=== PATIENT | female | born 1940 | race Caucasian/White ===

== ENCOUNTER 2017-06-10 10:30 | Outpatient (RCR) | payer MEDICARE, OTHER, SELFPAY ==
--- NOTE | 2017-05-18 13:54 | HP.PTEVAL_ITS ---
Patient's Visit Information EVENS ORDOÑEZ is a 76 year old F referred to Physical Therapy by Elijah PATTEN with a diagnosis of BILATERAL ROTATOR CUFF SYNDROME. Date of Evaluation: 05/18/17 Physical Therapist: Chay Mccauley PT, - Visit Plan Frequency: 2x /Week Duration: 4 Weeks Plan: POSTURAL EX'S,SHOULDER STRENGTHENING,MODALITIES - Subjective Subjective: Patient 76 y/o female presents to physical therapy with bilateral shoulder RTC syndrome. Patient has had shoulder pain for 2 months.Located UT - shoulder with dull ache ocassionally sharp. Symptoms worse with sitting plying cards, lifting OH. Patient has some difficulty sleeping. Denies parathesia/ tingling. Pain affects ADL'S and housework cleaning. SOCIAL: . VOCATION: RETIRED - Pain Bilateral Shoulder Pain Intensity (Out of 10): 3 Pain Intensity Range: 10 - Objective POSTURE: mild head foward. PALPTION: UT /levator. NEUR0: denies parathesia/ tingling ,reflexes C-5-6-7. CERVICAL ROM: flexion min loss,lateral flexion/ rotation mod loss, mod for extension. AROM: shoulder flexion /abduction 160 , ER 90 ,IR 80 degrees. MMT: RTC 4/5 ,except infraspinatous/supraspinatous on left slight pain,deltoid 4-/5 - Special Tests C/S Radiculapathy - Left Upper limb tension test: Negative C/S Radiculapathy - Right Upper limb tension test: Negative C/S Radiculapathy - Left Spurlings: Negative C/S Radiculapathy - Right Spurlings: Negative C/S Radiculapathy - Left Cervical distraction: Negative C/S Radiculapathy - Right Cervical distraction: Negative Vertebral Artery Test: Negative R Shoulder Lift Off Test - Subscapular Tear: Negative R Shoulder Drop Sign - IS Test: Negative R Shoulder Empty Can - SS: Negative R Shoulder Belly Press - SupScap: Negative R Shoulder Neer - Impingement: Negative R Shoulder Miller Armand - Impingement: Negative L Shoulder Supine Impingement Test - RC Tear: Negative L Shoulder Lift Off Test - Subscapular Tear: Negative L Shoulder Drop Sign - IS Test: Negative L Shoulder Empty Can - SS: Negative L Shoulder Neer - Impingement: Negative L Shoulder Miller Armand - Impingement: Negative - Goals Goal 1:: Independa nt with HEP Goal Time Frame: 2-4 Weeks Goal 2:: Independant with posture for ADL'S Goal Time Frame: 2-4 Weeks Goal 3:: Decrease shoulder pain by 50% or greater to improve function with ADL' S Goal Time Frame: 2-4 Weeks Goal 4:: Patient be able to perform ADL'S and house work tasks witgh min , limitations Goal Time Frame: 2-4 Weeks Goal 5:: Patient to increase strength good to impove function. Goal Time Frame: 2-4 Weeks - Rehabilitation Potential Physical Therapy Diagnosis: This patient appears to hane pain bilateral UT - shoulder from postural deficits and weakness. thus benifit from skilled PT Rehabilitation Potential: Good - Anticipated Interventions Patient/Client Instruction: Educate patient on: Condition, Plan of Care For the Purpose of:: To decrease pain, To increase ROM, To improve muscle performance and motor function, To improve ability to perform ADL's, To increase tolerance to activity/condition/position, To improve ability of physical actions for home/community/work/leisure, To improve health of tissue, To decrease soft tissue restriction, To increase flexibility/ROM, To improve ability to perform tasks related to life management Therapeutic Exercise to Include: Strength training, Postural training, Flexibilty training, Active ROM For the Purpose of:: To decrease pain, To increase ROM, To improve muscle performance and motor function, To improve ability to perform ADL's, To increase tolerance to activity/condition/position, To improve performance and independence with ADL's, To improve health of tissue, To decrease soft tissue restriction, To increase flexibility/ROM, To improve ability to perform tasks related to life management TENS: Yes IF ES: Yes Cryotherapy (ice pack, ice massage): Yes Thermo therapy (hot pack): Yes Ultrasound (thermal/non thermal): Yes For the Purpose of:: To decrease pain, To increase ROM, To improve nutrient delivery to tissue, To increase oxygenation perfusion, To improve health of tissue, To decrease soft tissue restriction, To increase flexibility/ROM Thank you for the opportunity to evaluate your patient. For Medicare and Medicare HMO plans, please review the plan of care and approve it. It will need to be FAXED BACK to us at [phone] for Medicare purposes. Please let me know if there are questions or concerns regarding this plan of care. Physician Signature: Date:
--- NOTE | 2017-09-28 16:02 | HP.PTDCSUM_ITS ---
HP - PT D/C Summary It has been my pleasure to treat EVENS Adler MCMORROW under orders from Elijah Adam , for the diagnosis of BILATERAL ROTATOR CUFF SYNDROME for a total of 6 visit(s) . Discharge Date: 06/10/17 Please see the following information for a summary of their discharge status. - Subjective Subjective: Patient symptoms about same. But pain is intermittant. in right shoulder describes as a ache. No pain right now - Pain Bilateral Shoulder Pain Intensity (Out of 10): 0 - Objective Objective/Function: POSTURE: mild foward head. PALPATION: tender UT. AROM: shoulder flexion /abd 155 degrees ,ER 90 ,80 degrees. MMT: RTC 4/5 ,deltoid 4-/ 5. CERVICAL ROM: flexion min loss,rotation/lateral flexion mod loss ext mod loss. + response with cervical traction less pain in shoulder - Goals Goal 1:: Independa nt with HEP Goal Progress: Goal Met Goal 2:: Independant with posture for ADL'S Goal Progress: Progressing Goal 3:: Decrease shoulder pain by 50% or greater to improve function with ADL' S Goal Progress: Progressing Goal 4:: Patient be able to perform ADL'S and house work tasks witgh min , limitations Goal Progress: Progressing Goal 5:: Patient to increase strength good to impove function. Goal Progress: Progressing - Plan Plan: RTD ,possibel cervical involvemnt vs RTC. Pain not reproduced with RTC MMT or motion. playing cards sitting reproduces ache - D/C Information Discharge Comments: RTD FOR FURTHER DIAGNOSTICS If there are questions or concerns regarding this patient's physical therapy, please feel free to call me at [phone]. Thank you for the referral of this patient. Sincerely, Chay Mccauley, PT,
== END 2017-06-10 19:00 | disposition home or self-care (01) ==
LOC: PT 10:30
PROVIDERS: Family Provider Family Medicine; PCP Family Medicine; Visit Provider Family Medicine
DX: M75.102 Unspecified rotator cuff tear or rupture of left shoulder, not specified as traumatic (principal); M75.101 Unspecified rotator cuff tear or rupture of right shoulder, not specified as traumatic
CPT/HCPCS: 97014; 97035; 97110; 97140; 97162; 97530; G0283; G8979; G8982

== ENCOUNTER → 2018-10-12 06:25 | Outpatient (CLI) | payer MEDICARE, OTHER, SELFPAY ==
[2018-02-08 15:35] VITALS: BMI 21.0
[2018-08-09 08:43] VITALS: BMI 20.7
--- NOTE | 2018-10-12 09:10 | STRESSREP_ITS ---
Stress Test Report Date: Procedure: Pharmacologic stress nuclear imaging study Indications: Chest pain; CAD; PCI Consent: Per the patient Procedure: The patient underwent pharmacologic (Regadenoson) evaluation with a peak heart rate of 87 beats per minute (60 %predicted maximal heart rate) and a peak blood pressure of 162/84 mmHg. The baseline ECG demonstrated sinus bradycardia; nonspecific T wave abnormality. The peak pharmacologic ECG demonstrated no obvious ECG changes. There were no cardiac dysrhythmias pretest, during pharmacologic infusion, or recovery. There was no complaint of chest discomfort during pharmacologic infusion or recovery. The examination was discontinued secondary to completion of protocol. Impression: 1. Pharmacologic (Regadenoson) evaluation 2. Peak pharmacologic ECG with no obvious ECG changes. 3. There were no cardiac dysrhythmias pretest, during pharmacologic infusion, or recovery. 4. Nuclear images pending Myocardial perfusion imaging study: Technique: The patient was injected with 11.1 millicuries of technetium 99m Cardiolite and subsequently rest SPECT Cardiolite nuclear imaging was obtained in the horizontal long, vertical long, and short axis views. The patient underwent pharmacologic (Regadenoson) evaluation with a peak heart rate of 87 beats per minute (60 % percent predicted maximal heart rate) and a peak blood pressure of 162/84 mmHg. The patient was injected with 33.3 millicuries of technetium 99m Cardiolite and subsequently stress SPECT Cardiolite nuclear imaging was obtained in the horizontal long, vertical long, and short axis views. A gated Cardiolite study at peak stress was obtained. Interpretation: Rest and stress SPECT Cardiolite nuclear imaging status post realignment, normalization, and attenuation correction demonstrate at rest relative uniform tracer uptake. Status post stress there is notation of a small area of diminished tracer uptake in the mid anterior segments. There is end systolic thickening and brightening. The gated Cardiolite study demonstrates myocardial thickening and inward wall motion. The reported LVEF is 79 %. Impression: 1. Rest and stress SPECT cardio light nuclear imaging demonstrate myocardial perfusion changes compatible with an area of stress-induced myocardial ischemia in the mid anterior segments, however, an element of shifting soft tissue/artifact cannot necessarily be excluded.. 2. The gated Cardiolite study reports an LVEF of 79 %. This note was generated with [employer] software. It may contain incorrect words, spelling, and punctuation that were not noted in checking the note before signing.
== END ==
PROVIDERS: Family Provider Family Medicine; PCP Family Medicine; Referring Provider Internal Medicine Cardiovascular Disease; Visit Provider Internal Medicine Cardiovascular Disease
DX: I25.10 Atherosclerotic heart disease of native coronary artery without angina pectoris (principal); I25.5 Ischemic cardiomyopathy; R07.9 Chest pain, unspecified; Z95.5 Presence of coronary angioplasty implant and graft
CPT/HCPCS: 78452; 93017; A9500; A4216; J2785

== ENCOUNTER 2018-10-25 06:43 | Day surgery (SDC) | payer MEDICARE, OTHER, SELFPAY ==
[2018-08-09 08:43] VITALS: BMI 20.7
--- NOTE | 2018-10-19 03:28 | HP_ITS ---
HPI HPI History of Present Illness Surgical H&P: Yes Details: EVENS ORDOÑEZ, is a 77 F who presents to the office today for a cardiovascular follow-up. She has a history of coronary artery disease with stenting to her LAD and RCA in 2013. 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 She has complained of chest tightness concerning for angina pectoris. She has noted this occurs more so in the evening hours. She has denied orthopnea or PND or peripheral pitting edema. There has been no near syncope or syncope. She is undergone previous noninvasive studies including a recent pharmacologic stress nuclear imaging study. The results are as noted below. She presents back today in preparation for upcoming diagnostic cardiac catheterization. The procedure and risks have been discussed with her. She has been agreeable to this approach. Intake Vital Signs 10/19/18 Height 5 ft 3 in 10/19/18 Weight: 116 lb 10/19/18 Body Mass Index (BMI) 20.5 10/19/18 Blood Pressure 142/60 H 10/19/18 Blood Pressure Location Lt brachial 10/19/18 Blood Pressure Position Sitting 10/19/18 Respiratory Rate 16 10/19/18 Pulse Rate 60 10/19/18 Pulse Source Auscultation 10/19/18 Body Mass Index (BMI) 20.7 Intake Visit Reasons: Update [employer] Required: No Accompanied by: Self Allergies morphine Adverse Reaction (Severe, Verified 10/19/18 14:43) Junctional rhythm lisinopril Adverse Reaction (Intermediate, Verified 10/19/18 14:43) Cough Medications Levothyroxine [Synthroid] 75 mcg PO DAILY 09/23/13 [History Confirmed 10/19/18] Aspirin [Aspirin, Baby] 81 mg PO DAILY@0800 03/16/15 [History Confirmed 10/19/18] Nitroglycerin (INPATIENT USE) [Nitrostat] 0.4 mg SUBLINGUAL Q5M PRN 03/16/15 [History Confirmed 10/19/18] lorazepam 2 mg tablet 1 mg PO QHS tab 02/08/18 [History Confirmed 10/19/18] omeprazole 20 mg capsule,delayed release 40 mg PO DAILY cap 02/08/18 [History Confirmed 10/19/18] losartan 50 mg tablet 50 mg PO BID #180 tab 05/31/18 [Rx Confirmed 10/19/18] amlodipine 5 mg tablet 5 mg PO DAILY #90 tab 07/10/18 [Rx Confirmed 10/19/18] pravastatin 80 mg tablet 80 mg PO QHS #90 tab 07/10/18 [Rx Confirmed 10/19/18] metoprolol tartrate 25 mg tablet 25 mg PO BID #180 tab 07/31/18 [Rx Confirmed 10/19/18] clopidogrel 75 mg tablet 75 mg PO DAILY #30 tab 10/19/18 [Rx Confirmed 10/19/18] PFS Medical History Abnormal stress test (Acute) Pure hypercholesterolemia (Chronic) Essential hypertension (Chronic) Atherosclerotic heart disease of [place] coronary artery without angina pectoris (Chronic) History of coronary artery stent placement (Chronic ~09/25/13) Old myocardial infarction (Chronic) meterman use of drug (Chronic) Ischemic cardiomyopathy (Chronic) Abnormal ECG (Chronic) Abnormal serum enzyme level (Chronic) Angina pectoris (Chronic) Chest pain (Chronic) Hypothyroidism (Chronic) NSTEMI (non-ST elevation myocardial infarction) (Chronic) Surgical History Presence of coronary angioplasty implant and graft (Chronic ~09/25/13) Family History Mother Breast cancer Myocardial infarction CAD (coronary artery disease) Diabetes Father Myocardial infarction CAD (coronary artery disease) Brother Myocardial infarction Diabetes CAD (coronary artery disease) Sister Breast cancer Hypertension Social History (Updated 10/19/18 @ 15:28 by Arnaud Mata MD) Smoking Status: Never smoker alcohol intake: never substance use type: does not use caffeine: No what type of physical activity do you participate in: walking frequency: 3-4 times per week duration: 45-60 minutes/day seatbelt use: always do you feel safe at home: Yes ROS Const Const: Negative for fatigue, weakness, frequent falls, excessive sweating, weight gain or weight loss Eyes Eyes: Negative for transient loss of vision, blurry vision or change in vision ENT ENT: Negative for dizziness or balance problems Cardio Chest Pain: Yes Character: tightness Onset: with meals (after) Location: other (across the chest) Duration: minutes Relieving: rest, other (rolaids) Palpitations: No Edema: None Muscle aches with walking: None Resp Respiratory: Negative for SOB with activity or SOB at rest GI GI: Negative vomiting or vomiting blood/hematemesis : Negative for hematuria Musc Musc: Negative for muscle aches/ myalgia, muscle weakness, joint pain or balance problems Skin Skin: Negative non-healing lesions or rash Neuro Neuro: Negative for dizziness, lightheadedness, orthostatic symptoms, frequent falls, weakness or blurry vision Jovani Hematologic/Lymphatic: Negative for easy bleeding Endo Endo: Negative for fatigue or excessive sweating Psych Psych: Negative for anxiety or depression Allergy Allergy/Immunology: Negative for hives, Negative for rash Cardiology Exam Const Appearance: cooperative, healthy appearing, comfortable, no acute distress, well developed and well groomed Nutritional Appearance: thin Orientation: alert, awake and oriented x3 Head Head: normal to inspection, normocephalic and atraumatic Ears: hearing grossly normal bilaterally Nose: external nose normal Face and Sinus: face symmetric Mouth: moist mucous membranes Teeth and gingiva: fair dentition Eyes Eyelids: eyelids normal Conjunctivae: conjunctivae normal Pupils: PERRL EOM: EOM intact bilaterally Neck Neck: normal visual inspection, full ROM and no JVD Carotids: normal carotid upstroke; negative bruit Neck Mass: Negative Neck mass Chest Chest inspection: normal inspection of the chest, symmetric chest movement and normal respiratory effort Auscultation: Bilateral: Clear to Auscultation Cardio Palpation: normal PMI Rate: regular rate Rhythm: regular rhythm Heart sounds: S1 normal and S2 normal; negative rub, gallop or murmur Murmur: Grade 2/6, soft, mid systolic, LLSB, LVOT and sternal notch GI GI: normal to inspection, soft and bowel sounds present; negative tender Neuro General: alert, awake, oriented x3 and moves all extremities Skin Skin: no rashes or lesions noted Extremities Pulses: Normal: Right Posterior Tibial Pulse, Left Posterior Tibial Pulse, Right Radial Pulse, Left Radial Pulse Lower Extremity Edema: None: Bilateral Psych Psychological: normal affect Assessment & Plan 1. Angina pectoris I20.9 Plan She does have symptoms concerning for angina pectoris. She is continuing medical management. She is going to proceed with further evaluation with diagnostic cardiac catheterization. Orders Orders: Left Heart Cath/COR/LV Percut Today Echo Complete Today 2. CAD (coronary artery disease), [place] coronary artery I25.10 Plan She does have a history of CAD. She is undergone medical therapy. She has had PCI in the past. Based upon her ongoing symptoms concerning for angina pectoris and her recent noninvasive studies she will have further evaluation with diagnostic cardiac catheterization. Orders Orders: Left Heart Cath/COR/LV Percut Today Echo Complete Today 3. H/O heart artery stent Z95.5 PTCA/POLA from the mid to distal RCA and from the prox to mid RCA 09/25/13; Plan She has a history of PCI. This includes PCI to the LAD and the RCA systems. Her stress images suggest concerns in the LAD distribution. She will continue evaluation care as noted above. Orders Orders: Left Heart Cath/COR/LV Percut Today Echo Complete Today 4. Cardiomyopathy, ischemic I25.5 Plan She will have a follow-up echocardiogram to reassess her left ventricular wall motion and overall systolic function. Orders Orders: Left Heart Cath/COR/LV Percut Today Echo Complete Today 5. Aortic valve disorder I35.9 Plan She does have a cardiac murmur. This may be related to aortic sclerosis. She will be reassessed with an echo cardia graphic study to compare to her study from 2015. Orders Orders: Left Heart Cath/COR/LV Percut Today Echo Complete Today 6. Pure hypercholesterolemia E78.00 Plan She will continue risk factor evaluation and care. Orders Orders: Left Heart Cath/COR/LV Percut Today Echo Complete Today 7. Essential hypertension I10 Orders Orders: Left Heart Cath/COR/LV Percut Today Echo Complete Today 8. Abnormal stress test R94.39 Plan Again she is undergone evaluation with an exercise tolerance test. The results are as noted above. She will proceed with further evaluation with diagnostic cardiac catheterization. Orders Orders: Left Heart Cath/COR/LV Percut Today Echo Complete Today Plan Detail Other Medications New: clopidogrel 75 mg PO DAILY 30 tabs 3RF Additional Comments She will continue with future outpatient cardiovascular follow-up. Thank you for allowing me to participate in the care of your patient. Please don't hesitate to call if any issues arise. This note was generated using a voice recognition system and there may be incorrect words, spelling or punctuation that were not noted when reviewing the office note prior to saving. Follow Up 03/12/19 (PFM) Coding Level of Care Code Off vis,est,level 5 Diagnoses Angina pectoris I20.9 CAD (coronary artery disease), [place] coronary artery I25.10 ??[place] vs. transplanted heart: [place] heart H/O heart artery stent Z95.5 Cardiomyopathy, ischemic I25.5 Aortic valve disorder I35.9 Pure hypercholesterolemia E78.00 Essential hypertension I10 Abnormal stress test R94.39 Coding Level of Care Code Off vis,est,level 5 Diagnoses Angina pectoris I20.9 CAD (coronary artery disease), [place] coronary artery I25.10 ??[place] vs. transplanted heart: [place] heart H/O heart artery stent Z95.5 Cardiomyopathy, ischemic I25.5 Aortic valve disorder I35.9 Pure hypercholesterolemia E78.00 Essential hypertension I10 Abnormal stress test R94.39 Supplemental Info Supplemental Information Transthoracic echocardiogram: Interpretation Summary Limited views were obtained. Mild segmental systolic dysfunction (see wall motion). The estimated ejection fraction is 50 %. The left atrium is mildly enlarged. Mild focal aortic valve thickening. Mild focal aortic valve calcification. Stress Test Report Date: ?? Procedure: Pharmacologic stress nuclear imaging study Indications: Chest pain; CAD; PCI Consent: Per the patient Procedure: The patient underwent pharmacologic (Regadenoson) evaluation with a peak heart rate of 87 beats per minute (60 %predicted maximal heart rate) and a peak blood pressure of 162/84 mmHg. The baseline ECG demonstrated sinus bradycardia; nonspecific T wave abnormality. The peak pharmacologic ECG demonstrated no obvious ECG changes. There were no cardiac dysrhythmias pretest, during pharmacologic infusion, or recovery. There was no complaint of chest discomfort during pharmacologic infusion or recovery. The examination was discontinued secondary to completion of protocol. Impression: 1. Pharmacologic (Regadenoson) evaluation 2. Peak pharmacologic ECG with no obvious ECG changes. 3. There were no cardiac dysrhythmias pretest, during pharmacologic infusion, or recovery. 4. Nuclear images pending Myocardial perfusion imaging study: Technique: The patient was injected with 11.1 millicuries of technetium 99m Cardiolite and subsequently rest SPECT Cardiolite nuclear imaging was obtained in the horizontal long, vertical long, and short axis views. The patient underwent pharmacologic (Regadenoson) evaluation with a peak heart rate of 87 beats per minute (60 % percent predicted maximal heart rate) and a peak blood pressure of 162/84 mmHg. The patient was injected with 33.3 millicuries of technetium 99m Cardiolite and subsequently stress SPECT Cardiolite nuclear imaging was obtained in the horizontal long, vertical long, and short axis views. A gated Cardiolite study at peak stress was obtained. Interpretation: Rest and stress SPECT Cardiolite nuclear imaging status post realignment, normalization, and attenuation correction demonstrate at rest relative uniform tracer uptake. Status post stress there is notation of a small area of diminished tracer uptake in the mid anterior segments. There is end systolic thickening and brightening. The gated Cardiolite study demonstrates myocardial thickening and inward wall motion. The reported LVEF is 79 %. Impression: 1. Rest and stress SPECT cardio light nuclear imaging demonstrate myocardial perfusion changes compatible with an area of stress-induced myocardial ischemia in the mid anterior segments, however, an element of shifting soft tissue/artifact cannot necessarily be excluded.. 2. The gated Cardiolite study reports an LVEF of 79 %. Labs LDL Cholesterol 59 mg/dL (0-130) 06/12/15 HDL Cholesterol 56 mg/dL (40-) 06/12/15 Triglycerides 128 mg/dL (-199) 06/12/15 VLDL Cholesterol 26 mg/dL (5-40) 06/12/15 Diagnostics Electrocardiogram 05/13/16 Echocardiogram 03/20/14 Stress Test Nuclear Medicine 08/22/14 Stress Test 10/12/18 Chest X-Ray 05/13/16 10/19/18 [id number] <Electronically signed by Arnaud gonsalez MD> Date _ Arnaud Mata MD I have re-examined the patient. There are no clinical changes since date of exam.
[2018-10-19 14:43] VITALS: BMI 20.5
--- NOTE | 2018-10-19 15:35 | RAD_ITS ---
STUDY: X-RAY CHEST REASON FOR EXAM: Female, 77 years old. Abnormal stress test, chest tightness, pending heart catheterization future. TECHNIQUE: PA and lateral chest COMPARISON: 05/13/2016 FINDINGS: Stable chronic calcified granuloma of the left lung apex. Pulmonary hyperlucency and hyperinflation with hemidiaphragm flattening consistent with COPD/emphysema. Normal cardiomediastinal silhouette, dylan and pleural margins. No acute osseous or upper abdominal process. 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 Electronically Signed: Darwin Mercado MD at 16:10 EDT Tel , Service support ,
[2018-10-19 17:06] LABS: Hematocrit 44.4 % (37-47); Hemoglobin 14.2 g/dL (12.0-15.0); Mean Corpuscular Hgb 29.7 pg (27.0-32.0); Mean Corpuscular Volume 92.9 fL (81-99); Platelet Count 299 K/mm3 (150-450); RBC Distribution Width CV 12.4 % (11.6-14.6); RBC Distribution Width SD 42.5 fl (35.1-43.9); Red Blood Count 4.78 M/mm3 (4.2-5.4)
[2018-10-19 17:16] LABS: Prothrombin Time (Protime)PT. 12.9 SECONDS (11.7-14.9)
[2018-10-19 17:17] LABS: Partial Thromboplast Time 36.4 Seconds (24.1-36.2)
[2018-10-19 18:07] LABS: Anion Gap 10 (5-15); BUN 13 mg/dL (7-18); Calcium,Total 8.9 mg/dL (8.5-10.1); Chloride 106 mmol/L (98-107); Creatinine, Serum 0.81 mg/dL (0.55-1.02); EST Glomerular Filtration Rate 73 mL/min (>60); Est Glom Filt Rate - Afr Amer 88 mL/min (>60); Glucose 73 mg/dL (74-106); Sodium Level 142 mmol/L (136-145)
--- NOTE | 2018-10-25 19:15 | CL.D_ITS ---
Patient Name: EVENS ORDOÑEZ Study Date: 10/25/2018 Performing: Arnaud Mata MD Ht: 63 inches 160 cm : 1940 Wt: 115.1 lbs 52.16 kg Age: 77 Gender: female BSA: 1.53 PROCEDURE(S) PERFORMED [id number]/LV CLINICAL PROFILE AND INDICATIONS Indications: Worsening Angina Heart Failure: None Stress/Imaging Date: 10/12/18Stress Test with SPECT MPI: Positive Angina Classification Anginal Classification w/in 2 Weeks: CCS III CAD Presentations: Stable angina. CONCLUSIONS Normal Left Ventricular End Diastolic Pressure Normal LV size, wall motion,and systolic function LVEF: by LV gram 55 % [place] Multivessel CAD RECOMMENDATIONS Risk factor modification Medical therapy DESCRIPTION OF PROCEDURE The patient arrived to the procedure lab. The risks and benefits of the procedure as well as a full d escription of our services here and current unavailability of surgical backup were fully explained to the patient and/or their significant other prior to the catheterization. The Timeout was completed, verifying the correct patient and procedure. The patient's procedural site was prepped and draped in the usual fashion. Local anesthetic was given subcutaneously to right groin region with Lidocaine 2%. Using a modified Seldinger technique, arterial access was obtained via the right femoral artery, a 4 Fr sheath was inserted Left Coronary Artery selective angiography was performed in multiple views us ing a 4 Fr. JL5 catheter. Right Coronary Artery selective angiography was then performed in multiple views using a 4 Fr. 3DRC catheter. Left Ventriculography was performed in JORDAN projection using a 4 Fr . Pigtail catheter. LV to AO pullback pressures were then recorded. Left Coronary Artery selective angiography was performed in multiple views using a 4 Fr. JL5 catheter.The arterial sheath was pulled and manual compression applied until hemostasis is achieved. CORONARY ANGIOGRAPHY DOMINANCE: Right Dominant LEFT HEART ASSESSMENT Left Ventricular Ejection Fraction: by LV Gram 55 % Normal LV wall motion Normal Left Ventricular End Diastolic Pressure LVEDP: 8 mmHg LEFT MAIN: Absent: Separate ostia to the LAD and LCX LEFT ANTERIOR DESCENDING ARTERY: PROX LAD: Previously placed stent is patent MID LAD: small caliber vessel: 85 % Stenosis with no significant change s/p IC NTG 200 mcg CIRCUMFLEX ARTERY: small caliber vessel: diffuse 95 % Stenosis RIGHT CORONARY ARTERY: PROX RCA: Previously placed stent is patent MID RCA: Previously placed stent is patent DISTAL RCA: Mild luminal irregularities VALVE FINDINGS: Normal Aortic Valve function Normal Mitral Valve function AORTIC ROOT: Angiographically normal COMPLICATIONS No Complications PROCEDURE MEDICATIONS Versed 1 mg IV Oxygen: 2 L/min via nasal cannula Nitro 200 mcg IC 10/25/2018 08:39:24 SUMMARY OF HEMODYNAMIC DATA Time AIR REST ECG 07:02:47 AO 146/68 (97) SA 08:14:10 ECG 08:21:14 LV 169/12, 29 08:22:21 LV 156/10, 27 08:22:27 LV 166/7, 27 08:23:10 LV 175/5, 8 08:23:15 LV 181/11, 30 08:24:10 LV 162/14, 25 08:24:16 LVp 186/39, 70 08:24:23 AOp 187/92 (134) 08:24:28 ECG 08:25:39 Signed By Arnaud Mata MD On 10/25/2018 19:15:22 Arnaud Mata MD
== END 2018-10-25 13:10 | disposition home or self-care (01) ==
LOC: CLSP 06:44
PROVIDERS: Family Provider Family Medicine; PCP Family Medicine; Referring Provider Internal Medicine Cardiovascular Disease; Visit Provider Internal Medicine Cardiovascular Disease
DX: I25.110 Atherosclerotic heart disease of native coronary artery with unstable angina pectoris (principal); R07.9 Chest pain, unspecified; E78.00 Pure hypercholesterolemia, unspecified; I10 Essential (primary) hypertension; I35.9 Nonrheumatic aortic valve disorder, unspecified; I25.5 Ischemic cardiomyopathy; E03.9 Hypothyroidism, unspecified; R01.1 Cardiac murmur, unspecified; I25.2 Old myocardial infarction; Z79.82 Long term (current) use of aspirin; Z95.5 Presence of coronary angioplasty implant and graft; R94.39 Abnormal result of other cardiovascular function study; Z82.49 Family history of ischemic heart disease and other diseases of the circulatory system
CPT/HCPCS: 36415; 71046; 80048; 85027; 85610; 85730; 93458; 99152; 99153; J7040; Q9967; C1769; C1887; C1894

== ENCOUNTER → 2018-11-16 10:54 | Outpatient (CLI) | payer MEDICARE, OTHER, SELFPAY ==
[2018-10-19 14:43] VITALS: BMI 20.5
--- NOTE | 2018-11-16 10:55 | ECHOD_ITS ---
Reason For Study: MURMUR Procedure This was a 2D Doppler, Color Flow transthoracic echocardiogram. The exam was of adequate technical quality. Exam performed in department. Left Ventricle Normal LV size. Left ventricular systolic function is normal. The estimated ejection fraction is 55 %. No evidence for diastolic dysfunction. No regional wall motion abnormalities noted. Right Ventricle Normal RV size. Normal systolic function. Atria The left atrium is mildly enlarged. Normal right atrium. No doppler evidence for ASD. Mitral Valve There is no mitral annular calcification. Normal mitral valve. Mild-Moderate (1-2+) mitral valve insufficiency. Tricuspid Valve Normal tricuspid valve. Mild tricuspid valve insufficiency. Right ventricular systolic pressure estimated to be 29 mmHg. Aortic Valve Trisinus/trileaflet aortic valve. Mild focal aortic valve thickening. Pulmonic Valve The pulmonic valve is not well visualized. Trivial pulmonic valve insufficiency. Great Vessels Normal sized aortic root. Pericardium/Pleural No pericardial effusion. MMode/2D Measurements & Calculations LVIDd: 4.7 cm IVSd: 0.96 cm Ao root diam: 3.0 cm LVIDs: 3.0 cm LVPWd: 0.89 cm RVDd: 3.2 cm FS: 35.7 % LAV(MOD-bp): 44.8 ml LA A4 area: 15.3 cm2 LA dimension(2D): 3.5 cm LAV(MOD-bp) Indexed: 29.4 ml/m2 LAV(MOD-sp2): 56.3 ml LAV(MOD-sp4): 35.1 ml RA A4 area: 14.3 cm2 Time Measurements MV dec time: 0.22 sec Doppler Measurements & Calculations MV E max gage: 62.7 cm/sec Lat Peak E' Gage: 7.7 cm/sec Med Peak E' Gage: 4.7 cm/sec MV A max gage: 79.3 cm/sec E/E' lat: 8.2 E/E' med: 13.3 MV E/A: 0.79 Ao V2 max: 163.3 cm/sec AI max gage: 474.1 cm/sec LV V1 max: 93.0 cm/sec Ao max P.7 mmHg AI max P.9 mmHg LV V1 max P.5 mmHg AI dec slope: 214.4 cm/sec2 AI P1/2t: 647.5 msec PA V2 max: 74.0 cm/sec PI end-d gage: 103.2 cm/sec TR max gage: 256.0 cm/sec TR max P.2 mmHg Interpretation Summary Left ventricular systolic function is normal. The estimated ejection fraction is 55 %. The left atrium is mildly enlarged. Mild-Moderate (1-2+) mitral valve insufficiency. Mild tricuspid valve insufficiency. Mild focal aortic valve thickening. Trivial pulmonic valve insufficiency. Right ventricular systolic pressure estimated to be 29 mmHg. No evidence for diastolic dysfunction. Ordering Physician: Arnaud Mata Referring Physician: JORDYN PINEDA Performed By: Riri Chris, BRETT, RVT
== END ==
PROVIDERS: Family Provider Family Medicine; PCP Family Medicine; Referring Provider Internal Medicine Cardiovascular Disease; Visit Provider Internal Medicine Cardiovascular Disease
DX: I25.119 Atherosclerotic heart disease of native coronary artery with unspecified angina pectoris (principal); I10 Essential (primary) hypertension; I25.5 Ischemic cardiomyopathy; I35.9 Nonrheumatic aortic valve disorder, unspecified; Z95.5 Presence of coronary angioplasty implant and graft; R94.39 Abnormal result of other cardiovascular function study; E78.00 Pure hypercholesterolemia, unspecified
CPT/HCPCS: 93306

== ENCOUNTER 2019-04-04 13:30 | Outpatient (RCR) | payer MEDICARE, OTHER, SELFPAY ==
[2019-02-28 13:02] VITALS: BMI 21.8
--- NOTE | 2019-03-28 13:50 | HP.PTEVAL ---
Patient's Visit Information EVENS ORDOÑEZ is a 78 year old F referred to Physical Therapy by Ulices Wahl DO with a diagnosis of Bilateral Shoulder Pain. Date of Evaluation: 03/28/19 Physical Therapist: Rocio Rain DPT - Visit Plan Frequency: 2x /Week Duration: 4 Weeks Plan: Focus on scap s/s and postural strengthening - Subjective Findings: Patient reports that both of her shoulders are giving out- saw Dr. 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 Its better but they both still bother her. Right hand dominate. Pain is located in the shoulder blade- No radiating pain. Describes the pain as dull and achy. 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 No KATZ, blurred vision or dizziness. Worst: 4/10 Agg: playing cards - reaching out to pull in cards. Eases: wears a brace when she plays cards, aspercream, heat. Best: 0/10. Sleep: if she plays cards late they ache before bed but don't wake her up- side sleeper. Plays cards- 5x a week. PMHx/Meds: see list. - Objective Posture: FH, RS- can correct but does not maintain. Gait: no deviation noted- good arm swing and trunk rotation. Observation: winging of the tip of the scapula. Palpatoin: not tender. ROM: WFL in all planes of the cervical spine, shoulder, elbow and wrist/hand. Strength: Scap: poor, Shoulder: 4/5 throughout bilaterally Elbow: 4/5, Wrist: 4+/5 Pathologist Assistant: equal. Special Test: impingment: negative, Empty Can: negative - Goals Goal 1:: Patient will be I with HEP and progression Goal Time Frame: 4-6 Weeks Goal 2:: Patient will maintain proper posture t/o tx session to demo increased scap s/s Goal Time Frame: 4-6 Weeks Goal 3:: Patient will report no pain with cards for 1 week Goal Time Frame: 4-6 Weeks - Rehabilitation Potential Physical Therapy Diagnosis: Patient presents with hypomobility- she has decreased ROM, strength and muscular endurance leading to poor posture and increased pain with ADl's. Rehabilitation Potential: Good - Anticipated Interventions Patient/Client Instruction: Educate patient on: Benefits of Fitness Program Therapeutic Exercise to Include: Strength training, Endurance training, Body mechanics, Postural training, Neuromotor development, Passive ROM, Active ROM, Dynamic Lumbar Stabilization, Scapular Strength/Stabilization For the Purpose of:: To improve muscle performance and motor function Thank you for the opportunity to evaluate your patient. For Medicare and Medicare HMO plans, please review the plan of care and approve it. It will need to be FAXED BACK to us at [phone] for Medicare purposes. For Medicare only, by signing this I certify the plan of care. Please let me know if there are questions or concerns regarding this plan of care. Physician Signature: Date:
--- NOTE | 2019-07-03 11:19 | HP.PT.NRP ---
EVENS ORDOÑEZ was seen in my office for initial evaluation on 03/28/19. The following Plan of Care was established for this patient: Initial Frequency: 2x /Week Initial Duration: 4 Weeks Patient/Client Instruction: Educate patient on: Benefits of Fitness Program Therapeutic Exercise to Include: Strength training, Endurance training, Body mechanics, Postural training, Neuromotor development, Passive ROM, Active ROM, Dynamic Lumbar Stabilization, Scapular Strength/Stabilization For the Purpose of:: To improve muscle performance and motor function This patient was last seen in our office . Pertinent comments regarding their Physical therapy will appear below: Patient has not attended physical therapy in over 8 weeks- appropriate for d/c and return to MD as appropriate. At this point I will be discontinuing this patient from physical therapy. I would be happy to see this patient again in the future if found appropriate by the physician. Thank you! ARTURO NormanT
== END 2019-04-04 19:00 | disposition home or self-care (01) ==
LOC: PT 13:30
PROVIDERS: PCP Family Medicine; Visit Provider Orthopaedic Surgery
DX: M19.011 Primary osteoarthritis, right shoulder (principal)
CPT/HCPCS: 97110; 97161

== ENCOUNTER → 2019-09-14 10:53 | Outpatient (CLI) | payer MEDICARE, OTHER, SELFPAY ==
[2019-09-12 14:38] VITALS: BMI 21.5
== END ==
PROVIDERS: PCP Family Medicine; Referring Provider Internal Medicine Cardiovascular Disease; Visit Provider Internal Medicine Cardiovascular Disease
DX: R00.2 Palpitations (principal); I25.119 Atherosclerotic heart disease of native coronary artery with unspecified angina pectoris; I34.9 Nonrheumatic mitral valve disorder, unspecified; I25.5 Ischemic cardiomyopathy; I10 Essential (primary) hypertension; E78.00 Pure hypercholesterolemia, unspecified; Z95.5 Presence of coronary angioplasty implant and graft
CPT/HCPCS: 93225; 93226

== ENCOUNTER → 2019-10-02 | Outpatient (CLI) | payer MEDICARE, OTHER, SELFPAY ==
[2019-09-12 14:38] VITALS: BMI 21.5
== END | disposition home or self-care (01) ==
LOC: LABSPEC 16:24
PROVIDERS: PCP Family Medicine; Referring Provider Urology; Visit Provider Urology
DX: R82.998 Other abnormal findings in urine (principal)
CPT/HCPCS: 87086

== ENCOUNTER 2019-10-05 12:14 | Emergency (ER) | payer MEDICARE, OTHER, SELFPAY ==
[2019-09-12 14:38] VITALS: BMI 21.5
[2019-10-05 12:15] VITALS: BP 138/88; PULSE 117; RESP 20; TEMP 36.8; O2SAT 97; BMI 20.8
--- NOTE | 2019-10-05 12:37 | ED.VIS.GEN ---
History of Present Illness Chief Complaint: Complaint Informant: Patient Narrative: Patient states for several weeks she has had pelvic pressure. She states that it feels like it is right at the vaginal introitus. She saw urology and was told that she did not have a prolapsed bladder. She got put on antibiotics but the culture came back negative. Frequency or dysuria. She feels like she empties the bladder appropriately. She used a mirror today and felt that she could see something prolapsing out of her vagina so she came to emergency. She has not seen a leather piece inspector for years. Past Medical History - Allergies and Home Meds Allergies/Adverse Reactions: Allergies morphine Adverse Reaction (Severe, Verified 10/05/19 12:38) Junctional rhythm lisinopril Adverse Reaction (Intermediate, Verified 10/05/19 12:38) Cough Primary Care Physician: Carmen Prather DO [STAFF PHYSICIAN] - As soon as possible Surgical History: noncontributory Smoking Status: Never smoker - Family History Maternal Family History: Family History (Last Reviewed 02/28/19 @ 13:06 by Ligia Campbell) Mother Breast cancer Myocardial infarction CAD (coronary artery disease) Diabetes Father Myocardial infarction CAD (coronary artery disease) Brother Myocardial infarction Diabetes CAD (coronary artery disease) Sister Breast cancer Hypertension Family History: Reports: No pertinent history Paternal Family History: Family History (Last Reviewed 02/28/19 @ 13:06 by Ligia Campbell) Mother Breast cancer Myocardial infarction CAD (coronary artery disease) Diabetes Father Myocardial infarction CAD (coronary artery disease) Brother Myocardial infarction Diabetes CAD (coronary artery disease) Sister Breast cancer Hypertension Family History: Reports: No pertinent history Review of Systems General: Denies: Chills, Fever, Sweats Eyes: Denies: Visual changes - bilaterally, Diplopia ENT: Denies: Rhinorrhea, Sore throat Cardiovascular: Denies: Chest pain, Palpitations Respiratory: Denies: Dyspnea, Cough, Dyspnea on exertion Gastrointestinal: Denies: Abdominal pain, Nausea, Vomiting, Diarrhea, Melena, Hematochezia Genitourinary: Reports: - - Pelvic pressure. Denies: Dysuria, Hematuria, Frequency Musculoskeletal: Denies: Back pain, Extremity Pain Skin: Denies: Rash, Wounds Neurological: Denies: Headache, Weakness, Numbness Physical Exam Vital Signs/Narrative: Vital Signs Temp Pulse Resp BP Pulse Ox 10/05/19 12:15 98.2 F 117 H 20 H 138/88 H 97 Inital Vital Signs reviewed: Yes General: Well nourished, Well developed, No Acute Distress Head: Normocephalic, Atraumatic Eyes: Perrl, EOMI ENT: Moist mucous membranes, No rhinorrhea Neck: Supple, Nontender Cardiovascular: Regular rate, Regular rhythm, No murmurs Respiratory: No distress, CTA bilaterally, Chest nontender Abdomen: Soft, Nontender, Nondistended, Normal bowel sounds : - - External genitalia appear normal. There appears to be some anterior vaginal wall weakness but I do not feel the bladder behind it. I do not see a uterine prolapse. There is no rectal pain. Back: Nontender, Normal Inspection Extremities: Nontender, No edema Skin: Normal color, No rash Neurological: Alert, Oriented x3, Cranial nerves II-XII grossly intact, Normal Strength, Normal Sensation Psychological: Normal affect, Normal Mood Diagnostic/Tx/Re-eval - Medical Decision Making Patient does not wish to have a urine specimen analyzed today. States she needs to get to her dentist appointment. Patient will be advised to follow-up either with urology or with gynecology. Advised her it is not a typical diagnosis in the emergency room to find bladder prolapse and I would leave that diagnosis to the experts in that field. Do not see evidence of acute emergency and think this is reasonable to follow-up. ED Disposition - Plan for ED Patient: Disposition: Home or Assisted Living Diagnosis: Pelvic pressure in female Instructions: ED Pelvic Pain [facility] Referrals: Carmen Prather DO [STAFF PHYSICIAN] - As soon as possible
--- NOTE | 2019-10-05 13:14 | ED.RN ---
PT DECLINES TO HAVE URINE SENT FOR A SAMPLE, STATES SHE NEEDS TO LEAVE FOR A DENTIST APPT.
== END 2019-10-05 13:15 | disposition home or self-care (01) ==
LOC: ED 12:49
PROVIDERS: Emergency Provider Emergency Medicine; PCP Family Medicine
DX: R10.2 Pelvic and perineal pain (principal); Z79.82 Long term (current) use of aspirin
CPT/HCPCS: 99282

== ENCOUNTER 2020-06-21 12:31 | Emergency (ER) | payer MEDICARE, OTHER, SELFPAY ==
[2020-04-29 13:38] VITALS: BMI 21.2
[2020-06-21 12:32] VITALS: BP 177/76; PULSE 52; RESP 16; TEMP 36.4; O2SAT 98; BMI 21.2
--- NOTE | 2020-06-21 12:57 | EX.ED.DYSGE1 ---
HPI History of Present Illness Chief Complaint: Anxiety Informant: patient Onset/Context/Timing Onset: Month(s) (worse today) Context: Gradual Onset Timing: Continuous Quality: nervous Location: all over Current Severity: Severe Maximum Severity: Severe Worsened by: nothing in particular Relieved by: nothing; hasn't tried any specific treatments today Associated Symptoms Associated Symptoms: denies physical sx Narrative Narrative: Patient states she has a history of anxiety, she was on lorazepam nightly to help her sleep along with helping this, her doctor wanted to get her off of it so she tapered off it about 5 weeks ago, which is the last time she took it. Several weeks ago she was started on buspirone which she has been taking. She states she learned that her doctor is retiring and she will need to find a new doctor, which is making her anxiety worse. Today she has been feeling more anxious still, she went out and ran some errands, and when she came back she was feeling worse to the point of possibly having a nervous breakdown so she came to the ER to see if there was some medication that could help her today. She denies any lightheadedness, palpitations, shortness of breath, GI symptoms, or any other systemic physical symptoms. She denies any suicidal ideation or thoughts. [facility] Medical History (Updated 06/21/20 @ 14:[address] Ervin Gallegos MD) Abnormal ECG Abnormal serum enzyme level Abnormal stress test Angina pectoris Atherosclerotic heart disease of [place] coronary artery without angina pectoris Bladder prolapse Chest pain Essential hypertension History of coronary artery stent placement (~09/25/13) Hypothyroidism Ischemic cardiomyopathy senior care use of drug Nonrheumatic mitral valve disorder NSTEMI (non-ST elevation myocardial infarction) Old myocardial infarction Pure hypercholesterolemia Home Medications aspirin 81 mg PO DAILY@0800 03/16/15 [History Last Taken 10/25/18] pravastatin 80 mg tablet 80 mg PO QHS #90 tab 07/20/19 [Rx Last Taken Unknown] nitroglycerin 0.4 mg sublingual tablet 0.4 mg SUBLINGUAL Q5M PRN #90 tab 09/12/19 [Rx Last Taken Unknown] omeprazole 20 mg capsule,delayed release 20 mg PO BID cap 09/12/19 [History Last Taken Unknown] levothyroxine 75 mcg tablet 75 mcg PO .COMPLEX 03/31/20 [History Last Taken Unknown] diltiazem HCl 120 mg capsule,extended release 24 hr 120 mg PO DAILY #30 cap 04/22/20 [Rx Last Taken Unknown] metoprolol tartrate 50 mg tablet 50 mg PO BID #270 tab 04/22/20 [Rx Last Taken Unknown] isosorbide mononitrate 30 mg tablet,extended release 24 hr 30 mg PO BID #180 tab 04/29/20 [Rx Last Taken Unknown] buspirone [BuSpar] 10 mg PO TID 06/21/20 [History Last Taken Unknown] hydroxyzine pamoate [Vistaril] 50 mg PO Q6H PRN #20 cap 06/21/20 [Rx Last Taken Unknown] Allergy/AdvReac Type Severity Reaction Status Date / Time morphine AdvReac Severe Junctional Verified 06/21/20 12:31 rhythm lisinopril AdvReac Intermediate Cough Verified 06/21/20 12:31 Family History Mother Breast cancer Myocardial infarction CAD (coronary artery disease) Diabetes Father Myocardial infarction CAD (coronary artery disease) Brother Myocardial infarction Diabetes CAD (coronary artery disease) Sister Breast cancer Hypertension Surgical History Presence of coronary angioplasty implant and graft (~09/25/13) Social History (Updated 05/01/20 @ 10:44 by Ligia GILES, PA) Smoking Status: Never smoker alcohol intake: never substance use type: does not use caffeine: No what type of physical activity do you participate in: walking frequency: 3-4 times per week duration: 45-60 minutes/day seatbelt use: always do you feel safe at home: Yes ROS ROS ED Constitutional Constitutional ED: Denies chills or fever(s) Eyes Eyes: Denies change in vision or diplopia ENT ENT ED: Denies rhinorrhea or sore throat Cardiovascular Cardiovascular: Denies chest pain or palpitations Respiratory/Chest Respiratory/Chest: Denies cough or dyspnea Gastrointestinal Gastrointestinal: Denies abdominal pain, diarrhea, nausea or vomiting Genitourinary Genitourinary ED: Denies dysuria or hematuria Musculoskeletal Musculoskeletal: Denies back pain or neck pain Integumentary Denies abscess or rash Neurologic Neurologic: Denies headache(s), paresthesias or weakness Psychiatric Psychiatric: Denies suicidal thoughts EXAM Physical Exam Const Vital Signs: 06/21/20 12:32 Temperature 97.6 F L Temperature Source Temporal Pulse Rate 52 L Respiratory Rate 16 Blood Pressure 177/76 H Blood Pressure Mean 109 Pulse Ox 98 Oxygen Delivery Method Room Air Positive well nourished and well developed General Appearance ED: well developed and NAD HEENT Reports moist mucous membranes normocephalic and atraumatic Eyes PERRL and EOMs intact bilaterally Neck full ROM and supple Resp normal respiratory effort and clear to auscultation bilaterally Cardio regular rate, regular rhythm and no murmurs GI non-tender and non-distended Auscultation: normoactive bowel sounds Palpation: soft Back/Spine no CVA tenderness General Back: other FROM Extremity normal to inspection General Extremety ED: Negative for edema, pulses abnormal or tenderness General Extremity: Negative for edema or pulses abnormal Neuro oriented x3, CN's II-XII intact bilaterally and no sensory deficits noted Sensorium / Orientation: awake and alert Motor Exam: strength 5/5 throughout Psych mental status grossly normal, denies hallucinations, denies homicidal ideation and denies suicidal ideation Attitude: No agitated Mood & Affect: anxious; Negative for tearful Skin no rashes or lesions noted and no wounds MDM MDM MDM Narrative Medical decision making narrative: Patient was given Vistaril 50 mg, she felt much better with observation. She is asking for prescription to use some as needed at home, which I think is fine. She was advised to continue taking her buspirone, as this may not have fully started working yet in order to prevent her from having anxiety problems. Follow-up advised, she is comfortable with that plan. Discharge Plan Triage Chief Complaint: Anxiety ED Provider: Ervin Gallegos Dx/Rx/DC Orders Clinical Impression: Anxiety Instructions: ED Anxiety Reaction Prescriptions: New hydroxyzine pamoate [Vistaril] 50 mg capsule 50 mg PO Q6H PRN (Reason: anxiety) Qty: 20 RF: 0 No Action nitroglycerin 0.4 mg tablet, sublingual 0.4 mg SUBLINGUAL Q5M PRN (Reason: Chest Pain) Qty: 90 RF: 6 isosorbide mononitrate 30 mg tablet extended release 24 hr 30 mg PO BID Qty: 180 RF: 3 omeprazole 20 mg capsule,delayed release(DR/EC) 20 mg PO BID RF: 0 aspirin 81 MG tablet,chewable 81 mg PO DAILY@0800 RF: 0 buspirone [BuSpar] 10 mg Tablet 10 mg PO TID RF: 0 pravastatin 80 mg tablet 80 mg PO QHS Qty: 90 RF: 3 levothyroxine 75 mcg tablet 75 mcg PO .COMPLEX RF: 0 metoprolol tartrate 50 mg tablet 50 mg PO BID Qty: 270 RF: 4 diltiazem HCl 120 mg capsule,extended release 24hr 120 mg PO DAILY Qty: 30 RF: 6 Primary Care Provider: Phuong Chilel Referrals: Puhong Chilel MD [Primary Care Provider] - As Needed Disposition Disposition: Home, self care
[2020-06-21] MEDS: hydrOXYzine PAM 25 MG Capsule 50 MG PO (13:39)
[2020-06-21 15:01] VITALS: BP 163/66; PULSE 52; RESP 16
== END 2020-06-21 15:10 | disposition home or self-care (01) ==
PROVIDERS: Emergency Provider Emergency Medicine; PCP Internal Medicine
DX: F41.9 Anxiety disorder, unspecified (principal); I25.10 Atherosclerotic heart disease of native coronary artery without angina pectoris; I10 Essential (primary) hypertension; I34.8 Other nonrheumatic mitral valve disorders; I25.5 Ischemic cardiomyopathy; I25.2 Old myocardial infarction; E03.9 Hypothyroidism, unspecified; E78.00 Pure hypercholesterolemia, unspecified; Z95.5 Presence of coronary angioplasty implant and graft; Z79.82 Long term (current) use of aspirin; Z79.899 Other long term (current) drug therapy
CPT/HCPCS: 99283

== ENCOUNTER 2020-06-21 16:29 | Inpatient (IN) | payer MEDICARE, OTHER, SELFPAY ==
[2020-06-21] VITALS (7 sets, daily range): BP systolic 141–152; BP diastolic 51–94; PULSE 50–62; RESP 16–18; TEMP 35.8–36.3; O2SAT 98–99; BMI 21.2; BMI 20.3; BMI 20.8
--- NOTE | 2020-06-21 18:06 | EKG12_ITS ---
Test Reason : SOB Blood Pressure : / mmHG Vent. Rate : 057 BPM Atrial Rate : 057 BPM P-R Int : 132 ms QRS Dur : 088 ms QT Int : 458 ms P-R-T Axes : 042 -54 072 degrees QTc Int : 445 ms Sinus bradycardia Left anterior fascicular block ST & T wave abnormality, consider lateral ischemia Abnormal ECG Confirmed by FREDY OWENS, JULITA ([id number]), digital editor DAVID SMITH ([id number]) on 06/24/2020 11:13:33 AM Referred By: Juan Cisneros Confirmed By:JULITA DANIEL MD
[2020-06-21 18:19] LABS: Mucous, Urine 0 SEEN /hpf (<or=2+)
[2020-06-21 18:24] LABS: Color, Urine Yellow (Yellow); Glucose, Dipstick Normal (Normal); Ketone-Dipstick 5 mg/dl (Negative); Leukocyte Esterase-Dipstick 500 /ul (Negative); Nitrite-Dipstick Negative (Negative); Occult Blood-Urine 50 /ul (Negative); Protein-Dipstick Negative (Negative); Urine Bilirubin Dipstick Negative (Negative); Urine Clarity Sl. Cloudy (Clear); Urine Urobilinogen Normal (Normal)
[2020-06-21] MEDS: Haloperidol Lactate 5 MG/ML Vial 2 MG IM (18:27)
[2020-06-21 18:30] LABS: Squamous Epithelial Cells - UA 5-10 SEEN /hpf (5-10); White Blood Cells 25-50 SEEN /hpf (0-5)
[2020-06-21 18:31] LABS: Bacteria RARE /hpf (None Seen); Red Blood Cells-Urine 0-5 SEEN /hpf (0-5); Yeast-Urine RARE /hpf (None Seen)
--- NOTE | 2020-06-21 18:31 | EDS_ITS ---
HPI History of Present Illness Chief Complaint: General Illness Informant: patient Narrative Narrative: 79-year-old female states that she is here for anxiety and sweats. She was seen here earlier today for the same was given Vistaril and felt better and went home her symptoms returned. She tells me that 3 to 4 weeks ago she was transitioned from lorazepam to buspirone. She states that she did taper as she had some withdrawal symptoms. She has not had any lorazepam for several weeks. She states that yesterday she had increasing anxiety but not to the point that it was today. She denies any other symptoms other than a feeling of anxiety sweating and feeling chilled. She states that since arriving in the emergency department she is feeling better. Patient states that she is currently being treated with UTI with Levaquin. She states she has been drinking a lot of fluids. [facility] Medical History (Updated 06/21/20 @ 19:[address] 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 Nonrheumatic mitral valve disorder NSTEMI (non-ST elevation myocardial infarction) Old myocardial infarction Pure hypercholesterolemia Home Medications aspirin 81 mg PO DAILY@0800 03/16/15 [History Last Taken 10/25/18] pravastatin 80 mg tablet 80 mg PO QHS #90 tab 07/20/19 [Rx Last Taken Unknown] nitroglycerin 0.4 mg sublingual tablet 0.4 mg SUBLINGUAL Q5M PRN #90 tab 09/12/19 [Rx Last Taken Unknown] omeprazole 20 mg capsule,delayed release 20 mg PO BID cap 09/12/19 [History Last Taken Unknown] levothyroxine 75 mcg tablet 75 mcg PO .COMPLEX 03/31/20 [History Last Taken Unknown] diltiazem HCl 120 mg capsule,extended release 24 hr 120 mg PO DAILY #30 cap 04/22/20 [Rx Last Taken Unknown] metoprolol tartrate 50 mg tablet 50 mg PO BID #270 tab 04/22/20 [Rx Last Taken Unknown] isosorbide mononitrate 30 mg tablet,extended release 24 hr 30 mg PO BID #180 tab 03/09/21 [Rx Last Taken Unknown] buspirone [BuSpar] 10 mg PO TID 06/21/20 [History Last Taken Unknown] hydroxyzine pamoate [Vistaril] 50 mg PO Q6H PRN #20 cap 06/21/20 [Rx Last Taken Unknown] Allergy/AdvReac Type Severity Reaction Status Date / Time morphine AdvReac Severe Junctional Verified 06/21/20 12:31 rhythm lisinopril AdvReac Intermediate Cough Verified 06/21/20 12:31 Family History Mother Breast cancer Myocardial infarction CAD (coronary artery disease) Diabetes Father Myocardial infarction CAD (coronary artery disease) Brother Myocardial infarction Diabetes CAD (coronary artery disease) Sister Breast cancer Hypertension Surgical History Presence of coronary angioplasty implant and graft (~09/25/13) Social History Smoking Status: Never smoker alcohol intake: never substance use type: does not use caffeine: No what type of physical activity do you participate in: walking frequency: 3-4 times per week duration: 45-60 minutes/day seatbelt use: always do you feel safe at home: Yes ROS ROS ED Constitutional Constitutional ED: Reports chills and sweats; Denies fever(s) or weight loss Eyes Eyes: Denies change in vision or diplopia ENT ENT ED: Denies ear pain, rhinorrhea or sore throat Cardiovascular Cardiovascular: Denies chest pain, orthopnea, palpitations or racing heartbeat Respiratory/Chest Respiratory/Chest: Denies cough, dyspnea or orthopnea Gastrointestinal Gastrointestinal: Denies abdominal pain, diarrhea, nausea or vomiting Genitourinary Genitourinary ED: Denies dysuria, hematuria or urinary frequency Musculoskeletal Musculoskeletal: Denies arthralgias or myalgias Integumentary Denies abscess or rash Neurologic Neurologic: Denies headache(s) or weakness Psychiatric Psychiatric: Reports anxiety; Denies depression, suicidal ideation or suicidal thoughts Endocrine Endocrinology: Denies polydipsia, polyphagia or polyuria Allergic/Immunologic Allergic/Immunologic ED: Denies mouth swelling, tongue swelling or urticaria EXAM Physical Exam Const Vital Signs: 06/21/20 16:30 06/21/20 18:20 06/21/20 19:18 Temperature 96.4 F L Temperature Source Oral Pulse Rate 50 L 62 Respiratory Rate 16 18 Respiratory Effort Normal Respiratory Pattern Normal Blood Pressure 152/94 H 141/67 H Blood Pressure Mean 113 91 Pulse Ox 98 99 Oxygen Delivery Method Room Air Positive well nourished and well developed General Appearance ED: well developed HEENT Reports normocephalic, head/scalp atraumatic and moist mucous membranes Eyes PERRL and EOMs intact bilaterally Neck no lymphadenopathy, supple and no JVD Resp normal respiratory effort and clear to auscultation bilaterally Cardio regular rate, regular rhythm and no murmurs GI normal to inspection, nondistended, normoactive bowel sounds and non-tender Palpation: soft Back/Spine no CVA tenderness and normal ROM Extremity normal to inspection General Extremety ED: Negative for edema General Extremity: Negative for edema Neuro oriented x3 and CN's II-XII intact bilaterally Sensorium / Orientation: alert Motor Exam: strength 5/5 throughout Psych mental status grossly normal Mood & Affect: anxious; Negative for depressed or tearful Skin no rashes or lesions noted and no wounds MDM MDM MDM Narrative Medical decision making narrative: Patient has a leukocytosis of 12.6. Sodium is at 118 with a chloride of 84. Glucose 107. Urinalysis shows 25-50 white cells rare bacteria negative nitrates positive leukocyte esterase. Patient received some IV fluids. Plan is admission and water restriction. Lab Data Labs: Laboratory Results - last 24 hr 06/21/20 06/21/20 06/21/20 18:15 18:25 18:25 WBC 12.6 H RBC 4.60 Hgb 13.9 Hct 40.3 MCV 87.6 MCH 30.2 MCHC 34.5 RDW Std Deviation 39.4 RDW Coeff of [place] 12.3 Plt Count 295 MPV 8.8 Immature Gran % (Auto) 0.400 Neut % (Auto) 77.8 H Lymph % (Auto) 10.5 L [place] % (Auto) 10.5 H Eos % (Auto) 0.6 Baso % (Auto) 0.2 Absolute Neuts (auto) 9.8 H Absolute Lymphs (auto) 1.33 Nucleated RBC % 0 Sodium 118 L* Potassium 3.8 Chloride 84 L Carbon Dioxide 22.0 Anion Gap 12 BUN 13 Creatinine 0.91 Estim Creat Clear Calc 41.28 Est GFR (MDRD) Af Amer 77 Est GFR (MDRD) Non-Af 63 BUN/Creatinine Ratio 14.3 Glucose 107 H Calcium 8.5 Total Bilirubin 1.10 H AST 17 ALT 18 Alkaline Phosphatase 96 Troponin I < 0.015 Total Protein 7.2 Albumin 3.3 Globulin 3.9 Albumin/Globulin Ratio 0.8 L Urine Color Yellow Urine Clarity Sl. Cloudy Urine pH 7.0 Ur Specific [place] 1.010 Urine Protein Negative Urine Glucose (UA) Normal Urine Ketones 5 H Urine Occult Blood 50 H Urine Nitrite Negative Urine Bilirubin Negative Urine Urobilinogen Normal Ur Leukocyte Esterase 500 H Urine RBC 0-5 SEEN Urine WBC 25-50 SEEN Ur Squamous Epith Cells 5-10 SEEN Urine Bacteria RARE Urine Mucus 0 SEEN Urine Yeast RARE Radiography Diagnostic Testing: Radiology Impression Chest X-Ray 06/21/20 18:47 IMPRESSION: No acute or focal disease. Severe emphysema. Electronically Signed: Ronel Tapia MD at 19:36 EDT Tel , Service support , EKG Initial EKG: Attestation: I personally reviewed and interpreted this EKG as follows: Comments: EKG demonstrates a sinus bradycardia at a rate of 57. No ectopy noted. Discharge Plan Triage Chief Complaint: General Illness ED Provider: Eliel Goetz Dx/Rx/DC Orders Clinical Impression: Acute hyponatremia, Anxiety Prescriptions: No Action nitroglycerin 0.4 mg tablet, sublingual 0.4 mg SUBLINGUAL Q5M PRN (Reason: Chest Pain) Qty: 90 RF: 6 isosorbide mononitrate 30 mg tablet extended release 24 hr 30 mg PO BID Qty: 180 RF: 3 omeprazole 20 mg capsule,delayed release(DR/EC) 20 mg PO BID RF: 0 aspirin 81 MG tablet,chewable 81 mg PO DAILY@0800 RF: 0 buspirone [BuSpar] 10 mg Tablet 10 mg PO TID RF: 0 hydroxyzine pamoate [Vistaril] 50 mg capsule 50 mg PO Q6H PRN (Reason: anxiety) Qty: 20 RF: 0 pravastatin 80 mg tablet 80 mg PO QHS Qty: 90 RF: 3 levothyroxine 75 mcg tablet 75 mcg PO .COMPLEX RF: 0 metoprolol tartrate 50 mg tablet 50 mg PO BID Qty: 270 RF: 4 diltiazem HCl 120 mg capsule,extended release 24hr 120 mg PO DAILY Qty: 30 RF: 6 Primary Care Provider: Phuong Chilel Referrals: Phuong Chilel MD [Primary Care Provider] - Disposition Disposition: Acute Care Hospital [facility]
[2020-06-21 18:35] LABS: Absolute Lymphocyte Count 1.33 X10^3/uL (0.83-4.51); Absolute Neutrophil Count 9.8 X10^3/uL (2.0-7.7); Basophil# 0.02 X10^3/uL; Basophil% 0.2 % (0-1); Eosinophil# 0.07 X10^3/uL; Eosinophils% 0.6 % (0-5); Hematocrit 40.3 % (37-47); Hemoglobin 13.9 g/dL (12.0-15.0); Lymphocyte # 1.33 X10^3/ul (0.83-4.51); Lymphocyte % 10.5 % (19-41); Mean Corp Hgb Conc 34.5 g/dL (32-36); Mean Corpuscular Hgb 30.2 pg (27.0-32.0); Mean Corpuscular Volume 87.6 fL (81-99); Mean Platelet Vol. 8.8 fl (6.2-12.0); Monocyte# 1.33 X10^3/uL; Monocyte% 10.5 % (0-10); NRBC Flagged by Analyzer 0 % (0-5); Neutrophil # 9.84 X10^3/uL (2.7-7.7); Neutrophil % 77.8 % (47-70); Platelet Count 295 K/mm3 (150-450); RBC Distribution Width CV 12.3 % (11.6-14.6); RBC Distribution Width SD 39.4 fl (35.1-43.9); White Blood Count 12.6 K/mm3 (4.4-11.0)
--- NOTE | 2020-06-21 18:47 | RAD_ITS ---
STUDY: X-RAY CHEST REASON FOR EXAM: Female, 79 years old. dyspnea TECHNIQUE: Frontal portable view of the chest COMPARISON: 19 October 2018 FINDINGS: There is a benign calcified granuloma in the left apex. The lungs are clear and severely hyper expanded. There is no demonstrated pleural abnormality. Normal size heart. Normal mediastinum and dylan. Normal visualized pulmonary arteries. Normal visualized aortic arch and descending thoracic aorta. Normal visualized thoracic spine. Normal visualized ribs, clavicles, and shoulders. There is no demonstrated abnormality of the visualized soft tissue structures of the upper abdomen. Appearance is similar to prior. RAD/Chest 1 View (Portable) IMPRESSION: No acute or focal disease. Severe emphysema. Electronically Signed: Ronel Tapia MD at 19:36 EDT Tel , Service support ,
[2020-06-21 19:05] LABS: ALB/GLOB Ratio 0.8 RATIO (0.9-2.4); AST(SGOT) 17 U/L (15-37); Alanine Aminotransfer ALT/SGPT 18 U/L (13-56); Albumin, Serum 3.3 g/dL (3.2-5.0); Alkaline Phosphatase 96 U/L (45-117); Anion Gap 12 (5-15); BUN 13 mg/dL (7-18); BUN/Creat Ratio 14.3 RATIO (10-20); Calcium,Total 8.5 mg/dL (8.5-10.1); Chloride 84 mmol/L (98-107); Creatinine, Serum 0.91 mg/dL (0.55-1.02); EST Glomerular Filtration Rate 63 mL/min (>60); Est Glom Filt Rate - Afr Amer 77 mL/min (>60); Estimated Creatinine Clearance 41.28 ml/min; Globulin 3.9 g/dL (2.2-4.2); Glucose 107 mg/dL (74-106); Potassium 3.8 mmol/L (3.5-5.1); Protein, Total 7.2 g/dL (6.4-8.2); Sodium Level 118 mmol/L (136-145)
[2020-06-21] MEDS: 0.9% Normal Saline 1,000 ML 1000 ML IV (20:06)
--- NOTE | 2020-06-21 20:23 | PCM.HP.STD ---
HPI - General General Date of Admission: 06/21/20 Chief Complaint: anxiety HPI Narrative EVENS ORDOÑEZ, is a 79 F with a significant history of hypertension; CAD status post stents who presented to emergency department with anxiety that started on the day before presentation. This is patient's second visit to the emergency department for the same thing. On his first visit she was given Vistaril. She calmed down and she was sent home. However her anxiety returned. Associated with her symptoms is a cold sweats and polyuria. She is being treated for UTI. She reported because of the treatment for UTI she has been drinking so much fluids. At the emergency department patient was found to have severely low sodium level and abnormal urinalysis. Of note patient was recently tapered from lorazepam to buspirone. Reportedly she had some withdrawal with the lorazepam. 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 Nonrheumatic mitral valve disorder NSTEMI (non-ST elevation myocardial infarction) Old myocardial infarction Pure hypercholesterolemia Home Medications aspirin 81 mg PO DAILY@0800 03/16/15 [History Last Taken 06/21/20] pravastatin 80 mg tablet 80 mg PO QHS #90 tab 07/20/19 [Rx Last Taken 06/20/20] nitroglycerin 0.4 mg sublingual tablet 0.4 mg SUBLINGUAL Q5M PRN #90 tab 09/12/19 [Rx Last Taken Unknown] omeprazole 20 mg capsule,delayed release 20 mg PO BID cap 09/12/19 [History Last Taken 06/21/20] levothyroxine 75 mcg tablet 75 mcg PO .COMPLEX 03/31/20 [History Last Taken 06/21/20] diltiazem HCl 120 mg capsule,extended release 24 hr 120 mg PO DAILY #30 cap 04/22/20 [Rx Last Taken 06/21/20] metoprolol tartrate 50 mg tablet 50 mg PO BID #270 tab 04/22/20 [Rx Last Taken 06/21/20] isosorbide mononitrate 30 mg tablet,extended release 24 hr 30 mg PO BID #180 tab 04/29/20 [Rx Last Taken 06/21/20] buspirone [BuSpar] 10 mg PO TID 06/21/20 [History Last Taken 06/21/20] hydroxyzine pamoate [Vistaril] 50 mg PO Q6H PRN #20 cap 06/21/20 [Rx Last Taken Unknown] Allergy/AdvReac Type Severity Reaction Status Date / Time morphine AdvReac Severe Junctional Verified 06/21/20 12:31 rhythm lisinopril AdvReac Intermediate Cough Verified 06/21/20 12:31 Family History Mother Breast cancer Myocardial infarction CAD (coronary artery disease) Diabetes Father Myocardial infarction CAD (coronary artery disease) Brother Myocardial infarction Diabetes CAD (coronary artery disease) Sister Breast cancer Hypertension Surgical History Presence of coronary angioplasty implant and graft (~09/25/13) Social History Smoking Status: Never smoker alcohol intake: never substance use type: does not use caffeine: No what type of physical activity do you participate in: walking frequency: 3-4 times per week duration: 45-60 minutes/day seatbelt use: always do you feel safe at home: Yes ROS Review of Systems ROS Unobtainable: Denies due to encephalopathy or due to endotracheal tube Constitutional Constitutional: Denies anorexia or change in weight Eyes Eyes: Denies blurry vision or change in eye color ENT HEENT: Denies abnormal hearing or dysphagia Cardiovascular Cardiovascular: Denies chest pain, claudication or dyspnea on exertion Respiratory/Chest Respiratory/Chest: Denies cough, dyspnea or excessive phlegm production Gastrointestinal Gastrointestinal: Denies abdominal pain, coffee ground emesis or constipation Musculoskeletal Musculoskeletal: Denies arthralgias or back pain Neurologic Neurologic: Denies abnormal gait or abnormal speech Psychiatric Psychiatric: Reports anxiety Vital Signs Vital Signs Vital Signs: 06/21/20 16:30 06/21/20 18:20 06/21/20 19:18 Temperature 96.4 F L Temperature Source Oral Pulse Rate 50 L 62 Respiratory Rate 16 18 Respiratory Effort Normal Respiratory Pattern Normal Blood Pressure 152/94 H 141/67 H Blood Pressure Mean 113 91 Pulse Ox 98 99 Oxygen Delivery Method Room Air Physical Exam Const alert and oriented x3 HEENT normocephalic and head/scalp atraumatic Eyes PERRL and EOMs intact bilaterally Neck no lymphadenopathy and supple Resp normal respiratory effort and no retractions Cardio regular rate, regular rhythm, S1 normal heart sound and S2 normal heart sound GI normal to inspection, nondistended, normoactive bowel sounds Extremity normal to inspection Skin no rashes or lesions noted and no wounds Neuro CN's II-XII intact bilaterally Psych Mood & Affect: anxious Lab / Micro Data Result Diagrams: 06/21/20 18:25 06/21/20 18:25 Labs: Laboratory Results - last 24 hr 06/21/20 06/21/20 06/21/20 18:15 18:25 18:25 WBC 12.6 H RBC 4.60 Hgb 13.9 Hct 40.3 MCV 87.6 MCH 30.2 MCHC 34.5 RDW Std Deviation 39.4 RDW Coeff of [place] 12.3 Plt Count 295 MPV 8.8 Immature Gran % (Auto) 0.400 Neut % (Auto) 77.8 H Lymph % (Auto) 10.5 L [place] % (Auto) 10.5 H Eos % (Auto) 0.6 Baso % (Auto) 0.2 Absolute Neuts (auto) 9.8 H Absolute Lymphs (auto) 1.33 Nucleated RBC % 0 Sodium 118 L* Potassium 3.8 Chloride 84 L Carbon Dioxide 22.0 Anion Gap 12 BUN 13 Creatinine 0.91 Estim Creat Clear Calc 41.28 Est GFR (MDRD) Af Amer 77 Est GFR (MDRD) Non-Af 63 BUN/Creatinine Ratio 14.3 Glucose 107 H Calcium 8.5 Total Bilirubin 1.10 H AST 17 ALT 18 Alkaline Phosphatase 96 Troponin I < 0.015 Total Protein 7.2 Albumin 3.3 Globulin 3.9 Albumin/Globulin Ratio 0.8 L Urine Color Yellow Urine Clarity Sl. Cloudy Urine pH 7.0 Ur Specific [place] 1.010 Urine Protein Negative Urine Glucose (UA) Normal Urine Ketones 5 H Urine Occult Blood 50 H Urine Nitrite Negative Urine Bilirubin Negative Urine Urobilinogen Normal Ur Leukocyte Esterase 500 H Urine RBC 0-5 SEEN Urine WBC 25-50 SEEN Ur Squamous Epith Cells 5-10 SEEN Urine Bacteria RARE Urine Mucus 0 SEEN Urine Yeast RARE Radiology Impression Chest X-Ray 06/21/20 18:47 IMPRESSION: No acute or focal disease. Severe emphysema. Electronically Signed: Ronel Tapia MD at 19:36 EDT Tel , Service support , Assessment & Plan Assessment/Plan (1) Acute hyponatremia: Status: Acute Code(s): E87.1 - Hypo-osmolality and hyponatremia Plan: Review of medical department labs showed a sodium level of 118 with a chloride of 84. Normal saline started at emergency department. Normal saline 75 mL/h ordered in patient. Sodium level every 4 hours ordered. Check TSH and cortisol level. Check serum urine osmolarity. Check urine sodium. (2) Anxiety: Status: Acute Code(s): F41.9 - Anxiety disorder, unspecified Plan: Received Ativan at emergency department Vistaril continued Buspirone continued (3) Cystitis: Status: Acute Code(s): N30.90 - Cystitis, unspecified without hematuria Plan: Levaquin p.o. continued (4) Essential hypertension: Status: Chronic Code(s): I10 - Essential (primary) hypertension Plan: Blood pressure is stable. Cardizem; isosorbide; metoprolol continued. Trend blood pressures and adjust blood pressure medications as necessary. (5) History of coronary artery stent placement: Status: Chronic Code(s): Z95.5 - Presence of coronary angioplasty implant and graft Plan: Stable. ASA, Imdur and pravastatin continued. Visit Charges Inpatient E&M: 79103 Init Hosp L3
[2020-06-21 20:54] LABS: Urine Sodium 39 mmol/L (Not Establ.)
[2020-06-21] MEDS: busPIRone 5 MG Tablet 10 MG PO (21:31)
[2020-06-21] MEDS: Isosorbide Mononitrate 30 MG Tablet PO (21:31)
[2020-06-21] MEDS: 0.9% Normal Saline 1,000 ML 75 ML IV (21:33)
[2020-06-21] MEDS: Pravastatin 80 MG Tablet PO (21:33)
[2020-06-21 21:41] LABS: Osmolality, Urine 162 mOsm/KG
[2020-06-21 21:42] LABS: Osmolality, Serum 263 mOsm/KG (280-301)
[2020-06-21] MEDS: MELATONIN 3 MG TABLET PO (21:45)
[2020-06-21] MEDS: DiphenhydrAMINE 25 MG Capsule PO (22:42)
[2020-06-22] VITALS (7 sets, daily range): BP systolic 106–156; BP diastolic 38–56; PULSE 49–60; RESP 12–18; TEMP 36.4–36.6; O2SAT 93–99
[2020-06-22 02:44] LABS: Sodium Level 129 mmol/L (136-145)
[2020-06-22 06:16] LABS: Absolute Lymphocyte Count 1.26 X10^3/uL (0.83-4.51); Absolute Neutrophil Count 5.1 X10^3/uL (2.0-7.7); Basophil# 0.01 X10^3/uL; Basophil% 0.1 % (0-1); Eosinophil# 0.08 X10^3/uL; Lymphocyte # 1.26 X10^3/ul (0.83-4.51); Lymphocyte % 16.4 % (19-41); Mean Corp Hgb Conc 34.3 g/dL (32-36); Mean Corpuscular Hgb 30.2 pg (27.0-32.0); Mean Corpuscular Volume 87.9 fL (81-99); Monocyte# 1.26 X10^3/uL; Monocyte% 16.4 % (0-10); NRBC Flagged by Analyzer 0 % (0-5); Neutrophil # 5.05 X10^3/uL (2.7-7.7); Neutrophil % 65.7 % (47-70); Platelet Count 251 K/mm3 (150-450); RBC Distribution Width CV 12.6 % (11.6-14.6); RBC Distribution Width SD 40.4 fl (35.1-43.9); Red Blood Count 3.98 M/mm3 (4.2-5.4); White Blood Count 7.7 K/mm3 (4.4-11.0)
[2020-06-22] MEDS: busPIRone 5 MG Tablet 10 MG PO ×2 (06:32→14:15)
[2020-06-22 07:29] LABS: Anion Gap 8 (5-15); BUN 10 mg/dL (7-18); BUN/Creat Ratio 14.5 RATIO (10-20); Calcium,Total 8.1 mg/dL (8.5-10.1); Chloride 103 mmol/L (98-107); Creatinine, Serum 0.69 mg/dL (0.55-1.02); EST Glomerular Filtration Rate 87 mL/min (>60); Est Glom Filt Rate - Afr Amer 105 mL/min (>60); Estimated Creatinine Clearance 37.74 ml/min; Glucose 94 mg/dL (74-106); Potassium 3.8 mmol/L (3.5-5.1); Sodium Level 132 mmol/L (136-145)
[2020-06-22] MEDS: Aspirin 81 MG TAB.CHEW PO (08:37)
[2020-06-22 09:11] LABS: Free T3 1.1 pg/mL (2.18-3.98)
[2020-06-22] MEDS: Enoxaparin 40 MG/0.4 ML Syringe SC (10:22)
[2020-06-22] MEDS: Pantoprazole Sodium 20 MG Tablet PO (10:22)
[2020-06-22] MEDS: Isosorbide Mononitrate 30 MG Tablet PO (10:23)
[2020-06-22 10:39] LABS: Sodium Level 132 mmol/L (136-145)
[2020-06-22] MEDS: 0.9% Saline Lock 10 ML Syringe IV (14:24)
--- NOTE | 2020-06-22 14:39 | DCINST_ITS ---
Discharge Instructions Outpatient Procedure Reason For Visit: HYPONATREMIA Diet Discharge Diet: No restrictions Activity Discharge Activity: Return to Normal Activity Follow Up Care Please Follow Up With: Primary care provider When: Within the next two weeks. Test Results: Test results from this visit will be discussed in further detail a t your follow-up appointment, if applicable. Discharge Plan Admission Admit Date/Time: 06/21/20 20:22 Primary Reason for Your Visit: Anxiety and hyponatremia Attending Provider: Omkar Ocampo Primary Care Provider: Phuong Chilel Instructions Patient Instructions: ED Hyponatremia Discharge Orders/Prescriptions Prescriptions: Continued nitroglycerin 0.4 mg tablet, sublingual 0.4 mg SUBLINGUAL Q5M PRN (Reason: Chest Pain) Qty: 90 RF: 6 isosorbide mononitrate 30 mg tablet extended release 24 hr 30 mg PO BID Qty: 180 RF: 3 omeprazole 20 mg capsule,delayed release(DR/EC) 20 mg PO BID RF: 0 aspirin 81 MG tablet,chewable 81 mg PO DAILY@0800 RF: 0 buspirone 10 mg Tablet 10 mg PO TID RF: 0 hydroxyzine pamoate [Vistaril] 50 mg capsule 50 mg PO Q6H PRN (Reason: anxiety) Qty: 20 RF: 0 pravastatin 80 mg tablet 80 mg PO QHS Qty: 90 RF: 3 levothyroxine 75 mcg tablet 75 mcg PO .COMPLEX RF: 0 metoprolol tartrate 50 mg tablet 50 mg PO BID Qty: 270 RF: 4 diltiazem HCl 120 mg capsule,extended release 24hr 120 mg PO DAILY Qty: 30 RF: 6 Referrals: Phuong Chilel MD [Primary Care Provider] - Disposition Patient Disposition: Home, self care
--- NOTE | 2020-06-22 14:45 | PCM.DC.SUM ---
Documented by User: Von GILES 06/22/20 15:20 Providers Date of Admission: 06/21/20 Primary Care Physician: Dr. Phuong Chilel MD Reason For Visit: HYPONATREMIA Diagnosis Discharge Diagnosis (1) Acute hyponatremia: Status: Acute Code(s): E87.1 - Hypo-osmolality and hyponatremia (2) Anxiety: Status: Inactive Code(s): F41.9 - Anxiety disorder, unspecified (3) Cystitis: Status: Acute Code(s): N30.90 - Cystitis, unspecified without hematuria (4) Essential hypertension: Status: Chronic Code(s): I10 - Essential (primary) hypertension (5) History of coronary artery stent placement: Status: Chronic Code(s): Z95.5 - Presence of coronary angioplasty implant and graft Medications at Discharge Home Medications aspirin 81 mg PO DAILY@0800 03/16/15 pravastatin 80 mg tablet 80 mg PO QHS #90 tab 07/20/19 nitroglycerin 0.4 mg sublingual tablet 0.4 mg SUBLINGUAL Q5M PRN #90 tab 09/12/19 omeprazole 20 mg capsule,delayed release 20 mg PO BID cap 09/12/19 levothyroxine 75 mcg tablet 75 mcg PO .COMPLEX 03/31/20 diltiazem HCl 120 mg capsule,extended release 24 hr 120 mg PO DAILY #30 cap 04/22/20 metoprolol tartrate 50 mg tablet 50 mg PO BID #270 tab 04/22/20 isosorbide mononitrate 30 mg tablet,extended release 24 hr 30 mg PO BID #180 tab 04/29/20 buspirone 10 mg PO TID 06/21/20 hydroxyzine pamoate [Vistaril] 50 mg PO Q6H PRN #20 cap 06/21/20 Hospital Course Summary of Care Provided Minutes Spent on Discharge: 35 Hospital Course: Patient is a 79-year-old female who was admitted to the hospital on 06/21/2020 for hyponatremia, anxiety and possible UTI. Patient reports increased anxiety lately as her PCP has switched her from lorazepam to BuSpar. Patient reports some difficulty with this transition, but has been stable throughout admission. Sodium on admission was 118, subsequent BMPs have revealed the sodium to be closer to 132. Believe the sodium level at admission was falsely decreased, and that more recent readings are more accurate. Serum osmolality and TSH are within normal limits. Cortisol level still pending. 1) Hyponatremia Sodium levels throughout admission as above. TSH, T T3/T4 and serum osmolality within normal limits. Cortisol level still pending. Plan; discharge, follow-up with primary care provider within the next 2 weeks. 2) Anxiety Patient reports recently switching from lorazepam to BuSpar for her anxiety management, and having some difficulty with the switch. BuSpar continued throughout admission and patient anxiety levels have remained stable. Plan; follow-up with your primary care provider within the next 2 weeks. 3) Possible UTI CBC unremarkable. UA on admission unremarkable. Vital signs stable throughout admission, patient is afebrile. Denies dysuria or hematuria. Plan; follow-up with your primary care provider within the next 2 weeks. Patient seen by Von Vargas PA-C, under the supervision of Dr. Ocampo. Physical Exam Narrative Patient is a 79-year-old female comfortably resting in bed, alert and orient x3. Patient reports feeling better from admission and no longer feels anxious. Denies chest pain, shortness of breath, palpitations, fever, chills, N/V/D. Const alert, oriented x3 and no apparent distress HEENT normocephalic, head/scalp atraumatic and hearing grossly normal bilaterally Eyes EOMs intact bilaterally Neck no lymphadenopathy, supple and no JVD Resp normal respiratory effort and clear to auscultation bilaterally Cardio regular rate, regular rhythm, no murmurs and no rub GI normal to inspection, nondistended, normoactive bowel sounds, soft to palpation and non-tender Extremity normal to inspection Skin no rashes or lesions noted and no wounds Neuro CN's II-XII intact bilaterally Psych affect normal ABG / Lab / Microbiology Data Result Diagrams: 06/22/20 05:28 06/22/20 10:13 Laboratory: Laboratory Results - last 24 hr 06/21/20 06/21/20 06/21/20 18:15 18:25 18:25 WBC 12.6 H RBC 4.60 Hgb 13.9 Hct 40.3 MCV 87.6 MCH 30.2 MCHC 34.5 RDW Std Deviation 39.4 RDW Coeff of [place] 12.3 Plt Count 295 MPV 8.8 Immature Gran % (Auto) 0.400 Neut % (Auto) 77.8 H Lymph % (Auto) 10.5 L Yell % (Auto) 10.5 H Eos % (Auto) 0.6 Baso % (Auto) 0.2 Absolute Neuts (auto) 9.8 H Absolute Lymphs (auto) 1.33 Nucleated RBC % 0 Sodium 118 L* Potassium 3.8 Chloride 84 L Carbon Dioxide 22.0 Anion Gap 12 BUN 13 Creatinine 0.91 Estim Creat Clear Calc 41.28 Est GFR (MDRD) Af Amer 77 Est GFR (MDRD) Non-Af 63 BUN/Creatinine Ratio 14.3 Glucose 107 H Serum Osmolality Calcium 8.5 Total Bilirubin 1.10 H AST 17 ALT 18 Alkaline Phosphatase 96 Troponin I < 0.015 Total Protein 7.2 Albumin 3.3 Globulin 3.9 Albumin/Globulin Ratio 0.8 L TSH Free T4 Free T3 pg/dL Urine Color Yellow Urine Clarity Sl. Cloudy Urine pH 7.0 Ur Specific [place] 1.010 Urine Protein Negative Urine Glucose (UA) Normal Urine Ketones 5 H Urine Occult Blood 50 H Urine Nitrite Negative Urine Bilirubin Negative Urine Urobilinogen Normal Ur Leukocyte Esterase 500 H Urine RBC 0-5 SEEN Urine WBC 25-50 SEEN Ur Squamous Epith Cells 5-10 SEEN Urine Bacteria RARE Urine Mucus 0 SEEN Urine Yeast RARE Urine Osmolality Ur Random Sodium 06/21/20 06/21/20 06/22/20 20:30 21:12 01:50 WBC RBC Hgb Hct MCV MCH MCHC RDW Std Deviation RDW Coeff of [place] Plt Count MPV Immature Gran % (Auto) Neut % (Auto) Lymph % (Auto) Yell % (Auto) Eos % (Auto) Baso % (Auto) Absolute Neuts (auto) Absolute Lymphs (auto) Nucleated RBC % Sodium 129 L Potassium Chloride Carbon Dioxide Anion Gap BUN Creatinine Estim Creat Clear Calc Est GFR (MDRD) Af Amer Est GFR (MDRD) Non-Af BUN/Creatinine Ratio Glucose Serum Osmolality 263 L Calcium Total Bilirubin AST ALT Alkaline Phosphatase Troponin I Total Protein Albumin Globulin Albumin/Globulin Ratio TSH Free T4 Free T3 pg/dL Urine Color Urine Clarity Urine pH Ur Specific [place] Urine Protein Urine Glucose (UA) Urine Ketones Urine Occult Blood Urine Nitrite Urine Bilirubin Urine Urobilinogen Ur Leukocyte Esterase Urine RBC Urine WBC Ur Squamous Epith Cells Urine Bacteria Urine Mucus Urine Yeast Urine Osmolality 162 Ur Random Sodium 39 06/22/20 06/22/20 06/22/20 05:28 05:28 05:28 WBC 7.7 RBC 3.98 L Hgb 12.0 Hct 35.0 L MCV 87.9 MCH 30.2 MCHC 34.3 RDW Std Deviation 40.4 RDW Coeff of [place] 12.6 Plt Count 251 MPV 9.0 Immature Gran % (Auto) 0.400 Neut % (Auto) 65.7 Lymph % (Auto) 16.4 L Yell % (Auto) 16.4 H Eos % (Auto) 1.0 Baso % (Auto) 0.1 Absolute Neuts (auto) 5.1 Absolute Lymphs (auto) 1.26 Nucleated RBC % 0 Sodium 132 L Cancelled Potassium 3.8 Chloride 103 Carbon Dioxide 21.0 Anion Gap 8 BUN 10 Creatinine 0.69 Estim Creat Clear Calc 37.74 Est GFR (MDRD) Af Amer 105 Est GFR (MDRD) Non-Af 87 BUN/Creatinine Ratio 14.5 Glucose 94 Serum Osmolality Calcium 8.1 L Total Bilirubin AST ALT Alkaline Phosphatase Troponin I Total Protein Albumin Globulin Albumin/Globulin Ratio TSH 8.00 H Free T4 Free T3 pg/dL Urine Color Urine Clarity Urine pH Ur Specific [place] Urine Protein Urine Glucose (UA) Urine Ketones Urine Occult Blood Urine Nitrite Urine Bilirubin Urine Urobilinogen Ur Leukocyte Esterase Urine RBC Urine WBC Ur Squamous Epith Cells Urine Bacteria Urine Mucus Urine Yeast Urine Osmolality Ur Random Sodium 06/22/20 06/22/20 05:28 10:13 WBC RBC Hgb Hct MCV MCH MCHC RDW Std Deviation RDW Coeff of [place] Plt Count MPV Immature Gran % (Auto) Neut % (Auto) Lymph % (Auto) Yell % (Auto) Eos % (Auto) Baso % (Auto) Absolute Neuts (auto) Absolute Lymphs (auto) Nucleated RBC % Sodium 132 L Potassium Chloride Carbon Dioxide Anion Gap BUN Creatinine Estim Creat Clear Calc Est GFR (MDRD) Af Amer Est GFR (MDRD) Non-Af BUN/Creatinine Ratio Glucose Serum Osmolality Calcium Total Bilirubin AST ALT Alkaline Phosphatase Troponin I Total Protein Albumin Globulin Albumin/Globulin Ratio TSH Free T4 1.30 Free T3 pg/dL 1.1 L Urine Color Urine Clarity Urine pH Ur Specific [place] Urine Protein Urine Glucose (UA) Urine Ketones Urine Occult Blood Urine Nitrite Urine Bilirubin Urine Urobilinogen Ur Leukocyte Esterase Urine RBC Urine WBC Ur Squamous Epith Cells Urine Bacteria Urine Mucus Urine Yeast Urine Osmolality Ur Random Sodium Radiography Diagnostic Testing: Radiology Impression Chest X-Ray 06/21/20 18:47 IMPRESSION: No acute or focal disease. Severe emphysema. Electronically Signed: Ronel Tapia MD at 19:36 EDT Tel , Service support , D/C Instructions Discharge Diet: No restrictions Discharge Activity: Return to Normal Activity Please Follow Up With: Primary care provider When: Within the next two weeks. Meaningful Use Info Meaningful Use Diagnoses (Choose all that apply): None applicable Discharge Plan Admission Admit Date/Time: 06/21/20 20:22 Primary Reason for Your Visit: Anxiety and hyponatremia Attending Provider: Omkar Ocampo Primary Care Provider: Phuong Chilel Instructions Patient Instructions: ED Hyponatremia Discharge Orders/Prescriptions Prescriptions: Continued nitroglycerin 0.4 mg tablet, sublingual 0.4 mg SUBLINGUAL Q5M PRN (Reason: Chest Pain) Qty: 90 RF: 6 isosorbide mononitrate 30 mg tablet extended release 24 hr 30 mg PO BID Qty: 180 RF: 3 omeprazole 20 mg capsule,delayed release(DR/EC) 20 mg PO BID RF: 0 aspirin 81 MG tablet,chewable 81 mg PO DAILY@0800 RF: 0 buspirone 10 mg Tablet 10 mg PO TID RF: 0 hydroxyzine pamoate [Vistaril] 50 mg capsule 50 mg PO Q6H PRN (Reason: anxiety) Qty: 20 RF: 0 pravastatin 80 mg tablet 80 mg PO QHS Qty: 90 RF: 3 levothyroxine 75 mcg tablet 75 mcg PO .COMPLEX RF: 0 metoprolol tartrate 50 mg tablet 50 mg PO BID Qty: 270 RF: 4 diltiazem HCl 120 mg capsule,extended release 24hr 120 mg PO DAILY Qty: 30 RF: 6 Referrals: Phuong Chilel MD [Primary Care Provider] - Disposition Patient Disposition: Home, self care Documented by User: Dr. Omkar Ocampo DO 06/22/20 15:34 Providers Date of Admission: 06/21/20 Reason For Visit: HYPONATREMIA Medications at Discharge Home Medications aspirin 81 mg PO DAILY@0800 03/16/15 pravastatin 80 mg tablet 80 mg PO QHS #90 tab 07/20/19 nitroglycerin 0.4 mg sublingual tablet 0.4 mg SUBLINGUAL Q5M PRN #90 tab 09/12/19 omeprazole 20 mg capsule,delayed release 20 mg PO BID cap 09/12/19 levothyroxine 75 mcg tablet 75 mcg PO .COMPLEX 03/31/20 diltiazem HCl 120 mg capsule,extended release 24 hr 120 mg PO DAILY #30 cap 04/22/20 metoprolol tartrate 50 mg tablet 50 mg PO BID #270 tab 04/22/20 isosorbide mononitrate 30 mg tablet,extended release 24 hr 30 mg PO BID #180 tab 04/29/20 buspirone 10 mg PO TID 06/21/20 hydroxyzine pamoate [Vistaril] 50 mg PO Q6H PRN #20 cap 06/21/20 Hospital Course Summary of Care Provided Hospital Course: Patient seen and examined independently. Data reviewed. I agree with the above note by the physician assistant food service manager. This is a 79-year-old female presents for possible anxiety. Patient had been recently changed over from lorazepam over to BuSpar. Patient taking 10 mg BuSpar 3 times daily just feels that she is not have her resolution of her anxiety. Patient had been on alprazolam 0.5 mg nightly for years and has stopped taking it for 3 weeks ago. She is concerned about withdrawal. I told her that her withdrawal symptoms would likely been in the for several days afterwards but not 3 weeks out. So do not feel that she is going through withdrawal. Patient was admitted because her sodium was 118. Patient did endorse that she was drinking a lot of fluid per subsequent sodiums were 129 132. Patient certainly did and does have hyponatremia but I am suspecting initial sodium was artificially low because it did go up considerably with little effort. Patient was on normal saline but I would not expect her sodium to go up that quickly just with normal saline. This was not hypertonic saline. So, as I stated before, I feel that the initial sodium was not accurate. Patient did have an elevated TSH however the patient's T4 was normal and patient would not need any further modification of her levothyroxine. Patient did have a cortisol level that was checked for the hyponatremia that is still pending at the time of this dictation. There is concern patient had UTI but the urinalysis did show 500 leuk esterase, however only 25-50 white blood cells and rare bacteria. I feel the patient has urinary tract infection but patient factors to follow-up with her primary care doctor she does develop symptoms consistent with UTI. Patient be discharged in stable condition. Physical Exam Const alert Eyes PERRL Resp normal respiratory effort and clear to auscultation bilaterally Cardio regular rate, regular rhythm, S1 normal heart sound and S2 normal heart sound GI normal to inspection, nondistended, normoactive bowel sounds, non-tender and non-distended ABG / Lab / Microbiology Data Result Diagrams: 06/22/20 05:28 06/22/20 10:13 Discharge Plan Admission Admit Date/Time: 06/21/20 20:22 Primary Reason for Your Visit: Anxiety and hyponatremia Attending Provider: Omkar Ocampo Primary Care Provider: Phuong Chilel Instructions Patient Instructions: ED Hyponatremia Discharge Orders/Prescriptions Prescriptions: Continued nitroglycerin 0.4 mg tablet, sublingual 0.4 mg SUBLINGUAL Q5M PRN (Reason: Chest Pain) Qty: 90 RF: 6 isosorbide mononitrate 30 mg tablet extended release 24 hr 30 mg PO BID Qty: 180 RF: 3 omeprazole 20 mg capsule,delayed release(DR/EC) 20 mg PO BID RF: 0 aspirin 81 MG tablet,chewable 81 mg PO DAILY@0800 RF: 0 buspirone 10 mg Tablet 10 mg PO TID RF: 0 hydroxyzine pamoate [Vistaril] 50 mg capsule 50 mg PO Q6H PRN (Reason: anxiety) Qty: 20 RF: 0 pravastatin 80 mg tablet 80 mg PO QHS Qty: 90 RF: 3 levothyroxine 75 mcg tablet 75 mcg PO .COMPLEX RF: 0 metoprolol tartrate 50 mg tablet 50 mg PO BID Qty: 270 RF: 4 diltiazem HCl 120 mg capsule,extended release 24hr 120 mg PO DAILY Qty: 30 RF: 6 Referrals: Phuong Chilel MD [Primary Care Provider] - Disposition Patient Disposition: Home, self care Visit Charges OBSV E&M: 10529 Observation care discharge
--- NOTE | 2020-06-23 14:40 | CASEMGMT ---
MORA PRADHAN Discharge Follow Up Phone Call: TRIPP: Maureen Strata: 3 Call Date: 06/23/20 Discharge Date: 06/22/20 Time of Call:[id number] Duration: 3 min Admitting Dx: hyponatremia MORA PRADHAN completed follow up phone call after recent hospitalization. Pt states she feels tired today. She states she recently took her vistaril. She did not have any difficulty filling the rx. She has made a video appt with for Tuesday. She denies any questions or concerns regarding her medications or dc instructions.
== END 2020-06-22 16:30 | disposition home or self-care (01) | DRG 641 ==
LOC: ED 19:57 → PCU 06-22 01:25
PROVIDERS: Admitting Provider Hospitalist; Emergency Provider Emergency Medicine; PCP Internal Medicine; Referring Provider Hospitalist
DX: E87.1 Hypo-osmolality and hyponatremia (principal); F41.9 Anxiety disorder, unspecified; N30.90 Cystitis, unspecified without hematuria; I10 Essential (primary) hypertension; I25.10 Atherosclerotic heart disease of native coronary artery without angina pectoris; I34.8 Other nonrheumatic mitral valve disorders; I25.5 Ischemic cardiomyopathy; I25.2 Old myocardial infarction; E03.9 Hypothyroidism, unspecified; E78.00 Pure hypercholesterolemia, unspecified; Z95.5 Presence of coronary angioplasty implant and graft; Z79.82 Long term (current) use of aspirin; Z79.890 Hormone replacement therapy; Z79.899 Other long term (current) drug therapy
CPT/HCPCS: 36415; 71045; 80048; 80053; 81001; 82533; 83930; 83935; 84295; 84300; 84439; 84443; 84481; 84484; 85025; 93005; 99283; 99284; J7030; A4216

== ENCOUNTER 2020-08-19 12:30 | Outpatient (RCR) | payer MEDICARE, OTHER, SELFPAY ==
[2020-04-29 13:38] VITALS: BMI 21.2
[2020-07-25 11:24] VITALS: BMI 20.9
--- NOTE | 2020-08-19 15:03 | HP.PTEVAL ---
Patient's Visit Information EVENS ORDOÑEZ is a 79 year old F referred to Physical Therapy by Dr. Ulices Wahl DO with a diagnosis of R shoulder OA, impingement. Date of Evaluation: 08/13/20 Physical Therapist: Burt Mixon DPT - Visit Plan Frequency: 2-3x /Week Duration: 4-6 Weeks Plan: *f/u with new HEP postural corrections as it relates to good gait mechanics (especially abdominal bracing without breath holding). *Add AROM tasks in 4 ft to work on progressing ROM. - Subjective Pt. is here today for her initial evaluation with diagnosis of R shoulder impingement and R shoulder OA. She saw her physician who reported she has OA in both of her shoulders and is having impingement there as well. She reports having pain that started ~4 months ago, really started after getting out and playing cards at [employer] after COVID restrictions were reduced. Increased pain: playing cards, reaching, lifting, and sleeping. Decreases pain: advil (a little bit of relief). She has not tried any exercises at this point in time. Pt. is hopeful to reduce her symptoms in order to get back to playing cards with minimal issues. She has been wearing a shoulder brace on the R side when playing cards which has been helpful. - Pain R shoulder Pain Intensity (Out of 10): 0 Pain Intensity Range: 0, 5 L shoulder Pain Intensity (Out of 10): 0 Pain Intensity Range: 0, 3 - Objective POSTURE: Pt. has slight fwrd shoulders, slight fwrd head posture. Pt. is able to correct without issues. PALPATTION: Pt. has increased tenderness at R scpaulea, R UT, R medial trap, no pain at sub acromial space. NEURO: Pt. has has normal sensation in BUEs, patient has normal DTR of biceps and triceps. ROM: AROM: L shoulder- flexion 155deg, abd 160deg, functional ER C4, functional IR L3. R shoulder- flexion 150deg, abd 150deg, functional ER C4, functional IR L4. Pt. had mild increase in symptoms with active R shoulder abd and flexion at end ranges. PROM: R shoulder- 165deg increase NW, abd 165deg increase NW, ER at 90deg. MMT; Pt. has 4/5 strength generally throughout R shoulder, 4+/5 throuhgout L shoulder. - Special Tests R Shoulder Drop Sign - IS Test: Negative R Shoulder Empty Can - SS: Negative R Shoulder Belly Press - SupScap: Negative R Shoulder Neer - Impingement: Positive R Shoulder [place] - Impingement: Positive L Shoulder Drop Sign - IS Test: Negative L Shoulder Empty Can - SS: Negative L Shoulder Belly Press - SupScap: Negative L Shoulder Neer - Impingement: Positive L Shoulder [place] - Impingement: Positive - Goals Goal 1:: LTG: Pt. to be I with HEP for B UE strengthening. Goal Time Frame: 4-6 Weeks Goal 2:: STG: pt. to get back to playing cards at [facility] without issues. Goal Time Frame: 2-4 Weeks Goal 3:: LTG: pt. to have increased BLE strength to at least 4+/5 strength throughout. Goal Time Frame: 4-6 Weeks Goal 4:: LTG: pt. to have increased AROM of R shoulder to at least 160deg of flexion, 160deg of abd, functional ER to C5 and functional IR to L3 without increase in symptoms. Goal Time Frame: 4-6 Weeks Goal 5:: STG: pt. to sleep throughout the night without increase in symptoms allowing for increased quality of life. Goal Time Frame: 2-4 Weeks Goal 6:: LTG: Pt. to complete all household work without issues or increase in symptoms;. Goal Time Frame: 4-6 Weeks - Rehabilitation Potential Physical Therapy Diagnosis: Pt. has signs and symptoms consistent with R shoulder OA and impingement. Pt. has marked hypomobility and weakness of BUEs. Pt. is having trouble with extending her arms, especially noted with playing cards. I would like her to work on strengthening her UEs in aquatic setting. Pt. consents. I did talk to her about impingement syndrome and possible RTC pathology. Pt. reports understanding. Rehabilitation Potential: Good - Anticipated Interventions Patient/Client Instruction: Educate patient on: Condition, Plan of Care, Risk Factors, Benefits of Fitness Program For the Purpose of:: To improve decision making, To facilitate caregiver knowledge, To improve self management, To prevent re-injury, To improve ability to perform tasks related to life management Therapeutic Exercise to Include: Strength training, Power training, Body mechanics, Postural training, In an aquatic setting, Passive ROM, Active ROM, Scapular Strength/Stabilization For the Purpose of:: To decrease pain, To increase ROM, To improve nutrient delivery to tissue, To increase oxygenation perfusion, To improve muscle performance and motor function, To improve ability to perform ADL's, To increase tolerance to activity/condition/position, To improve health of tissue, To decrease soft tissue restriction, To increase flexibility/ROM Thank you for the opportunity to evaluate your patient. For Medicare and Medicare HMO plans, please review the plan of care and approve it. It will need to be FAXED BACK to us at [phone] for Medicare purposes. For Medicare only, by signing this I certify the plan of care. Please let me know if there are questions or concerns regarding this plan of care. Physician Signature: Date:
== END 2020-08-19 19:00 | disposition home or self-care (01) ==
LOC: PT 12:30
PROVIDERS: PCP Internal Medicine; Referring Provider Orthopaedic Surgery; Visit Provider Orthopaedic Surgery
DX: M19.011 Primary osteoarthritis, right shoulder (principal); M75.41 Impingement syndrome of right shoulder
CPT/HCPCS: 97113; 97161

== ENCOUNTER 2021-07-02 13:04 | Emergency (ER) | payer MEDICARE, OTHER, SELFPAY ==
[2021-07-02] VITALS (8 sets, daily range): BP systolic 134–170; BP diastolic 56–79; PULSE 64–117; RESP 17–27; TEMP 37.1; O2SAT 91–98; BMI 22.2
--- NOTE | 2021-07-02 13:24 | EKG12_ITS ---
Test Reason : CHEST TIGHTNESS Blood Pressure : / mmHG Vent. Rate : 111 BPM Atrial Rate : 111 BPM P-R Int : 146 ms QRS Dur : 086 ms QT Int : 346 ms P-R-T Axes : 000 -71 083 degrees QTc Int : 470 ms Sinus tachycardia Left axis deviation Septal infarct , age undetermined ST & T wave abnormality, consider anterolateral ischemia Abnormal ECG Confirmed by FREDY OWENS, JULITA ([id number]), fan mail editor DAVID SMITH ([id number]) on 07/06/2021 1:25:13 PM Referred By: MATT Confirmed By:JULITA DANIEL MD
--- NOTE | 2021-07-02 13:25 | ED.VIS.DYS ---
HPI History of Present Illness Chief Complaint: Cough Narrative Narrative: Patient with past medical history of coronary artery disease with stents presents with shortness of breath and cough that she has had for the last 2 days. She states she feels short of breath with dyspnea on exertion and chest congestion. She has an occasional cough with green-colored phlegm production. She denies any fevers or chills. No swelling of her legs. No other symptoms. She was in the grocery store walking today when she felt more short of breath. She has had her COVID immunizations with 1 booster. [facility] Medical History Abnormal ECG Abnormal serum enzyme level Abnormal stress test Angina pectoris Atherosclerotic heart disease of [place] coronary artery without angina pectoris Bladder prolapse Chest pain Essential hypertension History of coronary artery stent placement (~09/25/13) Hypothyroidism Ischemic cardiomyopathy residential use of drug Nonrheumatic mitral valve disorder NSTEMI (non-ST elevation myocardial infarction) Old myocardial infarction Pure hypercholesterolemia Tachycardia Home Medications aspirin 81 mg PO DAILY@0800 03/16/15 [History Last Taken 06/21/20] omeprazole 20 mg capsule,delayed release 20 mg PO BID cap 09/12/19 [History Last Taken 06/21/20] isosorbide mononitrate 30 mg tablet,extended release 24 hr 30 mg PO DAILY #180 tab 07/25/20 [Rx Last Taken Unknown] pravastatin 80 mg tablet 80 mg PO QHS #90 tab 07/25/20 [Rx Last Taken Unknown] diltiazem HCl 120 mg capsule,extended release 24 hr 120 mg PO BID #180 cap 08/01/20 [Rx Last Taken Unknown] losartan 50 mg tablet 50 mg PO BID #180 tab 09/08/20 [Rx Last Taken Unknown] Handicap placard #1 ea 11/19/20 [Rx Last Taken Unknown] hydroxyzine pamoate 50 mg capsule 25 mg PO Q6H PRN cap 11/19/20 [History Last Taken Unknown] buspirone 15 mg tablet 15 mg PO DAILY tab 05/06/21 [History Last Taken Unknown] levothyroxine 75 mcg tablet 75 mcg PO DAILY tab 05/06/21 [History Last Taken Unknown] nitroglycerin 0.4 mg sublingual tablet 0.4 mg SUBLINGUAL Q5M PRN #25 tab 05/06/21 [Rx Last Taken Unknown] sertraline 50 mg tablet 50 mg PO DAILY 05/06/21 [History Last Taken Unknown] metoprolol tartrate 50 mg tablet 50 mg PO BID #180 tab 05/22/21 [Rx Last Taken Unknown] albuterol sulfate [Ventolin HFA] 1 - 2 puff INHALATION Q4H PRN PRN #1 ea 07/02/21 [Rx Last Taken Unknown] Allergy/AdvReac Type Severity Reaction Status Date / Time morphine AdvReac Severe Junctional Verified 07/02/21 13:05 rhythm lisinopril AdvReac Intermediate Cough Verified 07/02/21 13:05 Family History Mother Breast cancer Myocardial infarction CAD (coronary artery disease) Diabetes Father Myocardial infarction CAD (coronary artery disease) Brother Myocardial infarction Diabetes CAD (coronary artery disease) Sister Breast cancer Hypertension Surgical History Presence of coronary angioplasty implant and graft (~09/25/13) Social History Smoking Status: Never smoker alcohol intake: never substance use type: does not use caffeine: No what type of physical activity do you participate in: walking frequency: 3-4 times per week duration: 45-60 minutes/day seatbelt use: always do you feel safe at home: Yes ROS ROS ED ROS Narrative Constitutional: No fever, no chills. HEENT: No sore throat. No neck pain. No loss of vision. Nasal congestion with intermittent rhinorrhea. Cardiovascular: No chest pain. No palpitations. No pedal edema. Respiratory: Positive occasionally productive cough, positive shortness of breath with dyspnea on exertion. Abdominal: No abdominal pain. No nausea. No vomiting. Genitourinary: No dysuria. No hematuria. Musculoskeletal: No myalgias. No arthralgias. Neurologic: No headaches. No dizziness. No lightheadedness. Skin: No rash. No change in color. Psychiatric: No depression. No anxiety. EXAM Physical Exam Narrative Exam Narrative: Afebrile. Vital signs noted. HEENT: Normocephalic. Atraumatic. PERRL, EOMI. Neck soft and supple. No point tenderness or step off. Chin. Cardiovascular: Positive tachycardia. No murmurs, rubs, or gallops appreciated. Respiratory: Mild tachypnea. Diminished breath sounds bilateral bases with occasional expiratory wheeze. Speaking in full sentences. Gastrointestinal: Abdomen soft, nontender, with normoactive bowel sounds. No rebound or guarding. Neurological: Awake. Alert. Nonfocal, nonlateralizing. Skin: No rash. Normal color. No pallor. Musculoskeletal: No pedal edema. Full range of motion extremities. Const Vital Signs: 07/02/21 13:06 07/02/21 13:16 07/02/21 13:19 Temperature 98.8 F Temperature Source Temporal Pulse Rate 117 H 108 H Respiratory Rate 17 17 Respiratory Effort Short of Breath Respiratory Depth Normal Respiratory Pattern Tachypnea Blood Pressure 170/79 H 159/75 H Blood Pressure Mean 109 103 Pulse Ox 91 91 Oxygen Delivery Method Room Air Room Air Room Air 07/02/21 13:41 07/02/21 13:56 07/02/21 14:47 Temperature Temperature Source Pulse Rate 101 H 64 Respiratory Rate 17 27 H Respiratory Effort Respiratory Depth Respiratory Pattern Normal Blood Pressure 134/56 H Blood Pressure Mean 82 Pulse Ox 92 96 Oxygen Delivery Method Room Air Room Air 07/02/21 15:17 Temperature Temperature Source Pulse Rate Respiratory Rate Respiratory Effort Respiratory Depth Respiratory Pattern Blood Pressure Blood Pressure Mean Pulse Ox 98 Oxygen Delivery Method Room Air MDM MDM MDM Narrative Medical decision making narrative: Comprehensive work-up was pursued. Pulse ox is 91% on room air. Her EKG demonstrates sinus tachycardia 111 bpm without ectopy or acute ST changes. No STEMI. After DuoNeb aerosolized treatment, pulse ox is 95 to 96% on room air. CBC shows normal white count of 10.4 with hemoglobin normal at 14.0, hematocrit 43.4. Platelet count normal at 306. Electrolyte panel is grossly unremarkable except for creatinine of 1.07. Lactic acid is normal at 1.8. LFTs are normal. High-sensitivity troponin negative at 6. Her BNP is only slightly elevated at 167. Chest x-ray in 1 view interpreted by myself shows no acute process, no pneumonia. Radiology confirms this. They note lung scarring. Her respiratory swabs for COVID and influenza are negative. She will be ambulated in the emergency department. Per RN, she has acrylic nails so her nail turkmen cannot be removed and that the 91% on room air may have been a false reading. She ambulated and her pulse oxygenation was 96 to 98% on room air. I do not feel antibiotics are indicated currently. She will be given a prescription for an albuterol inhaler and will take [id number] cold medications as needed. She will follow-up with her primary care physician. Return instructions to the emergency department were reviewed. Disposition is discharged home in stable condition. Lab Data Attestation: I reviewed the patient's lab results. Labs: Laboratory Results - last 24 hr 07/02/21 07/02/21 07/02/21 13:40 13:40 13:40 WBC 10.4 RBC 4.82 Hgb 14.0 Hct 43.4 MCV 90.0 MCH 29.0 MCHC 32.3 RDW Std Deviation 44.1 H RDW Coeff of [place] 13.5 Plt Count 306 MPV 9.2 Immature Gran % (Auto) 0.200 Neut % (Auto) 70.7 H Lymph % (Auto) 12.5 L [place] % (Auto) 12.5 H Eos % (Auto) 3.6 Baso % (Auto) 0.5 Absolute Neuts (auto) 7.3 Absolute Lymphs (auto) 1.29 Nucleated RBC % 0 Sodium 138 Potassium 3.8 Chloride 105 Carbon Dioxide 27.0 Anion Gap 6 BUN 17 Creatinine 1.07 H Estim Creat Clear Calc 33.17 Est GFR (MDRD) Af Amer 63 Est GFR (MDRD) Non-Af 52 L BUN/Creatinine Ratio 15.9 Glucose 128 H Lactic Acid 1.8 Calcium 9.0 Total Bilirubin 0.30 AST 16 ALT 15 Alkaline Phosphatase 106 Troponin I High Sens 6 B-Natriuretic Peptide Total Protein 8.0 Albumin 3.7 Globulin 4.3 H Albumin/Globulin Ratio 0.9 07/02/21 13:40 WBC RBC Hgb Hct MCV MCH MCHC RDW Std Deviation RDW Coeff of [place] Plt Count MPV Immature Gran % (Auto) Neut % (Auto) Lymph % (Auto) [place] % (Auto) Eos % (Auto) Baso % (Auto) Absolute Neuts (auto) Absolute Lymphs (auto) Nucleated RBC % Sodium Potassium Chloride Carbon Dioxide Anion Gap BUN Creatinine Estim Creat Clear Calc Est GFR (MDRD) Af Amer Est GFR (MDRD) Non-Af BUN/Creatinine Ratio Glucose Lactic Acid Calcium Total Bilirubin AST ALT Alkaline Phosphatase Troponin I High Sens B-Natriuretic Peptide 167.5 H Total Protein Albumin Globulin Albumin/Globulin Ratio Radiography Diagnostic Testing: Clinical Impression(s) from Imaging Studies Chest X-Ray 07/02/21 13:54 IMPRESSION: Hyperinflation. Stable mild linear scarring at the lung bases. Electronically Signed: Mele Houston MD at 14:14 EDT , Discharge Plan Triage Chief Complaint: Cough ED Provider: Silvestre Han Dx/Rx/DC Orders Clinical Impression: URI (upper respiratory infection), Bronchitis, Dyspnea on exertion Instructions: ED Bronchitis, No Antibiotic (Adult), ED Dyspnea, ED URI, Viral W/ Wheezing (Adult) Prescriptions: New albuterol sulfate [Ventolin HFA] 90 mcg/actuation HFA aerosol inhaler 1 - 2 puff inhalation Q4H PRN PRN (Reason: Wheezing) Qty: 1 RF: 0 No Action pravastatin 80 mg tablet 80 mg PO QHS Qty: 90 RF: 3 isosorbide mononitrate 30 mg tablet extended release 24 hr 30 mg PO DAILY Qty: 180 RF: 3 buspirone 15 mg tablet 15 mg PO DAILY RF: 0 hydroxyzine pamoate [Vistaril] 50 mg capsule 25 mg PO Q6H PRN (Reason: anxiety) RF: 0 sertraline 50 mg tablet 50 mg PO DAILY RF: 0 nitroglycerin 0.4 mg tablet, sublingual 0.4 mg SUBLINGUAL Q5M PRN (Reason: Chest Pain) Qty: 25 RF: 1 omeprazole 20 mg capsule,delayed release(DR/EC) 20 mg PO BID RF: 0 aspirin 81 MG tablet,chewable 81 mg PO DAILY@0800 RF: 0 diltiazem HCl 120 mg capsule,extended release 24hr 120 mg PO BID Qty: 180 RF: 3 losartan 50 mg tablet 50 mg PO BID Qty: 180 RF: 3 (DME) Handicap placard See Rx Instructions .Route .MEDSUPPLY Qty: 1 RF: 0 levothyroxine 75 mcg tablet 75 mcg PO DAILY RF: 0 metoprolol tartrate 50 mg tablet 50 mg PO BID Qty: 180 RF: 3 Primary Care Provider: Kenji Osei Referrals: Kenji Osei MD [Primary Care Provider] - 5-7 Days Disposition Disposition: Home, Self Care
[2021-07-02] MEDS: Ipratropium/Albuterol Sulfate 3 ML AMPUL.NEB INHALATION (13:43)
[2021-07-02 13:50] LABS: Absolute Lymphocyte Count 1.29 X10^3/uL (0.83-4.51); Absolute Neutrophil Count 7.3 X10^3/uL (2.0-7.7); Basophil# 0.05 X10^3/uL; Basophil% 0.5 % (0-1); Eosinophil# 0.37 X10^3/uL; Eosinophils% 3.6 % (0-5); Hematocrit 43.4 % (37-47); Lymphocyte # 1.29 X10^3/ul (0.83-4.51); Lymphocyte % 12.5 % (19-41); Mean Corp Hgb Conc 32.3 g/dL (32-36); Mean Platelet Vol. 9.2 fl (6.2-12.0); Monocyte# 1.29 X10^3/uL; Monocyte% 12.5 % (0-10); NRBC Flagged by Analyzer 0 % (0-5); Neutrophil # 7.33 X10^3/uL (2.7-7.7); Neutrophil % 70.7 % (47-70); Platelet Count 306 K/mm3 (150-450); RBC Distribution Width CV 13.5 % (11.6-14.6); RBC Distribution Width SD 44.1 fl (35.1-43.9); Red Blood Count 4.82 M/mm3 (4.2-5.4); White Blood Count 10.4 K/mm3 (4.4-11.0)
--- NOTE | 2021-07-02 13:54 | RAD_ITS ---
STUDY: X-RAY CHEST REASON FOR EXAM: Female, 80 years old. Shortness of Breath TECHNIQUE: Single AP portable view of the chest. COMPARISON: Comparison is made with prior study dated 06/21/2020. FINDINGS: EKG electrodes are seen. Hyperinflation. Stable mild scarring at the lung bases. Stable calcified granuloma in the left lung apex with calcification in the pleural region of both upper lobes. There is no demonstrated pleural abnormality. Normal size heart. Normal mediastinum and dylan. Normal visualized pulmonary arteries. Normal visualized aortic arch and descending thoracic aorta. There are diffuse degenerative changes of the visualized thoracic spine. Normal visualized ribs, clavicles, and shoulders. There is no demonstrated abnormality of the visualized soft tissue structures of the upper abdomen. RAD/Chest 1 View (Portable) IMPRESSION: Hyperinflation. Stable mild linear scarring at the lung bases. Electronically Signed: Mele Houston MD at 14:14 EDT ,
[2021-07-02 14:11] LABS: BNP,B-Type NATRIURETIC PEPTIDE 167.5 pg/mL (0-100)
[2021-07-02 14:12] LABS: ALB/GLOB Ratio 0.9 RATIO (0.9-2.4); AST(SGOT) 16 U/L (15-37); Alanine Aminotransfer ALT/SGPT 15 U/L (13-56); Albumin, Serum 3.7 g/dL (3.2-5.0); Alkaline Phosphatase 106 U/L (45-117); Anion Gap 6 (5-15); BUN 17 mg/dL (7-18); BUN/Creat Ratio 15.9 RATIO (10-20); Chloride 105 mmol/L (98-107); Creatinine, Serum 1.07 mg/dL (0.55-1.02); EST Glomerular Filtration Rate 52 mL/min (>60); Est Glom Filt Rate - Afr Amer 63 mL/min (>60); Estimated Creatinine Clearance 33.17 ml/min; Globulin 4.3 g/dL (2.2-4.2); Glucose 128 mg/dL (74-106); Potassium 3.8 mmol/L (3.5-5.1); Sodium Level 138 mmol/L (136-145); Troponin-I HS 6 pg/mL (3.0-54.0)
[2021-07-02 14:17] LABS: Lactic Acid 1.8 mmol/L (0.4-1.9)
== END 2021-07-02 15:35 | disposition home or self-care (01) ==
PROVIDERS: Emergency Provider Emergency Medicine; PCP Internal Medicine; Visit Provider Emergency Medicine
DX: J06.9 Acute upper respiratory infection, unspecified (principal); J40 Bronchitis, not specified as acute or chronic; I25.10 Atherosclerotic heart disease of native coronary artery without angina pectoris; I10 Essential (primary) hypertension; Z95.1 Presence of aortocoronary bypass graft; E03.9 Hypothyroidism, unspecified; I25.2 Old myocardial infarction; E78.00 Pure hypercholesterolemia, unspecified; I25.5 Ischemic cardiomyopathy; N81.10 Cystocele, unspecified; Z79.82 Long term (current) use of aspirin; Z79.899 Other long term (current) drug therapy; R06.09 Other forms of dyspnea
CPT/HCPCS: 71045; 80053; 83605; 83880; 84484; 85025; 87428; 93005; 94640; 99284; A4216

== ENCOUNTER → 2021-08-03 | Outpatient (CLI) | payer MEDICARE, OTHER, SELFPAY | END | disposition home or self-care (01) | LOC: PSN 12:01 | PROVIDERS: PCP Internal Medicine; Referring Provider Physician Assistant Medical; Visit Provider Physician Assistant Medical | DX: I49.8 Other specified cardiac arrhythmias (principal); R00.0 Tachycardia, unspecified | CPT/HCPCS: 93225; 93226 ==

== ENCOUNTER → 2021-09-07 | Outpatient (CLI) | payer MEDICARE, OTHER, SELFPAY | END | disposition home or self-care (01) | LOC: PSN 11:54 | PROVIDERS: PCP Internal Medicine; Referring Provider Physician Assistant Medical; Visit Provider Physician Assistant Medical | DX: I49.8 Other specified cardiac arrhythmias (principal) | CPT/HCPCS: 93225; 93226 ==

== ENCOUNTER → 2021-10-15 | Outpatient (CLI) | payer MEDICARE, OTHER, SELFPAY | END | disposition home or self-care (01) | LOC: LABSPEC 16:27 | PROVIDERS: PCP Internal Medicine; Referring Provider Urology; Visit Provider Urology | DX: R35.0 Frequency of micturition (principal) | CPT/HCPCS: 87086; 87088 ==

== ENCOUNTER → 2021-11-27 | Outpatient (CLI) | payer MEDICARE, OTHER, SELFPAY ==
--- NOTE | 2021-11-27 13:49 | ECHOD_ITS ---
Reason For Study: MV Disorder Procedure This was a 2D Doppler, Color Flow transthoracic echocardiogram. The exam was of adequate technical quality. Exam performed in department. Left Ventricle Normal LV size. Mild global left ventricular systolic dysfunction. The estimated ejection fraction is 45 %. Stage 1 diastolic dysfunction. Right Ventricle Normal RV size. Normal systolic function. Atria The left atrium is mildly enlarged. No doppler evidence for ASD. Mitral Valve There is no mitral annular calcification. Normal mitral valve. Moderately severe (3+) eccentric mitral valve insufficiency. Tricuspid Valve Normal tricuspid valve. Mild tricuspid valve insufficiency. Right ventricular systolic pressure estimated to be 28 mmHg. Aortic Valve Trisinus/trileaflet aortic valve. Mild focal aortic valve thickening. Mild focal aortic valve calcification. Mild (1+) aortic valve insufficiency. Pulmonic Valve The pulmonic valve is not well visualized. Trivial pulmonic valve insufficiency. Great Vessels Normal sized aortic root. Pericardium/Pleural No pericardial effusion. MMode/2D Measurements & Calculations LVIDd: 4.9 cm IVSd: 0.99 cm Ao root diam: 3.1 cm LVIDs: 3.9 cm LVPWd: 1.1 cm LA dimension: 3.8 cm RVDd: 2.4 cm FS: 19.7 % LAV(MOD-bp): 62.6 ml LVAd ap4: 30.7 cm2 SV(MOD-sp4): 45.5 ml LAV(MOD-bp) Indexed: 40.7 ml/m2 LVLd ap4: 7.6 cm LAV(MOD-sp2): 50.4 ml EDV(MOD-sp4): 101.8 ml LAV(MOD-sp4): 63.6 ml EDV(sp4-el): 105.6 ml LVAs ap4: 21.3 cm2 LVLs ap4: 6.5 cm ESV(MOD-sp4): 56.3 ml ESV(sp4-el): 59.2 ml EF(MOD-sp4): 44.7 % EF(sp4-el): 43.9 % SV(sp4-el): 46.3 ml LA A4 area: 22.4 cm2 RA A4 area: 13.8 cm2 Time Measurements MV dec time: 0.14 sec Doppler Measurements & Calculations MV E max gage: 107.3 cm/sec Lat Peak E' Gage: 10.2 cm/sec Med Peak E' Gage: 10.5 cm/sec MV A max gage: 33.5 cm/sec E/E' lat: 10.6 E/E' med: 10.2 MV E/A: 3.2 MV V2 max: 126.3 cm/sec MV P1/2t max gage: 126.3 cm/sec Ao V2 max: 130.7 cm/sec MV max P.4 mmHg MV P1/2t: 53.2 msec Ao max P.8 mmHg MV V2 mean: 52.9 cm/sec MV mean P.6 mmHg MV dec slope: 694.9 cm/sec2 MV V2 VTI: 29.4 cm MVA(P1/2t): 4.1 cm2 AI max gage: 444.6 cm/sec LV V1 max: 68.4 cm/sec PA V2 max: 56.5 cm/sec AI max P.1 mmHg LV V1 max P.9 mmHg PA V2 mean: 39.4 cm/sec AI dec slope: 407.4 cm/sec2 AI P1/2t: 319.7 msec TR max gage: 255.4 cm/sec TR max P.3 mmHg ECHO/Echo Complete Interpretation Summary Mild global left ventricular systolic dysfunction. The estimated ejection fraction is 45 %. The left atrium is mildly enlarged. Moderately severe (3+) eccentric mitral valve insufficiency. Mild tricuspid valve insufficiency. Mild focal aortic valve thickening. Mild focal aortic valve calcification. Mild (1+) aortic valve insufficiency. Trivial pulmonic valve insufficiency. Right ventricular systolic pressure estimated to be 28 mmHg. Stage 1 diastolic dysfunction. Ordering Physician: Shobha Mcmahon Referring Physician: Kenji Osei M.D. Performed By: Ren Gasca RCS
== END | disposition home or self-care (01) ==
LOC: CVS 13:46
PROVIDERS: PCP Internal Medicine; Referring Provider Nurse Practitioner Gerontology; Visit Provider Nurse Practitioner Gerontology
DX: I34.9 Nonrheumatic mitral valve disorder, unspecified (principal); Z79.899 Other long term (current) drug therapy
CPT/HCPCS: 93306

== ENCOUNTER 2022-02-09 10:17 | Emergency (ER) | payer MEDICARE, OTHER, SELFPAY ==
[2022-02-09] VITALS (8 sets, daily range): BP systolic 139–197; BP diastolic 65–76; PULSE 57–66; RESP 16–20; TEMP 36.3–37.2; O2SAT 93–98; BMI 19.8
--- NOTE | 2022-02-09 10:41 | RAD_ITS ---
STUDY: X-RAY CHEST REASON FOR EXAM: Female, 81 years old. Sob TECHNIQUE: Single AP portable view of the chest. COMPARISON: Comparison is made with prior study 07/02/2021. FINDINGS: EKG electrodes are seen. Small left pleural effusion with bibasilar atelectasis is worse at the left lung base. There is blunting of the right costophrenic angle. Hyperinflation. Normal size heart. Normal mediastinum and dylan. Normal visualized pulmonary arteries. There is atherosclerotic calcification of the aortic arch with tortuosity. Normal visualized thoracic spine. Normal visualized ribs, clavicles, and shoulders. There is no demonstrated abnormality of the visualized soft tissue structures of the upper abdomen. RAD/Chest 1 View (Portable) IMPRESSION: Small left pleural effusion with bibasilar atelectasis and/or infiltrates worse at the left lung base. Electronically Signed: Mele Houston MD at 11:35 EST ,
--- NOTE | 2022-02-09 10:44 | EKG12_ITS ---
Test Reason : CP Blood Pressure : / mmHG Vent. Rate : 065 BPM Atrial Rate : 065 BPM P-R Int : 144 ms QRS Dur : 092 ms QT Int : 456 ms P-R-T Axes : 093 -68 126 degrees QTc Int : 474 ms Sinus rhythm with occasional Premature ventricular complexes Pulmonary disease pattern Left anterior fascicular block Nonspecific ST and T wave abnormality Abnormal ECG Confirmed by BRITTANY OWENS, AYANNA ([id number]), news video editor DAVID SMITH ([id number]) on 02/10/2022 11:09:49 AM Referred By: PEG Confirmed By:AYANNA SOTO MD
[2022-02-09] MEDS: Ipratropium/Albuterol Sulfate 3 ML AMPUL.NEB INHALATION ×2 (10:50→12:53)
[2022-02-09 11:08] LABS: Absolute Lymphocyte Count 1.84 X10^3/uL (0.83-4.51); Basophil# 0.11 X10^3/uL; Basophil% 1.2 % (0-1); Eosinophil# 0.46 X10^3/uL; Eosinophils% 5.2 % (0-5); Hematocrit 42.1 % (37-47); Hemoglobin 13.6 g/dL (12.0-15.0); Lymphocyte # 1.84 X10^3/ul (0.83-4.51); Lymphocyte % 20.8 % (19-41); Mean Corp Hgb Conc 32.3 g/dL (32-36); Mean Corpuscular Hgb 29.6 pg (27.0-32.0); Mean Corpuscular Volume 91.7 fL (81-99); Mean Platelet Vol. 10.4 fl (6.2-12.0); Monocyte# 1.39 X10^3/uL; Monocyte% 15.7 % (0-10); NRBC Flagged by Analyzer 0 % (0-5); Neutrophil # 5.02 X10^3/uL (2.7-7.7); Neutrophil % 56.8 % (47-70); Platelet Count 260 K/mm3 (150-450); RBC Distribution Width CV 13.3 % (11.6-14.6); RBC Distribution Width SD 44.6 fl (35.1-43.9); Red Blood Count 4.59 M/mm3 (4.2-5.4); White Blood Count 8.9 K/mm3 (4.4-11.0)
[2022-02-09 11:15] LABS: AST(SGOT) 64 U/L (15-37); Alanine Aminotransfer ALT/SGPT 50 U/L (13-56); Albumin, Serum 3.7 g/dL (3.2-5.0); Alkaline Phosphatase 93 U/L (45-117); Anion Gap 7 (5-15); BUN 21 mg/dL (7-18); BUN/Creat Ratio 17.6 RATIO (10-20); Calcium,Total 8.4 mg/dL (8.5-10.1); Chloride 105 mmol/L (98-107); Creatinine, Serum 1.19 mg/dL (0.55-1.02); EST Glomerular Filtration Rate 46 mL/min (>60); Est Glom Filt Rate - Afr Amer 56 mL/min (>60); Globulin 3.6 g/dL (2.2-4.2); Glucose 165 mg/dL (74-106); Potassium 3.4 mmol/L (3.5-5.1); Protein, Total 7.3 g/dL (6.4-8.2); Sodium Level 138 mmol/L (136-145)
[2022-02-09 11:26] LABS: BNP,B-Type NATRIURETIC PEPTIDE 2689.6 pg/mL (0-100)
--- NOTE | 2022-02-09 11:49 | EDS_ITS ---
HPI History of Present Illness Chief Complaint: Chest Pain Narrative Narrative: Patient presents with dyspnea for the past 2 to 3 days. She does have some upper respiratory symptoms, however she does feel that she is congested from her heart this is in her own words. No fevers or chills no cough other than the scant nonproductive cough occasionally. No back pain or tearing sensation, no pleuritic component. No lower extremity edema, no calf pain. 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 Nonrheumatic mitral valve disorder NSTEMI (non-ST elevation myocardial infarction) Old myocardial infarction Pure hypercholesterolemia Tachycardia Home Medications omeprazole 20 mg capsule,delayed release 20 mg PO BID GERD 09/12/19 [History Last Taken 02/09/22] Handicap placard #1 ea 11/19/20 [Rx Last Taken Unknown] levothyroxine 75 mcg tablet 75 mcg PO DAILY thyroid 05/06/21 [History Last Taken 02/09/22] nitroglycerin 0.4 mg sublingual tablet 0.4 mg sublingual Q5M PRN Chest Pain #25 tabs 05/06/21 [Rx Last Taken 3 Days Ago ~02/06/22] sertraline 50 mg tablet 50 mg PO DAILY ANXIETY 05/06/21 [History Last Taken 02/08/22] apixaban 5 mg tablet (Eliquis) 5 mg PO BID BLOOD THINNER 02/09/22 [History Last Taken 02/08/22] aspirin 81 mg tablet,delayed release 81 mg PO DAILY HEART 02/09/22 [History Last Taken 02/08/22] doxycycline monohydrate 100 mg capsule 100 mg PO BID #14 caps 02/09/22 [Rx Last Taken Unknown] furosemide 20 mg tablet (Lasix) 20 mg PO DAILY #20 tabs 02/09/22 [Rx Last Taken Unknown] hydroxyzine HCl 50 mg tablet 50 mg PO QHS PRN Sleep 02/09/22 [History Last Taken 02/08/22] isosorbide mononitrate 120 mg tablet,extended release 24 hr 120 mg PO DAILY HEART 02/09/22 [History Last Taken 02/08/22] losartan 50 mg tablet 50 mg PO BID BP 02/09/22 [History Last Taken 02/08/22] melatonin 10 mg tablet 20 mg PO QHS SLEEP 02/09/22 [History Last Taken 02/08/22] metoprolol tartrate 50 mg tablet 50 mg PO BID HEART 02/09/22 [History Last Taken 02/08/22] pravastatin 80 mg tablet 80 mg PO QHS CHOLESTEROL 02/09/22 [History Last Taken 02/08/22] prednisone 20 mg tablet 40 mg PO DAILY #10 tabs 02/09/22 [Rx Last Taken Unknown] Allergy/AdvReac Type Severity Reaction Status Date / Time morphine AdvReac Severe Junctional Verified 02/09/22 10:23 rhythm lisinopril AdvReac Intermediate Cough Verified 02/09/22 10:23 Family History Mother Breast cancer Myocardial infarction CAD (coronary artery disease) Diabetes Father Myocardial infarction CAD (coronary artery disease) Brother Myocardial infarction Diabetes CAD (coronary artery disease) Sister Breast cancer Hypertension Surgical History Presence of coronary angioplasty implant and graft (~09/25/13) Social History Smoking Status: Never smoker alcohol intake: never substance use type: does not use caffeine: No what type of physical activity do you participate in: walking frequency: 3-4 times per week duration: 45-60 minutes/day seatbelt use: always do you feel safe at home: Yes ROS ROS ED ROS Narrative Past medical history: Reviewed, it is extensive and includes a history of atrial flutter, atrial fibrillation, mitral valve insufficiency, hypertension, CAD, CHF last the EF was 45% Medications: Reviewed Social history: Noncontributory Review of systems: All systems negative except as indicated General: No fever Eyes: No visual changes ENT: Upper airway congestion as in HPI Neck: No neck pain Cardiovascular: No chest pain Respiratory: Dyspnea as in HPI Gastrointestinal: No abdominal pain, nausea vomiting or diarrhea Genitourinary: No dysuria Musculoskeletal: Denies myalgias no difficulty with ambulation Skin: No rash Neurological: No memory loss, confusion or any focal weakness Psych: No recent behavioral changes Hematologic: No easy bleeding or easy bruising EXAM Physical Exam Narrative Exam Narrative: Physical exam General: Well nourished, Well developed, No Acute Distress Head: Normocephalic, Atraumatic Eyes: Conjunctiva not pale ENT: Moist mucous membranes. Some upper airway congestion Neck: Supple, Nontender, No lymphadenopathy Cardiovascular: Regular rate, Regular rhythm Respiratory: Bilateral end expiratory wheezing but she is speaking in full sentences. Abdomen: Soft, Nontender, Nondistended Back: Nontender, Normal Inspection. Negative for: CVA tenderness Extremities: Nontender, no significant lower extremity edema Skin: Normal color, No rash Neurological: Alert, Normal Strength, Normal Sensation Psychological: Normal affect Const Vital Signs: 02/09/22 10:19 02/09/22 10:25 02/09/22 10:55 Temperature 99 F Temperature Source Temporal Pulse Rate 66 57 L Respiratory Rate 20 H 16 Respiratory Effort Blood Pressure 197/76 H Blood Pressure Mean 116 Pulse Ox 94 95 Oxygen Delivery Method Room Air Room Air 02/09/22 10:55 02/09/22 10:55 02/09/22 11:17 Temperature 97.8 F Temperature Source Temporal Pulse Rate 57 L Respiratory Rate 16 16 Respiratory Effort Normal Blood Pressure 139/68 H Blood Pressure Mean 91 Pulse Ox 95 95 93 Oxygen Delivery Method Room Air Room Air Room Air 02/09/22 12:00 02/09/22 12:54 02/09/22 12:54 Temperature 97.4 F L Temperature Source Temporal Pulse Rate 61 64 Respiratory Rate 18 20 H Respiratory Effort Blood Pressure 148/65 H Blood Pressure Mean 92 Pulse Ox 97 94 Oxygen Delivery Method Room Air Room Air 02/09/22 13:00 Temperature 97.6 F L Temperature Source Temporal Pulse Rate 60 Respiratory Rate 16 Respiratory Effort Blood Pressure 145/69 H Blood Pressure Mean 94 Pulse Ox 98 Oxygen Delivery Method Room Air MDM MDM Lab Data Labs: Laboratory Results - last 24 hr 02/09/22 02/09/22 02/09/22 10:50 10:50 10:50 WBC 8.9 RBC 4.59 Hgb 13.6 Hct 42.1 MCV 91.7 MCH 29.6 MCHC 32.3 RDW Std Deviation 44.6 H RDW Coeff of [place] 13.3 Plt Count 260 MPV 10.4 Immature Gran % (Auto) 0.300 Neut % (Auto) 56.8 Lymph % (Auto) 20.8 [place] % (Auto) 15.7 H Eos % (Auto) 5.2 H Baso % (Auto) 1.2 H Absolute Neuts (auto) 5.0 Absolute Lymphs (auto) 1.84 Nucleated RBC % 0 Sodium 138 Potassium 3.4 L Chloride 105 Carbon Dioxide 26.0 Anion Gap 7 BUN 21 H Creatinine 1.19 H Estim Creat Clear Calc 33.60 Est GFR (MDRD) Af Amer 56 L Est GFR (MDRD) Non-Af 46 L BUN/Creatinine Ratio 17.6 Glucose 165 H Calcium 8.4 L Total Bilirubin 0.50 AST 64 H ALT 50 Alkaline Phosphatase 93 B-Natriuretic Peptide 2689.6 H Total Protein 7.3 Albumin 3.7 Globulin 3.6 Albumin/Globulin Ratio 1.0 Radiography Diagnostic Testing: Clinical Impression(s) from Imaging Studies Chest X-Ray 02/09/22 10:41 IMPRESSION: Small left pleural effusion with bibasilar atelectasis and/or infiltrates worse at the left lung base. Electronically Signed: Mele Houston MD at 11:35 EST , X-ray read by me and radiologist shows left effusion. Patient did improve with nebulizer, she has elevated natruretic peptide which may be chronic but there is an effusion. She also has signs and symptoms of an upper respiratory infection even though COVID and influenza are negative she may have other respiratory viruses. At this time she appears well, she is not desaturating I believe she can be discharged with symptomatic treatment as well as some Lasix. I did page cardiology, they have not called back yet. I talked to the hospital initially but they do not believe the patient needs admission criteria. Discharge Plan Triage Chief Complaint: Chest Pain ED Provider: Arnaud Campbell Dx/Rx/DC Orders Clinical Impression: Wheezing, Acute upper respiratory infection, CHF (congestive heart failure) Instructions: ED Bronchitis with Wheezing (Adult), Heart Failure Prescriptions: New prednisone 20 mg tablet 40 mg PO DAILY Qty: 10 0RF doxycycline monohydrate 100 mg capsule 100 mg PO BID Qty: 14 0RF furosemide [Lasix] 20 mg tablet 20 mg PO DAILY Qty: 20 0RF No Action sertraline 50 mg tablet 50 mg PO DAILY nitroglycerin 0.4 mg tablet, sublingual 0.4 mg SUBLINGUAL Q5M PRN (Reason: Chest Pain) Qty: 25 1RF omeprazole 20 mg capsule,delayed release(DR/EC) 20 mg PO BID Label Comments: STOMACH MEDICINE, ACID REFLUX hydroxyzine HCl 50 mg tablet 50 mg PO QHS PRN (Reason: Sleep) Label Comments: TAKE 1 TABLET BY MOUTH AT BEDTIME NEEDED FOR ANXIETY/INSOMNIA aspirin 81 mg Tablet,Delayed Release (Dr/Ec) 81 mg PO DAILY melatonin 10 mg Tablet 20 mg PO QHS losartan 50 mg tablet 50 mg PO BID isosorbide mononitrate 120 mg tablet extended release 24 hr 120 mg PO DAILY pravastatin 80 mg tablet 80 mg PO QHS metoprolol tartrate 50 mg tablet 50 mg PO BID Eliquis 5 mg tablet 5 mg PO BID (DME) Handicap placard See Rx Instructions .Route .MEDSUPPLY Qty: 1 0RF Rx Instructions: Lifetime levothyroxine 75 mcg tablet 75 mcg PO DAILY Primary Care Provider: Kenji Osei Referrals: Kenji Osei MD [Primary Care Provider] - 3-5 Days Disposition Disposition: Home, Self Care
--- NOTE | 2022-02-09 11:55 | NURSING ---
DR SOCO DURHAM
[2022-02-09] MEDS: Furosemide 40 MG/4 ML Vial IV (12:08)
[2022-02-09] MEDS: Albuterol Sulfate 8 gm Inhaler (60 puffs) 2 PUFF INHALATION (13:46)
== END 2022-02-09 13:48 | disposition home or self-care (01) ==
PROVIDERS: Emergency Provider Emergency Medicine; PCP Internal Medicine; Visit Provider Emergency Medicine
DX: R06.2 Wheezing (principal); I11.0 Hypertensive heart disease with heart failure; I50.9 Heart failure, unspecified; J06.9 Acute upper respiratory infection, unspecified; E78.00 Pure hypercholesterolemia, unspecified; I25.10 Atherosclerotic heart disease of native coronary artery without angina pectoris; I25.5 Ischemic cardiomyopathy; E03.9 Hypothyroidism, unspecified; Z95.5 Presence of coronary angioplasty implant and graft; Z79.82 Long term (current) use of aspirin; Z79.01 Long term (current) use of anticoagulants; Z79.899 Other long term (current) drug therapy
CPT/HCPCS: 71045; 80053; 83880; 85025; 87428; 93005; 94640; 96374; 99251; 99252; 99283; A4216; G0463; J1940

== ENCOUNTER 2022-02-12 07:36 | Emergency (ER) | payer MEDICARE, OTHER, SELFPAY ==
[2022-02-12 07:37] VITALS: BP 185/74; PULSE 62; RESP 17; TEMP 36.1; O2SAT 93; BMI 21.8
[2022-02-12 07:39] VITALS: BP 185/74; PULSE 62; RESP 17; TEMP 36.1; O2SAT 93
[2022-02-12 07:46] VITALS: O2SAT 94
--- NOTE | 2022-02-12 07:49 | EDS_ITS ---
HPI History of Present Illness Chief Complaint: Shortness of Breath Informant: patient and family Onset/Context/Timing Onset: Days (Several days) Context: sudden Timing: Continuous and Waxes and wanes Quality: Positive for Dyspnea on exertion and Wheezing; Negative for Orthopnea or PND Current Severity: Mild Maximum Severity: Moderate Worsened by: Exertion and Coughing; Not Worsened By Lying flat Relieved by: Nothing Associated Symptoms cough, rhinorrhea, sore throat and yellow sputum; Negative for post nasal drip, ear pain, fever, subjective, chills, sweats, clear sputum or white sputum Chest Pain: Positive for Intermittent and Tightness (With coughing) Narrative PE Risk Factors: Negative for Cancer, OCP + Smoking + > 35, Prior DVT or PE, Recent immobilization, Recent surgery or Recent travel Prior similar symptoms: Yes Recent Illness/Hospitalization: Yes (Patient was seen on February 09, 2022) [facility] Medical History Abnormal ECG Abnormal serum enzyme level Abnormal stress test Angina pectoris Atherosclerotic heart disease of [place] coronary artery without angina pectoris Bladder prolapse Chest pain Essential hypertension History of coronary artery stent placement (~09/25/13) Hypothyroidism Ischemic cardiomyopathy 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 use of drug Nonrheumatic mitral valve disorder NSTEMI (non-ST elevation myocardial infarction) Old myocardial infarction Pure hypercholesterolemia Tachycardia Home Medications omeprazole 20 mg capsule,delayed release 20 mg PO BID GERD 09/12/19 [History Last Taken 02/09/22] Handicap placard #1 ea 11/19/20 [Rx Last Taken Unknown] levothyroxine 75 mcg tablet 75 mcg PO DAILY thyroid 05/06/21 [History Last Taken 02/09/22] nitroglycerin 0.4 mg sublingual tablet 0.4 mg sublingual Q5M PRN Chest Pain #25 tabs 05/06/21 [Rx Last Taken 3 Days Ago ~02/06/22] sertraline 50 mg tablet 50 mg PO DAILY ANXIETY 05/06/21 [History Last Taken 02/08/22] apixaban 5 mg tablet (Eliquis) 5 mg PO BID BLOOD THINNER 02/09/22 [History Last Taken 02/08/22] aspirin 81 mg tablet,delayed release 81 mg PO DAILY HEART 02/09/22 [History Last Taken 02/08/22] doxycycline monohydrate 100 mg capsule 100 mg PO BID #14 caps 02/09/22 [Rx Last Taken Unknown] hydroxyzine HCl 50 mg tablet 50 mg PO QHS PRN Sleep 02/09/22 [History Last Taken 02/08/22] isosorbide mononitrate 120 mg tablet,extended release 24 hr 120 mg PO DAILY HEART 02/09/22 [History Last Taken 02/08/22] losartan 50 mg tablet 50 mg PO BID BP 02/09/22 [History Last Taken 02/08/22] melatonin 10 mg tablet 20 mg PO QHS SLEEP 02/09/22 [History Last Taken 02/08/22] metoprolol tartrate 50 mg tablet 50 mg PO BID HEART 02/09/22 [History Last Taken 02/08/22] pravastatin 80 mg tablet 80 mg PO QHS CHOLESTEROL 02/09/22 [History Last Taken 02/08/22] prednisone 20 mg tablet 40 mg PO DAILY #10 tabs 02/09/22 [Rx Last Taken Unknown] furosemide 40 mg tablet 40 mg PO .COMPLEX #135 tabs 02/11/22 [Rx Last Taken Unknown] Allergy/AdvReac Type Severity Reaction Status Date / Time morphine AdvReac Severe Junctional Verified 02/12/22 07:36 rhythm lisinopril AdvReac Intermediate Cough Verified 02/12/22 07:36 Family History Mother Breast cancer Myocardial infarction CAD (coronary artery disease) Diabetes Father Myocardial infarction CAD (coronary artery disease) Brother Myocardial infarction Diabetes CAD (coronary artery disease) Sister Breast cancer Hypertension Surgical History Presence of coronary angioplasty implant and graft (~09/25/13) Social History (Updated 02/12/22 @ 07:[address] Kevin Sanchez MD) household members: none Smoking Status: Never smoker alcohol intake: never substance use type: does not use caffeine: No what type of physical activity do you participate in: walking frequency: 3-4 times per week duration: 45-60 minutes/day seatbelt use: always do you feel safe at home: Yes ROS ROS ED Constitutional Constitutional ED: Denies chills, fever(s), sweats or weight loss Eyes Eyes: Denies blurry vision, change in vision or diplopia ENT ENT ED: Reports rhinorrhea and sore throat; Denies ear pain Cardiovascular Cardiovascular: Reports chest pain; Denies orthopnea, palpitations, paroxysmal nocturnal dyspnea or racing heartbeat Respiratory/Chest Respiratory/Chest: Reports cough, dyspnea, dyspnea on exertion and sputum; Denies orthopnea or paroxysmal nocturnal dyspnea Gastrointestinal Gastrointestinal: Reports diarrhea and other Details: Patient states the diarrhea has resolved. ; Denies abdominal pain, melena, nausea or vomiting Genitourinary Genitourinary ED: Denies dysuria, hematuria or urinary frequency Musculoskeletal Musculoskeletal: Denies arthralgias, back pain or myalgias Neurologic Neurologic: Denies headache(s) or paresthesias Hematologic/Lymphatic Hematologic/Lymphatic: Denies easy bleeding or easy bruising EXAM Physical Exam Const Vital Signs: 02/12/22 07:37 02/12/22 07:39 02/12/22 07:46 Temperature 96.9 F L 96.9 F L Temperature Source Temporal Temporal Pulse Rate 62 62 Respiratory Rate 17 17 Respiratory Effort Short of Breath Labored Respiratory Depth Normal Respiratory Pattern Normal Blood Pressure 185/74 H 185/74 H Blood Pressure Mean 111 111 Pulse Ox 93 93 Oxygen Delivery Method Room Air Room Air Room Air 02/12/22 08:19 Temperature Temperature Source Pulse Rate Respiratory Rate 20 H Respiratory Effort Respiratory Depth Respiratory Pattern Normal Blood Pressure Blood Pressure Mean Pulse Ox Oxygen Delivery Method Positive well nourished and well developed Constitutional Narrative: Patient does have intermittent cough. She does appear pale. General Appearance ED: well developed and NAD; Negative for pallor HEENT Reports moist mucous membranes HEENT Narrative: Head is normocephalic. Nares patent. Uvula midline. No deviation tongue with protrusion. atraumatic Eyes PERRL and EOMs intact bilaterally General Eye ED: Negative for pale conjunctiva or scleral icterus Neck no lymphadenopathy, supple, no meningeal signs and no JVD Resp normal respiratory effort and No clear to auscultation bilaterally Auscultation: rales left base and wheezes expiratory wheezes ([place] throughout) Cardio regular rate, regular rhythm, S1 normal heart sound and S2 normal heart sound Cardio Narrative: Patient has a systolic murmur grade 1-2. GI non-tender, non-distended and no masses GI Narrative: There is no palpable pulsatile mass. There is no hepatosplenomegaly. Auscultation: hypoactive bowel sounds Palpation: soft Back/Spine no CVA tenderness Extremity normal to inspection General Extremety ED: Negative for edema or tenderness General Extremity: Negative for edema Neuro oriented x3, CN's II-XII intact bilaterally and no sensory deficits noted [place] Coma Scale: document GCS findings Spontaneous Obeys Commands Oriented 15 Sensorium / Orientation: alert Psych mental status grossly normal Skin no wounds and skin turgor normal General Skin Exam: Negative for jaundice or pallor MDM MDM MDM Narrative Medical decision making narrative: Records from prior visit were reviewed. Impression at that time was upper respiratory infection. Patient states when she contacted her on awake counselor he increased her Lasix. Patient does not have objective findings for heart failure or symptoms. In light of her having a productive cough of colored sputum with expiratory wheezing suspect this is a pulmonary process and not cardiac. Of note the BNP was elevated prior visit. Plan is to obtain a chest x-ray to rule in or out pneumonia and to determine if patient pleural effusion is worse or there is evidence of heart failure. EKG to rule out cardiac ischemia. CBC to assess white count and rule out anemia since she appears pale as cause of her dyspnea. CBC was obtained to assess renal function especially since the furosemide was increased. Albuterol was ordered. Will reassess after treatment. Patient was reassessed at 0835. There is slight wheezing with forced expiration on the right. Patient is presently on prednisone. She believes she was prescribed an antibiotic. Review of records from February 09 indicates she was prescribed antibiotic. She states she was given inhaler. She was instructed to administer 2 puffs every 2-4 hours while awake for the next 2 to 3 days. The hypokalemia in all likelihood is due to the increased furosemide she was prescribed by her on awake counselor. Lab Data Attestation: I reviewed the patient's lab results. Lab results narrative: CBC, H&H and differential unremarkable. Basic metabolic panel reveals mild renal insufficiency and a potassium of 2.9. Estimated GFR is 46. Patient had mild renal insufficiency recently. Labs: Laboratory Results - last 24 hr 02/12/22 02/12/22 07:58 07:58 WBC 10.4 RBC 4.50 Hgb 13.2 Hct 39.7 MCV 88.2 MCH 29.3 MCHC 33.2 RDW Std Deviation 42.7 RDW Coeff of [place] 13.2 Plt Count 286 MPV 9.7 Immature Gran % (Auto) 0.400 Neut % (Auto) 64.4 Lymph % (Auto) 19.0 [place] % (Auto) 14.3 H Eos % (Auto) 1.4 Baso % (Auto) 0.5 Absolute Neuts (auto) 6.7 Absolute Lymphs (auto) 1.98 Nucleated RBC % 0 Sodium 137 Potassium 2.9 L Chloride 101 Carbon Dioxide 28.0 Anion Gap 8 BUN 19 H Creatinine 1.19 H Estim Creat Clear Calc 30.67 Est GFR (MDRD) Af Amer 56 L Est GFR (MDRD) Non-Af 46 L BUN/Creatinine Ratio 16.0 Glucose 105 Calcium 8.4 L Radiography Chest X-Ray - ED: 2 View (Was independently interpreted by me at 0833. There appears to be a new infiltrate right lower lobe compared to prior. There is evidence of hyperaeration. Cardiac silhouette and size are unremarkable. Perihilar regions unremarkable. Osseous structures are unremarkable.) and Read by ED Physician EKG Initial EKG: Attestation: I personally reviewed and interpreted this EKG as follows: Interpretation: Sinus Bradycardia (When comparing to prior there appears to be P waves before the QRS complex and the NE interval is 144 ms. QRS durations 104 ms. QT duration is 502 ms. [place] is to the left. There is evidence of LVH with ST-T wave changes. Also is evidence of left anterior fascicular block.) Discharge Plan Triage Chief Complaint: Shortness of Breath ED Provider: Kevin Sanchez Dx/Rx/DC Orders Clinical Impression: Community acquired pneumonia of right lower lobe of lung, Essential hypertension, Acute bronchospasm, Acute hypokalemia, Renal insufficiency, Anticoagulant long-term use Instructions: ED Hypokalemia, ED Pneumonia (Adult) Prescriptions: No Action sertraline 50 mg tablet 50 mg PO DAILY nitroglycerin 0.4 mg tablet, sublingual 0.4 mg SUBLINGUAL Q5M PRN (Reason: Chest Pain) Qty: 25 1RF omeprazole 20 mg capsule,delayed release(DR/EC) 20 mg PO BID Label Comments: STOMACH MEDICINE, ACID REFLUX hydroxyzine HCl 50 mg tablet 50 mg PO QHS PRN (Reason: Sleep) Label Comments: TAKE 1 TABLET BY MOUTH AT BEDTIME NEEDED FOR ANXIETY/INSOMNIA aspirin 81 mg Tablet,Delayed Release (Dr/Ec) 81 mg PO DAILY melatonin 10 mg Tablet 20 mg PO QHS losartan 50 mg tablet 50 mg PO BID isosorbide mononitrate 120 mg tablet extended release 24 hr 120 mg PO DAILY pravastatin 80 mg tablet 80 mg PO QHS metoprolol tartrate 50 mg tablet 50 mg PO BID Eliquis 5 mg tablet 5 mg PO BID prednisone 20 mg tablet 40 mg PO DAILY Qty: 10 0RF doxycycline monohydrate 100 mg capsule 100 mg PO BID Qty: 14 0RF (DME) Handicap placard See Rx Instructions .Route .MEDSUPPLY Qty: 1 0RF Rx Instructions: Lifetime levothyroxine 75 mcg tablet 75 mcg PO DAILY furosemide 40 mg tablet 40 mg PO .COMPLEX Qty: 135 3RF Rx Instructions: 40 mg orally twice a day, 4 to 6 hours apart X 4 days, then take once a day. May need to increase dose PRN for CHF. Primary Care Provider: Kenji Osei Referrals: Kenji Osei MD [Primary Care Provider] - Activity Restrictions/Additional Instructions: 1. Take doxycycline until gone 2. Take prednisone until gone 3. 2 puffs of inhaler every 2-4 hours while awake for the next 2 to 3 days and every 4-6 hours as needed for shortness of breath or wheezing Disposition Disposition: Home, Self Care
--- NOTE | 2022-02-12 08:03 | EKG12_ITS ---
Test Reason : SOB Blood Pressure : / mmHG Vent. Rate : 056 BPM Atrial Rate : 000 BPM P-R Int : 000 ms QRS Dur : 098 ms QT Int : 498 ms P-R-T Axes : 000 -50 171 degrees QTc Int : 480 ms Poor data quality, interpretation may be adversely affected Junctional rhythm Left axis deviation Left ventricular hypertrophy with repolarization abnormality ( R in aVL , Sokolow-Elizabeth , [place] prod uct ) Abnormal ECG Confirmed by FREDY OWENS, JULITA ([id number]), online editor DAVID SMITH ([id number]) on 02/18/2022 8:25:52 AM Referred By: VERONICA Confirmed By:JULITA DANIEL MD
[2022-02-12 08:12] LABS: Absolute Lymphocyte Count 1.98 X10^3/uL (0.83-4.51); Absolute Neutrophil Count 6.7 X10^3/uL (2.0-7.7); Basophil# 0.05 X10^3/uL; Basophil% 0.5 % (0-1); Eosinophil# 0.15 X10^3/uL; Eosinophils% 1.4 % (0-5); Hematocrit 39.7 % (37-47); Hemoglobin 13.2 g/dL (12.0-15.0); Lymphocyte # 1.98 X10^3/ul (0.83-4.51); Mean Corp Hgb Conc 33.2 g/dL (32-36); Mean Corpuscular Hgb 29.3 pg (27.0-32.0); Mean Corpuscular Volume 88.2 fL (81-99); Mean Platelet Vol. 9.7 fl (6.2-12.0); Monocyte# 1.49 X10^3/uL; Monocyte% 14.3 % (0-10); NRBC Flagged by Analyzer 0 % (0-5); Neutrophil # 6.69 X10^3/uL (2.7-7.7); Neutrophil % 64.4 % (47-70); Platelet Count 286 K/mm3 (150-450); RBC Distribution Width CV 13.2 % (11.6-14.6); RBC Distribution Width SD 42.7 fl (35.1-43.9); White Blood Count 10.4 K/mm3 (4.4-11.0)
[2022-02-12] MEDS: Albuterol 2.5 MG/3 ML VIAL.NEB. INHALATION ×3 (08:18→08:52)
[2022-02-12 08:19] VITALS: RESP 20
[2022-02-12 08:20] LABS: Anion Gap 8 (5-15); BUN 19 mg/dL (7-18); Calcium,Total 8.4 mg/dL (8.5-10.1); Chloride 101 mmol/L (98-107); Creatinine, Serum 1.19 mg/dL (0.55-1.02); EST Glomerular Filtration Rate 46 mL/min (>60); Est Glom Filt Rate - Afr Amer 56 mL/min (>60); Estimated Creatinine Clearance 30.67 ml/min; Glucose 105 mg/dL (74-106); Potassium 2.9 mmol/L (3.5-5.1); Sodium Level 137 mmol/L (136-145)
--- NOTE | 2022-02-12 08:20 | RAD_ITS ---
STUDY: X-RAY CHEST REASON FOR EXAM: Female, 81 years old. Cough, [place], bilateral expiratory wheezing and rale TECHNIQUE: PA and lateral views of the chest. COMPARISON: Comparison is made with prior study dated 02/09/2022. FINDINGS: EKG electrodes are seen. Increased markings at the right lung base with blunting of the right costophrenic angle. This is suggestive of bibasilar atelectasis and/or infiltrate. Since prior study, there has been improved aeration of the left lung base. There is no demonstrated pleural abnormality. There is mild cardiac enlargement. Normal mediastinum and ydlan. Normal visualized pulmonary arteries. There is atherosclerotic calcification of the aortic arch with tortuosity. There are diffuse degenerative changes of the visualized thoracic spine. Normal visualized ribs, clavicles, and shoulders. There is no demonstrated abnormality of the visualized soft tissue structures of the upper abdomen. RAD/Chest PA and Lateral IMPRESSION: Right basilar atelectasis and/or infiltrate with blunting of the right costophrenic angle. Improved aeration of the left lung base. Electronically Signed: Mele Houston MD at 8:37 EST ,
[2022-02-12 08:48] VITALS: BP 137/52; PULSE 54; RESP 14; O2SAT 96
== END 2022-02-12 08:53 | disposition home or self-care (01) ==
PROVIDERS: Emergency Provider Emergency Medicine; PCP Internal Medicine; Visit Provider Emergency Medicine
DX: J18.9 Pneumonia, unspecified organism (principal); J98.01 Acute bronchospasm; I25.10 Atherosclerotic heart disease of native coronary artery without angina pectoris; E78.00 Pure hypercholesterolemia, unspecified; N28.9 Disorder of kidney and ureter, unspecified; E87.6 Hypokalemia; I10 Essential (primary) hypertension; I25.2 Old myocardial infarction; E03.9 Hypothyroidism, unspecified; Z95.5 Presence of coronary angioplasty implant and graft; Z79.01 Long term (current) use of anticoagulants; Z79.82 Long term (current) use of aspirin; Z79.899 Other long term (current) drug therapy
CPT/HCPCS: 31720; 71046; 80048; 85025; 93005; 94640; 99251; 99252; 99284; A4216; G0463

== ENCOUNTER → 2022-02-18 | Outpatient (CLI) | payer MEDICARE, OTHER, SELFPAY ==
[2022-02-18 11:07] LABS: Anion Gap 4 (5-15); BUN 19 mg/dL (7-18); BUN/Creat Ratio 17.8 RATIO (10-20); Calcium,Total 8.5 mg/dL (8.5-10.1); Chloride 98 mmol/L (98-107); Creatinine, Serum 1.07 mg/dL (0.55-1.02); EST Glomerular Filtration Rate 52 mL/min (>60); Est Glom Filt Rate - Afr Amer 63 mL/min (>60); Glucose 93 mg/dL (74-106); Potassium 3.4 mmol/L (3.5-5.1); Sodium Level 137 mmol/L (136-145)
== END | disposition home or self-care (01) ==
LOC: LAB 10:08
PROVIDERS: PCP Internal Medicine; Visit Provider Nurse Practitioner Gerontology
DX: I50.9 Heart failure, unspecified (principal); E87.1 Hypo-osmolality and hyponatremia
CPT/HCPCS: 36415; 80048

== ENCOUNTER → 2022-02-23 | Outpatient (CLI) | payer MEDICARE, OTHER, SELFPAY ==
--- NOTE | 2022-02-23 11:04 | ECHOD_ITS ---
Reason For Study: MVR Procedure This was a 2D Doppler, Color Flow transthoracic echocardiogram. Exam performed in department. Left Ventricle Normal LV size. Moderately severe global left ventricular systolic dysfunction. The estimated ejection fraction is 30 %. Stage 1 diastolic dysfunction. Anterio-Basal: Hypokinetic. Lateral-Basal: Hypokinetic. Posterior-Basal: Hypokinetic. Infero-Basal: Severely Hypokinetic. Basal inferoseptal: Hypokinetic. Basal anteroseptal: Hypokinetic. Mid-Anterior : Hypokinetic. Mid-Lateral : Hypokinetic. Mid-Posterior: Hypokinetic. Mid-Inferior: Severely Hypokinetic. Mid-inferoseptal : Hypokinetic. Mid- anteroseptal : Hypokinetic. Anterior [place] : Hypokinetic. Inferior [place] : Severely Hypokinetic. Lateral [place] : Hypokinetic. Septal [place] : Hypokinetic. Right Ventricle Normal RV size. Normal systolic function. Atria Normal left atrium. Normal right atrium. No doppler evidence for ASD. Mitral Valve There is no mitral annular calcification. Normal mitral valve. Moderate (2+) eccentric mitral valve insufficiency. Tricuspid Valve Normal tricuspid valve. Trivial tricuspid valve insufficiency. Right ventricular systolic pressure estimated to be 22 mmHg. Aortic Valve Trisinus/trileaflet aortic valve. Mild focal aortic valve thickening. Mild focal aortic valve calcification. Pulmonic Valve The pulmonic valve is not well visualized. Great Vessels Normal sized aortic root. Pericardium/Pleural Trivial pericardial effusion. There are no echocardiographic indications of cardiac tamponade. MMode/2D Measurements & Calculations LVIDd: 4.6 cm IVSd: 1.4 cm Ao root diam: 3.0 cm LVIDs: 4.0 cm LVPWd: 1.2 cm RVDd: 2.6 cm FS: 12.6 % LAV(MOD-sp4): 35.0 ml LVAd ap4: 21.2 cm2 SV(MOD-sp4): 15.0 ml LVLd ap4: 6.5 cm EDV(MOD-sp4): 57.0 ml EDV(sp4-el): 58.4 ml LVAs ap4: 17.9 cm2 LVLs ap4: 6.3 cm ESV(MOD-sp4): 42.0 ml ESV(sp4-el): 43.6 ml EF(MOD-sp4): 26.3 % EF(sp4-el): 25.4 % SV(sp4-el): 14.8 ml LA A4 area: 15.5 cm2 LA dimension(2D): 3.7 cm RA A4 area: 9.7 cm2 Doppler Measurements & Calculations MV E max gage: 84.5 cm/sec Lat Peak E' Gage: 8.4 cm/sec Med Peak E' Gage: 6.2 cm/sec E/E' lat: 10.1 E/E' med: 13.7 MV V2 max: 99.9 cm/sec Ao V2 max: 154.9 cm/sec LV V1 max: 75.1 cm/sec MV max P.1 mmHg Ao max P.6 mmHg LV V1 max P.3 mmHg MV V2 mean: 57.3 cm/sec Ao V2 mean: 105.2 cm/sec LV V1 mean P.3 mmHg MV mean P.7 mmHg Ao mean P.2 mmHg LV V1 mean: 53.0 cm/sec MV V2 VTI: 15.5 cm Ao V2 VTI: 21.5 cm LV V1 VTI: 10.7 cm AV (velocity ratio): 0.50 MR max gage: 546.3 cm/sec PA V2 max: 68.7 cm/sec TR max gage: 217.7 cm/sec MR max P.4 mmHg PA V2 mean: 52.8 cm/sec TR max P.0 mmHg ECHO/Echo Complete Interpretation Summary Moderately severe global left ventricular systolic dysfunction. The estimated ejection fraction is 30 %. Moderate (2+) eccentric mitral valve insufficiency. Trivial tricuspid valve insufficiency. Mild focal aortic valve thickening. Mild focal aortic valve calcification. Trivial pericardial effusion. There are no echocardiographic indications of cardiac tamponade. Right ventricular systolic pressure estimated to be 22 mmHg. Stage 1 diastolic dysfunction. Ordering Physician: Shobha Mcmahon Referring Physician: Kenji Osei M.D. Performed By: Grace Parikh RCS
== END | disposition home or self-care (01) ==
LOC: CVS 11:03
PROVIDERS: PCP Internal Medicine; Visit Provider Nurse Practitioner Gerontology
DX: I34.0 Nonrheumatic mitral (valve) insufficiency (principal); I25.5 Ischemic cardiomyopathy
CPT/HCPCS: 93306

== ENCOUNTER → 2022-04-12 | Outpatient (CLI) | payer MEDICARE, OTHER, SELFPAY ==
[2022-04-12 16:49] LABS: Absolute Lymphocyte Count 1.68 X10^3/uL (0.83-4.51); Absolute Neutrophil Count 5.7 X10^3/uL (2.0-7.7); Basophil# 0.07 X10^3/uL; Basophil% 0.8 % (0-1); Eosinophil# 0.22 X10^3/uL; Eosinophils% 2.4 % (0-5); Hematocrit 39.1 % (37-47); Hemoglobin 12.1 g/dL (12.0-15.0); Lymphocyte # 1.68 X10^3/ul (0.83-4.51); Lymphocyte % 18.4 % (19-41); Mean Corp Hgb Conc 30.9 g/dL (32-36); Mean Corpuscular Hgb 28.7 pg (27.0-32.0); Mean Corpuscular Volume 92.9 fL (81-99); Mean Platelet Vol. 10.4 fl (6.2-12.0); Monocyte# 1.48 X10^3/uL; Monocyte% 16.2 % (0-10); NRBC Flagged by Analyzer 0 % (0-5); Neutrophil # 5.65 X10^3/uL (2.7-7.7); Neutrophil % 61.9 % (47-70); Platelet Count 288 K/mm3 (150-450); RBC Distribution Width CV 15.4 % (11.6-14.6); Red Blood Count 4.21 M/mm3 (4.2-5.4); White Blood Count 9.1 K/mm3 (4.4-11.0)
== END | disposition home or self-care (01) ==
LOC: LAB 16:17
PROVIDERS: PCP Internal Medicine; Referring Provider Nurse Practitioner Gerontology; Visit Provider Nurse Practitioner Gerontology
DX: I25.5 Ischemic cardiomyopathy (principal)
CPT/HCPCS: 36415; 85025

== ENCOUNTER 2022-04-20 05:38 | Inpatient (IN) | payer MEDICARE, OTHER, SELFPAY ==
[2022-04-20] VITALS (27 sets, daily range): BP systolic 132–185; BP diastolic 64–115; PULSE 57–130; RESP 14–23; TEMP 36.2–36.6; O2SAT 92–99; BMI 21.3; BMI 21.4
--- NOTE | 2022-04-20 05:48 | EKG12_ITS ---
Test Reason : CARDIOVERSION/ADENOSINE Blood Pressure : / mmHG Vent. Rate : 095 BPM Atrial Rate : 095 BPM P-R Int : 166 ms QRS Dur : 084 ms QT Int : 394 ms P-R-T Axes : 000 -66 222 degrees QTc Int : 495 ms Sinus rhythm with marked sinus arrhythmia with occasional and consecutive Premature ventricular compl exes with conversion to an SVT with consideration to an atrial tachcardia or atrial flutter with 2:1 AV conduction Left axis deviation Minimal voltage criteria for LVH, may be normal variant ( Pollo product ) Septal infarct , age undetermined Marked ST abnormality, possible inferior subendocardial injury Abnormal ECG Confirmed by FREDY OWENS, JULITA ([id number]), sound editor DAVID SMITH ([id number]) on 04/22/2022 9:42:41 AM Referred By: Confirmed By:JULITA DANIEL MD
--- NOTE | 2022-04-20 05:48 | RAD_ITS ---
INDICATION: chest pain EXAMINATION/TECHNIQUE: X-RAY - XR Chest 1 View COMPARISON: None. FINDINGS: LINES/DEVICES: None. LUNGS: Subsegmental atelectases in the lung bases. MEDIASTINUM AND CARDIOVASCULAR STRUCTURES: Cardiac silhouette not enlarged. Central airways and mediastinal contour are unremarkable. BONES AND SOFT TISSUES: Unremarkable. RAD/Chest 1 View (Portable) IMPRESSION: No radiographic evidence of acute cardiopulmonary disease. Electronically Signed: Jak Medeiros MD at 6:19 EST ,
--- NOTE | 2022-04-20 05:54 | EDS_ITS ---
HPI History of Present Illness Chief Complaint: Chest Pain Informant: patient Narrative Narrative: Patient presents with chest tightness. She does state that she has been getting episodes of this recently but she cannot tell me exactly when or how frequently they are occurring. She states she will get some days where she has them more. This episode started about 430. She states it really did not wake her up. She was kind of awake because she was nervous about getting a heart cath today. But she feels tightness across the anterior chest. It does not radiate to any 1 specific area. It does not go to the back shoulders neck or abdomen. She states she might be just a little bit short of breath but not much. She has not had nausea vomiting diaphoresis or lightheadedness. Although her heart rate is fast she does not feel this. It sounds like there have been changes to meds recently including diltiazem and metoprolol. It sounds like metoprolol may have been stopped due to bradycardia just recently. She has also been on Eliquis. She did not know why but I think it is due to an intermittent episode of atrial fibrillation or flutter. She stopped this 4 days ago because of the heart cath. She has never had a DVT or PE. She is not having pleuritic pain or hemoptysis. Heart disease. She has had an echo in February that showed some wall motion abnormalities. This and her recent episodes of pain has prompted them to schedule heart cath for today. She had stents 5 or 8 years ago but she is not exactly sure when. No pacer or bypass surgery. I also looked up and reviewed outpatient records from 04/12/[address] Mata. 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 Non-rheumatic mitral regurgitation Nonrheumatic mitral valve disorder NSTEMI (non-ST elevation myocardial infarction) Old myocardial infarction Pure hypercholesterolemia Tachycardia Home Medications Handicap placard #1 ea 11/19/20 [Rx Last Taken Unknown] levothyroxine 75 mcg tablet 75 mcg PO DAILY thyroid 05/06/21 [History Last Taken 02/09/22] sertraline 50 mg tablet 50 mg PO DAILY ANXIETY 05/06/21 [History Last Taken 02/08/22] apixaban 5 mg tablet (Eliquis) 5 mg PO BID BLOOD THINNER 02/09/22 [History Last Taken 02/08/22] aspirin 81 mg tablet,delayed release 81 mg PO DAILY HEART 02/09/22 [History Last Taken 04/20/22 0430] hydroxyzine HCl 50 mg tablet 50 mg PO QHS PRN Sleep 02/09/22 [History Last Taken 02/08/22] isosorbide mononitrate 120 mg tablet,extended release 24 hr 120 mg PO DAILY HEART 02/09/22 [History Last Taken 02/08/22] losartan 50 mg tablet 50 mg PO BID BP 02/09/22 [History Last Taken 02/08/22] melatonin 10 mg tablet 20 mg PO QHS SLEEP 02/09/22 [History Last Taken 02/08/22] pravastatin 80 mg tablet 80 mg PO QHS CHOLESTEROL 02/09/22 [History Last Taken 02/08/22] nitroglycerin 0.4 mg sublingual tablet 0.4 mg sublingual Q5M PRN Chest Pain #25 tabs 02/25/22 [Rx Last Taken 04/20/22 04:30] furosemide 40 mg tablet 40 mg PO DAILY #135 tabs 02/26/22 [Rx Last Taken 04/20/22 04:30] omeprazole 20 mg capsule,delayed release 40 mg PO DAILY GERD 03/12/22 [History Last Taken 04/20/22 04:30 40] potassium chloride 20 mEq tablet,extended release 20 meq PO DAILY #90 tabs 03/19/22 [Rx Last Taken 04/20/22 04:30 20] carvedilol 12.5 mg tablet 6.25 mg PO BID 04/20/22 [History Last Taken 04/20/22 6.25] Allergy/AdvReac Type Severity Reaction Status Date / Time morphine AdvReac Severe Junctional Verified 04/12/22 15:37 rhythm lisinopril AdvReac Intermediate Cough Verified 04/12/22 15:37 Family History Mother Breast cancer Myocardial infarction CAD (coronary artery disease) Diabetes Father Myocardial infarction CAD (coronary artery disease) Brother Myocardial infarction Diabetes CAD (coronary artery disease) Sister Breast cancer Hypertension Surgical History Presence of coronary angioplasty implant and graft (~09/25/13) Social History household members: none Smoking Status: Never smoker alcohol intake: never substance use type: does not use caffeine: No what type of physical activity do you participate in: walking frequency: 3-4 times per week duration: 45-60 minutes/day seatbelt use: always do you feel safe at home: Yes ROS ROS ED Constitutional Constitutional ED: Denies sweats Eyes Eyes: Denies change in vision ENT ENT ED: Denies sore throat Cardiovascular Cardiovascular: Reports as per HPI Respiratory/Chest Respiratory/Chest: Denies cough or sputum Gastrointestinal Gastrointestinal: Denies abdominal pain, nausea or vomiting Musculoskeletal Musculoskeletal: Denies back pain or neck pain Integumentary Denies Abrasions or rash Neurologic Neurologic: Denies headache(s), paresthesias or weakness Endocrine Endocrinology: Denies polydipsia or polyuria Hematologic/Lymphatic Hematologic/Lymphatic: Reports easy bleeding, easy bruising and other Details: Patient is usually on aspirin and Eliquis but stopped Eliquis 4 days ago planned because of her heart catheterization today. Allergic/Immunologic Allergic/Immunologic ED: Denies urticaria EXAM Physical Exam Narrative Exam Narrative: Patient is awake and alert. She is sitting comfortably in bed. She is not diaphoretic. She carries on normal conversation. HEENT shows moist mucous membranes. Eyes show no pallor. Neck shows no JVD. Lungs are clear bilaterally. No pain with a deep breath. Saturations are normal at 99% on room air. Heart is regular but tachycardic at about 130. It really does not vary up or down below this. I am not seeing ventricular ectopy. I am suspicious she may have atrial flutter in the background with 2-1 block. Abdomen is soft and nontender shows no CVA or suprapubic tenderness. Extremities show no edema. She has excellent pulses in all 4 extremities. No swelling or tenderness. Neurologically she is awake alert and appropriate. Skin does not show any notable pallor. There is no diaphoresis. Const Vital Signs: 04/20/22 05:39 04/20/22 05:48 04/20/22 06:23 Temperature 97.1 F L Temperature Source Temporal Pulse Rate 130 H 116 H Respiratory Rate 19 H 19 H Blood Pressure 185/115 H 176/104 H Blood Pressure Mean 138 128 Pulse Ox 99 95 94 Oxygen Delivery Method Room Air Room Air Room Air 04/20/22 06:33 04/20/22 07:22 04/20/22 07:27 Temperature Temperature Source Pulse Rate 116 H 117 H 115 H Respiratory Rate 19 H Blood Pressure 172/101 H 168/104 H 162/99 H Blood Pressure Mean 124 Pulse Ox 95 Oxygen Delivery Method Room Air 04/20/22 07:31 04/20/22 07:37 04/20/22 07:39 Temperature Temperature Source Pulse Rate 116 H 58 L 116 H Respiratory Rate 15 Blood Pressure 146/97 H Blood Pressure Mean 113 Pulse Ox 92 Oxygen Delivery Method Room Air 04/20/22 07:44 04/20/22 07:45 04/20/22 07:47 Temperature Temperature Source Pulse Rate 58 L 117 H 57 L Respiratory Rate Blood Pressure Blood Pressure Mean Pulse Ox Oxygen Delivery Method 04/20/22 07:48 Temperature Temperature Source Pulse Rate Respiratory Rate Blood Pressure 146/97 H Blood Pressure Mean 113 Pulse Ox Oxygen Delivery Method MDM MDM MDM Narrative Medical decision making narrative: 06: 30 I went and rechecked the patient. She is still having some tightness. It is a little bit better. She had taken nitroglycerin at home without any significant benefit. However, her heart rate is down from 130s to about 115 now. At this point I do not want to give both a beta-shruti and nitroglycerin at the same time as I may cause problems with her blood pressure. Since she is still tachycardic I think it is important to get her heart rate down as she may be having rate dependent ischemia. We will give another dose of metoprolol as it did give some benefit. 0705 Patient's recheck. Her heart rate really has not changed with the second dose of metoprolol and a third is now ordered. She is hanging about 114 or 115 rate. She looks like she feels a little better. She states she still has tightness though. She states it is better than when she came in though. It is improving. Patient had originally stated that the nitroglycerin seemed fresh when she took it. But she is now stating that she really does not recall it tingling or causing a headache at all. She is not sure how old it was. So this now leads me to believe that her nitroglycerin was not, in fact, fresh. I will try some nitroglycerin to see if this will help her. I also talked with Dr. Mata who is very familiar with this patient. He agreed with trying to slow her rate down and then try nitroglycerin to control her pain. He recommended admission and they will go ahead with heart catheterization this morning. I will make a call to hospitalist. Patient CBC was overall normal. Electrolytes look good. Troponin was negative at this time. However, with her history, high heart rate, and symptoms I am suspicious her troponin will likely increase. I discussed case with hospitalist who came down to see the patient. The patient got nitro here and her pain was gone. But her heart rate was still up at about 115. Hospitalist discussed the case again with cardiology. It was decided to give her adenosine. I went in the room to do this. As soon as I walked in the room her heart rate went down to about 58 and was sinus. I then left. She then went back to a rate of 117 that was regular. We then ended up giving a dose of 6 mg of adenosine that transiently brought her down to sinus again but the for less than a minute. We then gave her 12 mg of adenosine and she is stayed in sinus now. They plan to start amiodarone. Patient will be admitted. Due to multiple visits with the patient, multiple medications, chemical cardioversion, discussing with consultants, critical care time of 48 minutes. Lab Data Attestation: I reviewed the patient's lab results. Labs: Laboratory Results - last 24 hr 04/20/22 04/20/22 05:55 05:55 WBC 8.2 RBC 4.80 Hgb 13.6 Hct 43.4 MCV 90.4 MCH 28.3 MCHC 31.3 L RDW Std Deviation 50.9 H RDW Coeff of [place] 15.2 H Plt Count 360 MPV 10.1 Immature Gran % (Auto) 0.200 Neut % (Auto) 59.5 Lymph % (Auto) 20.0 Cavalier % (Auto) 12.1 H Eos % (Auto) 7.1 H Baso % (Auto) 1.1 H Absolute Neuts (auto) 4.9 Absolute Lymphs (auto) 1.64 Nucleated RBC % 0 Sodium 139 Potassium 3.8 Chloride 105 Carbon Dioxide 25.0 Anion Gap 9 BUN 23 H Creatinine 1.02 Estim Creat Clear Calc 35.78 Est GFR (MDRD) Af Amer 67 Est GFR (MDRD) Non-Af 55 L BUN/Creatinine Ratio 22.5 H Glucose 118 H Calcium 9.3 Magnesium 2.5 Troponin I High Sens 24 TSH 42.00 H Radiography Diagnostic Testing: Clinical Impression(s) from Imaging Studies Chest X-Ray 04/20/22 05:48 IMPRESSION: No radiographic evidence of acute cardiopulmonary disease. Electronically Signed: Jak Medeiros MD at 6:19 EST , EKG Initial EKG: Comments: My independent interpretation of an EKG done for chest tightness shows a regular rhythm with tachycardic rate at 129. Although the computer reading picks up the P wave I am not seeing a definitive consistent P wave. There is no ventricular ectopy. There is some lateral ST depression in V4 V5 and V6. Minimal in V3. Trace elevation in aVR. This is similar to 11/17/[address]. This is different than a more recent EKG where she was more bradycardic. QRS duration is normal. QTc is long at 503 ms. Critical Care Time Critical Care Time: Yes Critical care time (excluding procedures): 30-74 minutes, Discussing w/Patient &/or Family/Dental Internship, Discussing w/Consultants, Arranging Admission or Transfer, Performing Direct Patient Care at Bedside and - (48 minutes. See MDM) Discharge Plan Dx/Rx/DC Orders Clinical Impression: Angina pectoris, Tachycardia Disposition Disposition: [facility] ([facility] Care [facility]
[2022-04-20] MEDS: Metoprolol Tartrate 5 MG/5 ML Vial IV ×3 (06:03→07:22)
[2022-04-20] MEDS: Aspirin 81 MG TAB.CHEW 324 MG PO (06:04)
[2022-04-20 06:06] LABS: Absolute Lymphocyte Count 1.64 X10^3/uL (0.83-4.51); Absolute Neutrophil Count 4.9 X10^3/uL (2.0-7.7); Basophil# 0.09 X10^3/uL; Basophil% 1.1 % (0-1); Eosinophil# 0.58 X10^3/uL; Eosinophils% 7.1 % (0-5); Hematocrit 43.4 % (37-47); Hemoglobin 13.6 g/dL (12.0-15.0); Lymphocyte # 1.64 X10^3/ul (0.83-4.51); Mean Corp Hgb Conc 31.3 g/dL (32-36); Mean Corpuscular Hgb 28.3 pg (27.0-32.0); Mean Corpuscular Volume 90.4 fL (81-99); Mean Platelet Vol. 10.1 fl (6.2-12.0); Monocyte# 0.99 X10^3/uL; Monocyte% 12.1 % (0-10); NRBC Flagged by Analyzer 0 % (0-5); Neutrophil # 4.88 X10^3/uL (2.7-7.7); Neutrophil % 59.5 % (47-70); Platelet Count 360 K/mm3 (150-450); RBC Distribution Width CV 15.2 % (11.6-14.6); RBC Distribution Width SD 50.9 fl (35.1-43.9); White Blood Count 8.2 K/mm3 (4.4-11.0)
[2022-04-20 06:39] LABS: Anion Gap 9 (5-15); BUN 23 mg/dL (7-18); BUN/Creat Ratio 22.5 RATIO (10-20); Calcium,Total 9.3 mg/dL (8.5-10.1); Chloride 105 mmol/L (98-107); Creatinine, Serum 1.02 mg/dL (0.55-1.02); EST Glomerular Filtration Rate 55 mL/min (>60); Est Glom Filt Rate - Afr Amer 67 mL/min (>60); Estimated Creatinine Clearance 35.78 ml/min; Glucose 118 mg/dL (74-106); Magnesium 2.5 mg/dL (1.6-2.6); Potassium 3.8 mmol/L (3.5-5.1); Sodium Level 139 mmol/L (136-145); Troponin-I HS (w/2H Reflex) 24 pg/mL (3.0-54.0)
[2022-04-20] MEDS: Nitroglycerin SL (ED/IMG/CATH) 0.4 MG TABLET SL ×2 (07:22→07:27)
--- NOTE | 2022-04-20 07:35 | EKG12_ITS ---
Test Reason : CP Blood Pressure : / mmHG Vent. Rate : 129 BPM Atrial Rate : 129 BPM P-R Int : 158 ms QRS Dur : 088 ms QT Int : 344 ms P-R-T Axes : 000 -72 153 degrees QTc Int : 503 ms Supraventricular tachycardia : Consider atrial tachycardia vs atrial flutter with 2:1 AV conduction Left anterior fascicular block Marked ST abnormality, possible inferolateral subendocardial injury Abnormal ECG Confirmed by FREDY OWENS, JULITA ([id number]), editorial intern DAVID SMITH ([id number]) on 04/22/2022 9:43:41 AM Referred By: PL Confirmed By:JULITA DANIEL MD
--- NOTE | 2022-04-20 07:40 | EKG12_ITS ---
Test Reason : CARDIOVERSION/ADENOSINE Blood Pressure : / mmHG Vent. Rate : 067 BPM Atrial Rate : 067 BPM P-R Int : 162 ms QRS Dur : 088 ms QT Int : 424 ms P-R-T Axes : 013 -65 080 degrees QTc Int : 448 ms Normal sinus rhythm Possible Left atrial enlargement Left anterior fascicular block Confirmed by BRITTANY OWENS, AYANNA ([id number]), photo editor DAVID SMITH ([id number]) on 04/21/2022 1:31:46 PM Referred By: Confirmed By:AYANNA SOTO MD
[2022-04-20] MEDS: Adenosine 6 MG/2 ML Syringe IV (07:44)
[2022-04-20] MEDS: Adenosine 6 MG/2 ML Syringe 12 MG IV (07:46)
[2022-04-20 08:04] LABS: Reflex Troponin-HS? (from REC) Y
--- NOTE | 2022-04-20 08:20 | HP.PCM.HOS_ITS ---
HPI - General General Date of Admission: 04/20/22 Date of Service: 04/20/22 Chief Complaint: Chest pain HPI Narrative EVENS MESSERORRZANA, is a 81 F who presents to the emergency room at [facility] with complaints of chest pain which she describes as pressure-like in nature across her chest. She was scheduled for a cardiac cath eterization today at 9 AM due to an abnormal echocardiogram that been done as an outpatient, she is a patient of Dr. Mata's chronically. Patient was up at 430 this morning when the pain began, she rated at an 8 out of 10, she was seen in the emergency room and evaluated, she was noted to be in a tachycardia-it was unclear whether this was atrial flutter or sinus tach, the rate was regular at approximately 1 20-1 30. EKG showed no distinct flutter waves, there was ST-T wave changes in the lateral anterior wall leads however she had similar changes on previous EKGs Patient was given IV metoprolol in attempt to control her heart rate, a total of 15 mg IV was given with minimal effect on the heart rate, is in contact with Dr. Mata by phone and administered 6 mg of adenosine and then 12 mg of adenosine, at this point the patient's rate changed to a sinus rhythm at approximately 70-80. Patient's chest pain disappeared. Patient's labs done in the emergency room showed a normal CBC, patient's chemistry profile was remarkable for BUN of 23, patient's TSH was high at 42, troponin was unremarkable. Patient's chest x-ray showed no active infiltrates, patient's blood pressure initially was high but dropped to 146/97 at the time of this dictation. Patient was on room air with a pulse ox of 92. Patient was started on an amiodarone bolus with a drip continuing at 1mg/min per request of cardiology. Patient will be admitted for unstable angina and undergo heart catheterization this morning. Patient's daughter was in the room during the time of my examinations this morning, patient's care was discussed with her also. [facility] Medical History Abnormal ECG Abnormal serum enzyme level Abnormal stress test Angina pectoris Atherosclerotic heart disease of [place] coronary artery without angina pectoris Bladder prolapse Chest pain Essential hypertension History of coronary artery stent placement (~09/25/13) Hypothyroidism Ischemic cardiomyopathy senior living use of drug Non-rheumatic mitral regurgitation Nonrheumatic mitral valve disorder NSTEMI (non-ST elevation myocardial infarction) Old myocardial infarction Pure hypercholesterolemia Tachycardia Home Medications Handwilda cruz #1 ea 11/19/20 [Rx Last Taken Unknown] levothyroxine 75 mcg tablet 75 mcg PO DAILY thyroid 05/06/21 [History Last Taken 02/09/22] sertraline 50 mg tablet 50 mg PO DAILY ANXIETY 05/06/21 [History Last Taken 02/08/22] apixaban 5 mg tablet (Eliquis) 5 mg PO BID BLOOD THINNER 02/09/22 [History Last Taken 02/08/22] aspirin 81 mg tablet,delayed release 81 mg PO DAILY HEART 02/09/22 [History Last Taken 04/20/22 0430] hydroxyzine HCl 50 mg tablet 50 mg PO QHS PRN Sleep 02/09/22 [History Last Taken 02/08/22] isosorbide mononitrate 120 mg tablet,extended release 24 hr 120 mg PO DAILY HEART 02/09/22 [History Last Taken 02/08/22] losartan 50 mg tablet 50 mg PO BID BP 02/09/22 [History Last Taken 02/08/22] melatonin 10 mg tablet 20 mg PO QHS SLEEP 02/09/22 [History Last Taken 02/08/22] pravastatin 80 mg tablet 80 mg PO QHS CHOLESTEROL 02/09/22 [History Last Taken 02/08/22] nitroglycerin 0.4 mg sublingual tablet 0.4 mg sublingual Q5M PRN Chest Pain #25 tabs 02/25/22 [Rx Last Taken 04/20/22 04:30] furosemide 40 mg tablet 40 mg PO DAILY #135 tabs 02/26/22 [Rx Last Taken 04/20/22 04:30] omeprazole 20 mg capsule,delayed release 40 mg PO DAILY GERD 03/12/22 [History Last Taken 04/20/22 04:30 40] potassium chloride 20 mEq tablet,extended release 20 meq PO DAILY #90 tabs 03/19/22 [Rx Last Taken 04/20/22 04:30 20] carvedilol 12.5 mg tablet 6.25 mg PO BID 04/20/22 [History Last Taken 04/20/22 6.25] Allergy/AdvReac Type Severity Reaction Status Date / Time morphine AdvReac Severe Junctional Verified 04/12/22 15:37 rhythm lisinopril AdvReac Intermediate Cough Verified 04/12/22 15:37 Family History Mother Breast cancer Myocardial infarction CAD (coronary artery disease) Diabetes Father Myocardial infarction CAD (coronary artery disease) Brother Myocardial infarction Diabetes CAD (coronary artery disease) Sister Breast cancer Hypertension Surgical History Presence of coronary angioplasty implant and graft (~09/25/13) Social History household members: none Smoking Status: Never smoker alcohol intake: never substance use type: does not use caffeine: No what type of physical activity do you participate in: walking frequency: 3-4 times per week duration: 45-60 minutes/day seatbelt use: always do you feel safe at home: Yes ROS Constitutional Constitutional: Denies anorexia, change in weight, chills, fatigue, fever(s), night sweats or weakness Eyes Eyes: Denies blurry vision, change in vision, discharge from eye(s) or eye pain Cardiovascular Cardiovascular: Reports chest pain; Denies claudication, edema, lightheadedness or palpitations Respiratory/Chest Respiratory/Chest: Denies cough, excessive phlegm production, hemoptysis, productive cough, shortness of breath at rest or shortness of breath with exerti on Gastrointestinal Gastrointestinal: Denies abdominal pain, constipation, diarrhea, hematemesis, hematochezia, melena, nausea or vomiting Genitourinary Genitourinary: Denies dysuria, hematuria, urinary frequency, urinary hesitancy, urinary incontinence or urinary urgency Musculoskeletal Musculoskeletal: Denies back pain, joint pain, joint stiffness, joint swelling, myalgias or neck pain Neurologic Neurologic: Denies abnormal gait, abnormal speech, confusion, disequilibrium, dizziness, focal weakness, headache(s), loss of vision, numbness, other visual disturbances, paresthesias, syncope or tingling Psychiatric Psychiatric: Denies anxiety, cognitive impairment, depression, irritability, mood swings or suicidal ideation Endocrine Endocrinology: Denies change in body appearance, cold intolerance, excessive sweating, heat intolerance, polydipsia or polyuria Hematologic/Lymphatic Hematologic/Lymphatic: Denies none, anemia, easy bleeding, easy bruising or lymphadenopathy Allergic/Immunologic Allergic/Immunologic: Denies rhinitis, urticaria, eczemia or asthma Vital Signs Vital Signs Vital Signs: 04/20/22 05:39 04/20/22 05:48 04/20/22 06:23 Temperature 97.1 F L Temperature Source Temporal Pulse Rate 130 H 116 H Respiratory Rate 19 H 19 H Blood Pressure 185/115 H 176/104 H Blood Pressure Mean 138 128 Pulse Ox 99 95 94 Oxygen Delivery Method Room Air Room Air Room Air 04/20/22 06:33 04/20/22 07:22 04/20/22 07:27 Temperature Temperature Source Pulse Rate 116 H 117 H 115 H Respiratory Rate 19 H Blood Pressure 172/101 H 168/104 H 162/99 H Blood Pressure Mean 124 Pulse Ox 95 Oxygen Delivery Method Room Air 04/20/22 07:31 04/20/22 07:37 04/20/22 07:39 Temperature Temperature Source Pulse Rate 116 H 58 L 116 H Respiratory Rate 15 Blood Pressure 146/97 H Blood Pressure Mean 113 Pulse Ox 92 Oxygen Delivery Method Room Air 04/20/22 07:44 04/20/22 07:45 04/20/22 07:47 Temperature Temperature Source Pulse Rate 58 L 117 H 57 L Respiratory Rate Blood Pressure Blood Pressure Mean Pulse Ox Oxygen Delivery Method 04/20/22 07:48 Temperature Temperature Source Pulse Rate Respiratory Rate Blood Pressure 146/97 H Blood Pressure Mean 113 Pulse Ox Oxygen Delivery Method Weight Weight: 54.6 kg Body Mass Index (BMI) 21.3 Physical Exam Const alert, oriented x3, no apparent distress and healthy appearing Constitutional Narrative: Patient appears younger than her stated age General Appearance: cooperative, well kempt and well developed Orientation / Consciousness: awake, oriented to person, oriented to place and oriented to time HEENT normocephalic, head/scalp atraumatic, hearing grossly normal bilaterally and moist oral mucous membranes Eyes PERRL, EOMs intact bilaterally and conjunctivae normal Neck supple, no JVD, thyroid normal and no carotid bruits General: trachea midline Resp normal respiratory effort, no retractions, no use of accessory muscles and clear to auscultation bilaterally Auscultation: Negative for rales, rhonchi or wheezes Cardio regular rate, regular rhythm, S1 normal heart sound, S2 normal heart sound, no murmurs, no rub and no gallops Cardio Narrative: Patient was initially tachycardic at 120 during my examination but after medication administration, converted to sinus rhythm at 70-80 GI normal to inspection, nondistended, normoactive bowel sounds, soft to palpation, non-tender and non-distended Extremity no clubbing, cyanosis or edema Skin no rashes or lesions noted General Skin Exam: no breakdown Neuro oriented x3, CN's II-XII intact bilaterally, no focal motor deficits and no sensory deficits noted Sensorium / Orientation: awake and alert Speech: speech normal Psych affect normal Results Lab / Micro Data Result Diagrams: 04/20/22 05:55 04/20/22 05:55 Labs: Laboratory Results - last 24 hr 04/20/22 05:55: WBC 8.2, RBC 4.80, Hgb 13.6, Hct 43.4, MCV 90.4, MCH 28.3, MCHC 31.3 L, RDW Std Deviation 50.9 H, RDW Coeff of [place] 15.2 H, Plt Count 360, MPV 10.1, Immature Gran % (Auto) 0.200, Neut % (Auto) 59.5, Lymph % (Auto) 20.0, [place] % (Auto) 12.1 H, Eos % (Auto) 7.1 H, Baso % (Auto) 1.1 H, Absolute Neuts (auto) 4.9, Absolute Lymphs (auto) 1.64, Nucleated RBC % 0 04/20/22 05:55: Sodium 139, Potassium 3.8, Chloride 105, Carbon Dioxide 25.0, Anion Gap 9, BUN 23 H, Creatinine 1.02, Estim Creat Clear Calc 35.78, Est GFR (MDRD) Af Amer 67, Est GFR (MDRD) Non-Af 55 L, BUN/Creatinine Ratio 22.5 H, Glucose 118 H, Calcium 9.3, Magnesium 2.5, Troponin I High Sens 24, TSH 42.00 H Radiology Impression Chest X-Ray 04/20/22 05:48 IMPRESSION: No radiographic evidence of acute cardiopulmonary disease. Electronically Signed: Jak Medeiros MD at 6:19 EST Reading Location ID and State: [facility] / [place] Tel , Service support , Assessment & Plan Assessment/Plan (1) Tachycardia: PLAN: Plan 1. Unstable angina-patient will be admitted to PCU, cardiac enzymes will be cycled, patient will undergo a cardiac catheterization today. At the present time, patient has no complaints of any chest pain #2 tachycardia-etiology unclear, possibly atrial flutter, this has converted to normal sinus with administration of adenosine and metoprolol in the emergency room. Patient had been taken off her Cardizem due to bradycardia-this was noted on a cardiology office visit dated 11/16/2021 #3 cardiomyopathy, felt to be ischemic in nature-patient's echocardiogram on 02/23/2022 showed an EF of 30%, there is moderate mitral valve insufficiency. Again patient will undergo cardiac catheterization to rule out occlusive coronary disease #4 coronary artery disease by history-again patient will undergo cardiac catheterization today, her home medications will be adjusted as needed by cardiology #5 hyperlipidemia-patient will remain on her home medication #6 elevated TSH-patient will need a T3 and T4 drawn, it appears that she is currently taking Synthroid 75 mcg daily. #7 paroxysmal atrial flutter-patient is on rate control medications at home, this may need to be readjusted in the hospital #8 hypercoagulable state secondary to #7-patient was on Eliquis up to a few days ago-she stopped this medication due to her upcoming cardiac catheterization today. This most likely will have to be restarted after the cardiac catheterization. Patient appears medically stable at this time, total clinical time spent by myself addressing the patient's medical issues, reviewing all the data, and collaborating with patient's care team: 75-minutes Charges/Coding Visit Charges Inpatient E&M: 86122 Init Hosp L3
--- NOTE | 2022-04-20 08:24 | CON.PCM.CA_ITS ---
Assessment & Plan Assessment/Plan (1) SVT (supraventricular tachycardia): PLAN: The patient has been found to have evidence of an underlying supraventricular tachycardia. The etiology was unclear as to whether or not this was related to the patient's history of an underlying atrial flutter. However, the patient was treated with IV adenosine and had subsequent abrupt termination to an underlying sinus rhythm/sinus bradycardia. Thus, this appears compatible with an underlying reentry mechanism tachycardia such as an underlying AVNRT. At the present time the patient's cardiac rate and rhythm will be monitored. She will continue medical therapy as deemed appropriate with rate control therapy. It may be reasonable to consider at this time, during her evaluation and care, and attempted antiarrhythmic therapy. In her case based upon concerns of underlying CAD status and left ventricular status, etc., it may be reasonable to consider IV amiodarone. She will need her cardiac rate and rhythm monitored for any progressive bradycardia dysrhythmias. The patient may need subsequent evaluation by electrophysiology for conside ration for an EPS/RFA. Also depending upon the patient's rates and rhythms if she is demonstrating evidence of an underlying sick sinus syndrome with bradycardia/tachycardia then she may need to eventually medical management and permanent pacemaker support. (2) Angina pectoris: PLAN: The patient describes symptoms compatible with angina pectoris. Is unclear if this is related to her underlying CAD process is a primary etiology versus being secondary to an underlying atrial dysrhythmia/SVT. At the moment her high-sensitivity troponin I levels negative. Her ECG does demonstrate ST and T wave changes as noted above. She will continue to be monitored. She will proceed with evaluation with diagnostic cardiac catheterization to reassess her coronary anatomy and whether or not she needs any additional revascularization therapy. (3) CAD (coronary artery disease): PLAN: The patient's CAD history was reviewed. She is undergone extensive evaluation in the past locally and at a tertiary care center. This is included noninvasive and invasive studies including PCI procedures. At the moment based upon her symptoms and her other objective findings she will continue medical management and undergo further evaluation with diagnostic cardiac catheterization. With respect to her medications it would be reasonable to continue her aspirin 81 mg p.o. daily, her isosorbide mononitrate at 120 mg p.o. daily, her beta- blockers with respect to her carvedilol with dose adjusted based upon her cardiac rate and rhythm, as well as her other agents such as her losartan 50 mg p.o. twice daily and her pravastatin at 80 mg p.o. nightly. She does have nitroglycerin sublingual as needed. (4) History of coronary artery stent placement: PLAN: The patient's most recent PCI history was reviewed. Based upon her last cardiac catheterization she continued medical management. This will be reassessed with her upcoming cardiac catheterization. (5) Ischemic cardiomyopathy: PLAN: The patient does have a history of underlying ischemic mediated cardiomyopathy with varying LV systolic function/LVEF values. She does not appear to have symptoms at the moment of acute CHF/pulmonary edema. She will continue medical management as noted above. She will continue her diagnostic evaluation with her cardiac catheterization. (6) Non-rheumatic mitral regurgitation: PLAN: The patient has a history of mitral valve disorder/mitral valve regurgitation. Her most recent transthoracic echocardiogram was noted demonstrating moderate MR. At the moment she will continue to be followed as noted above. (7) Paroxysmal atrial flutter: PLAN: The patient has a history of paroxysmal atrial flutter for which she has been treated medically with rate control and anticoagulant therapy with apixaban at 5 mg p.o. twice daily. At the moment she will continue medical management with adjustment of her rate control therapy and her anticoagulant therapy in and around the time of her ongoing inpatient diagnostic evaluation and care. (8) Pure hypercholesterolemia: PLAN: The patient should continue medical management with her pravastatin 80 mg p.o. nightly. (9) Essential hypertension: PLAN: The patient's blood pressure was elevated upon arrival in the [facility] emergency department. It does appear to be improving. She will continue medical therapy as noted with adjustment of her antihypertensive regimen as needed. Addt'l Comments The patient's case was discussed and reviewed with the patient, her family members present, Dr. Yadav of the [facility] emergency department staff, and Dr. Lanier of the [facility] hospital staff. Comment: Time spent the patient's evaluation, examination, review of medical records, review of cardiac rhythm strips/ECGs, review of chest x-ray, discussion with family, discussion with the hospital staff, and documentation, etc.: 60 minutes. HPI Consult Data Date of Consult: 04/20/22 HPI Narrative Reason for Consultation: Atrial Dysrhythmia; Chest Pain HPI Narrative: EVENS MCMORROW, is a 81 white female who presents [facility] emergency department evaluation for concerns of an underlying atrial dysrhythmia, chest pain, superimposed upon history of CAD, PCI, ischemic mediated cardiomyopathy, mitral valve disorder/regurgitation, hyperlipidemia, and hypertension previously scheduled for an outpatient diagnostic cardiac catheterization this day based upon concerns of shortness of breath/dyspnea on exertion and an abnormal transthoracic echocardiogram. The patient has undergone extensive noninvasive and invasive cardiovascular evaluation in the past. Her studies are noted below and they have been reviewed with her. Based upon concerns of shortness of breath/dyspnea she underwent a transthoracic echocardiogram. The results are noted below. There were concerns of progre ssion of underlying koi vessel CAD. Thus a diagnostic cardiac catheterization was recommended. The patient states she awoke this morning in preparation for her diagnostic cardiac catheterization. She noted she felt a chest tightness across her precordium. She did not sense an acute change in her respiratory status. She did not sense any obvious palpitations or rapid heart rate. There was no loss of consciousness. She took nitroglycerin sublingual x2 at home. She states she did develop a headache and felt slightly nauseated but had no significant change in her chest discomfort. Thus she elected to present to the [facility] emergency department for further evaluation. In the emergency department she was noted to be tachycardic and hypertensive. She had what appeared to be a narrow complex tachycardia with a ventricular rate of approximately 130 bpm. The underlying etiology was uncertain. She had a negative high-sensitivity troponin I level. Her ECG demonstrated what appeared to be an underlying SVT with left axis deviation with a septal UT pattern of in determinate age cannot be excluded and ST and T wave changes potentially compatible with myocardial ischemia in the anterolateral distribution. She was treated by Dr. Yadav of the [facility] emergency department staff with IV metoprolol 5 mg x 3. She apparently had transient slowing of her rate. She was subsequently noted to have an abrupt termination of her underlying SVT to return to sinus rhythm. However she then returned to her SVT. She was then evaluated by the [facility] emergency department staff and the [facility] hospital staff. She was treated with IV adenosine. She was given IV adenosine 6 mg x 1 with return to sinus rhythm which then return to her underlying narrow complex tachycardia. She was then given adenosine 12 mg IV x1 and had subsequent abrupt termination of her underlying SVT pattern into an underlying sinus rhythm. As her rhythm converted her blood pressure improved and her symptoms improved. At the present time she states she is resting comfortably. She describes no ongoing chest discomfort. Again she has no acute respiratory issues. She is not complaining of nausea. There is been no emesis. There has been no sensation of palpitation or rapid heart rate. She denies any near-syncope or syncope. She did have a follow-up ECG. She was noted to be in sinus rhythm with left axis deviation with possible left atrial enlargement and voltage criteria for being considered for LVH with a septal UT of indeterminate age cannot be excluded and ST and T wave changes in the anterolateral distribution potentially compatible with myocardial ischemia. Her chest x-ray was reviewed. It appeared to demonstrate a portable chest x-ray with the appearance of no acute cardiopulmonary disease pattern. The radiology report is pending at this time. [facility] Medical History Abnormal ECG Abnormal serum enzyme level Abnormal stress test Angina pectoris Atherosclerotic heart disease of koi coronary artery without angina pectoris Bladder prolapse Chest pain Essential hypertension History of coronary artery stent placement (~09/25/13) Hypothyroidism Ischemic cardiomyopathy [employer] use of drug Non-rheumatic mitral regurgitation Nonrheumatic mitral valve disorder NSTEMI (non-ST elevation myocardial infarction) Old myocardial infarction Pure hypercholesterolemia Tachycardia Home Medications Handicap anthony #1 ea 11/19/20 [Rx Last Taken Unknown] levothyroxine 75 mcg tablet 75 mcg PO DAILY thyroid 05/06/21 [History Last Taken 02/09/22] sertraline 50 mg tablet 50 mg PO DAILY ANXIETY 05/06/21 [History Last Taken 02/08/22] apixaban 5 mg tablet (Eliquis) 5 mg PO BID BLOOD THINNER 02/09/22 [History Last Taken 02/08/22] aspirin 81 mg tablet,delayed release 81 mg PO DAILY HEART 02/09/22 [History Last Taken 04/20/22 0430] hydroxyzine HCl 50 mg tablet 50 mg PO QHS PRN Sleep 02/09/22 [History Last Taken 02/08/22] isosorbide mononitrate 120 mg tablet,extended release 24 hr 120 mg PO DAILY HEART 02/09/22 [History Last Taken 02/08/22] losartan 50 mg tablet 50 mg PO BID BP 02/09/22 [History Last Taken 02/08/22] melatonin 10 mg tablet 20 mg PO QHS SLEEP 02/09/22 [History Last Taken 02/08/22] pravastatin 80 mg tablet 80 mg PO QHS CHOLESTEROL 02/09/22 [History Last Taken 02/08/22] nitroglycerin 0.4 mg sublingual tablet 0.4 mg sublingual Q5M PRN Chest Pain #25 tabs 02/25/22 [Rx Last Taken 04/20/22 04:30] furosemide 40 mg tablet 40 mg PO DAILY #135 tabs 02/26/22 [Rx Last Taken 04/20/22 04:30] omeprazole 20 mg capsule,delayed release 40 mg PO DAILY GERD 03/12/22 [History Last Taken 04/20/22 04:30 40] potassium chloride 20 mEq tablet,extended release 20 meq PO DAILY #90 tabs 03/19/22 [Rx Last Taken 04/20/22 04:30 20] carvedilol 12.5 mg tablet 6.25 mg PO BID 04/20/22 [History Last Taken 04/20/22 6.25] Allergy/AdvReac Type Severity Reaction Status Date / Time morphine AdvReac Severe Junctional Verified 04/12/22 15:37 rhythm lisinopril AdvReac Intermediate Cough Verified 04/12/22 15:37 Family History Mother Breast cancer Myocardial infarction CAD (coronary artery disease) Diabetes Father Myocardial infarction CAD (coronary artery disease) Brother Myocardial infarction Diabetes CAD (coronary artery disease) Sister Breast cancer Hypertension Surgical History Presence of coronary angioplasty implant and graft (~09/25/13) Social History household members: none Smoking Status: Never smoker alcohol intake: never substance use type: does not use caffeine: No what type of physical activity do you participate in: walking frequency: 3-4 times per week duration: 45-60 minutes/day seatbelt use: always do you feel safe at home: Yes ROS Constitutional Constitutional: Reports as per HPI Eyes Eyes: Reports as per HPI ENT HEENT: Reports as per HPI Cardiovascular Cardiovascular: Reports chest pain at rest Respiratory/Chest Respiratory/Chest: Reports as per HPI Gastrointestinal Gastrointestinal: Reports as per HPI Genitourinary Genitourinary: Reports as per HPI Musculoskeletal Musculoskeletal: Reports as per HPI Integumentary Integumentary: Reports as per HPI Neurologic Neurologic: Reports as per HPI Psychiatric Psychiatric: Reports as per HPI Physical Exam Const alert, oriented x3 and no apparent distress Orientation / Consciousness: awake HEENT normocephalic, head/scalp atraumatic and hearing grossly normal bilaterally Eyes PERRL, EOMs intact bilaterally, conjunctivae normal and no scleral icterus Neck full ROM, supple and no JVD Carotids: normal carotid upstroke Chest inspection of chest normal Resp normal respiratory effort and clear to auscultation bilaterally Cardio regular rhythm, S1 normal heart sound and S2 normal heart sound Rate: bradycardia GI normal to inspection, nondistended, normoactive bowel sounds Extremity no pedal edema Skin Skin Narrative: Ecchymoses: Inferior to the right orbit General Skin Exam: ecchymosis Psych mental status grossly normal Risk Stratification Risk Stratification Applicable: Yes Age >/= 65: Yes >/= 3 CAD Risk Factors (HTN, HLD, DM, family hx of CAD, or current smoker): Yes Aspirin Use in the Past 7 Days: Yes Severe Angina (>/= episodes in 24 hours): Yes EKG ST Changes >/= 0.5mm: Yes Positive Cardiac Marker: No LIZA Risk Stratification Score: 5 LIZA % Risk: 25% Risk Procedure Criteria Type of Procedure Procedure Type: Elective Elective Risks - COVID COVID Risk Discussion: The surgeon/proceduralist and patient have discussed in detail the risk of exposure to and/or potential harm posed by the COVID-19 virus with having a surgery/procedure at this time versus the risk of delaying the surgery/procedu re. It is not possible to know either the risk of delaying the surgery or procedure or chance of getting an infection with perfect accuracy, but a joint decision was made between the patient and the surgeon/proceduralist to proceed at this time with the scheduled surgery/procedure as indicated on the consent form. Objective Data Vital Signs: Vital Signs Temp Pulse Resp BP Pulse Ox O2 Del Method 97.1 F L 57 L 15 146/97 H 92 Room Air 04/20/22 05:39 04/20/22 07:47 04/20/22 07:31 04/20/22 07:48 04/20/22 07:31 04/20/22 07:31 Oxygen Delivery Method Room Air Weight: 120 lb 5.958 oz Body Mass Index (BMI) 21.3 Lab / Micro Data Result Diagrams: 04/20/22 05:55 04/20/22 05:55 Labs: Laboratory Results - last 24 hr 04/20/22 05:55: WBC 8.2, RBC 4.80, Hgb 13.6, Hct 43.4, MCV 90.4, MCH 28.3, MCHC 31.3 L, RDW Std Deviation 50.9 H, RDW Coeff of Polo 15.2 H, Plt Count 360, MPV 10.1, Immature Gran % (Auto) 0.200, Neut % (Auto) 59.5, Lymph % (Auto) 20.0, Walsh % (Auto) 12.1 H, Eos % (Auto) 7.1 H, Baso % (Auto) 1.1 H, Absolute Neuts (auto) 4.9, Absolute Lymphs (auto) 1.64, Nucleated RBC % 0 04/20/22 05:55: Sodium 139, Potassium 3.8, Chloride 105, Carbon Dioxide 25.0, Anion Gap 9, BUN 23 H, Creatinine 1.02, Estim Creat Clear Calc 35.78, Est GFR (MDRD) Af Amer 67, Est GFR (MDRD) Non-Af 55 L, BUN/Creatinine Ratio 22.5 H, Glucose 118 H, Calcium 9.3, Magnesium 2.5, Troponin I High Sens 24, TSH 42.00 H Cardiology Labs/Tests 04/20/22 05:55: WBC 8.2, RBC 4.80, Hgb 13.6, Hct 43.4, MCV 90.4, MCH 28.3, MCHC 31.3 L, Plt Count 360, MPV 10.1, Immature Gran % (Auto) 0.200, Neut % (Auto) 59.5, Lymph % (Auto) 20.0, Walsh % (Auto) 12.1 H, Eos % (Auto) 7.1 H, Baso % (Auto) 1.1 H, Absolute Neuts (auto) 4.9, Nucleated RBC % 0 04/20/22 05:55: Sodium 139, Potassium 3.8, Chloride 105, Carbon Dioxide 25.0, Anion Gap 9, BUN 23 H, Creatinine 1.02, Est GFR (MDRD) Af Amer 67, Est GFR (MDRD) Non-Af 55 L, BUN/Creatinine Ratio 22.5 H, Glucose 118 H, Calcium 9.3, M agnesium 2.5 Rhythm: Sinus rhythm/sinus bradycardia; PVCs EKG: As noted above Holter monitor: 09-07-2021 Sinus rhythm, sinus bradycardia, sinus tachycardia, paroxysmal atrial flutter Average heart rate 110 bpm-sinus tachycardia 5 PACs 6 PVCs No wide-complex runs Transthoracic echocardiogram: 03/10/14 Interpretation Summary Limited views were obtained. Mild segmental systolic dysfunction (see wall motion). The estimated ejection fraction is 50 %. The left atrium is mildly enlarged. Mild focal aortic valve thickening. Mild focal aortic valve calcification. Echocardiogram: 11/16/2018 Interpretation Summary Left ventricular systolic function is normal. The estimated ejection fraction is 55 %. The left atrium is mildly enlarged. Mild-Moderate (1-2+) mitral valve insufficiency. Mild tricuspid valve insufficiency. Mild focal aortic valve thickening. Trivial pulmonic valve insufficiency. Right ventricular systolic pressure estimated to be 29 mmHg. No evidence for diastolic dysfunction. Echocardiogram 02/23/2022: Interpretation Summary Moderately severe global left ventricular systolic dysfunction. The estimated ejection fraction is 30 %. Moderate (2+) eccentric mitral valve insufficiency. Trivial tricuspid valve insufficiency. Mild focal aortic valve thickening. Mild focal aortic valve calcification. Trivial pericardial effusion. There are no echocardiographic indications of cardiac tamponade. Right ventricular systolic pressure estimated to be 22 mmHg. Stage 1 diastolic dysfunction. Stress Test Report Date: ? Procedure: Pharmacologic stress nuclear imaging study Indications: Chest pain; CAD; PCI Consent: Per the patient Procedure: The patient underwent pharmacologic (Regadenoson) evaluation with a peak heart rate of 87 beats per minute (60 %predicted maximal heart rate) and a peak blood pressure of 162/84 mmHg. The baseline ECG demonstrated sinus bradycardia; nonspecific T wave abnormality.? The peak pharmacologic ECG demonstrated no obvious ECG changes. There were no cardiac dysrhythmias pretest, during pharmacologic infusion, or recovery. There was no complaint of chest discomfort during pharmacologic infusion or recovery. The examination was discontinued secondary to completion of protocol. Impression: 1.? Pharmacologic (Regadenoson) evaluation 2.? Peak pharmacologic ECG with no obvious ECG changes. 3.? There were no cardiac dysrhythmias pretest, during pharmacologic infusion, or recovery. 4.? Nuclear images pending Myocardial perfusion imaging study: Technique: The patient was injected with 11.1 millicuries of technetium 99m Cardiolite and subsequently rest SPECT Cardiolite nuclear imaging was obtained in the horizontal long, vertical long, and short axis views. The patient underwent pharmacologic (Regadenoson) evaluation with a peak heart rate of 87 beats per minute (60 % percent predicted maximal heart rate) and a peak blood pressure of 162/84 mmHg. The patient was injected with 33.3 millicuries of technetium 99m Cardiolite and subsequently stress SPECT Cardiolite nuclear imaging was obtained in the horizontal long, vertical long, and short axis views.? A gated Cardiolite study at peak stress was obtained. Interpretation: Rest and stress SPECT Cardiolite nuclear imaging status post realignment, normalization, and attenuation correction demonstrate at rest relative uniform tracer uptake.? Status post stress there is notation of a small area of diminished tracer uptake in the mid anterior segments.? There is end systolic thickening and brightening.? The gated Cardiolite study demonstrates myocardial thickening and inward wall motion.? The reported LVEF is 79 %. Impression: 1.? Rest and stress SPECT cardio light nuclear imaging demonstrate myocardial perfusion changes compatible with an area of stress-induced myocardial ischemia in the mid anterior segments, however, an element of shifting soft tissue/artifact cannot necessarily be excluded.. 2.? The gated Cardiolite study reports an LVEF of 79 %. Cardiac catheterization: 10/25/2018 CORONARY ANGIOGRAPHY DOMINANCE:? Right Dominant LEFT HEART ASSESSMENT Left Ventricular Ejection Fraction: by LV Gram 55 % Normal LV wall motion Normal Left Ventricular End Diastolic Pressure LVEDP: 8 mmHg LEFT MAIN: Absent: Separate ostia to the LAD and LCX LEFT ANTERIOR DESCENDING ARTERY: PROX LAD: Previously placed stent is patent MID LAD: small caliber vessel: 85 % Stenosis with no significant change s/p IC NTG 200 mcg CIRCUMFLEX ARTERY: small caliber vessel: diffuse 95 % Stenosis RIGHT CORONARY ARTERY: PROX RCA: Previously placed stent is patent MID RCA: Previously placed stent is patent DISTAL RCA: Mild luminal irregularities VALVE FINDINGS: Normal Aortic Valve function Normal Mitral Valve function AORTIC ROOT: Angiographically normal PCI: 09-25-2013: [facility] Proximal to mid [id number] stent: Resolute: 3.0 x 38 mm L1 stent (mid to distal) and 3.5 x 22 mm L1 stent (proximal to mid) Left ventricle: LVEF 40 to 45% Moderate to severe hypokinesis of the anterior wall of the left ventricle Left main coronary artery-patent LAD: Patent pre-existing stent in the proximal to midportion LCX: Proximal: Occluded-chronic total occlusion RCA: Proximal to mid diffuse 90% stenosis Radiography Diagnostic Testing: Radiology Impression Chest X-Ray 04/20/22 05:48 IMPRESSION: No radiographic evidence of acute cardiopulmonary disease. Electronically Signed: Jak Medeiros MD at 6:19 EST ,
[2022-04-20] MEDS: Amiodarone 360 MG in Dextrose 5% Viaflo Bag 192.8 ML 33.3 MG CONT INF (08:50)
[2022-04-20 09:32] LABS: Troponin-I HS 3069 pg/mL (3.0-54.0)
--- NOTE | 2022-04-20 12:45 | EKG12_ITS ---
Test Reason : Blood Pressure : / mmHG Vent. Rate : 104 BPM Atrial Rate : 104 BPM P-R Int : 222 ms QRS Dur : 090 ms QT Int : 348 ms P-R-T Axes : 000 -73 094 degrees QTc Int : 457 ms Sinus tachycardia with 1st degree A-V block Left axis deviation Possible Pulmonary disease pattern RSR' or QR pattern in V1 suggests right ventricular conduction delay Septal infarct , age undetermined T wave abnormality, consider lateral ischemia Abnormal ECG Confirmed by FREDY OWENS, JULITA ([id number]), staff editor DAVID SMITH ([id number]) on 04/22/2022 9:50:13 AM Referred By: Confirmed By:JULITA DANIEL MD
--- NOTE | 2022-04-20 13:28 | CL.D_ITS ---
Patient Name: EVENS ORDOÑEZ Study Date: 04/20/2022 Performing: Arnaud Mata MD Ht: 63 inches 160.02 cm : 1940 Wt: 128.99 lbs 58.51 kg Age: 81 Gender: female BSA: 1.6 PROCEDURE(S) PERFORMED [id number]-([id number])[facility] CLINICAL PROFILE AND INDICATIONS Indications: Worsening Angina, ACS <= 24 hrs, Suspected CAD, Cardiomyopathy, Cardiac Arrythmia Heart Failure: None Stress/Imaging Stress/Image Study Performed: No Angina Classification Anginal Classification w/in 2 Weeks: CCS IV CAD Presentations: Unstable angina. Non-STEMI. CONCLUSIONS Elevated Left Ventricular End Diastolic Pressure [place] Multivessel CAD RECOMMENDATIONS Risk factor modification Medical therapy Case discussed / reviewed with Dr. Pittman of Interventional Cardiology. The recommendation is for transfer to a tertiary care center for consider for a high risk PCI to the LAD system. DESCRIPTION OF PROCEDURE The patient arrived to the procedure lab. The risks and benefits of the procedure as well as a full description of our services here and current unavailability of surgical backup were fully explained to the patient and/or their significant other prior to the catheterization. The Timeout was completed, verifying the correct patient and procedure. The patient's procedural site was prepped and draped in the usual fashion. Local anesthetic was given subcutaneously to right groin region with Lidocaine 2%. Using a modified Seldinger technique, arterial access was obtained via the right femoral artery, a 4Fr sheath was inserted Left Coronary Artery selective angiography was performed in multiple views using a 4 Fr. JL5 catheter. Right Coronary Artery selective angiography was then performed in multiple views using a 4 Fr. 3DRC catheter. LV to AO pullback pressures were then recorded.The arterial sheath was pulled and manual compression applied until hemostasis is achieved. CORONARY ANGIOGRAPHY DOMINANCE: Right Dominant LEFT HEART ASSESSMENT Left Ventricular Ejection Fraction: Not assessed Elevated Left Ventricular End Diastolic Pressure LVEDP: 28 mmHg LEFT MAIN: absent: separate ostia to the LAD and LCX system LEFT ANTERIOR DESCENDING ARTERY: PROX LAD: Previously placed stent is patent MID LAD: Previously placed stent is patent, Mild luminal irregularities, discrete: 95 % Stenosis DIAGONAL 1: Proximal - small caliber vessel: 50 % Stenosis DIAGONAL 2: Proximal - Mild luminal irregularities CIRCUMFLEX ARTERY: small caliber vessel PROX CIRC: 90 MID CIRC: subtotally occluded OM 1: Proximal - small caliber vessel: patent OM 2: Proximal - small caliber vessel: patent RIGHT CORONARY ARTERY: PROX RCA: Previously placed stent is patent MID RCA: Previously placed stent is patent DISTAL RCA: 25 % Stenosis COMPLICATIONS No Complications PROCEDURE MEDICATIONS Versed 1 mg IV Oxygen: 2 L/min via nasal cannula SUMMARY OF HEMODYNAMIC DATA Time AIR REST ECG 10:48:37 AO 148/78 (107) SA 11:09:20 LV 171/10, 28 11:18:58 LV 172/10, 28 11:19:04 LVp 174/11, 26 11:19:10 AOp 173/85 (122) 11:19:15 AO 188/87 (126) 11:25:31 Signed By Arnaud Mata MD On 04/20/2022 13:27:36 Arnaud Mata MD
[2022-04-20] MEDS: 0.9% Normal Saline 1,000 ML 75 ML IV (14:34)
[2022-04-20] MEDS: Heparin Injection (Vial) 5,000 UNIT/ML VIAL 5000 UNIT SC (14:39)
--- NOTE | 2022-04-20 14:46 | ECHOL_ITS ---
Reason For Study: S/P CO Procedure This was a limited 2D transthoracic echocardiogram. Limited views were obtained. Exam performed in department. Left Ventricle Normal LV size. Mild concentric left ventricular hypertrophy. Severe global left ventricular systolic dysfunction. The estimated ejection fraction is 25 %. The global longitudinal strain = -7% (abnormal). Unable to assess diastolic dysfunction. Right Ventricle Normal RV size. Normal systolic function. Atria Normal left atrium. Normal right atrium. Mitral Valve There is no mitral annular calcification. Normal mitral valve. Tricuspid Valve Normal tricuspid valve. Aortic Valve Trisinus/trileaflet aortic valve. Mild focal aortic valve calcification. Pulmonic Valve The pulmonic valve is not well visualized. Pericardium/Pleural Trivial pericardial effusion. There are no echocardiographic indications of cardiac tamponade. MMode/2D Measurements & Calculations LVIDd: 4.8 cm IVSd: 1.3 cm LAV(MOD-sp4): 45.5 ml LVIDs: 3.9 cm LVPWd: 1.3 cm FS: 17.9 % LVAd ap4: 30.2 cm2 LVAd ap2: 29.8 cm2 SV(MOD-sp4): 30.3 ml LVLd ap4: 7.6 cm LVLd ap2: 7.5 cm EDV(MOD-sp4): 104.5 ml EDV(MOD-sp2): 102.6 ml EDV(sp4-el): 102.8 ml EDV(sp2-el): 101.3 ml LVAs ap4: 25.0 cm2 LVAs ap2: 25.2 cm2 LVLs ap4: 6.9 cm LVLs ap2: 7.1 cm ESV(MOD-sp4): 74.2 ml ESV(MOD-sp2): 76.1 ml ESV(sp4-el): 76.4 ml ESV(sp2-el): 76.6 ml EF(MOD-sp4): 29.0 % EF(MOD-sp2): 25.9 % EF(sp4-el): 25.6 % SV(MOD-sp2): 26.6 ml SV(sp4-el): 26.3 ml LA A4 area: 17.4 cm2 RA A4 area: 12.8 cm2 ECHO/Echo, Limited Study Interpretation Summary Limited views were obtained. Severe global left ventricular systolic dysfunction. The estimated ejection fraction is 25 %. Mild concentric left ventricular hypertrophy. The global longitudinal strain = -7% (abnormal). Mild focal aortic valve calcification. Trivial pericardial effusion. There are no echocardiographic indications of cardiac tamponade. Unable to assess diastolic dysfunction. Ordering Physician: Miguel Angel Lanier Referring Physician: Kenji Osei M.D. Performed By: Grace Parikh RCS
[2022-04-20] MEDS: Amiodarone 360 MG in Dextrose 5% Viaflo Bag 192.8 ML 16.7 MG CONT INF (15:13)
[2022-04-20] MEDS: Carvedilol 6.25 MG Tablet PO (16:22)
[2022-04-20] MEDS: Digoxin 250 MCG/ML Ampul 500 MCG IV (16:22)
--- NOTE | 2022-04-20 19:03 | PCM.DC.SUM ---
Providers Date of Admission: 04/20/22 Date of Discharge: 04/20/22 Primary Care Physician: Dr. Kenji Osei MD Consultations 04/20/22 13:10 Consult: Cardiology Routine Consulting Provider: Arnaud Mata Reason for Consult: unstable angina EMERGENT Consult: No MD Notified: Yes Date Notified: 04/20/22 Time Notified: 08:17 Method of Notification: Verbal Method of Consult:: In-Person Reason For Visit: UNSTABLE ANGINA,CARDIAC ARRYTHMIAS Diagnosis Discharge Diagnosis (1) SVT (supraventricular tachycardia): Status: Acute Code(s): I47.1 - Supraventricular tachycardia (2) Angina pectoris: Status: Chronic Code(s): I20.9 - Angina pectoris, unspecified (3) CAD (coronary artery disease): Status: Acute Code(s): I25.10 - Atherosclerotic heart disease of [place] coronary artery without angina pectoris (4) History of coronary artery stent placement: Status: Chronic Code(s): Z95.5 - Presence of coronary angioplasty implant and graft (5) Ischemic cardiomyopathy: Status: Chronic Code(s): I25.5 - Ischemic cardiomyopathy (6) Non-rheumatic mitral regurgitation: Status: Acute Code(s): I34.0 - Nonrheumatic mitral (valve) insufficiency (7) Paroxysmal atrial flutter: Status: Acute Code(s): I48.92 - Unspecified atrial flutter (8) Pure hypercholesterolemia: Status: Chronic Code(s): E78.00 - Pure hypercholesterolemia, unspecified (9) Essential hypertension: Status: Chronic Code(s): I10 - Essential (primary) hypertension (10) Tachycardia: Status: Acute Code(s): R00.0 - Tachycardia, unspecified Plan 1. [id number]-pgyiahb will be admitted to PCU, cardiac enzymes will be cycled, patient will undergo a cardiac catheterization today. At the present time, patient has no complaints of any chest pain #2 tachycardia-etiology unclear, possibly atrial flutter, this has converted to normal sinus with administration of adenosine and metoprolol in the emergency room. Patient had been taken off her Cardizem due to bradycardia-this was noted on a cardiology office visit dated 11/16/2021 #3 cardiomyopathy, felt to be ischemic in nature-patient's echocardiogram on 02/23/2022 showed an EF of 30%, there is moderate mitral valve insufficiency. Again patient will undergo cardiac catheterization to rule out occlusive coronary disease #4 coronary artery disease by history-again patient will undergo cardiac catheterization today, her home medications will be adjusted as needed by cardiology #5 hyperlipidemia-patient will remain on her home medication #6 elevated TSH-patient will need a T3 and T4 drawn, it appears that she is currently taking Synthroid 75 mcg daily. #7 paroxysmal atrial flutter-patient is on rate control medications at home, this may need to be readjusted in the hospital #8 hypercoagulable state secondary to #7-patient was on Eliquis up to a few days ago-she stopped this medication due to her upcoming cardiac catheterization today. This most likely will have to be restarted after the cardiac catheterization. Patient appears medically stable at this time, total clinical time spent by myself addressing the patient's medical issues, reviewing all the data, and collaborating with patient's care team: 75-minutes Medications at Discharge Home Medications Handicap anthony #1 ea 11/19/20 levothyroxine 75 mcg tablet 75 mcg PO DAILY thyroid 05/06/21 sertraline 50 mg tablet 50 mg PO DAILY ANXIETY 05/06/21 aspirin 81 mg tablet,delayed release 81 mg PO DAILY HEART 02/09/22 hydroxyzine HCl 50 mg tablet 50 mg PO QHS PRN Sleep 02/09/22 isosorbide mononitrate 120 mg tablet,extended release 24 hr 120 mg PO DAILY HEART 02/09/22 losartan 50 mg tablet 50 mg PO BID BP 02/09/22 nitroglycerin 0.4 mg sublingual tablet 0.4 mg sublingual Q5M PRN Chest Pain #25 tabs 02/25/22 furosemide 40 mg tablet 40 mg PO DAILY #135 tabs 02/26/22 amiodarone 400 mg tablet 400 mg PO DAILY 04/26/22 apixaban 2.5 mg tablet (Eliquis) 2.5 mg PO BID 04/26/22 atorvastatin 40 mg tablet 40 mg PO QHS 04/26/22 carvedilol 12.5 mg tablet 12.5 mg PO BID 04/26/22 dapagliflozin 10 mg tablet (Farxiga) 10 mg PO DAILY 04/26/22 estradiol 0.01% (0.1 mg/gram) vaginal cream (Estrace) 1 g vaginal 2XW 04/26/22 melatonin 10 mg tablet 10 mg PO QHS SLEEP 04/26/22 neomycin-polymyxin B-dexameth eye drops,suspension 1 drp ophthalmic (eye) TID 04/26/22 omeprazole 20 mg capsule,delayed release 20 mg PO DAILY GERD 04/26/22 spironolactone 25 mg tablet 12.5 mg PO DAILY 04/26/22 Hospital Course Operations None Procedures 2-D Echocardiogram and Cardiac catheterization Summary of Care Provided Minutes Spent on Discharge: 31 Hospital Course: This 81-year-old white female was seen in the emergency room at [facility] with complaints of pressure-like chest pain across her chest, she had been scheduled for a cardiac catheterization that day due to an abnormal echocardiogram which had been done as an outpatient, on evaluation in the ER, patient was noted to have a tachycardia, IV metoprolol was given by the emergency room physician in an attempt to control the tachycardia, this did not lower the heart rate significantly and adenosine was given with some lowering of the patient's heart rate. Patient's chest pain disappeared after the heart rate lowered, troponin was unremarkable, chest x-ray showed no active infiltrate, patient was started on an amiodarone bolus and drip at the request of cardiology, she was taken to the cardiac [facility] and underwent a cardiac catheterization which showed occlusive coronary disease in the LAD, the diameter of the LAD however was small and interventional cardiology did not feel comfortable with the patient undergoing stent placement here and requested the patient be transferred to tertiary facility. [facility] was contacted and agreed to take the patient, patient was admitted to PCU for short period of time and several hours later was transferred to [facility] stable condition. On 04/20/2022, patient was seen and examined: On examination she appeared in good health and spirits, she does not appear to be in any distress. Vital signs as documented. Skin warm and dry and without overt rashes. Neck without JVD, thyroid appears normal, trachea is midline, neck is supple. Lungs clear, normal air movement was noted. Heart exam notable for regular rhythm, normal sounds and absence of murmurs, rubs or gallops. Abdomen unremarkable and without evidence of organomegaly, masses, or abdominal aortic enlargement, bowel sounds are present in all 4 quadrants, no abdominal tenderness was noted. Extremities nonedematous, no cyanosis was noted, no clubbing was noted. Neuro: Cranial nerves II through XII are grossly intact, no focal motor deficits were noted, sensation to light touch and pinprick is intact, motor exam 5/5 throughout. Psych: Patient is alert and oriented x3, she does not appear anxious or depressed, she does not appear agitated. Patient was transferred in stable condition on 04/20/2022 Weight / BMI Weight Weight: 54.885 kg Body Mass Index (BMI) 21.4 ABG / Lab / Microbiology Data Result Diagrams: 04/20/22 05:55 04/20/22 05:55 Laboratory: Laboratory Results - last 24 hr 04/20/22 05:55: WBC 8.2, RBC 4.80, Hgb 13.6, Hct 43.4, MCV 90.4, MCH 28.3, MCHC 31.3 L, RDW Std Deviation 50.9 H, RDW Coeff of [place] 15.2 H, Plt Count 360, MPV 10.1, Immature Gran % (Auto) 0.200, Neut % (Auto) 59.5, Lymph % (Auto) 20.0, [place] % (Auto) 12.1 H, Eos % (Auto) 7.1 H, Baso % (Auto) 1.1 H, Absolute Neuts (auto) 4.9, Absolute Lymphs (auto) 1.64, Nucleated RBC % 0 04/20/22 05:55: Sodium 139, Potassium 3.8, Chloride 105, Carbon Dioxide 25.0, Anion Gap 9, BUN 23 H, Creatinine 1.02, Estim Creat Clear Calc 35.78, Est GFR (MDRD) Af Amer 67, Est GFR (MDRD) Non-Af 55 L, BUN/Creatinine Ratio 22.5 H, Glucose 118 H, Calcium 9.3, Magnesium 2.5, Troponin I High Sens 24, TSH 42.00 H 04/20/22 08:21: Troponin I High Sens 3069 H* Radiography Diagnostic Testing: Radiology Impression Chest X-Ray 04/20/22 05:48 IMPRESSION: No radiographic evidence of acute cardiopulmonary disease. Electronically Signed: Jak Medeiros MD at 6:19 EST , Meaningful Use Info Meaningful Use Diagnoses (Choose all that apply): AMI AMI/Post PCI/Angioplasty Aspirin given w/in 24hrs of arrival?: Yes ASA at discharge?: Yes Antiplatelet Therapy at Discharge:: Yes Statins at discharge?: Yes Alexx/ARB at discharge?: Yes Beta Siva at discharge?: Yes Done w/ Acute [place] measure.: Yes Documented LVEF (%): 25 Discharge Plan Admission Admit Date/Time: 04/20/22 08:07 Attending Provider: Miguel Angel Lanier Primary Care Provider: Kenji Osei Consulting Providers: Arnaud Mata Discharge Orders/Prescriptions Prescriptions: No Action sertraline 50 mg tablet 50 mg PO DAILY amiodarone 400 mg tablet 400 mg PO DAILY atorvastatin 40 mg tablet 40 mg PO QHS Farxiga 10 mg tablet 10 mg PO DAILY spironolactone 25 mg tablet 12.5 mg PO DAILY Eliquis 2.5 mg tablet 2.5 mg PO BID neomycin-polymyxin B-dexameth Drops,Suspension 1 drp ophthalmic (eye) TID estradiol [Estrace] 0.01 % (0.1 mg/gram) cream 1 g vaginal 2XW omeprazole 20 mg capsule,delayed release(DR/EC) 20 mg PO DAILY Label Comments: STOMACH MEDICINE, ACID REFLUX hydroxyzine HCl 50 mg tablet 50 mg PO QHS PRN (Reason: Sleep) Label Comments: TAKE 1 TABLET BY MOUTH AT BEDTIME NEEDED FOR ANXIETY/INSOMNIA aspirin 81 mg Tablet,Delayed Release (Dr/Ec) 81 mg PO DAILY losartan 50 mg tablet 50 mg PO BID isosorbide mononitrate 120 mg tablet extended release 24 hr 120 mg PO DAILY melatonin 10 mg tablet 10 mg PO QHS carvedilol 12.5 mg tablet 12.5 mg PO BID Rx Instructions: must administer with a meal/food (DME) Handicap placard See Rx Instructions .Route .MEDSUPPLY Qty: 1 0RF Rx Instructions: Lifetime levothyroxine 75 mcg tablet 75 mcg PO DAILY nitroglycerin 0.4 mg tablet, sublingual 0.4 mg SUBLINGUAL Q5M PRN (Reason: Chest Pain) Qty: 25 1RF furosemide 40 mg tablet 40 mg PO DAILY Qty: 135 3RF Referrals / Follow Up: Kenji Osei MD [Primary Care Provider] - Disposition Disposition (needs filled in before D/C Order can be placed): Acute Care Hospital Charges/Coding Visit Charges Inpatient E&M: 99071 Disch Hosp >30min
--- NOTE | 2022-04-20 21:17 | NURSING ---
Report called to Trixie at [facility]. Report also given to [facility].
== END 2022-04-20 21:22 | disposition short-term general hospital (02) | DRG 281 ==
LOC: ED 07:13 → PCU 12:35
PROVIDERS: Admitting Provider Internal Medicine; Emergency Provider Emergency Medicine; PCP Internal Medicine; Visit Provider Internal Medicine
DX: I21.4 Non-ST elevation (NSTEMI) myocardial infarction (principal); D68.59 Other primary thrombophilia; I48.92 Unspecified atrial flutter; I47.1 Supraventricular tachycardia; I25.110 Atherosclerotic heart disease of native coronary artery with unstable angina pectoris; E78.00 Pure hypercholesterolemia, unspecified; I25.5 Ischemic cardiomyopathy; I10 Essential (primary) hypertension; I34.0 Nonrheumatic mitral (valve) insufficiency; I25.2 Old myocardial infarction; R94.6 Abnormal results of thyroid function studies; Z95.5 Presence of coronary angioplasty implant and graft; Z79.01 Long term (current) use of anticoagulants; Z79.82 Long term (current) use of aspirin; Z79.899 Other long term (current) drug therapy
CPT/HCPCS: 71045; 80048; 83735; 84443; 84484; 85025; 93005; 93308; 93454; 99152; 99153; 99285; J7030; J7040; Q9967; A4216; C1769; C1894; J0153

== ENCOUNTER → 2022-04-20 | Outpatient (CLI) | payer MEDICARE, OTHER, SELFPAY ==
[2022-04-07 18:52] LABS: Anion Gap 6 (5-15); BUN 26 mg/dL (7-18); BUN/Creat Ratio 22.6 RATIO (10-20); Calcium,Total 8.7 mg/dL (8.5-10.1); Chloride 106 mmol/L (98-107); Creatinine, Serum 1.15 mg/dL (0.55-1.02); EST Glomerular Filtration Rate 48 mL/min (>60); Est Glom Filt Rate - Afr Amer 58 mL/min (>60); Glucose 100 mg/dL (74-106); Potassium 3.5 mmol/L (3.5-5.1); Sodium Level 141 mmol/L (136-145)
[2022-04-19 08:55] VITALS: BMI 22.8
--- NOTE | 2022-04-19 19:11 | HP.PCM_ITS ---
History and Physical Date of Admission: 04/20/22 [facility] [address] [place], [place] [address] OFFICE VISIT Date of Service:? 04/12/22 MR#: [id number] Acct: [id number] Name:? EVENS ORDOÑEZ Rep #: [id number] : 1940 ?Provider: ?GEOVANI Mcmahon Age/Sex:? 81/F Location: [facility] Status: Signed HPI HPI History of Present Illness Surgical H&P: Yes Details: This is an 81-year-old white female who presents today for an outpatient cardiovascular follow-up visit. She has a history of underlying CAD status post PCI, ischemic mediated cardiomyopathy, mitral valve regurgitation, hyperlipidemia, and hypertension.? Her previous noninvasive and invasive cardiovascular studies from 2019 were reviewed.? They are noted below. Her diltiazem was recently discontinued due to bradycardia. Her most recent Holter monitor demonstrated underlying rhythm appearing consistent with sinus rhythm, sinus bradycardia, sinus tachycardia, and paroxysmal atrial flutter.? Her average heart rate was 110 bpm, minimum heart rate was 50 bpm, and maximum heart rate 130 bpm. She underwent an echocardiogram on 02/23/2021 which demonstrated a decreased ejection fraction, and wall motion abnormality. The results are noted below. From a cardiac standpoint, the patient is doing well. She denies any palpitations, chest pain, pressure or heaviness. She does have SOB with exertion-walking longer distances. She states this is newer.? She denies Orthopnea, and PND. She does not have bleeding issues; no blood in urine, stool or nosebleeds. She does acknowledge fatigue-she states this has gotten worse since increasing her metoprolol. She denies myalgias, or claudication.? She does not have edema, or sudden weight gain. She denies dizziness, lightheadedness, syncopal or near syncopal episodes, and headaches. Intake Vital Signs ? 04/12/2314:32 04/12/2314:40 04/12/2314:46 Height 5 ft 3 in 5 ft 3 in ? Weight: ? 129 lb 6 oz ? BMI ? 22.8 ? BP ? 165/79 H 155/78 H Blood Pressure Location ? Lt brachial Lt brachial Position ? Sitting Sitting Respiration ? 18 ? Pulse ? 53 L ? Pulse Source ? Monitor ? Pulse Oximetry (%) ? 93 ? Oxygen Delivery Method ? room air ? Intake Visit Reasons:?1 m fu per KR Allergies morphine Adverse Reaction (Severe, Verified 04/12/22 15:37) Junctional rhythmlisinopril Adverse Reaction (Intermediate, Verified 04/12/22 15:37) Cough Medications Handicap placard #1 ea 11/19/20 [Rx Confirmed 04/12/22] levothyroxine 75 mcg tablet 75 mcg PO DAILY thyroid 05/06/21 [History Confirmed 04/12/22] sertraline 50 mg tablet 50 mg PO DAILY ANXIETY 05/06/21 [History Confirmed 04/12/22] apixaban 5 mg tablet (Eliquis) 5 mg PO BID BLOOD THINNER 02/09/22 [History Confirmed 04/12/22] aspirin 81 mg tablet,delayed release 81 mg PO DAILY HEART 02/09/22 [History Confirmed 04/12/22] hydroxyzine HCl 50 mg tablet 50 mg PO QHS PRN Sleep 02/09/22 [History Confirmed 04/12/22] isosorbide mononitrate 120 mg tablet,extended release 24 hr 120 mg PO DAILY HEART 02/09/22 [History Confirmed 04/12/22] losartan 50 mg tablet 50 mg PO BID BP 02/09/22 [History Confirmed 04/12/22] melatonin 10 mg tablet 20 mg PO QHS SLEEP 02/09/22 [History Confirmed 04/12/22] pravastatin 80 mg tablet 80 mg PO QHS CHOLESTEROL 02/09/22 [History Confirmed 04/12/22] nitroglycerin 0.4 mg sublingual tablet 0.4 mg sublingual Q5M PRN Chest Pain #25 tabs 02/25/22 [Rx Confirmed 04/12/22] furosemide 40 mg tablet 40 mg PO DAILY #135 tabs 02/26/22 [Rx Confirmed 04/12/22] omeprazole 20 mg capsule,delayed release 40 mg PO DAILY GERD 03/12/22 [History Confirmed 04/12/22] potassium chloride 20 mEq tablet,extended release 20 meq PO DAILY #90 tabs 03/19/22 [Rx Confirmed 04/12/22] metoprolol tartrate 75 mg tablet 75 mg PO BID HEART #180 tabs 04/05/22 [Rx Confirmed 04/12/22] PFSH Medical History?(Reviewed 04/12/22 @ 15:38 by Shobha Mcmahon CAREER TECHNICAL SUPERVISOR, CAREER TECHNICAL SUPERVISOR-C) Abnormal ECG Abnormal serum enzyme level Abnormal stress test Angina pectoris Atherosclerotic heart disease of [place]' coronary artery without angina pectoris Bladder prolapse Chest pain Essential hypertension History of coronary artery stent placement (~09/25/13) Hypothyroidism Ischemic cardiomyopathy alf use of drug Non-rheumatic mitral regurgitation Nonrheumatic mitral valve disorder NSTEMI (non-ST elevation myocardial infarction) Old myocardial infarction Pure hypercholesterolemia Tachycardia Surgical History?(Reviewed 04/12/22 @ 15:38 by Shobha Mcmahon CAREER TECHNICAL SUPERVISOR, CAREER TECHNICAL SUPERVISOR-C) Presence of coronary angioplasty implant and graft (~09/25/13) Family History? Mother Breast cancer Myocardial infarction CAD (coronary artery disease) DiabetesFather Myocardial infarction CAD (coronary artery disease)Brother Myocardial infarction Diabetes CAD (coronary artery disease)Sister Breast cancer Hypertension Social History? household members:? none Smoking Status:? Never smoker alcohol intake:? never substance use type:? does not use caffeine:? No what type of physical activity do you participate in:? walking frequency:? 3-4 times per week duration:? 45-60 minutes/day seatbelt use:? always do you feel safe at home:? Yes ROS Const Const: Positive for fatigue; Negative for weakness, fever(s), headache(s), chills, frequent falls, weight gain or weight loss Eyes Eyes: Negative for blind spots, loss of peripheral vision, transient loss of vision, blurry vision, change in vision, double vision, floaters or tunnel vision ENT ENT: Negative for headache(s), dizziness, Nosebleed/epistaxis, balance problems or neck pain Cardio Chest Pain: Yes Frequency: daily Character: other (pressure) Onset: exercise Location: other (across chest) Duration: minutes Relieving: other (nitro) Palpitations: No Edema: None Muscle aches with walking: None Resp Respiratory: Positive for SOB with activity; Negative for SOB at rest or SOB orthopnea\SOB lying down GI GI: Negative nausea, vomiting, heartburn, bloating, vomiting blood/hematemesis, bright, red blood in stools or black,tarry stools Musc Musc: Negative for muscle aches/ myalgia, muscle weakness, joint pain or balance problems Neuro Neuro: Negative for dizziness, lightheadedness, near syncope, syncope, orthostatic symptoms, frequent falls, headache(s), weakness, blurry vision or double vision Jovani Hematologic/Lymphatic: Negative for easy bleeding or easy bruising Endo Endo: Positive for fatigue Cardiology Exam Const Appearance: cooperative, healthy appearing, comfortable, no acute distress, well developed and well groomed Nutritional Appearance: average body habitus Orientation: alert, awake and oriented x3 Head Head: normal to inspection, normocephalic and atraumatic Ears: hearing grossly normal bilaterally Nose: external nose normal Face and Sinus: face symmetric Eyes Eyelids: eyelids normal Conjunctivae: conjunctivae normal Pupils: PERRL and pupil size EOM: EOM intact bilaterally Neck Neck: normal visual inspection and full ROM Carotids: normal carotid upstroke; Negative bruit Chest Chest inspection: normal inspection of the chest, symmetric chest movement and normal respiratory effort Auscultation: Bilateral: Clear to Auscultation Cardio Palpation: normal PMI Rate: bradycardic Rhythm: regular rhythm and ectopic beats Heart sounds: S1 normal, S2 normal and murmur; Negative rub or gallop Murmur: Grade 2/6, soft, mid systolic, LLSB, LVOT and sternal notch GI GI: normal to inspection and soft Neuro General: patient alert, patient awake, patient oriented x3 and moves all extremities Skin Skin: no rashes or lesions noted Extremities Pulses: Normal: Right Posterior Tibial Pulse, Left Posterior Tibial Pulse, Right Radial Pulse and Left Radial Pulse Lower Extremity Edema: None: Bilateral Psych Psychological: normal affect Supplemental Info Supplemental Information Transthoracic echocardiogram: 03/10/14 Interpretation Summary Limited views were obtained. Mild segmental systolic dysfunction (see wall motion). The estimated ejection fraction is 50 %. The left atrium is mildly enlarged. Mild focal aortic valve thickening. Mild focal aortic valve calcification. Echocardiogram: 11/16/2018 Interpretation Summary Left ventricular systolic function is normal. The estimated ejection fraction is 55 %. The left atrium is mildly enlarged. Mild-Moderate (1-2+) mitral valve insufficiency. Mild tricuspid valve insufficiency. Mild focal aortic valve thickening. Trivial pulmonic valve insufficiency. Right ventricular systolic pressure estimated to be 29 mmHg. No evidence for diastolic dysfunction. Echocardiogram 02/23/2022: Interpretation Summary Moderately severe global left ventricular systolic dysfunction. The estimated ejection fraction is 30 %. Moderate (2+) eccentric mitral valve insufficiency. Trivial tricuspid valve insufficiency. Mild focal aortic valve thickening. Mild focal aortic valve calcification. Trivial pericardial effusion. There are no echocardiographic indications of cardiac tamponade. Right ventricular systolic pressure estimated to be 22 mmHg. Stage 1 diastolic dysfunction. Stress Test Report Date: ? Procedure: Pharmacologic stress nuclear imaging study Indications: Chest pain; CAD; PCI Consent: Per the patient Procedure: The patient underwent pharmacologic (Regadenoson) evaluation with a peak heart rate of 87 beats per minute (60 %predicted maximal heart rate) and a peak blood pressure of 162/84 mmHg. The baseline ECG demonstrated sinus bradycardia; nonspecific T wave abnormality.? The peak pharmacologic ECG demonstrated no obvious ECG changes. There were no cardiac dysrhythmias pretest, during pharmacologic infusion, or recovery. There was no complaint of chest discomfort during pharmacologic infusion or recovery. The examination was discontinued secondary to completion of protocol. Impression: 1.? Pharmacologic (Regadenoson) evaluation 2.? Peak pharmacologic ECG with no obvious ECG changes. 3.? There were no cardiac dysrhythmias pretest, during pharmacologic infusion, or recovery. 4.? Nuclear images pending Myocardial perfusion imaging study: Technique: The patient was injected with 11.1 millicuries of technetium 99m Cardiolite and subsequently rest SPECT Cardiolite nuclear imaging was obtained in the horizontal long, vertical long, and short axis views. The patient underwent pharmacologic (Regadenoson) evaluation with a peak heart rate of 87 beats per minute (60 % percent predicted maximal heart rate) and a peak blood pressure of 162/84 mmHg. The patient was injected with 33.3 millicuries of technetium 99m Cardiolite and subsequently stress SPECT Cardiolite nuclear imaging was obtained in the horizontal long, vertical long, and short axis views.? A gated Cardiolite study at peak stress was obtained. Interpretation: Rest and stress SPECT Cardiolite nuclear imaging status post realignment, normalization, and attenuation correction demonstrate at rest relative uniform tracer uptake.? Status post stress there is notation of a small area of diminished tracer uptake in the mid anterior segments.? There is end systolic thickening and brightening.? The gated Cardiolite study demonstrates myocardial thickening and inward wall motion.? The reported LVEF is 79 %. Impression: 1.? Rest and stress SPECT cardio light nuclear imaging demonstrate myocardial perfusion changes compatible with an area of stress-induced myocardial ischemia in the mid anterior segments, however, an element of shifting soft tissue/artifact cannot necessarily be excluded.. 2.? The gated Cardiolite study reports an LVEF of 79 %. Cardiac catheterization: 10/25/2018 CORONARY ANGIOGRAPHY DOMINANCE:? Right Dominant LEFT HEART ASSESSMENT Left Ventricular Ejection Fraction: by LV Gram 55 % Normal LV wall motion Normal Left Ventricular End Diastolic Pressure LVEDP: 8 mmHg LEFT MAIN: Absent: Separate ostia to the LAD and LCX LEFT ANTERIOR DESCENDING ARTERY: PROX LAD: Previously placed stent is patent MID LAD: small caliber vessel: 85 % Stenosis with no significant change s/p IC NTG 200 mcg CIRCUMFLEX ARTERY: small caliber vessel: diffuse 95 % Stenosis RIGHT CORONARY ARTERY: PROX RCA: Previously placed stent is patent MID RCA: Previously placed stent is patent DISTAL RCA: Mild luminal irregularities VALVE FINDINGS: Normal Aortic Valve function Normal Mitral Valve function AORTIC ROOT: Angiographically normal Labs: ?? ? LDL Cholesterol 59 mg/dL (0-130) ?? ? HDL Cholesterol 56 mg/dL (40-) ?? ? Triglycerides 128 mg/dL (-199) ?? ? VLDL Cholesterol 26 mg/dL (5-40) Diagnostics: ?? ? Electrocardiogram ? Echocardiogram ? Stress Test NM ? Stress Test ? Cardiac Catheterization ? Chest X-Ray ? Pulmonary: ?? ? No Data to Display Assessment and Plan Assessment and Plan (1) Ischemic cardiomyopathy: ?Status:?Chronic ?Plan: Patient has a history of ischemic cardiomyopathy.? Her most recent echocardiogram from 02/23/2022 demonstrated a decreased ejection fraction of 30%, and stage I diastolic dysfunction. There was wall motion abnormality noted on her recent echocardiogram as well. After discussing this with Dr. Mata, patient will undergo a cardiac catheterization to further assess this on 04/20/2022. Cardiac catheterization instructions given to patient, and she verbalizes understanding.? At this time, she will continue with her current medical therapy: metoprolol tartrate 75mg twice daily, losartan 50mg twice daily, and furosemide 40mg daily. She will continue to monitor for any concerning symptoms. (2) Tachycardia: ?Status:?Acute ?Plan: Patient has a history of tachycardia. Her EKG from today demonstrates sinus bradycardia, heart rate 55bpm, occasional ectopic ventricular beats, incomplete right bundle branch block and anterior fascicular block, anterior infarct-age undetermined. At this time, she will continue with her current medical therapy, along with monitoring for any concerning symptoms. (3) History of coronary artery stent placement: ?Status:?Chronic ?Comment: PTCA/POLA from the mid to distal RCA and from the prox to mid RCA 09/25/13; ?Plan: Patient has a history of coronary artery disease with stent placement in 2013.? Her most recent cardiac catheterization from 2018 was reviewed with her. Her most recent echocardiogram from 02/23/2022 demonstrated a decreased ejection fraction of 30%, and wall motion abnormality. She does acknowledge increased fatigue, and not feeling well. After discussing this with Dr. Mata, patient will undergo a cardiac catheterization to further assess this. Cardiac catheterization instructions given to patient, she verbalizes understanding. She will continue with her current medical therapy, along with aggressive risk factor and lifestyle modifications. (4) Nonrheumatic mitral valve disorder: ?Status:?Chronic ?Plan: Patient has a history of nonrheumatic mitral valve disorder.? Her most recent echocardiogram from 02/23/2022 demonstrated moderate 2+ mitral valve insufficiency. She appears stable at this time. We will continue to monitor this with history, exam, and echocardiograms as deemed appropriate. (5) Pure hypercholesterolemia: ?Status:?Chronic ?Plan: Patient has a history of hypercholesterolemia.? Her PCP monitors this.? She will continue pravastatin 80 mg daily, along with aggressive risk factor and lifestyle modifications. (6) Essential hypertension: ?Status:?Chronic ?Plan: Patient has a history of hypertension.? Her blood pressure is elevated in the office today. She will continue with her current medical therapy, along with monitoring her blood pressures at home. She will notify our office of blood pressure readings in 2 weeks.? (7) Paroxysmal atrial flutter: ?Status:?Acute ?Plan: Patient has a history of paroxysmal atrial flutter.? Her most recent Holter monitor did demonstrate paroxysmal atrial flutter. Her EKG from today demonstrates sinus bradycardia, heart rate 55bpm, occasional ectopic ventricular beats, incomplete right bundle branch block and anterior fascicular block, anterior infarct-age undetermined.? She will continue Metoprolol 75mg twice daily, and Eliquis 5mg twice daily. She will hold her Eliquis 3 days prior to her cardiac catheterization, and resume afterwards. ? ? ? Orders: Orders 12 Lead EKG performed by [facility] Today I25.5 - Ischemic cardiomyopathy ? Left Heart Cath/COR/LV Percut Today I25.5 - Ischemic cardiomyopathy ? BNP,B-Type NATRIURETIC PEPTIDE Today R06.00 - Dyspnea, unspecified ? CBC W/Diff, Automated Today I25.5 - Ischemic cardiomyopathy ? Plan Details Additional Comments: Patient will follow up in 2-3 months, or sooner if needed. Thank you for allowing me to participate in the care of your patient. Please don't hesitate to call if any issues arise. This note was generated using a voice recognition system and there may be incorrect words, spelling, or punctuation that were not noted when reviewing the office note prior to saving. Portions of this documentation were copied and pasted from previous office visit notes to provide a cohesive continuity of the history. The note has been reviewed, edited, and updated, as necessary. Follow Up: ? ? 2-3 Months (CAREER TECHNICAL SUPERVISOR/PA) COVID (Procedure Consent) Procedure Criteria Procedure Criteria: Yes Elective The surgeon/proceduralist and patient have discussed in detail the risk of exposure to and/or potential harm posed by the COVID-19 virus with having a surgery/procedure at this time versus the risk of? delaying the surgery/procedure. It is not possible to know either the risk of delaying the surgery or procedure or chance of getting an infection with perfect accuracy, but a joint decision was made between the patient and the surgeon/proceduralist ?to proceed at this time with the scheduled surgery/procedure as indicated on the consent form. Coding Level of Care Code Off vis,est,level 4 Diagnoses Ischemic cardiomyopathy? I25.5 Tachycardia? R00.0 History of coronary artery stent placement? Z95.5 Nonrheumatic mitral valve disorder? I34.9 Pure hypercholesterolemia? E78.00 Essential hypertension? I10 Paroxysmal atrial flutter? I48.92 Coding Level of Care Code Off vis,est,level 4 Diagnoses Ischemic cardiomyopathy? I25.5 Tachycardia? R00.0 History of coronary artery stent placement? Z95.5 Nonrheumatic mitral valve disorder? I34.9 Pure hypercholesterolemia? E78.00 Essential hypertension? I10 Paroxysmal atrial flutter? I48.92 04/12/22 1625 <Electronically signed by Shobha MARKSC> Date Shobha Mcmahon NP CAREER TECHNICAL SUPERVISOR-C Cosigner Signature: Date (if applicable) CC:? Dr. Kenji Osei MD ~ Assessment & Plan Addt'l Comments Addendum: 04/20/2021 I have examined the patient the following changes are noted: Please see the [facility] cardiovascular consultation from this day. This note was generated using a voice recognition system and there may be incorrect words, spelling or punctuation that were not noted when reviewing the office note prior to saving.
== END | disposition home or self-care (01) ==
LOC: PAT 05-10 16:23
PROVIDERS: Nurse Practitioner Gerontology; PCP Internal Medicine; Visit Provider Internal Medicine Cardiovascular Disease
DX: I25.5 Ischemic cardiomyopathy (principal); R94.31 Abnormal electrocardiogram [ECG] [EKG]
CPT/HCPCS: 36415; 80048

== ENCOUNTER → 2022-06-11 | Outpatient (CLI) | payer MEDICARE, OTHER, SELFPAY ==
--- NOTE | 2022-06-11 13:12 | PCM.CR.HP2 ---
CR - History & Physical - General Arrival date:: 06/11/22 Arrival time:: 13:13 Date of Referral:: 05/27/22 Date of CR Evaluation:: 06/11/22 Referring Physician: Dr. David Mcdonald Primary Diagnosis: PTCA with stenting - History of Present Cardiac Event Onset Date: Enter Onset Date of cardiac illnesses in Comment field below PTCA or coronary stenting:: Yes - 05/26/22 - Sleep Disorder Evaluation Hx of Sleep Apnea: No Do you snore loudly (louder than talking or can be heard through closed doors)?: No Do you often feel tired/ fatigued/ sleepy during daytime?: No Has anyone observed you stop breathing during sleep?: No History of Hypertension (for STOP score): Yes STOP Results: Negative - Medications Home Medications: Ambulatory Orders Medication Instructions Recorded Eduarda cruz #1 ea 11/19/20 levothyroxine 75 mcg tablet 75 mcg PO DAILY thyroid 05/06/21 sertraline 50 mg tablet 50 mg PO DAILY ANXIETY 05/06/21 aspirin 81 mg tablet,delayed 81 mg PO DAILY HEART 02/09/22 release hydroxyzine HCl 50 mg tablet 50 mg PO QHS PRN Sleep 02/09/22 nitroglycerin 0.4 mg sublingual 0.4 mg sublingual Q5M PRN Chest 02/25/22 tablet Pain #25 tabs furosemide 40 mg tablet 40 mg PO DAILY #135 tabs 02/26/22 apixaban 2.5 mg tablet (Eliquis) 2.5 mg PO BID 04/26/22 atorvastatin 40 mg tablet 40 mg PO QHS 04/26/22 estradiol 0.01% (0.1 mg/gram) 1 g vaginal 2XW 04/26/22 vaginal cream (Estrace) melatonin 10 mg tablet 10 mg PO QHS SLEEP 04/26/22 neomycin-polymyxin B-dexameth eye 1 drp ophthalmic (eye) TID 04/26/22 drops,suspension omeprazole 20 mg capsule,delayed 20 mg PO DAILY GERD 04/26/22 release amiodarone 200 mg tablet 200 mg PO DAILY dose reduced at 05/04/22 [facility]. carvedilol 12.5 mg tablet 6.25 mg PO BID 05/04/22 isosorbide mononitrate 60 mg 60 mg PO DAILY 05/04/22 tablet,extended release 24 hr - Allergies Allergies/Adverse Reactions: Allergies morphine Adverse Reaction (Severe, Verified 04/12/22 15:37) Junctional rhythm lisinopril Adverse Reaction (Intermediate, Verified 04/12/22 15:37) Cough Advanced Directives - Advanced Directives Power of Prosthetics Assistant: Yes Living Will: Yes Advance Directives Information Provided: Yes Advance Directives on File: No DNR Order?:: No - MOLST See MOLST form: No Past Medical History - Covid-19 Screening 65 years or older:: Yes Has a serious heart condition:: Yes - Past Medical Illness Medical History: Past Medical History (Last Reviewed 04/20/22 @ 05:[address] 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 Chase Whiting MD) Presence of coronary angioplasty implant and graft Onset Date: ~09/25/13 Z95.5 PTCA/POLA from the mid to distal RCA and from the prox to mid RCA 09/25/13 Surgical History: noncontributory - Family History Summary Family History: Family History (Last Reviewed 04/20/22 @ 05:[address] Chase Whiting MD) Mother Breast cancer Myocardial infarction CAD (coronary artery disease) Diabetes Father Myocardial infarction CAD (coronary artery disease) Brother Myocardial infarction Diabetes CAD (coronary artery disease) Sister Breast cancer Hypertension Social History - Smoking History Smoking Status: Never smoker - Occupation Occupation (List type of work in comments):: Retired - Hobbies, Recreation, Social Activities Hobbies: Other - bingo, cards Recreational Activities: I am able to engage in all my recreational activities Social Environment - Status Marital Status: - Current Living Arrangements Living Environment:: Alone - Children How many children do you have?: 2 Do any of your children live nearby?: Yes - Safety Do you feel safe in your surroundings?: Yes - Assistance Do you need any assistance at home?: no Review of Systems - Review of Systems Hints: Right click = Denies (Slash). Left click = Reports (Boss) Review of Present Symptoms: Reports: Fatigue, Appetite - Normal, Appetite - Special Diet. Denies: Shortness of Breath at Rest, Shortness of Breath with Exertion, PVD, Operative Discomfort, Angina, Wound Healing, Dizziness/Lightheadedness, Heart Arrhythmia/Irregularities, Sleep - Normal, Sexual Changes - Pain Is Patient Pain Free?: Yes Risk Factor Assessment - Vital Signs Pulse Ox: 94 Blood Pressure: 114/55 - Pulse Pulse Rate: 66 Pulse Rhythm: Regular - Obesity Height: 5 ft 2.99 in Weight:: 54.431 kg Weight in Pounds: 120.0 lbs Body Mass Index (BMI): 21.2 Nutritional Referral for Obesity: No - Physical Inactivity Physical Inactivity: Recreational activity - Risk Stratification Risk Guidelines: Moderate Risk: Risk Factor for Smoking, Risk Factor for Diabetes, Risk Factor for Obesity, Risk Factor for Sedentary Lifestyle, Risk Factor for Depression, Highest Risk: Risk Factor for Dyslipidemia, Risk Factor for Hypertension - Family History Family History: Family History (Last Reviewed 04/20/22 @ 05:[address] Chase Whiting MD) Mother Breast cancer Myocardial infarction CAD (coronary artery disease) Diabetes Father Myocardial infarction CAD (coronary artery disease) Brother Myocardial infarction Diabetes CAD (coronary artery disease) Sister Breast cancer Hypertension Motivation - Motivation to Participate On a scale of 1 to 10, how prepared are you to commit to attending program?: 8 What do you see as barriers to successfully being able to complete the program?: scheduling What do you see as the benefits of succesfully completing the program? In other words, what do you hope to get out of participating in the program?: more energy Are there issues you are dealing with that will interfere with completing the program?: no Do you have a spouse or signficant other, family or friends who will help support you to complete the program?: yes
[2022-06-11 13:52] VITALS: BP 114/55; PULSE 66; O2SAT 94; BMI 21.2
--- NOTE | 2022-06-11 13:53 | CR.ITP_ITS ---
Diagnosis - General Information Admitting Diagnosis: PTCA with stenting Personal Learning Style:: Audio/Visual Stage of change r/t lifestyle modifications:: Contemplation Gave educational material for:: Treating Heart Disease, Emotions & Heart Di sease, Stress Management & Relaxation, Sleep Disorders & Heart Disease, How The Heart Works, What it means to have Heart Disease, How Coronary Artery Disease is Diagnosed, Heart Procedures, What Heart Medications Do, Risk Factors & Modifications, Living an Active Life, Nutrition - Education/Goals Cardiac Rehabilitation Goals: 1. Maintain the individual as the primary focus of care. 2. To improve the patient's quality of life. 3. Identification of cardiac risk factors and provide cardiac risk factor management. 4. Enhance the psychosocial status of the patient. 5. Reconditioning enough to allow the patient to resume customary activities. 6. Control symptoms of cardiac disease Personal Goals: Initial Assessment: Improve management of stress and emotions, Improve energy level, Participate in home exercise program, Get back to work, or to resume activities faster, Improve knowledge of cardiac disease, Improve muscle strength and endurance Scale for measuring improvement of personal goals: Enter appropriate number in Comments. 2 = Unchanged. 3 = Slightly Better. 4 = Moderate Improvement. 5 = Met my Goal - Diagnosis & Disease Process Outcomes/Goals: Pt IDs own risk factors & lifestyle modifications by Session 10, Verbalizes symptoms of angina & response by session 3., Pt independently manages, Other Additional Outcomes/Goals: Plan/Interventions: Assist Pt to ID & engage in lifestyle modification to reduce CVD risk, Instruct on individual risk factors, Review symptoms of angina & emergency actions, Review secondary diagnosis & identify educational needs., Other see comment 30 day Reassessments:: Not Met 30 day Reassessments:: Not Met 30 day Reassessments:: Not Met 30 day Reassessments:: Not Met - Safety Referral to Physical Therapy: No Referral to [facility] Case Management: No Fall Risk Assessed:: Yes Assistive Devices:: None Exercise - Initial Assessment - Visit Date of Eval: 06/11/22 - initial eval Mets: Pre-: >3 METS for 30 minutes by discharge, >5 METS for 30 minutes by discharge, >7 METS for 30 minutes by discharge, Unable to meet goal due to: (see comment below) - Physician Prescribed Exercise Modalities: Treadmill, Rower, Airdyne, NuStep, SciFit, Lateral [place] Frequency: 2x/week for 18 weeks [36 sessions], 3x/week for 12 weeks [36 s essions] Intensity: 60-80% of age predicted maximum heart rate reserve Current METSs:: 3.0 Resting Blood Pressure: 114/55 EKG Type: NSR - Outcomes & Goals Goals:: Verbalizes understanding of THR, RPE & goal METS by session 6, Documents in home exercise log/reports 30 min aerobic 5 day/wk by DC, Demonstrates accurate pulse taking by DC, Other additional outcome/goals: see below - Intervention & Plan Exercise Program Goals: Instruct on personal THR & RPE, Instruct on MET level & personal MET goal, Show patient to take own pulse /validate performance until accurate, Instruct on home exercise, Other additional plan/int - Physical Activity Home Exercise Physical Activity - Home Exercise: Safe Exercise, Warm-up, Self-monitoring, Cool-Down, Home Exercise > 30 min Daily, Sitting Time <3 hours/daily - Outcomes & Goals Outcomes/Goals: Demonstrates correct Warm-up/exercise Cool-Down (S3) if = 2.5 METs, Verbalizes symptoms of exercise intolerance by Session 3 (S3), Demonstrate safe equipment use (S3) & follows exercise prescrition (6), Other: See below - Intervention & Plan Plan/Intervention: Instruct warm-up & cool-down if exercising at > 2 METs, Instruct on symptoms of exercise intolerance & actions to take, Instruct & monitor on saf, Assess intial functional capacity & safety risk, Other See below Nutrition - Initial Assessment - Program Goals Nutrition Program Goals: LDL <100 optimal. 100 - 129 Near optimal. 130 - 159 Borderline High. 160 - 189 High. Total Cholesterol <200 desirable. 200 - 239 Borderline High. >/= 240 High. HDL < 40 Low >/=60 High. Triglycerides <150 desirable. <199 optimal. VlDL 5 - 40. HgbA1C <7%. BMI <25 Patient has diagnosis of Hyperlipidemia (ICD E78)?: Yes - Visit Date of Assessment:: 06/11/22 - initial eval - Cholesterol/Lipids (Other Core Measures) Determine presence & major risk factors that modify LDL goal: Hypertension or hypertensive medication, Low HDL cholesterol <40 mg/dL*, Family history of premature CHD in Male < 55 years: female <65 yearsFa, Age men > 45 years; women >/= 55 years Outcomes/Goals: Pt IDs own risk factors & lifestyle modifications by Session 10, Verbalizes symptoms of angina & response by session 3., Pt independently manages, Other Additional Outcomes/Goals: Intervention/Plan: Advocate for lipid panel cholesterol medication if applicable, Instruct on personal lipid levels & lipid goals/NCEP guidelines, Instruct on cholesterol, Other additional plan/int Referral to dietitian:: No - declines - Diabetes (Other Core Measures) Diabetes Type: Not Applicable - Weight Mgt (Other Care) Height: 5 ft 2 in Weight:: 54.431 kg BMI: 21.9 Diagnosis Overweight/Obesity BMI> 30% ICD-10 E66: No Diagnosis High BMI/Morbid Obesity BMI> 35% ICD-10 Z68: No Outcomes/Goals: Pt sets, maintains & shows weight loss goal & trend during rehab, Other additional outcomes/goals Intervention/Plan: Instruct on ideal BMI & set weight loss goal w/patient, Assist pt to ID & incorporate diet changes for weight loss by S9, Refer to Structured Weight Loss program as appropriate, Encourage goal of using 250- 300dcal per session for weight loss, Other additional plan/interventions - Healthy Eating Habits Will attend diet classes:: Yes Outcomes/Goals:: Consume diet rich in vegs,fruits,whole grain/high fiber,fish,lean meat, Limit sat/trans fats,cholesterol & added salts & sugars, Other additional outcome/goals: Intervention/Plan:: Assess current eating habits, Other Additional plan/interventions - Education Gave educational materials for:: Signs & symptoms of hypoglycemia, Signs & symptoms of hyperglycemia, Relate diabetes to coronary artery disease, Healthy eating Nutrition - 30-Day Assessment Nutrition - 60-Day Assessment Nutrition - 90-Day Assessment Nutrition - Final Assessment Core - Initial Assessment - Visit Date of Eval: 06/11/22 - initial eval - Medication Compliance Preventative Medication(s):: Statin/lipid, Beta shruti, Eliquis Doesn?t believe in the benefits of treatment?: No Believes medications are unnecessary or harmful?: No Has a concern about medication side effects?: No Expresses concern over the cost of medications?: No Outcomes/Goals: Verbalizes medications,desired effect & common side effects @ DC, Pt self-reports following medication regimen, Keeps card in wallet w/medications listed by DC, Other additional outcome/goals: Interventions/plans: Instruct on medication effects & side effects, Review medication list w/patient every two weeks, Instruct importance of taking meds as ordered & assist problem solving, Other additional - Tobacco Use Tobacco Use: Non-smoker Do you use smokeless tobacco?: No - Hypertension Hypertension Diagnosis:: Hypertension ICD-10 I10 Resting Blood Pressure:: 114/55 [place] [employer] Hypertension Guidelines: [place] [employer] Hypertension Guidelines. Normal BP Less than 120/80. Elevated BP 120/80. Hypertension Stage 1: BP 130-139/80-89. Hypertesnion Stage 2: BP 140 or higher/90 or higher. Hypertension Crisis: BP higher than 180/120 Outcomes/Goals: Able to verbalize/achieve optimal blood pressure <130/80, Incorporates diet changes & exercise for blood pressure control by DC, Other additional outcomes/goals Interventions/plan: Instruct on optimal blood pressure, hypertension & medications, Instruct on effects of sodium, alcohol, stress, exercise &hypertension, Other additional plan/interventions - Tobacco Cessation Referral Smoking Cessation Referral:: No Individual Education/Counseling:: No Education Schedule Given:: Yes Core - 30-Day Assessment Core - 60-Day Assessment Core - 90 Day Assessment Core - Final Assessment Psychosocial - Initial Assess - VIsit Date of Eval: 06/11/22 - initial eval History of previous Mental disease:: Yes - pt is on meds and doing fine History of Emotional Disorders: Anxious - Psychosocial Test Tool Used:: [employer] Power QOL Cardiac, PHQ-9 Questionnaire phq-9 Severity: Severity. 1-4 Minimal Depression. 5-9 Mild Depression. 10-14 Moderate Depression. 15-19 Moderately Sever Depression. 20-27 Severe Depression. Rule: - Outcomes/Goals: See list Psychosocial Outcomes/Goals:: ID's personal stressors & 2 strategies to manage stress by discharge, Other Additional outcome/goals: - Intervention/Plan: See List Interventions/Plan:: Assess stressors,coping strategies & signs of derpression on admission, Instruct/assist pt to develop coping & personal stress Mgt strategies, Refer to Behavioral Health if appropriate, Refer to Physician if appropriate, Instruct patient to recognize signs & symptoms of depression, Instruct patient to recog, Other additional plan/intervention Psychosocial - 30-Day Assess Psychosocial - 60-Day Assess Psychosocial - 90-Day Assess Psychosocial - Final Assessmen Patient Health Questionnaire Initial Assessment 1. Little interest or pleasure in doing things: Not at all 2. Feeling down, depressed, or hopeless: Not at all 3. Trouble falling or staying asleep, or sleeping too much: Several days 4. Feeling tired or having little energy: Several days 5. Poor appetite or overeating: Not at all 6. Feeling bad about yourself -- or that you are a failure or have let yourself or your family down: Not at all 7. Trouble concentrating on things, such as reading the newspaper or watching television: Not at all 8. Moving or speaking so slowly that other people could have noticed. Or the opposite - being so fidgety or restless that you have been moving around a lot more than usual: Not at all 9. Thoughts that you would be better off , or of hurting yourself in some way: Not at all How difficult have these problems made it for you to do your work, take care of things at home, or get along with other people?: Somewhat difficult Total Score: 2 DAMARIS-Q SV Test - Statements CAD is a disease of the arteries in the heart: True Examples of risk factors for heart disease: True Angina is chest pain or discomfort: True The benefits of resistance training include: False Eating more meat and dairy products: True Anti-platelet medications such as aspirin are important: True The only effective way to manage stress: True An exercise warm-up slowly increases heart rate: True Prepared, processed foods usually have high sodium: True Depression is common after a heart attack: True The statin medications lower cholesterol: True To control blood pressure, lower the amount of sodium: True If someone gets chest discomfort during walking: I Don't Know Transfats are partially hydrogenated vegetable oils: True Sleep apnea that is not treated increases the risk: True To control cholesterol, one should become a vegetarian: I Don't Know Someone knows if he/she is exercising at the right level: True Diabetes cannot be prevented with exercise & health eating: True Stress is a large risk for heart attack: True A diet that can help lower blood pressure is rich in: True - Total Score Total Correct Responses: 12 Self-Efficacy Initial Assessment We would like to know how confident you are in doing certain activities. Please select your confidence level for:: Select your confidence level for the following using the scale 1-10 where 1 is not at all confident and 10 is totally confident. Your score is the average of all 6 responses. Fatigue: How confident are you that you can keep the fatigue caused by your disease from interfering with the things you want to do? Select Number: 8 Physical Discomfort or Pain: How confident are you that you can keep the physical discomfort or pain of your disease from interfering with the things you want to do? Select Number: 10 Emotional Distress: How confident are you that you can keep the emotional distress caused by your disease from interfering with the things you want to do? Select Number: 8 Other Symptoms or Health Problems: How confident are you that you can keep other symptoms or health problems from interfering with the things you want to do? Select Number: 9 Different Tasks and Activities: How confident are you that you can do the different tasks and activities needed to manage your health condition so as to reduce your need to see a doctor? Select Number: 8 Medication: How confident are you that you can do things other than just taking medication to reduce how much your illness affects your everyday life? Select Number: 9 Total Score:: 8 Nutrition Survey - Nutrition Survey Initial Have you lost >10 lbs over the past 2 months without trying?: No Are you following a special diet at home for diabetes, low fat, or low salt?: No Are you interested in meeting with a dietitian for help understanding your diet?: No Do you eat less than 3 meals a day?: No Do you eat fatty meats (solano, sausage, ribs, etc), fried foods, desserts, large amounts of salad dressings, margarine, butter, or cheese most days?: No Do you have food allergies? [Enter types in comment field]: No Do you eat in restaurants more than 3 times a week?: Yes Do you season food with salt, seasoning salt, or garlic salt?: No Do you used canned, boxed, frozen meals, or soups, seasoning packets?: Yes Total Score:: 2
[2022-06-11 14:11] VITALS: BP 114/55; BMI 21.9
== END | disposition home or self-care (01) ==
LOC: CR 13:07
PROVIDERS: PCP Internal Medicine; Referring Provider Internal Medicine Interventional Cardiology; Visit Provider Internal Medicine Interventional Cardiology
DX: Z95.5 Presence of coronary angioplasty implant and graft (principal)

== ENCOUNTER 2022-06-13 14:09 | Emergency (ER) | payer MEDICARE, OTHER, SELFPAY ==
[2022-06-11 14:11] VITALS: BMI 21.9
[2022-06-13 14:09] VITALS: BP 103/78; PULSE 51; RESP 18; TEMP 36.6; O2SAT 99; BMI 22.6
[2022-06-13 14:24] VITALS: BP 118/57; PULSE 48; RESP 16; O2SAT 97
--- NOTE | 2022-06-13 14:24 | EKG12_ITS ---
Test Reason : Blood Pressure : / mmHG Vent. Rate : 049 BPM Atrial Rate : 049 BPM P-R Int : 168 ms QRS Dur : 094 ms QT Int : 538 ms P-R-T Axes : 029 -61 133 degrees QTc Int : 485 ms Sinus bradycardia Pulmonary disease pattern Left anterior fascicular block Minimal voltage criteria for LVH, may be normal variant ( [place] product ) ST & T wave abnormality, consider anterolateral ischemia Prolonged QT Abnormal ECG Confirmed by BRITTANY OWENS, AYANNA ([id number]), production editor DAVID SMITH ([id number]) on 06/14/2022 11:38:37 AM Referred By: JOSE Confirmed By:AYANNA SOTO MD
--- NOTE | 2022-06-13 14:24 | RAD_ITS ---
INDICATION: pain EXAMINATION/TECHNIQUE: X-RAY - portable upright AP chest x-ray COMPARISON: 04/20/2022 FINDINGS: LINES/DEVICES: None. LUNGS: No consolidation, edema or effusion. No pneumothorax. MEDIASTINUM AND CARDIOVASCULAR STRUCTURES: Stable cardiomegaly. BONES AND SOFT TISSUES: No acute changes. RAD/Chest 1 View (Portable) IMPRESSION: Cardiomegaly without radiographic evidence of acute cardiopulmonary disease. Electronically Signed: Vincent Garcia MD at 15:34 EDT ,
[2022-06-13] MEDS: 0.9% Normal Saline 1,000 ML 1000 ML IV (14:46)
[2022-06-13 14:57] LABS: Absolute Lymphocyte Count 1.12 X10^3/uL (0.83-4.51); Absolute Neutrophil Count 5.7 X10^3/uL (2.0-7.7); Basophil# 0.08 X10^3/uL; Eosinophil# 0.47 X10^3/uL; Eosinophils% 5.7 % (0-5); Hematocrit 41.1 % (37-47); Lymphocyte # 1.12 X10^3/ul (0.83-4.51); Lymphocyte % 13.6 % (19-41); Mean Corp Hgb Conc 31.6 g/dL (32-36); Mean Corpuscular Hgb 29.1 pg (27.0-32.0); Mean Corpuscular Volume 91.9 fL (81-99); Mean Platelet Vol. 8.9 fl (6.2-12.0); Monocyte# 0.88 X10^3/uL; Monocyte% 10.7 % (0-10); NRBC Flagged by Analyzer 0 % (0-5); Neutrophil # 5.68 X10^3/uL (2.7-7.7); Neutrophil % 68.6 % (47-70); Platelet Count 314 K/mm3 (150-450); RBC Distribution Width CV 14.1 % (11.6-14.6); Red Blood Count 4.47 M/mm3 (4.2-5.4); White Blood Count 8.3 K/mm3 (4.4-11.0)
--- NOTE | 2022-06-13 15:07 | EDS_ITS ---
HPI History of Present Illness Chief Complaint: Dizziness Informant: patient Onset/Context/Timing Onset: Today Narrative Narrative: Patient presents secondary to dizziness and near syncope. She had a cardiac stent placed at [facility] earlier this month. She states that she has been having trouble controlling her heart rate and blood pressure. Her blood pressure has been running anywhere from 140s to 200s systolic and her heart rate has been running in the 50s to 90s. She states she has had a mild headache the past 2 days. She has been taking Tylenol for it. About an hour prior to arrival she was playing [employer] and suddenly felt lightheaded and as if she was going to pass out. She denies chest pain or palpitations. On arrival to the emergency room heart rate is documented at 51 bpm and blood pressure of 103/78. Patient does note that she just started a new blood pressure medication, amlodipine, 3 or 4 days ago. Even after starting the new blood pressure medication her systolic blood pressure has been running in the 160s when she checks it at home. [facility] Medical History Abnormal ECG Abnormal serum enzyme level Abnormal stress test Angina pectoris Atherosclerotic heart disease of [place] coronary artery without angina pectoris Bladder prolapse Chest pain Essential hypertension History of coronary artery stent placement (~09/25/13) Hypothyroidism Ischemic cardiomyopathy longterm use of drug Non-rheumatic mitral regurgitation Nonrheumatic mitral valve disorder NSTEMI (non-ST elevation myocardial infarction) Old myocardial infarction Pure hypercholesterolemia Tachycardia Home Medications Handicap placard #1 ea 11/19/20 [Rx Last Taken Unknown] levothyroxine 75 mcg tablet 75 mcg PO DAILY thyroid 05/06/21 [History Last Taken 02/09/22] sertraline 50 mg tablet 50 mg PO DAILY ANXIETY 05/06/21 [History Last Taken 02/08/22] aspirin 81 mg tablet,delayed release 81 mg PO DAILY HEART 02/09/22 [History Last Taken 04/20/22 0430] hydroxyzine HCl 50 mg tablet 50 mg PO QHS PRN Sleep 02/09/22 [History Last Taken 02/08/22] nitroglycerin 0.4 mg sublingual tablet 0.4 mg sublingual Q5M PRN Chest Pain #25 tabs 02/25/22 [Rx Last Taken 04/20/22 04:30] apixaban 2.5 mg tablet (Eliquis) 2.5 mg PO DAILY 04/26/22 [History Last Taken Unknown] estradiol 0.01% (0.1 mg/gram) vaginal cream (Estrace) 1 g vaginal 2XW 04/26/22 [History Last Taken Unknown] melatonin 10 mg tablet 10 mg PO QHS SLEEP 04/26/22 [History Last Taken Unknown] neomycin-polymyxin B-dexameth eye drops,suspension 1 drp ophthalmic (eye) TID 04/26/22 [History Last Taken Unknown] omeprazole 20 mg capsule,delayed release 20 mg PO DAILY GERD 04/26/22 [History Last Taken Unknown] amiodarone 200 mg tablet 200 mg PO DAILY dose reduced at [facility]. 05/04/22 [History Last Taken Unknown] carvedilol 12.5 mg tablet 12.5 mg PO BID 05/04/22 [History Last Taken Unknown] isosorbide mononitrate 60 mg tablet,extended release 24 hr 60 mg PO DAILY 05/04/22 [History Last Taken Unknown] acetaminophen 325 mg tablet (Tylenol) 650 mg PO Q6H PRN Pain 06/13/22 [History Last Taken Unknown] calcium carbonate 600 mg calcium (1,500 mg) tablet 600 mg PO BID 06/13/22 [History Last Taken Unknown] clopidogrel 75 mg tablet 75 mg PO DAILY 06/13/22 [History Last Taken Unknown] losartan 50 mg tablet 50 mg PO BID 06/13/22 [History Last Taken Unknown] pravastatin 80 mg tablet 80 mg PO DAILY 06/13/22 [History Last Taken Unknown] spironolactone 25 mg tablet 12.5 mg PO DAILY 06/13/22 [History Last Taken Unknown] Allergy/AdvReac Type Severity Reaction Status Date / Time morphine AdvReac Severe Junctional Verified 06/13/22 14:10 rhythm lisinopril AdvReac Intermediate Cough Verified 06/13/22 14:10 Family History Mother Breast cancer Myocardial infarction CAD (coronary artery disease) Diabetes Father Myocardial infarction CAD (coronary artery disease) Brother Myocardial infarction Diabetes CAD (coronary artery disease) Sister Breast cancer Hypertension Surgical History Presence of coronary angioplasty implant and graft (~09/25/13) Social History household members: none Smoking Status: Never smoker alcohol intake: never substance use type: does not use caffeine: No what type of physical activity do you participate in: walking frequency: 3-4 times per week duration: 45-60 minutes/day seatbelt use: always do you feel safe at home: Yes ROS ROS ED Constitutional Constitutional ED: Denies chills or fever(s) Eyes Eyes: Denies change in vision or discharge from eye(s) ENT ENT ED: Denies discharge from eye(s), rhinorrhea or sore throat Cardiovascular Cardiovascular: Denies chest pain or palpitations Respiratory/Chest Respiratory/Chest: Denies cough or dyspnea Gastrointestinal Gastrointestinal: Denies abdominal pain, nausea or vomiting Genitourinary Genitourinary ED: Denies dysuria Musculoskeletal Musculoskeletal: Denies back pain or extremity pain Integumentary Denies Abrasions or rash Neurologic Neurologic: Reports headache(s); Denies weakness Psychiatric Psychiatric: Denies anxiety or depression Allergic/Immunologic Allergic/Immunologic ED: Denies lip swelling or urticaria EXAM Physical Exam Const Vital Signs: 06/13/22 14:09 06/13/22 14:24 06/13/22 16:09 Temperature 98 F Temperature Source Temporal Pulse Rate 51 L 48 L 53 L Respiratory Rate 18 16 15 Blood Pressure 103/78 118/57 L 155/59 H Blood Pressure Mean 86 77 91 Pulse Ox 99 97 96 Oxygen Delivery Method Room Air Room Air Room Air 06/13/22 16:32 06/13/22 17:08 Temperature Temperature Source Pulse Rate 54 L 54 L Respiratory Rate 14 15 Blood Pressure 133/48 H 134/56 H Blood Pressure Mean 76 82 Pulse Ox 96 96 Oxygen Delivery Method Room Air Room Air Positive well nourished and well developed General Appearance ED: well developed and pallor HEENT Reports normocephalic and head/scalp atraumatic Eyes PERRL and EOMs intact bilaterally Neck supple Chest Wall inspection of chest normal and palpation of chest normal Resp normal respiratory effort and clear to auscultation bilaterally Cardio regular rhythm Rate: bradycardia GI normal to inspection, nondistended, normoactive bowel sounds Palpation: soft Extremity normal to inspection Neuro oriented x3 Neuro Narrative: No focal neurologic deficits. Sensorium / Orientation: alert Psych mental status grossly normal Skin General Skin Exam: pallor MDM MDM MDM Narrative Medical decision making narrative: Patient placed on table assembler. EKG obtained to evaluate for cardiac arrhythmia/ischemia. Chest x-ray obtained to evaluate for acute lung pathology, cardiac size, or mediastinal abnormality. Labwork obtained to evaluate for leukocytosis, anemia, and electrolyte derangement. Given the patient's headache with recent high blood pressure a head CT is obtained. History & Record Review Additional record(s) reviewed:: Prior inpatient record and Prior labs Lab Data Attestation: I reviewed the patient's lab results. Labs: Laboratory Results - last 24 hr 06/13/22 06/13/22 14:44 14:44 WBC 8.3 RBC 4.47 Hgb 13.0 Hct 41.1 MCV 91.9 MCH 29.1 MCHC 31.6 L RDW Std Deviation 48.0 H RDW Coeff of [place] 14.1 Plt Count 314 MPV 8.9 Immature Gran % (Auto) 0.400 Neut % (Auto) 68.6 Lymph % (Auto) 13.6 L [place] % (Auto) 10.7 H Eos % (Auto) 5.7 H Baso % (Auto) 1.0 Absolute Neuts (auto) 5.7 Absolute Lymphs (auto) 1.12 Nucleated RBC % 0 Sodium 134 L Potassium 4.7 Chloride 106 Carbon Dioxide 22.0 Anion Gap 6 BUN 30 H Creatinine 1.38 H Estim Creat Clear Calc 25.29 Est GFR (MDRD) Af Amer 47 L Est GFR (MDRD) Non-Af 39 L BUN/Creatinine Ratio 21.7 H Glucose 113 H Calcium 8.7 Troponin I High Sens 21 Radiography Chest X-Ray - ED: 1 View, Read by ED Physician and Chronic Changes Diagnostic Testing: Clinical Impression(s) from Imaging Studies Chest X-Ray 06/13/22 14:24 IMPRESSION: Cardiomegaly without radiographic evidence of acute cardiopulmonary disease. Electronically Signed: Vincent Garcia MD at 15:34 EDT , Brain CT 06/13/22 15:10 IMPRESSION: No acute intracranial findings. Electronically Signed: Vincent Garcia MD at 16:56 EDT Reading Location ID and State: [facility] / [place] Tel , Service support , EKG Initial EKG: Attestation: I personally reviewed and interpreted this EKG as follows: Interpretation: Sinus Bradycardia (Sinus bradycardia at 49 bpm. Lateral T inversions. No significant ST change.) Differential Diagnosis Chest pain/SOB: pulmonary embolism Reason(s) PE less likely: Positive for patient taking oral anticoagulants and ACS ACS: Positive for no evidence of ACS based on cardiac biomarkers and EKG without ischemia Treatment and Re-Evaluation :: CBC was normal white count 8.3 with hemoglobin of 13. Chemistry studies significant for a BUN of 30 and creatinine 1.38, only slightly elevated over her baseline. Troponin is normal at 21. EKG is sinus bradycardia at 49 bpm with no acute ischemia. Chest x-ray reveals chronic changes per my interpretation. Radiology interpretation is reviewed. CT scan of the head reveals chronic changes with no acute findings. Patient was given a liter IV fluid bolus. Upon returning from CT her blood pressure was 155/59 with a heart rate of 53. Next 2 blood pressure readings are 133/48 and 114/85. At this time systolic pressure is 119. She denies lightheadedness or feeling as if she is going to pass out. I spoke with the patient's accounting professional, Dr. Mcdonald. At this time he would prefer the patient hold her Imdur as she is currently taking 60 mg a day. She will remain on the amlodipine that was recently started. Patient is to continue to journal her blood pressure and heart rate readings and call his office with updates. Patient is comfortable with this plan. I did encourage her to increase p.o. fluids over the next couple days as well. Discharge Plan Triage Chief Complaint: Dizziness ED Provider: Sejal Truong Dx/Rx/DC Orders Clinical Impression: Near syncope, Hypotension Instructions: ED Dehydration (Adult), ED Low Blood Pressure, All Causes, ED Near-Fainting, Uncertain Cause Prescriptions: No Action sertraline 50 mg tablet 50 mg PO DAILY Eliquis 2.5 mg tablet 2.5 mg PO DAILY neomycin-polymyxin B-dexameth Drops,Suspension 1 drp ophthalmic (eye) TID estradiol [Estrace] 0.01 % (0.1 mg/gram) cream 1 g vaginal 2XW omeprazole 20 mg capsule,delayed release(DR/EC) 20 mg PO DAILY Label Comments: STOMACH MEDICINE, ACID REFLUX hydroxyzine HCl 50 mg tablet 50 mg PO QHS PRN (Reason: Sleep) Label Comments: TAKE 1 TABLET BY MOUTH AT BEDTIME NEEDED FOR ANXIETY/INSOMNIA aspirin 81 mg Tablet,Delayed Release (Dr/Ec) 81 mg PO DAILY melatonin 10 mg tablet 10 mg PO QHS losartan 50 mg Tablet 50 mg PO BID acetaminophen [Tylenol] 325 mg Tablet 650 mg PO Q6H PRN (Reason: Pain) clopidogrel 75 mg tablet 75 mg PO DAILY spironolactone 25 mg Tablet 12.5 mg PO DAILY calcium carbonate [Nitin-600] 600 mg calcium (1,500 mg) Tablet 600 mg PO BID pravastatin 80 mg Tablet 80 mg PO DAILY (DME) Handicap placard See Rx Instructions .Route .MEDSUPPLY Qty: 1 0RF Rx Instructions: Lifetime levothyroxine 75 mcg tablet 75 mcg PO DAILY nitroglycerin 0.4 mg tablet, sublingual 0.4 mg SUBLINGUAL Q5M PRN (Reason: Chest Pain) Qty: 25 1RF amiodarone 200 mg tablet 200 mg PO DAILY carvedilol 12.5 mg tablet 12.5 mg PO BID Rx Instructions: must administer with a meal/food isosorbide mononitrate 60 mg tablet extended release 24 hr 60 mg PO DAILY Primary Care Provider: Kenji Osei Referrals: Kenji Osei MD [Primary Care Provider] - Activity Restrictions/Additional Instructions: Your case was discussed with your accounting professional, Dr. Mcdonald. He would like you to stop taking the Imdur 60 mg that you currently take daily. Please continue the amlodipine that you recently started. Please continue to journal your blood pressure and heart rate readings and call his office with an update. Return to the ER immediately or call 911 for any worsened symptoms or concerns. Disposition Disposition: Home, Self Care
--- NOTE | 2022-06-13 15:10 | CT_ITS ---
INDICATION: dizzy, headache EXAMINATION: CT BRAIN - CT Head or Brain W/O Contrast Injection TECHNIQUE: Multiple axial images were obtained of the head without intravenous contrast. A radiation dose optimization technique was used for this scan. IV Contrast dosage and agent: None. COMPARISON: 03/16/2015 FINDINGS: BRAIN PARENCHYMA: No intra- or extra-axial hemorrhage. No evidence of acute infarct. No intracranial mass or mass effect. Posterior fossa structures are unremarkable. CSF SPACES: Appropriate for age. No hydrocephalus. Basal cisterns are patent. CALVARIUM, SKULL BASE, PARANASAL SINUSES AND MASTOID AIR CELLS: Left maxillary sinusitis. No discrete lytic or blastic abnormalities. ORBITS: Both globes, extraocular muscles, optic nerves and retrobulbar fat appear unremarkable. CT/Brain/Head without Contrast IMPRESSION: No acute intracranial findings. Electronically Signed: Vincent Garcia MD at 16:56 EDT ,
[2022-06-13 15:23] LABS: Anion Gap 6 (5-15); BUN 30 mg/dL (7-18); BUN/Creat Ratio 21.7 RATIO (10-20); Calcium,Total 8.7 mg/dL (8.5-10.1); Chloride 106 mmol/L (98-107); Creatinine, Serum 1.38 mg/dL (0.55-1.02); EST Glomerular Filtration Rate 39 mL/min (>60); Est Glom Filt Rate - Afr Amer 47 mL/min (>60); Estimated Creatinine Clearance 25.29 ml/min; Glucose 113 mg/dL (74-106); Potassium 4.7 mmol/L (3.5-5.1); Sodium Level 134 mmol/L (136-145); Troponin-I HS 21 pg/mL (3.0-54.0)
[2022-06-13 16:09] VITALS: BP 155/59; PULSE 53; RESP 15; O2SAT 96
[2022-06-13] MEDS: 0.9% Normal Saline 1,000 ML 150 ML IV (16:19)
[2022-06-13 16:32] VITALS: BP 133/48; PULSE 54; RESP 14; O2SAT 96
[2022-06-13 17:08] VITALS: BP 134/56; PULSE 54; RESP 15; O2SAT 96
== END 2022-06-13 18:02 | disposition home or self-care (01) ==
PROVIDERS: Emergency Provider Emergency Medicine; PCP Internal Medicine; Visit Provider Emergency Medicine
DX: R55 Syncope and collapse (principal); I95.9 Hypotension, unspecified; I25.10 Atherosclerotic heart disease of native coronary artery without angina pectoris; E78.00 Pure hypercholesterolemia, unspecified; I25.5 Ischemic cardiomyopathy; I10 Essential (primary) hypertension; I25.2 Old myocardial infarction; E03.9 Hypothyroidism, unspecified; Z95.5 Presence of coronary angioplasty implant and graft; Z79.82 Long term (current) use of aspirin; Z79.01 Long term (current) use of anticoagulants; Z79.899 Other long term (current) drug therapy
CPT/HCPCS: 36415; 70450; 71045; 80048; 84484; 85025; 93005; 96360; 96361; 99285; J7030; A4216

== ENCOUNTER 2022-06-22 16:21 | Emergency (ER) | payer MEDICARE, OTHER, SELFPAY ==
[2022-06-11 14:11] VITALS: BMI 21.9
[2022-06-22 16:22] VITALS: BP 185/58; PULSE 63; RESP 18; TEMP 35.9; O2SAT 99; BMI 22.6
[2022-06-22 16:27] VITALS: BP 151/52; PULSE 45; RESP 16; O2SAT 97
--- NOTE | 2022-06-22 16:35 | EX.ED.DYSGE1 ---
HPI History of Present Illness Chief Complaint: Hypertension Narrative Narrative: 81-year-old female, past medical history of hypertension, coronary artery disease, currently undergoing cardiac rehab at [facility] with Dr. Mcdonald. She presents because of fluctuating blood pressure. She states that she will take it and will be 170 systolic, then she will take it again a little while later and will be 107. She states she has had intermittent headaches, but denies any chest pain or shortness of breath, no other symptoms. Of note, she states she was on a bunch of different medications regarding her blood pressure, but was seen in the emergency department last Tuesday, where they spoke to her final touch up painter, and one of her medications was taken away because she was having low blood pressure. She states that she has been keeping a log of her blood pressures over the last week and they are all over. [facility] Medical History Abnormal ECG Abnormal serum enzyme level Abnormal stress test Angina pectoris Atherosclerotic heart disease of [place] coronary artery without angina pectoris Bladder prolapse Chest pain Essential hypertension History of coronary artery stent placement (~09/25/13) Hypothyroidism Ischemic cardiomyopathy halfway use of drug Non-rheumatic mitral regurgitation Nonrheumatic mitral valve disorder NSTEMI (non-ST elevation myocardial infarction) Old myocardial infarction Pure hypercholesterolemia Tachycardia Home Medications Handicap placard #1 ea 11/19/20 [Rx Last Taken Unknown] levothyroxine 75 mcg tablet 75 mcg PO DAILY thyroid 05/06/21 [History Last Taken 02/09/22] sertraline 50 mg tablet 50 mg PO DAILY ANXIETY 05/06/21 [History Last Taken 02/08/22] aspirin 81 mg tablet,delayed release 81 mg PO DAILY HEART 02/09/22 [History Last Taken 04/20/22 0430] hydroxyzine HCl 50 mg tablet 50 mg PO QHS PRN Sleep 02/09/22 [History Last Taken 02/08/22] nitroglycerin 0.4 mg sublingual tablet 0.4 mg sublingual Q5M PRN Chest Pain #25 tabs 02/25/22 [Rx Last Taken 04/20/22 04:30] apixaban 2.5 mg tablet (Eliquis) 2.5 mg PO DAILY 04/26/22 [History Last Taken Unknown] estradiol 0.01% (0.1 mg/gram) vaginal cream (Estrace) 1 g vaginal 2XW 04/26/22 [History Last Taken Unknown] melatonin 10 mg tablet 10 mg PO QHS SLEEP 04/26/22 [History Last Taken Unknown] neomycin-polymyxin B-dexameth eye drops,suspension 1 drp ophthalmic (eye) TID 04/26/22 [History Last Taken Unknown] omeprazole 20 mg capsule,delayed release 20 mg PO DAILY GERD 04/26/22 [History Last Taken Unknown] amiodarone 200 mg tablet 200 mg PO DAILY dose reduced at [facility]. 05/04/22 [History Last Taken Unknown] carvedilol 12.5 mg tablet 12.5 mg PO BID 05/04/22 [History Last Taken Unknown] isosorbide mononitrate 60 mg tablet,extended release 24 hr 60 mg PO DAILY 05/04/22 [History Last Taken Unknown] acetaminophen 325 mg tablet (Tylenol) 650 mg PO Q6H PRN Pain 06/13/22 [History Last Taken Unknown] calcium carbonate 600 mg calcium (1,500 mg) tablet 600 mg PO BID 06/13/22 [History Last Taken Unknown] clopidogrel 75 mg tablet 75 mg PO DAILY 06/13/22 [History Last Taken Unknown] losartan 50 mg tablet 50 mg PO BID 06/13/22 [History Last Taken Unknown] pravastatin 80 mg tablet 80 mg PO DAILY 06/13/22 [History Last Taken Unknown] spironolactone 25 mg tablet 12.5 mg PO DAILY 06/13/22 [History Last Taken Unknown] Allergy/AdvReac Type Severity Reaction Status Date / Time morphine AdvReac Severe Junctional Verified 06/22/22 16:25 rhythm lisinopril AdvReac Intermediate Cough Verified 06/22/22 16:25 Family History Mother Breast cancer Myocardial infarction CAD (coronary artery disease) Diabetes Father Myocardial infarction CAD (coronary artery disease) Brother Myocardial infarction Diabetes CAD (coronary artery disease) Sister Breast cancer Hypertension Surgical History Presence of coronary angioplasty implant and graft (~09/25/13) Social History household members: none Smoking Status: Never smoker alcohol intake: never substance use type: does not use caffeine: No what type of physical activity do you participate in: walking frequency: 3-4 times per week duration: 45-60 minutes/day seatbelt use: always do you feel safe at home: Yes ROS ROS ED ROS Narrative Constitutional: No fever, no chills. Fluctuating blood pressure. HEENT: No sore throat. No neck pain. No loss of vision. No rhinorrhea. Cardiovascular: No chest pain. No palpitations. No pedal edema. Respiratory: No cough, no shortness of breath. Abdominal: No abdominal pain. No nausea. No vomiting. Genitourinary: No dysuria. No hematuria. Musculoskeletal: No myalgias. No arthralgias. Neurologic: Intermittent headaches. No dizziness. No lightheadedness. Skin: No rash. No change in color. Psychiatric: No depression. No anxiety. EXAM Physical Exam Narrative Exam Narrative: Afebrile. Vital signs noted. HEENT: Normocephalic. Atraumatic. PERRL, EOMI. Neck soft and supple. No point tenderness or step off. Cardiovascular: Regular rate and rhythm. No murmurs, rubs, or gallops appreciated. Respiratory: No tachypnea. Lungs clear to auscultation bilaterally. Gastrointestinal: Abdomen soft, nontender, with normoactive bowel sounds. No rebound or guarding. Neurological: Awake. Alert. Nonfocal, nonlateralizing. Skin: No rash. Normal color. No pallor. Musculoskeletal: No pedal edema. Full range of motion extremities. Const Vital Signs: 06/22/22 16:22 06/22/22 16:27 06/22/22 16:27 Temperature 96.7 F L Temperature Source Temporal Pulse Rate 63 45 L Respiratory Rate 18 16 Respiratory Effort Normal Non-Labored Respiratory Pattern Normal Blood Pressure 185/58 H 151/52 H Blood Pressure Mean 100 85 Pulse Ox 99 97 Oxygen Delivery Method Room Air Room Air MDM MDM MDM Narrative Medical decision making narrative: Initially upon arrival, her systolic blood pressure was a little in the 180s. As she was being triaged at the bedside, is currently 151. She wanted know what her heart rate was so I will obtain an EKG although she is asymptomatic with this. I will obtain a CT of the brain given her headaches with her elevated blood pressure to help rule out hypertensive bleed. I reviewed her prior records and ED visit. According to the ED documentation, they spoke with Dr. Mcdonald and she was supposed to stay on her amlodipine that was started a few days earlier, and stopped her Imdur secondary to hypotension. Currently, she is unaware of what she is actually taking for her blood pressure, but states that Dr. Mcdonald had adjusted her medication and reduced 1 over the other. EKG was obtained which demonstrates atrial fibrillation with slow ventricular response at [address] changes. No STEMI. This was interpreted by myself. Initially, I did order a CT of the brain just because she was complaining of headaches, but stating that with the lower blood pressure that her headache has eased up. Patient refused CT scanning. At this point in time, she does have a labile blood pressure as it fluctuates even while she is in the emergency department. I do not feel laboratory work is indicated, furthermore the patient refuses stating that she does not need blood work because it was fine last week. I discussed patient with Dr. Cantor for her final touch up painter who agrees with her keeping log of her blood pressures and following up with Dr. Mcdonald by calling the office tomorrow. She was told not to take her blood pressure too frequently, right after getting an initial high reading. She will take her blood pressure in the morning when she wakes up, and then again before bedtime. I feel she can be discharged safely home with follow-up. I do not feel that she requires observation. Return instructions to the emergency department were reviewed. Disposition is discharged home in stable condition. History & Record Review Discussion w/independent historian: Patient Additional record(s) reviewed:: Prior ED visit Discharge Plan Triage Chief Complaint: Hypertension ED Provider: Silvestre Han Dx/Rx/DC Orders Clinical Impression: Labile blood pressure, History of coronary artery stent placement, Essential hypertension Instructions: ED Hypertension, Established, ED Symptoms With Uncertain Cause Prescriptions: No Action sertraline 50 mg tablet 50 mg PO DAILY Eliquis 2.5 mg tablet 2.5 mg PO DAILY neomycin-polymyxin B-dexameth Drops,Suspension 1 drp ophthalmic (eye) TID estradiol [Estrace] 0.01 % (0.1 mg/gram) cream 1 g vaginal 2XW omeprazole 20 mg capsule,delayed release(DR/EC) 20 mg PO DAILY Label Comments: STOMACH MEDICINE, ACID REFLUX hydroxyzine HCl 50 mg tablet 50 mg PO QHS PRN (Reason: Sleep) Label Comments: TAKE 1 TABLET BY MOUTH AT BEDTIME NEEDED FOR ANXIETY/INSOMNIA aspirin 81 mg Tablet,Delayed Release (Dr/Ec) 81 mg PO DAILY melatonin 10 mg tablet 10 mg PO QHS losartan 50 mg Tablet 50 mg PO BID acetaminophen [Tylenol] 325 mg Tablet 650 mg PO Q6H PRN (Reason: Pain) clopidogrel 75 mg tablet 75 mg PO DAILY spironolactone 25 mg Tablet 12.5 mg PO DAILY calcium carbonate [Nitin-600] 600 mg calcium (1,500 mg) Tablet 600 mg PO BID pravastatin 80 mg Tablet 80 mg PO DAILY (DME) Handicap placard See Rx Instructions .Route .MEDSUPPLY Qty: 1 0RF Rx Instructions: Lifetime levothyroxine 75 mcg tablet 75 mcg PO DAILY nitroglycerin 0.4 mg tablet, sublingual 0.4 mg SUBLINGUAL Q5M PRN (Reason: Chest Pain) Qty: 25 1RF amiodarone 200 mg tablet 200 mg PO DAILY carvedilol 12.5 mg tablet 12.5 mg PO BID Rx Instructions: must administer with a meal/food isosorbide mononitrate 60 mg tablet extended release 24 hr 60 mg PO DAILY Primary Care Provider: Kenji Osei Referrals: Kenji Osei MD [Primary Care Provider] - Activity Restrictions/Additional Instructions: Do not take your blood pressure too frequently while at home. Keep a log of your blood pressures when you take them at the same time in the morning, and in the evening before bed. Call Dr. Mcdonald, your final touch up painter tomorrow. Disposition Disposition: Home, Self Care
== END 2022-06-22 17:08 | disposition home or self-care (01) ==
PROVIDERS: Emergency Provider Emergency Medicine; PCP Internal Medicine; Visit Provider Emergency Medicine
DX: I10 Essential (primary) hypertension (principal); I25.10 Atherosclerotic heart disease of native coronary artery without angina pectoris; I25.2 Old myocardial infarction; Z95.5 Presence of coronary angioplasty implant and graft
CPT/HCPCS: 93005; 99282

== ENCOUNTER 2022-06-28 14:30 | Outpatient (RCR) | payer MEDICARE, OTHER, SELFPAY ==
[2022-06-11 14:11] VITALS: BMI 21.9
--- NOTE | 2022-07-09 08:37 | PCM.CR.ITP ---
Diagnosis Exercise - 30-day Assessment - Visit Date of Eval: 07/09/22 Session #:: 3 Comments:: pt has not been in rehab since 06/28/22. She plans on returning 07/12/22. - Physician Prescribed Exercise Modalities: Treadmill, Airdyne, NuStep Frequency: 3x/week for 12 weeks [36 sessions] Intensity: 60-80% of age predicted maximum heart rate reserve Current METSs:: 3 Target Heart Rate:: 90-104 Current RPE:: 12 Maximum Excercise HR:: 63 Resting Blood Pressure: 126/40 Maximum Exercise Blood Pressure: 144/54 EKG Type: SB with rare PAC. Junctional rhythm vs wandering atrial pacer rate 42-45 Current Physical Activity or Exercising minutes: Dr Chery office called about low HR - Outcomes & Goals Goals:: Verbalizes understanding of THR, RPE & goal METS by session 6, Documents in home exercise log/reports 30 min aerobic 5 day/wk by DC, Demonstrates accurate pulse taking by DC, Other additional outcome/goals: see below - Intervention & Plan Exercise Program Goals: Instruct on personal THR & RPE, Instruct on MET level & personal MET goal, Show patient to take own pulse /validate performance until accurate, Instruct on home exercise, Other additional plan/int - 30-day Reassessments 30 day Reassessments:: Progressing - THR explained - Physical Activity Home Exercise Physical Activity - Home Exercise: Safe Exercise, Warm-up, Self-monitoring, Cool-Down, Home Exercise > 30 min Daily, Sitting Time <3 hours/daily - Outcomes & Goals Outcomes/Goals: Demonstrates correct Warm-up/exercise Cool-Down (S3) if = 2.5 METs, Verbalizes symptoms of exercise intolerance by Session 3 (S3), Demonstrate safe equipment use (S3) & follows exercise prescrition (6), Other: See below - Intervention & Plan Plan/Intervention: Instruct warm-up & cool-down if exercising at > 2 METs, Instruct on symptoms of exercise intolerance & actions to take, Instruct & monitor on saf, Assess intial functional capacity & safety risk, Other See below - 30-day Reassessments 30 day Reassessments:: Progressing - warm up encouraged Nutrition - Initial Assessment Nutrition - 30-Day Assessment - Program Goals Nutrition Program Goals: LDL <100 optimal. 100 - 129 Near optimal. 130 - 159 Borderline High. 160 - 189 High. Total Cholesterol <200 desirable. 200 - 239 Borderline High. >/= 240 High. HDL < 40 Low >/=60 High. Triglycerides <150 desirable. <199 optimal. VlDL 5 - 40. HgbA1C <7%. BMI <25 Patient has diagnosis of Hyperlipidemia (ICD E78)?: Yes - Visit Date of Assessment:: 07/09/22 Session #:: 3 - Cholesterol/Lipids (Other Core Measures) Determine presence & major risk factors that modify LDL goal: Hypertension or hypertensive medication, Low HDL cholesterol <40 mg/dL*, Family history of premature CHD in Male < 55 years: female <65 yearsFa, Age men > 45 years; women >/= 55 years Outcomes/Goals: Pt IDs own risk factors & lifestyle modifications by Session 10, Verbalizes symptoms of angina & response by session 3., Pt independently manages, Other Additional Outcomes/Goals: Intervention/Plan: Advocate for lipid panel cholesterol medication if applicable, Instruct on personal lipid levels & lipid goals/NCEP guidelines, Instruct on cholesterol, Other additional plan/int Referral to dietitian:: No - declines 30-day Reassessments:: Progressing - risk factors expained - Diabetes (Other Core Measures) Diabetes Type: Not Applicable - Weight Mgt (Other Care) Height: 5 ft 2 in Weight:: 54.431 kg BMI: 21.9 Diagnosis Overweight/Obesity BMI> 30% ICD-10 E66: No Diagnosis High BMI/Morbid Obesity BMI> 35% ICD-10 Z68: No Outcomes/Goals: Pt sets, maintains & shows weight loss goal & trend during rehab, Other additional outcomes/goals Intervention/Plan: Instruct on ideal BMI & set weight loss goal w/patient, Assist pt to ID & incorporate diet changes for weight loss by S9, Refer to Structured Weight Loss program as appropriate, Encourage goal of using 250-300dcal per session for weight loss, Other additional plan/interventions 30 day Reassessments:: Progressing - pt will attend nutrition class - Healthy Eating Habits Will attend diet classes:: Yes Outcomes/Goals:: Consume diet rich in vegs,fruits,whole grain/high fiber,fish,lean meat, Limit sat/trans fats,cholesterol & added salts & sugars, Other additional outcome/goals: Intervention/Plan:: Assess current eating habits, Other Additional plan/interventions 30-day Reassessments:: Progressing - pt will attend nutrition class - Education Gave educational materials for:: Signs & symptoms of hypoglycemia, Signs & symptoms of hyperglycemia, Relate diabetes to coronary artery disease, Healthy eating Nutrition - 60-Day Assessment Nutrition - 90-Day Assessment Nutrition - Final Assessment Core - Initial Assessment Core - 30-Day Assessment - Visit Date of Eval: 07/09/22 Session #:: 3 - Medication Compliance Preventative Medication(s):: Beta shruti, Eliquis H/O mental health issues: depression, anxiety, or addiction?: No Doesn?t believe in the benefits of treatment?: No Believes medications are unnecessary or harmful?: No Has a concern about medication side effects?: No Expresses concern over the cost of medications?: No Outcomes/Goals: Verbalizes medications,desired effect & common side effects @ DC, Pt self-reports following medication regimen, Keeps card in wallet w/medications listed by DC, Other additional outcome/goals: Interventions/plans: Instruct on medication effects & side effects, Review medication list w/patient every two weeks, Instruct importance of taking meds as ordered & assist problem solving, Other additional 30-day Reassessments:: Progressing - pt encouraged to take meds - Tobacco Use Tobacco Use: Non-smoker - Hypertension Hypertension Diagnosis:: Hypertension ICD-10 I10 Resting Blood Pressure:: 126/40 [place] [employer] Hypertension Guidelines: [place] [employer] Hypertension Guidelines. Normal BP Less than 120/80. Elevated BP 120/80. Hypertension Stage 1: BP 130-139/80-89. Hypertesnion Stage 2: BP 140 or higher/90 or higher. Hypertension Crisis: BP higher than 180/120 Peak Exercise Blood Pressure:: 144/54 Outcomes/Goals: Able to verbalize/achieve optimal blood pressure <130/80, Incorporates diet changes & exercise for blood pressure control by DC, Other additional outcomes/goals Interventions/plan: Instruct on optimal blood pressure, hypertension & medications, Instruct on effects of sodium, alcohol, stress, exercise &hypertension, Other additional plan/interventions 30 day Reassessments:: Progressing - pt encouraged to take meds - Tobacco Cessation Referral Smoking Cessation Referral:: No Individual Education/Counseling:: No Education Schedule Given:: Yes Core - 60-Day Assessment Core - 90 Day Assessment Core - Final Assessment Psychosocial - Initial Assess Psychosocial - 30-Day Assess - VIsit Date of Eval: 07/09/22 Session #:: 3 History of previous Mental disease:: Yes - pt on meds and doing fine History of Emotional Disorders: Anxious - Outcomes/Goals: See list Psychosocial Outcomes/Goals:: ID's personal stressors & 2 strategies to manage stress by discharge, Other Additional outcome/goals: - Intervention/Plan: See List Interventions/Plan:: Assess stressors,coping strategies & signs of derpression on admission, Instruct/assist pt to develop coping & personal stress Mgt strategies, Refer to Behavioral Health if appropriate, Refer to Physician if appropriate, Instruct patient to recognize signs & symptoms of depression, Instruct patient to recog, Other additional plan/intervention - 30-day Reassessments: 30 day Reassessments:: Met Psychosocial - 60-Day Assess Psychosocial - 90-Day Assess Psychosocial - Final Assessmen Patient Health Questionnaire 30-Day Re-eval Assessment 1. Little interest or pleasure in doing things: Not at all 2. Feeling down, depressed, or hopeless: Not at all 3. Trouble falling or staying asleep, or sleeping too much: Several days 4. Feeling tired or having little energy: Several days 5. Poor appetite or overeating: Not at all 6. Feeling bad about yourself -- or that you are a failure or have let yourself or your family down: Not at all 7. Trouble concentrating on things, such as reading the newspaper or watching television: Not at all 8. Moving or speaking so slowly that other people could have noticed. Or the opposite - being so fidgety or restless that you have been moving around a lot more than usual: Not at all 9. Thoughts that you would be better off , or of hurting yourself in some way: Not at all How difficult have these problems made it for you to do your work, take care of things at home, or get along with other people?: Somewhat difficult Total Score: 2 Self-Efficacy 30-Day Re-eval Assessment We would like to know how confident you are in doing certain activities. Please select your confidence level for:: Select your confidence level for the following using the scale 1-10 where 1 is not at all confident and 10 is totally confident. Your score is the average of all 6 responses. Fatigue: How confident are you that you can keep the fatigue caused by your disease from interfering with the things you want to do? Select Number: 8 Physical Discomfort or Pain: How confident are you that you can keep the physical discomfort or pain of your disease from interfering with the things you want to do? Select Number: 10 Emotional Distress: How confident are you that you can keep the emotional distress caused by your disease from interfering with the things you want to do? Select Number: 8 Other Symptoms or Health Problems: How confident are you that you can keep other symptoms or health problems from interfering with the things you want to do? Select Number: 9 Different Tasks and Activities: How confident are you that you can do the different tasks and activities needed to manage your health condition so as to reduce your need to see a doctor? Select Number: 8 Medication: How confident are you that you can do things other than just taking medication to reduce how much your illness affects your everyday life? Select Number: 9 Total Score:: 8 Nutrition Survey
[2022-07-09 08:48] VITALS: BP 126/40; BP 144/54; BMI 21.9
== END 2022-07-21 23:59 ==
LOC: CR 14:30
PROVIDERS: PCP Internal Medicine; Referring Provider Internal Medicine Interventional Cardiology; Visit Provider Internal Medicine Interventional Cardiology
DX: Z95.5 Presence of coronary angioplasty implant and graft (principal)
CPT/HCPCS: 93798

== ENCOUNTER 2022-07-13 12:40 | Emergency (ER) | payer MEDICARE, OTHER, SELFPAY ==
[2022-07-13 12:42] VITALS: BP 127/44; PULSE 53; RESP 18; TEMP 36.5; O2SAT 96; BMI 23.5
--- NOTE | 2022-07-13 13:13 | EKG12_ITS ---
Test Reason : BRADYCARDIA Blood Pressure : / mmHG Vent. Rate : 037 BPM Atrial Rate : 037 BPM P-R Int : 156 ms QRS Dur : 090 ms QT Int : 552 ms P-R-T Axes : 008 -61 094 degrees QTc Int : 433 ms Marked sinus bradycardia with Premature atrial complexes in a pattern of bigeminy Left axis deviation Septal infarct , age undetermined Abnormal ECG Confirmed by BRITTANY OWENS, AYANNA ([id number]), newspaper managing editor DAVID SMITH ([id number]) on 07/15/2022 8:53:20 AM Referred By: NICK Confirmed By:AYANNA SOTO MD
--- NOTE | 2022-07-13 13:16 | RAD_ITS ---
STUDY: X-RAY CHEST REASON FOR EXAM: Female, 81 years old. Chest pain TECHNIQUE: Single AP portable view of the chest. COMPARISON: April 20, 2022, June 13, 2022 FINDINGS: There is a stable nodule within the left apex suggesting a calcified granuloma measuring 5 mm. The lungs are clear and expanded. There is no demonstrated pleural abnormality. There is mild cardiac enlargement. Normal mediastinum and dylan. Normal visualized pulmonary arteries. There is atherosclerotic calcification of the aortic arch with tortuosity. Normal visualized thoracic spine. Normal visualized ribs, clavicles, and shoulders. There is no demonstrated abnormality of the visualized soft tissue structures of the upper abdomen. RAD/Chest 1 View (Portable) IMPRESSION: . No demonstrated acute cardiopulmonary process. Electronically Signed: Nida Perez MD at 13:54 EDT ,
[2022-07-13 13:25] LABS: Absolute Lymphocyte Count 0.87 X10^3/uL (0.83-4.51); Absolute Neutrophil Count 8.7 X10^3/uL (2.0-7.7); Basophil# 0.09 X10^3/uL; Basophil% 0.8 % (0-1); Eosinophils% 3.5 % (0-5); Hematocrit 39.1 % (37-47); Hemoglobin 12.6 g/dL (12.0-15.0); Lymphocyte # 0.87 X10^3/ul (0.83-4.51); Lymphocyte % 7.7 % (19-41); Mean Corp Hgb Conc 32.2 g/dL (32-36); Mean Corpuscular Hgb 29.2 pg (27.0-32.0); Mean Corpuscular Volume 90.7 fL (81-99); Mean Platelet Vol. 9.4 fl (6.2-12.0); Monocyte# 1.25 X10^3/uL; NRBC Flagged by Analyzer 0 % (0-5); Neutrophil # 8.68 X10^3/uL (2.7-7.7); Neutrophil % 76.6 % (47-70); Platelet Count 334 K/mm3 (150-450); RBC Distribution Width CV 13.4 % (11.6-14.6); RBC Distribution Width SD 44.8 fl (35.1-43.9); Red Blood Count 4.31 M/mm3 (4.2-5.4); White Blood Count 11.3 K/mm3 (4.4-11.0)
[2022-07-13 13:40] LABS: Anion Gap 7 (5-15); BUN 28 mg/dL (7-18); BUN/Creat Ratio 18.4 RATIO (10-20); Calcium,Total 8.7 mg/dL (8.5-10.1); Chloride 99 mmol/L (98-107); Creatinine, Serum 1.52 mg/dL (0.55-1.02); EST Glomerular Filtration Rate 35 mL/min (>60); Est Glom Filt Rate - Afr Amer 42 mL/min (>60); Estimated Creatinine Clearance 22.96 ml/min; Glucose 109 mg/dL (74-106); Potassium 5.5 mmol/L (3.5-5.1); Sodium Level 130 mmol/L (136-145); Troponin-I HS (w/2H Reflex) 12 pg/mL (3.0-54.0)
[2022-07-13 13:48] VITALS: BP 112/44; PULSE 49; RESP 11; O2SAT 96
[2022-07-13 14:18] VITALS: BP 120/51; PULSE 51; RESP 15; O2SAT 96
[2022-07-13] MEDS: Calcium Gluconate IV 3 GM in Syringe 1 EACH IV (15:04)
[2022-07-13] MEDS: Dextrose 50%-Water 25 GM/50 ML DISP.SYRIN IV (15:04)
[2022-07-13] MEDS: Insulin Lispro 10 UNIT in Syringe 0 ML 6 UNIT IV (15:04)
[2022-07-13 15:12] VITALS: BP 104/45; PULSE 53; RESP 12; O2SAT 96
--- NOTE | 2022-07-13 16:56 | EX.ED.DYSGE1 ---
HPI History of Present Illness Chief Complaint: Hypotension Informant: patient Onset/Context/Timing Onset: Days (3-4) Context: Gradual Onset Timing: Continuous Quality: Lightheaded Location: Generalized Worsened by: Exertion Relieved by: Nothing Narrative Narrative: Patient presents with low heart rate and low blood pressure that was noticed by her primary care physician today. Patient states she saw her primary care physician today for low back pain that has been getting worse over the last 3 to 4 days. Patient states she was feeling lightheaded. Patient states this gets worse with any exertion. Patient states nothing seems to help with it. Patient denies any fevers or chills. Patient denies any chest pain or shortness of breath. Patient denies any nausea or vomiting. 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 Non-rheumatic mitral regurgitation Nonrheumatic mitral valve disorder NSTEMI (non-ST elevation myocardial infarction) Old myocardial infarction Pure hypercholesterolemia Tachycardia Home Medications Handicap placard #1 ea 11/19/20 [Rx Last Taken Unknown] levothyroxine 75 mcg tablet 75 mcg PO DAILY thyroid 05/06/21 [History Last Taken 02/09/22] sertraline 50 mg tablet 50 mg PO DAILY ANXIETY 05/06/21 [History Last Taken 02/08/22] aspirin 81 mg tablet,delayed release 81 mg PO DAILY HEART 02/09/22 [History Last Taken 04/20/22 0430] hydroxyzine HCl 50 mg tablet 50 mg PO QHS PRN Sleep 02/09/22 [History Last Taken 02/08/22] nitroglycerin 0.4 mg sublingual tablet 0.4 mg sublingual Q5M PRN Chest Pain #25 tabs 02/25/22 [Rx Last Taken 04/20/22 04:30] apixaban 2.5 mg tablet (Eliquis) 2.5 mg PO DAILY 04/26/22 [History Last Taken Unknown] estradiol 0.01% (0.1 mg/gram) vaginal cream (Estrace) 1 g vaginal 2XW 04/26/22 [History Last Taken Unknown] melatonin 10 mg tablet 10 mg PO QHS SLEEP 04/26/22 [History Last Taken Unknown] neomycin-polymyxin B-dexameth eye drops,suspension 1 drp ophthalmic (eye) TID 04/26/22 [History Last Taken Unknown] omeprazole 20 mg capsule,delayed release 20 mg PO DAILY GERD 04/26/22 [History Last Taken Unknown] amiodarone 200 mg tablet 200 mg PO DAILY dose reduced at [facility]. 05/04/22 [History Last Taken Unknown] carvedilol 12.5 mg tablet 12.5 mg PO BID 05/04/22 [History Last Taken Unknown] isosorbide mononitrate 60 mg tablet,extended release 24 hr 60 mg PO DAILY 05/04/22 [History Last Taken Unknown] acetaminophen 325 mg tablet (Tylenol) 650 mg PO Q6H PRN Pain 06/13/22 [History Last Taken Unknown] calcium carbonate 600 mg calcium (1,500 mg) tablet 600 mg PO BID 06/13/22 [History Last Taken Unknown] clopidogrel 75 mg tablet 75 mg PO DAILY 06/13/22 [History Last Taken Unknown] losartan 50 mg tablet 50 mg PO BID 06/13/22 [History Last Taken Unknown] pravastatin 80 mg tablet 80 mg PO DAILY 06/13/22 [History Last Taken Unknown] spironolactone 25 mg tablet 12.5 mg PO DAILY 06/13/22 [History Last Taken Unknown] Allergy/AdvReac Type Severity Reaction Status Date / Time morphine AdvReac Severe Junctional Verified 07/13/22 12:46 rhythm lisinopril AdvReac Intermediate Cough Verified 07/13/22 12:46 Family History Mother Breast cancer Myocardial infarction CAD (coronary artery disease) Diabetes Father Myocardial infarction CAD (coronary artery disease) Brother Myocardial infarction Diabetes CAD (coronary artery disease) Sister Breast cancer Hypertension Surgical History Presence of coronary angioplasty implant and graft (~09/25/13) Social History household members: none Smoking Status: Never smoker alcohol intake: never substance use type: does not use caffeine: No what type of physical activity do you participate in: walking frequency: 3-4 times per week duration: 45-60 minutes/day seatbelt use: always do you feel safe at home: Yes ROS ROS ED Constitutional Constitutional ED: Denies chills or fever(s) Eyes Eyes: Denies blurry vision or change in vision ENT ENT ED: Denies rhinorrhea or sore throat Cardiovascular Cardiovascular: Denies chest pain or palpitations Respiratory/Chest Respiratory/Chest: Denies cough or dyspnea Gastrointestinal Gastrointestinal: Denies nausea or vomiting Genitourinary Genitourinary ED: Denies dysuria or hematuria Musculoskeletal Musculoskeletal: Reports back pain; Denies neck pain Integumentary Denies abscess or rash Neurologic Neurologic: Reports headache(s); Denies weakness Allergic/Immunologic Allergic/Immunologic ED: Denies mouth swelling or urticaria EXAM Physical Exam Const Vital Signs: 07/13/22 12:42 07/13/22 12:46 07/13/22 13:14 Temperature 97.7 F L Temperature Source Temporal Pulse Rate 53 L Pulse Rate [Lying] Pulse Rate [Sitting (for 1 minute prior to obtaining)] Pulse Rate [Standing (for 1 minute prior to obtaining)] Respiratory Rate 18 Respiratory Pattern Normal Blood Pressure 127/44 H Blood Pressure [Lying] Blood Pressure [Sitting (for 1 minute prior to obtaining)] Blood Pressure [Standing (for 1 minute prior to obtaining)] Blood Pressure Mean 71 Blood Pressure Mean [Lying] Blood Pressure Mean [Sitting (for 1 minute prior to obtaining)] Blood Pressure Mean [Standing (for 1 minute prior to obtaining)] Pulse Ox 96 Oxygen Delivery Method Room Air Room Air 07/13/22 13:48 07/13/22 14:18 07/13/22 15:12 Temperature Temperature Source Pulse Rate 49 L 51 L 53 L Pulse Rate [Lying] Pulse Rate [Sitting (for 1 minute prior to obtaining)] Pulse Rate [Standing (for 1 minute prior to obtaining)] Respiratory Rate 11 L 15 12 Respiratory Pattern Blood Pressure 112/44 L 120/51 L 104/45 L Blood Pressure [Lying] Blood Pressure [Sitting (for 1 minute prior to obtaining)] Blood Pressure [Standing (for 1 minute prior to obtaining)] Blood Pressure Mean 66 74 64 Blood Pressure Mean [Lying] Blood Pressure Mean [Sitting (for 1 minute prior to obtaining)] Blood Pressure Mean [Standing (for 1 minute prior to obtaining)] Pulse Ox 96 96 96 Oxygen Delivery Method Room Air Room Air Room Air 07/13/22 16:57 Temperature Temperature Source Pulse Rate Pulse Rate [Lying] 48 L Pulse Rate [Sitting (for 1 minute prior to obtaining)] 46 L Pulse Rate [Standing (for 1 minute prior to obtaining)] 48 L Respiratory Rate Respiratory Pattern Blood Pressure Blood Pressure [Lying] 143/56 H Blood Pressure [Sitting (for 1 minute prior to obtaining)] 143/58 H Blood Pressure [Standing (for 1 minute prior to obtaining)] 155/63 H Blood Pressure Mean Blood Pressure Mean [Lying] 85 Blood Pressure Mean [Sitting (for 1 minute prior to obtaining)] 86 Blood Pressure Mean [Standing (for 1 minute prior to obtaining)] 93 Pulse Ox Oxygen Delivery Method Positive well nourished and well developed General Appearance ED: well developed HEENT Reports moist mucous membranes Neck supple and no JVD Resp normal respiratory effort and clear to auscultation bilaterally Cardio regular rhythm Rate: bradycardia GI normal to inspection, nondistended, normoactive bowel sounds and non-tender Palpation: soft Extremity normal to inspection General Extremety ED: Negative for edema or tenderness General Extremity: Negative for edema Neuro oriented x3, CN's II-XII intact bilaterally and no sensory deficits noted Sensorium / Orientation: alert Motor Exam: strength 5/5 throughout Psych mental status grossly normal Skin no rashes or lesions noted MDM MDM MDM Narrative Medical decision making narrative: Differential diagnosis includes cardiac dysrhythmia, cardiac ischemia, electrolyte abnormality, anemia, and medication side effects. CBC will be obtained to assess for leukocytosis and anemia. Basic metabolic profile will be obtained to assess for electrolyte abnormality and renal function. High-sensitivity troponin will be obtained to assess for cardiac ischemia. EKG will be obtained to assess for cardiac dysrhythmia and cardiac ischemia. Chest x-ray will be obtained to assess for pneumonia, pneumothorax, congestive heart failure. History & Record Review Additional record(s) reviewed:: Prior labs Lab Data Attestation: I reviewed the patient's lab results. Lab results narrative: CBC was reviewed. There is a mild leukocytosis of 11.3. The remainder was essentially within normal limits. Basic metabolic profile was reviewed. Sodium was slightly low at 130 and potassium was slightly elevated at 5.5. BUN was 28 and creatinine was 1.52. These are consistent with prior results. High-sensitivity troponin was reviewed and was normal at 12. Labs: Laboratory Results - last 24 hr 07/13/22 07/13/22 13:00 13:00 WBC 11.3 H RBC 4.31 Hgb 12.6 Hct 39.1 MCV 90.7 MCH 29.2 MCHC 32.2 RDW Std Deviation 44.8 H RDW Coeff of [place] 13.4 Plt Count 334 MPV 9.4 Immature Gran % (Auto) 0.400 Neut % (Auto) 76.6 H Lymph % (Auto) 7.7 L [place] % (Auto) 11.0 H Eos % (Auto) 3.5 Baso % (Auto) 0.8 Absolute Neuts (auto) 8.7 H Absolute Lymphs (auto) 0.87 Nucleated RBC % 0 Sodium 130 L Potassium 5.5 H Chloride 99 Carbon Dioxide 24.0 Anion Gap 7 BUN 28 H Creatinine 1.52 H Estim Creat Clear Calc 22.96 Est GFR (MDRD) Af Amer 42 L Est GFR (MDRD) Non-Af 35 L BUN/Creatinine Ratio 18.4 Glucose 109 H Calcium 8.7 Troponin I High Sens 12 Radiography Diagnostic Testing: Clinical Impression(s) from Imaging Studies Chest X-Ray 07/13/22 13:16 IMPRESSION: . No demonstrated acute cardiopulmonary process. Electronically Signed: Nida Perez MD at 13:54 EDT Reading Location ID and State: [facility] / [place] Tel , Service support , Portable 1 view chest x-ray was obtained. On my independent interpretation, lung mccormick are clear. There is normal cardiac silhouette. Bony thorax is normal. There is no acute process noted. Radiologist also interpreted the x-ray and agrees. EKG Initial EKG: Attestation: I personally reviewed and interpreted this EKG as follows: Interpretation: Sinus Bradycardia (37) and Non-Specific ST Changes Comments: EKG was obtained. On my independent interpretation, it shows a sinus bradycardia with a rate of 37. LA interval was 156 ms. QRS interval was 90 ms. QTc interval was 433 ms. There is left axis deviation at -61. There are nonspecific ST-T wave changes noted. Prior EKG tracings: available for review Prior: Unchanged (06/13/2022) Treatment and Re-Evaluation :: Patient was given IV fluids. Patient given calcium gluconate, and dextrose for her hyperkalemia. Orthostatic vital signs were obtained and were negative. Case was discussed with Dr. Cantor from cardiology. He recommended decreasing the patient's carvedilol to 6.25 mg twice daily. We will have the patient follow-up with Dr. Mcdonald. Patient and family understand and are agreeable with the plan. All questions were answered. Discharge Plan Triage Chief Complaint: Hypotension ED Provider: Omkar Lomeli Dx/Rx/DC Orders Clinical Impression: Bradycardia, sinus, Hyperkalemia Instructions: ED Bradycardia, ED Hyperkalemia Prescriptions: No Action sertraline 50 mg tablet 50 mg PO DAILY Eliquis 2.5 mg tablet 2.5 mg PO DAILY neomycin-polymyxin B-dexameth Drops,Suspension 1 drp ophthalmic (eye) TID estradiol [Estrace] 0.01 % (0.1 mg/gram) cream 1 g vaginal 2XW omeprazole 20 mg capsule,delayed release(DR/EC) 20 mg PO DAILY Label Comments: STOMACH MEDICINE, ACID REFLUX hydroxyzine HCl 50 mg tablet 50 mg PO QHS PRN (Reason: Sleep) Label Comments: TAKE 1 TABLET BY MOUTH AT BEDTIME NEEDED FOR ANXIETY/INSOMNIA aspirin 81 mg Tablet,Delayed Release (Dr/Ec) 81 mg PO DAILY melatonin 10 mg tablet 10 mg PO QHS losartan 50 mg Tablet 50 mg PO BID acetaminophen [Tylenol] 325 mg Tablet 650 mg PO Q6H PRN (Reason: Pain) clopidogrel 75 mg tablet 75 mg PO DAILY spironolactone 25 mg Tablet 12.5 mg PO DAILY calcium carbonate [Nitin-600] 600 mg calcium (1,500 mg) Tablet 600 mg PO BID pravastatin 80 mg Tablet 80 mg PO DAILY (DME) Handicap placard See Rx Instructions .Route .MEDSUPPLY Qty: 1 0RF Rx Instructions: Lifetime levothyroxine 75 mcg tablet 75 mcg PO DAILY nitroglycerin 0.4 mg tablet, sublingual 0.4 mg SUBLINGUAL Q5M PRN (Reason: Chest Pain) Qty: 25 1RF amiodarone 200 mg tablet 200 mg PO DAILY carvedilol 12.5 mg tablet 12.5 mg PO BID Rx Instructions: must administer with a meal/food isosorbide mononitrate 60 mg tablet extended release 24 hr 60 mg PO DAILY Primary Care Provider: Kenji Osei Referrals: David Mcdonald MD [Non-Staff] - 5-7 Days Kenji Osei MD [Primary Care Provider] - 3-5 Days Activity Restrictions/Additional Instructions: Decrease your carvedilol to 6.25 mg twice daily. Disposition Disposition: Home, Self Care
[2022-07-13 16:57] VITALS: BP 143/56; BP 143/58; BP 155/63; PULSE 46; PULSE 48
[2022-07-13 18:00] VITALS: BP 139/53; PULSE 49; RESP 12; O2SAT 94
== END 2022-07-13 18:28 | disposition home or self-care (01) ==
PROVIDERS: Emergency Provider Emergency Medicine; PCP Internal Medicine; Visit Provider Emergency Medicine
DX: R00.1 Bradycardia, unspecified (principal); E87.5 Hyperkalemia; I10 Essential (primary) hypertension; I25.5 Ischemic cardiomyopathy; I25.10 Atherosclerotic heart disease of native coronary artery without angina pectoris; E78.00 Pure hypercholesterolemia, unspecified; I95.9 Hypotension, unspecified; I25.2 Old myocardial infarction; E03.9 Hypothyroidism, unspecified; Z79.899 Other long term (current) drug therapy; Z79.82 Long term (current) use of aspirin; Z79.01 Long term (current) use of anticoagulants; Z79.02 Long term (current) use of antithrombotics/antiplatelets; Z95.5 Presence of coronary angioplasty implant and graft
CPT/HCPCS: 71045; 80048; 84484; 85025; 93005; 96361; 96374; 96375; 99285; J7030; J7040; A4216; J0612

== ENCOUNTER 2022-07-26 06:18 | Outpatient (RCR) | payer MEDICARE, OTHER, SELFPAY ==
[2022-07-22 00:10] VITALS: BP 126/40; BP 144/54
== END 2022-08-20 23:59 ==
LOC: CR 06:18
PROVIDERS: PCP Internal Medicine; Referring Provider Internal Medicine Interventional Cardiology; Visit Provider Internal Medicine Interventional Cardiology
DX: Z95.5 Presence of coronary angioplasty implant and graft (principal)
CPT/HCPCS: 93798

== ENCOUNTER 2022-08-23 07:23 | Outpatient (RCR) | payer MEDICARE, OTHER, SELFPAY ==
[2022-08-21 00:27] VITALS: BP 126/40; BP 144/54
== END 2022-09-20 23:59 ==
LOC: CR 07:23
PROVIDERS: PCP Internal Medicine; Referring Provider Internal Medicine Interventional Cardiology; Visit Provider Internal Medicine Interventional Cardiology
DX: Z95.5 Presence of coronary angioplasty implant and graft (principal)
CPT/HCPCS: 93798

== ENCOUNTER 2022-10-24 14:47 | Emergency (ER) | payer MEDICARE, OTHER, SELFPAY ==
[2022-10-24 14:49] VITALS: BP 120/51; PULSE 50; RESP 18; TEMP 35.9; O2SAT 96; BMI 23.6
--- NOTE | 2022-10-24 14:59 | EX.ED.DYSGE1 ---
HPI <TISHA Aguirre - Last Filed: 10/24/22 15:39> History of Present Illness Chief Complaint: Lower Extremity Injury Narrative Narrative: Patient tripped on the sidewalk scraping her right elbow and injuring her left ankle. She was able to get up and walk home but has persistent ankle pain. No weakness or paresthesias. No head injury. 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 Non-rheumatic mitral regurgitation Nonrheumatic mitral valve disorder NSTEMI (non-ST elevation myocardial infarction) Old myocardial infarction Pure hypercholesterolemia Tachycardia Home Medications Handicap placard #1 ea 11/19/20 [Rx Last Taken Unknown] levothyroxine 75 mcg tablet 75 mcg PO DAILY thyroid 05/06/21 [History Last Taken 02/09/22] sertraline 50 mg tablet 50 mg PO DAILY ANXIETY 05/06/21 [History Last Taken 02/08/22] aspirin 81 mg tablet,delayed release 81 mg PO DAILY HEART 02/09/22 [History Last Taken 04/20/22 0430] hydroxyzine HCl 50 mg tablet 50 mg PO QHS PRN Sleep 02/09/22 [History Last Taken 02/08/22] nitroglycerin 0.4 mg sublingual tablet 0.4 mg sublingual Q5M PRN Chest Pain #25 tabs 02/25/22 [Rx Last Taken 04/20/22 04:30] apixaban 2.5 mg tablet (Eliquis) 2.5 mg PO DAILY 04/26/22 [History Last Taken Unknown] estradiol 0.01% (0.1 mg/gram) vaginal cream (Estrace) 1 g vaginal 2XW 04/26/22 [History Last Taken Unknown] melatonin 10 mg tablet 10 mg PO QHS SLEEP 04/26/22 [History Last Taken Unknown] neomycin-polymyxin B-dexameth eye drops,suspension 1 drp ophthalmic (eye) TID 04/26/22 [History Last Taken Unknown] omeprazole 20 mg capsule,delayed release 20 mg PO DAILY GERD 04/26/22 [History Last Taken Unknown] amiodarone 200 mg tablet 200 mg PO DAILY dose reduced at [facility]. 05/04/22 [History Last Taken Unknown] carvedilol 12.5 mg tablet 12.5 mg PO BID 05/04/22 [History Last Taken Unknown] isosorbide mononitrate 60 mg tablet,extended release 24 hr 60 mg PO DAILY 05/04/22 [History Last Taken Unknown] acetaminophen 325 mg tablet (Tylenol) 650 mg PO Q6H PRN Pain 06/13/22 [History Last Taken Unknown] calcium carbonate 600 mg calcium (1,500 mg) tablet 600 mg PO BID 06/13/22 [History Last Taken Unknown] clopidogrel 75 mg tablet 75 mg PO DAILY 06/13/22 [History Last Taken Unknown] losartan 50 mg tablet 50 mg PO BID 06/13/22 [History Last Taken Unknown] pravastatin 80 mg tablet 80 mg PO DAILY 06/13/22 [History Last Taken Unknown] spironolactone 25 mg tablet 12.5 mg PO DAILY 06/13/22 [History Last Taken Unknown] Allergy/AdvReac Type Severity Reaction Status Date / Time morphine AdvReac Severe Junctional Verified 10/24/22 14:49 rhythm lisinopril AdvReac Intermediate Cough Verified 10/24/22 14:49 Family History Mother Breast cancer Myocardial infarction CAD (coronary artery disease) Diabetes Father Myocardial infarction CAD (coronary artery disease) Brother Myocardial infarction Diabetes CAD (coronary artery disease) Sister Breast cancer Hypertension Surgical History Presence of coronary angioplasty implant and graft (~09/25/13) Social History household members: none Smoking Status: Never smoker alcohol intake: never substance use type: does not use caffeine: No what type of physical activity do you participate in: walking frequency: 3-4 times per week duration: 45-60 minutes/day seatbelt use: always do you feel safe at home: Yes ROS <TISHA Aguirre - Last Filed: 10/24/22 15:39> ROS ED ROS Narrative Neuro: Negative for motor/sensory dysfunction. Skin: Positive for abrasion. Musc: Positive for left ankle pain, swelling, trauma. Heme: Negative for easy bruising, bleeding, lymphadenopathy. EXAM <TISHA Aguirre - Last Filed: 10/24/22 15:39> Physical Exam Narrative Exam Narrative: CONST: Patient sitting in no acute distress. EYES: Normal inspection. NECK: Normal inspection. RESP: No respiratory distress, CTAB. CVS: Regular rate and rhythm, no murmur, no gallop. SKIN: Color normal, no rash, warm, dry, intact. EXTREMITIES: Normal appearance of upper and lower extremities, right elbow abrasion without bony tenderness, 2+ radial pulses. Swelling and tenderness left lateral malleolus, no tenderness of knee or foot. Achilles intact. 2+ DP pulses. NEURO: Oriented x4. PSYCH: Normal affect. Const Vital Signs: 10/24/22 14:49 Temperature 96.7 F L Temperature Source Temporal Pulse Rate 50 L Respiratory Rate 18 Blood Pressure 120/51 L Blood Pressure Mean 74 Pulse Ox 96 Oxygen Delivery Method Room Air <Dr. Tutu Acuna, DO - Last Filed: 10/24/22 15:42> Physical Exam Const Vital Signs: 10/24/22 14:49 Temperature 96.7 F L Temperature Source Temporal Pulse Rate 50 L Respiratory Rate 18 Blood Pressure 120/51 L Blood Pressure Mean 74 Pulse Ox 96 Oxygen Delivery Method Room Air MDM <TISHA Aguirre - Last Filed: 10/24/22 15:39> [facility] MDM Narrative Medical decision making narrative: Patient had mechanical fall and scraped her right elbow and injured her left ankle. She is able to ambulate. Right elbow has a small abrasion but no bony tenderness and full range of motion so I do not think an x-ray is indicated. Left lateral ankle swollen but stable and neurovascularly intact. Ankle x-ray shows no acute fracture or dislocation. I provided an Aircast and she declined pain medication. She states she is able to ambulate and will follow RICE protocol. Patient was discharged in stable condition. Differential: Ankle sprain versus fracture Radiography Diagnostic Testing: Clinical Impression(s) from Imaging Studies Ankle X-Ray 10/24/22 15:00 IMPRESSION: No acute fracture or dislocation. Lateral soft tissue swelling consistent with ligamentous injury. Electronically Signed: Darwin Landis MD at 15:29 EDT , ED attending interpretation of left ankle shows no acute fracture or dislocation. <Dr. Tutu Acuna, DO - Last Filed: 10/24/22 15:42> [facility] MDM Narrative Medical decision making narrative: Patient had mechanical fall and scraped her right elbow and injured her left ankle. She is able to ambulate. Right elbow has a small abrasion but no bony tenderness and full range of motion so I do not think an x-ray is indicated. Left lateral ankle swollen but stable and neurovascularly intact. Ankle x-ray shows no acute fracture or dislocation. I provided an Aircast and she declined pain medication. She states she is able to ambulate and will follow RICE protocol. Patient was discharged in stable condition. Differential: Ankle sprain versus fracture This patient was seen with a PA/PAYROLL OFFICER Individually assessed they patient including history and physical. I have reviewed everything on the chart that is available and agree with the documentation provided by the PA/PAYROLL OFFICER including discussion about the assessment, treatment plan, discussion, and return precautions. Patient with significant left lateral malleolus swelling. No evidence of other deformity. X-rays of the left ankle interpretation show no fracture or subluxation. Patient was placed in Alexx wrap and Aircast. She declines crutches. She is ambulatory. She states she will take Tylenol for pain. Radiography Diagnostic Testing: Clinical Impression(s) from Imaging Studies Ankle X-Ray 10/24/22 15:00 IMPRESSION: No acute fracture or dislocation. Lateral soft tissue swelling consistent with ligamentous injury. Electronically Signed: Darwin Landis MD at 15:29 EDT , Discharge Plan Triage Chief Complaint: Lower Extremity Injury ED Midlevel Provider: Laine Armstrong ED Provider: Tutu Acuna Dx/Rx/DC Orders Clinical Impression: Left ankle sprain, Abrasion of elbow, right Instructions: ED Ankle Sprain (Adult) Prescriptions: No Action sertraline 50 mg tablet 50 mg PO DAILY Eliquis 2.5 mg tablet 2.5 mg PO DAILY neomycin-polymyxin B-dexameth Drops,Suspension 1 drp ophthalmic (eye) TID estradiol [Estrace] 0.01 % (0.1 mg/gram) cream 1 g vaginal 2XW omeprazole 20 mg capsule,delayed release(DR/EC) 20 mg PO DAILY Patient Comments: STOMACH MEDICINE, ACID REFLUX hydroxyzine HCl 50 mg tablet 50 mg PO QHS PRN (Reason: Sleep) Patient Comments: TAKE 1 TABLET BY MOUTH AT BEDTIME NEEDED FOR ANXIETY/INSOMNIA aspirin 81 mg Tablet,Delayed Release (Dr/Ec) 81 mg PO DAILY melatonin 10 mg tablet 10 mg PO QHS losartan 50 mg Tablet 50 mg PO BID acetaminophen [Tylenol] 325 mg Tablet 650 mg PO Q6H PRN (Reason: Pain) clopidogrel 75 mg tablet 75 mg PO DAILY spironolactone 25 mg Tablet 12.5 mg PO DAILY calcium carbonate [Nitin-600] 600 mg calcium (1,500 mg) Tablet 600 mg PO BID pravastatin 80 mg Tablet 80 mg PO DAILY (DME) Handicap placard See Rx Instructions .Route .MEDSUPPLY Qty: 1 0RF Rx Instructions: Lifetime levothyroxine 75 mcg tablet 75 mcg PO DAILY nitroglycerin 0.4 mg tablet, sublingual 0.4 mg SUBLINGUAL Q5M PRN (Reason: Chest Pain) Qty: 25 1RF amiodarone 200 mg tablet 200 mg PO DAILY carvedilol 12.5 mg tablet 12.5 mg PO BID Rx Instructions: must administer with a meal/food isosorbide mononitrate 60 mg tablet extended release 24 hr 60 mg PO DAILY Primary Care Provider: Kenji Osei Referrals: Kenji Osei MD [Primary Care Provider] - Activity Restrictions/Additional Instructions: Rest and ice your ankle. Elevate to reduce swelling and take Tylenol as needed. If not improving in 7 to 10 days please see your primary care doctor. Disposition Disposition: Home, Self Care
--- NOTE | 2022-10-24 15:00 | RAD_ITS ---
STUDY: X-RAY - LEFT ANKLE REASON FOR EXAM: Female, 81 years old. pain TECHNIQUE: 3 view(s) of the ankle. COMPARISON: None. FINDINGS: Normal visualized distal tibia and fibula. Normal medial and lateral malleoli. Normal tibiotalar articulation and ankle mortise. Normal visualized talus and calcaneus. The visualized subtalar, talonavicular, calcaneocuboid and tarsal articulations are normal. Lateral soft tissue swelling consistent with ligament injury. RAD/Ankle min 3 Views IMPRESSION: No acute fracture or dislocation. Lateral soft tissue swelling consistent with ligamentous injury. Electronically Signed: Darwin Landis MD at 15:29 EDT ,
== END 2022-10-24 15:58 | disposition home or self-care (01) ==
LOC: ED 15:58
PROVIDERS: Emergency Provider Student in an Organized Health Care Education/Training Program; PCP Internal Medicine; Visit Provider Student in an Organized Health Care Education/Training Program
DX: S93.402A Sprain of unspecified ligament of left ankle, initial encounter (principal); S50.311A Abrasion of right elbow, initial encounter; I25.10 Atherosclerotic heart disease of native coronary artery without angina pectoris; I25.2 Old myocardial infarction; W22.8XXA Striking against or struck by other objects, initial encounter; Z95.5 Presence of coronary angioplasty implant and graft
CPT/HCPCS: 73610; 99283

== ENCOUNTER 2023-02-09 14:19 | Emergency (ER) | payer MEDICARE, OTHER, SELFPAY ==
[2023-02-09 14:21] VITALS: BP 149/59; PULSE 89; RESP 14; TEMP 36.6; O2SAT 98; BMI 23.1
[2023-02-09] MEDS: Ondansetron ODT 4 MG Tablet PO (15:34)
[2023-02-09 16:19] VITALS: BP 124/80; PULSE 76; RESP 16; O2SAT 97
--- NOTE | 2023-02-09 16:22 | ED.VIS.GI ---
HPI HPI - GI History of Present Illness Chief Complaint: Nausea/Vomiting/Diarrhea Narrative Narrative: 82-year-old female presenting with nausea and vomiting. This started this morning. Patient states that last night she went to an event where there was a lot of dishes passed around and she was concerned she might of eaten something that was bad. Patient also states she had a sore throat, congestion 3 days prior to this event. She has not a fever. She denies chest pain or shortness of breath. She states that she had a lot of diarrhea today and was trying to be seen by her PCP who sent her to the emergency room. [facility] Medical History Abnormal ECG Abnormal serum enzyme level Abnormal stress test Angina pectoris Atherosclerotic heart disease of [place] coronary artery without angina pectoris Bladder prolapse Chest pain Essential hypertension History of coronary artery stent placement (~09/25/13) Hypothyroidism Ischemic cardiomyopathy correction use of drug Non-rheumatic mitral regurgitation Nonrheumatic mitral valve disorder NSTEMI (non-ST elevation myocardial infarction) Old myocardial infarction Pure hypercholesterolemia Tachycardia Home Medications Handicap placard #1 ea 11/19/20 [Rx Last Taken Unknown] levothyroxine 75 mcg tablet 75 mcg PO DAILY thyroid 05/06/21 [History Last Taken 02/09/23] sertraline 50 mg tablet 50 mg PO DAILY ANXIETY 05/06/21 [History Last Taken 02/09/23] aspirin 81 mg tablet,delayed release 81 mg PO DAILY HEART 02/09/22 [History Last Taken 02/09/23] hydroxyzine HCl 50 mg tablet 50 mg PO QHS PRN Sleep 02/09/22 [History Last Taken 02/08/22] nitroglycerin 0.4 mg sublingual tablet 0.4 mg sublingual Q5M PRN Chest Pain #25 tabs 02/25/22 [Rx Last Taken 04/20/22 04:30] apixaban 2.5 mg tablet (Eliquis) 2.5 mg PO DAILY 04/26/22 [History Last Taken 02/09/23] estradiol 0.01% (0.1 mg/gram) vaginal cream (Estrace) 1 g vaginal 2XW 04/26/22 [History Last Taken Unknown] melatonin 10 mg tablet 10 mg PO QHS SLEEP 04/26/22 [History Last Taken 02/08/23] neomycin-polymyxin B-dexameth eye drops,suspension 1 drp ophthalmic (eye) TID 04/26/22 [History Last Taken Unknown] omeprazole 20 mg capsule,delayed release 20 mg PO DAILY GERD 04/26/22 [History Last Taken 02/09/23] amiodarone 200 mg tablet 200 mg PO DAILY dose reduced at [facility]. 05/04/22 [History Last Taken 02/09/23] carvedilol 12.5 mg tablet 12.5 mg PO BID 05/04/22 [History Last Taken Unknown] isosorbide mononitrate 60 mg tablet,extended release 24 hr 60 mg PO DAILY 05/04/22 [History Last Taken 02/09/23] acetaminophen 325 mg tablet (Tylenol) 650 mg PO Q6H PRN Pain 06/13/22 [History Last Taken Unknown] calcium carbonate 600 mg calcium (1,500 mg) tablet 600 mg PO BID 06/13/22 [History Last Taken 02/09/23] clopidogrel 75 mg tablet 75 mg PO DAILY 06/13/22 [History Last Taken 02/09/23] losartan 50 mg tablet 50 mg PO BID 06/13/22 [History Last Taken 02/09/23] pravastatin 80 mg tablet 80 mg PO DAILY 06/13/22 [History Last Taken 02/09/23] dicyclomine 10 mg capsule 10 mg PO TID PRN abdominal cramps #14 caps 02/09/23 [Rx Last Taken Unknown] ondansetron 4 mg disintegrating tablet 4 mg PO Q8H PRN PRN Nausea #14 tabs 02/09/23 [Rx Last Taken Unknown] Allergy/AdvReac Type Severity Reaction Status Date / Time morphine AdvReac Severe Junctional Verified 02/09/23 14:21 rhythm lisinopril AdvReac Intermediate Cough Verified 02/09/23 14:21 Family History Mother Breast cancer Myocardial infarction CAD (coronary artery disease) Diabetes Father Myocardial infarction CAD (coronary artery disease) Brother Myocardial infarction Diabetes CAD (coronary artery disease) Sister Breast cancer Hypertension Surgical History Presence of coronary angioplasty implant and graft (~09/25/13) Social History household members: none Smoking Status: Never smoker alcohol intake: never substance use type: does not use caffeine: No what type of physical activity do you participate in: walking frequency: 3-4 times per week duration: 45-60 minutes/day seatbelt use: always do you feel safe at home: Yes ROS ROS ED Constitutional Constitutional ED: Denies chills, fever(s) or sweats Eyes Eyes: Denies blurry vision or change in vision ENT ENT ED: Denies ear pain or sore throat Cardiovascular Cardiovascular: Denies chest pain, palpitations or racing heartbeat Respiratory/Chest Respiratory/Chest: Denies cough, dyspnea or sputum Gastrointestinal Gastrointestinal: Reports abdominal pain, nausea and vomiting; Denies constipation or diarrhea Genitourinary Genitourinary ED: Denies dysuria, hematuria or urinary frequency Musculoskeletal Musculoskeletal: Denies arthralgias, myalgias or neck pain Integumentary Denies abscess, Abrasions or rash Neurologic Neurologic: Denies headache(s), paresthesias or weakness Psychiatric Psychiatric: Denies anxiety, depression, suicidal ideation or suicidal thoughts Endocrine Endocrinology: Denies polydipsia or polyuria EXAM Physical Exam Const Vital Signs: 02/09/23 14:21 Temperature 98 F Temperature Source Temporal Pulse Rate 89 Respiratory Rate 14 Blood Pressure 149/59 H Blood Pressure Mean 89 Pulse Ox 98 Oxygen Delivery Method Room Air Positive well nourished General Appearance ED: NAD; Negative for pallor HEENT Reports moist mucous membranes normocephalic and atraumatic Eyes PERRL and EOMs intact bilaterally Resp normal respiratory effort and clear to auscultation bilaterally Auscultation: Negative for rales, rhonchi or wheezes Cardio regular rate and regular rhythm GI non-tender, non-distended and no masses Back/Spine no CVA tenderness Neuro CN's II-XII intact bilaterally Sensorium / Orientation: alert Psych mental status grossly normal Skin no wounds General Skin Exam: Negative for jaundice or pallor MDM MDM MDM Narrative Medical decision making narrative: Patient presenting with nausea, vomiting diarrhea. Differential includes viral etiology versus food poisoning. Discussed giving oral Zofran and a p.o. challenge versus doing lab work and patient is amenable to Zofran p.o. challenge. She was given Zofran and was able to sip water after this she feels improved. I will give her Daryn and Kalia for home. She is counseled to hydrate well. Return precautions discussed. Impression: 1. Nausea/vomiting 2. Diarrhea Lab Data Attestation: I reviewed the patient's lab results. Discharge Plan Triage Chief Complaint: Nausea/Vomiting/Diarrhea ED Provider: Tutu Acuna Dx/Rx/DC Orders Instructions: ED Food Poisoning (Adult), ED Gastroenteritis, Viral (Adult) Prescriptions: New ondansetron 4 mg tablet,disintegrating 4 mg PO Q8H PRN PRN (Reason: Nausea) Qty: 14 0RF dicyclomine 10 mg capsule 10 mg PO TID PRN (Reason: abdominal cramps) Qty: 14 0RF No Action sertraline 50 mg tablet 50 mg PO DAILY Eliquis 2.5 mg tablet 2.5 mg PO DAILY neomycin-polymyxin B-dexameth Drops,Suspension 1 drp ophthalmic (eye) TID estradiol [Estrace] 0.01 % (0.1 mg/gram) cream 1 g vaginal 2XW omeprazole 20 mg capsule,delayed release(DR/EC) 20 mg PO DAILY Patient Comments: STOMACH MEDICINE, ACID REFLUX hydroxyzine HCl 50 mg tablet 50 mg PO QHS PRN (Reason: Sleep) Patient Comments: TAKE 1 TABLET BY MOUTH AT BEDTIME NEEDED FOR ANXIETY/INSOMNIA aspirin 81 mg Tablet,Delayed Release (Dr/Ec) 81 mg PO DAILY melatonin 10 mg tablet 10 mg PO QHS losartan 50 mg Tablet 50 mg PO BID acetaminophen [Tylenol] 325 mg Tablet 650 mg PO Q6H PRN (Reason: Pain) clopidogrel 75 mg tablet 75 mg PO DAILY calcium carbonate [Nitin-600] 600 mg calcium (1,500 mg) Tablet 600 mg PO BID pravastatin 80 mg Tablet 80 mg PO DAILY (DME) Handicap placard See Rx Instructions .Route .MEDSUPPLY Qty: 1 0RF Rx Instructions: Lifetime levothyroxine 75 mcg tablet 75 mcg PO DAILY nitroglycerin 0.4 mg tablet, sublingual 0.4 mg SUBLINGUAL Q5M PRN (Reason: Chest Pain) Qty: 25 1RF amiodarone 200 mg tablet 200 mg PO DAILY carvedilol 12.5 mg tablet 12.5 mg PO BID Hold Instructions: MD Ordered Rx Instructions: must administer with a meal/food isosorbide mononitrate 60 mg tablet extended release 24 hr 60 mg PO DAILY Primary Care Provider: Kenji Osei Referrals: Kenji Osei MD [Primary Care Provider] - Disposition Disposition: Home, Self Care
[2023-02-09 17:00] VITALS: BP 118/76; PULSE 72; RESP 16; TEMP 36.7; O2SAT 98
== END 2023-02-09 17:02 | disposition home or self-care (01) ==
PROVIDERS: Emergency Provider Student in an Organized Health Care Education/Training Program; PCP Internal Medicine; Visit Provider Student in an Organized Health Care Education/Training Program
DX: R11.2 Nausea with vomiting, unspecified (principal); R19.7 Diarrhea, unspecified; I25.5 Ischemic cardiomyopathy; I10 Essential (primary) hypertension; E78.00 Pure hypercholesterolemia, unspecified; I25.10 Atherosclerotic heart disease of native coronary artery without angina pectoris; I25.2 Old myocardial infarction; E03.9 Hypothyroidism, unspecified; Z79.82 Long term (current) use of aspirin; Z79.01 Long term (current) use of anticoagulants; Z79.899 Other long term (current) drug therapy; Z95.5 Presence of coronary angioplasty implant and graft
CPT/HCPCS: 99284; J7030; A4216

== ENCOUNTER 2023-06-22 04:23 | Emergency (ER) | payer MEDICARE, OTHER, SELFPAY ==
[2023-06-22 04:24] VITALS: BP 197/99; PULSE 85; RESP 18; TEMP 36.1; O2SAT 96; BMI 23.3
[2023-06-22 04:27] VITALS: BP 197/99
--- NOTE | 2023-06-22 04:46 | ED.VIS.BACK ---
HPI History of Present Illness Chief Complaint: Back Informant: patient Onset/Context/Timing Onset: Days Context: Gradual Onset Injury: - (Denies any recent injury.) Timing: Continuous Quality: Sharp and Aching Location: Lumbar Current Severity: Moderate Maximum Severity: Moderate Worsened by: improves with Movement Relieved by: Nothing Associated Symptoms Associated Symptoms: Negative for Numbness, Tingling, Radiation to Right Leg, Radiation to Left Leg, Fever, Abdominal Pain, Dysuria, Unable to Ambulate, Unable to Transfer, Urinary Retention, Urinary Incontinence, Constipation or Fecal Incontinence Narrative Narrative: 82-year-old female history of CAD with stents. States she has had back pain for the last several days. Yesterday saw Dr. Gonzales of orthopedic spine with [facility]. He reportedly did x-rays in their office. Told her she may need a follow-up MRI. Prescribed her tramadol for pain. Patient states that she would like the MRI tonight. And does not believe the tramadol is controlling her pain well enough. She denies any fall. No fever or dysuria. No bowel or bladder incontinence. No prior back surgeries. No leg weakness. No radiation of pain down either leg. 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 Non-rheumatic mitral regurgitation Nonrheumatic mitral valve disorder NSTEMI (non-ST elevation myocardial infarction) Old myocardial infarction Pure hypercholesterolemia Tachycardia Home Medications Handicap anthony #1 ea 11/19/20 [Rx Last Taken Unknown] levothyroxine 75 mcg tablet 75 mcg PO DAILY thyroid 05/06/21 [History Last Taken 02/09/23] sertraline 50 mg tablet 50 mg PO DAILY ANXIETY 05/06/21 [History Last Taken 02/09/23] aspirin 81 mg tablet,delayed release 81 mg PO DAILY HEART 02/09/22 [History Last Taken 02/09/23] hydroxyzine HCl 50 mg tablet 50 mg PO QHS PRN Sleep 02/09/22 [History Last Taken 02/08/22] nitroglycerin 0.4 mg sublingual tablet 0.4 mg sublingual Q5M PRN Chest Pain #25 tabs 02/25/22 [Rx Last Taken 04/20/22 04:30] apixaban 2.5 mg tablet (Eliquis) 2.5 mg PO DAILY 04/26/22 [History Last Taken 02/09/23] estradiol 0.01% (0.1 mg/gram) vaginal cream (Estrace) 1 g vaginal 2XW 04/26/22 [History Last Taken Unknown] melatonin 10 mg tablet 10 mg PO QHS SLEEP 04/26/22 [History Last Taken 02/08/23] neomycin-polymyxin B-dexameth eye drops,suspension 1 drp ophthalmic (eye) TID 04/26/22 [History Last Taken Unknown] omeprazole 20 mg capsule,delayed release 20 mg PO DAILY GERD 04/26/22 [History Last Taken 02/09/23] amiodarone 200 mg tablet 200 mg PO DAILY dose reduced at [facility]. 05/04/22 [History Last Taken 02/09/23] carvedilol 12.5 mg tablet 12.5 mg PO BID 05/04/22 [History Last Taken Unknown] isosorbide mononitrate 60 mg tablet,extended release 24 hr 60 mg PO DAILY 05/04/22 [History Last Taken 02/09/23] acetaminophen 325 mg tablet (Tylenol) 650 mg PO Q6H PRN Pain 06/13/22 [History Last Taken Unknown] calcium carbonate 600 mg PO BID 06/13/22 [History Last Taken 02/09/23] clopidogrel 75 mg tablet 75 mg PO DAILY 06/13/22 [History Last Taken 02/09/23] losartan 50 mg tablet 50 mg PO BID 06/13/22 [History Last Taken 02/09/23] pravastatin 80 mg tablet 80 mg PO DAILY 06/13/22 [History Last Taken 02/09/23] ondansetron 4 mg disintegrating tablet 4 mg PO Q8H PRN PRN Nausea #14 tabs 02/09/23 [Rx Last Taken Unknown] tramadol 50 mg tablet 50 mg PO TID PRN pain 06/22/23 [History Last Taken Unknown] Allergy/AdvReac Type Severity Reaction Status Date / Time morphine AdvReac Severe Junctional Verified 02/09/23 14:21 rhythm lisinopril AdvReac Intermediate Cough Verified 02/09/23 14:21 Family History Mother Breast cancer Myocardial infarction CAD (coronary artery disease) Diabetes Father Myocardial infarction CAD (coronary artery disease) Brother Myocardial infarction Diabetes CAD (coronary artery disease) Sister Breast cancer Hypertension Surgical History Presence of coronary angioplasty implant and graft (~09/25/13) Social History household members: none Smoking Status: Never smoker alcohol intake: never substance use type: does not use caffeine: No what type of physical activity do you participate in: walking frequency: 3-4 times per week duration: 45-60 minutes/day seatbelt use: always do you feel safe at home: Yes ROS ROS ED ROS Narrative Patient denies recent illness. She denies any incontinence. She denies any leg weakness or radiculopathy. She denies any fever. Review of Systems ROS Unobtainable: Denies due to encephalopathy Constitutional Constitutional ED: Denies chills or fever(s) ENT ENT ED: Denies ear pain Cardiovascular Cardiovascular: Denies chest pain Respiratory/Chest Respiratory/Chest: Denies dyspnea Gastrointestinal Gastrointestinal: Denies abdominal pain, nausea or vomiting Genitourinary Genitourinary ED: Denies dysuria or hematuria Musculoskeletal Musculoskeletal: Reports back pain; Denies arthralgias, myalgias or neck pain Integumentary Denies abscess or Abrasions Neurologic Neurologic: Denies headache(s) Psychiatric Psychiatric: Denies anxiety Endocrine Endocrinology: Denies cold intolerance Hematologic/Lymphatic Hematologic/Lymphatic: Denies easy bleeding Allergic/Immunologic Allergic/Immunologic ED: Denies mouth swelling EXAM Physical Exam Narrative Exam Narrative: Well-appearing 82-year-old female. Vital signs are stable and afebrile. She does not look septic or toxic. She is sitting upright in bed. H EENT exam unremarkable. Neck nontender. No lymphadenopathy. Lungs clear to auscultation bilaterally. Heart regular rhythm rate about 85 no murmur. Chest wall and ribs nontender. Abdomen soft nontender. No pulsatile mass. No peritoneal signs. Moving all 4 extremities. 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 Dorsi and plantarflexion intact equal and symmetrical. Normal medial thigh sensation. No cauda equina or saddle anesthesia. Negative straight leg raise bilaterally. She can lift either leg off the bed. Back cervical and thoracic spine are nontender. She has tenderness over her lumbar spine along the level of the iliac crest. There is no redness or warmth. There is no bruising or signs of trauma. Neurologically she is awake and alert. She has normal strength in both upper and lower extremities. No cauda equina. She has normal medial thigh sensation. Normal dorsi and plantarflexion. Negative straight leg raise bilaterally. Const Vital Signs: 06/22/23 04:24 06/22/23 04:27 Temperature 97 F L Temperature Source Temporal Pulse Rate 85 Respiratory Rate 18 Blood Pressure 197/99 H 197/99 H Blood Pressure Mean 131 131 Pulse Ox 96 Oxygen Delivery Method Room Air Positive well nourished and well developed; Negative for cachectic, contractures or unkempt General Appearance ED: well developed and NAD; Negative for unkempt, cachectic, contractures or pallor Nutritional Appearance: Negative for cachectic HEENT Reports moist mucous membranes; Denies dry mucous membranes Negative for trauma or tenderness Mouth ED: No dry mucous membranes Mouth: No dry mucous membranes Eyes PERRL and EOMs intact bilaterally General Eye ED: Negative for pale conjunctiva or scleral icterus Neck no lymphadenopathy, supple and no JVD General: Negative for tenderness Resp normal respiratory effort and clear to auscultation bilaterally Effort and Inspection: Negative for pain with movement Auscultation: Negative for rales, rhonchi, wheezes or diminished lung sounds Cardio regular rate, regular rhythm, S1 normal heart sound, S2 normal heart sound and no murmurs Palpation: Negative for palpable S3 Rate: Negative for bradycardia or tachycardic Rhythm: Negative for abnormal rhythm Bruits: Negative for other GI normal to inspection, nondistended, normoactive bowel sounds, soft to palpation, non-tender, non-distended and no masses Inspection: Negative for abdominal distention Palpation: Negative for tender, guarding or rebound tenderness present Back/Spine normal to inspection; Negative for no thoracic nor lumbar tenderness Back/Spine Narrative: Tenderness over the lumbar spine and iliac crest level. No signs of trauma. No bruising. No redness or warmth. Cervical Spine: Negative for cervical spine tenderness and Negative for paracervical muscle tenderness Thoracic Spine / Upper Back: Negative for paraspinal muscle tenderness Lumbar Spine / Lower Back: straight leg raise negative bilaterally Extremity normal to inspection and no clubbing, cyanosis or edema General Extremety ED: Negative for edema or tenderness General Extremity: Negative for edema Neuro oriented x3 and no sensory deficits noted Neuro Narrative: Normal strength bilateral lower extremities. Normal dorsi plantarflexion. No cauda equina. No saddle anesthesia. Normal medial thigh sensation. Sensorium / Orientation: alert; Negative for confused, lethargic or stuporous Motor Exam: strength 5/5 throughout Psych mental status grossly normal Appearance: Negative for unkempt Attitude: No agitated Mood & Affect: Negative for depressed, sad or tearful Skin no rashes or lesions noted and no wounds General Skin Exam: Negative for jaundice or pallor Lesions: No lesion noted Rashes: No rashes noted Trauma: Negative for abrasion or puncture Wounds: Negative for wounds noted MDM MDM MDM Narrative Medical decision making narrative: 82-year-old female with several day history of lumbar spine pain. Saw orthopedic spine surgeon, Dr. Gonzales, yesterday. He prescribed her tramadol. Reportedly did x-rays. She may need an MRI she does not need it emergently. There is no one available at this time to do it at this facility and she does not have any loss of strength or sensation in either lower extremity. She has no history of bowel or bladder incontinence or retention. And she has normal strength and sensation in both lower extremities. No fever. She will be given an IM injection of morphine for pain. Zofran to prevent nausea p.o. Outpatient follow-up with Dr. Gonzales. History & Record Review Discussion w/independent historian: Patient Additional record(s) reviewed:: Prior inpatient record, Prior outpatient record, Prior ED visit and Prior labs Discharge Plan Triage Chief Complaint: Back ED Provider: Kentrell Lindsey Dx/Rx/DC Orders Clinical Impression: Arthritis, Back pain, History of CAD (coronary artery disease) Instructions: ED Back Pain (Acute or Chronic) Prescriptions: No Action sertraline 50 mg tablet 50 mg PO DAILY Eliquis 2.5 mg tablet 2.5 mg PO DAILY neomycin-polymyxin B-dexameth Drops,Suspension 1 drp ophthalmic (eye) TID estradiol [Estrace] 0.01 % (0.1 mg/gram) cream 1 g vaginal 2XW omeprazole 20 mg capsule,delayed release(DR/EC) 20 mg PO DAILY Patient Comments: STOMACH MEDICINE, ACID REFLUX hydroxyzine HCl 50 mg tablet 50 mg PO QHS PRN (Reason: Sleep) Patient Comments: TAKE 1 TABLET BY MOUTH AT BEDTIME NEEDED FOR ANXIETY/INSOMNIA aspirin 81 mg Tablet,Delayed Release (Dr/Ec) 81 mg PO DAILY melatonin 10 mg tablet 10 mg PO QHS losartan 50 mg Tablet 50 mg PO BID acetaminophen [Tylenol] 325 mg Tablet 650 mg PO Q6H PRN (Reason: Pain) clopidogrel 75 mg tablet 75 mg PO DAILY calcium carbonate [Nitin-600] 600 mg calcium (1,500 mg) Tablet 600 mg PO BID pravastatin 80 mg Tablet 80 mg PO DAILY ondansetron 4 mg tablet,disintegrating 4 mg PO Q8H PRN PRN (Reason: Nausea) Qty: 14 0RF tramadol 50 mg tablet 50 mg PO TID PRN (DME) Handicap placard See Rx Instructions .Route .MEDSUPPLY Qty: 1 0RF Rx Instructions: Lifetime levothyroxine 75 mcg tablet 75 mcg PO DAILY nitroglycerin 0.4 mg tablet, sublingual 0.4 mg SUBLINGUAL Q5M PRN (Reason: Chest Pain) Qty: 25 1RF amiodarone 200 mg tablet 200 mg PO DAILY carvedilol 12.5 mg tablet 12.5 mg PO BID Hold Instructions: MD Ordered Rx Instructions: must administer with a meal/food isosorbide mononitrate 60 mg tablet extended release 24 hr 60 mg PO DAILY Primary Care Provider: Kenji Osei Referrals: Judd Gonzales DO [Med Staff - Active Staff] - As soon as possible Kenji Osei MD [Primary Care Provider] - As Needed Activity Restrictions/Additional Instructions: Continue your tramadol that Dr. Gonzales prescribed for you for your pain. Call and follow-up with his office soon as possible. See if they can work on getting that MRI obtained of your lower back. Disposition Disposition: Home, Self Care
[2023-06-22] MEDS: Ondansetron ODT 4 MG Tablet PO (05:14)
[2023-06-22] MEDS: fentaNYL 100 MCG/2 ML Ampul 50 MCG IM (05:44)
[2023-06-22 05:48] VITALS: BP 160/53; PULSE 55; RESP 16; TEMP 36.7; O2SAT 97
== END 2023-06-22 05:50 | disposition home or self-care (01) ==
PROVIDERS: Emergency Provider Emergency Medicine; PCP Internal Medicine; Visit Provider Emergency Medicine
DX: M19.90 Unspecified osteoarthritis, unspecified site (principal); M54.50 Low back pain, unspecified; I25.10 Atherosclerotic heart disease of native coronary artery without angina pectoris; I25.2 Old myocardial infarction; Z79.01 Long term (current) use of anticoagulants; Z79.82 Long term (current) use of aspirin; Z79.899 Other long term (current) drug therapy; Z95.5 Presence of coronary angioplasty implant and graft
CPT/HCPCS: 96372; 99283

== ENCOUNTER 2023-06-30 13:44 | Inpatient (IN) | payer MEDICARE, OTHER, SELFPAY ==
[2023-06-30] VITALS (7 sets, daily range): BP systolic 120–164; BP diastolic 55–115; PULSE 57–74; RESP 13–18; TEMP 36.6–36.8; O2SAT 84–98; BMI 24.7; BMI 23.5
[2023-06-30] MEDS: Ondansetron 4 MG/2 ML Vial IV ×2 (14:10→22:30)
[2023-06-30] MEDS: Morphine 4 MG/ML Syringe IV ×2 (14:11→16:50)
[2023-06-30] MEDS: Orphenadrine 100 MG Tablet PO (14:14)
--- NOTE | 2023-06-30 14:16 | ED.RN ---
PT REFUSES TO CHANGE CLOTHES AT THIS TIME
--- NOTE | 2023-06-30 14:23 | EDS_ITS ---
HPI <TISHA Albarado - Last Filed: 06/30/23 17:53> History of Present Illness Chief Complaint: Fall Narrative Narrative: Patient presenting today due to a fall that occurred earlier this afternoon. She reports that she was napping in her chair, she got up and had a spasm in her back causing her to lose her balance and fall onto her left side. She was unable to stand after that due to left hip pain but was able to crawl to the phone to call for help. She denies hitting her head or any LOC. She reports that she has had chronic low back pain and back spasms, she is following with Dr. Gonzales for this and recently had an MRI of her back. She is supposed to see him again on Tuesday. She denies any bowel/bladder habits or saddle paresthesia. PFS <TISHA Albarado - Last Filed: 06/30/23 17:53> [facility] Medical History Abnormal ECG Abnormal serum enzyme level Abnormal stress test Angina pectoris Atherosclerotic heart disease of [place] coronary artery without angina pectoris Bladder prolapse Chest pain Essential hypertension History of coronary artery stent placement (~09/25/13) Hypothyroidism Ischemic cardiomyopathy retirement use of drug Non-rheumatic mitral regurgitation Nonrheumatic mitral valve disorder NSTEMI (non-ST elevation myocardial infarction) Old myocardial infarction Pure hypercholesterolemia Tachycardia Home Medications Handicap placard #1 ea 11/19/20 [Rx Last Taken Unknown] sertraline 50 mg tablet 50 mg PO DAILY ANXIETY 05/06/21 [History Last Taken 06/30/23] hydroxyzine HCl 50 mg tablet 50 mg PO QHS PRN Sleep 02/09/22 [History Last Taken 02/08/22] nitroglycerin 0.4 mg sublingual tablet 0.4 mg sublingual Q5M PRN Chest Pain #25 tabs 02/25/22 [Rx Last Taken 04/20/22 04:30] apixaban 2.5 mg tablet (Eliquis) 2.5 mg PO Q12H 04/26/22 [History Last Taken 06/30/23] melatonin 10 mg tablet 10 mg PO QHS SLEEP 04/26/22 [History Last Taken 06/29/23] omeprazole 20 mg capsule,delayed release 20 mg PO DAILY GERD 04/26/22 [History Last Taken 06/30/23] amiodarone 200 mg tablet 200 mg PO DAILY dose reduced at [facility]. 05/04/22 [History Last Taken 06/30/23] acetaminophen 325 mg tablet (Tylenol) 650 mg PO Q6H PRN Pain 06/13/22 [History Last Taken Unknown] clopidogrel 75 mg tablet 75 mg PO DAILY 06/13/22 [History Last Taken 06/30/23] losartan 50 mg tablet 50 mg PO BID 06/13/22 [History Last Taken 06/30/23] pravastatin 80 mg tablet 80 mg PO DAILY 06/13/22 [History Last Taken 06/30/23] ondansetron 4 mg disintegrating tablet 4 mg PO Q8H PRN PRN Nausea #14 tabs 02/09/23 [Rx Last Taken Unknown] tramadol 50 mg tablet 50 mg PO TID PRN pain 06/22/23 [History Last Taken Unknown] amlodipine 5 mg tablet 5 mg PO DAILY 06/30/23 [History Last Taken 06/30/23] carvedilol 6.25 mg tablet 3.125 mg PO BID 06/30/23 [History Last Taken 06/30/23] ezetimibe 10 mg tablet 10 mg PO DAILY 06/30/23 [History Last Taken Unknown] levothyroxine 112 mcg tablet 112 mcg PO DAILY 06/30/23 [History Last Taken 06/30/23] Allergy/AdvReac Type Severity Reaction Status Date / Time lisinopril AdvReac Intermediate Cough Verified 06/30/23 13:50 Family History Mother Breast cancer Myocardial infarction CAD (coronary artery disease) Diabetes Father Myocardial infarction CAD (coronary artery disease) Brother Myocardial infarction Diabetes CAD (coronary artery disease) Sister Breast cancer Hypertension Surgical History Presence of coronary angioplasty implant and graft (~09/25/13) Social History household members: none Smoking Status: Never smoker alcohol intake: never substance use type: does not use caffeine: No what type of physical activity do you participate in: walking frequency: 3-4 times per week duration: 45-60 minutes/day seatbelt use: always do you feel safe at home: Yes ROS <TISHA Albarado - Last Filed: 06/30/23 17:53> ROS ED Constitutional Constitutional ED: Denies chills or fever(s) Cardiovascular Cardiovascular: Denies chest pain or palpitations Respiratory/Chest Respiratory/Chest: Denies cough or dyspnea Gastrointestinal Gastrointestinal: Denies abdominal pain, nausea or vomiting Genitourinary Genitourinary ED: Denies dysuria, hematuria or urinary urgency Musculoskeletal Musculoskeletal: Reports arthralgias and back pain; Denies myalgias Integumentary Denies Abrasions Neurologic Neurologic: Denies paresthesias or weakness EXAM <TISHA Albarado - Last Filed: 06/30/23 17:53> Physical Exam Const Vital Signs: 06/30/23 13:45 06/30/23 13:45 06/30/23 14:23 Temperature 98.2 F Temperature Source Temporal Pulse Rate 57 L Respiratory Rate 18 Respiratory Effort Normal Non-Labored Respiratory Depth Normal Respiratory Pattern Normal Blood Pressure 125/55 H Blood Pressure Mean 78 Pulse Ox 93 84 Oxygen Delivery Method Nasal Cannula Room Air Oxygen Flow Rate (L/min) 3 06/30/23 15:44 06/30/23 17:00 06/30/23 18:49 Temperature 98.1 F Temperature Source Pulse Rate 74 62 64 Respiratory Rate 18 16 13 Respiratory Effort Respiratory Depth Respiratory Pattern Blood Pressure 120/99 H 126/61 H 136/115 H Blood Pressure Mean 106 82 122 Pulse Ox 95 96 98 Oxygen Delivery Method Room Air Nasal Cannula Oxygen Flow Rate (L/min) 3 Positive well nourished, well developed and no apparent distress General Appearance ED: well developed HEENT Reports normocephalic and head/scalp atraumatic Mouth ED: Yes moist mucous membranes normal Eyes PERRL and EOMs intact bilaterally Neck full ROM and supple Chest Wall inspection of chest normal Resp normal respiratory effort and clear to auscultation bilaterally Cardio regular rate and regular rhythm GI soft to palpation, non-tender, non-distended and no masses Back/Spine normal ROM and normal to inspection Extremity normal to inspection and full ROM Extremity Narrative: Shortening and internally rotated left lower extremity, pain to palpation to the left hip with positive logroll. Left DP pulse 2+, good capillary refill, sensation intact. Neuro oriented x3, CN's II-XII intact bilaterally, moves all extremities, no focal motor deficits and no sensory deficits noted Sensorium / Orientation: awake and alert Psych mental status grossly normal and thought process normal Skin no rashes or lesions noted and no wounds <Dr. Tutu Acuna DO - Last Filed: 06/30/23 19:12> Physical Exam Const Vital Signs: 06/30/23 13:45 06/30/23 13:45 06/30/23 14:23 Temperature 98.2 F Temperature Source Temporal Pulse Rate 57 L Respiratory Rate 18 Respiratory Effort Normal Non-Labored Respiratory Depth Normal Respiratory Pattern Normal Blood Pressure 125/55 H Blood Pressure Mean 78 Pulse Ox 93 84 Oxygen Delivery Method Nasal Cannula Room Air Oxygen Flow Rate (L/min) 3 06/30/23 15:44 06/30/23 17:00 06/30/23 18:49 Temperature 98.1 F Temperature Source Pulse Rate 74 62 64 Respiratory Rate 18 16 13 Respiratory Effort Respiratory Depth Respiratory Pattern Blood Pressure 120/99 H 126/61 H 136/115 H Blood Pressure Mean 106 82 122 Pulse Ox 95 96 98 Oxygen Delivery Method Room Air Nasal Cannula Oxygen Flow Rate (L/min) 3 [facility] <TISHA Albarado - Last Filed: 06/30/23 17:53> [facility] Narrative Medical decision making narrative: Patient presenting today with left hip pain after a mechanical fall that occurred this afternoon. She has had chronic low back pain which she is following with Dr. Gonzales for. She had a recent MRI performed. She has been getting muscle spasms in her back which is what caused her to fall today. She was hypoxic when EMS arrived, we did take her off supplemental O2 and she did desaturate to 88% with good waveform, she was then placed back on 3 L supplemental O2 and is now around 96%. She does have pain to the left hip with visible deformity, x-ray obtained but she does have a transverse fracture at the base of the left femoral neck. I will speak with orthopedics, they recommend admission to medicine team but are planning for surgery on Tuesday. Chest x- ray negative for any acute findings, basic labs obtained, she does have a WBC of 16, BMP shows a BUN of 19, creatinine 1.14, kidney function around baseline. She was given IV fluids and analgesia. UA is pending, we will place a Kay catheter. I spoke to Dr. Norton and patient is admitted in stable condition. Lab Data Attestation: I reviewed the patient's lab results. Lab results narrative: WBC 16, BUN 19, creatinine 1.14 Labs: Laboratory Results - last 24 hr 06/30/23 06/30/23 15:05 17:35 WBC 16.0 H RBC 4.41 Hgb 12.3 Hct 39.7 MCV 90.0 MCH 27.9 MCHC 31.0 L RDW Std Deviation 48.1 H RDW Coeff of [place] 14.6 Plt Count 359 MPV 9.4 Immature Gran % (Auto) 0.800 Neut % (Auto) 82.3 H Lymph % (Auto) 5.6 L [place] % (Auto) 8.6 Eos % (Auto) 2.1 Baso % (Auto) 0.6 Absolute Neuts (auto) 13.2 H Absolute Lymphs (auto) 0.89 Nucleated RBC % 0 Sodium 139 Potassium 3.9 Chloride 107 Carbon Dioxide 26.0 Anion Gap 6 BUN 19 H Creatinine 1.14 H Estim Creat Clear Calc 34.07 Est GFR (MDRD) Af Amer 59 L Est GFR (MDRD) Non-Af 48 L BUN/Creatinine Ratio 16.7 Glucose 109 H Calcium 8.5 Urine Color Yellow Urine Clarity Clear Urine pH 7.0 Ur Specific [place] 1.010 Urine Protein Negative Urine Glucose (UA) Normal Urine Ketones Negative Urine Occult Blood Negative Urine Nitrite Negative Urine Bilirubin Negative Urine Urobilinogen Normal Ur Leukocyte Esterase Negative Urine RBC 0 SEEN Urine WBC 0 SEEN Ur Squamous Epith Cells 0 SEEN Urine Bacteria 0 SEEN Urine Mucus 0 SEEN Radiography X-Ray: Read by ED Physician Diagnostic Testing: Clinical Impression(s) from Imaging Studies Chest X-Ray 06/30/23 14:33 IMPRESSION: Hyperinflation. No acute abnormality is seen. Scattered calcified granulomas. Electronically Signed: Mele Houston MD at 14:54 EDT , Hip/Pelvis X-Ray 06/30/23 14:33 IMPRESSION: Transverse fracture at the base of the left femoral neck with cephalic migration of the distal fracture fragment. Electronically Signed: Mele Houston MD at 14:55 EDT , <Dr. Tutu Acuna, DO - Last Filed: 06/30/23 19:12> [facility] Narrative Medical decision making narrative: Patient presenting today with left hip pain after a mechanical fall that occurred this afternoon. She has had chronic low back pain which she is following with Dr. Gonzales for. She had a recent MRI performed. She has been getting muscle spasms in her back which is what caused her to fall today. She was hypoxic when EMS arrived, we did take her off supplemental O2 and she did desaturate to 88% with good waveform, she was then placed back on 3 L supplemental O2 and is now around 96%. She does have pain to the left hip with visible deformity, x-ray obtained but she does have a transverse fracture at the base of the left femoral neck. I will speak with orthopedics, they recommend admission to medicine team but are planning for surgery on Tuesday. Chest x- ray negative for any acute findings, basic labs obtained, she does have a WBC of 16, BMP shows a BUN of 19, creatinine 1.14, kidney function around baseline. She was given IV fluids and analgesia. UA is pending, we will place a Kay catheter. I spoke to Dr. Norton and patient is admitted in stable condition. This patient was seen with a PA/NETTING INSPECTOR Individually assessed they patient including history and physical. I have reviewed everything on the chart that is available and agree with the documentation provided by the PA/NETTING INSPECTOR including discussion about the assessment, treatment plan, discussion, and return precautions. Patient seen after fall. She has pain to the left hip. She is also been having back spasms which she uses the reason for the fall. No head injury or LOC. Pa tient medicated with morphine and Zofran. IV was established. CBC was obtained to assess white blood cell count, hemoglobin and platelets. BMP to assess renal function electrolytes. Patient x-ray of the left hip and a chest x-ray. Chest x-ray my interpretation does not show any acute process. The left hip x-ray reviewed on my interpretation show a fracture of the left femoral neck with displacement. Patient needed premedicating and was given another dose of morphine. Patient also had some hypoxia noted it is unclear why. Her chest x- ray was normal. She does have leukocytosis however this was to be reactive because there is nothing on her chest x-ray or in her urine. Patient admitted in stable condition. Impression: 1. Mechanical fall 2. Left hip fracture 3. Hypoxia 4. Acute on chronic back pain Lab Data Labs: Laboratory Results - last 24 hr 06/30/23 06/30/23 15:05 17:35 WBC 16.0 H RBC 4.41 Hgb 12.3 Hct 39.7 MCV 90.0 MCH 27.9 MCHC 31.0 L RDW Std Deviation 48.1 H RDW Coeff of [place] 14.6 Plt Count 359 MPV 9.4 Immature Gran % (Auto) 0.800 Neut % (Auto) 82.3 H Lymph % (Auto) 5.6 L [place] % (Auto) 8.6 Eos % (Auto) 2.1 Baso % (Auto) 0.6 Absolute Neuts (auto) 13.2 H Absolute Lymphs (auto) 0.89 Nucleated RBC % 0 Sodium 139 Potassium 3.9 Chloride 107 Carbon Dioxide 26.0 Anion Gap 6 BUN 19 H Creatinine 1.14 H Estim Creat Clear Calc 34.07 Est GFR (MDRD) Af Amer 59 L Est GFR (MDRD) Non-Af 48 L BUN/Creatinine Ratio 16.7 Glucose 109 H Calcium 8.5 Urine Color Yellow Urine Clarity Clear Urine pH 7.0 Ur Specific [place] 1.010 Urine Protein Negative Urine Glucose (UA) Normal Urine Ketones Negative Urine Occult Blood Negative Urine Nitrite Negative Urine Bilirubin Negative Urine Urobilinogen Normal Ur Leukocyte Esterase Negative Urine RBC 0 SEEN Urine WBC 0 SEEN Ur Squamous Epith Cells 0 SEEN Urine Bacteria 0 SEEN Urine Mucus 0 SEEN Radiography Diagnostic Testing: Clinical Impression(s) from Imaging Studies Chest X-Ray 06/30/23 14:33 IMPRESSION: Hyperinflation. No acute abnormality is seen. Scattered calcified granulomas. Electronically Signed: Mele Houston MD at 14:54 EDT , Hip/Pelvis X-Ray 06/30/23 14:33 IMPRESSION: Transverse fracture at the base of the left femoral neck with cephalic migration of the distal fracture fragment. Electronically Signed: Mele Houston MD at 14:55 EDT , Discharge Plan Dx/Rx/DC Orders Clinical Impression: Anticoagulant long-term use, CKD (chronic kidney disease), Hypoxia, Chronic back pain, Fall, Closed fracture of left hip Disposition Disposition: Acute Care Hospital [facility]
--- NOTE | 2023-06-30 14:33 | RAD_ITS ---
STUDY: X-RAY - PELVIS AND LEFT HIP REASON FOR EXAM: Female, 82 years old. Fall TECHNIQUE: 3 views of the pelvis and hip. COMPARISON: None. FINDINGS: Moderate amount of fecal material is seen in the colon. There are atherosclerotic vascular calcifications of the pelvic arteries. There is narrowing with cortical sclerosis and osteophyte formation of the sacroiliac joint consistent with degenerative osteoarthritic changes. Normal bilateral superior and inferior pubic rami. There are degenerative changes of the pubic symphysis with articular narrowing and sclerosis. Normal bilateral ischial tuberosities. Transverse fracture at the base of the left femoral neck with cephalic migration of the distal fracture fragment. RAD/HIP, UNI W/ Pelvis 2-3 Views IMPRESSION: Transverse fracture at the base of the left femoral neck with cephalic migration of the distal fracture fragment. Electronically Signed: Mele Houston MD at 14:55 EDT ,
--- NOTE | 2023-06-30 14:33 | RAD_ITS ---
STUDY: X-RAY CHEST REASON FOR EXAM: Female, 82 years old. FALL TECHNIQUE: Single AP portable view of the chest. COMPARISON: Comparison is made with prior study July 13, 2022. FINDINGS: Hyperinflation. Scattered calcified granulomas. There is no demonstrated pleural abnormality. There is mild cardiac enlargement. Normal mediastinum and dylan. Normal visualized pulmonary arteries. There is atherosclerotic calcification of the aortic arch with tortuosity. Normal visualized thoracic spine. Normal visualized ribs, clavicles, and shoulders. There is no demonstrated abnormality of the visualized soft tissue structures of the upper abdomen. RAD/Chest 1 View IMPRESSION: Hyperinflation. No acute abnormality is seen. Scattered calcified granulomas. Electronically Signed: Mele Houston MD at 14:54 EDT ,
[2023-06-30 15:21] LABS: Absolute Lymphocyte Count 0.89 X10^3/uL (0.83-4.51); Absolute Neutrophil Count 13.2 X10^3/uL (2.0-7.7); Basophil% 0.6 % (0-1); Eosinophil# 0.33 X10^3/uL; Eosinophils% 2.1 % (0-5); Hematocrit 39.7 % (37-47); Hemoglobin 12.3 g/dL (12.0-15.0); Lymphocyte # 0.89 X10^3/ul (0.83-4.51); Lymphocyte % 5.6 % (19-41); Mean Corpuscular Hgb 27.9 pg (27.0-32.0); Mean Platelet Vol. 9.4 fl (6.2-12.0); Monocyte# 1.37 X10^3/uL; Monocyte% 8.6 % (0-10); NRBC Flagged by Analyzer 0 % (0-5); Neutrophil # 13.18 X10^3/uL (2.7-7.7); Neutrophil % 82.3 % (47-70); Platelet Count 359 K/mm3 (150-450); RBC Distribution Width CV 14.6 % (11.6-14.6); RBC Distribution Width SD 48.1 fl (35.1-43.9); Red Blood Count 4.41 M/mm3 (4.2-5.4)
[2023-06-30 15:36] LABS: Anion Gap 6 (5-15); BUN 19 mg/dL (7-18); BUN/Creat Ratio 16.7 RATIO (10-20); Calcium,Total 8.5 mg/dL (8.5-10.1); Chloride 107 mmol/L (98-107); Creatinine, Serum 1.14 mg/dL (0.55-1.02); EST Glomerular Filtration Rate 48 mL/min (>60); Est Glom Filt Rate - Afr Amer 59 mL/min (>60); Estimated Creatinine Clearance 34.07 ml/min; Glucose 109 mg/dL (74-106); Potassium 3.9 mmol/L (3.5-5.1); Sodium Level 139 mmol/L (136-145)
--- NOTE | 2023-06-30 16:48 | PCM.HP.STD ---
HPI - General General Date of Admission: 06/30/23 Date of Service: 06/30/23 Chief Complaint: Left hip pain HPI Narrative EVENS ORDOÑEZ, is a 82 F who presented to [facility] ED on 06/30/2023 with left hip pain after a fall at home. X-ray in ED showed a transverse fracture at the base of the left femoral neck. Patient seen at bedside in the ED, daughter present. Patient was laying back in bed, appeared anxious but generally answering questions appropriately, was comfortable at rest but had moderate to severe discomfort with any movement. Patient has history of chronic low back pain with significant worsening over the past few weeks. She has been following with Dr. Gonzales for this. She apparently had an MRI of the low back done 2 days ago but I was unable to view the results of this. Unable to see Dr. Gonzales notes either. Patient lives at home alone, daughter lives in area. Patient states she had significant back spasms earlier today when try to get up from her chair and this caused her to fall onto her left hip. Patient is concerned about the MRI results and is focused on the low back pain being the cause of her issues. She and daughter state the IV pain medication given in the ED seem to be moderately helpful for, though it seems to be wearing off now. She has been on tramadol at home for low back pain with essentially no relief. \ Vitals in ED unremarkable. Labs notable for WBC count 16, hemoglobin 12.3 (at baseline), platelets 359, creatinine 1.14 (at baseline), BMP otherwise benign. Chest x-ray showed hyperinflation, no acute abnormalities. Patient will be admitted for further management. [facility] Medical History Abnormal ECG Abnormal serum enzyme level Abnormal stress test Angina pectoris Atherosclerotic heart disease of [place] coronary artery without angina pectoris Bladder prolapse Bleeding tendency Chest pain Essential hypertension GERD (gastroesophageal reflux disease) High cholesterol History of coronary artery stent placement (~09/25/13) History of stress test Hypertension Hypothyroidism Ischemic cardiomyopathy [employer] use of drug Non-rheumatic mitral regurgitation Nonrheumatic mitral valve disorder NSTEMI (non-ST elevation myocardial infarction) Old myocardial infarction Osteoporosis Post-menopausal Pure hypercholesterolemia Tachycardia Home Medications Handicap placard #1 ea 11/19/20 [Rx Last Taken Unknown] sertraline 50 mg tablet 50 mg PO DAILY ANXIETY 05/06/21 [History Last Taken 06/30/23] hydroxyzine HCl 50 mg tablet 50 mg PO QHS PRN Sleep 02/09/22 [History Last Taken 02/08/22] nitroglycerin 0.4 mg sublingual tablet 0.4 mg sublingual Q5M PRN Chest Pain #25 tabs 02/25/22 [Rx Last Taken 04/20/22 04:30] apixaban 2.5 mg tablet (Eliquis) 2.5 mg PO Q12H 04/26/22 [History Last Taken 06/30/23] melatonin 10 mg tablet 10 mg PO QHS SLEEP 04/26/22 [History Last Taken 06/29/23] omeprazole 20 mg capsule,delayed release 20 mg PO DAILY GERD 04/26/22 [History Last Taken 06/30/23] amiodarone 200 mg tablet 200 mg PO DAILY dose reduced at [facility]. 05/04/22 [History Last Taken 06/30/23] acetaminophen 325 mg tablet (Tylenol) 650 mg PO Q6H PRN Pain 06/13/22 [History Last Taken Unknown] clopidogrel 75 mg tablet 75 mg PO DAILY 06/13/22 [History Last Taken 06/30/23] losartan 50 mg tablet 50 mg PO BID 06/13/22 [History Last Taken 06/30/23] pravastatin 80 mg tablet 80 mg PO DAILY 06/13/22 [History Last Taken 06/30/23] ondansetron 4 mg disintegrating tablet 4 mg PO Q8H PRN PRN Nausea #14 tabs 02/09/23 [Rx Last Taken Unknown] tramadol 50 mg tablet 50 mg PO TID PRN pain 06/22/23 [History Last Taken Unknown] amlodipine 5 mg tablet 5 mg PO DAILY 06/30/23 [History Last Taken 06/30/23] carvedilol 6.25 mg tablet 3.125 mg PO BID 06/30/23 [History Last Taken 06/30/23] ezetimibe 10 mg tablet 10 mg PO DAILY 06/30/23 [History Last Taken Unknown] levothyroxine 112 mcg tablet 112 mcg PO DAILY 06/30/23 [History Last Taken 06/30/23] Allergy/AdvReac Type Severity Reaction Status Date / Time lisinopril AdvReac Intermediate Cough Verified 06/30/23 13:50 Family History Mother Breast cancer Myocardial infarction CAD (coronary artery disease) Diabetes Father Myocardial infarction CAD (coronary artery disease) Brother Myocardial infarction Diabetes CAD (coronary artery disease) Sister Breast cancer Hypertension Surgical History H/O cardiac catheterization History of heart artery stent Presence of coronary angioplasty implant and graft (~09/25/13) Social History household members: none Smoking Status: Never smoker alcohol intake: never substance use type: does not use caffeine: No what type of physical activity do you participate in: walking frequency: 3-4 times per week duration: 45-60 minutes/day seatbelt use: always do you feel safe at home: Yes ROS Constitutional Constitutional: Denies chills, fatigue or fever(s) Cardiovascular Cardiovascular: Denies chest pain Respiratory/Chest Respiratory/Chest: Denies shortness of breath at rest Gastrointestinal Gastrointestinal: Denies abdominal pain Musculoskeletal Musculoskeletal: Reports arthralgias, back pain and joint pain Neurologic Neurologic: Reports paresthesias RLE and LLE; Denies dizziness, focal weakness, headache(s), numbness, syncope or tingling Psychiatric Psychiatric: Reports anxiety Vital Signs Vital Signs Vital Signs: 06/30/23 13:45 06/30/23 13:45 06/30/23 14:23 Temperature 98.2 F Temperature Source Temporal Pulse Rate 57 L Respiratory Rate 18 Respiratory Effort Normal Non-Labored Respiratory Depth Normal Respiratory Pattern Normal Blood Pressure 125/55 H Blood Pressure Mean 78 Pulse Ox 93 84 Oxygen Delivery Method Nasal Cannula Room Air Oxygen Flow Rate (L/min) 3 06/30/23 15:44 Temperature Temperature Source Pulse Rate 74 Respiratory Rate 18 Respiratory Effort Respiratory Depth Respiratory Pattern Blood Pressure 120/99 H Blood Pressure Mean 106 Pulse Ox 95 Oxygen Delivery Method Room Air Oxygen Flow Rate (L/min) Weight Weight: 63.2 kg Body Mass Index (BMI) 24.7 Physical Exam Const alert, oriented x3 and average body habitus Constitutional Narrative: Elderly female, laying in bed, mild to moderate distress with any movement due to left hip pain, otherwise mildly anxious appearing but answering questions appropriately. General Appearance: cooperative HEENT normocephalic, head/scalp atraumatic, hearing grossly normal bilaterally and nasal mucous membranes and turbinates normal Eyes PERRL, EOMs intact bilaterally and conjunctivae normal Neck full ROM Chest inspection of chest normal Resp normal respiratory effort, normal air movement, no use of accessory muscles and clear to auscultation bilaterally Cardio regular rate, regular rhythm, no murmurs and peripheral pulses 2+ throughout GI normal to inspection, nondistended, normoactive bowel sounds, soft to palpation, non-tender and non-distended Back/Spine Back/Spine Narrative: Mild tenderness to palpation in lumbar spine primarily in bilateral low paramuscular areas. Extremity Extremity Narrative: Left lower extremity shortened and externally rotated, mild pain with palpation, no movement attempted. Skin no rashes or lesions noted Neuro no focal motor deficits Speech: speech normal Psych mental status grossly normal Mood & Affect: anxious Results Lab / Micro Data 07/03/23 04:05 07/03/23 04:05 Labs: Laboratory Results - last 24 hr 06/30/23 15:05: WBC 16.0 H, RBC 4.41, Hgb 12.3, Hct 39.7, MCV 90.0, MCH 27.9, MCHC 31.0 L, RDW Std Deviation 48.1 H, RDW Coeff of [place] 14.6, Plt Count 359, MPV 9.4, Immature Gran % (Auto) 0.800, Neut % (Auto) 82.3 H, Lymph % (Auto) 5.6 L, [place] % (Auto) 8.6, Eos % (Auto) 2.1, Baso % (Auto) 0.6, Absolute Neuts (auto) 13.2 H, Absolute Lymphs (auto) 0.89, Nucleated RBC % 0, Sodium 139, Potassium 3.9, Chloride 107, Carbon Dioxide 26.0, Anion Gap 6, BUN 19 H, Creatinine 1.14 H, Estim Creat Clear Calc 34.07, Est GFR (MDRD) Af Amer 59 L, Est GFR (MDRD) Non-Af 48 L, BUN/Creatinine Ratio 16.7, Glucose 109 H, Calcium 8.5 Imaging Radiology Impression Chest X-Ray 06/30/23 14:33 IMPRESSION: Hyperinflation. No acute abnormality is seen. Scattered calcified granulomas. Electronically Signed: Mele Houston MD at 14:54 EDT , Hip/Pelvis X-Ray 06/30/23 14:33 IMPRESSION: Transverse fracture at the base of the left femoral neck with cephalic migration of the distal fracture fragment. Electronically Signed: Mele Houston MD at 14:55 EDT , Assessment & Plan Assessment/Plan (1) Closed fracture of left hip: PLAN: Plan Patient is an 82-year-old female who presented to [facility] ED on 06/30/2023 with left hip pain after a fall at home. 1. Left hip fracture ? [facility]. Orthopedics consulted. Preoperative evaluation as noted below. Notably is on Eliquis and Plavix, last doses of both on morning of 06/29, both now being held. Pain control with scheduled Tylenol, oxycodone as needed and IV Dilaudid as needed. PT/OT/case management consulted. 2. Preoperative evaluation ? Cardiology consulted for assistance with preop evaluation. Complex cardiac history. Last echo in 03/2022 with EF 25%, severe global LV systolic dysfunction, global longitudinal strain abnormal, mild concentric LV hypertrophy. This was done when patient had NSTEMI at that time, required transfer to [facility] for further management. Currently on Eliquis for atrial flutter and Plavix for CAD with history of stenting, both being held. 3. Paroxysmal atrial flutter on Eliquis ? Continue home amiodarone and Coreg, holding home Eliquis. 4. History of CAD with stenting ? Holding home Plavix, continue home statin. Appreciate cardiology recommendations as noted above. 5. History of CKD stage IIIb ? Creatinine 1.14 on admit, at baseline. Chronic medical conditions: ? Hypothyroidism: Continue Synthroid. ? Hypertension: Continue home amlodipine and Coreg, holding home losartan. ? Hyperlipidemia: Continue home statin and Zetia. ? Mood disorder: Stable. Continue home sertraline and melatonin. ? GERD: Continue home PPI. DVT prophylaxis: SCDs CODE STATUS: Full code, verified Expected disposition: Home with home health care versus SNF, TBD Total clinical time spent by myself addressing the patient's medical issues, reviewing all the data, and collaborating with patient's care team: 55 minutes. Charges/Coding Visit Charges Inpatient E&M: 54744 Init Hosp L2
[2023-06-30 17:42] LABS: Bacteria 0 SEEN /hpf (None Seen); Mucous, Urine 0 SEEN /hpf (<or=2+); Red Blood Cells-Urine 0 SEEN /hpf (0-5); Squamous Epithelial Cells - UA 0 SEEN /hpf (5-10); White Blood Cells 0 SEEN /hpf (0-5)
[2023-06-30] MEDS: 0.9% Normal Saline (1000mL) 1,000 ML 999 ML IV (18:06)
[2023-06-30 18:37] LABS: Color, Urine Yellow (Yellow); Glucose, Dipstick Normal (Normal); Ketone-Dipstick Negative (Negative); Leukocyte Esterase-Dipstick Negative /ul (Negative); Nitrite-Dipstick Negative (Negative); Occult Blood-Urine Negative /ul (Negative); Protein-Dipstick Negative (Negative); Urine Bilirubin Dipstick Negative (Negative); Urine Clarity Clear (Clear); Urine Urobilinogen Normal (Normal)
[2023-06-30] MEDS: HYDROmorphone 0.5 MG/0.5 ML SYRINGE IV ×2 (18:44→21:39)
[2023-06-30 22:13] LABS: International Normalized Ratio 1.2; Prothrombin Time (Protime)PT. 15.5 SECONDS (11.7-14.9)
[2023-06-30] MEDS: oxyCODONE 5 MG Tablet PO (22:29)
[2023-06-30] MEDS: Acetaminophen 500 MG Tablet 1000 MG PO (22:30)
[2023-06-30] MEDS: Calcium Carbonate 500 MG Tablet PO (22:38)
[2023-06-30] MEDS: Neomycin/Polymyxin/Dexameth 5ML OPTH.BTL 1 DRP OPHTHALMIC (22:38)
[2023-06-30] MEDS: Carvedilol 6.25 MG Tablet PO (22:38)
[2023-06-30] MEDS: MELATONIN 10 MG TABLET PO (22:38)
[2023-07-01] MEDS: HYDROmorphone 0.5 MG/0.5 ML SYRINGE IV ×5 (00:09→20:08)
[2023-07-01] MEDS: oxyCODONE 5 MG Tablet PO ×4 (02:39→21:35)
[2023-07-01 06:09] VITALS: BP 103/57; PULSE 58; RESP 18; TEMP 36.8; O2SAT 97
[2023-07-01] MEDS: Levothyroxine 112 MCG Tablet PO (06:18)
[2023-07-01] MEDS: Neomycin/Polymyxin/Dexameth 5ML OPTH.BTL 1 DRP OPHTHALMIC ×2 (06:18→14:26)
[2023-07-01] MEDS: Acetaminophen 500 MG Tablet 1000 MG PO ×3 (06:18→21:36)
[2023-07-01 07:15] LABS: Hematocrit 35.6 % (37-47); Hemoglobin 10.9 g/dL (12.0-15.0); Mean Corp Hgb Conc 30.6 g/dL (32-36); Mean Corpuscular Hgb 28.2 pg (27.0-32.0); Mean Corpuscular Volume 92.2 fL (81-99); Mean Platelet Vol. 9.8 fl (6.2-12.0); Platelet Count 318 K/mm3 (150-450); RBC Distribution Width CV 14.8 % (11.6-14.6); RBC Distribution Width SD 50.4 fl (35.1-43.9); Red Blood Count 3.86 M/mm3 (4.2-5.4); White Blood Count 11.9 K/mm3 (4.4-11.0)
[2023-07-01 07:40] LABS: Anion Gap 5 (5-15); BUN 24 mg/dL (7-18); BUN/Creat Ratio 15.4 RATIO (10-20); Calcium,Total 8.1 mg/dL (8.5-10.1); Chloride 109 mmol/L (98-107); Creatinine, Serum 1.56 mg/dL (0.55-1.02); EST Glomerular Filtration Rate 34 mL/min (>60); Est Glom Filt Rate - Afr Amer 41 mL/min (>60); Glucose 105 mg/dL (74-106); Sodium Level 138 mmol/L (136-145)
[2023-07-01 07:52] LABS: Thyroid Stim Hormone (TSH) 1.18 uIU/mL (0.358-3.74)
[2023-07-01 07:58] VITALS: O2SAT 95
[2023-07-01 08:39] VITALS: BP 127/55; PULSE 59; RESP 18; TEMP 37.2; O2SAT 93
[2023-07-01] MEDS: 0.9% Saline Lock 10 ML Syringe IV (08:41)
[2023-07-01] MEDS: amLODIPine 5 MG Tablet PO (09:01)
[2023-07-01] MEDS: Carvedilol 6.25 MG Tablet PO ×2 (09:01→21:36)
[2023-07-01] MEDS: Calcium Carbonate 500 MG Tablet PO ×2 (09:01→21:36)
[2023-07-01] MEDS: Pantoprazole Sodium 20 MG Tablet PO (09:01)
[2023-07-01] MEDS: Amiodarone 200 MG Tablet PO (09:01)
[2023-07-01] MEDS: Sertraline 50 MG Tablet PO (09:02)
[2023-07-01] MEDS: Ezetimibe 10 MG Tablet PO (09:02)
[2023-07-01] MEDS: Pravastatin 80 MG Tablet PO (09:02)
--- NOTE | 2023-07-01 10:06 | CON.PCM.CA_ITS ---
Assessment & Plan Assessment/Plan (1) Preoperative cardiovascular examination: PLAN: This patient has history of coronary artery disease. Severe diffuse mid to distal LAD disease. Also severe disease of a diminutive left circumflex. Presently stable. No angina pectoris. LV systolic dysfunction with no heart failure. She is being contemplated for surgery for fracture of her femur. She is in considerable pain with her femoral fracture. In my opinion, the patient is moderate risk for the proposed procedure. Discussed with patient. Willing to accept the risk and wishes to proceed with surgery. Continue beta-blockers. Amlodipine. Her apixaban and clopidogrel have been held in anticipation of surgery. Agree with starting aspirin. Resume apixaban when okay with surgery. Please avoid major hemodynamic swings during and after anesthesia. (2) Paroxysmal atrial flutter: PLAN: Check ECG. On amiodarone for maintaining sinus rhythm. (3) Coronary artery disease: PLAN: See #1 above. Continue aspirin. Beta-blockers. Amlodipine. (4) Left ventricular systolic dysfunction (LVSD) without heart failure: PLAN: Continue beta-blockers. Start losartan at low-dose. Monitor creatinine. (5) CKD (chronic kidney disease): HPI Consult Data Date of Consult: 07/26/23 HPI Narrative Reason for Consultation: Preoperative cardiovascular risk evaluation HPI Narrative: This patient has past medical history significant for coronary artery disease status post percutaneous intervention to the LAD and right coronary artery. Also history of mild LV systolic dysfunction. Her left ventricular systolic ejection fraction was reported on echocardiogram in 2021 as 45%. Her last coronary angiography was in March of last year. She was noted to have severe disease of a diminutive left circumflex. Stents to the proximal LAD were patent. Mid to distal LAD was noted to be diffusely diseased. Small mid to distal LAD approximately 1.5 mm with about 80% lesion in the mid part. Patient has been admitted for fracture of her femur. Open reduction is being contemplated. We are asked to evaluate her cardiac risk for the proposed procedure. Patient denies any recent history of chest pains either at rest or with exertion. Denies orthopnea. No PND. Denies any ankle edema. No palpitations. [facility] Medical History Tricuspid valve regurgitation Grade II diastolic dysfunction Left ventricular systolic dysfunction (LVSD) without heart failure Coronary artery disease Preoperative cardiovascular examination Closed fracture of left hip Fall Chronic back pain CKD (chronic kidney disease) Anticoagulant long-term use CAD (coronary artery disease) Paroxysmal atrial flutter Bleeding tendency Post-menopausal High cholesterol History of stress test Osteoporosis GERD (gastroesophageal reflux disease) Hypertension Non-rheumatic mitral regurgitation Tachycardia Bladder prolapse Nonrheumatic mitral valve disorder Abnormal stress test Pure hypercholesterolemia Essential hypertension Atherosclerotic heart disease of [place] coronary artery without angina pectoris History of coronary artery stent placement (~09/25/13) Old myocardial infarction [facility] use of drug Ischemic cardiomyopathy Abnormal ECG Abnormal serum enzyme level NSTEMI (non-ST elevation myocardial infarction) Angina pectoris Chest pain Hypothyroidism Home Medications ?Medication ?Instructions ?Recorded ?Last Taken ?Type Handicap placard #1 ea 11/19/20 Unknown Rx sertraline 50 mg tablet 50 mg PO DAILY ANXIETY 05/06/21 07/20/23 History hydroxyzine HCl 50 mg tablet 50 mg PO QHS PRN Sleep 02/09/22 02/08/22 History nitroglycerin 0.4 mg sublingual 0.4 mg sublingual Q5M PRN Chest 02/25/22 04/20/22 04:30 Rx tablet Pain #25 tabs apixaban 2.5 mg tablet (Eliquis) 2.5 mg PO Q12H blood thinner 04/26/22 06/30/23 History melatonin 10 mg tablet 10 mg PO QHS SLEEP 04/26/22 06/29/23 History omeprazole 20 mg capsule,delayed 20 mg PO DAILY GERD 04/26/22 07/20/23 History release amiodarone 200 mg tablet 200 mg PO DAILY dose reduced at 05/04/22 07/21/23 History [facility]. acetaminophen 325 mg tablet 650 mg PO Q6H PRN Pain 06/13/22 07/21/23 History (Tylenol) clopidogrel 75 mg tablet 75 mg PO DAILY prevent clots 06/13/22 06/30/23 History losartan 50 mg tablet 50 mg PO BID BP 06/13/22 07/20/23 History pravastatin 80 mg tablet 80 mg PO DAILY cholesterol 06/13/22 07/20/23 History ondansetron 4 mg disintegrating 4 mg PO Q8H PRN PRN Nausea #14 tabs 02/09/23 Unknown Rx tablet tramadol 50 mg tablet 50 mg PO TID PRN pain 06/22/23 Unknown History amlodipine 5 mg tablet 5 mg PO DAILY BP 06/30/23 07/20/23 History carvedilol 6.25 mg tablet 3.125 mg PO BID BP/heart rate 06/30/23 07/20/23 History ezetimibe 10 mg tablet 10 mg PO DAILY cholesterol 06/30/23 07/20/23 History levothyroxine 112 mcg tablet 112 mcg PO DAILY thyroid 06/30/23 07/21/23 History Allergy/AdvReac Type Severity Reaction Status Date / Time lisinopril AdvReac Intermediate Cough Verified 07/21/23 11:05 Family History Mother Breast cancer Myocardial infarction CAD (coronary artery disease) Diabetes Father Myocardial infarction CAD (coronary artery disease) Brother Myocardial infarction Diabetes CAD (coronary artery disease) Sister Breast cancer Hypertension Surgical History History of left hip hemiarthroplasty History of heart artery stent H/O cardiac catheterization Presence of coronary angioplasty implant and graft (~09/25/13) Social History household members: none Smoking Status: Never smoker alcohol intake: never substance use type: does not use caffeine: No what type of physical activity do you participate in: walking frequency: 3-4 times per week duration: 45-60 minutes/day seatbelt use: always do you feel safe at home: Yes Physical Exam Narrative Appears mildly distressed on account of hip pain. No JVD. Heart sounds 1 and 2 are noted. 2/6 systolic murmur at base. Chest clear to auscultation bilaterally. Alert oriented x 3. No ankle edema. Risk Stratification Risk Stratification Applicable: No Objective Data Vital Signs: Vital Signs Temp Pulse Resp BP Pulse Ox O2 Del Method O2 Flow Rate 98.9 F 59 L 18 127/55 H 93 Nasal Cannula 3 07/01/23 08:39 07/01/23 08:39 07/01/23 08:39 07/01/23 08:39 07/01/23 08:39 07/01/23 09:09 07/01/23 09:09 Oxygen Flow Rate (L/min) 3 Oxygen Delivery Method Nasal Cannula Weight: 132 lb 15.02 oz Body Mass Index (BMI) 23.5 Intake & Output: Intake and Output for Last 24 Hours 06/29/23 06/30/23 07/01/23 23:59 23:59 23:59 Intake Total 1000 / 1000 300 / 300 Output Total 1000 / 1000 300 / 300 Balance 0 / 0 0 / 0 Lab / Micro Data 07/06/23 05:00 07/06/23 05:00 Labs: Laboratory Results - last 24 hr 06/30/23 15:05: WBC 16.0 H, RBC 4.41, Hgb 12.3, Hct 39.7, MCV 90.0, MCH 27.9, M CHC 31.0 L, RDW Std Deviation 48.1 H, RDW Coeff of [place] 14.6, Plt Count 359, MPV 9.4, Immature Gran % (Auto) 0.800, Neut % (Auto) 82.3 H, Lymph % (Auto) 5.6 L, [place] % (Auto) 8.6, Eos % (Auto) 2.1, Baso % (Auto) 0.6, Absolute Neuts (auto) 13.2 H, Absolute Lymphs (auto) 0.89, Nucleated RBC % 0, PT 15.5 H, INR 1.2, Sodium 139, Potassium 3.9, Chloride 107, Carbon Dioxide 26.0, Anion Gap 6, BUN 19 H, Creatinine 1.14 H, Estim Creat Clear Calc 34.07, Est GFR (MDRD) Af Amer 59 L, Est GFR (MDRD) Non-Af 48 L, BUN/Creatinine Ratio 16.7, Glucose 109 H, Calcium 8.5 06/30/23 17:35: Urine Color Yellow, Urine Clarity Clear, Urine pH 7.0, Ur Specific [place] 1.010, Urine Protein Negative, Urine Glucose (UA) Normal, Urine Ketones Negative, Urine Occult Blood Negative, Urine Nitrite Negative, Urine Bilirubin Negative, Urine Urobilinogen Normal, Ur Leukocyte Esterase Negative, Urine RBC 0 SEEN, Urine WBC 0 SEEN, Ur Squamous Epith Cells 0 SEEN, Urine Bacteria 0 SEEN, Urine Mucus 0 SEEN 07/01/23 06:20: WBC 11.9 H, RBC 3.86 L, Hgb 10.9 L, Hct 35.6 L, MCV 92.2, MCH 28.2, MCHC 30.6 L, RDW Std Deviation 50.4 H, RDW Coeff of [place] 14.8 H, Plt Count 318, MPV 9.8, Sodium 138, Potassium 4.0, Chloride 109 H, Carbon Dioxide 24.0, Anion Gap 5, BUN 24 H, Creatinine 1.56 H, Estim Creat Clear Calc 23.00, Est GFR (MDRD) Af Amer 41 L, Est GFR (MDRD) Non-Af 34 L, BUN/Creatinine Ratio 15.4, Glucose 105, Calcium 8.1 L, TSH 1.18, Blood Type O POSITIVE, Antibody Screen NEGATIVE Cardiology Labs/Tests 06/30/23 15:05: WBC 16.0 H, RBC 4.41, Hgb 12.3, Hct 39.7, MCV 90.0, MCH 27.9, M CHC 31.0 L, Plt Count 359, MPV 9.4, Immature Gran % (Auto) 0.800, Neut % (Auto) 82.3 H, Lymph % (Auto) 5.6 L, [place] % (Auto) 8.6, Eos % (Auto) 2.1, Baso % (Auto) 0.6, Absolute Neuts (auto) 13.2 H, Nucleated RBC % 0, PT 15.5 H, INR 1.2, Sodium 139, Potassium 3.9, Chloride 107, Carbon Dioxide 26.0, Anion Gap 6, BUN 19 H, C reatinine 1.14 H, Est GFR (MDRD) Af Amer 59 L, Est GFR (MDRD) Non-Af 48 L, BUN/Creatinine Ratio 16.7, Glucose 109 H, Calcium 8.5 06/30/23 17:35: Urine Color Yellow, Urine Clarity Clear, Urine pH 7.0, Ur Specific [place] 1.010, Urine Protein Negative, Urine Glucose (UA) Normal, Urine Ketones Negative, Urine Occult Blood Negative, Urine Nitrite Negative, Urine Bilirubin Negative, Urine Urobilinogen Normal, Ur Leukocyte Esterase Negative, Urine RBC 0 SEEN, Urine WBC 0 SEEN 07/01/23 06:20: WBC 11.9 H, RBC 3.86 L, Hgb 10.9 L, Hct 35.6 L, MCV 92.2, MCH 28.2, MCHC 30.6 L, Plt Count 318, MPV 9.8, Sodium 138, Potassium 4.0, Chloride 109 H, Carbon Dioxide 24.0, Anion Gap 5, BUN 24 H, Creatinine 1.56 H, Est GFR (MDRD) Af Amer 41 L, Est GFR (MDRD) Non-Af 34 L, BUN/Creatinine Ratio 15.4, Glucose 105, Calcium 8.1 L Rhythm: EKG: ECHO: Stress Test: Cardiac Cath: PCI: CT Surgery: Holter monitor: EPS: PPM: CXR: Chest CT Scan: Radiography Diagnostic Testing: Radiology Impression Chest X-Ray 06/30/23 14:33 IMPRESSION: Hyperinflation. No acute abnormality is seen. Scattered calcified granulomas. Electronically Signed: Mele Houston MD at 14:54 EDT , Hip/Pelvis X-Ray 06/30/23 14:33 IMPRESSION: Transverse fracture at the base of the left femoral neck with cephalic migration of the distal fracture fragment. Electronically Signed: Mele Houston MD at 14:55 EDT ,
[2023-07-01] MEDS: 0.9% Normal Saline (1000mL) 1,000 ML 75 ML IV (10:07)
--- NOTE | 2023-07-01 10:52 | PN.HOSP_ITS ---
Subjective Subjective Doing well, no issues overnight. Pain is controlled Objective Data Objective Data Vital Signs: Vital Signs Temp Pulse Resp BP Pulse Ox O2 Del Method O2 Flow Rate 98.9 F 59 L 18 127/55 H 93 Nasal Cannula 3 07/01/23 08:39 07/01/23 08:39 07/01/23 08:39 07/01/23 08:39 07/01/23 08:39 07/01/23 09:09 07/01/23 09:09 Oxygen Flow Rate (L/min) 3 Oxygen Delivery Method Nasal Cannula Weight: 132 lb 15.02 oz Body Mass Index (BMI) 23.5 Intake & Output: Intake and Output for Last 24 Hours 06/30/23 07/01/23 07/02/23 03:59 03:59 03:59 Intake Total 1000 / 1000 300 / 300 Output Total 1000 / 1000 300 / 300 Balance 0 / 0 0 / 0 Lab / Micro Data 07/01/23 06:20 07/01/23 06:20 Labs: Laboratory Results - last 24 hr 06/30/23 15:05: WBC 16.0 H, RBC 4.41, Hgb 12.3, Hct 39.7, MCV 90.0, MCH 27.9, M CHC 31.0 L, RDW Std Deviation 48.1 H, RDW Coeff of Polo 14.6, Plt Count 359, MPV 9.4, Immature Gran % (Auto) 0.800, Neut % (Auto) 82.3 H, Lymph % (Auto) 5.6 L, [place] % (Auto) 8.6, Eos % (Auto) 2.1, Baso % (Auto) 0.6, Absolute Neuts (auto) 13.2 H, Absolute Lymphs (auto) 0.89, Nucleated RBC % 0, PT 15.5 H, INR 1.2, Sodium 139, Potassium 3.9, Chloride 107, Carbon Dioxide 26.0, Anion Gap 6, BUN 19 H, Creatinine 1.14 H, Estim Creat Clear Calc 34.07, Est GFR (MDRD) Af Amer 59 L, Est GFR (MDRD) Non-Af 48 L, BUN/Creatinine Ratio 16.7, Glucose 109 H, Calcium 8.5 06/30/23 17:35: Urine Color Yellow, Urine Clarity Clear, Urine pH 7.0, Ur Spec ific Whick 1.010, Urine Protein Negative, Urine Glucose (UA) Normal, Urine Ketones Negative, Urine Occult Blood Negative, Urine Nitrite Negative, Urine Bilirubin Negative, Urine Urobilinogen Normal, Ur Leukocyte Esterase Negative, Urine RBC 0 SEEN, Urine WBC 0 SEEN, Ur Squamous Epith Cells 0 SEEN, Urine Bacteria 0 SEEN, Urine Mucus 0 SEEN 07/01/23 06:20: WBC 11.9 H, RBC 3.86 L, Hgb 10.9 L, Hct 35.6 L, MCV 92.2, MCH 28.2, MCHC 30.6 L, RDW Std Deviation 50.4 H, RDW Coeff of Polo 14.8 H, Plt Count 318, MPV 9.8, Sodium 138, Potassium 4.0, Chloride 109 H, Carbon Dioxide 24.0, Anion Gap 5, BUN 24 H, Creatinine 1.56 H, Estim Creat Clear Calc 23.00, Est GFR (MDRD) Af Amer 41 L, Est GFR (MDRD) Non-Af 34 L, BUN/Creatinine Ratio 15.4, Glucose 105, Calcium 8.1 L, TSH 1.18, Blood Type O POSITIVE, Antibody Screen NEGATIVE Radiography Diagnostic Testing: Radiology Impression Chest X-Ray 06/30/23 14:33 IMPRESSION: Hyperinflation. No acute abnormality is seen. Scattered calcified granulomas. Electronically Signed: Mele Houston MD at 14:54 EDT , Hip/Pelvis X-Ray 06/30/23 14:33 IMPRESSION: Transverse fracture at the base of the left femoral neck with cephalic migration of the distal fracture fragment. Electronically Signed: Mele Houston MD at 14:55 EDT , Physical Exam Narrative General: Alert, Oriented x3, Cooperative, No apparent distress HEENT: Atraumatic, PERRLA, EOMI, Normocephalic Oral: Moist Mucosa Neck: Supple, No JVD Lungs: Diminished, Normal air movement, No rhonchi, No wheeze, No rales Cardiovascular: Regular rate, Regular Rhythm, Normal S1, Normal S2, No murmurs Abdomen: Soft, Non Tender, Non-Distended, No Hepato-splenomegaly Extremities: No edema, Capillary Refill Less than 3 Seconds Skin: No rashes, No breakdown Musculoskeletal: Tenderness to palpation of left hip Neurological: No focal neurological deficits, Motor Exam 5/5 strength throughout other than left lower extremity due to fracture, Sensory exam intact to light touch and pain Psych/Mental Status: Flat Assessment & Plan Assessment/Plan (1) Closed fracture of left hip: PLAN: Plan 1. Left hip fracture ? Admit under inpatient status to [facility]. Orthopedics consulted. Preoperative evaluation as noted below. Notably is on Eliquis and Plavix, last doses of both on morning of 06/29, both now being held. Pain control with scheduled Tylenol, oxycodone as needed and IV Dilaudid as needed. PT/OT/case management consulted. 07/01/2023: Plan for operative repair tomorrow, per cardiology she is a moderate risk 2. Preoperative evaluation ? Cardiology consulted for assistance with preop evaluation. Complex cardiac history. Last echo in 03/2022 with EF 25%, severe global LV systolic dysfunction, global longitudinal strain abnormal, mild concentric LV hypertrophy. This was done when patient had NSTEMI at that time, required transfer to [facility] for further management. Currently on Eliquis for atrial flutter and Plavix for CAD with history of stenting, both being held. 3. Paroxysmal atrial flutter on Eliquis ? Continue home amiodarone and Coreg, holding home Eliquis. 4. History of CAD with stenting ? Holding home Plavix, continue home statin. Appreciate cardiology recommendations as noted above. 5. History of CKD stage IIIb ? Creatinine 1.14 on admit, at baseline. 07/01/2023: Slight rise in her creatinine, will start her on gentle IV fluids Chronic medical conditions: ? Hypothyroidism: Continue Synthroid. ? Hypertension: Continue home amlodipine and Coreg, holding home losartan. ? Hyperlipidemia: Continue home statin and Zetia. ? Mood disorder: Stable. Continue home sertraline and melatonin. ? GERD: Continue home PPI. DVT: SCDs Charges/Coding Visit Charges Inpatient E&M: 28405 Subs Hosp L2
--- NOTE | 2023-07-01 10:58 | CONS.ORTHO ---
HPI Consult Data Date of Consult: 07/01/23 HPI Narrative Reason for Consultation: Left hip pain HPI Narrative: EVENS MESSERORROW, is a 82 F with history of atrial flutter and chronic use of Eliquis and Plavix who presents today with left hip pain. Patient noted she was getting up out of a chair yesterday when she stumbled due to weakness in her leg got caught up in a blanket. She fell onto her left hip and presented with severe pain and inability to ambulate in the emergency department following that. Patient's [id number] is at the bedside and confirms patient lives at home and does not use a walker or cane regularly. Patient does have significant cardiac history and cardiac clearance has been obtained with associated moderate risk for this procedure. Patient reports pain is controlled at this time with mild left thigh pain. She had severe pain at time presentation and is rating her pain a 10 out of 10 throughout the day. She is currently on oxycodone with IV pain medications also ordered. Patient denies any new numbness or tingling. Patient does have history of chronic back pain and recently had an MRI and is awaiting her results. Again, patient [id number] was at bedside and confirmed her history. 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 Non-rheumatic mitral regurgitation Nonrheumatic mitral valve disorder NSTEMI (non-ST elevation myocardial infarction) Old myocardial infarction Osteoporosis Post-menopausal Pure hypercholesterolemia Tachycardia Home Medications Handicap placard #1 ea 11/19/20 [Rx Last Taken Unknown] sertraline 50 mg tablet 50 mg PO DAILY ANXIETY 05/06/21 [History Last Taken 06/30/23] hydroxyzine HCl 50 mg tablet 50 mg PO QHS PRN Sleep 02/09/22 [History Last Taken 02/08/22] nitroglycerin 0.4 mg sublingual tablet 0.4 mg sublingual Q5M PRN Chest Pain #25 tabs 02/25/22 [Rx Last Taken 04/20/22 04:30] apixaban 2.5 mg tablet (Eliquis) 2.5 mg PO Q12H 04/26/22 [History Last Taken 06/30/23] melatonin 10 mg tablet 10 mg PO QHS SLEEP 04/26/22 [History Last Taken 06/29/23] omeprazole 20 mg capsule,delayed release 20 mg PO DAILY GERD 04/26/22 [History Last Taken 06/30/23] amiodarone 200 mg tablet 200 mg PO DAILY dose reduced at [facility]. 05/04/22 [History Last Taken 06/30/23] acetaminophen 325 mg tablet (Tylenol) 650 mg PO Q6H PRN Pain 06/13/22 [History Last Taken Unknown] clopidogrel 75 mg tablet 75 mg PO DAILY 06/13/22 [History Last Taken 06/30/23] losartan 50 mg tablet 50 mg PO BID 06/13/22 [History Last Taken 06/30/23] pravastatin 80 mg tablet 80 mg PO DAILY 06/13/22 [History Last Taken 06/30/23] ondansetron 4 mg disintegrating tablet 4 mg PO Q8H PRN PRN Nausea #14 tabs 02/09/23 [Rx Last Taken Unknown] tramadol 50 mg tablet 50 mg PO TID PRN pain 06/22/23 [History Last Taken Unknown] amlodipine 5 mg tablet 5 mg PO DAILY 06/30/23 [History Last Taken 06/30/23] carvedilol 6.25 mg tablet 3.125 mg PO BID 06/30/23 [History Last Taken 06/30/23] ezetimibe 10 mg tablet 10 mg PO DAILY 06/30/23 [History Last Taken Unknown] levothyroxine 112 mcg tablet 112 mcg PO DAILY 06/30/23 [History Last Taken 06/30/23] Allergy/AdvReac Type Severity Reaction Status Date / Time lisinopril AdvReac Intermediate Cough Verified 06/30/23 13:50 Family History Mother Breast cancer Myocardial infarction CAD (coronary artery disease) Diabetes Father Myocardial infarction CAD (coronary artery disease) Brother Myocardial infarction Diabetes CAD (coronary artery disease) Sister Breast cancer Hypertension Surgical History H/O cardiac catheterization History of heart artery stent Presence of coronary angioplasty implant and graft (~09/25/13) Social History household members: none Smoking Status: Never smoker alcohol intake: never substance use type: does not use caffeine: No what type of physical activity do you participate in: walking frequency: 3-4 times per week duration: 45-60 minutes/day seatbelt use: always do you feel safe at home: Yes ROS ROS Narrative 14 point review of systems outside of what is mentioned in the HPI is negative. Vital Signs Vital Signs Vital Signs: 06/30/23 13:45 06/30/23 13:45 06/30/23 14:23 Temperature 98.2 F Temperature Source Temporal Pulse Rate 57 L Respiratory Rate 18 Respiratory Effort Normal Non-Labored Respiratory Depth Normal Respiratory Pattern Normal Blood Pressure 125/55 H Blood Pressure Mean 78 Blood Pressure Source Blood Pressure Position Blood Pressure Location Pulse Ox 93 84 Oxygen Delivery Method Nasal Cannula Room Air Oxygen Flow Rate (L/min) 3 06/30/23 15:44 06/30/23 17:00 06/30/23 18:49 Temperature 98.1 F Temperature Source Pulse Rate 74 62 64 Respiratory Rate 18 16 13 Respiratory Effort Respiratory Depth Respiratory Pattern Blood Pressure 120/99 H 126/61 H 136/115 H Blood Pressure Mean 106 82 122 Blood Pressure Source Blood Pressure Position Blood Pressure Location Pulse Ox 95 96 98 Oxygen Delivery Method Room Air Nasal Cannula Oxygen Flow Rate (L/min) 3 06/30/23 19:00 06/30/23 21:00 06/30/23 22:35 Temperature 97.9 F Temperature Source Oral Pulse Rate 64 72 64 Respiratory Rate 18 16 18 Respiratory Effort Respiratory Depth Respiratory Pattern Blood Pressure 164/85 H 149/77 H 155/68 H Blood Pressure Mean 111 101 97 Blood Pressure Source Monitor Blood Pressure Position Semi-Fowlers Blood Pressure Location Right Arm Pulse Ox 98 96 97 Oxygen Delivery Method Nasal Cannula Nasal Cannula Oxygen Flow Rate (L/min) 3 3 06/30/23 23:20 07/01/23 06:09 07/01/23 06:13 Temperature 98.3 F Temperature Source Oral Pulse Rate 58 L Respiratory Rate 18 Respiratory Effort Normal Non-Labored Normal Non-Labored Respiratory Depth Normal Normal Respiratory Pattern Normal Normal Blood Pressure 103/57 L Blood Pressure Mean 72 Blood Pressure Source Monitor Blood Pressure Position Semi-Fowlers Blood Pressure Location Left Arm Pulse Ox 97 Oxygen Delivery Method Nasal Cannula Nasal Cannula Nasal Cannula Oxygen Flow Rate (L/min) 3 3 3 07/01/23 07:58 07/01/23 08:39 07/01/23 09:09 Temperature 98.9 F Temperature Source Temporal Pulse Rate 59 L Respiratory Rate 18 Respiratory Effort Normal Non-Labored Respiratory Depth Normal Respiratory Pattern Normal Blood Pressure 127/55 H Blood Pressure Mean 79 Blood Pressure Source Monitor Blood Pressure Position Semi-Fowlers Blood Pressure Location Right Arm Pulse Ox 95 93 Oxygen Delivery Method Nasal Cannula Nasal Cannula Nasal Cannula Oxygen Flow Rate (L/min) 4 3 3 Weight Weight: 132 lb 15.02 oz Body Mass Index (BMI) 23.5 Physical Exam Const alert and oriented x3 Constitutional Narrative: Patient is mildly sleepy General Appearance: cooperative HEENT normocephalic Eyes PERRL Neck no JVD Resp normal respiratory effort Cardio Cardio Narrative: Abnormal pulse rate GI non-distended Extremity Extremity Narrative: Left lower extremity: Skin clean, dry, and intact. Limb is shortened and externally rotated Motor is intact dorsiflexion, EHL and plantar flexion. Sensation is intact to light touch saphenous, hilton,l superficial peroneal, deep peroneal and tibial distributions. Calves are soft and supple. Skin no wounds Neuro CN's II-XII intact bilaterally Psych mental status grossly normal Medical Records Data Attestation: I reviewed the patient's medical records Lab / Micro Data 07/01/23 06:20 07/01/23 06:20 Labs: Laboratory Results - last 24 hr 06/30/23 15:05: WBC 16.0 H, RBC 4.41, Hgb 12.3, Hct 39.7, MCV 90.0, MCH 27.9, MCHC 31.0 L, RDW Std Deviation 48.1 H, RDW Coeff of Polo 14.6, Plt Count 359, MPV 9.4, Immature Gran % (Auto) 0.800, Neut % (Auto) 82.3 H, Lymph % (Auto) 5.6 L, [place] % (Auto) 8.6, Eos % (Auto) 2.1, Baso % (Auto) 0.6, Absolute Neuts (auto) 13.2 H, Absolute Lymphs (auto) 0.89, Nucleated RBC % 0, PT 15.5 H, INR 1.2, Sodium 139, Potassium 3.9, Chloride 107, Carbon Dioxide 26.0, Anion Gap 6, BUN 19 H, Creatinine 1.14 H, Estim Creat Clear Calc 34.07, Est GFR (MDRD) Af Amer 59 L, Est GFR (MDRD) Non-Af 48 L, BUN/Creatinine Ratio 16.7, Glucose 109 H, Calcium 8.5 06/30/23 17:35: Urine Color Yellow, Urine Clarity Clear, Urine pH 7.0, Ur Specific [place] 1.010, Urine Protein Negative, Urine Glucose (UA) Normal, Urine Ketones Negative, Urine Occult Blood Negative, Urine Nitrite Negative, Urine Bilirubin Negative, Urine Urobilinogen Normal, Ur Leukocyte Esterase Negative, Urine RBC 0 SEEN, Urine WBC 0 SEEN, Ur Squamous Epith Cells 0 SEEN, Urine Bacteria 0 SEEN, Urine Mucus 0 SEEN 07/01/23 06:20: WBC 11.9 H, RBC 3.86 L, Hgb 10.9 L, Hct 35.6 L, MCV 92.2, MCH 28.2, MCHC 30.6 L, RDW Std Deviation 50.4 H, RDW Coeff of Polo 14.8 H, Plt Count 318, MPV 9.8, Sodium 138, Potassium 4.0, Chloride 109 H, Carbon Dioxide 24.0, Anion Gap 5, BUN 24 H, Creatinine 1.56 H, Estim Creat Clear Calc 23.00, Est GFR (MDRD) Af Amer 41 L, Est GFR (MDRD) Non-Af 34 L, BUN/Creatinine Ratio 15.4, Glucose 105, Calcium 8.1 L, TSH 1.18, Blood Type O POSITIVE, Antibody Screen NEGATIVE Imaging Radiology Impression Chest X-Ray 06/30/23 14:33 IMPRESSION: Hyperinflation. No acute abnormality is seen. Scattered calcified granulomas. Electronically Signed: Mele Houston MD at 14:54 EDT , Images reviewed by orthopedics. No acute fractures or shoulder dislocations appreciated Hip/Pelvis X-Ray 06/30/23 14:33 IMPRESSION: Transverse fracture at the base of the left femoral neck with cephalic migration of the distal fracture fragment. Electronically Signed: Mele Houston MD at 14:55 EDT , Images reviewed by the patient. Consistent with displaced transcervical femoral neck fracture Assessment & Plan Assessment/Plan (1) Closed fracture of left hip: PLAN: Natural history of the disease process and treatment options were discussed the patient. Patient has displaced transverse femoral neck fracture. Available treatment options were discussed including nonoperative treatment, closed duction percutaneous pinning, left hip hemiarthroplasty and left total replacement. Based on patient's age, overall health and minimal degenerative changes on the radiographs I recommended that hip hemiarthroplasty is appropriate treatment method for this patient. Cardiology has seen the patient states patient is at moderate risk for surgical intervention. Risk of benefit of the procedure were discussed with patient including but not limited to to blood loss that could require transfusion or cardiac stress, DVTs, PEs, nervous damage complex, risk of anesthesia including loss of life. Additionally we discussed the risk of intraoperative and postoperative fractures likely discrepancies and instability. Finally, we did discuss patient's cardiac health plays a significant role in her risk of significant complications associated with cardiovascular disease which can include loss of life. Patient and her [id number] were at bedside and do agree to proceed with surgical intervention. Plan at this time is to proceed with surgery tomorrow. Unfortunately patient is on Eliquis due to concern for blood loss and pharmaceutical recommendations will wait 48 hours prior to proceeding with surgery. Her last dose was yesterday morning. Will proceed with surgery midmorning tomorrow. (2) Chronic back pain: PLAN: We did discuss how chronic back pain and possible stenosis which could affect her ability to recover adequately including pain including lower extremity. (3) Paroxysmal atrial flutter: PLAN: Discussed patient's chronic use of anticoagulation associated with atrial flutter is unfortunately likely surgery until adequate time is transpired from her last dose of Eliquis. (4) CAD (coronary artery disease): PLAN: Potential effects of intra and postoperative complications were discussed the patient and family at bedside. (5) Old myocardial infarction: PLAN: Potential effects of intra and postoperative complications were discussed the patient and family at bedside.
--- NOTE | 2023-07-01 11:00 | CASEMGMT ---
MORA PRADHAN Assessment: Face to Face with pt for initial transition planning/care coordination assessment. RN CAROLYNN introduced self and role at [facility], pt voices understanding and consents to assessment. Pt lying in bed with DIL at bedside. Pt is A&O x4 and answers all questions appropriately at this time. Care providers, pharmacy, and demographics verified/updated. 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 Pt states I with ADLs and IADLs. PT states agreeable to SNF if recommended after surgery. Transportation: Pt drives self and denies concerns with transportation. Pt states family able to drive until she can drive again. DME: Handrails into shower HHC/SNF: Denies Hx of. Pt states no concerns with going home at time of dc, aggreeable to SNF if therapy recommends it. Pt states no further concerns/needs. CM to follow. Advised pt to ask CM if any further question/concerns/needs arise, voices understanding. Pt Goal: Home, agreeable to SNF if recommended. Plan: TBD pending surgery and therapy. Martín VELAZCO CM
[2023-07-01 14:27] VITALS: BP 104/56; PULSE 54; RESP 18; TEMP 36.6; O2SAT 94
[2023-07-01] MEDS: cycloBENZAPRine HCl 5 MG TABLET PO (16:42)
[2023-07-01 20:00] VITALS: BP 117/60; PULSE 58; RESP 18; TEMP 36.6; O2SAT 98
[2023-07-01] MEDS: MELATONIN 10 MG TABLET PO (21:36)
[2023-07-02] VITALS (23 sets, daily range): BP systolic 91–129; BP diastolic 47–84; PULSE 63–72; RESP 12–22; TEMP 36.5–36.8; O2SAT 76–98; BMI 23.5
[2023-07-02] MEDS: 0.9% Normal Saline (1000mL) 1,000 ML 75 ML IV ×2 (00:06→13:35)
[2023-07-02] MEDS: HYDROmorphone 0.5 MG/0.5 ML SYRINGE IV ×4 (00:06→20:49)
[2023-07-02] MEDS: Neomycin/Polymyxin/Dexameth 5ML OPTH.BTL 1 DRP OPHTHALMIC ×3 (06:04→20:48)
[2023-07-02 07:05] LABS: Absolute Lymphocyte Count 0.95 X10^3/uL (0.83-4.51); Absolute Neutrophil Count 14.4 X10^3/uL (2.0-7.7); Basophil# 0.07 X10^3/uL; Basophil% 0.4 % (0-1); Eosinophil# 0.01 X10^3/uL; Eosinophils% 0.1 % (0-5); Hematocrit 36.4 % (37-47); Hemoglobin 10.9 g/dL (12.0-15.0); Lymphocyte # 0.95 X10^3/ul (0.83-4.51); Lymphocyte % 5.5 % (19-41); Mean Corp Hgb Conc 29.9 g/dL (32-36); Mean Corpuscular Hgb 28.3 pg (27.0-32.0); Mean Corpuscular Volume 94.5 fL (81-99); Mean Platelet Vol. 10.1 fl (6.2-12.0); Monocyte# 1.82 X10^3/uL; Monocyte% 10.5 % (0-10); NRBC Flagged by Analyzer 0 % (0-5); Neutrophil # 14.35 X10^3/uL (2.7-7.7); POSITIVE DIFFERENTIAL YES; Platelet Count 335 K/mm3 (150-450); RBC Distribution Width CV 15.4 % (11.6-14.6); RBC Distribution Width SD 53.6 fl (35.1-43.9); Red Blood Count 3.85 M/mm3 (4.2-5.4); White Blood Count 17.3 K/mm3 (4.4-11.0)
[2023-07-02 07:37] LABS: Anion Gap 6 (5-15); BUN 36 mg/dL (7-18); BUN/Creat Ratio 20.5 RATIO (10-20); Calcium,Total 7.9 mg/dL (8.5-10.1); Chloride 110 mmol/L (98-107); Creatinine, Serum 1.76 mg/dL (0.55-1.02); EST Glomerular Filtration Rate 29 mL/min (>60); Est Glom Filt Rate - Afr Amer 36 mL/min (>60); Estimated Creatinine Clearance 20.39 ml/min; Glucose 130 mg/dL (74-106); Potassium 4.3 mmol/L (3.5-5.1); Sodium Level 137 mmol/L (136-145); Thyroid Stim Hormone (TSH) 0.45 uIU/mL (0.358-3.74)
[2023-07-02 08:42] LABS: Differential Indicated SCAN CRITERIA MET
[2023-07-02] MEDS: Carvedilol 6.25 MG Tablet PO (09:10)
[2023-07-02] MEDS: Amiodarone 200 MG Tablet PO (09:10)
--- NOTE | 2023-07-02 09:55 | PCM.PN.HOSP ---
Subjective Subjective Doing well, no issues overnight. Pain is controlled plan for operative repair today Objective Data Objective Data Vital Signs: Vital Signs Temp Pulse Resp BP Pulse Ox O2 Del Method O2 Flow Rate 97.7 F L 68 18 117/49 L 92 Nasal Cannula 3 07/02/23 08:21 07/02/23 08:21 07/02/23 08:21 07/02/23 08:21 07/02/23 08:21 07/02/23 08:52 07/02/23 08:52 Oxygen Flow Rate (L/min) 3 Oxygen Delivery Method Nasal Cannula Weight: 132 lb 15.02 oz Body Mass Index (BMI) 23.5 Intake & Output: Intake and Output for Last 24 Hours 07/01/23 07/02/23 07/03/23 03:59 03:59 03:59 Intake Total 1000 / 1000 1500 / 1500 Output Total 1000 / 1000 900 / 900 200 / 200 Balance 0 / 0 600 / 600 -200 / -200 Lab / Micro Data 07/02/23 05:26 07/02/23 05:26 Labs: Laboratory Results - last 24 hr 07/01/23 06:20: Crossmatch See Detail 07/02/23 05:26: WBC 17.3 H, RBC 3.85 L, Hgb 10.9 L, Hct 36.4 L, MCV 94.5, MCH 28.3, MCHC 29.9 L, RDW Std Deviation 53.6 H, RDW Coeff of Polo 15.4 H, Plt Count 335, MPV 10.1, Immature Gran % (Auto) 0.500, Neut % (Auto) 83.0 H, Lymph % (Auto) 5.5 L, [place] % (Auto) 10.5 H, Eos % (Auto) 0.1, Baso % (Auto) 0.4, Absolute Neuts (auto) 14.4 H, Absolute Lymphs (auto) 0.95, Nucleated RBC % 0, Diff Path Review June, Sodium 137, Potassium 4.3, Chloride 110 H, Carbon Dioxide 21.0, Anion Gap 6, BUN 36 H, Creatinine 1.76 H, Estim Creat Clear Calc 20.39, Est GFR (MDRD) Af Amer 36 L, Est GFR (MDRD) Non-Af 29 L, BUN/Creatinine Ratio 20.5 H, Glucose 130 H, Calcium 7.9 L, TSH 0.45 Physical Exam Narrative General: Alert, Oriented x3, Cooperative, No apparent distress HEENT: Atraumatic, PERRLA, EOMI, Normocephalic Oral: Moist Mucosa Neck: Supple, No JVD Lungs: Diminished, Normal air movement, No rhonchi, No wheeze, No rales Cardiovascular: Regular rate, Regular Rhythm, Normal S1, Normal S2, No murmurs Abdomen: Soft, Non Tender, Non-Distended, No Hepato-splenomegaly Extremities: No edema, Capillary Refill Less than 3 Seconds Skin: No rashes, No breakdown Musculoskeletal: Tenderness to palpation of left hip Neurological: No focal neurological deficits, Motor Exam 5/5 strength throughout other than left lower extremity due to fracture, Sensory exam intact to light touch and pain Psych/Mental Status: Flat Assessment & Plan Assessment/Plan (1) Closed fracture of left hip: PLAN: Plan 1. Left hip fracture ? Admit under inpatient status to [facility]. Orthopedics consulted. Preoperative evaluation as noted below. Notably is on Eliquis and Plavix, last doses of both on morning of 06/29, both now being held. Pain control with scheduled Tylenol, oxycodone as needed and IV Dilaudid as needed. PT/OT/case management consulted. 07/01/2023: Plan for operative repair tomorrow, per cardiology she is a moderate risk 07/02/2023: Plan for operative repair today, can resume Eliquis tomorrow if okay with orthopedic surgery 2. Preoperative evaluation ? Cardiology consulted for assistance with preop evaluation. Complex cardiac history. Last echo in 03/2022 with EF 25%, severe global LV systolic dysfunction, global longitudinal strain abnormal, mild concentric LV hypertrophy. This was done when patient had NSTEMI at that time, required transfer to [facility] for further management. Currently on Eliquis for atrial flutter and Plavix for CAD with history of stenting, both being held. 3. Paroxysmal atrial flutter on Eliquis ? Continue home amiodarone and Coreg, holding home Eliquis. 4. History of CAD with stenting ? Holding home Plavix, continue home statin. Appreciate cardiology recommendations as noted above. 5. History of CKD stage IIIb ? Creatinine 1.14 on admit, at baseline. 07/01/2023: Slight rise in her creatinine, will start her on gentle IV fluids 07/02/2023: Renal function has continued to climb to 1.76 today, will discontinue her losartan and continue with IV fluids Chronic medical conditions: ? Hypothyroidism: Continue Synthroid. ? Hypertension: Continue home amlodipine and Coreg, holding home losartan. ? Hyperlipidemia: Continue home statin and Zetia. ? Mood disorder: Stable. Continue home sertraline and melatonin. ? GERD: Continue home PPI. DVT: SCDs Charges/Coding Visit Charges Inpatient E&M: 50851 Subs Hosp L2
[2023-07-02 11:08] LABS: Base Excess -6 mmol/L (-2 to +2); Bicarbonate 19.9 mmol/L (22-26); Blood Gas Specimen Type ART; Mode Not entered; O2 Delivery Device Room Air; PO2 34 mmHG (75-100); SITE Not entered; SO2 61 % (95-99); Time Given 11:06:02; Total Carbon Dioxide 21 mmol/L; pCO2 37.7 mmHg (35-45); pH 7.33 (7.35-7.45)
--- NOTE | 2023-07-02 11:16 | PCM.PN.BLA ---
Progress Note Patient was brought back to the operating room noted to have pulse oximetry of 34% on room air. Placed on nonrebreather. Art line was placed. ABGs were obtained. Anesthesia discussed case with primary service. Unfortunately, at this time we need to establish reason for diminished oxygen prior to proceeding with surgery. Family was notified. Plan is to spend the next 24 hours to further optimize the patient or longer if needed and proceed with surgery when patient is medically stable. Assessment & Plan Assessment/Plan (1) Hypoxia: PLAN: Plan As noted above in the subjective patient has low oxygenation and surgery is being postponed today.
--- NOTE | 2023-07-02 11:21 | RAD_ITS ---
STUDY: X-RAY CHEST REASON FOR EXAM: Female, 82 years old. Hypoxia TECHNIQUE: Frontal view of the chest COMPARISON: 06/30/2023 FINDINGS: There are small bilateral pleural effusions with overlying atelectasis. There are no pulmonary infiltrates. There is no pneumothorax. The heart is stable in size. The visualized osseous structures are within normal limits. RAD/Chest 1 View (Portable) IMPRESSION: Small bilateral pleural effusions with overlying atelectasis. Electronically Signed: Arturo Mast MD at 13:34 EDT ,
--- NOTE | 2023-07-02 11:21 | ECHOD_ITS ---
Reason For Study: CHF Procedure This was a 2D Doppler, Color Flow transthoracic echocardiogram. Patient scanned supine due to hip fracture. The study was technically difficult. Exam performed portable in ICU/CCU. Left Ventricle Normal LV size. Mild concentric left ventricular hypertrophy. The left ventricular ejection fraction is 60 %. Stage 2 diastolic dysfunction. Right Ventricle Normal right ventricle. Atria The left and right atria are normal. Mitral Valve Trivial mitral valve insufficiency. Tricuspid Valve Moderate (2+) tricuspid valve insufficiency. Right ventricular systolic pressure estimated to be 49 mmHg. Aortic Valve Trisinus/trileaflet aortic valve. Mild focal aortic valve thickening. Mild (1+) aortic valve insufficiency. Pulmonic Valve The pulmonic valve is not well visualized. Trivial-mild pulmonic valve insufficiency identified. Great Vessels Normal sized aortic root. The inferior vena cava is dilated. Pericardium/Pleural No pericardial effusion. MMode/2D Measurements & Calculations LVIDd: 4.1 cm IVSd: 1.2 cm Ao root diam: 2.7 cm LVIDs: 2.9 cm LVPWd: 1.1 cm FS: 29.5 % LAV(MOD-sp4): 30.5 ml LA A4 area: 14.5 cm2 LA dimension(2D): 3.5 cm Time Measurements MV dec time: 0.29 sec Doppler Measurements & Calculations MV E max gage: 45.3 cm/sec Lat Peak E' Gage: 9.8 cm/sec Med Peak E' Gage: 5.2 cm/sec MV A max gage: 87.2 cm/sec E/E' lat: 4.6 E/E' med: 8.7 MV E/A: 0.52 Ao V2 max: 179.6 cm/sec AI max gage: 297.4 cm/sec LV V1 max: 93.0 cm/sec Ao max P.9 mmHg AI max P.4 mmHg LV V1 max P.5 mmHg Ao V2 mean: 129.1 cm/sec AI dec slope: 143.7 cm/sec2 Ao mean P.2 mmHg AI P1/2t: 606.2 msec Ao V2 VTI: 34.7 cm PA V2 max: 82.1 cm/sec TR max gage: 289.6 cm/sec TR max P.6 mmHg ECHO/Echo Complete Interpretation Summary The study was technically difficult. Mild concentric left ventricular hypertrophy. The left ventricular ejection fraction is 60 %. Stage 2 diastolic dysfunction. Moderate (2+) tricuspid valve insufficiency. Right ventricular systolic pressur e estimated to be 49 mmHg. Mild (1+) aortic valve insufficiency. The inferior vena cava is dilated Ordering Physician: Reji Saravia Referring Physician: Kenji Herbert Performed By: Aixa Lozano, BRETT, RVT
--- NOTE | 2023-07-02 11:36 | NURSING ---
PT WAS RETURNED TO PRE-OP DUE TO HYPOXIA IN OR. PT DID NOT HAVE ANY ANESTHESIA. PT HAS NO INCREASED WORK OF BREATHING CURRENTLY, BUT IS ON 10L NON-REBREATHER SAT 90-94%. ART LINE WAS PLACED IN PACU BY 103/34 AT THIS TIME, PT TO BE MOVED TO ICU.
--- NOTE | 2023-07-02 13:07 | PCMCONS.TICU ---
HPI Consult Data Date of Consult: 07/02/23 HPI Narrative Reason for Consultation: Acute hypercapnic hypoxemic respiratory failure HPI Narrative: 82Y F PMH AF on Eliquis, CAD, CHF (EF 25-30% on previous TTE) who was admitted a few days ago sp fall and found to have hip fracture. Pt was admitted and cardiology was consulted for cardiac clearance. Operative repair of fracture delayed until today given patient's Eliquis use but when patient went to OR anesthesia noted pt was noted to have poor sats on pulse ox. ABG checked which was 7.33/pCO2 37/pO2 34/HCO3 19. Pt was transferred to the ICU before any attempted surgery for further optimization and started on NIV. Pulmonary/critical care consulted for further assessment. On my assessment patient is on NIV/AVAPS FiO2 75%. BPs soft with MAPs 65 after receiving pain medication earlier. She has Kay but not much urine output noted at this time. Pt is lethargic but otherwise awake/alert. No reported fevers/chills/cough/sputum/chest pain/N/V. [facility] Medical History Abnormal ECG Abnormal serum enzyme level Abnormal stress test Angina pectoris Atherosclerotic heart disease of [place] coronary artery without angina pectoris Bladder prolapse Bleeding tendency Chest pain Essential hypertension GERD (gastroesophageal reflux disease) High cholesterol History of coronary artery stent placement (~09/25/13) History of stress test Hypertension Hypothyroidism Ischemic cardiomyopathy [employer] use of drug Non-rheumatic mitral regurgitation Nonrheumatic mitral valve disorder NSTEMI (non-ST elevation myocardial infarction) Old myocardial infarction Osteoporosis Post-menopausal Pure hypercholesterolemia Tachycardia Home Medications Handicap placard #1 ea 11/19/20 [Rx Last Taken Unknown] sertraline 50 mg tablet 50 mg PO DAILY ANXIETY 05/06/21 [History Last Taken 06/30/23] hydroxyzine HCl 50 mg tablet 50 mg PO QHS PRN Sleep 02/09/22 [History Last Taken 02/08/22] nitroglycerin 0.4 mg sublingual tablet 0.4 mg sublingual Q5M PRN Chest Pain #25 tabs 02/25/22 [Rx Last Taken 04/20/22 04:30] apixaban 2.5 mg tablet (Eliquis) 2.5 mg PO Q12H 04/26/22 [History Last Taken 06/30/23] melatonin 10 mg tablet 10 mg PO QHS SLEEP 04/26/22 [History Last Taken 06/29/23] omeprazole 20 mg capsule,delayed release 20 mg PO DAILY GERD 04/26/22 [History Last Taken 06/30/23] amiodarone 200 mg tablet 200 mg PO DAILY dose reduced at [facility]. 05/04/22 [History Last Taken 06/30/23] acetaminophen 325 mg tablet (Tylenol) 650 mg PO Q6H PRN Pain 06/13/22 [History Last Taken Unknown] clopidogrel 75 mg tablet 75 mg PO DAILY 06/13/22 [History Last Taken 06/30/23] losartan 50 mg tablet 50 mg PO BID 06/13/22 [History Last Taken 06/30/23] pravastatin 80 mg tablet 80 mg PO DAILY 06/13/22 [History Last Taken 06/30/23] ondansetron 4 mg disintegrating tablet 4 mg PO Q8H PRN PRN Nausea #14 tabs 02/09/23 [Rx Last Taken Unknown] tramadol 50 mg tablet 50 mg PO TID PRN pain 06/22/23 [History Last Taken Unknown] amlodipine 5 mg tablet 5 mg PO DAILY 06/30/23 [History Last Taken 06/30/23] carvedilol 6.25 mg tablet 3.125 mg PO BID 06/30/23 [History Last Taken 06/30/23] ezetimibe 10 mg tablet 10 mg PO DAILY 06/30/23 [History Last Taken Unknown] levothyroxine 112 mcg tablet 112 mcg PO DAILY 06/30/23 [History Last Taken 06/30/23] Allergy/AdvReac Type Severity Reaction Status Date / Time lisinopril AdvReac Intermediate Cough Verified 06/30/23 13:50 Family History Mother Breast cancer Myocardial infarction CAD (coronary artery disease) Diabetes Father Myocardial infarction CAD (coronary artery disease) Brother Myocardial infarction Diabetes CAD (coronary artery disease) Sister Breast cancer Hypertension Surgical History H/O cardiac catheterization History of heart artery stent Presence of coronary angioplasty implant and graft (~09/25/13) Social History household members: none Smoking Status: Never smoker alcohol intake: never substance use type: does not use caffeine: No what type of physical activity do you participate in: walking frequency: 3-4 times per week duration: 45-60 minutes/day seatbelt use: always do you feel safe at home: Yes ROS ROS Narrative Full 12 point ROS completed and neg nuless stated in HPI above. Objective Data Objective Data Vital Signs: Vital Signs Last response Temperature 36.5 C L 07/02/23 11:41 Temperature Source Temporal 07/02/23 11:41 Pulse Rate 68 07/02/23 11:41 Respiratory Rate 18 07/02/23 11:41 Respiratory Effort Normal 07/02/23 08:52 Respiratory Depth Normal 07/02/23 08:52 Respiratory Pattern Normal 07/02/23 08:52 Blood Pressure 128/53 H 07/02/23 11:41 Blood Pressure Mean 78 07/02/23 11:41 Blood Pressure Source Arterial Line 07/02/23 11:41 Blood Pressure Position Semi-Fowlers 07/02/23 11:41 Blood Pressure Location Left Arm 07/02/23 08:21 Pulse Ox 93 07/02/23 11:41 Oxygen Delivery Method Non-Rebreather 07/02/23 11:41 Oxygen Flow Rate (L/min) 10 07/02/23 11:41 I&O: I&O Last 24 Hours 07/01/23 07/02/23 07/02/23 23:59 11:59 23:59 Intake Total 1000 / 1300 200 / 200 Output Total 200 / 500 600 / 600 Balance 800 / 800 -400 / -400 I&O: Total Stay 06/30/23 13:44 thru 07/02/23 08:21 Intake Total 2500 Output Total 2100 Balance 400 Current Meds Ordered / Administered: Current meds ordered / Administered Generic Name Dose Route Start Last Admin Trade Name Freq PRN Reason Stop Dose Admin Acetaminophen 1,000 mg 06/30/23 22:00 07/02/23 05:55 Acetaminophen 500 Mg Tablet PO Not Given Q8 ELIZABETH Amiodarone HCl 200 mg 07/01/23 10:00 07/02/23 09:10 Amiodarone 200 Mg Tablet PO 200 mg DAILY ELIZABETH Administration Amlodipine Besylate 5 mg 07/01/23 10:00 07/02/23 12:48 Amlodipine 5 Mg Tablet PO Not Given DAILY [facility] Protocol Aspirin 81 mg 07/01/23 10:00 07/02/23 12:48 Aspirin E.C. 81 Mg Tablet PO Not Given DAILY [facility] Calcium Carbonate 500 mg 06/30/23 22:00 07/02/23 12:49 Calcium Carbonate 500 Mg Tablet PO Not Given BID [facility] Carvedilol 6.25 mg 06/30/23 22:00 07/02/23 09:10 Carvedilol 6.25 Mg Tablet PO 6.25 mg BID ELIZABETH Administration Protocol Cyclobenzaprine HCl 5 mg 07/01/23 15:26 07/01/23 16:42 Cyclobenzaprine Hcl 5 Mg Tablet PO 5 mg TID PRN Administration MUSCLE SPASM Ezetimibe 10 mg 07/01/23 10:00 07/02/23 12:49 Ezetimibe 10 Mg Tablet PO Not Given DAILY [facility] Hydromorphone HCl 0.5 mg 06/30/23 21:41 07/02/23 06:05 Hydromorphone 0.5 Mg/0.5 Ml Syringe IV 0.5 mg Q3H PRN PRN Administration Pain Score 6-10 Sodium Chloride 250 mls @ 15 mls/hr 06/30/23 21:45 IV .[id number] PRN Saline Flush Sodium Chloride 1,000 mls @ 75 mls/hr 07/01/23 09:45 07/02/23 00:06 IV 75 mls/hr .[id number] ELIZABETH Administration Levothyroxine Sodium 112 mcg 07/01/23 06:00 07/02/23 05:55 Levothyroxine 112 Mcg Tablet PO Not Given DAILY@0600 [facility] Melatonin 10 mg 06/30/23 22:00 07/01/23 21:36 Melatonin 10 Mg Tablet PO 10 mg QHS ELIZABETH Administration Neomycin/Polymyxin/Dexamethasone 1 drp 06/30/23 22:00 07/02/23 06:04 Neomycin/Polymyxin/Dexameth 5ml Opth.Btl OPHTHALMIC 1 drp TID ELIZABETH Administration Ondansetron HCl 4 mg 06/30/23 21:41 06/30/23 22:30 Ondansetron 4 Mg/2 Ml Vial IV 4 mg Q8H PRN PRN Administration NAUSEA/VOMITING Oxycodone HCl 5 mg 06/30/23 21:41 07/01/23 21:35 Oxycodone 5 Mg Tablet PO 5 mg Q4H PRN PRN Administration Pain Score 4-10 Pantoprazole Sodium 20 mg 07/01/23 10:00 07/02/23 12:48 Pantoprazole Sodium 20 Mg Tablet PO Not Given DAILY ELIZABETH Pravastatin Sodium 80 mg 07/01/23 10:00 07/02/23 12:48 Pravastatin 80 Mg Tablet PO Not Given DAILY ELIZABETH Sertraline HCl 50 mg 07/01/23 10:00 07/02/23 12:49 Sertraline 50 Mg Tablet PO Not Given DAILY ELIZABETH Sodium Chloride 10 - 40 ml 06/30/23 21:45 07/01/23 08:41 0.9% Saline Lock 10 Ml Syringe IV 10 ml UD PRN Administration SALINE FLUSH Lab / Micro Data 07/02/23 05:26 07/02/23 05:26 Labs: Laboratory Results - last 24 hr 07/01/23 06:20: Crossmatch See Detail 07/02/23 05:26: WBC 17.3 H, RBC 3.85 L, Hgb 10.9 L, Hct 36.4 L, MCV 94.5, MCH 28.3, MCHC 29.9 L, RDW Std Deviation 53.6 H, RDW Coeff of [place] 15.4 H, Plt Count 335, MPV 10.1, Immature Gran % (Auto) 0.500, Neut % (Auto) 83.0 H, Lymph % (Auto) 5.5 L, George % (Auto) 10.5 H, Eos % (Auto) 0.1, Baso % (Auto) 0.4, Absolute Neuts (auto) 14.4 H, Absolute Lymphs (auto) 0.95, Nucleated RBC % 0, Diff Path Review June, Sodium 137, Potassium 4.3, Chloride 110 H, Carbon Dioxide 21.0, Anion Gap 6, BUN 36 H, Creatinine 1.76 H, Estim Creat Clear Calc 20.39, Est GFR (MDRD) Af Amer 36 L, Est GFR (MDRD) Non-Af 29 L, BUN/Creatinine Ratio 20.5 H, Glucose 130 H, Calcium 7.9 L, TSH 0.45 ABG Data ABG results: ABG 07/02/23 11:01 Specimen Type ART Sample Site Not entered pH 7.33 L Bicarbonate Actual 19.9 L Total CO2 21 Base Excess -6 L O2 Saturation 61 L O2 % 21.0 ABG pCO2 37.7 ABG pO2 34 L* O2 Delivery Device Room Air Vent Mode Not entered Crit Call To/Read Back Yes Blood Gas Notified Whom herb Blood Gas Notified Time 11:06:02 Assessment and Plan . Assessment and plan: PE: General: Well developed, elderly female, + MV HEENT: anicteric Sclera; nl nose; supple neck, no masses Cardiovascular: Regular Rate and Rhythm; No murmurs, rubs, gallops; no displaced PMI Respiratory: diminished; no crackles, wheezes, or rhonchi Abdominal: Non-tender; Non distended; hypoBS x 4; No Hepatosplenomegaly Extremities: Warm, well perfused; no overt abnl beyond Lt sided ecchymosis and mild ext rotation of LLE, + palp distal pulses, No clubbing, cyanosis; capillary refill < 2 sec Neurological: lethargic but awake/alert, no gross deficits A/P: #Acute hypoxemic hypercapnic respiratory failure #?CHF exacerbation #Hip fracture #Leukocytosis #NANCY on CKD #Hx AFib/flutter on home Eliquis #SP fall #CAD #Hypothyroidism -Cont NIV/AVAPS, settings reviewed/adjusted, repeat blood gas from arterial line again shows mild combined acidosis and hypoxemia --> can attempt transition to HHFNC to allow for breaks if patient awake/alert but would cont to use NIV with all naps + qHS; likely precipitated to some extent by narcotic use to treat acute pain a/w fracture but contributing factors included CHF/pHTN +/- PNA/acute PE (less likely given home Eliquis) -Will get noncontrasted CT chest to evaluate further, O2 req likely too high for VQ scan but would pursue when possible to look for other shunts -TTE noted with preserved EF but grade II DD & likely notable pHTN; cardiology on board --> hold losartan/carvedilol/amlo for now given soft BPs, will give Lasix x1 & assess clinical response, cont strict I/Os, monitor renal function/lytes -Rising WBCs but afebrile and no obvious source of infection; ?stress-related; cont monitoring but low threshold to start emp Abx -Cont amio; monitor HR, currently NSR, on Eliquis at home but currently on hold -Cont pain control but judicious use given above, avoid sedatives; can use Precedex if significant agitation/anxiety -Ortho on board for operative repair when pt more stable -Cont home levothyroxine NPO PPI Guarded prognosis Critical Care Time: 60 min The entirety of this encounter was done via Telemedicine. Consent obtained.
--- NOTE | 2023-07-02 14:38 | CT_ITS ---
INDICATION: acute respiratory failure EXAMINATION: CT CHEST WITHOUT CONTRAST - CT Chest W/O Contrast Injection TECHNIQUE: Helically acquired images were obtained of the chest. A radiation dose optimization technique was used for this scan. IV Contrast dosage and agent: None. RADIATION DOSAGE (If Supplied By Facility): CTDIvol = ( 8.38 ) mGy, DLP = ( 286.94 ) mGycm COMPARISON: FINDINGS: LUNGS, PLEURA AND LARGE AIRWAYS: Bilateral mild pleural effusions with basilar consolidation/atelectasis. Left upper lobe calcified granuloma. Patchy groundglass densities, right more than left. No pneumothorax. THYROID: No thyroid lesions. HEART AND PERICARDIUM: Heart size is slightly enlarged. No pericardial effusion. CORONARY ARTERIES: Coronary artery calcifications are noted VESSELS: Calcified aortic arch. MEDIASTINUM AND ZAC: No mediastinal or hilar adenopathy. Esophagus is unremarkable. No hiatal hernia. UPPER ABDOMEN: No acute pathology. BONES: No suspicious lytic or blastic abnormality. CT/Chest without Contrast IMPRESSION: Bilateral mild pleural effusions with basilar consolidation/atelectasis. Left upper lobe calcified granuloma. Patchy groundglass densities, right more than left. Mild cardiomegaly. Electronically Signed: Ezio Mancera DO at 18:35 EDT Reading Location ID and State: [facility] / [place] Tel [phone], Service support ,
[2023-07-02 15:04] LABS: Base Excess -7 mmol/L (-2 to +2); Bicarbonate 19.3 mmol/L (22-26); Blood Gas Specimen Type ART; Mode avaps; O2 Delivery Device BiPAP; PEEP 10; PO2 106 mmHG (75-100); RR 12; SITE Art Line; SO2 98 % (95-99); Total Carbon Dioxide 20 mmol/L; pCO2 37.8 mmHg (35-45); pH 7.32 (7.35-7.45)
[2023-07-02] MEDS: Furosemide 40 MG/4 ML Vial IV (17:17)
[2023-07-02] MEDS: MELATONIN 10 MG TABLET PO (20:48)
[2023-07-02] MEDS: Calcium Carbonate 500 MG Tablet PO (20:49)
[2023-07-02] MEDS: Acetaminophen 500 MG Tablet 1000 MG PO (20:51)
[2023-07-03] VITALS (34 sets, daily range): BP systolic 92–150; BP diastolic 43–107; PULSE 51–77; RESP 12–26; TEMP 35.7–37; O2SAT 84–100; BMI 22.7
[2023-07-03 01:51] LABS: Base Excess 1 mmol/L (-2 to +2); Bicarbonate 25.4 mmol/L (22-26); Blood Gas Specimen Type ART; Mode Not entered; O2 Delivery Device HFNC; PO2 56 mmHG (75-100); SITE R Brach; SO2 90 % (95-99); Total Carbon Dioxide 27 mmol/L; pCO2 36.8 mmHg (35-45); pH 7.45 (7.35-7.45)
--- NOTE | 2023-07-03 02:47 | CPS ---
Patient became agitated and disconnected bipap circuit from mask. Patient's spo2 dropped to 49%. Fio2 increased to 100% to allow patient to recover. Bipap taken off briefly due to agitation and placed on airvo at 60L and 90%. ABG drawn, no critical values. Patient placed back on bipap for the night.
[2023-07-03 04:15] LABS: Absolute Lymphocyte Count 0.72 X10^3/uL (0.83-4.51); Basophil# 0.04 X10^3/uL; Basophil% 0.2 % (0-1); Hematocrit 32.2 % (37-47); Hemoglobin 10.1 g/dL (12.0-15.0); Lymphocyte # 0.72 X10^3/ul (0.83-4.51); Lymphocyte % 3.7 % (19-41); Mean Corp Hgb Conc 31.4 g/dL (32-36); Mean Corpuscular Hgb 28.2 pg (27.0-32.0); Mean Corpuscular Volume 89.9 fL (81-99); Mean Platelet Vol. 9.9 fl (6.2-12.0); Monocyte% 8.7 % (0-10); NRBC Flagged by Analyzer 0 % (0-5); Neutrophil # 17.03 X10^3/uL (2.7-7.7); Neutrophil % 86.8 % (47-70); POSITIVE DIFFERENTIAL YES; Platelet Count 278 K/mm3 (150-450); RBC Distribution Width CV 15.1 % (11.6-14.6); RBC Distribution Width SD 49.6 fl (35.1-43.9); Red Blood Count 3.58 M/mm3 (4.2-5.4); White Blood Count 19.6 K/mm3 (4.4-11.0)
[2023-07-03 04:21] LABS: Differential Indicated SCAN CRITERIA MET
[2023-07-03 04:36] LABS: Anion Gap 8 (5-15); BUN 31 mg/dL (7-18); BUN/Creat Ratio 24.6 RATIO (10-20); Chloride 109 mmol/L (98-107); Creatinine, Serum 1.26 mg/dL (0.55-1.02); EST Glomerular Filtration Rate 43 mL/min (>60); Est Glom Filt Rate - Afr Amer 52 mL/min (>60); Estimated Creatinine Clearance 28.48 ml/min; Glucose 145 mg/dL (74-106); Potassium 3.4 mmol/L (3.5-5.1); Sodium Level 142 mmol/L (136-145)
[2023-07-03 05:24] LABS: Differential Comment SCANNED
[2023-07-03] MEDS: dexMEDEtomidine 400 MCG in 0.9% Normal Saline (100mL Bag) 96 ML 7.5 MCG CONT INF (06:00)
--- NOTE | 2023-07-03 06:00 | NURSING ---
Patient became increasingly agitated and began pulling at everything, including removing her bipap and pulse ox. She is stating that her children will be here to pick us up and that we should just leave before you get in trouble. She is very paranoid and when offered a mouth swab stated, Yeah, right. I'm not falling for that trick. Patient is continuing to not make sense and attempting to grab/hit staff. After contacting the hospitalist and the cotton weigher operator, it was decided to start Precedex and send down a urine culture.
[2023-07-03] MEDS: 0.9% Normal Saline (1000mL) 1,000 ML 75 ML IV (06:16)
[2023-07-03] MEDS: 0.9% Saline Lock 10 ML Syringe IV (06:25)
--- NOTE | 2023-07-03 06:31 | NURSING ---
Patient did have IV fluids running from 5 until 615, although the MAR shows that the fluids were empty.
[2023-07-03 06:51] LABS: Mucous, Urine 0 SEEN /hpf (<or=2+)
[2023-07-03 07:02] LABS: Color, Urine Yellow (Yellow); Glucose, Dipstick Normal (Normal); Ketone-Dipstick 50 mg/dl (Negative); Leukocyte Esterase-Dipstick 25 /ul (Negative); Nitrite-Dipstick Negative (Negative); Occult Blood-Urine 250 /ul (Negative); Protein-Dipstick 100 mg/dl (Negative); Urine Bilirubin Dipstick Negative (Negative); Urine Clarity Clear (Clear); Urine Urobilinogen Normal (Normal)
[2023-07-03 07:46] LABS: Bacteria 1+ /hpf (None Seen); Red Blood Cells-Urine 25-50 SEEN /hpf (0-5); Squamous Epithelial Cells - UA 0-5 SEEN /hpf (5-10); White Blood Cells 0-5 SEEN /hpf (0-5)
--- NOTE | 2023-07-03 08:37 | PN.HOSP_ITS ---
Subjective Subjective Had to be placed on Airvo last night for hypoxia again Objective Data Objective Data Vital Signs: Vital Signs Temp Pulse Resp BP Pulse Ox O2 Del Method O2 Flow Rate 97.8 F 77 18 122/74 H 86 Airvo 60 07/03/23 06:00 07/03/23 07:00 07/03/23 07:00 07/03/23 07:00 07/03/23 07:00 07/03/23 07:00 07/03/23 07:00 FiO2 75 07/03/23 07:00 Oxygen Flow Rate (L/min) 60 Oxygen Delivery Method Airvo Weight: 128 lb 8.472 oz Body Mass Index (BMI) 22.7 Intake & Output: Intake and Output for Last 24 Hours 07/02/23 07/03/23 07/04/23 03:59 03:59 03:59 Intake Total 1500 / 1500 2000 / 2100 248.14 / 248.14 Output Total 900 / 900 1850 / 1850 600 / 600 Balance 600 / 600 150 / 250 -351.86 / -351.86 Lab / Micro Data 07/03/23 04:05 07/03/23 04:05 Labs: Laboratory Results - last 24 hr 07/01/23 06:20: Crossmatch See Detail 07/02/23 05:26: WBC 17.3 H, RBC 3.85 L, Hgb 10.9 L, Hct 36.4 L, MCV 94.5, MCH 28.3, MCHC 29.9 L, RDW Std Deviation 53.6 H, RDW Coeff of [place] 15.4 H, Plt Count 335, MPV 10.1, Immature Gran % (Auto) 0.500, Neut % (Auto) 83.0 H, Lymph % (Auto) 5.5 L, [place] % (Auto) 10.5 H, Eos % (Auto) 0.1, Baso % (Auto) 0.4, Absolute Neuts (auto) 14.4 H, Absolute Lymphs (auto) 0.95, Nucleated RBC % 0, Diff Path Review June, Sodium 137, Potassium 4.3, Chloride 110 H, Carbon Dioxide 21.0, Anion Gap 6, BUN 36 H, Creatinine 1.76 H, Estim Creat Clear Calc 20.39, Est GFR (MDRD) Af Amer 36 L, Est GFR (MDRD) Non-Af 29 L, BUN/Creatinine Ratio 20.5 H, Glucose 130 H, Calcium 7.9 L, TSH 0.45 07/03/23 04:05: WBC 19.6 H, RBC 3.58 L, Hgb 10.1 L, Hct 32.2 L, MCV 89.9, MCH 28.2, MCHC 31.4 L D, RDW Std Deviation 49.6 H, RDW Coeff of [place] 15.1 H, Plt Count 278, MPV 9.9, Immature Gran % (Auto) 0.600, Neut % (Auto) 86.8 H, Lymph % (Auto) 3.7 L, [place] % (Auto) 8.7, Eos % (Auto) 0.0, Baso % (Auto) 0.2, Absolute Neuts (auto) 17.0 H, Absolute Lymphs (auto) 0.72 L, Nucleated RBC % 0, Differential Comment SCANNED, Diff Path Review June, Sodium 142, Potassium 3.4 L, Chloride 109 H, Carbon Dioxide 25.0, Anion Gap 8, BUN 31 H, Creatinine 1.26 H, Estim Creat Clear Calc 28.48, Est GFR (MDRD) Af Amer 52 L, Est GFR (MDRD) Non-Af 43 L, BUN/Creatinine Ratio 24.6 H, Glucose 145 H, Calcium 8.0 L 07/03/23 06:45: Urine Color Yellow, Urine Clarity Clear, Urine pH 6.0, Ur Specific [place] 1.020, Urine Protein 100 H, Urine Glucose (UA) Normal, Urine Ketones 50 H, Urine Occult Blood 250 H, Urine Nitrite Negative, Urine Bilirubin Negative, Urine Urobilinogen Normal, Ur Leukocyte Esterase 25 H, Urine RBC 25-50 SEEN, Urine WBC 0-5 SEEN, Ur Squamous Epith Cells 0-5 SEEN, Urine Bacteria 1+, Urine Mucus 0 SEEN ABG Data ABG results: ABG 07/02/23 07/02/23 07/03/23 11:01 12:27 01:47 Specimen Type ART ART ART Sample Site Not entered Art Line R Brach pH 7.33 L 7.32 L 7.45 Bicarbonate Actual 19.9 L 19.3 L 25.4 Total CO2 21 20 27 Base Excess -6 L -7 L 1 O2 Saturation 61 L 98 90 L O2 % 21.0 100.0 75.0 ABG pCO2 37.7 37.8 36.8 ABG pO2 34 L* 106 H 56 L Respiration Rate 12 O2 Delivery Device Room Air BiPAP HFNC Vent Mode Not entered avaps Not entered Tidal Volume 400.0 POC PEEP 10 Crit Call To/Read Back Yes Blood Gas Notified Whom hreb Blood Gas Notified Time 11:06:02 Radiography Diagnostic Testing: Radiology Impression Chest X-Ray 07/02/23 11:21 IMPRESSION: Small bilateral pleural effusions with overlying atelectasis. Electronically Signed: Arturo Mast MD at 13:34 EDT , Echocardiogram 07/02/23 11:21 Interpretation Summary The study was technically difficult. Mild concentric left ventricular hypertrophy. The left ventricular ejection fraction is 60 %. Stage 2 diastolic dysfunction. Moderate (2+) tricuspid valve insufficiency. Right ventricular systolic pressure estimated to be 49 mmHg. Mild (1+) aortic valve insufficiency. The inferior vena cava is dilated Ordering Physician: Reji Saravia Referring Physician: Kenji Herbert Performed By: Aixa Lozano, BRETT, RVT Chest CT 07/02/23 14:38 IMPRESSION: Bilateral mild pleural effusions with basilar consolidation/atelectasis. Left upper lobe calcified granuloma. Patchy groundglass densities, right more than left. Mild cardiomegaly. Electronically Signed: Ezio Mancera DO at 18:35 EDT , Physical Exam Narrative General: Alert though sleepy, Oriented x3, Cooperative, No apparent distress HEENT: Atraumatic, PERRLA, EOMI, Normocephalic Oral: Moist Mucosa Neck: Supple, No JVD Lungs: Diminished, Normal air movement, No rhonchi, No wheeze, No rales Cardiovascular: Regular rate, Regular Rhythm, Normal S1, Normal S2, No murmurs Abdomen: Soft, Non Tender, Non-Distended, No Hepato-splenomegaly Extremities: No edema, Capillary Refill Less than 3 Seconds Skin: No rashes, No breakdown Musculoskeletal: Tenderness to palpation of left hip Neurological: No focal neurological deficits, Motor Exam 5/5 strength throughout other than left lower extremity due to fracture, Sensory exam intact to light touch and pain Psych/Mental Status: Flat Assessment & Plan Assessment/Plan (1) Closed fracture of left hip: PLAN: Plan 1. Left hip fracture ? Admit under inpatient status to [facility]. Orthopedics consulted. Preoperative evaluation as noted below. Notably is on Eliquis and Plavix, last doses of both on morning of 06/29, both now being held. Pain control with scheduled Tylenol, oxycodone as needed and IV Dilaudid as needed. PT/OT/case management consulted. 07/01/2023: Plan for operative repair tomorrow, per cardiology she is a moderate risk 07/02/2023: Plan for operative repair today, can resume Eliquis tomorrow if okay with orthopedic surgery 07/03/2023: Surgery was canceled secondary due to hypoxia and anesthesia did not want to intubate they were afraid that this would cause circulatory collapse despite having normal pressures. Continues to have hypoxia without any obvious cause, CT of the chest did not show significant issues to cause such a degree of hypoxia and a COVID test this morning was normal. Renal function is a bit better so we will discuss with the waterworks employee about proceeding with a CT of the chest to rule out PE and then we do need to decide whether she is a candidate to stay here or if she needs to go to a higher level of care in order to not delay repair of her fracture. May need to discuss the possibility of intubating her in the ICU so she can go down to the OR already intubated so that becomes not an issue for anesthesia 2. Preoperative evaluation ? Cardiology consulted for assistance with preop evaluation. Complex cardiac hi story. Last echo in 03/2022 with EF 25%, severe global LV systolic dysfunction, global longitudinal strain abnormal, mild concentric LV hypertrophy. This was done when patient had NSTEMI at that time, required transfer to [facility] for further management. Currently on Eliquis for atrial flutter and Plavix for CAD with history of stenting, both being held. 07/03/2023: Echo yesterday with an EF of 60% and stage II diastolic dysfunction 3. Paroxysmal atrial flutter on Eliquis ? Continue home amiodarone and Coreg, holding home Eliquis. 4. History of CAD with stenting ? Holding home Plavix, continue home statin. Appreciate cardiology recommendations as noted above. 5. History of CKD stage IIIb ? Creatinine 1.14 on admit, at baseline. 07/01/2023: Slight rise in her creatinine, will start her on gentle IV fluids 07/02/2023: Renal function has continued to climb to 1.76 today, will discontinue her losartan and continue with IV fluids 07/03/2023: Will discontinue IV fluids today, renal function has improved down to 1.26 Chronic medical conditions: ? Hypothyroidism: Continue Synthroid. ? Hypertension: Continue home amlodipine and Coreg, holding home losartan. ? Hyperlipidemia: Continue home statin and Zetia. ? Mood disorder: Stable. Continue home sertraline and melatonin. ? GERD: Continue home PPI. DVT: SCDs Charges/Coding Visit Charges Inpatient E&M: 60107 Subs Hosp L2
[2023-07-03] MEDS: Calcium Carbonate 500 MG Tablet PO (09:05)
[2023-07-03] MEDS: Pantoprazole Sodium 20 MG Tablet PO (09:05)
[2023-07-03] MEDS: Sertraline 50 MG Tablet PO (09:05)
[2023-07-03] MEDS: Pravastatin 80 MG Tablet PO (09:05)
[2023-07-03] MEDS: Ezetimibe 10 MG Tablet PO (09:06)
[2023-07-03] MEDS: Amiodarone 200 MG Tablet PO (09:06)
[2023-07-03] MEDS: Aspirin E.C. 81 MG Tablet PO (09:06)
--- NOTE | 2023-07-03 10:05 | PN.ORTHO_ITS ---
Subjective Subjective Patient spent previous day and last night in the ICU. Air Pollution Control Engineer was consulted over telemedicine. Managed by medicine service overnight. Patient continues to require Arbo with significant oxygen requirements. She reported that if she is removed from oxygen for even a short period of time her oxygen saturations dropped to 45% chest CT was obtained yesterday. Unable to do CTA secondary to renal function. Unable to do VQ scan in relation to chest x-ray findings. Patient's 2 sons and [id number] are at bedside. Patient has been agitated and uncomfortable overnight. Concern for delirium UA was sent for further evaluation. Objective Data Objective Data Vital Signs: Vital Signs Temp Pulse Resp BP Pulse Ox O2 Del Method O2 Flow Rate 98 F 71 21 H 124/55 H 96 Airvo 60 07/03/23 08:00 07/03/23 09:00 07/03/23 09:00 07/03/23 09:00 07/03/23 09:00 07/03/23 09:00 07/03/23 09:00 FiO2 90 07/03/23 09:00 Oxygen Flow Rate (L/min) 60 Oxygen Delivery Method Airvo Weight: 128 lb 8.472 oz Body Mass Index (BMI) 22.7 Intake & Output: Intake and Output for Last 24 Hours 07/01/23 07/02/23 07/03/23 23:59 23:59 23:59 Intake Total 1300 / 1300 1200 / 1200 1290.34 / 1290.34 Output Total 500 / 500 1300 / 2250 1550 / 1550 Balance 800 / 800 -100 / -1050 -259.66 / -259.66 Lab / Micro Data Attestation: I reviewed the patient's lab results. 07/03/23 04:05 07/03/23 04:05 Labs: Laboratory Results - last 24 hr 07/03/23 04:05: WBC 19.6 H, RBC 3.58 L, Hgb 10.1 L, Hct 32.2 L, MCV 89.9, MCH 28.2, MCHC 31.4 L D, RDW Std Deviation 49.6 H, RDW Coeff of [place] 15.1 H, Plt Count 278, MPV 9.9, Immature Gran % (Auto) 0.600, Neut % (Auto) 86.8 H, Lymph % (Auto) 3.7 L, [place] % (Auto) 8.7, Eos % (Auto) 0.0, Baso % (Auto) 0.2, Absolute Neuts (auto) 17.0 H, Absolute Lymphs (auto) 0.72 L, Nucleated RBC % 0, Differential Comment SCANNED, Diff Path Review June, Sodium 142, Potassium 3.4 L, Chloride 109 H, Carbon Dioxide 25.0, Anion Gap 8, BUN 31 H, Creatinine 1.26 H, Estim Creat Clear Calc 28.48, Est GFR (MDRD) Af Amer 52 L, Est GFR (MDRD) Non-Af 43 L, BUN/Creatinine Ratio 24.6 H, Glucose 145 H, Calcium 8.0 L 07/03/23 06:45: Urine Color Yellow, Urine Clarity Clear, Urine pH 6.0, Ur Specific [place] 1.020, Urine Protein 100 H, Urine Glucose (UA) Normal, Urine Ketones 50 H, Urine Occult Blood 250 H, Urine Nitrite Negative, Urine Bilirubin Negative, Urine Urobilinogen Normal, Ur Leukocyte Esterase 25 H, Urine RBC 25-50 SEEN, Urine WBC 0-5 SEEN, Ur Squamous Epith Cells 0-5 SEEN, Urine Bacteria 1+, Urine Mucus 0 SEEN Micro: Microbiology 07/03/23 08:27 Mucosa - Nasopharyngeal Coronavirus COVID-19 PCR - Final ABG Data ABG results: ABG 07/02/23 07/02/23 07/03/23 11:01 12:27 01:47 Specimen Type ART ART ART Sample Site Not entered Art Line R Brach pH 7.33 L 7.32 L 7.45 Bicarbonate Actual 19.9 L 19.3 L 25.4 Total CO2 21 20 27 Base Excess -6 L -7 L 1 O2 Saturation 61 L 98 90 L O2 % 21.0 100.0 75.0 ABG pCO2 37.7 37.8 36.8 ABG pO2 34 L* 106 H 56 L Respiration Rate 12 O2 Delivery Device Room Air BiPAP HFNC Vent Mode Not entered avaps Not entered Tidal Volume 400.0 POC PEEP 10 Crit Call To/Read Back Yes Blood Gas Notified Whom [facility] Blood Gas Notified Time 11:06:02 Interpretation: ABG was reviewed however, my surgical subspecialty precludes me from interpreting the ABG. Radiography Diagnostic Testing: Radiology Impression Chest X-Ray 07/02/23 11:21 IMPRESSION: Small bilateral pleural effusions with overlying atelectasis. Electronically Signed: Arturo Mast MD at 13:34 EDT , Echocardiogram 07/02/23 11:21 Interpretation Summary The study was technically difficult. Mild concentric left ventricular hypertrophy. The left ventricular ejection fraction is 60 %. Stage 2 diastolic dysfunction. Moderate (2+) tricuspid valve insufficiency. Right ventricular systolic pressure estimated to be 49 mmHg. Mild (1+) aortic valve insufficiency. The inferior vena cava is dilated Ordering Physician: Reji Saravia Referring Physician: Kenji Herbert Performed By: Aixa Lozano, RDCS, RVT Chest CT 07/02/23 14:38 IMPRESSION: Bilateral mild pleural effusions with basilar consolidation/atelectasis. Left upper lobe calcified granuloma. Patchy groundglass densities, right more than left. Mild cardiomegaly. Electronically Signed: Ezio Mancera DO at 18:35 EDT , Physical Exam Narrative Patient delirious and agitated. Laying awkward in bed with legs draped over side. Uncomfortable. Assessment & Plan Assessment/Plan (1) Hypoxia: PLAN: See below (2) Left ventricular systolic dysfunction (LVSD) without heart failure: (3) Coronary artery disease: (4) Closed fracture of left hip: PLAN: I spent considerable amount of time today working on coordination of care for this patient. I spoke to the anesthesiologist and the onsite hospitalist. Expect further communication throughout the day. Also spent considerable amount of time at the bedside with the family. Patient continues to have significant pulmonary dysfunction hypoxia. I do feel her hip fracture plays significant role. I have considerable concerns for this patient in regards to delays in care however, we need to be able to make sure we are making appropriate decisions. I explained to the family that surgery itself could result in immediate demise however, delayed care based on inability to ambulate and continued need for pain medications which may suppress her ability to breathe c an also result in detrimental outcomes. Ultimately, after discussions with other physicians onsite on her team I do feel it is imperative that we coordinate her care and determine how best to move forward in a timely manner. Further delays in fixation of her hip fracture going to add to difficulty in proceeding with pulmonary toilet, continue need for narcotic pain medications further complicating the ability to treat the patient's hypoxic state however, proceeding immediately to the operating room also places the patient at significant risk. We did discuss the potential that the patient and family may need to consider transfer to a larger care center if we are not able to determine appropriate solution at our local [facility] facility. At this time, we are continuing to medically optimize the patient and determine a reasonable solution locally. Did explain the family that transfers can also result in delay of care if beds are not available. Family did demonstrate an understanding of our conversation today which was lengthy. They also seem to demonstrate understanding of the complexity of the situation. I will remain in contact with the medicine service and anesthesia throughout the day. 55 minutes were spent on this encounter today. SHARI Neves[facility] Office:
--- NOTE | 2023-07-03 10:08 | CT_ITS ---
STUDY: CTA CHEST REASON FOR EXAM: Female, 82 years old. R/O PE RADIATION DOSAGE (If Supplied By Facility): CTDIvol = ( 13.84 ) mGy, DLP = ( 437.27 ) mGycm TECHNIQUE: The examination was performed with the intravenous administration of IV 100mL Isovue-370. Post-processing of the angiographic images was performed, with multiplanar reformation and 3D reconstruction. Individualized dose optimization techniques were used for this CT. COMPARISON: July 02, 2023 FINDINGS: Normal enhancement of the main pulmonary artery and right and left pulmonary arteries. Normal enhancement of the bilateral peripheral pulmonary arteries. There is no demonstrated pulmonary embolism. Normal thoracic aorta and visualized great vessels. There is no demonstrated aortic dissection. There are calcifications of the coronary arteries. There is cardiomegaly. Normal mediastinum. Normal hilar regions. Normal visualized trachea and bronchi. The lungs are well expanded. There are moderate diffuse interstitial and groundglass increased opacities of the lungs. There is lower lung airspace consolidation. There are small bilateral pleural effusions. Normal chest wall structures. There are degenerative changes of thoracic spine. Normal visualized upper abdomen. CT/CTA Chest W/WO Contrast IMPRESSION: CTA chest examination, without a demonstrated pulmonary embolism or arterial dissection. Bilateral edema or pneumonia and pleural effusions. Electronically Signed: Ervin Ramirez MD at 12:50 EDT ,
--- NOTE | 2023-07-03 10:22 | PCM.PN.CARD ---
Subjective Subjective Events noted. Became hypoxic on the floor. Transferred to the ICU yesterday. Still requiring high flow oxygen. Echocardiogram with normal left ventricular systolic function. Stage II diastolic dysfunction. Moderate tricuspid valve regurgitation with moderately elevated pulmonary artery pressures. Objective Data Vital Signs: Vital Signs Temp Pulse Resp BP Pulse Ox O2 Del Method O2 Flow Rate 98.6 F 70 20 H 145/61 H 92 Airvo 60 07/03/23 10:00 07/03/23 10:00 07/03/23 10:00 07/03/23 10:00 07/03/23 10:00 07/03/23 10:00 07/03/23 10:00 FiO2 90 07/03/23 10:00 Oxygen Flow Rate (L/min) 60 Oxygen Delivery Method Airvo Weight: 128 lb 8.472 oz Body Mass Index (BMI) 22.7 Intake & Output: Intake and Output for Last 24 Hours 07/01/23 07/02/23 07/03/23 23:59 23:59 23:59 Intake Total 1300 / 1300 1200 / 1200 1290.34 / 1290.34 Output Total 500 / 500 1300 / 2250 1550 / 1550 Balance 800 / 800 -100 / -1050 -259.66 / -259.66 Lab / Micro Data 07/03/23 04:05 07/03/23 04:05 Labs: Laboratory Results - last 24 hr 07/03/23 04:05: WBC 19.6 H, RBC 3.58 L, Hgb 10.1 L, Hct 32.2 L, MCV 89.9, MCH 28.2, MCHC 31.4 L D, RDW Std Deviation 49.6 H, RDW Coeff of [place] 15.1 H, Plt Count 278, MPV 9.9, Immature Gran % (Auto) 0.600, Neut % (Auto) 86.8 H, Lymph % (Auto) 3.7 L, [place] % (Auto) 8.7, Eos % (Auto) 0.0, Baso % (Auto) 0.2, Absolute Neuts (auto) 17.0 H, Absolute Lymphs (auto) 0.72 L, Nucleated RBC % 0, Differential Comment SCANNED, Diff Path Review June, Sodium 142, Potassium 3.4 L, Chloride 109 H, Carbon Dioxide 25.0, Anion Gap 8, BUN 31 H, Creatinine 1.26 H, Estim Creat Clear Calc 28.48, Est GFR (MDRD) Af Amer 52 L, Est GFR (MDRD) Non-Af 43 L, BUN/Creatinine Ratio 24.6 H, Glucose 145 H, Calcium 8.0 L 07/03/23 06:45: Urine Color Yellow, Urine Clarity Clear, Urine pH 6.0, Ur Specific [place] 1.020, Urine Protein 100 H, Urine Glucose (UA) Normal, Urine Ketones 50 H, Urine Occult Blood 250 H, Urine Nitrite Negative, Urine Bilirubin Negative, Urine Urobilinogen Normal, Ur Leukocyte Esterase 25 H, Urine RBC 25-50 SEEN, Urine WBC 0-5 SEEN, Ur Squamous Epith Cells 0-5 SEEN, Urine Bacteria 1+, Urine Mucus 0 SEEN Micro: Microbiology 07/03/23 08:27 Mucosa - Nasopharyngeal Coronavirus COVID-19 PCR - Final ABG Data ABG results: ABG 07/02/23 07/02/23 07/03/23 11:01 12:27 01:47 Specimen Type ART ART ART Sample Site Not entered Art Line R Brach pH 7.33 L 7.32 L 7.45 Bicarbonate Actual 19.9 L 19.3 L 25.4 Total CO2 21 20 27 Base Excess -6 L -7 L 1 O2 Saturation 61 L 98 90 L O2 % 21.0 100.0 75.0 ABG pCO2 37.7 37.8 36.8 ABG pO2 34 L* 106 H 56 L Respiration Rate 12 O2 Delivery Device Room Air BiPAP HFNC Vent Mode Not entered avaps Not entered Tidal Volume 400.0 POC PEEP 10 Crit Call To/Read Back Yes Blood Gas Notified Whom herb Blood Gas Notified Time 11:06:02 Cardiology Labs/Tests 07/02/23 11:01: pH 7.33 L, Bicarbonate Actual 19.9 L, Base Excess -6 L, O2 Saturation 61 L, ABG pCO2 37.7, ABG pO2 34 L* 07/02/23 12:27: pH 7.32 L, Bicarbonate Actual 19.3 L, Base Excess -7 L, O2 Saturation 98, ABG pCO2 37.8, ABG pO2 106 H 07/03/23 01:47: pH 7.45, Bicarbonate Actual 25.4, Base Excess 1, O2 Saturation 90 L, ABG pCO2 36.8, ABG pO2 56 L 07/03/23 04:05: WBC 19.6 H, RBC 3.58 L, Hgb 10.1 L, Hct 32.2 L, MCV 89.9, MCH 28.2, MCHC 31.4 L D, Plt Count 278, MPV 9.9, Immature Gran % (Auto) 0.600, Neut % (Auto) 86.8 H, Lymph % (Auto) 3.7 L, [place] % (Auto) 8.7, Eos % (Auto) 0.0, Baso % (Auto) 0.2, Absolute Neuts (auto) 17.0 H, Nucleated RBC % 0, Sodium 142, Potassium 3.4 L, Chloride 109 H, Carbon Dioxide 25.0, Anion Gap 8, BUN 31 H, Creatinine 1.26 H, Est GFR (MDRD) Af Amer 52 L, Est GFR (MDRD) Non-Af 43 L, BUN/Creatinine Ratio 24.6 H, Glucose 145 H, Calcium 8.0 L 07/03/23 06:45: Urine Color Yellow, Urine Clarity Clear, Urine pH 6.0, Ur Specific [place] 1.020, Urine Protein 100 H, Urine Glucose (UA) Normal, Urine Ketones 50 H, Urine Occult Blood 250 H, Urine Nitrite Negative, Urine Bilirubin Negative, Urine Urobilinogen Normal, Ur Leukocyte Esterase 25 H, Urine RBC 25-50 SEEN, Urine WBC 0-5 SEEN Rhythm: EKG: ECHO: Stress Test: Cardiac Cath: PCI: CT Surgery: Holter monitor: EPS: PPM: CXR: Chest CT Scan: Radiography Diagnostic Testing: Radiology Impression Chest X-Ray 07/02/23 11:21 IMPRESSION: Small bilateral pleural effusions with overlying atelectasis. Electronically Signed: Arturo Mast MD at 13:34 EDT , Echocardiogram 07/02/23 11:21 Interpretation Summary The study was technically difficult. Mild concentric left ventricular hypertrophy. The left ventricular ejection fraction is 60 %. Stage 2 diastolic dysfunction. Moderate (2+) tricuspid valve insufficiency. Right ventricular systolic pressure estimated to be 49 mmHg. Mild (1+) aortic valve insufficiency. The inferior vena cava is dilated Ordering Physician: Reji Saravia Referring Physician: Kenji Herbert Performed By: Aixa Lozano, JULIACS, RVT Chest CT 07/02/23 14:38 IMPRESSION: Bilateral mild pleural effusions with basilar consolidation/atelectasis. Left upper lobe calcified granuloma. Patchy groundglass densities, right more than left. Mild cardiomegaly. Electronically Signed: Ezio Mancera DO at 18:35 EDT Reading Location ID and State: [facility] / [place] Tel [phone], Service support , Physical Exam Narrative Lying flat in the bed. No apparent distress. Heart sounds 1 and 2 are noted. 2/6 systolic murmur at base. Chest decreased breath sounds at bilateral bases. No ankle edema. Assessment & Plan Assessment/Plan (1) Hypoxia: PLAN: Normal LV systolic function. Grade 2 diastolic dysfunction. Patient does not appear overtly fluid volume overloaded. CT chest findings noted. In view of the patient's history of fracture of femur, consider workup for PE. Check D-dimer. Consider chest CTA. Follow as per critical care. (2) Paroxysmal atrial flutter: PLAN: On amiodarone for maintaining sinus rhythm. Apixaban being held in anticipation of hip surgery. (3) Coronary artery disease: PLAN: Continue aspirin. Beta-blockers. Amlodipine. (4) CKD (chronic kidney disease): PLAN: Creatinine josefina transiently with introduction of losartan. Agree with discontinuing losartan. Monitor. (5) Grade II diastolic dysfunction: PLAN: Check BNP. (6) Tricuspid valve regurgitation:
[2023-07-03] MEDS: dexMEDEtomidine 400 MCG in 0.9% Normal Saline (100mL Bag) 96 ML 17.5 MCG CONT INF (10:51)
[2023-07-03 11:15] LABS: D-Dimer Quantitative (DVT/PE) 3.25 FEU/ug/m (0.27-0.49)
--- NOTE | 2023-07-03 11:32 | PN.CC_ITS ---
Objective Data Objective Data Vital Signs: Vital Signs Last response Temperature 37.0 C 07/03/23 10:00 Temperature Source Temporal 07/03/23 10:00 Pulse Rate 70 07/03/23 10:00 Respiratory Rate 20 H 07/03/23 10:00 Respiratory Effort Normal, Non-Labored 07/03/23 08:00 Respiratory Depth Normal 07/03/23 08:00 Respiratory Pattern Tachypnea 07/03/23 08:00 Blood Pressure 145/61 H 07/03/23 10:00 Blood Pressure Mean 89 07/03/23 10:00 Blood Pressure Source Monitor 07/03/23 10:00 Blood Pressure Position Semi-Fowlers 07/03/23 10:00 Blood Pressure Location Right Arm 07/03/23 09:00 Pulse Ox 92 07/03/23 10:00 Oxygen Delivery Method Airvo 07/03/23 10:00 Oxygen Flow Rate (L/min) 60 07/03/23 10:00 Fraction of Inspired Oxygen (FIO2) 90 07/03/23 10:00 I&O: I&O Last 24 Hours 07/02/23 07/02/23 07/03/23 11:59 23:59 11:59 Intake Total 200 / 1200 1000 / 1200 1305.58 / 1305.58 Output Total 600 / 2250 700 / 2250 1550 / 1550 Balance -400 / -1050 300 / -1050 -244.42 / -244.42 I&O: Total Stay 06/30/23 13:44 thru 07/03/23 10:51 Intake Total 4805.58 Output Total 4350 Balance 455.58 Current Meds Ordered / Administered: Current meds ordered / Administered Generic Name Dose Route Start Last Admin Trade Name Freq PRN Reason Stop Dose Admin Acetaminophen 1,000 mg 06/30/23 22:00 07/03/23 06:12 Acetaminophen 500 Mg Tablet PO Not Given Q8 ELIZABETH Amiodarone HCl 200 mg 07/01/23 10:00 07/03/23 09:06 Amiodarone 200 Mg Tablet PO 200 mg DAILY ELIZABETH Administration Amlodipine Besylate 5 mg 07/01/23 10:00 07/02/23 12:48 Amlodipine 5 Mg Tablet PO Not Given DAILY [facility] Protocol Aspirin 81 mg 07/01/23 10:00 07/03/23 09:06 Aspirin E.C. 81 Mg Tablet PO 81 mg DAILY ELIZABETH Administration Calcium Carbonate 500 mg 06/30/23 22:00 07/03/23 09:05 Calcium Carbonate 500 Mg Tablet PO 500 mg BID [facility] Administration Carvedilol 6.25 mg 06/30/23 22:00 07/02/23 09:10 Carvedilol 6.25 Mg Tablet PO 6.25 mg BID ELIZABETH Administration Protocol Cyclobenzaprine HCl 5 mg 07/01/23 15:26 07/01/23 16:42 Cyclobenzaprine Hcl 5 Mg Tablet PO 5 mg TID PRN Administration MUSCLE SPASM Ezetimibe 10 mg 07/01/23 10:00 07/03/23 09:06 Ezetimibe 10 Mg Tablet PO 10 mg DAILY [facility] Administration Hydromorphone HCl 0.5 mg 06/30/23 21:41 07/02/23 20:49 Hydromorphone 0.5 Mg/0.5 Ml Syringe IV 0.5 mg Q3H PRN PRN Administration Pain Score 6-10 Sodium Chloride 250 mls @ 15 mls/hr 06/30/23 21:45 IV .[id number] PRN Saline Flush Dexmedetomidine HCl 400 mcg/ 100 mls @ 7.288 mls/hr 07/03/23 06:00 07/03/23 10:51 Sodium Chloride CONT INF 1.2 mcg/kg/hr .[id number] ELIZABETH 17.5 mls/hr Administration Protocol 0.5 MCG/KG/HR Levothyroxine Sodium 112 mcg 07/01/23 06:00 07/03/23 06:12 Levothyroxine 112 Mcg Tablet PO Not Given DAILY@0600 [facility] Melatonin 10 mg 06/30/23 22:00 07/02/23 20:48 Melatonin 10 Mg Tablet PO 10 mg QHS [facility] Administration Neomycin/Polymyxin/Dexamethasone 1 drp 06/30/23 22:00 07/03/23 06:12 Neomycin/Polymyxin/Dexameth 5ml Opth.Btl OPHTHALMIC Not Given TID [facility] Nutritional Formula (Lactose Free) 120 ml 07/03/23 12:00 Ensure Plus High Protein 120 Ml Liquid PO TIDCM [facility] Ondansetron HCl 4 mg 06/30/23 21:41 06/30/23 22:30 Ondansetron 4 Mg/2 Ml Vial IV 4 mg Q8H PRN PRN Administration NAUSEA/VOMITING Oxycodone HCl 5 mg 06/30/23 21:41 07/01/23 21:35 Oxycodone 5 Mg Tablet PO 5 mg Q4H PRN PRN Administration Pain Score 4-10 Pantoprazole Sodium 20 mg 07/01/23 10:00 07/03/23 09:05 Pantoprazole Sodium 20 Mg Tablet PO 20 mg DAILY ELIZABETH Administration Pravastatin Sodium 80 mg 07/01/23 10:00 07/03/23 09:05 Pravastatin 80 Mg Tablet PO 80 mg DAILY ELIZABETH Administration Sertraline HCl 50 mg 07/01/23 10:00 07/03/23 09:05 Sertraline 50 Mg Tablet PO 50 mg DAILY ELIZABETH Administration Sodium Chloride 10 - 40 ml 06/30/23 21:45 07/03/23 06:25 0.9% Saline Lock 10 Ml Syringe IV 30 ml UD PRN Administration SALINE FLUSH Lab / Micro Data 07/03/23 04:05 07/03/23 04:05 Labs: Laboratory Results - last 24 hr 07/03/23 04:05: WBC 19.6 H, RBC 3.58 L, Hgb 10.1 L, Hct 32.2 L, MCV 89.9, MCH 28.2, MCHC 31.4 L D, RDW Std Deviation 49.6 H, RDW Coeff of Polo 15.1 H, Plt Count 278, MPV 9.9, Immature Gran % (Auto) 0.600, Neut % (Auto) 86.8 H, Lymph % (Auto) 3.7 L, Calloway % (Auto) 8.7, Eos % (Auto) 0.0, Baso % (Auto) 0.2, Absolute Neuts (auto) 17.0 H, Absolute Lymphs (auto) 0.72 L, Nucleated RBC % 0, Differential Comment SCANNED, Diff Path Review June, Sodium 142, Potassium 3.4 L, Chloride 109 H, Carbon Dioxide 25.0, Anion Gap 8, BUN 31 H, Creatinine 1.26 H, Estim Creat Clear Calc 28.48, Est GFR (MDRD) Af Amer 52 L, Est GFR (MDRD) Non-Af 43 L, BUN/Creatinine Ratio 24.6 H, Glucose 145 H, Calcium 8.0 L 07/03/23 06:45: Urine Color Yellow, Urine Clarity Clear, Urine pH 6.0, Ur Specific Foss 1.020, Urine Protein 100 H, Urine Glucose (UA) Normal, Urine Ketones 50 H, Urine Occult Blood 250 H, Urine Nitrite Negative, Urine Bilirubin Negative, Urine Urobilinogen Normal, Ur Leukocyte Esterase 25 H, Urine RBC 25-50 SEEN, Urine WBC 0-5 SEEN, Ur Squamous Epith Cells 0-5 SEEN, Urine Bacteria 1+, Urine Mucus 0 SEEN 07/03/23 10:45: D-Dimer Quant (PE/DVT) 3.25 H* Micro: Microbiology 07/03/23 08:27 Mucosa - Nasopharyngeal Coronavirus COVID-19 PCR - Final ABG Data ABG results: ABG 07/02/23 07/03/23 12:27 01:47 Specimen Type ART ART Sample Site Art Line R Brach pH 7.32 L 7.45 Bicarbonate Actual 19.3 L 25.4 Total CO2 20 27 Base Excess -7 L 1 O2 Saturation 98 90 L O2 % 100.0 75.0 ABG pCO2 37.8 36.8 ABG pO2 106 H 56 L Respiration Rate 12 O2 Delivery Device BiPAP HFNC Vent Mode avaps Not entered Tidal Volume 400.0 POC PEEP 10 Imaging Radiology Impression Chest X-Ray 07/02/23 11:21 IMPRESSION: Small bilateral pleural effusions with overlying atelectasis. Electronically Signed: Arturo Mast MD at 13:34 EDT , Echocardiogram 07/02/23 11:21 Interpretation Summary The study was technically difficult. Mild concentric left ventricular hypertrophy. The left ventricular ejection fraction is 60 %. Stage 2 diastolic dysfunction. Moderate (2+) tricuspid valve insufficiency. Right ventricular systolic pressure estimated to be 49 mmHg. Mild (1+) aortic valve insufficiency. The inferior vena cava is dilated Ordering Physician: Reji Saravia Referring Physician: Kenji Herbert Performed By: Aixa Lozano, RDCS, RVT Chest CT 07/02/23 14:38 IMPRESSION: Bilateral mild pleural effusions with basilar consolidation/atelectasis. Left upper lobe calcified granuloma. Patchy groundglass densities, right more than left. Mild cardiomegaly. Electronically Signed: Ezio Mancera DO at 18:35 EDT , Assessment and Plan . Assessment and plan: Critical Care Time: The entirety of this encounter was done via Telemedicine Subjective Subjective Telemedicine Pulmonary/ICU Progress Note Brief summary: 82Y F PMH AF on Eliquis, CAD, CHF (EF 25-30% on previous TTE) who was admitted a few days ago sp fall and found to have hip fracture. Pt was admitted and cardiol dakota was consulted for cardiac clearance. Operative repair of fracture delayed until today given patient's Eliquis use but when patient went to OR anesthesia noted pt was noted to have poor sats on pulse ox. ABG checked which was 7.33/pCO2 37/pO2 34/HCO3 19. Pt was transferred to the ICU before any attempted surgery for further optimization and started on NIV. Pulmonary/critical care consulted for further assessment. On my assessment patient is on NIV/AVAPS FiO2 75%. BPs soft with MAPs 65 after receiving pain medication earlier. She has Kay but not much urine output noted at this time. Pt is lethargic but otherwise awake/alert. No reported fevers/chills/cough/sputum/chest pain/N/V. Sub: Very restless overnight with intermittent delirium type agitation. Alternating HHFNC 60L/90% (sats low 90s) & NIV. Afebrile. Good UOP. Precedex @ 1.2 12 400 26/10 EPAP6 70% PE: General: Well developed, elderly female, +NIV HEENT: anicteric Sclera; nl nose; supple neck, no masses Cardiovascular: Regular Rate and Rhythm; No murmurs, rubs, gallops; no displaced PMI Respiratory: diminished with bibasilar crackles, wheezes, or rhonchi Abdominal: Non-tender; Non distended; hypoBS x 4; No Hepatosplenomegaly Extremities: Warm, well perfused; no overt abnl beyond Lt sided ecchymosis and mild ext rotation of LLE, + palp distal pulses, No clubbing, cyanosis; capillary refill < 2 sec Neurological: lethargic/sedated, no gross deficits A/P: #Acute hypoxemic hypercapnic respiratory failure #HFpEF, acute exacerbation #Hip fracture #Sepsis #?PNA #?UTI #NANCY on CKD #Hx AFib/flutter on home Eliquis #Acute encephalopathy with delirium #SP fall #CAD #Hypothyroidism -Contributing factors included CHF/pHTN +/- PNA/acute PE (less likely given home Eliquis); CT chest with findings c/w atypical PNA vs edema; pending CTA chest today given improved renal function --> currently on NIV/AVAPS alternating with HHFNC with improved acidosis but hypoxemia & overall resp status not significantly improved; complicated by acute pain needs a/w fracture but risk for respiratory compromise and not giving pain meds increases risks for on-going delirium --> after multidisciplinary discussion with hospitalist/orthopedics the decision was made to proceed with intubation today and possible operative repair -TTE noted with preserved EF but grade II DD & likely notable pHTN; cardiology on board; holding losartan/carvedilol/amlo, sp Lasix x1 yesterday with good response --> will start Lasix BID, cont strict I/Os, monitor renal function/lytes -Rising WBCs but afebrile and no obvious source of infection; ?stress-related; cont monitoring but low threshold to start emp Abx --> started emp vanc/cefepime/Flagyl, F/U Cx -Cont amio; monitor HR, currently NSR, on Eliquis at home but currently on hold -Ortho on board for operative repair once pt deemed stable -Cont home levothyroxine NPO PPI Guarded prognosis; detailed update given to patient's 2 sons who are at bedside who agreed with plan Critical Care Time: 50 min The entirety of this encounter was done via Telemedicine. Consent obtained.
--- NOTE | 2023-07-03 12:35 | RAD_ITS ---
STUDY: X-RAY CHEST REASON FOR EXAM: Female, 82 years old. To confirm ET placement -- Call wet read to MD TECHNIQUE: Single AP portable view of the chest. COMPARISON: July 02, 2023 FINDINGS: Endotracheal tube, 2 cm above the pato. Feeding tube extends to the stomach in the left upper quadrant of the abdomen. There is mild consolidation of the lungs and small effusions. There is calcified left upper lobe granuloma. Normal size heart. Normal mediastinum and dylan. Normal visualized pulmonary arteries. There is atherosclerotic calcification of the aortic arch. Normal visualized thoracic spine. Normal visualized ribs, clavicles, and shoulders. There is no demonstrated abnormality of the visualized soft tissue structures of the upper abdomen. RAD/Chest 1 View (Portable) IMPRESSION: Endotracheal tube and feeding tube placement. Bilateral edema or infiltrates and small effusions. Electronically Signed: Ervin Ramirez MD at 15:19 EDT ,
--- NOTE | 2023-07-03 12:35 | RAD_ITS ---
STUDY: X-RAY - ABDOMEN REASON FOR EXAM: Female, 82 years old. Confirm OG placement -- Prior to admin of any med, TECHNIQUE: Single AP view of the abdomen . COMPARISON: None. FINDINGS: Feeding tube extends to the stomach in the left upper abdomen. There is an unremarkable bowel gas pattern. There is no demonstrated free abdominal air. There is contrast in the urinary collecting system. Normal soft tissue structures. Normal visualized osseous structures. RAD/Abdomen Single View (Portable) IMPRESSION: Feeding tube extends to the stomach. Electronically Signed: Ervin Ramirez MD at 15:01 EDT ,
[2023-07-03] MEDS: Propofol 10MG/Ml 1,000 MG/100 ML Bottle 3.5 MG CONT INF (13:25)
[2023-07-03] MEDS: fentaNYL drip 100 ML 2.5 MCG CONT INF (13:25)
[2023-07-03] MEDS: Cefepime HCl 1 GM in 0.9% Normal Saline (50mL MB+) 50 ML IV (13:47)
[2023-07-03] MEDS: Neomycin/Polymyxin/Dexameth 5ML OPTH.BTL 1 DRP OPHTHALMIC ×2 (13:50→21:10)
--- NOTE | 2023-07-03 13:54 | NURSING ---
1325- propofol and fentanyl drips initiated. Intubated 7.5 ETT, 23 at the lip. Positive color change and bilateral breath sounds noted.
[2023-07-03] MEDS: Vancomycin HCl 750 MG in 0.9% Normal Saline (250mL Bag) 250 ML 250 MG IV (14:24)
--- NOTE | 2023-07-03 14:40 | PCM.RX.CS ---
Consult Antibiotic Management Pharmacy has been consulted to manage selected antibiotic: Vancomycin Type of Intervention Type of Consult: New start Suspected Infection Suspected Infection: Other Labs Labs: Sodium 142 mmol/L (136-145) 07/03/23 04:05 Potassium 3.4 mmol/L (3.5-5.1) L 07/03/23 04:05 Chloride 109 mmol/L (98-107) H 07/03/23 04:05 Carbon Dioxide 25.0 mmol/L (21.0-32.0) 07/03/23 04:05 Anion Gap 8 (5-15) 07/03/23 04:05 BUN 31 mg/dL (7-18) H 07/03/23 04:05 Creatinine 1.26 mg/dL (0.55-1.02) H 07/03/23 04:05 Est GFR (MDRD) Af Amer 52 mL/min (>60) L 07/03/23 04:05 Est GFR (MDRD) Non-Af 43 mL/min (>60) L 07/03/23 04:05 BUN/Creatinine Ratio 24.6 RATIO (10-20) H 07/03/23 04:05 Glucose 145 mg/dL (74-106) H 07/03/23 04:05 Microbiology Microbiology: Microbiology 07/03/23 08:27 Mucosa - Nasopharyngeal Coronavirus COVID-19 PCR - Final Goal Trough Goal Trough: 15-20 mcg/mL Pharmacy Plan for Drug Dosing Pharmacy Plan for Drug Dosing: NEW START IV VANCOMYCIN Consulting Physician: Dr. Batista Indication: Infection R/O Goal Trough: 15-20 SrCr: 1.26 CrCl: 28 mL/min Comments: Patient had initial dose of 750mg ordered and administered 07/02 @1424 Vancomycin Dose: 500mg IV Q24hr to start 07/04/23 @1400 Pending Level: 07/05/23 @1330 Pharmacy Service will continue to monitor and adjust dosing as required.
[2023-07-03 15:33] LABS: CPK Total, Creatine Kinase 1021 U/L (26-192); Triglycerides 119 mg/dL
--- NOTE | 2023-07-03 15:37 | PCM.PN.BLA ---
Progress Note Intubation Indication: Worsening respiratory failure Consent was obtained from: Son/POA The patient was placed in the appropriate sniffing position. Preoxygenated sedation via BiPAP was provided for a minimum of 3 minutes. The patient had continuous cardiac as well as pulse oximetry monitoring during the procedure. Procedure sedation was provided by the administration of propofol and fentanyl. Direct laryngoscopy was then performed using a glide scope. A 7.5 mm endotracheal tube was visualized advancing between the cords to the level of 22 cm at the lip. The stylette was then removed and discarded. Tube placement was confirmed by fogging in the tube along with equal and bilateral breath sounds. Colorimetric change was visualized on the CO2 meter. The cuff was then inflated and the tube secured using a commercially available device. A good pulse oximetry waveform was seen on the monitor throughout the procedure. A portable chest x-ray has been ordered to confirm appropriate placement. The patient tolerated the procedure well. Procedures Hospitalists Procedures: 02337 Insert Emergency Airway
[2023-07-03 15:38] LABS: Base Excess 0 mmol/L (-2 to +2); Bicarbonate 20.3 mmol/L (22-26); Blood Gas Specimen Type ART; Mode AC; O2 Delivery Device Adult Vent; PEEP 8; PO2 101 mmHG (75-100); RR 24; SITE Art Line; SO2 99 % (95-99); Total Carbon Dioxide 21 mmol/L; pCO2 17.8 mmHg (35-45); pH 7.67 (7.35-7.45)
--- NOTE | 2023-07-03 15:40 | CPS ---
Critical blood gas results called to Dr Batista at 1537.
[2023-07-03] MEDS: metroNIDAZOLE 500 MG/100 ML BAG 100 MG IV ×2 (15:47→21:17)
--- NOTE | 2023-07-03 16:35 | NURSING ---
pt down to OR at this time
--- NOTE | 2023-07-03 16:36 | NURSING ---
Pt down to OR at this time. Propofol and fentanyl gtts shut off at this per Anesthesia request.
--- NOTE | 2023-07-03 16:50 | HIP_PTH ---
PATIENT: EVENS ORDOÑEZ LOC: ICU U#:[id number] AGE/SX: 82/F ROOM: ICU02 RE06/30/[address]: Dr. Anali Mcmillan MD : 1940 BED: 1 DIS: 07/06/2023 SPEC #: [id number] RECD: 07/04/23 08:45 STATUS: ISMAEL REQ #: [id number] NANCY: 07/03/23 16:[address]: Arturo Sanchez DEPT: SURGICAL PATHOLOGY RECD BY: Jillian Kee ENTERED: 07/04/23 09:05 SP TYPE: TOTAL HIP OTHR DR: MD Dr. Chapin Recio MD Dr. Alexander Mosteller, DO Dr. Cyril Ofori, MD Dr. Derek Brown, DO Dr. Edward Matheis, MD Dr. Gautam Baskaran, MD Dr. Yordanos Habtegebriel, MD Dr. Hemant Dand, MD Dr. Kimber Foust, MD Dr. Lamia Aljundi, MD Dr. Nana Yaa Koram, MD Dr. Nicholas F Kotsonis, MD Dr. Nicholas Spittle, DO Dr. Pritam Ghosh, MD Dr. Pavan Irukulla, MD Dr. Saad Farooqi, MD Dr. Vikram Anand, MD Dr. Victor Velasquez, MD Dr. William Haden, MD Tissues: Hip, NOS Procedures: Decalcification bone/plaque Surgery Specimen Level IV HEADER OPERATION: Hemiarthroplasty, hip anterior PRE-OP DIAGNOSIS: Closed fracture of left hip TISSUE SUBMITTED: Left femoral head MICROSCOPIC DIAGNOSIS Bone and tissue of left hip, total hip resection: Consistent with organizing fracture site. AM: 07/07/23 MICROSCOPIC DESCRIPTION Slides are reviewed. GROSS DESCRIPTION Received is one container labeled with the patient's name and designated femoral head and tissue. The specimen consists of a light- avila femoral head measuring 4.3 x 4.5 x 3.3 cm. The articular surface is unremarkable. The non-articular surface is hemorrhagic and irregular consistent with fracture sight. Also present in the specimen container are three irregular fragments of avila bone measuring in aggregate 8.0 x 4.0 x 3.0cm. Resection margin is irregular and hemorrhagic. Insurance Specialist sections are submitted in two cassettes after decalcification :1 - detached pieces of bone after decalcification, 2 - femoral head after decalcification. AM/mr 07/04/23 TC:5 CPT: 73524, 34009
--- NOTE | 2023-07-03 17:00 | RAD_ITS ---
STUDY: INTRAOPERATIVE FLUOROSCOPY TECHNIQUE: The examination was performed with referring physician in attendance. Under fluoroscopic observation, fluoroscopic images were obtained. Radiologist was not present for the study. Radiologist did not perform the procedure. This dictation is for documentation of the radiation dosage only. There is no interpretation of the images. TOTAL NUMBER OF IMAGES: 1 COMPARISON: None RADIATION DOSE: 0.77 mGy FLUOROSCOPY TIME: 6.7 seconds REASON FOR EXAM: FX Female, 82 years old. FINDINGS: Fracture ORIF. RAD/Hip Min 2 Views (Portable) IMPRESSION: Fluoroscopic assistance images were obtained. Dictation for documentation purposes only. Electronically Signed: Greg Heart MD at 18:43 EDT ,
[2023-07-03] MEDS: TRANEXAMIC ACID 2,000 MG, 0.9% Normal Saline (100mL Bag) 100 ML OPERA.SITE (17:36)
--- NOTE | 2023-07-03 17:58 | PCM.OPRPT ---
Report of Operation Date of Procedure: 07/03/23 Pre-Operative Diagnosis: Displaced left subcapital femoral neck fracture Post-Operative Diagnosis: Displaced left subcapital femoral neck fracture Surgery/Procedure Performed:: Left direct anterior hip hemiarthroplasty Description of Surgical Findings:: Stable hip with equal leg lengths Surgeon: Arturo Sanchez tanning wheel operator: Ricardo Brumfield Type of Anesthesia: General Anesthesiologist: Omkar Johnson Special Medications: Patient receiving scheduled vancomycin, metronidazole and cefepime on floor Specimen's removed: Bony cuts Estimated Blood Loss (mL): 150 Fluids Replaced: 400 Description of Procedure: Components used: 1. Insignia Zoë femoral stem size 3 high offset 2. Zoë cobalt-chromium Unitrax femoral head endoprosthesis 40 mm with +4 mm sleeve Procedure: On the date of procedure the patient's L hip was marked in the preoperative area. Patient was then taken back to the operating room where anesthesia assumed control of the C-spine and airway and administered anesthetic. Patient was transferred to the operating table and placed in the supine position. The hips were placed at the break of the bed and a sacral bump was placed. L The lower extremity was then prepped out in a sterile fashion using chlorhexidine while the surgeon scrubbed. The PA was vital in the positioning of the patient. Upon reentering the room the left lower extremity was draped in the standard orthopedic fashion and the incision was marked. A timeout was called and everyone agreed upon the side, the site, the procedure be performed, antibody given, and patient's identity. At this time incision was made through skin, subcutaneous tissue, and fat down to fascia. The fascia was then incised and the TFL was retracted laterally. A retractor was placed on the lateral border of the femoral neck. Attention was directed to the inferior portion of the approach and all crossing vessels were identified and appropriately coagulated. A retractor was then placed on the medial portion of the femoral neck. The anterior capsule was then cleared of all soft tissue and then H shaped capsulotomy was made. The retractors were then placed inside the capsule. The femoral neck was identified and a cleanup cut was made. At this time a power corkscrew was used to remove the femoral head. Attention was then turned toward the acetabulum where the soft tissues were appropriately retracted and the acetabulum was explored and all bony fragments were debrided. Once the acetabulum was cleared of debris, attention was then turned to the femur. Soft tissue releases on the medial and lateral femoral neck were appropriately done, the leg was externally rotated and lateralized. A Patel retractor was placed medially and proximally to the greater trochanter this allowed appropriate visualization and exposure of the femoral canal. Rongeour was then used to remove excess lateral bone. A canal finder and entry broach were used to open the proximal canal. Once we verified we were down the femoral canal we subsequently broached up to a size 3 femur. The appropriate neck was placed in the previously selected head was trialed with a 4 mm neck. Traction was pulled and the hip was reduced with internal rotation. Once it was appropriately reduced and stability was checked. There was minimal shuck, equal leg lengths and appropriate stability with hyperextension and external rotation as well as with 90? flexion and internal rotation. Fluoroscopy was then also used to verify the position of the components and leg lengths using the contralateral side for comparison. The trial components were then dislocated the proximal femur was again exposed and the components were removed from the wound. The final components were verified and opened. The wound was copiously irrigated out with normal saline. The acetabulum was checked for any residual debris. The final components were placed and impacted. Traction and internal rotation were again used to reduce the hip. After adequate reduction the hip remained stable with appropriate leg lengths. The final components were once again checked with live fluoroscopy and were found to be satisfactory. The wound was then copiously irrigated with normal saline once more, and hemostasis was obtained. Closure was then done using #1 Vicryl runner to close the fascia. A 2-0 vicryl interuppted sutures were used to close the subcutaneous skin. A 2-0 nylon suture was used for final skin closure. A Silverlon dressing was placed. Patient was awakened by anesthesia and transferred to the [facility]. Patient was then transferred to the PACU for recovery. = Postoperative plan: Patient will continue scheduled antibiotics. Patient will get in-house physical therapy and will be weight-bear as tolerated. Patient will follow up in office in 2 weeks for a wound check and x-rays. Patient will return to the ICU. She should resume her Eliquis as appropriate per her intensive care and medical team after 12 hours from surgery. Complications No intraoperative complications Admit VTE Documentation VTE Present on Admission: No VTE Mechan Device Prophylaxis: SCD's and Thigh High FORD Hose VTE Pharm Prophylaxis ordered?: Yes
[2023-07-03] MEDS: Potassium Chloride Oral Soln 20 MEQ/15 ML UDC 40 MEQ GT (18:24)
[2023-07-03] MEDS: Furosemide 20 MG/2 ML VIAL IV (18:24)
[2023-07-03] MEDS: Chlorhexidine 15 ML PO (21:10)
[2023-07-03] MEDS: Acetaminophen 650 MG/20 ML UDC 1000 MG GT (21:11)
[2023-07-03] MEDS: Pravastatin 80 MG Tablet GT (21:11)
[2023-07-04] VITALS (47 sets, daily range): BP systolic 81–159; BP diastolic 37–70; PULSE 51–79; RESP 8–20; TEMP 36.2–37.2; O2SAT 90–97; BMI 23.0
[2023-07-04] MEDS: fentaNYL drip 100 ML 10 MCG CONT INF (00:14)
[2023-07-04] MEDS: Lactated Ringers 500 ML 999 ML IV (00:22)
[2023-07-04 00:32] LABS: Hemoglobin 10.2 g/dL (12.0-15.0)
[2023-07-04] MEDS: Albumin Human 25% (100 mL) 25 GM/100 ML BAG IV ×2 (01:28→05:21)
[2023-07-04 04:11] LABS: Absolute Lymphocyte Count 0.89 X10^3/uL (0.83-4.51); Absolute Neutrophil Count 8.6 X10^3/uL (2.0-7.7); Basophil# 0.03 X10^3/uL; Basophil% 0.3 % (0-1); Eosinophil# 0.24 X10^3/uL; Eosinophils% 2.2 % (0-5); Hematocrit 25.9 % (37-47); Lymphocyte # 0.89 X10^3/ul (0.83-4.51); Mean Corp Hgb Conc 30.9 g/dL (32-36); Mean Corpuscular Hgb 28.1 pg (27.0-32.0); Mean Corpuscular Volume 90.9 fL (81-99); Mean Platelet Vol. 10.1 fl (6.2-12.0); Monocyte# 1.27 X10^3/uL; Monocyte% 11.5 % (0-10); NRBC Flagged by Analyzer 0 % (0-5); Neutrophil # 8.61 X10^3/uL (2.7-7.7); Neutrophil % 77.5 % (47-70); Platelet Count 225 K/mm3 (150-450); RBC Distribution Width CV 15.1 % (11.6-14.6); Red Blood Count 2.85 M/mm3 (4.2-5.4); White Blood Count 11.1 K/mm3 (4.4-11.0)
[2023-07-04 04:46] LABS: Anion Gap 7 (5-15); BUN 19 mg/dL (7-18); BUN/Creat Ratio 26.6 RATIO (10-20); Calcium,Total 6.4 mg/dL (8.5-10.1); Chloride 116 mmol/L (98-107); Creatinine, Serum 0.71 mg/dL (0.55-1.02); EST Glomerular Filtration Rate 83 mL/min (>60); Est Glom Filt Rate - Afr Amer 101 mL/min (>60); Estimated Creatinine Clearance 44.85 ml/min; Glucose 100 mg/dL (74-106); Potassium 2.7 mmol/L (3.5-5.1); Sodium Level 146 mmol/L (136-145)
[2023-07-04] MEDS: 0.9% Saline Lock 10 ML Syringe IV (05:21)
[2023-07-04] MEDS: Acetaminophen 650 MG/20 ML UDC 1000 MG GT ×3 (05:23→21:05)
[2023-07-04] MEDS: Levothyroxine 112 MCG Tablet GT (05:24)
[2023-07-04] MEDS: Neomycin/Polymyxin/Dexameth 5ML OPTH.BTL 1 DRP OPHTHALMIC ×3 (05:24→21:06)
[2023-07-04] MEDS: metroNIDAZOLE 500 MG/100 ML BAG 100 MG IV (05:28)
[2023-07-04 05:52] LABS: Allen Test Positive; Base Excess 3 mmol/L (-2 to +2); Bicarbonate 26.6 mmol/L (22-26); Blood Gas Specimen Type ART; Mode AC; O2 Delivery Device Adult Vent; PEEP 5; PO2 63 mmHG (75-100); RR 15; SITE R Radial; SO2 93 % (95-99); Total Carbon Dioxide 28 mmol/L; pCO2 36.5 mmHg (35-45); pH 7.47 (7.35-7.45)
--- NOTE | 2023-07-04 05:57 | NURSING ---
Per Dr. Ingram- will not start sepsis fluids at this time. He was notified that sepsis fluids were triggered. We are currently running a second dose of albumin.
[2023-07-04] MEDS: Norepinephrine 8 MG in 0.9% Normal Saline (250mL Bag) 242 ML 9.4 MG CONT INF (06:50)
--- NOTE | 2023-07-04 07:14 | PCM.PN.INT ---
Assessment & Plan Assessment/Plan (1) Acute hypoxemic respiratory failure: PLAN: Plan RECOMMENDATIONS: 1. Continue assist-control mode mechanical ventilation. Wean FiO2 and PEEP to maintain saturations at or above 90%. 2. Levophed, if needed, to maintain hemodynamic stability. 3. Aggressive electrolyte repletion as ordered. Check magnesium and phosphorus as well. 4. Continue empiric antimicrobials for now. 5. Check BNP, troponin and procalcitonin. 6. Continue attempts to daily paired spontaneous awakening and breathing trials. IMPRESSIONS: 1. Acute hypoxemic respiratory failure Clinical concern for hypervolemia as precipitating etiology, with lower suspicion for pneumonia. Recommend continuing invasive mechanical ventilatory support. Wean FiO2 and PEEP for saturations greater than 90%. Empiric antimicrobials have already been initiated and will be continued, pending finalized culture results. Plan to repeat spontaneous awakening and breathing trial tomorrow morning to assess readiness for extubation. In the interim, will attempt gentle diuresis today as tolerated by hemodynamics and renal function. 2. Left hip fracture, now POD #1 status post left direct anterior hip hemiarthroplasty Continue routine postoperative care per orthopedic surgery recommendations. 3. Hypotension Most likely secondary to hemodynamic effects of sedating medications. Attempt to minimize propofol and fentanyl to maintain a RASS of -1 to 1. 4. Anemia Continue to monitor blood counts and transfuse if hemoglobin drops below 7 g/dL. PPI therapy will be continued, as previously ordered. 5. Hypokalemia Aggressive electrolyte repletion as ordered. Check magnesium and phosphorus levels as well. 6. History of atrial fibrillation/flutter on home Eliquis/coronary artery disease/heart failure with preserved ejection fraction Continue amiodarone per baseline regimen. The patient would eventually benefit from gentle diuresis once hemodynamic status improves. 7. Advanced age/hypothyroidism/hypertension/GERD/hyperlipidemia Complicates care, management, recovery and prognosis. Continue to hold home antihypertensives. Continue PPI therapy. TIME: 38 minutes of critical care time, independent of procedures, was spent addressing the patient's acute hypoxemic respiratory failure, left hip fracture, hypotension, anemia, review of all data and collaboration with the care team. Subjective Subjective The patient was seen and examined at the bedside this morning. Events from the last 24 hours have been reviewed. Overnight, the patient became hypotensive and was given a total of 50 g of albumin by the covering hospitalist, which ultimately did not improve the hemodynamic status. This morning, the patient had to be initiated on low-dose Levophed. The patient was initially admitted on June 29 in the setting of left hip pain secondary to fracture. Patient has a known history of coronary artery disease and paroxysmal atrial flutter. The patient was initially taken to the OR, but anesthesia canceled the case due to hypoxemia. The patient was transferred to the medical intensive care unit and placed on noninvasive positive pressure ventilatory support. Ultimately, the patient had to be intubated on the afternoon of July 02 due to worsening respiratory failure. The patient was able to be taken back to the OR on July 02 where she underwent a left direct anterior hip hemiarthroplasty. This morning, white blood cell count is elevated 11,000 with a hemoglobin of 8.0 g/dL. The patient has experienced a 2 g drop in her hemoglobin over the last 24 hours. ABG this morning demonstrated a pH of 7.47 with a pCO2 of 36 and pO2 of 63. Chemistry profile was notable for a sodium of 146, potassium of 2.7, chloride of 116 and normal creatinine. The patient remains on empiric antimicrobials. Sputum and urine cultures are pending. Objective Data Objective Data The patient's most recent lab work, culture data and imaging studies have all been personally reviewed. Surface echocardiogram demonstrated mild concentric LVH with an ejection fraction of 60% and stage II diastolic dysfunction. Right ventricular systolic pressure was estimated to be 49 mmHg. Sputum culture is pending. Vital Signs: Vital Signs Temp Pulse Resp BP Pulse Ox O2 Del Method O2 Flow Rate 97.5 F L 69 17 132/68 H 91 Mechanical Ventilator 15 07/04/23 04:00 07/04/23 07:00 07/04/23 07:00 07/04/23 07:00 07/04/23 07:00 07/04/23 07:00 07/03/23 11:10 FiO2 35 07/04/23 07:00 Oxygen Flow Rate (L/min) 15 Oxygen Delivery Method Mechanical Ventilator Weight: 130 lb 1.164 oz Body Mass Index (BMI) 23.0 Intake & Output: Intake and Output for Last 24 Hours 07/02/23 07/03/23 07/04/23 23:59 23:59 23:59 Intake Total 1200 / 1200 2103.33 / 2113.33 761.57 / 761.57 Output Total 1300 / 2250 3500 / 3500 125 / 125 Balance -100 / -1050 -1396.67 / -1386.67 636.57 / 636.57 Lab / Micro Data Attestation: I reviewed the patient's lab results. 07/04/23 03:55 07/04/23 03:55 Labs: Laboratory Results - last 24 hr 07/03/23 04:05: Total Creatine Kinase 1021 H, Triglycerides 119 07/03/23 06:45: Urine Color Yellow, Urine Clarity Clear, Urine pH 6.0, Ur Specific [place] 1.020, Urine Protein 100 H, Urine Glucose (UA) Normal, Urine Ketones 50 H, Urine Occult Blood 250 H, Urine Nitrite Negative, Urine Bilirubin Negative, Urine Urobilinogen Normal, Ur Leukocyte Esterase 25 H, Urine RBC 25-50 SEEN, Urine WBC 0-5 SEEN, Ur Squamous Epith Cells 0-5 SEEN, Urine Bacteria 1+, Urine Mucus 0 SEEN 07/03/23 10:45: D-Dimer Quant (PE/DVT) 3.25 H* 07/04/23 00:08: Hgb 10.2 L 07/04/23 03:55: WBC 11.1 H, RBC 2.85 L, Hgb 8.0 L, Hct 25.9 L, MCV 90.9, MCH 28.1, MCHC 30.9 L, RDW Std Deviation 50.0 H, RDW Coeff of [place] 15.1 H, Plt Count 225, MPV 10.1, Immature Gran % (Auto) 0.500, Neut % (Auto) 77.5 H, Lymph % (Auto) 8.0 L, [place] % (Auto) 11.5 H, Eos % (Auto) 2.2, Baso % (Auto) 0.3, Absolute Neuts (auto) 8.6 H, Absolute Lymphs (auto) 0.89, Nucleated RBC % 0, Sodium 146 H, Potassium 2.7 L*, Chloride 116 H, Carbon Dioxide 23.0, Anion Gap 7, BUN 19 H, Creatinine 0.71, Estim Creat Clear Calc 44.85, Est GFR (MDRD) Af Amer 101, Est GFR (MDRD) Non-Af 83, BUN/Creatinine Ratio 26.6 H, Glucose 100, Calcium 6.4 L* Micro: Microbiology 07/03/23 08:27 Mucosa - Nasopharyngeal Coronavirus COVID-19 PCR - Final ABG Data ABG results: ABG 07/03/23 07/04/23 15:32 05:49 Specimen Type ART ART Sample Site Art Line R Radial pH 7.67 H* 7.47 H Bicarbonate Actual 20.3 L 26.6 H Total CO2 21 28 Base Excess 0 3 H O2 Saturation 99 93 L O2 % 40.0 40.0 ABG pCO2 17.8 L* 36.5 ABG pO2 101 H 63 L Que Test Positive Respiration Rate 24 15 O2 Delivery Device Adult Vent Adult Vent Vent Mode AC AC Tidal Volume 450.0 400.0 POC PEEP 8 5 Crit Call To/Read Back Yes Radiography Diagnostic Testing: Radiology Impression Chest CTA 07/03/23 10:08 IMPRESSION: CTA chest examination, without a demonstrated pulmonary embolism or arterial dissection. Bilateral edema or pneumonia and pleural effusions. Electronically Signed: Ervin Ramirez MD at 12:50 EDT , Chest X-Ray 07/03/23 12:35 IMPRESSION: Endotracheal tube and feeding tube placement. Bilateral edema or infiltrates and small effusions. Electronically Signed: Ervin Ramirez MD at 15:19 EDT , KUB X-Ray 07/03/23 12:35 IMPRESSION: Feeding tube extends to the stomach. Electronically Signed: Ervin Ramirez MD at 15:01 EDT , Hip X-Ray 07/03/23 17:00 IMPRESSION: Fluoroscopic assistance images were obtained. Dictation for documentation purposes only. Electronically Signed: Greg Heart MD at 18:43 EDT , Physical Exam Const Constitutional Narrative: Intubated, sedated and mechanically ventilated. HEENT normocephalic and head/scalp atraumatic HEENT Narrative: Nasogastric tube in place. Mouth: endotracheal tube in place Eyes PERRL and EOMs intact bilaterally Neck supple General: trachea midline Chest inspection of chest normal Resp normal respiratory effort Auscultation: Negative for rales, rhonchi or wheezes Cardio regular rate and regular rhythm GI normal to inspection, nondistended, normoactive bowel sounds Extremity no clubbing, cyanosis or edema Skin no rashes or lesions noted Neuro Sensorium / Orientation: sedated on vent Charges/Coding Procedures Hospitalists Procedures: 35044 Critical Care 1st Hr
[2023-07-04] MEDS: Potassium Chloride 10mEq/100mL 10 MEQ/100 ML IV.SOLN. 100 MEQ IV BOLUS ×4 (09:34→13:37)
[2023-07-04] MEDS: TITRATION PARAMETER CHANGE 1 EACH IV (09:38)
[2023-07-04] MEDS: Potassium Chloride Oral Soln 20 MEQ/15 ML UDC 40 MEQ PO (09:42)
[2023-07-04 09:43] LABS: Troponin-I HS 206 pg/mL (3.0-54.0)
[2023-07-04] MEDS: Sertraline 50 MG Tablet GT (09:44)
[2023-07-04] MEDS: Calcium Carbonate 500 MG Tablet GT ×2 (09:44→21:05)
[2023-07-04] MEDS: Amiodarone 200 MG Tablet GT (09:44)
[2023-07-04] MEDS: Lansoprazole 15 MG Capsule.DR NG (09:45)
[2023-07-04] MEDS: Aspirin 81 MG TAB.CHEW GT (09:45)
[2023-07-04] MEDS: Furosemide 20 MG/2 ML VIAL IV ×2 (09:45→17:16)
[2023-07-04] MEDS: Ezetimibe 10 MG Tablet GT (09:46)
[2023-07-04] MEDS: Chlorhexidine 15 ML PO ×2 (10:02→21:06)
[2023-07-04 10:12] LABS: Magnesium 2.2 mg/dL (1.6-2.6); Phosphorus 0.6 mg/dL (2.5-4.9)
[2023-07-04] MEDS: Cefepime HCl 1 GM in 0.9% Normal Saline (50mL MB+) 50 ML IV (10:47)
--- NOTE | 2023-07-04 11:05 | CASEMGMT ---
Social Work SW participated in ICU rounds this morning. SW spoke w/pt, son Von, BOB Fay, and son Venancio in room in regard to discharge plan when medically appropriate. All seem in agreement that pt going somewhere for rehab would be beneficial. SW provided to family a list from [facility] of [facility] facilities in network w/insurance, in pt's preferred geographic area, and complete w/quality and resource use data. Nya states family was interested in TCU. SW explained will make referral when we are closer to pt being ready to be discharged. SW will continue to follow. NIURKA Lewis
[2023-07-04] MEDS: Potassium Phosphate 40 MM in 0.9% Normal Saline (500mL Bag) 500 ML 62.5 MM IV (11:42)
--- NOTE | 2023-07-04 11:50 | PCM.PN.ORT ---
Subjective Subjective Patient lying in bed with her son at bedside. Patient on ventilator. Patient is awake. Son reports that she has been resting comfortably. Objective Data Objective Data Vital Signs: Vital Signs Temp Pulse Resp BP Pulse Ox O2 Del Method O2 Flow Rate 99.0 F 64 19 H 108/47 L 93 Mechanical Ventilator 15 07/04/23 08:15 07/04/23 11:00 07/04/23 11:00 07/04/23 11:00 07/04/23 11:00 07/04/23 11:00 07/03/23 11:10 FiO2 30 07/04/23 11:00 Oxygen Flow Rate (L/min) 15 Oxygen Delivery Method Mechanical Ventilator Weight: 59 kg Body Mass Index (BMI) 23.0 Intake & Output: Intake and Output for Last 24 Hours 07/02/23 07/03/23 07/04/23 23:59 23:59 23:59 Intake Total 1200 / 1200 2103.33 / 2113.33 1072.83 / 1072.83 Output Total 1300 / 2250 3500 / 3500 425 / 425 Balance -100 / -1050 -1396.67 / -1386.67 647.83 / 647.83 Lab / Micro Data 07/04/23 03:55 07/04/23 03:55 Labs: Laboratory Results - last 24 hr 07/03/23 04:05: Total Creatine Kinase 1021 H, Triglycerides 119 07/04/23 00:08: Hgb 10.2 L 07/04/23 03:55: WBC 11.1 H, RBC 2.85 L, Hgb 8.0 L, Hct 25.9 L, MCV 90.9, MCH 28.1, MCHC 30.9 L, RDW Std Deviation 50.0 H, RDW Coeff of [place] 15.1 H, Plt Count 225, MPV 10.1, Immature Gran % (Auto) 0.500, Neut % (Auto) 77.5 H, Lymph % (Auto) 8.0 L, [place] % (Auto) 11.5 H, Eos % (Auto) 2.2, Baso % (Auto) 0.3, Absolute Neuts (auto) 8.6 H, Absolute Lymphs (auto) 0.89, Nucleated RBC % 0, Sodium 146 H, Potassium 2.7 L*, Chloride 116 H, Carbon Dioxide 23.0, Anion Gap 7, BUN 19 H, Creatinine 0.71, Estim Creat Clear Calc 44.85, Est GFR (MDRD) Af Amer 101, Est GFR (MDRD) Non-Af 83, BUN/Creatinine Ratio 26.6 H, Glucose 100, Calcium 6.4 L* 07/04/23 08:30: Phosphorus 0.6 L*, Magnesium 2.2, Troponin I High Sens 206 H* Micro: Microbiology 07/03/23 08:27 Mucosa - Nasopharyngeal Coronavirus COVID-19 PCR - Final ABG Data ABG results: ABG 07/03/23 07/04/23 15:32 05:49 Specimen Type ART ART Sample Site Art Line R Radial pH 7.67 H* 7.47 H Bicarbonate Actual 20.3 L 26.6 H Total CO2 21 28 Base Excess 0 3 H O2 Saturation 99 93 L O2 % 40.0 40.0 ABG pCO2 17.8 L* 36.5 ABG pO2 101 H 63 L Que Test Positive Respiration Rate 24 15 O2 Delivery Device Adult Vent Adult Vent Vent Mode AC AC Tidal Volume 450.0 400.0 POC PEEP 8 5 Crit Call To/Read Back Yes Radiography Diagnostic Testing: Radiology Impression Chest CTA 07/03/23 10:08 IMPRESSION: CTA chest examination, without a demonstrated pulmonary embolism or arterial dissection. Bilateral edema or pneumonia and pleural effusions. Electronically Signed: Ervin Ramirez MD at 12:50 EDT Reading Location ID and State: [facility] / [place] , Service support , Chest X-Ray 07/03/23 12:35 IMPRESSION: Endotracheal tube and feeding tube placement. Bilateral edema or infiltrates and small effusions. Electronically Signed: Ervin Ramirez MD at 15:19 EDT , KUB X-Ray 07/03/23 12:35 IMPRESSION: Feeding tube extends to the stomach. Electronically Signed: Ervin Ramirez MD at 15:01 EDT , Hip X-Ray 07/03/23 17:00 IMPRESSION: Fluoroscopic assistance images were obtained. Dictation for documentation purposes only. Electronically Signed: Greg Heart MD at 18:43 EDT , Physical Exam Narrative Exam, I found the patient lying in bed in ICU on a ventilator. Patient's son at her bedside. Patient is awake and appears to be resting comfortably. Patient does follow verbal commands. The left hip is cool to touch nonerythematous. The dressing is clean dry intact. Patient reported no calf pain. Neurovascular is otherwise intact. Const alert General Appearance: cooperative Resp Resp Narrative: Patient not a ventilator being managed by medicine due to respiratory failure Extremity normal capillary refill Skin no rashes or lesions noted Assessment & Plan Assessment/Plan (1) History of left hip hemiarthroplasty: PLAN: 1. Continue all pain medications as prescribed. 2. Medicine will continue medically managing patient for her respiratory failure and all other underlying medical issues 3. Continue SCDs bilaterally. 4. Ice to left hip 5. Medicine will continue to manage postop anticoagulation for postop DVT prophylaxis 6. Therapy can work with patient with passive range of motion of the hip while laying in bed.
[2023-07-04] MEDS: fentaNYL drip 100 ML 7.5 MCG CONT INF (12:04)
[2023-07-04] MEDS: Vancomycin IV 500 MG/100 ML BAG 100 MG IV (13:40)
--- NOTE | 2023-07-04 14:16 | PN_ITS ---
Subjective Subjective Patient seen and examined. Son and daughter was by her bedside. She failed spontaneous breathing trial today so remains intubated. RASS SS score is +1. She is able to nod or shake her head. She denied being in pain and indicated she just wanted the tube out. Unable to do comprehensive review of systems as she is still intubated. Objective Data Objective Data Vital Signs: Vital Signs Temp Pulse Resp BP Pulse Ox O2 Del Method O2 Flow Rate 97.4 F L 67 16 117/50 L 94 Mechanical Ventilator 30 07/04/23 12:00 07/04/23 13:00 07/04/23 13:00 07/04/23 13:00 07/04/23 13:00 07/04/23 13:00 07/04/23 13:00 FiO2 30 07/04/23 12:00 Oxygen Flow Rate (L/min) 30 Oxygen Delivery Method Mechanical Ventilator Weight: 130 lb 1.164 oz Body Mass Index (BMI) 23.0 Intake & Output: Intake and Output for Last 24 Hours 07/02/23 07/03/23 07/04/23 23:59 23:59 23:59 Intake Total 1200 / 1200 2103.33 / 2113.33 1344.15 / 1344.15 Output Total 1300 / 2250 3500 / 3500 425 / 425 Balance -100 / -1050 -1396.67 / -1386.67 919.15 / 919.15 Lab / Micro Data 07/04/23 03:55 07/04/23 03:55 Labs: Laboratory Results - last 24 hr 07/03/23 04:05: Total Creatine Kinase 1021 H, Triglycerides 119 07/04/23 00:08: Hgb 10.2 L 07/04/23 03:55: WBC 11.1 H, RBC 2.85 L, Hgb 8.0 L, Hct 25.9 L, MCV 90.9, MCH 28.1, MCHC 30.9 L, RDW Std Deviation 50.0 H, RDW Coeff of [place] 15.1 H, Plt Count 225, MPV 10.1, Immature Gran % (Auto) 0.500, Neut % (Auto) 77.5 H, Lymph % (Auto) 8.0 L, [place] % (Auto) 11.5 H, Eos % (Auto) 2.2, Baso % (Auto) 0.3, Absolute Neuts (auto) 8.6 H, Absolute Lymphs (auto) 0.89, Nucleated RBC % 0, Sodium 146 H, Potassium 2.7 L*, Chloride 116 H, Carbon Dioxide 23.0, Anion Gap 7, BUN 19 H, Creatinine 0.71, Estim Creat Clear Calc 44.85, Est GFR (MDRD) Af Amer 101, Est GFR (MDRD) Non-Af 83, BUN/Creatinine Ratio 26.6 H, Glucose 100, Calcium 6.4 L* 07/04/23 08:30: Phosphorus 0.6 L*, Magnesium 2.2, Troponin I High Sens 206 H* Micro: Microbiology 07/03/23 15:45 Sputum, Induced/[place] Gram Stain - Final 07/03/23 08:27 Mucosa - Nasopharyngeal Coronavirus COVID-19 PCR - Final ABG Data ABG results: ABG 07/03/23 07/04/23 15:32 05:49 Specimen Type ART ART Sample Site Art Line R Radial pH 7.67 H* 7.47 H Bicarbonate Actual 20.3 L 26.6 H Total CO2 21 28 Base Excess 0 3 H O2 Saturation 99 93 L O2 % 40.0 40.0 ABG pCO2 17.8 L* 36.5 ABG pO2 101 H 63 L Que Test Positive Respiration Rate 24 15 O2 Delivery Device Adult Vent Adult Vent Vent Mode AC AC Tidal Volume 450.0 400.0 POC PEEP 8 5 Crit Call To/Read Back Yes Radiography Diagnostic Testing: Radiology Impression Chest X-Ray 07/03/23 12:35 IMPRESSION: Endotracheal tube and feeding tube placement. Bilateral edema or infiltrates and small effusions. Electronically Signed: Ervin Ramirez MD at 15:19 EDT , KUB X-Ray 07/03/23 12:35 IMPRESSION: Feeding tube extends to the stomach. Electronically Signed: Ervin Ramirez MD at 15:01 EDT , Hip X-Ray 07/03/23 17:00 IMPRESSION: Fluoroscopic assistance images were obtained. Dictation for documentation purposes only. Electronically Signed: Greg Heart MD at 18:43 EDT , Physical Exam Const alert Constitutional Narrative: intubated General Appearance: cooperative HEENT normocephalic and head/scalp atraumatic Mouth: dry mucous membranes Eyes PERRL and EOMs intact bilaterally Neck no lymphadenopathy and supple Lymph Lymphatic: no lymphadenopathy noted and no lymphedema noted Resp Resp Narrative: Still intubated. Diminished breath sounds bibasilarly. No wheezes or crackles. Cardio regular rate, regular rhythm, S1 normal heart sound, S2 normal heart sound and no murmurs GI normal to inspection, nondistended, normoactive bowel sounds, soft to palpation, non-tender and non-distended Extremity no clubbing, cyanosis or edema and no calf tenderness Skin Skin Narrative: Intact dressing over surgical site. Neuro Neuro Narrative: intubated, RASS score is 0-1. Motor Exam: general weakness Psych cooperative Assessment & Plan Assessment/Plan (1) History of left hip hemiarthroplasty: (2) Acute hypoxemic respiratory failure: PLAN: Plan #Acute hypoxic respiratory failure * Failed spontaneous breathing trial today. Remains intubated. * Concern was that this was likely due to hypervolemia. Currently on empiric antibiotics.- IV vancomycin and cefepime. * To be gently diuresed today. * For repeat spontaneous breathing trial tomorrow to see if she can be extubated. #Left displaced subcapital femoral neck fracture * S/p left direct anterior hip hemiarthroplasty. Surgery was initially consulted due to hypoxia. Subsequently had surgery on 07/03/2023. * Remains intubated. * PT OT on board. * Fall precautions. #History of CAD s/p stents: Plavix on hold. On statin. Cardiology did see patient for preop cardiac risk stratification. #Paroxysmal A-fib: On amiodarone and Coreg. Eliquis on hold due to surgery. #History of CAD s/p stents: Plavix on hold. On statin. #History of CKD stage IIIb: Creatinine at her baseline. Will monitor. # Hypothyroidism: On Synthroid #Hypertension: On amlodipine and Coreg. Losartan held due to elevated creatinine. #Hyperlipidemia: on statin #Depression; on sertraline. On melatonin. DVT prophylaxis; eliquis on hold. To resume when ok with orthopedic surgery. Charges/Coding Visit Charges Inpatient E&M: 81593 Subs Hosp L3
[2023-07-04 16:54] LABS: BNP,B-Type NATRIURETIC PEPTIDE 288.8 pg/mL (0-100)
[2023-07-04 19:15] LABS: BNP,B-Type NATRIURETIC PEPTIDE 888.9 pg/mL (0-100)
[2023-07-04] MEDS: Pravastatin 80 MG Tablet GT (21:06)
[2023-07-05] VITALS (31 sets, daily range): BP systolic 103–146; BP diastolic 45–114; PULSE 58–85; RESP 10–21; TEMP 36.4–37.2; O2SAT 92–99; BMI 23.3
[2023-07-05] MEDS: fentaNYL drip 100 ML 7.5 MCG CONT INF (00:52)
[2023-07-05] MEDS: Acetaminophen 650 MG/20 ML UDC 1000 MG GT (06:15)
[2023-07-05 06:16] LABS: Absolute Lymphocyte Count 0.87 X10^3/uL (0.83-4.51); Basophil# 0.03 X10^3/uL; Basophil% 0.2 % (0-1); Eosinophil# 0.17 X10^3/uL; Eosinophils% 1.4 % (0-5); Hematocrit 29.5 % (37-47); Hemoglobin 9.3 g/dL (12.0-15.0); Lymphocyte # 0.87 X10^3/ul (0.83-4.51); Lymphocyte % 6.9 % (19-41); Mean Corp Hgb Conc 31.5 g/dL (32-36); Mean Corpuscular Hgb 28.4 pg (27.0-32.0); Mean Corpuscular Volume 89.9 fL (81-99); Mean Platelet Vol. 9.9 fl (6.2-12.0); Monocyte# 1.41 X10^3/uL; Monocyte% 11.3 % (0-10); NRBC Flagged by Analyzer 0 % (0-5); Neutrophil # 9.97 X10^3/uL (2.7-7.7); Neutrophil % 79.6 % (47-70); Platelet Count 293 K/mm3 (150-450); RBC Distribution Width CV 15.7 % (11.6-14.6); RBC Distribution Width SD 52.2 fl (35.1-43.9); Red Blood Count 3.28 M/mm3 (4.2-5.4); White Blood Count 12.5 K/mm3 (4.4-11.0)
[2023-07-05] MEDS: Levothyroxine 112 MCG Tablet GT (06:16)
[2023-07-05 06:37] LABS: Anion Gap 5 (5-15); BUN 20 mg/dL (7-18); BUN/Creat Ratio 22.5 RATIO (10-20); Calcium,Total 7.5 mg/dL (8.5-10.1); Chloride 114 mmol/L (98-107); Creatinine, Serum 0.89 mg/dL (0.55-1.02); EST Glomerular Filtration Rate 65 mL/min (>60); Est Glom Filt Rate - Afr Amer 78 mL/min (>60); Estimated Creatinine Clearance 40.31 ml/min; Glucose 110 mg/dL (74-106); Potassium 3.2 mmol/L (3.5-5.1); Sodium Level 147 mmol/L (136-145)
--- NOTE | 2023-07-05 06:58 | NURSING ---
Patient extubated to 4 L at 0655. NG removed as well.
--- NOTE | 2023-07-05 07:11 | PN.CC_ITS ---
Assessment & Plan Assessment/Plan (1) Acute hypoxemic respiratory failure: PLAN: Plan RECOMMENDATIONS: 1. Proceed with a trial of extubation this morning. 2. Once extubated, wean supplemental oxygen to maintain saturations at or above 90%. 3. Dietary advancement, following swallow evaluation. 4. Additional electrolyte repletion as ordered. 5. Continue empiric antibiotics for now, pending finalized culture results. 6. Encourage incentive spirometer use and mobilize patient as tolerated. IMPRESSIONS: 1. Acute hypoxemic respiratory failure Clinical concern for hypervolemia as precipitating etiology, with lower suspicion for pneumonia. With invasive mechanical ventilatory support and gentle diuresis, the patient has improved from a respiratory perspective. She was able to be extubated this morning. The patient will be maintained on supplemental oxygen, as needed, to maintain saturations at or above 90%. Encourage incentive spirometer use and mobilize patient as tolerated. Empiric antibiotics will be continued, pending finalized culture results. If culture results are negative, will discontinue antibiotics completely. 2. Left hip fracture, now POD #2 status post left direct anterior hip hemiarthroplasty Continue routine postoperative care per orthopedic surgery recommendations. 3. Anemia Continue to monitor blood counts and transfuse if hemoglobin drops below 7 g/dL. PPI therapy will be continued. 4. Hypokalemia Additional electrolyte repletion as ordered. 5. History of atrial fibrillation/flutter on home Eliquis/coronary artery disease/heart failure with preserved ejection fraction Continue amiodarone per baseline regimen. 6. Advanced age/hypothyroidism/hypertension/GERD/hyperlipidemia Complicates care, management, recovery and prognosis. Continue PPI therapy. Physical therapy to work with the patient. TIME: 34 minutes of critical care time, independent of procedures, was spent addressing the patient's acute hypoxemic respiratory failure, left hip fracture, hypotension, anemia, review of all data and collaboration with the care team. Subjective Subjective The patient was seen and examined at the bedside this morning. Events from the last 24 hours have been reviewed. The patient is currently afebrile, hemodynamically stable and maintaining appropriate oxygen saturations on spontaneous mode of mechanical ventilation with an FiO2 requirement of 30%. The patient passed her spontaneous breathing trial this morning. She was weaned from Levophed last night. She is alert and appropriately interactive. Accordingly, the patient was extubated this morning without complication. Hemoglobin is stable at 9.3 g/dL. Potassium is low at 3.2. Objective Data Objective Data The patient's most recent lab work, culture data and imaging studies have all been personally reviewed. Surface echocardiogram demonstrated mild concentric LVH with an ejection fraction of 60% and stage II diastolic dysfunction. Right ventricular systolic pressure was estimated to be 49 mmHg. Sputum culture is pending. Vital Signs: Vital Signs Temp Pulse Resp BP Pulse Ox O2 Del Method O2 Flow Rate 98.2 F 71 14 131/53 H 92 Nasal Cannula 2 07/05/23 06:00 07/05/23 07:00 07/05/23 07:00 07/05/23 07:00 07/05/23 07:00 07/05/23 07:00 07/05/23 07:00 FiO2 30 07/05/23 06:00 Oxygen Flow Rate (L/min) 2 Oxygen Delivery Method Nasal Cannula Weight: 131 lb 9.855 oz Body Mass Index (BMI) 23.3 Intake & Output: Intake and Output for Last 24 Hours 07/03/23 07/04/23 07/05/23 23:59 23:59 23:59 Intake Total 2103.33 / 2113.33 2304.8233 / 2342.3233 181.25 / 181.25 Output Total 3500 / 3500 825 / 1825 1200 / 1200 Balance -1396.67 / -1386.67 1479.8233 / 517.3233 -1018.75 / -1018.75 Lab / Micro Data Attestation: I reviewed the patient's lab results. 07/05/23 05:55 07/05/23 05:55 Labs: Laboratory Results - last 24 hr 07/01/23 06:20: Crossmatch See Detail 07/03/23 10:45: B-Natriuretic Peptide 888.9 H 07/04/23 08:30: Phosphorus 0.6 L*, Magnesium 2.2, Troponin I High Sens 206 H*, B -Natriuretic Peptide 288.8 H 07/05/23 05:55: WBC 12.5 H, RBC 3.28 L, Hgb 9.3 L, Hct 29.5 L, MCV 89.9, MCH 28.4, MCHC 31.5 L, RDW Std Deviation 52.2 H, RDW Coeff of Polo 15.7 H, Plt Count 293, MPV 9.9, Immature Gran % (Auto) 0.600, Neut % (Auto) 79.6 H, Lymph % (Auto) 6.9 L, [place] % (Auto) 11.3 H, Eos % (Auto) 1.4, Baso % (Auto) 0.2, Absolute Neuts (auto) 10.0 H, Absolute Lymphs (auto) 0.87, Nucleated RBC % 0, Sodium 147 H, P otassium 3.2 L, Chloride 114 H, Carbon Dioxide 28.0, Anion Gap 5, BUN 20 H, Creatinine 0.89, Estim Creat Clear Calc 40.31, Est GFR (MDRD) Af Amer 78, Est GFR (MDRD) Non-Af 65, BUN/Creatinine Ratio 22.5 H, Glucose 110 H, Calcium 7.5 L Micro: Microbiology 07/03/23 15:45 Sputum, Induced/Lukens Gram Stain - Final 07/03/23 08:27 Mucosa - Nasopharyngeal Coronavirus COVID-19 PCR - Final ABG Data ABG results: ABG 07/03/23 07/04/23 15:32 05:49 Specimen Type ART ART Sample Site Art Line R Radial pH 7.67 H* 7.47 H Bicarbonate Actual 20.3 L 26.6 H Total CO2 21 28 Base Excess 0 3 H O2 Saturation 99 93 L O2 % 40.0 40.0 ABG pCO2 17.8 L* 36.5 ABG pO2 101 H 63 L Que Test Positive Respiration Rate 24 15 O2 Delivery Device Adult Vent Adult Vent Vent Mode AC AC Tidal Volume 450.0 400.0 POC PEEP 8 5 Crit Call To/Read Back Yes Radiography Diagnostic Testing: Radiology Impression Chest CTA 07/03/23 10:08 IMPRESSION: CTA chest examination, without a demonstrated pulmonary embolism or arterial dissection. Bilateral edema or pneumonia and pleural effusions. Electronically Signed: Ervin Ramirez MD at 12:50 EDT , Chest X-Ray 07/03/23 12:35 IMPRESSION: Endotracheal tube and feeding tube placement. Bilateral edema or infiltrates and small effusions. Electronically Signed: Ervin Ramirez MD at 15:19 EDT , KUB X-Ray 07/03/23 12:35 IMPRESSION: Feeding tube extends to the stomach. Electronically Signed: Ervin Ramirez MD at 15:01 EDT , Hip X-Ray 07/03/23 17:00 IMPRESSION: Fluoroscopic assistance images were obtained. Dictation for documentation purposes only. Electronically Signed: Greg Heart MD at 18:43 EDT , Physical Exam Const alert and no apparent distress Constitutional Narrative: Remains intubated and mechanically ventilated. Currently tolerating spontaneous mode of mechanical ventilation. HEENT normocephalic and head/scalp atraumatic HEENT Narrative: Nasogastric tube in place. Mouth: endotracheal tube in place Eyes PERRL and EOMs intact bilaterally Neck supple General: trachea midline Chest inspection of chest normal Resp normal respiratory effort Auscultation: Negative for rales, rhonchi or wheezes Cardio regular rate and regular rhythm GI normal to inspection, nondistended, normoactive bowel sounds Extremity no clubbing, cyanosis or edema Skin no rashes or lesions noted Neuro Sensorium / Orientation: sedated on vent Charges/Coding Procedures Hospitalists Procedures: 08628 Critical Care 1st Hr
--- NOTE | 2023-07-05 07:30 | PN.ORTHO_ITS ---
Subjective Subjective Patient sitting up in bed, has been remove the ventilator. Patient states she is very happy to be off the ventilator. She feels her pain has been very well- managed. At this time denies any chest pain calf pain nausea vomiting. Objective Data Objective Data Vital Signs: Vital Signs Temp Pulse Resp BP Pulse Ox O2 Del Method O2 Flow Rate 98.2 F 71 14 131/53 H 92 Nasal Cannula 2 07/05/23 06:00 07/05/23 07:00 07/05/23 07:00 07/05/23 07:00 07/05/23 07:00 07/05/23 07:00 07/05/23 07:00 FiO2 30 07/05/23 06:00 Oxygen Flow Rate (L/min) 2 Oxygen Delivery Method Nasal Cannula Weight: 59.7 kg Body Mass Index (BMI) 23.3 Intake & Output: Intake and Output for Last 24 Hours 07/03/23 07/04/23 07/05/23 23:59 23:59 23:59 Intake Total 2103.33 / 2113.33 2304.8233 / 2342.3233 181.25 / 181.25 Output Total 3500 / 3500 825 / 1825 1200 / 1200 Balance -1396.67 / -1386.67 1479.8233 / 517.3233 -1018.75 / -1018.75 Lab / Micro Data 07/05/23 05:55 07/05/23 05:55 Labs: Laboratory Results - last 24 hr 07/01/23 06:20: Crossmatch See Detail 07/03/23 10:45: B-Natriuretic Peptide 888.9 H 07/04/23 08:30: Phosphorus 0.6 L*, Magnesium 2.2, Troponin I High Sens 206 H*, B -Natriuretic Peptide 288.8 H 07/05/23 05:55: WBC 12.5 H, RBC 3.28 L, Hgb 9.3 L, Hct 29.5 L, MCV 89.9, MCH 28.4, MCHC 31.5 L, RDW Std Deviation 52.2 H, RDW Coeff of Polo 15.7 H, Plt Count 293, MPV 9.9, Immature Gran % (Auto) 0.600, Neut % (Auto) 79.6 H, Lymph % (Auto) 6.9 L, [place] % (Auto) 11.3 H, Eos % (Auto) 1.4, Baso % (Auto) 0.2, Absolute Neuts (auto) 10.0 H, Absolute Lymphs (auto) 0.87, Nucleated RBC % 0, Sodium 147 H, P otassium 3.2 L, Chloride 114 H, Carbon Dioxide 28.0, Anion Gap 5, BUN 20 H, Creatinine 0.89, Estim Creat Clear Calc 40.31, Est GFR (MDRD) Af Amer 78, Est GFR (MDRD) Non-Af 65, BUN/Creatinine Ratio 22.5 H, Glucose 110 H, Calcium 7.5 L Micro: Microbiology 07/03/23 15:45 Sputum, Induced/Lukens Gram Stain - Final 07/03/23 08:27 Mucosa - Nasopharyngeal Coronavirus COVID-19 PCR - Final Physical Exam Narrative Upon entering the room I found patient sitting up in her bed. Patient has been removed from the ventilator and is presently on nasal cannula. Patient speaking in full sentences. Moving upper extremities without limitations. Exam of the left hip I found the dressing to be clean dry intact. Patient has good flexion of the hip. Good flexion extension of the knee. No calf pain. Neurovascular is otherwise intact. Const alert and oriented x3 General Appearance: cooperative Eyes PERRL Extremity normal capillary refill Skin no rashes or lesions noted Neuro CN's II-XII intact bilaterally Psych mental status grossly normal Assessment & Plan Assessment/Plan (1) History of left hip hemiarthroplasty: PLAN: 1. Continue all pain medications as prescribed 2. Continue Eliquis postop DVT prophylaxis as directed by medicine 3. Medicine will continue to manage medically 4. Begin physical therapy with passive and active range of motion while in bed. When medically cleared patient begin ambulate full weightbearing with use of a walker and assistance 5. Continue ice left hip 6. Continue SCDs
[2023-07-05] MEDS: Potassium Chloride 10mEq/100mL 10 MEQ/100 ML IV.SOLN. 100 MEQ IV BOLUS ×4 (07:44→10:36)
[2023-07-05] MEDS: Aspirin 81 MG TAB.CHEW GT (07:54)
[2023-07-05] MEDS: Lansoprazole 15 MG Capsule.DR NG (07:55)
[2023-07-05] MEDS: Amiodarone 200 MG Tablet GT (07:55)
[2023-07-05] MEDS: Ezetimibe 10 MG Tablet GT (07:55)
[2023-07-05] MEDS: Sertraline 50 MG Tablet GT (07:55)
[2023-07-05 10:18] LABS: Pathologist Review Reviewed
[2023-07-05 10:21] LABS: Pathologist Review Reviewed
[2023-07-05] MEDS: APIXABAN 2.5 MG TABLET (WCH) PO ×2 (10:33→21:05)
[2023-07-05] MEDS: Furosemide 20 MG/2 ML VIAL IV ×2 (10:33→17:57)
--- NOTE | 2023-07-05 10:38 | PN_ITS ---
Subjective Subjective Patient seen and examined. Her family was by her bedside. She was extubated overnight and is now on 3 L of oxygen. She denies any shortness of breath, cough, chest pain, palpitations, dizziness, nausea vomiting or any other symptoms. Review of systems otherwise negative. Objective Data Objective Data Vital Signs: Vital Signs Temp Pulse Resp BP Pulse Ox O2 Del Method O2 Flow Rate 98.9 F 64 17 133/55 H 96 Nasal Cannula 3 07/05/23 08:00 07/05/23 08:00 07/05/23 08:00 07/05/23 08:00 07/05/23 09:30 07/05/23 09:30 07/05/23 09:30 FiO2 30 07/05/23 06:00 Oxygen Flow Rate (L/min) 3 Oxygen Delivery Method Nasal Cannula Weight: 131 lb 9.855 oz Body Mass Index (BMI) 23.3 Intake & Output: Intake and Output for Last 24 Hours 07/03/23 07/04/23 07/05/23 23:59 23:59 23:59 Intake Total 2103.33 / 2113.33 2304.8233 / 2342.3233 464.58 / 464.58 Output Total 3500 / 3500 825 / 1825 1200 / 1200 Balance -1396.67 / -1386.67 1479.8233 / 517.3233 -735.42 / -735.42 Lab / Micro Data 07/05/23 05:55 07/05/23 05:55 Labs: Laboratory Results - last 24 hr 07/01/23 06:20: Crossmatch See Detail 07/02/23 05:26: Diff Path Review Reviewed 07/03/23 04:05: Diff Path Review Reviewed 07/03/23 10:45: B-Natriuretic Peptide 888.9 H 07/04/23 08:30: B-Natriuretic Peptide 288.8 H 07/05/23 05:55: WBC 12.5 H, RBC 3.28 L, Hgb 9.3 L, Hct 29.5 L, MCV 89.9, MCH 28.4, MCHC 31.5 L, RDW Std Deviation 52.2 H, RDW Coeff of Polo 15.7 H, Plt Count 293, MPV 9.9, Immature Gran % (Auto) 0.600, Neut % (Auto) 79.6 H, Lymph % (Auto) 6.9 L, [place] % (Auto) 11.3 H, Eos % (Auto) 1.4, Baso % (Auto) 0.2, Absolute Neuts (auto) 10.0 H, Absolute Lymphs (auto) 0.87, Nucleated RBC % 0, Sodium 147 H, P otassium 3.2 L, Chloride 114 H, Carbon Dioxide 28.0, Anion Gap 5, BUN 20 H, Creatinine 0.89, Estim Creat Clear Calc 40.31, Est GFR (MDRD) Af Amer 78, Est GFR (MDRD) Non-Af 65, BUN/Creatinine Ratio 22.5 H, Glucose 110 H, Calcium 7.5 L Micro: Microbiology 07/03/23 15:45 Sputum, Induced/Lukens Gram Stain - Final 07/03/23 15:45 Sputum, Induced/Lukens Respiratory Culture - Final Culture exhibits no growth. 07/03/23 06:45 Urine Catheter - Kay Urine Culture - Final Culture exhibits no growth. 07/03/23 08:27 Mucosa - Nasopharyngeal Coronavirus COVID-19 PCR - Final Physical Exam Const alert, oriented x3, no apparent distress and average body habitus General Appearance: cooperative HEENT normocephalic, head/scalp atraumatic, hearing grossly normal bilaterally and nasal mucous membranes and turbinates normal Eyes PERRL, EOMs intact bilaterally and conjunctivae normal Neck full ROM, no lymphadenopathy and supple Lymph Lymphatic: no lymphadenopathy noted and no lymphedema noted Chest inspection of chest normal Resp normal respiratory effort, normal air movement, no use of accessory muscles and clear to auscultation bilaterally Resp Narrative: Extubated to 3 L of oxygen by nasal cannula. Cardio regular rate, regular rhythm, S1 normal heart sound, S2 normal heart sound, no murmurs and peripheral pulses 2+ throughout GI normal to inspection, nondistended, normoactive bowel sounds, soft to palpation, non-tender and non-distended Extremity no clubbing, cyanosis or edema and no calf tenderness Skin no rashes or lesions noted Skin Narrative: Intact dressing over surgical site. Neuro CN's II-XII intact bilaterally, no focal motor deficits and no sensory deficits noted Motor Exam: general weakness Psych mental status grossly normal and cooperative Appearance: appropriate Assessment & Plan Assessment/Plan (1) History of left hip hemiarthroplasty: (2) Acute hypoxemic respiratory failure: PLAN: Plan #Acute hypoxic respiratory failure * extubated to 3L of oxygen by nasal canula * Currently on empiric antibiotics.- IV vancomycin and cefepime. * continue gentle diuresis * breathing treatment with bronchodilators. Titrate oxygen to maintain sats >90% #Left displaced subcapital femoral neck fracture * S/p left direct anterior hip hemiarthroplasty. Surgery was initially consulted due to hypoxia. Subsequently had surgery on 07/03/2023. * Remains intubated. * PT OT on board. * Fall precautions. #Hypokalemia: Potassium is 3.2. Replace and trend. #Hypernatremia: Sodium is 147. Will monitor and if continues to trend upwards will give D5 water. #History of CAD s/p stents: Plavix on hold. On statin. Cardiology did see patient for preop cardiac risk stratification. #Paroxysmal A-fib: On amiodarone and Coreg. eliquis resumed. #History of CAD s/p stents: Plavix on hold. On statin. #History of CKD stage IIIb: Creatinine at her baseline. Will monitor. # Hypothyroidism: On Synthroid #Hypertension: On amlodipine and Coreg. Losartan held due to elevated creatinine. #Hyperlipidemia: on statin #Depression; on sertraline. On melatonin. DVT prophylaxis;eliquis resumed. Charges/Coding Visit Charges Inpatient E&M: 93988 Subs Hosp L2
[2023-07-05 14:03] LABS: Procalcitonin 0.19 ng/mL (0.00-0.09)
[2023-07-05] MEDS: Acetaminophen 500 MG Tablet 1000 MG PO ×2 (14:27→21:04)
--- NOTE | 2023-07-05 16:12 | CASEMGMT ---
Social Work SW met with pt and dgt in law [facility]. SW spoke with pt regarding discharge plan and pt is agreeable that SNF is needed at time of dc. SW updated pt that family is choosing TCU. Pt agrees that this is her preference as well. Referral sent to Jennifer in TCU. TCU is able to accept pt as long as no medical changes. Pt and dgt in law updated. Plan: TCU, when medically ready BRICE Mcgregor
[2023-07-05] MEDS: Pravastatin 80 MG Tablet PO (21:05)
[2023-07-05] MEDS: Neomycin/Polymyxin/Dexameth 5ML OPTH.BTL 1 DRP OPHTHALMIC (21:05)
[2023-07-06] VITALS (12 sets, daily range): BP systolic 102–135; BP diastolic 42–71; PULSE 54–69; RESP 13–20; TEMP 36.4–36.8; O2SAT 90–97; BMI 23.1
[2023-07-06] MEDS: Acetaminophen 500 MG Tablet 1000 MG PO (05:02)
[2023-07-06] MEDS: Levothyroxine 112 MCG Tablet PO (05:02)
[2023-07-06] MEDS: Neomycin/Polymyxin/Dexameth 5ML OPTH.BTL 1 DRP OPHTHALMIC (05:03)
[2023-07-06 05:17] LABS: Absolute Lymphocyte Count 1.17 X10^3/uL (0.83-4.51); Absolute Neutrophil Count 12.6 X10^3/uL (2.0-7.7); Basophil# 0.05 X10^3/uL; Basophil% 0.3 % (0-1); Eosinophil# 0.53 X10^3/uL; Eosinophils% 3.3 % (0-5); Hemoglobin 9.4 g/dL (12.0-15.0); Lymphocyte # 1.17 X10^3/ul (0.83-4.51); Lymphocyte % 7.2 % (19-41); Mean Corp Hgb Conc 30.3 g/dL (32-36); Mean Corpuscular Hgb 27.6 pg (27.0-32.0); Mean Corpuscular Volume 91.2 fL (81-99); Mean Platelet Vol. 9.9 fl (6.2-12.0); Monocyte# 1.67 X10^3/uL; Monocyte% 10.3 % (0-10); NRBC Flagged by Analyzer 0.2 % (0-5); Neutrophil # 12.59 X10^3/uL (2.7-7.7); POSITIVE DIFFERENTIAL YES; Platelet Count 299 K/mm3 (150-450); RBC Distribution Width CV 15.9 % (11.6-14.6); RBC Distribution Width SD 52.6 fl (35.1-43.9); White Blood Count 16.2 K/mm3 (4.4-11.0)
[2023-07-06 05:31] LABS: Anion Gap 5 (5-15); BUN 26 mg/dL (7-18); BUN/Creat Ratio 32.1 RATIO (10-20); Calcium,Total 7.5 mg/dL (8.5-10.1); Chloride 110 mmol/L (98-107); Creatinine, Serum 0.81 mg/dL (0.55-1.02); EST Glomerular Filtration Rate 72 mL/min (>60); Est Glom Filt Rate - Afr Amer 87 mL/min (>60); Glucose 125 mg/dL (74-106); Potassium 3.6 mmol/L (3.5-5.1); Sodium Level 143 mmol/L (136-145)
[2023-07-06 06:34] LABS: Differential Comment SCANNED; Differential Indicated SCAN CRITERIA MET
--- NOTE | 2023-07-06 06:46 | PCM.PN.INT ---
Assessment & Plan Assessment/Plan (1) Acute hypoxemic respiratory failure: PLAN: Plan RECOMMENDATIONS: 1. Supplemental oxygen to maintain saturations at or above 90%. 2. Ongoing diuresis as tolerated by hemodynamics and renal function. 3. Encourage incentive spirometer use and mobilize patient as tolerated. 4. The patient is medically stable for transfer out of the intensive care unit. 5. Will sign off from a critical care perspective. Please call with any additional questions. IMPRESSIONS: 1. Acute hypoxemic respiratory failure Clinical concern for hypervolemia as precipitating etiology, with lower suspicion for pneumonia. With invasive mechanical ventilatory support and gentle diuresis, the patient has improved from a respiratory perspective. The patient was ultimately able to be extubated on July 04. Infectious workup has been unrevealing today. Therefore, antibiotics were discontinued. Recommend continuing gentle diuresis as tolerated by hemodynamics and renal function. Encourage incentive spirometer use and mobilize patient as tolerated. The patient has already been resumed on Eliquis. 2. Left hip fracture, now POD #3 status post left direct anterior hip hemiarthroplasty Continue routine postoperative care per orthopedic surgery recommendations. 3. Anemia Continue to monitor blood counts and transfuse if hemoglobin drops below 7 g/dL. PPI therapy will be continued. 4. History of atrial fibrillation/flutter on home Eliquis/coronary artery disease/heart failure with preserved ejection fraction Continue amiodarone per baseline regimen. 5. Advanced age/hypothyroidism/hypertension/GERD/hyperlipidemia Complicates care, management, recovery and prognosis. Continue PPI therapy. Physical therapy to work with the patient. This note was generated with [employer] dictation software. It may contain incorrect words, spelling, and punctuation that were not noted in checking the note before signing. Subjective Subjective The patient was seen and examined at the bedside this morning. Events from the last 24 hours have been reviewed. The patient is currently afebrile, hemodynamically stable and maintaining appropriate oxygen saturations on 4 L/min via nasal cannula. No overnight events were reported by the nursing staff. White count is elevated at 16,000. Creatinine remains within normal limits. Objective Data Objective Data The patient's most recent lab work, culture data and imaging studies have all been personally reviewed. Surface echocardiogram demonstrated mild concentric LVH with an ejection fraction of 60% and stage II diastolic dysfunction. Right ventricular systolic pressure was estimated to be 49 mmHg. Sputum culture has not demonstrated any growth to date. Vital Signs: Vital Signs Temp Pulse Resp BP Pulse Ox O2 Del Method O2 Flow Rate 97.6 F L 62 14 126/55 H 94 Nasal Cannula 4 07/06/23 00:00 07/06/23 06:00 07/06/23 06:00 07/06/23 06:00 07/06/23 06:00 07/06/23 06:00 07/06/23 06:00 FiO2 4 07/06/23 01:00 Oxygen Flow Rate (L/min) 4 Oxygen Delivery Method Nasal Cannula Weight: 130 lb 8.218 oz Body Mass Index (BMI) 23.1 Intake & Output: Intake and Output for Last 24 Hours 07/04/23 07/05/23 07/06/23 23:59 23:59 23:59 Intake Total 2304.8233 / 2342.3233 564.58 / 564.58 Output Total 825 / 1825 1900 / 1900 175 / 175 Balance 1479.8233 / 517.3233 -1335.42 / -1335.42 -175 / -175 Lab / Micro Data Attestation: I reviewed the patient's lab results. 07/06/23 05:00 07/06/23 05:00 Labs: Laboratory Results - last 24 hr 07/02/23 05:26: Diff Path Review Reviewed 07/03/23 04:05: Diff Path Review Reviewed 07/04/23 08:30: Procalcitonin 0.19 H 07/06/23 05:00: WBC 16.2 H, RBC 3.40 L, Hgb 9.4 L, Hct 31.0 L, MCV 91.2, MCH 27.6, MCHC 30.3 L, RDW Std Deviation 52.6 H, RDW Coeff of [place] 15.9 H, Plt Count 299, MPV 9.9, Immature Gran % (Auto) 0.900, Neut % (Auto) 78.0 H, Lymph % (Auto) 7.2 L, [place] % (Auto) 10.3 H, Eos % (Auto) 3.3, Baso % (Auto) 0.3, Absolute Neuts (auto) 12.6 H, Absolute Lymphs (auto) 1.17, Nucleated RBC % 0.2, Differential Comment SCANNED, Diff Path Review May , Sodium 143, Potassium 3.6, Chloride 110 H, Carbon Dioxide 28.0, Anion Gap 5, BUN 26 H, Creatinine 0.81, Estim Creat Clear Calc 44.30, Est GFR (MDRD) Af Amer 87, Est GFR (MDRD) Non-Af 72, BUN/Creatinine Ratio 32.1 H, Glucose 125 H, Calcium 7.5 L Micro: Microbiology 07/03/23 15:45 Sputum, Induced/Lukens Gram Stain - Final 07/03/23 15:45 Sputum, Induced/Lukens Respiratory Culture - Final Culture exhibits no growth. 07/03/23 06:45 Urine Catheter - Kay Urine Culture - Final Culture exhibits no growth. 07/03/23 08:27 Mucosa - Nasopharyngeal Coronavirus COVID-19 PCR - Final ABG Data ABG results: ABG 07/03/23 07/04/23 15:32 05:49 Specimen Type ART ART Sample Site Art Line R Radial pH 7.67 H* 7.47 H Bicarbonate Actual 20.3 L 26.6 H Total CO2 21 28 Base Excess 0 3 H O2 Saturation 99 93 L O2 % 40.0 40.0 ABG pCO2 17.8 L* 36.5 ABG pO2 101 H 63 L Que Test Positive Respiration Rate 24 15 O2 Delivery Device Adult Vent Adult Vent Vent Mode AC AC Tidal Volume 450.0 400.0 POC PEEP 8 5 Crit Call To/Read Back Yes Radiography Diagnostic Testing: Radiology Impression Chest CTA 07/03/23 10:08 IMPRESSION: CTA chest examination, without a demonstrated pulmonary embolism or arterial dissection. Bilateral edema or pneumonia and pleural effusions. Electronically Signed: Ervin Ramirez MD at 12:50 EDT , Chest X-Ray 07/03/23 12:35 IMPRESSION: Endotracheal tube and feeding tube placement. Bilateral edema or infiltrates and small effusions. Electronically Signed: Ervin Ramirez MD at 15:19 EDT , KUB X-Ray 05/12/24 12:35 IMPRESSION: Feeding tube extends to the stomach. Electronically Signed: Ervin Ramirez MD at 15:01 EDT , Hip X-Ray 07/03/23 17:00 IMPRESSION: Fluoroscopic assistance images were obtained. Dictation for documentation purposes only. Electronically Signed: Greg Heart MD at 18:43 EDT , Physical Exam Const alert, oriented x3 and no apparent distress Constitutional Narrative: Sitting in bedside recliner. General Appearance: cooperative HEENT normocephalic, head/scalp atraumatic and moist oral mucous membranes Eyes PERRL, EOMs intact bilaterally and conjunctivae normal Neck supple General: trachea midline Chest inspection of chest normal Resp normal respiratory effort Auscultation: Negative for rales, rhonchi or wheezes Cardio regular rate and regular rhythm GI normal to inspection, nondistended, normoactive bowel sounds Extremity no clubbing, cyanosis or edema Skin no rashes or lesions noted Neuro oriented x3, CN's II-XII intact bilaterally and moves all extremities Psych cooperative and affect normal Charges/Coding Visit Charges Inpatient E&M: 71884 Subs Hosp L3
[2023-07-06] MEDS: Amiodarone 200 MG Tablet PO (08:02)
[2023-07-06] MEDS: Aspirin 81 MG TAB.CHEW PO (08:02)
[2023-07-06] MEDS: Sertraline 50 MG Tablet PO (08:02)
[2023-07-06] MEDS: APIXABAN 2.5 MG TABLET (WCH) PO (08:02)
[2023-07-06] MEDS: Furosemide 20 MG/2 ML VIAL IV (08:03)
[2023-07-06] MEDS: Pantoprazole Sodium 20 MG Tablet PO (08:03)
[2023-07-06] MEDS: Ezetimibe 10 MG Tablet PO (08:03)
--- NOTE | 2023-07-06 09:47 | TREXTCAR_ITS ---
Diet Diet Order/Speech Therapy: 07/05/23 09:05 Diet: Regular - General Is pt able to select menu?: Yes Diet Comments: chocolate milk w/ meals; give yoplait whipped yogut w/ meals as available Routine Orders/Code Status Enema Type: Fleetz Enema Frequency: Daily PRN Suppository Type: Dulcolax 10mg Suppository Frequency: Daily PRN O2 Frequency: PRN Keep PO Greater than or Equal to (%): 90 Wound(s) lt hip: Wound Type: Surgical Incision right arm: Wound Type: infiltration Therapies Weight Bearing: Weight bearing as tolerated Physical Therapy: Eval and Treat Occupational Therapy: Eval and Treat Problem/Diagnosis (1) Acute hypoxemic respiratory failure: Status: Acute Code(s): J96.01 - Acute respiratory failure with hypoxia Plan #Acute hypoxic respiratory failure * extubated to 3L of oxygen by nasal canula * Currently on empiric antibiotics.- IV vancomycin and cefepime. * continue gentle diuresis * breathing treatment with bronchodilators. Titrate oxygen to maintain sats >90% #Left displaced subcapital femoral neck fracture * S/p left direct anterior hip hemiarthroplasty. Surgery was initially consulted due to hypoxia. Subsequently had surgery on 07/03/2023. * Remains intubated. * PT OT on board. * Fall precautions. #Hypokalemia: Potassium is 3.2. Replace and trend. #Hypernatremia: Sodium is 147. Will monitor and if continues to trend upwards will give D5 water. #History of CAD s/p stents: Plavix on hold. On statin. Cardiology did see patient for preop cardiac risk stratification. #Paroxysmal A-fib: On amiodarone and Coreg. eliquis resumed. #History of CAD s/p stents: Plavix on hold. On statin. #History of CKD stage IIIb: Creatinine at her baseline. Will monitor. # Hypothyroidism: On Synthroid #Hypertension: On amlodipine and Coreg. Losartan held due to elevated creatinine. #Hyperlipidemia: on statin #Depression; on sertraline. On melatonin. DVT prophylaxis;eliquis resumed. Allergies/Procedures Done in Hospital Allergies lisinopril Adverse Reaction (Intermediate, Verified 06/30/23 13:50) Cough Procedures: None Type of Care/Length of Stay Estimated LOS: Convalescent Care Less Than 30 days Type of Care Needed: Skilled Rehab Potential: Fair Prognosis: Fair Additional Orders/Day of Discharge Day of Discharge: 07/06/23 Dietary and Speech Recommendations Dietitian Recommendations/Changes: regular diet as tolerated; will adjust diet/add ONS at time of follow up as indicated Discharge Plan Admission Admit Date/Time: 06/30/23 16:52 Primary Reason for Your Visit: left hip fracture Attending Provider: Anali Mcmillan Primary Care Provider: Kenji Osei Consulting Providers: Shade Norton; Kaveh Benedict; Reji Trivedi; Reji Saravia Instructions Patient Instructions: Hip Fx Surg Dc Discharge Orders/Prescriptions Prescriptions: Continued sertraline 50 mg tablet 50 mg PO DAILY Eliquis 2.5 mg tablet 2.5 mg PO Q12H omeprazole 20 mg capsule,delayed release(DR/EC) 20 mg PO DAILY Patient Comments: STOMACH MEDICINE, ACID REFLUX hydroxyzine HCl 50 mg tablet 50 mg PO QHS PRN (Reason: Sleep) Patient Comments: TAKE 1 TABLET BY MOUTH AT BEDTIME NEEDED FOR ANXIETY/INSOMNIA melatonin 10 mg tablet 10 mg PO QHS losartan 50 mg Tablet 50 mg PO BID acetaminophen [Tylenol] 325 mg Tablet 650 mg PO Q6H PRN (Reason: Pain) clopidogrel 75 mg tablet 75 mg PO DAILY pravastatin 80 mg Tablet 80 mg PO DAILY ondansetron 4 mg tablet,disintegrating 4 mg PO Q8H PRN PRN (Reason: Nausea) Qty: 14 0RF carvedilol 6.25 mg tablet 3.125 mg PO BID amlodipine 5 mg tablet 5 mg PO DAILY levothyroxine 112 mcg tablet 112 mcg PO DAILY ezetimibe 10 mg tablet 10 mg PO DAILY tramadol 50 mg tablet 50 mg PO TID PRN (DME) Handicap placard See Rx Instructions .Route .MEDSUPPLY Qty: 1 0RF Rx Instructions: Lifetime nitroglycerin 0.4 mg tablet, sublingual 0.4 mg SUBLINGUAL Q5M PRN (Reason: Chest Pain) Qty: 25 1RF amiodarone 200 mg tablet 200 mg PO DAILY Referrals / Follow Up: Reji Trivedi DO [Med Staff - Active Staff] - Within 2 Weeks Kenji Osei MD [Primary Care Provider] - Within 1 Week Disposition Disposition (needs filled in before D/C Order can be placed): [facility]
--- NOTE | 2023-07-06 09:48 | DS.PCM_ITS ---
Providers Date of Admission: 06/30/23 Date of Discharge: 07/06/23 Primary Care Physician: Dr. Kenji Osei MD Consultations 06/30/23 18:22 Consult: Orthopedics Routine Consulting Provider: Reji Trivedi Reason for Consult: left hip fracture EMERGENT Consult: No Notified: Yes Date Notified: 06/30/23 Time Notified: 18:22 Method of Notification: ED Physician Initiated 07/01/23 00:36 Consult: Cardiology Routine Consulting Provider: Kaveh Benedict Reason for Consult: assistance w/ preop eval EMERGENT Consult: No Notified: Yes Date Notified: 07/01/23 Time Notified: 06:20 Method of Notification: Text 07/02/23 11:19 Consult: Hide Buffer / Pulmonary Medicine Routine Consulting Provider: Intensivists/Pulmonary Med Reason for Consult: Acute hypoxia, unclear etiology EMERGENT Consult: No Notified: Yes Date Notified: 07/02/23 Time Notified: 11:19 Method of Notification: Text Method of Consult:: In-Person Reason For Visit: LEFT HIP FRACTURE Diagnosis Discharge Diagnosis (1) Acute hypoxemic respiratory failure: Status: Acute Code(s): J96.01 - Acute respiratory failure with hypoxia Plan #Acute hypoxic respiratory failure * extubated to 3L of oxygen by nasal canula * Currently on empiric antibiotics.- IV vancomycin and cefepime. * continue gentle diuresis * breathing treatment with bronchodilators. Titrate oxygen to maintain sats >90% #Left displaced subcapital femoral neck fracture * S/p left direct anterior hip hemiarthroplasty. Surgery was initially consulted due to hypoxia. Subsequently had surgery on 07/03/2023. * Remains intubated. * PT OT on board. * Fall precautions. #Hypokalemia: Potassium is 3.2. Replace and trend. #Hypernatremia: Sodium is 147. Will monitor and if continues to trend upwards will give D5 water. #History of CAD s/p stents: Plavix on hold. On statin. Cardiology did see patient for preop cardiac risk stratification. #Paroxysmal A-fib: On amiodarone and Coreg. eliquis resumed. #History of CAD s/p stents: Plavix on hold. On statin. #History of CKD stage IIIb: Creatinine at her baseline. Will monitor. # Hypothyroidism: On Synthroid #Hypertension: On amlodipine and Coreg. Losartan held due to elevated creatinine. #Hyperlipidemia: on statin #Depression; on sertraline. On melatonin. DVT prophylaxis;eliquis resumed. Medications at Discharge Home Medications Handicap placard #1 ea 11/19/20 sertraline 50 mg tablet 50 mg PO DAILY ANXIETY 05/06/21 hydroxyzine HCl 50 mg tablet 50 mg PO QHS PRN Sleep 02/09/22 nitroglycerin 0.4 mg sublingual tablet 0.4 mg sublingual Q5M PRN Chest Pain #25 tabs 02/25/22 apixaban 2.5 mg tablet (Eliquis) 2.5 mg PO Q12H blood thinner 04/26/22 melatonin 10 mg tablet 10 mg PO QHS SLEEP 04/26/22 omeprazole 20 mg capsule,delayed release 20 mg PO DAILY GERD 04/26/22 amiodarone 200 mg tablet 200 mg PO DAILY dose reduced at [facility]. 05/04/22 acetaminophen 325 mg tablet (Tylenol) 650 mg PO Q6H PRN Pain 06/13/22 clopidogrel 75 mg tablet 75 mg PO DAILY prevent clots 06/13/22 losartan 50 mg tablet 50 mg PO BID BP 06/13/22 pravastatin 80 mg tablet 80 mg PO DAILY cholesterol 06/13/22 ondansetron 4 mg disintegrating tablet 4 mg PO Q8H PRN PRN Nausea #14 tabs 02/09/23 tramadol 50 mg tablet 50 mg PO TID PRN pain 06/22/23 amlodipine 5 mg tablet 5 mg PO DAILY BP 06/30/23 carvedilol 6.25 mg tablet 3.125 mg PO BID BP/heart rate 06/30/23 ezetimibe 10 mg tablet 10 mg PO DAILY cholesterol 06/30/23 levothyroxine 112 mcg tablet 112 mcg PO DAILY thyroid 06/30/23 Hospital Course Operations - (left hip direct anterior hemiarthroplasty) Procedures 2-D Echocardiogram Summary of Care Provided Minutes Spent on Discharge: 45 Hospital Course: Patient is an 82-year-old female with a past medical history as outlined was admitted through the ED with a complaint of mechanical fall. She had sustained a fall at home and came into the ED where imaging done showed a transverse fracture at the base of the left femoral neck. She was initially admitted and managed for W-2 due to mechanical fall with resultant left femoral neck fracture. Orthopedic surgery was consulted. Cardiology was consulted to help with preop cardiac risk stratification due to known EF of 25% and severe global left ventricular systolic dysfunction from 2D echo done in March 2022. Cardiology was risk stratified at being at moderate risk for the surgical procedure. Her Eliquis and Plavix were held in anticipation of surgery. Prior to surgery, patient was noted to be hypoxic and ABG done and confirmed hypoxia. Patient was transferred to the ICU before the surgery could even be done for further optimization from the lung and cardiac standpoint. Critical care was consulted. She had 2D echo during this admission which showed EF of 60% with mild concentric left ventricular hypertrophy and stage II diastolic dysfunction with RVSP of 49 mmHg and dilated inferior vena cava. CTA of the chest was done which was negative for any evidence of PE. She was diuresed with IV Lasix. She had surgery done on 07/03/2023 and had left direct anterior hip hemiarthroplasty. Postop course was complicated by patient remaining on the ventilator for a couple of days until she was finally extubated. He was extubated to 3 L of oxygen. Patient did well postop and remained stable. Her Eliquis was resumed. She had been started on antibiotics was intubated and also diuresed. Antibiotics were discontinued after she was extubated. She was discharged to halfway facility on 07/06/2023. Her Eliquis has been resumed and she is follow-up with her primary care doctor and with orthopedic surgery within 1 to 2 weeks. Patient was seen and examined prior to discharge. She had no active complaints. She had an uneventful night. Review of systems otherwise negative. Labs and vitals reviewed. Home medication reviewed and reconciled. Physical Exam Const alert, oriented x3, no apparent distress and average body habitus General Appearance: cooperative and comfortable Orientation / Consciousness: awake Exam Limitations: no limitations HEENT normocephalic, head/scalp atraumatic, hearing grossly normal bilaterally and nasal mucous membranes and turbinates normal Mouth: oral and palatal mucosa normal Eyes PERRL, EOMs intact bilaterally and conjunctivae normal Neck full ROM, no lymphadenopathy and supple Lymph Lymphatic: no lymphadenopathy noted and no lymphedema noted Chest inspection of chest normal Resp normal respiratory effort, normal air movement, no use of accessory muscles and clear to auscultation bilaterally Resp Narrative: on 2-3L of oxygen by nasal canula Cardio regular rate, regular rhythm, S1 normal heart sound, S2 normal heart sound, no murmurs and peripheral pulses 2+ throughout GI normal to inspection, nondistended, normoactive bowel sounds, soft to palpation, non-tender and non-distended Extremity normal to inspection, no clubbing, cyanosis or edema and no calf tenderness Skin no rashes or lesions noted Skin Narrative: Intact dressing over surgical site. Neuro oriented x3, CN's II-XII intact bilaterally, moves all extremities, no focal motor deficits and no sensory deficits noted Sensorium / Orientation: awake, alert and oriented to person Speech: speech normal Motor Exam: general weakness Psych mental status grossly normal and cooperative Appearance: appropriate Weight / BMI Weight Weight: 130 lb 8.218 oz Body Mass Index (BMI) 23.1 ABG / Lab / Microbiology Data 07/06/23 05:00 07/06/23 05:00 Laboratory: Laboratory Results - last 24 hr 07/02/23 05:26: Diff Path Review Reviewed 07/03/23 04:05: Diff Path Review Reviewed 07/04/23 08:30: Procalcitonin 0.19 H 07/06/23 05:00: WBC 16.2 H, RBC 3.40 L, Hgb 9.4 L, Hct 31.0 L, MCV 91.2, MCH 27.6, MCHC 30.3 L, RDW Std Deviation 52.6 H, RDW Coeff of Polo 15.9 H, Plt Count 299, MPV 9.9, Immature Gran % (Auto) 0.900, Neut % (Auto) 78.0 H, Lymph % (Auto) 7.2 L, [place] % (Auto) 10.3 H, Eos % (Auto) 3.3, Baso % (Auto) 0.3, Absolute Neuts (auto) 12.6 H, Absolute Lymphs (auto) 1.17, Nucleated RBC % 0.2, Differential Comment SCANNED, Diff Path Review June foll, Sodium 143, Potassium 3.6, Chloride 110 H, Carbon Dioxide 28.0, Anion Gap 5, BUN 26 H, Creatinine 0.81, Estim Creat Clear Calc 44.30, Est GFR (MDRD) Af Amer 87, Est GFR (MDRD) Non-Af 72, B UN/Creatinine Ratio 32.1 H, Glucose 125 H, Calcium 7.5 L Microbiology: Microbiology 07/03/23 15:45 Sputum, Induced/Lukens Gram Stain - Final 07/03/23 15:45 Sputum, Induced/Lukens Respiratory Culture - Final Culture exhibits no growth. 07/03/23 06:45 Urine Catheter - Kay Urine Culture - Final Culture exhibits no growth. 07/03/23 08:27 Mucosa - Nasopharyngeal Coronavirus COVID-19 PCR - Final D/C Instructions Discharge Diet: Low fat / Low cholesterol Discharge Activity: Return to Normal Activity Weight Bearing Status: Weight bearing as tolerated Call your doctor if you observe: Fever of 101 or Higher, Shortness of breath, Dizziness, Swelling in the ankles and Chest pain Meaningful Use Info Meaningful Use Meaningful Use Diagnoses (Choose all that apply): None applicable Ischemic Stroke Statin Dosing Therapy Reference: STATIN DOSE THERAPY REFERENCE: * Patients > 75 years receive moderate or high dose statin therapy. * Patients 75 years or YOUNGER should receive HIGH intensity statin dose unless contraindicated. You will be required to document reason for non-treatment if statin daily dose does not meet guidelines. HIGH DOSE STATIN THERAPY DAILY Atorvastatin > than or = to 40 mg Rosuvastatin > than or = to 20 mg Amlodipine + Atorvastatin > than or = to 2.5/40 mg Ezetimibe + Simvastatin 10/80 mg Simvastatin 80mg Discharge Plan Admission Admit Date/Time: 06/30/23 16:52 Primary Reason for Your Visit: left hip fracture Attending Provider: Anali Mcmillan Primary Care Provider: Kenji Osei Consulting Providers: Shade Norton; Kaveh Benedict; Reji Trivedi; Reji Saravia Instructions Patient Instructions: Hip Fx Surg Dc Discharge Orders/Prescriptions Prescriptions: Continued sertraline 50 mg tablet 50 mg PO DAILY Eliquis 2.5 mg tablet 2.5 mg PO Q12H omeprazole 20 mg capsule,delayed release(DR/EC) 20 mg PO DAILY Patient Comments: STOMACH MEDICINE, ACID REFLUX hydroxyzine HCl 50 mg tablet 50 mg PO QHS PRN (Reason: Sleep) Patient Comments: TAKE 1 TABLET BY MOUTH AT BEDTIME NEEDED FOR ANXIETY/INSOMNIA melatonin 10 mg tablet 10 mg PO QHS losartan 50 mg Tablet 50 mg PO BID acetaminophen [Tylenol] 325 mg Tablet 650 mg PO Q6H PRN (Reason: Pain) clopidogrel 75 mg tablet 75 mg PO DAILY pravastatin 80 mg Tablet 80 mg PO DAILY ondansetron 4 mg tablet,disintegrating 4 mg PO Q8H PRN PRN (Reason: Nausea) Qty: 14 0RF carvedilol 6.25 mg tablet 3.125 mg PO BID amlodipine 5 mg tablet 5 mg PO DAILY levothyroxine 112 mcg tablet 112 mcg PO DAILY ezetimibe 10 mg tablet 10 mg PO DAILY tramadol 50 mg tablet 50 mg PO TID PRN (DME) Handicap placard See Rx Instructions .Route .MEDSUPPLY Qty: 1 0RF Rx Instructions: Lifetime nitroglycerin 0.4 mg tablet, sublingual 0.4 mg SUBLINGUAL Q5M PRN (Reason: Chest Pain) Qty: 25 1RF amiodarone 200 mg tablet 200 mg PO DAILY Referrals / Follow Up: Reji Trivedi DO [Med Staff - Active Staff] - Within 2 Weeks Kenji Osei MD [Primary Care Provider] - Within 1 Week Disposition Disposition (needs filled in before D/C Order can be placed): Group Home Facility Charges/Coding Visit Charges Inpatient E&M: 69267 Disch Hosp >30min
--- NOTE | 2023-07-06 11:49 | CASEMGMT ---
Social Work Physician updated that TCU can admit pt when pt is medically ready. Per physician, pt is ready for dc today. DC orders faxed to TCU. VM left with pt's DIL Nya Cameron notifying of dc to TCU today. SW met with pt and updated on dc plan. Pt is agreeable. Nursing made aware. Disposition: TCU, skilled level of care BRICE Mcgregor
--- NOTE | 2023-07-06 12:24 | PN.ORTHO_ITS ---
Subjective Subjective Patient sitting at bedside. Patient states her pain is very well-managed. Patient is very happy she is being transferred to TCU. She has no complaint of chest pain, shortness of breath, calf pain, nausea vomiting. No other complaints at this time. Objective Data Objective Data Vital Signs: Vital Signs Temp Pulse Resp BP Pulse Ox O2 Del Method O2 Flow Rate 98.3 F 54 L 13 102/42 L 96 Nasal Cannula 4 07/06/23 10:00 07/06/23 11:00 07/06/23 11:00 07/06/23 11:00 07/06/23 11:00 07/06/23 11:00 07/06/23 11:00 FiO2 4 07/06/23 07:00 Oxygen Flow Rate (L/min) 4 Oxygen Delivery Method Nasal Cannula Weight: 59.2 kg Body Mass Index (BMI) 23.1 Intake & Output: Intake and Output for Last 24 Hours 07/04/23 07/05/23 07/06/23 23:59 23:59 23:59 Intake Total 2304.8233 / 2342.3233 564.58 / 564.58 Output Total 825 / 1825 1900 / 1900 375 / 375 Balance 1479.8233 / 517.3233 -1335.42 / -1335.42 -375 / -375 Lab / Micro Data 07/06/23 05:00 07/06/23 05:00 Labs: Laboratory Results - last 24 hr 07/04/23 08:30: Procalcitonin 0.19 H 07/06/23 05:00: WBC 16.2 H, RBC 3.40 L, Hgb 9.4 L, Hct 31.0 L, MCV 91.2, MCH 27.6, MCHC 30.3 L, RDW Std Deviation 52.6 H, RDW Coeff of Polo 15.9 H, Plt Count 299, MPV 9.9, Immature Gran % (Auto) 0.900, Neut % (Auto) 78.0 H, Lymph % (Auto) 7.2 L, [place] % (Auto) 10.3 H, Eos % (Auto) 3.3, Baso % (Auto) 0.3, Absolute Neuts (auto) 12.6 H, Absolute Lymphs (auto) 1.17, Nucleated RBC % 0.2, Differential Comment SCANNED, Diff Path Review May foll, Sodium 143, Potassium 3.6, Chloride 110 H, Carbon Dioxide 28.0, Anion Gap 5, BUN 26 H, Creatinine 0.81, Estim Creat Clear Calc 44.30, Est GFR (MDRD) Af Amer 87, Est GFR (MDRD) Non-Af 72, B UN/Creatinine Ratio 32.1 H, Glucose 125 H, Calcium 7.5 L Micro: Microbiology 07/03/23 15:45 Sputum, Induced/Lukens Gram Stain - Final 07/03/23 15:45 Sputum, Induced/Lukens Respiratory Culture - Final Culture exhibits no growth. 07/03/23 06:45 Urine Catheter - Kay Urine Culture - Final Culture exhibits no growth. 07/03/23 08:27 Mucosa - Nasopharyngeal Coronavirus COVID-19 PCR - Final Physical Exam Narrative Exam, I found the patient sitting comfortably bedside in the chair. She was alert oriented. Patient has nasal cannula in place. She is speaking in full sentences. Full range of motion the upper extremities without limitations. The dressing on the anterior left hip is clean dry intact. She has good motion of left hip with minimal discomfort. Good flexion extension of bilateral knees. No calf tenderness. Neurovascular is otherwise intact. Const alert and oriented x3 General Appearance: cooperative HEENT normocephalic Eyes PERRL Resp normal respiratory effort Extremity normal capillary refill Skin no rashes or lesions noted Neuro CN's II-XII intact bilaterally Psych mental status grossly normal Assessment & Plan Assessment/Plan (1) History of left hip hemiarthroplasty: PLAN: 1. Continue all pain medications as prescribed 2. Continue anticoagulation as directed by medicine for postop DVT prophylaxis 3. Medicine will continue to medically manage 4. Continue ice left hip 5. Continue SCDs 6. Ambulate with use of a walker and assistance weight-bear as tolerated 7. Sutures can be removed on 07/15/2023 8. Shower 07/07/2023 9. Follow-up with Dr. Sanchez in 2 weeks contact office for appointment
[2023-07-07 10:14] LABS: Pathologist Review Reviewed
== END 2023-07-06 12:30 | disposition skilled nursing facility (03) | DRG 521 ==
LOC: ED 17:53 → MS3 07-01 06:36 → ICU 07-03 15:53 → MS3 07-04 07:25
PROVIDERS: Anesthesiology; Family Medicine; Internal Medicine; Internal Medicine Cardiovascular Disease; Internal Medicine Critical Care Medicine; Internal Medicine Pulmonary Disease; Physician Assistant; Specialist; Admitting Provider Hospitalist; Emergency Provider Student in an Organized Health Care Education/Training Program; PCP Internal Medicine; Referring Provider Hospitalist; Visit Provider Student in an Organized Health Care Education/Training Program
PROC: 5A09357 Assistance with Respiratory Ventilation, Less than 24 Consecutive Hours, Continuous Positive Airway Pressure (ICD-10-PCS; CPT 27125; principal; 2023-07-02 09:40)
PROC: 0SRS01A Replacement of Left Hip Joint, Femoral Surface with Metal Synthetic Substitute, Uncemented, Open Approach (ICD-10-PCS; CPT 27125; principal; 2023-07-03 16:30)
DX: S72.042A Displaced fracture of base of neck of left femur, initial encounter for closed fracture (principal); J96.01 Acute respiratory failure with hypoxia; E87.0 Hyperosmolality and hypernatremia; I48.92 Unspecified atrial flutter; I24.89 Other forms of acute ischemic heart disease; N18.32 Chronic kidney disease, stage 3b; I48.0 Paroxysmal atrial fibrillation; I12.9 Hypertensive chronic kidney disease with stage 1 through stage 4 chronic kidney disease, or unspecified chronic kidney disease; E03.9 Hypothyroidism, unspecified; F32.A Depression, unspecified; I25.10 Atherosclerotic heart disease of native coronary artery without angina pectoris; E78.00 Pure hypercholesterolemia, unspecified; E87.6 Hypokalemia; W01.0XXA Fall on same level from slipping, tripping and stumbling without subsequent striking against object, initial encounter; I25.2 Old myocardial infarction; Z95.5 Presence of coronary angioplasty implant and graft; Z79.01 Long term (current) use of anticoagulants; Z79.02 Long term (current) use of antithrombotics/antiplatelets; Z79.82 Long term (current) use of aspirin; Z79.891 Long term (current) use of opiate analgesic; Z79.899 Other long term (current) drug therapy
CPT/HCPCS: 31500; 31720; 36415; 36569; 36600; 51702; 71045; 71250; 71275; 73502; 74018; 76000; 80048; 81001; 82550; 82803; 83735; 83880; 84100; 84145; 84443; 84478; 84484; 85018; 85025; 85027; 85379; 85610; 86850; 86900; 86901; 86920; 87070; 87086; 87205; 87635; 88305; 88311; 93005; 93306; 94002; 94003; 94660; 94668; 97162; 97166; 97530; 97535; 99252; 99284; C1776; J7030; J7040; J7050; J7120; P9047; Q9967; A4216; G0463; J1940; J2405

== ENCOUNTER 2023-07-06 12:49 | Inpatient (IN) | payer MEDICARE, OTHER, SELFPAY ==
[2023-07-06 13:06] VITALS: BP 111/45; PULSE 52; RESP 18; TEMP 36.1; O2SAT 93; BMI 24.7
--- NOTE | 2023-07-06 17:05 | HP.PCM_ITS ---
HPI - General General Date of Admission: 07/06/23 Date of Service: 07/06/23 Chief Complaint: Here for rehabilitation. HPI Narrative 06/30/2023 EVENS ORDOÑEZ, is a 82 Female who presents to [facility] ED with fall. Fell on left side at home, unable to stand 2/2 left hip pain. No head injury, no LOC. History chronic low back pain, back spasms, sees Dr. Gonzales. No bowel or bladder issues. Pulsox 88% on RA, oxygen 3 liters applied. X-ray showed left hip fracture, Chest X-ray negative. WBC 16, BUN 19, Creatinine 1.14. IV fluids, pain medications given, Kay placed. 06/30/2023 Admit [facility]. Hold Eliquis, Hold Plavix, prepare for surgery. Tylenol, Oxycodone, Dilaudid, PT/OT for left hip fracture. 07/01/2023 Doing well, pain controlled. Cardiology states patient at moderate risk for planned surgery. 07/02/2023 Pain controlled. 07/02/2023 Echo Mild concentric LVH. EF 60%. Stage 1 diastolic dysfunction. RVSP 49mm HG. 07/03/2023 Airvo for hypoxia, surgery cancelled. covid negative. 07/03/2023 Patient intubated for worsening respiratory failure. 07/03/2023 Dr. Sanchez performed left direct anterior hip hemiarthroplasty. 07/04/2023 Intubated. Vancomycin, Cefepime IV, gentle diuresis for respiratory failure. PT/OT debility. 07/05/2023 Extubated, oxygn 3 liters. Vancomycin, Cefepime, gentle diuresis, nebulizers for ARF with hypoxia. 07/06/2023 Admit to TCU with debility, here for rehabilitation, strengthening, prior to discharge home alone. [facility] Medical History (Updated 07/06/23 @ 17:[address] 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 Ischemic cardiomyopathy Abnormal ECG Abnormal serum enzyme level NSTEMI (non-ST elevation myocardial infarction) Angina pectoris Chest pain Hypothyroidism Home Medications ?Medication ?Instructions ?Recorded ?Last Taken ?Type Handicap placard #1 ea 11/19/20 Unknown Rx sertraline 50 mg tablet 50 mg PO DAILY ANXIETY 05/06/21 06/30/23 History hydroxyzine HCl 50 mg tablet 50 mg PO QHS PRN Sleep 02/09/22 02/08/22 History nitroglycerin 0.4 mg sublingual 0.4 mg sublingual Q5M PRN Chest 02/25/22 04/20/22 04:30 Rx tablet Pain #25 tabs apixaban 2.5 mg tablet (Eliquis) 2.5 mg PO Q12H blood thinner 04/26/22 06/30/23 History melatonin 10 mg tablet 10 mg PO QHS SLEEP 04/26/22 06/29/23 History omeprazole 20 mg capsule,delayed 20 mg PO DAILY GERD 04/26/22 06/30/23 History release amiodarone 200 mg tablet 200 mg PO DAILY dose reduced at 05/04/22 06/30/23 History [facility]. acetaminophen 325 mg tablet 650 mg PO Q6H PRN Pain 06/13/22 Unknown History (Tylenol) clopidogrel 75 mg tablet 75 mg PO DAILY prevent clots 06/13/22 06/30/23 History losartan 50 mg tablet 50 mg PO BID BP 06/13/22 06/30/23 History pravastatin 80 mg tablet 80 mg PO DAILY cholesterol 06/13/22 06/30/23 History ondansetron 4 mg disintegrating 4 mg PO Q8H PRN PRN Nausea #14 tabs 02/09/23 Unknown Rx tablet tramadol 50 mg tablet 50 mg PO TID PRN pain 06/22/23 Unknown History amlodipine 5 mg tablet 5 mg PO DAILY BP 06/30/23 06/30/23 History carvedilol 6.25 mg tablet 3.125 mg PO BID BP/heart rate 06/30/23 06/30/23 History ezetimibe 10 mg tablet 10 mg PO DAILY cholesterol 06/30/23 Unknown History levothyroxine 112 mcg tablet 112 mcg PO DAILY thyroid 06/30/23 06/30/23 History Allergy/AdvReac Type Severity Reaction Status Date / Time lisinopril AdvReac Intermediate Cough Verified 06/30/23 13:50 Family History Mother Breast cancer Myocardial infarction CAD (coronary artery disease) Diabetes Father Myocardial infarction CAD (coronary artery disease) Brother Myocardial infarction Diabetes CAD (coronary artery disease) Sister Breast cancer Hypertension Surgical History History of heart artery stent H/O cardiac catheterization Presence of coronary angioplasty implant and graft (~09/25/13) Social History household members: none Smoking Status: Never smoker alcohol intake: never substance use type: does not use caffeine: No what type of physical activity do you participate in: walking frequency: 3-4 times per week duration: 45-60 minutes/day seatbelt use: always do you feel safe at home: Yes ROS Constitutional Constitutional: Reports weakness; Denies chills, fever(s) or weight gain ENT HEENT: Denies headache(s), nasal congestion or nasal discharge Cardiovascular Cardiovascular: Denies chest pain or palpitations Respiratory/Chest Respiratory/Chest: Denies cough, excessive phlegm production or shortness of breath with exertion Gastrointestinal Gastrointestinal: Denies abdominal pain, nausea or vomiting Genitourinary Genitourinary: Denies dysuria Musculoskeletal Musculoskeletal: Denies joint pain or joint swelling Integumentary Integumentary: Denies rash or wounds Neurologic Neurologic: Denies focal weakness, numbness or tingling Psychiatric Psychiatric: Denies anxiety, auditory hallucinations, depression, homicidal ideation or suicidal ideation Vital Signs Vital Signs Vital Signs: 07/06/23 13:06 07/06/23 13:06 Temperature 97.0 F L Temperature Source Temporal Pulse Rate 52 L 52 L Pulse Rhythm Regular Pulse Strength Normal (2+) Respiratory Rate 18 18 Respiratory Effort Normal Non-Labored Respiratory Depth Normal Respiratory Pattern Normal Blood Pressure 111/45 L Blood Pressure Mean 67 Blood Pressure Source Monitor Blood Pressure Position Semi-Fowlers Blood Pressure Location Right Arm Pulse Ox 93 93 Oxygen Delivery Method Nasal Cannula Nasal Cannula Oxygen Flow Rate (L/min) 2 4 Weight Weight: 63.219 kg Body Mass Index (BMI) 24.7 Physical Exam Const alert General Appearance: cooperative HEENT normocephalic Eyes PERRL and EOMs intact bilaterally Neck supple, no JVD and no carotid bruits Resp normal respiratory effort, normal air movement and clear to auscultation bilaterally Cardio regular rate and regular rhythm GI normal to inspection, nondistended, normoactive bowel sounds, non-tender and non-distended Extremity normal capillary refill General Extremity: Negative for edema Skin no rashes or lesions noted General Skin Exam: no breakdown Psych affect normal Appearance: appropriate Assessment & Plan Assessment/Plan (1) Debility: (2) Closed fracture of left hip: (3) Acute hypoxemic respiratory failure: (4) History of left hip hemiarthroplasty: (5) Chronic back pain: (6) Depression: (7) Coronary artery disease: (8) Atrial flutter: (9) Hypertension: (10) Hyperlipidemia: (11) Hypothyroidism: (12) HFrEF (heart failure with reduced ejection fraction): PLAN: Plan 82 year old female with below past medical history hospitalized for left hip f racture, underwent left hip hemiarthroplasty 07/03/[address] Sanchez, complicated by acute respiratory failure with hypoxia requiring intubation, agitation, admitted to TCU with debility, here for rehabilitation, strengthening, prior to discharge home alone. * Debility - PT/OT. * Pain - Tylenol 1000mg q6 prn pain (1-3), Tramadol 50mg tid prn pain (4-10). * Bowel - senna/colace 1 tablet bid, Dulcolax 10mg pr daily prn. * Adult immunization - Administer pneumonia vaccine, covid vaccine, flu vaccine as appropriate. * DVT prophylaxis - on Eliquis. * Atrial flutter - Coreg 3.125mg bid, Amiodarone 200mg daily, Eliquis 2.5mg q12. * Hypertension - Coreg 3.125mg bid, Amlodipine 5mg daily. * Coronary artery disease - Coreg 3.125mg bid, Losartan 50mg bid, Plavix 75mg daily, Eliquis 2.5mg q12, NTG 0.4mg sl q5m prn. * Hyperlipidemia - Pravastatin 80mg qhs, Zetia 10mg daily. * Insomnia - Melatonin 10mg qhs, Hydroxyzine 50mg qhs prn. * Hypothyroidism - Levothyroxine 112mdcg daily. * Nausea - Zofran odt 4mg q8 prn. * GERD - Pantoprazole 20mg daily. * Depression - Sertraline 50mg daily, stable chronic terminologist use, GDR not recommended.
--- NOTE | 2023-07-06 17:37 | NURSING ---
Patient's [place] removed per orders, no unexpected events.
[2023-07-06 21:45] VITALS: BP 125/50; PULSE 62
[2023-07-06] MEDS: Senna/Docusate Sodium 1 Tablet PO (21:53)
[2023-07-06] MEDS: APIXABAN 2.5 MG TABLET (WCH) PO (21:53)
[2023-07-06] MEDS: Losartan Potassium 50 MG Tablet PO (21:53)
[2023-07-06] MEDS: Carvedilol 3.125 MG TABLET PO (21:53)
[2023-07-06] MEDS: MELATONIN 10 MG TABLET PO (21:53)
[2023-07-06] MEDS: Pravastatin 80 MG Tablet PO (21:53)
[2023-07-06] MEDS: Acetaminophen 500 MG Tablet 1000 MG PO (21:57)
--- NOTE | 2023-07-07 02:00 | NURSING ---
no void since [place] removed, patient reports bladder proplapse hx, unable to obtain accurate bladder scan x2 nurse attempts. patient voids 50mL in BSC. Straight cath per policy with sterile technique maintained with patient consent, second RN present to assist. 200 clear remberto urine drained from bladder. No distress observed or reported. Rectal suppository for constipation as ordered, patient states I havent been able to move my bowels in 4 or 5 days, patient tolerates well. Repositioned x2 staff assist to promote comfort. Denies requests. Call light in reach.
[2023-07-07] MEDS: Bisacodyl 10 MG Suppository RC (03:07)
[2023-07-07] MEDS: Levothyroxine 112 MCG Tablet PO (06:13)
[2023-07-07 08:20] LABS: Anion Gap 4 (5-15); BUN 32 mg/dL (7-18); BUN/Creat Ratio 34.8 RATIO (10-20); Calcium,Total 7.9 mg/dL (8.5-10.1); Chloride 107 mmol/L (98-107); Creatinine, Serum 0.92 mg/dL (0.55-1.02); EST Glomerular Filtration Rate 62 mL/min (>60); Est Glom Filt Rate - Afr Amer 75 mL/min (>60); Estimated Creatinine Clearance 42.22 ml/min; Glucose 118 mg/dL (74-106); Potassium 3.6 mmol/L (3.5-5.1); Sodium Level 138 mmol/L (136-145)
[2023-07-07] MEDS: Acetaminophen 500 MG Tablet 1000 MG PO ×2 (09:04→23:36)
[2023-07-07] MEDS: Amiodarone 200 MG Tablet PO (09:07)
[2023-07-07] MEDS: Pantoprazole Sodium 20 MG Tablet PO (09:07)
[2023-07-07] MEDS: Ezetimibe 10 MG Tablet PO (09:07)
[2023-07-07] MEDS: APIXABAN 2.5 MG TABLET (WCH) PO ×2 (09:07→23:33)
[2023-07-07] MEDS: Sertraline 50 MG Tablet PO (09:07)
[2023-07-07] MEDS: Clopidogrel Bisulfate 75 MG Tablet PO (09:07)
[2023-07-07] MEDS: Senna/Docusate Sodium 1 Tablet PO ×2 (09:07→23:37)
[2023-07-07 10:00] VITALS: O2SAT 4
--- NOTE | 2023-07-07 11:06 | NURSING ---
Manager Book Note; Activity Asset: Cuauhtemoc Gallego is independent in her choice of daily activities. She enjoys word search, reading or spending time w/family. She will play Stylect when available. Staff will encourage group activities, remind her of weekly activities and respect her right to say no.
[2023-07-07] MEDS: Tuberculin,Purif.prot.deriv. 50 TU/ML Vial 0.1 ML ID (11:37)
[2023-07-07] MEDS: traMADol 50 MG Tablet PO (13:20)
[2023-07-07 13:57] VITALS: O2SAT 93
[2023-07-07 14:55] VITALS: BP 106/36; PULSE 85; RESP 16; TEMP 36.6; O2SAT 93
[2023-07-07 23:23] VITALS: BP 145/49; PULSE 60
[2023-07-07] MEDS: Carvedilol 3.125 MG TABLET PO (23:31)
[2023-07-07] MEDS: Losartan Potassium 50 MG Tablet PO (23:32)
[2023-07-07] MEDS: Pravastatin 80 MG Tablet PO (23:33)
[2023-07-07] MEDS: MELATONIN 10 MG TABLET PO (23:33)
[2023-07-08] MEDS: Levothyroxine 112 MCG Tablet PO (05:59)
[2023-07-08] MEDS: Acetaminophen 500 MG Tablet 1000 MG PO ×3 (05:59→21:43)
[2023-07-08] MEDS: 0.9% Normal Saline (1000mL) 1,000 ML 75 ML IV (08:23)
[2023-07-08 08:26] VITALS: BP 131/44; PULSE 88; RESP 18; TEMP 36.3; O2SAT 97
[2023-07-08] MEDS: APIXABAN 2.5 MG TABLET (WCH) PO ×2 (08:32→21:40)
[2023-07-08] MEDS: Ezetimibe 10 MG Tablet PO (08:32)
[2023-07-08] MEDS: Pantoprazole Sodium 20 MG Tablet PO (08:32)
[2023-07-08] MEDS: Senna/Docusate Sodium 1 Tablet PO ×2 (08:32→21:40)
[2023-07-08] MEDS: Clopidogrel Bisulfate 75 MG Tablet PO (08:32)
[2023-07-08] MEDS: Amiodarone 200 MG Tablet PO (08:32)
[2023-07-08] MEDS: Sertraline 50 MG Tablet PO (08:32)
[2023-07-08] MEDS: Carvedilol 3.125 MG TABLET PO ×2 (08:32→21:39)
[2023-07-08] MEDS: Losartan Potassium 50 MG Tablet PO ×2 (08:32→21:40)
[2023-07-08] MEDS: amLODIPine 5 MG Tablet PO (08:33)
[2023-07-08] MEDS: Menthol/Lanolin/Calamine/Znox 113 GM Tube 1 APPLIC TOPICAL ×2 (08:33→21:44)
[2023-07-08] MEDS: traMADol 50 MG Tablet PO ×2 (08:39→14:53)
--- NOTE | 2023-07-08 09:33 | PHA.CONS_ITS ---
Documented by User: July Sesay 07/08/23 10:15 TCU RX Drug Regimen Review Subjective/Objective Subjective/Objective: Subjective: TCU Admission. 82 YOF presented to the ER with a fall. Hospitalized for left hip fracture, underwent left hip hemiarthroplasty 07/03/[address] Sanchez, complicated by acute respiratory failure with hypoxia requiring intubation, agitation. Admitted to TCU with debility for strengthening and rehabilitation. Objective: Allergies lisinopril Adverse Reaction (Intermediate, Verified 06/30/23 13:50) Cough Current Medications Generic Name Dose Route Start Last Admin Trade Name Freq PRN Reason Stop Dose Admin Acetaminophen 1,000 mg 07/07/23 22:00 07/08/23 05:59 Acetaminophen 500 Mg Tablet PO 1,000 mg Q8 ELIZABETH Administration Amiodarone HCl 200 mg 07/07/23 10:00 07/08/23 08:32 Amiodarone 200 Mg Tablet PO 200 mg DAILY ELIZABETH Administration Amlodipine Besylate 5 mg 07/07/23 10:00 07/08/23 08:33 Amlodipine 5 Mg Tablet PO 5 mg DAILY ELIZABETH Administration Protocol Apixaban 2.5 mg 07/06/23 22:00 07/08/23 08:32 Apixaban 2.5 Mg Tablet ([facility]) PO 2.5 mg Q12H ELIZABETH Administration Bisacodyl 10 mg 07/06/23 13:19 07/07/23 03:07 Bisacodyl 10 Mg Suppository RC 10 mg DAILY PRN Administration CONSTIPATION Calamine/Phenol 1 applic 07/08/23 10:00 07/08/23 08:33 Menthol/Lanolin/Calamine/Znox 113 Gm Tube TOPICAL 1 applic BID ELIZABETH Administration Protocol Carvedilol 3.125 mg 07/06/23 22:00 07/08/23 08:32 Carvedilol 3.125 Mg Tablet PO 3.125 mg BID ELIZABETH Administration Protocol Clopidogrel Bisulfate 75 mg 07/07/23 10:00 07/08/23 08:32 Clopidogrel Bisulfate 75 Mg Tablet PO 75 mg DAILY ELIZABETH Administration Ezetimibe 10 mg 07/07/23 10:00 07/08/23 08:32 Ezetimibe 10 Mg Tablet PO 10 mg DAILY ELIZABETH Administration Heparin Sodium (Beef Lung) 50 units 07/06/23 14:08 Heparin Pf Lock 10 Units/Ml 50 Units/5 Ml Syringe IV UD PRN PICC Line Heparin Flush Hydroxyzine Pamoate 50 mg 07/06/23 13:29 Hydroxyzine Corin 25 Mg Capsule PO QHS PRN Sleep Sodium Chloride 1,000 mls @ 75 mls/hr 07/08/23 07:55 07/08/23 08:23 IV 75 mls/hr .[id number] ELIZABETH Administration Levothyroxine Sodium 112 mcg 07/07/23 06:00 07/08/23 05:59 Levothyroxine 112 Mcg Tablet PO 112 mcg DAILY@0600 ELIZABETH Administration Losartan Potassium 50 mg 07/06/23 22:00 07/08/23 08:32 Losartan Potassium 50 Mg Tablet PO 50 mg BID ELIZABETH Administration Protocol Melatonin 10 mg 07/06/23 22:00 07/07/23 23:33 Melatonin 10 Mg Tablet PO 10 mg QHS ELIZABETH Administration Nitroglycerin 0.4 mg 07/06/23 13:17 Nitroglycerin (Inpatient Use) 0.4 Mg Tab.Subl SL Q5M PRN Chest Pain Ondansetron HCl 4 mg 07/06/23 13:08 Ondansetron Odt 4 Mg Tablet PO Q8H PRN PRN Nausea Pantoprazole Sodium 20 mg 07/07/23 10:00 07/08/23 08:32 Pantoprazole Sodium 20 Mg Tablet PO 20 mg DAILY [facility] Administration Pravastatin Sodium 80 mg 07/06/23 22:00 07/07/23 23:33 Pravastatin 80 Mg Tablet PO 80 mg QHS [facility] Administration Senna/Docusate Sodium 1 tablet 07/06/23 22:00 07/08/23 08:32 Senna/Docusate Sodium 1 Tablet PO 1 tablet BID [facility] Administration Sertraline HCl 50 mg 07/07/23 10:00 07/08/23 08:32 Sertraline 50 Mg Tablet PO 50 mg DAILY [facility] Administration Sodium Chloride 10 - 40 ml 07/06/23 14:08 0.9 % Nacl (Sterile) Posiflush 10 Ml IV UD PRN Port access or dressing change Sodium Chloride 10 - 40 ml 07/06/23 14:08 0.9% Saline Lock 10 Ml Syringe IV UD PRN Open End PICC Flush Tramadol HCl 50 mg 07/06/23 13:24 07/08/23 08:39 Tramadol 50 Mg Tablet PO 50 mg TID PRN PRN Administration Pain Score 4-10 Tuberculin PPD 0.1 ml 07/14/23 10:00 Tuberculin,Purif.Prot.Deriv. 50 Tu/Ml Vial ID 07/14/23 10:01 X1 ONE Problem List HFrEF (heart failure with reduced ejection fraction) (Acute) Hypothyroidism (Acute) Hyperlipidemia (Acute) Hypertension (Chronic) Atrial flutter (Acute) Depression (Acute) Debility (Acute) History of left hip hemiarthroplasty (Acute) Acute hypoxemic respiratory failure (Acute) Coronary artery disease (Acute) Closed fracture of left hip (Acute) Chronic back pain (Chronic) Vital Signs Temp Pulse Resp BP Pulse Ox O2 Del Method O2 Flow Rate 97.3 F L 88 18 131/44 H 97 Nasal Cannula 4 07/08/23 08:26 07/08/23 08:26 07/08/23 08:26 07/08/23 08:26 07/08/23 08:26 07/08/23 08:26 07/07/23 17:57 Oxygen Flow Rate (L/min) 4 Oxygen Delivery Method Nasal Cannula Weight: 63.219 kg Body Mass Index (BMI) 24.7 Sodium 138 mmol/L (136-145) 07/07/23 07:20 Potassium 3.6 mmol/L (3.5-5.1) 07/07/23 07:20 Chloride 107 mmol/L (98-107) 07/07/23 07:20 Carbon Dioxide 27.0 mmol/L (21.0-32.0) 07/07/23 07:20 Anion Gap 4 (5-15) L 07/07/23 07:20 BUN 32 mg/dL (7-18) H 07/07/23 07:20 Creatinine 0.92 mg/dL (0.55-1.02) 07/07/23 07:20 Est GFR (MDRD) Af Amer 75 mL/min (>60) 07/07/23 07:20 Est GFR (MDRD) Non-Af 62 mL/min (>60) 07/07/23 07:20 BUN/Creatinine Ratio 34.8 RATIO (10-20) H 07/07/23 07:20 Glucose 118 mg/dL (74-106) H 07/07/23 07:20 Assessment/Plan: 1. Pain: acetaminophen 1000mg PO Q8 and tramadol 50mg PO TID PRN pain 4-10. Resident has had 2 doses of tramadol for pain scores of 4 and 5 in the hip. Please continue to monitor for increased pain, PRN usage, constipation, renal function and respiratory depression. 2. Bowel: senna/docusate 1T PO BID and bisacodyl 10mg RC daily PRN constipation. Resident has had 1 dose of bisacodyl. Please continue to monitor for constipation and PRN usage. No documented bowel movement so far. 3. Atrial flutter/hypertension/CAD: carvedilol 3.125mg PO BID, amiodarone 200mg PO daily, losartan 50mg PO BID, apixaban 2.5mg PO BID, clopidogrel 75mg PO daily and nitroglycerin 0.4mg SL Q5M PRN chest pain. Resident has not used any PRN doses. Please continue to monitor BP (last 131/44), HR (last 88), potassium (last 3.6mmol/L), sodium (last 138mmo/L), S/S bleeding, hemoglobin (last 9.4g/dL), renal function (last SCr 0.92mg/dL), chest pain, swelling and PRN usage. Apixaban dose likely appropriate at this time. Age >80. Weight is now >60kg but has been fluctuating and under 60kg in the past few days. 4. Hyperlipidemia: pravastatin 80mg PO QHS and ezetimibe 10mg PO daily. Please consider ordering a lipid panel (last 05/2015) if clinically appropriate. Thanks. Please continue to monitor for muscle pain. 5. Hypothyroidism: levothyroxine 112mcg PO daily. Please continue to monitor TSH (last 07/02/23) and S/S of hypothyroidism. 6. GERD: pantoprazole 20mg PO daily. Please continue to monitor for S/S of GERD and diarrhea (BEERs medication). 7. Insomnia: melatonin 10mg PO QHS and hydroxyzine 50mg PO QHS PRN sleep. No hydroxyzine doses given. Please continue to monitor for excessive drowsiness, PRN usage and insomnia. 8. Nausea: ondansetron 4mg PO Q8H PRN nausea. No doses given so far. Please continue to monitor for nausea and PRN usage. Assessment/Plan for indications treated with psychotropic medications: 1. Depression: sertraline 50mg PO daily. Please see physician note regarding GDR. Please continue to monitor for suicidal ideation (black box warning), sodium, and falls/fractures (BEERs medication, patient admitted for a fall). Medical chart and medication regimen reviewed. The following medication irregularities or issues were identified: 1. Pravastatin 80mg PO QHS and ezetimibe 10mg PO daily. Please consider ordering a lipid panel (last 05/2015) if clinically appropriate. Thanks. Date Date of Note:: 07/08/23 Documented by User: Dr. Cliff Klein MD 07/08/23 13:16 TCU RX Drug Regimen Review Provider Comments Provider responsibility Provider Comments to Recommendations by Pharmacy: Agree
--- NOTE | 2023-07-08 11:10 | NURSING ---
dr cervantes started IV fluids this AM d/t dehydration per rn night, low UOP. will continue to monitor w/bladder scans
[2023-07-08] MEDS: Lactulose 20 GM/30 ML UDC PO (15:11)
[2023-07-08] MEDS: Tamsulosin HCl 0.4 MG Capsule PO (17:43)
--- NOTE | 2023-07-08 19:39 | NURSING ---
staff reports XL BM x2, Dr. Klein updated via telephone, d/c lactulose
[2023-07-08 19:55] VITALS: RESP 18; O2SAT 96
--- NOTE | 2023-07-08 20:04 | NURSING ---
pt unable to void but 30cc clear yellow urine today. new order to insert [place] and start flomax. pt also had over 500cc IVF as well today. lactulose effective with XLG results x2, one incont. pt HS care provided. resting in bed, heels elevated. call light in reach.
[2023-07-08] MEDS: Pravastatin 80 MG Tablet PO (21:40)
[2023-07-08] MEDS: MELATONIN 10 MG TABLET PO (21:43)
[2023-07-09] MEDS: 0.9% Normal Saline (1000mL) 1,000 ML 75 ML IV ×2 (03:39→14:43)
[2023-07-09] MEDS: Acetaminophen 500 MG Tablet 1000 MG PO ×3 (05:43→21:44)
[2023-07-09] MEDS: Levothyroxine 112 MCG Tablet PO (05:44)
[2023-07-09] MEDS: Senna/Docusate Sodium 1 Tablet PO ×2 (07:56→21:41)
[2023-07-09] MEDS: Ezetimibe 10 MG Tablet PO (07:56)
[2023-07-09] MEDS: Sertraline 50 MG Tablet PO (07:56)
[2023-07-09] MEDS: Clopidogrel Bisulfate 75 MG Tablet PO (07:56)
[2023-07-09] MEDS: Menthol/Lanolin/Calamine/Znox 113 GM Tube 1 APPLIC TOPICAL ×2 (07:56→21:39)
[2023-07-09] MEDS: APIXABAN 2.5 MG TABLET (WCH) PO ×2 (07:56→21:40)
[2023-07-09] MEDS: Amiodarone 200 MG Tablet PO (07:56)
[2023-07-09] MEDS: Pantoprazole Sodium 20 MG Tablet PO (07:56)
[2023-07-09] MEDS: Losartan Potassium 50 MG Tablet PO ×2 (07:56→21:41)
[2023-07-09] MEDS: amLODIPine 5 MG Tablet PO (07:56)
[2023-07-09] MEDS: Carvedilol 3.125 MG TABLET PO ×2 (07:56→21:40)
[2023-07-09 08:32] LABS: Cholesterol 69 mg/dL (200); High Density Lipoprotein 15 mg/dL; Triglycerides 139 mg/dL; Very Low Density Lipoprotein 28 mg/dL (5-40)
[2023-07-09 14:10] VITALS: BP 127/49; PULSE 61; RESP 20; TEMP 36.6; O2SAT 96
--- NOTE | 2023-07-09 15:21 | CASEMGMT ---
Social Work TCU Admission Note SW met w/pt at bedside to complete initial assessment. SW introduced self, role of SW in TCU. SW verified pt's contacts. SW reviewed pt's code status as [id number] no intubation. Pt not certain if this is correct, she is going to speak w/her family and is to follow up w/RN in regard to this. SW educated pt that she will have a plan of care meeting next week to review how she is progressing and to start looking ahead to when she may be ready for discharge, and what she may need at discharge. Pt states understanding. Pt's goal is to return home at discharge, open to whatever DME may be needed and home health care if needed. SW remains available throughout TCU admission to assist w/discharge planning needs. NIURKA Lewis
[2023-07-09] MEDS: Tamsulosin HCl 0.4 MG Capsule PO (17:50)
[2023-07-09] MEDS: traMADol 50 MG Tablet PO (21:34)
[2023-07-09] MEDS: hydrOXYzine PAM 25 MG Capsule 50 MG PO (21:38)
[2023-07-09] MEDS: MELATONIN 10 MG TABLET PO (21:42)
[2023-07-09] MEDS: Pravastatin 80 MG Tablet PO (21:45)
[2023-07-10] MEDS: Levothyroxine 112 MCG Tablet PO (06:00)
[2023-07-10] MEDS: Acetaminophen 500 MG Tablet 1000 MG PO ×3 (06:01→21:50)
[2023-07-10] MEDS: traMADol 50 MG Tablet PO (06:03)
[2023-07-10 07:40] VITALS: O2SAT 92
[2023-07-10] MEDS: Losartan Potassium 50 MG Tablet PO ×2 (10:48→21:48)
[2023-07-10] MEDS: APIXABAN 2.5 MG TABLET (WCH) PO ×2 (10:48→21:48)
[2023-07-10] MEDS: Amiodarone 200 MG Tablet PO (10:48)
[2023-07-10] MEDS: Carvedilol 3.125 MG TABLET PO ×2 (10:48→21:48)
[2023-07-10] MEDS: Senna/Docusate Sodium 1 Tablet PO ×2 (10:49→21:48)
[2023-07-10] MEDS: Pantoprazole Sodium 20 MG Tablet PO (10:49)
[2023-07-10] MEDS: amLODIPine 5 MG Tablet PO (10:49)
[2023-07-10] MEDS: Ezetimibe 10 MG Tablet PO (10:49)
[2023-07-10] MEDS: Clopidogrel Bisulfate 75 MG Tablet PO (10:49)
[2023-07-10] MEDS: Sertraline 50 MG Tablet PO (10:49)
[2023-07-10] MEDS: Menthol/Lanolin/Calamine/Znox 113 GM Tube 1 APPLIC TOPICAL ×2 (10:51→21:47)
[2023-07-10 11:15] LABS: Bedside Glucose 93 mg/dL (74-106)
[2023-07-10] MEDS: 0.9 % NaCl (Sterile) Posiflush 10 mL IV (13:13)
[2023-07-10 14:52] VITALS: BP 128/52; PULSE 65; RESP 16; TEMP 36.6; O2SAT 97
[2023-07-10 16:34] LABS: Bedside Glucose 115 mg/dL (74-106)
[2023-07-10] MEDS: Tamsulosin HCl 0.4 MG Capsule PO (17:34)
[2023-07-10 19:18] VITALS: RESP 16
--- NOTE | 2023-07-10 20:29 | NURSING ---
Pt called for assist to the bathroom. Aide came in to assist pt. Pt was assisted to stand at side of bed with walker and skid free socks. Pt's [place] and o2 tubing free free of tangles. Pt stood started to take a step fell back onto the bed and slid to the floor. Pt denies head being hit. No c/o of pain post fall. VS taken: 173/84, 96% on 3l n/c, 88, resp 16. Pt assisted x2 to stand and return to bed. Inc of stool during transfer to bed. Attends changed. [place] care given. Pt denies any pain or needs.
[2023-07-10] MEDS: MELATONIN 10 MG TABLET PO (21:49)
[2023-07-10] MEDS: Pravastatin 80 MG Tablet PO (21:49)
[2023-07-10 22:01] LABS: Bedside Glucose 109 mg/dL (74-106)
[2023-07-11] MEDS: traMADol 50 MG Tablet PO ×3 (01:12→22:14)
[2023-07-11] MEDS: hydrOXYzine PAM 25 MG Capsule 50 MG PO (01:13)
[2023-07-11] MEDS: Levothyroxine 112 MCG Tablet PO (06:13)
[2023-07-11] MEDS: Acetaminophen 500 MG Tablet 1000 MG PO ×3 (06:13→22:21)
[2023-07-11 07:14] VITALS: O2SAT 95
[2023-07-11] MEDS: Sertraline 50 MG Tablet PO (09:31)
[2023-07-11] MEDS: Carvedilol 3.125 MG TABLET PO ×2 (09:31→22:17)
[2023-07-11] MEDS: Losartan Potassium 50 MG Tablet PO ×2 (09:31→22:17)
[2023-07-11] MEDS: Amiodarone 200 MG Tablet PO (09:31)
[2023-07-11] MEDS: amLODIPine 5 MG Tablet PO (09:31)
[2023-07-11] MEDS: Ezetimibe 10 MG Tablet PO (09:31)
[2023-07-11] MEDS: Pantoprazole Sodium 20 MG Tablet PO (09:31)
[2023-07-11] MEDS: Clopidogrel Bisulfate 75 MG Tablet PO (09:31)
[2023-07-11] MEDS: APIXABAN 2.5 MG TABLET (WCH) PO ×2 (09:31→22:16)
[2023-07-11] MEDS: Menthol/Lanolin/Calamine/Znox 113 GM Tube 1 APPLIC TOPICAL ×2 (09:31→22:18)
[2023-07-11] MEDS: Senna/Docusate Sodium 1 Tablet PO ×2 (09:31→22:15)
[2023-07-11 09:37] VITALS: BP 122/48; PULSE 63
[2023-07-11 09:40] VITALS: PULSE 63; O2SAT 92
[2023-07-11 10:19] VITALS: O2SAT 95
--- NOTE | 2023-07-11 10:48 | NURSING ---
Offered covid vaccine, VIS provided. Patient refuses at this time.
[2023-07-11] MEDS: 0.9 % NaCl (Sterile) Posiflush 10 mL IV (11:17)
--- NOTE | 2023-07-11 14:39 | NS ---
MST score = 2
[2023-07-11 14:49] VITALS: BP 141/59; PULSE 64; RESP 18; TEMP 36.7; O2SAT 94
[2023-07-11] MEDS: Tamsulosin HCl 0.4 MG Capsule PO (16:59)
--- NOTE | 2023-07-11 17:46 | RAD_ITS ---
STUDY: X-RAY - LUMBAR SPINE REASON FOR EXAM: Female, 82 years old. Back pain after fall. TECHNIQUE: 5 view(s) of the lumbar spine were obtained. COMPARISON: None FINDINGS: Normal lumbar lordosis. There is no substantial scoliosis. There is a normal alignment of the vertebrae. There is a mild compression fracture noted of L4. Normal disc space heights. Diffusely calcified aorta. Left pleural effusion. RAD/L/S Spine Min 4 Views IMPRESSION: Mild compression fracture of L4. Electronically Signed: Ezio Mancera DO at 19:09 EDT Reading Location ID and State: [facility] / [place] Tel [phone], Service support ,
--- NOTE | 2023-07-11 19:35 | NURSING ---
Addendum entered by Radu Lai 07/11/23 19:56: Updated patient rep (Nya) regarding lumbar spine xray results and new order for Consult to [place] or Dr. Fabian. Digital Sales Manager Nya states that l4 fx is not new and patient received MRI on 06/28/23 prior to fall for back pain. Rep (Nya) states the reading of the MRI result was L4 and L5 compression fx, pt. rep states provided copy of MRI to ICU [facility] while patient was intubated. Original Note: Dr. Klein notified via telephone of lumbar spine xray results. New order received from Dr. Klein to consult Dr. Kennedy or Dr. Fabian for mild compression fracture of L4. Order repeated back.
[2023-07-11] MEDS: Pravastatin 80 MG Tablet PO (22:15)
[2023-07-11] MEDS: MELATONIN 10 MG TABLET PO (22:16)
[2023-07-11 22:25] VITALS: BP 133/66; PULSE 79; RESP 16
[2023-07-12] MEDS: hydrOXYzine PAM 25 MG Capsule 50 MG PO (01:37)
[2023-07-12] MEDS: traMADol 50 MG Tablet PO ×2 (06:47→21:41)
[2023-07-12] MEDS: Levothyroxine 112 MCG Tablet PO (06:48)
[2023-07-12] MEDS: Acetaminophen 500 MG Tablet 1000 MG PO ×3 (06:50→21:40)
[2023-07-12] MEDS: 0.9% Saline Lock 10 ML Syringe IV (06:54)
[2023-07-12 06:55] VITALS: O2SAT 90
--- NOTE | 2023-07-12 07:14 | NURSING ---
Patient c/o muscle spasms to back, requests PRN Tramadol before next dose is due, confusion noted at times. Written communication left for Dr. Klein.
[2023-07-12 07:24] VITALS: RESP 18; TEMP 36.6
[2023-07-12 08:14] LABS: Absolute Lymphocyte Count 1.16 X10^3/uL (0.83-4.51); Absolute Neutrophil Count 9.8 X10^3/uL (2.0-7.7); Basophil# 0.08 X10^3/uL; Basophil% 0.6 % (0-1); Eosinophil# 0.52 X10^3/uL; Hematocrit 28.5 % (37-47); Hemoglobin 8.9 g/dL (12.0-15.0); Lymphocyte # 1.16 X10^3/ul (0.83-4.51); Lymphocyte % 8.8 % (19-41); Mean Corp Hgb Conc 31.2 g/dL (32-36); Mean Corpuscular Hgb 27.4 pg (27.0-32.0); Mean Corpuscular Volume 87.7 fL (81-99); Mean Platelet Vol. 9.3 fl (6.2-12.0); Monocyte% 11.4 % (0-10); NRBC Flagged by Analyzer 0.2 % (0-5); Neutrophil # 9.76 X10^3/uL (2.7-7.7); Neutrophil % 74.3 % (47-70); Platelet Count 569 K/mm3 (150-450); RBC Distribution Width CV 15.3 % (11.6-14.6); RBC Distribution Width SD 48.8 fl (35.1-43.9); Red Blood Count 3.25 M/mm3 (4.2-5.4); White Blood Count 13.1 K/mm3 (4.4-11.0)
[2023-07-12 08:48] LABS: Anion Gap 7 (5-15); BUN 11 mg/dL (7-18); BUN/Creat Ratio 13.3 RATIO (10-20); Calcium,Total 8.4 mg/dL (8.5-10.1); Chloride 105 mmol/L (98-107); Creatinine, Serum 0.82 mg/dL (0.55-1.02); EST Glomerular Filtration Rate 70 mL/min (>60); Est Glom Filt Rate - Afr Amer 85 mL/min (>60); Estimated Creatinine Clearance 47.37 ml/min; Glucose 95 mg/dL (74-106); Potassium 3.4 mmol/L (3.5-5.1); Sodium Level 136 mmol/L (136-145)
[2023-07-12] MEDS: Losartan Potassium 50 MG Tablet PO ×2 (09:23→21:40)
[2023-07-12] MEDS: Amiodarone 200 MG Tablet PO (09:23)
[2023-07-12] MEDS: Carvedilol 3.125 MG TABLET PO ×2 (09:23→21:40)
[2023-07-12] MEDS: Pantoprazole Sodium 20 MG Tablet PO (09:24)
[2023-07-12] MEDS: APIXABAN 2.5 MG TABLET (WCH) PO ×2 (09:24→21:40)
[2023-07-12] MEDS: Senna/Docusate Sodium 1 Tablet PO ×2 (09:24→21:40)
[2023-07-12] MEDS: amLODIPine 5 MG Tablet PO (09:24)
[2023-07-12] MEDS: Clopidogrel Bisulfate 75 MG Tablet PO (09:24)
[2023-07-12] MEDS: Sertraline 50 MG Tablet PO (09:24)
[2023-07-12] MEDS: Ezetimibe 10 MG Tablet PO (09:24)
[2023-07-12] MEDS: Menthol/Lanolin/Calamine/Znox 113 GM Tube 1 APPLIC TOPICAL ×2 (09:24→21:45)
[2023-07-12 09:29] VITALS: BP 122/51; PULSE 74; O2SAT 95
[2023-07-12] MEDS: 0.9 % NaCl (Sterile) Posiflush 10 mL IV (09:30)
[2023-07-12 10:19] VITALS: BMI 25.4
[2023-07-12 10:45] VITALS: O2SAT 97
[2023-07-12 10:57] LABS: Bacteria 0 SEEN /hpf (None Seen); Mucous, Urine 0 SEEN /hpf (<or=2+); Red Blood Cells-Urine 0 SEEN /hpf (0-5)
[2023-07-12 11:02] LABS: Color, Urine Yellow (Yellow); Glucose, Dipstick Normal (Normal); Ketone-Dipstick Negative (Negative); Leukocyte Esterase-Dipstick 25 /ul (Negative); Nitrite-Dipstick Negative (Negative); Occult Blood-Urine 10 /ul (Negative); Protein-Dipstick Negative (Negative); Urine Bilirubin Dipstick Negative (Negative); Urine Clarity Clear (Clear); Urine Urobilinogen Normal (Normal)
[2023-07-12 11:12] LABS: Squamous Epithelial Cells - UA 0-5 SEEN /hpf (5-10); White Blood Cells 0-5 SEEN /hpf (0-5)
[2023-07-12 14:26] VITALS: BP 125/48; PULSE 55; RESP 16; TEMP 36.2; O2SAT 95
--- NOTE | 2023-07-12 14:28 | NURSING ---
Called Saul Thompson [facility] regarding pt's MRI Dr. Kennedy requesting it be sent for him to review.
--- NOTE | 2023-07-12 15:01 | PCM.CONS.GEN ---
Assessment & Plan Assessment/Plan (1) Collapsed vertebra, not elsewhere classified, site unspecified, initial encounter for fracture: PLAN: -Obtain MRI imaging from [facility]. MRI read from 06/28/23 noted L5 superior endplate compression fracture that was acute in nature. -XR here noted L4 compression fracture. Would like MRI to corroborate this discrepancy -Would like Dr Gonzales note as well. -Dr. Mcdonald is her [facility] filling layer up, will need to have clearance to hold eliquis and plavix (3 and 7 days respectively) should we pursue kyphoplasty. She had 4 POLA placed 10 years ago and 1 about 1 yaer ago. -Started PT -MEDICATIONS for pain include: tylenol 1000mg Q8 hr, baclofen 5mg TID PRN, tramadol 50mg Q6h PRN. Of note she is on sertraline, so would be cautious regarding possible serotonin syndrome. She has tolerated tramadol without any side effects however as a home medication with sertraline. -We discussed kyphoplasty in depth, she would like to discuss such a modality with her family. (2) Spasm: PLAN: In setting of compression fracture. Taking above medications with benefit. However the pain can be quite severe at night. HPI Consult Data Date of Consult: 07/12/23 HPI Narrative Reason for Consultation: Back pain (compression fracture) HPI Narrative: EVENS ORDOÑEZ, is a 82 F w/ pmh ofAF on Eliquis, CAD, CHF, who was admitted a few days ago sp fall and found to have hip fracture. She was admitted and subsequently underwent left hip replacement now in rehabilitation. She had a fall a few weeks ago and saw Dr. Gonzales for acute worsening of chronic low back pain. MRI showed L5 compression fracture with 10% height loss that was acute in nature. She had another fall that led to the hip fracture thereafter and was admitted for hypoxic respiratory failure and eventually underwent hip surgery successfully. She still describes significant low back pain that is often spasmodic in nature and worst at night time. She has just started rehab for the hip. She is on plavix and eliquis for POLA (last 1 year ago). Washroom Operator is Dr. Mcdonald at [facility]. [facility] Medical History (Updated 07/12/23 @ 15:[address] Reji Kennedy MD) Bleeding tendency Post-menopausal High cholesterol History of stress test Osteoporosis GERD (gastroesophageal reflux disease) Hypertension Non-rheumatic mitral regurgitation Tachycardia Bladder prolapse Nonrheumatic mitral valve disorder Abnormal stress test Pure hypercholesterolemia Essential hypertension Atherosclerotic heart disease of [place] coronary artery without angina pectoris History of coronary artery stent placement (~09/25/13) Old myocardial infarction half-way use of drug Ischemic cardiomyopathy Abnormal ECG Abnormal serum enzyme level NSTEMI (non-ST elevation myocardial infarction) Angina pectoris Chest pain Hypothyroidism Home Medications ?Medication ?Instructions ?Recorded ?Last Taken ?Type Handicap placard #1 ea 11/19/20 Unknown Rx sertraline 50 mg tablet 50 mg PO DAILY ANXIETY 05/06/21 06/30/23 History hydroxyzine HCl 50 mg tablet 50 mg PO QHS PRN Sleep 02/09/22 02/08/22 History nitroglycerin 0.4 mg sublingual 0.4 mg sublingual Q5M PRN Chest 02/25/22 04/20/22 04:30 Rx tablet Pain #25 tabs apixaban 2.5 mg tablet (Eliquis) 2.5 mg PO Q12H blood thinner 04/26/22 06/30/23 History melatonin 10 mg tablet 10 mg PO QHS SLEEP 04/26/22 06/29/23 History omeprazole 20 mg capsule,delayed 20 mg PO DAILY GERD 04/26/22 06/30/23 History release amiodarone 200 mg tablet 200 mg PO DAILY dose reduced at 05/04/22 06/30/23 History [facility]. acetaminophen 325 mg tablet 650 mg PO Q6H PRN Pain 06/13/22 Unknown History (Tylenol) clopidogrel 75 mg tablet 75 mg PO DAILY prevent clots 06/13/22 06/30/23 History losartan 50 mg tablet 50 mg PO BID BP 06/13/22 06/30/23 History pravastatin 80 mg tablet 80 mg PO DAILY cholesterol 06/13/22 06/30/23 History ondansetron 4 mg disintegrating 4 mg PO Q8H PRN PRN Nausea #14 tabs 02/09/23 Unknown Rx tablet tramadol 50 mg tablet 50 mg PO TID PRN pain 06/22/23 Unknown History amlodipine 5 mg tablet 5 mg PO DAILY BP 06/30/23 06/30/23 History carvedilol 6.25 mg tablet 3.125 mg PO BID BP/heart rate 06/30/23 06/30/23 History ezetimibe 10 mg tablet 10 mg PO DAILY cholesterol 06/30/23 Unknown History levothyroxine 112 mcg tablet 112 mcg PO DAILY thyroid 06/30/23 06/30/23 History Allergy/AdvReac Type Severity Reaction Status Date / Time lisinopril AdvReac Intermediate Cough Verified 06/30/23 13:50 Family History Mother Breast cancer Myocardial infarction CAD (coronary artery disease) Diabetes Father Myocardial infarction CAD (coronary artery disease) Brother Myocardial infarction Diabetes CAD (coronary artery disease) Sister Breast cancer Hypertension Surgical History History of heart artery stent H/O cardiac catheterization Presence of coronary angioplasty implant and graft (~09/25/13) Social History household members: none Smoking Status: Never smoker alcohol intake: never substance use type: does not use caffeine: No what type of physical activity do you participate in: walking frequency: 3-4 times per week duration: 45-60 minutes/day seatbelt use: always do you feel safe at home: Yes ROS Constitutional Constitutional: Reports weakness; Denies chills, fever(s) or weight gain ENT HEENT: Denies headache(s), nasal congestion or nasal discharge Cardiovascular Cardiovascular: Denies chest pain or palpitations Respiratory/Chest Respiratory/Chest: Reports other Gastrointestinal Gastrointestinal: Denies abdominal pain, nausea or vomiting Genitourinary Genitourinary: Denies dysuria Musculoskeletal Musculoskeletal: Denies joint pain or joint swelling Integumentary Integumentary: Denies rash or wounds Neurologic Neurologic: Denies numbness or tingling Psychiatric Psychiatric: Denies anxiety, auditory hallucinations, depression, homicidal ideation or suicidal ideation Physical Exam Narrative She has tenderness to percussion over the lower lumbar spine. Seated with legs up on chair. Const alert, no apparent distress and well nourished General Appearance: cooperative and well developed HEENT normocephalic Resp normal respiratory effort Resp Narrative: On 1 L NC Neuro no sensory deficits noted Neuro Narrative: 5/5 strength in lower extremities, escept unable to fully assess left hip due to recent replacement surgery. Psych affect normal Appearance: appropriate Lab / Micro Data 07/12/23 08:04 07/12/23 08:04 Labs: Laboratory Results - last 24 hr 07/12/23 08:04: WBC 13.1 H, RBC 3.25 L, Hgb 8.9 L, Hct 28.5 L, MCV 87.7, MCH 27.4, MCHC 31.2 L, RDW Std Deviation 48.8 H, RDW Coeff of [place] 15.3 H, Plt Count 569 H, MPV 9.3, Immature Gran % (Auto) 0.900, Neut % (Auto) 74.3 H, Lymph % (Auto) 8.8 L, [place] % (Auto) 11.4 H, Eos % (Auto) 4.0, Baso % (Auto) 0.6, Absolute Neuts (auto) 9.8 H, Absolute Lymphs (auto) 1.16, Nucleated RBC % 0.2, Sodium 136, Potassium 3.4 L, Chloride 105, Carbon Dioxide 24.0, Anion Gap 7, BUN 11, Creatinine 0.82, Estim Creat Clear Calc 47.37, Est GFR (MDRD) Af Amer 85, Est GFR (MDRD) Non-Af 70, BUN/Creatinine Ratio 13.3, Glucose 95, Calcium 8.4 L 07/12/23 10:52: Urine Color Yellow, Urine Clarity Clear, Urine pH 7.0, Ur Specific [place] 1.010, Urine Protein Negative, Urine Glucose (UA) Normal, Urine Ketones Negative, Urine Occult Blood 10 H, Urine Nitrite Negative, Urine Bilirubin Negative, Urine Urobilinogen Normal, Ur Leukocyte Esterase 25 H, Urine RBC 0 SEEN, Urine WBC 0-5 SEEN, Ur Squamous Epith Cells 0-5 SEEN, Urine Bacteria 0 SEEN, Urine Mucus 0 SEEN Imaging Radiology Impression Lumbar Spine X-Ray 07/11/23 17:46 IMPRESSION: Mild compression fracture of L4. Electronically Signed: Ezio Mancera DO at 19:09 EDT Reading Location ID and State: [facility] / [place] Tel [phone], Service support ,
--- NOTE | 2023-07-12 15:01 | NURSING ---
Communications Assistant Dr. Mcdonald's office called regarding holding Plavix for possible Kyphoplasty. Pt had a LAD Stent Placed 05/26/22 Ashely VELAZCO will give us a call back tomorrow after she contacts Dr. Mcdonald.
[2023-07-12] MEDS: Tamsulosin HCl 0.4 MG Capsule PO (17:11)
--- NOTE | 2023-07-12 17:42 | CASEMGMT ---
Social Work SW met with patient at bedside to complete MDS. Patient BIM () and PhQ-2 () HUEY Chambers
[2023-07-12] MEDS: Potassium Chloride Oral Tablet 20 MEQ 40 MEQ PO (18:31)
[2023-07-12 21:35] VITALS: PULSE 68; RESP 16; O2SAT 94
[2023-07-12] MEDS: MELATONIN 10 MG TABLET PO (21:40)
[2023-07-12] MEDS: Pravastatin 80 MG Tablet PO (21:40)
[2023-07-13] MEDS: Baclofen 10 MG Tablet 5 MG PO (00:29)
[2023-07-13] MEDS: Acetaminophen 500 MG Tablet 1000 MG PO ×3 (05:27→21:15)
[2023-07-13] MEDS: Levothyroxine 112 MCG Tablet PO (05:27)
[2023-07-13 06:31] LABS: Anion Gap 6 (5-15); BUN 12 mg/dL (7-18); BUN/Creat Ratio 14.3 RATIO (10-20); Calcium,Total 8.3 mg/dL (8.5-10.1); Chloride 106 mmol/L (98-107); Creatinine, Serum 0.84 mg/dL (0.55-1.02); EST Glomerular Filtration Rate 69 mL/min (>60); Est Glom Filt Rate - Afr Amer 83 mL/min (>60); Estimated Creatinine Clearance 46.85 ml/min; Glucose 85 mg/dL (74-106); Potassium 4.2 mmol/L (3.5-5.1); Sodium Level 136 mmol/L (136-145)
[2023-07-13 08:16] VITALS: O2SAT 95
[2023-07-13] MEDS: Menthol/Lanolin/Calamine/Znox 113 GM Tube 1 APPLIC TOPICAL ×2 (09:01→21:17)
[2023-07-13] MEDS: amLODIPine 5 MG Tablet PO (09:02)
[2023-07-13] MEDS: Losartan Potassium 50 MG Tablet PO ×2 (09:02→21:15)
[2023-07-13] MEDS: Pantoprazole Sodium 20 MG Tablet PO (09:02)
[2023-07-13] MEDS: Sertraline 50 MG Tablet PO (09:02)
[2023-07-13] MEDS: Carvedilol 3.125 MG TABLET PO ×2 (09:02→21:15)
[2023-07-13] MEDS: Clopidogrel Bisulfate 75 MG Tablet PO (09:02)
[2023-07-13] MEDS: Ezetimibe 10 MG Tablet PO (09:02)
[2023-07-13] MEDS: Senna/Docusate Sodium 1 Tablet PO ×2 (09:02→21:15)
[2023-07-13] MEDS: APIXABAN 2.5 MG TABLET (WCH) PO ×2 (09:02→21:15)
[2023-07-13] MEDS: Amiodarone 200 MG Tablet PO (09:02)
[2023-07-13] MEDS: 0.9% Saline Lock 10 ML Syringe IV (12:59)
--- NOTE | 2023-07-13 14:05 | CASEMGMT ---
Social Work Care plan IDT met with patient, son, Von and daughter in [place] rodríguez at bedside and sonVenancio is on the phone to complete care plan meeting. Discussed patient progress with therapy PT/OT/ST, nursing, and dietary. Patient continues to progress with therapy, but fluctuates in progress due to back pain. Patient expressed concerns for back pain management. Family would like to see patient progress with therapy once pain is management. Patient PLOF was independent without a use of DME. Therapy recommends that patient discharge with a front wheeled walker. THOR obtained completed script from Physician, Dr. Klein for [facility]. THOR educated patient and family on Medicare insurance coverage and benefits. Patient and family was notified that Medicare covers first 20 days of jail facility placement 100%.Days 21-100 has copay of 204/day. Family request for follow up pending progress. Family and patient would like for goal to return home with family 24/hr care or home health care. Family declined fci placement, if recommended. THOR will continue to follow to assist with discharge planning. HUEY Chambers
--- NOTE | 2023-07-13 15:28 | NURSING ---
dr Kennedy here, spoke with pt and family, reviewed MRI CD of spine, new order to hold eliquis 3 days prior to kypho on 07/20 & hold plavix x7 days prior, bridge with lovenox. hold lovenox x1 day prior to procedure. will update dr cervantes
[2023-07-13 15:48] VITALS: BP 132/54; PULSE 57; RESP 16; TEMP 35.9; O2SAT 91
--- NOTE | 2023-07-13 16:07 | PCM.PROGNOTE ---
Subjective Subjective Pain significant again overnight and periodically through the day. Taking prn pain medication does help. She states she has been able to participate in PT without issue thus far. Family here today to discuss treatment options for compression fracture. Dr. Mcdonald ok to hold AC. Objective Data Objective Data Vital Signs: Vital Signs Temp Pulse Resp BP Pulse Ox O2 Del Method O2 Flow Rate 96.7 F L 57 L 16 132/54 H 91 Room Air 2 07/13/23 15:48 07/13/23 15:48 07/13/23 15:48 07/13/23 15:48 07/13/23 15:48 07/13/23 15:48 07/13/23 11:36 Oxygen Flow Rate (L/min) 2 Oxygen Delivery Method Room Air Weight: 65.091 kg Body Mass Index (BMI) 25.4 Intake & Output: Intake and Output for Last 24 Hours 07/11/23 07/12/23 07/13/23 23:59 23:59 23:59 Intake Total 360 / 360 480 / 480 240 / 240 Output Total 1800 / 1800 1700 / 1700 725 / 725 Balance -1440 / -1440 -1220 / -1220 -485 / -485 Lab / Micro Data Attestation: I reviewed the patient's lab results. (Lumbar MRI from [facility]. CD available. 07/14. Showed L5 superior endplate compression fracture. She has lumbralized S1.) 07/12/23 08:04 07/13/23 05:32 Labs: Laboratory Results - last 24 hr 07/13/23 05:32: Sodium 136, Potassium 4.2, Chloride 106, Carbon Dioxide 24.0, Anion Gap 6, BUN 12, Creatinine 0.84, Estim Creat Clear Calc 46.85, Est GFR (MDRD) Af Amer 83, Est GFR (MDRD) Non-Af 69, BUN/Creatinine Ratio 14.3, Glucose 85, Calcium 8.3 L Physical Exam Const alert, no apparent distress and well nourished General Appearance: cooperative and well developed HEENT normocephalic Eyes General Eye: normal appearance of both eyes Resp normal respiratory effort Resp Narrative: On 1 L NC Back/Spine Back/Spine Narrative: Tenderness over the lumbar spine. Pain with percussion over the lower lumbar spine. Neuro no sensory deficits noted Neuro Narrative: 5/5 strength in lower extremities, escept unable to fully assess left hip due to recent replacement surgery. Psych affect normal Appearance: appropriate Assessment & Plan Assessment/Plan (1) Collapsed vertebra, not elsewhere classified, site unspecified, initial encounter for fracture: PLAN: -MRI read from 06/28/23 noted L5 superior endplate compression fracture that was acute in nature. Due to lumbaralized S1, I believe this is the cause of the discrepancy from the XR noting L4 compression fracture. I viewed the MRI and xr myself. -Dr. Mcdonald is her [facility] log check scaler and he states ok to hold AC for procudure. Will need to have clearance to hold eliquis and plavix (3 and 7 days respectively) should we pursue kyphoplasty. Therapeutic dose of lovenox held 24 hours prior to procedure. She had 4 POLA placed 10 years ago and 1 about 1 yearr ago. -MEDICATIONS for pain include: tylenol 1000mg Q8 hr, baclofen 5mg TID PRN, tramadol 50mg Q6h PRN. Of note she is on sertraline, so would be cautious regarding possible serotonin syndrome. She has tolerated tramadol without any side effects however as a home medication with sertraline. -We discussed kyphoplasty in depth with family and patient today. The would like to pursue it at this time. Will plan for end of next week after holding AC. Precert will need to be sent as she is in TCU. We discussed at length risks and benefits associated with the procedure as well as conservative options. (2) Spasm: PLAN: In setting of compression fracture. Taking above medications with benefit.
--- NOTE | 2023-07-13 16:21 | NURSING ---
This nurse spoke to nurse from Dr. Sanchez's office. Gave okay to remove surgical Mepilex and to leave sutures in till f/u appt. with Salo Hope.
[2023-07-13] MEDS: Tamsulosin HCl 0.4 MG Capsule PO (17:17)
[2023-07-13 21:10] VITALS: BP 156/59; PULSE 68; O2SAT 95
[2023-07-13] MEDS: MELATONIN 10 MG TABLET PO (21:14)
[2023-07-13] MEDS: Pravastatin 80 MG Tablet PO (21:15)
[2023-07-13] MEDS: hydrOXYzine PAM 25 MG Capsule 50 MG PO (23:04)
[2023-07-14] MEDS: Acetaminophen 500 MG Tablet 1000 MG PO ×3 (05:33→22:41)
[2023-07-14] MEDS: Levothyroxine 112 MCG Tablet PO (05:33)
[2023-07-14 07:28] LABS: Absolute Lymphocyte Count 0.96 X10^3/uL (0.83-4.51); Absolute Neutrophil Count 10.6 X10^3/uL (2.0-7.7); Basophil# 0.08 X10^3/uL; Basophil% 0.6 % (0-1); Eosinophil# 0.49 X10^3/uL; Eosinophils% 3.7 % (0-5); Hematocrit 29.7 % (37-47); Hemoglobin 9.2 g/dL (12.0-15.0); Lymphocyte # 0.96 X10^3/ul (0.83-4.51); Lymphocyte % 7.2 % (19-41); Mean Corpuscular Hgb 27.4 pg (27.0-32.0); Mean Corpuscular Volume 88.4 fL (81-99); Mean Platelet Vol. 8.7 fl (6.2-12.0); Monocyte# 1.19 X10^3/uL; Monocyte% 8.9 % (0-10); NRBC Flagged by Analyzer 0 % (0-5); Neutrophil # 10.56 X10^3/uL (2.7-7.7); Neutrophil % 78.8 % (47-70); Platelet Count 702 K/mm3 (150-450); RBC Distribution Width CV 15.6 % (11.6-14.6); RBC Distribution Width SD 49.1 fl (35.1-43.9); Red Blood Count 3.36 M/mm3 (4.2-5.4); White Blood Count 13.4 K/mm3 (4.4-11.0)
[2023-07-14 07:59] LABS: Anion Gap 8 (5-15); BUN 8 mg/dL (7-18); BUN/Creat Ratio 10.7 RATIO (10-20); Calcium,Total 8.4 mg/dL (8.5-10.1); Chloride 105 mmol/L (98-107); Creatinine, Serum 0.74 mg/dL (0.55-1.02); EST Glomerular Filtration Rate 79 mL/min (>60); Est Glom Filt Rate - Afr Amer 96 mL/min (>60); Estimated Creatinine Clearance 49.19 ml/min; Glucose 104 mg/dL (74-106); Potassium 3.8 mmol/L (3.5-5.1); Sodium Level 136 mmol/L (136-145)
[2023-07-14] MEDS: APIXABAN 2.5 MG TABLET (WCH) PO ×2 (10:03→22:43)
[2023-07-14] MEDS: Senna/Docusate Sodium 1 Tablet PO ×2 (10:03→22:42)
[2023-07-14] MEDS: Pantoprazole Sodium 20 MG Tablet PO (10:03)
[2023-07-14] MEDS: Sertraline 50 MG Tablet PO (10:03)
[2023-07-14] MEDS: Carvedilol 3.125 MG TABLET PO ×2 (10:04→22:42)
[2023-07-14] MEDS: Amiodarone 200 MG Tablet PO (10:04)
[2023-07-14] MEDS: Losartan Potassium 50 MG Tablet PO ×2 (10:04→22:42)
[2023-07-14] MEDS: amLODIPine 5 MG Tablet PO (10:04)
[2023-07-14] MEDS: Ezetimibe 10 MG Tablet PO (10:04)
[2023-07-14 10:06] VITALS: BP 118/50; PULSE 61
[2023-07-14] MEDS: Tuberculin,Purif.prot.deriv. 50 TU/ML Vial 0.1 ML ID (12:19)
[2023-07-14] MEDS: Menthol/Lanolin/Calamine/Znox 113 GM Tube 1 APPLIC TOPICAL ×2 (12:20→22:41)
[2023-07-14] MEDS: 0.9 % NaCl (Sterile) Posiflush 10 mL IV (12:20)
[2023-07-14 14:55] VITALS: BP 115/43; PULSE 55; RESP 16; TEMP 35.9; O2SAT 96
[2023-07-14] MEDS: Tamsulosin HCl 0.4 MG Capsule PO (16:43)
[2023-07-14 22:35] VITALS: BP 118/48; PULSE 60
[2023-07-14] MEDS: MELATONIN 3 MG TABLET PO (22:41)
[2023-07-14] MEDS: traMADol 50 MG Tablet PO (22:42)
[2023-07-14] MEDS: Pravastatin 80 MG Tablet PO (22:42)
[2023-07-15] MEDS: Levothyroxine 112 MCG Tablet PO (06:33)
[2023-07-15] MEDS: Acetaminophen 500 MG Tablet 1000 MG PO ×3 (06:33→21:04)
[2023-07-15 06:53] VITALS: O2SAT 95
[2023-07-15] MEDS: Amiodarone 200 MG Tablet PO (09:18)
[2023-07-15] MEDS: Menthol/Lanolin/Calamine/Znox 113 GM Tube 1 APPLIC TOPICAL ×2 (09:18→21:06)
[2023-07-15] MEDS: Carvedilol 3.125 MG TABLET PO ×2 (09:18→20:56)
[2023-07-15] MEDS: Losartan Potassium 50 MG Tablet PO ×2 (09:18→20:55)
[2023-07-15] MEDS: APIXABAN 2.5 MG TABLET (WCH) PO ×2 (09:19→20:56)
[2023-07-15] MEDS: Senna/Docusate Sodium 1 Tablet PO ×2 (09:19→20:57)
[2023-07-15] MEDS: Sertraline 50 MG Tablet PO (09:19)
[2023-07-15] MEDS: Pantoprazole Sodium 20 MG Tablet PO (09:19)
[2023-07-15] MEDS: amLODIPine 5 MG Tablet PO (09:19)
[2023-07-15] MEDS: Ezetimibe 10 MG Tablet PO (09:19)
--- NOTE | 2023-07-15 10:26 | MDS.RN ---
Information for the MDS was obtained from review of the clinical record, interview of resident, staff, and direct observation of resident?s care.
[2023-07-15] MEDS: 0.9% Saline Lock 10 ML Syringe IV (13:15)
[2023-07-15 16:00] VITALS: BP 134/46; PULSE 55; RESP 18; TEMP 36.6; O2SAT 95
[2023-07-15] MEDS: Tamsulosin HCl 0.4 MG Capsule PO (16:34)
[2023-07-15] MEDS: MELATONIN 3 MG TABLET PO (20:59)
[2023-07-15] MEDS: Pravastatin 80 MG Tablet PO (21:01)
[2023-07-15] MEDS: traMADol 50 MG Tablet PO (21:03)
[2023-07-16] MEDS: traMADol 50 MG Tablet PO ×2 (03:18→14:56)
[2023-07-16] MEDS: Levothyroxine 112 MCG Tablet PO (05:23)
[2023-07-16] MEDS: Acetaminophen 500 MG Tablet 1000 MG PO ×3 (05:23→21:33)
[2023-07-16] MEDS: amLODIPine 5 MG Tablet PO (08:53)
[2023-07-16] MEDS: Sertraline 50 MG Tablet PO (08:53)
[2023-07-16] MEDS: APIXABAN 2.5 MG TABLET (WCH) PO ×2 (08:53→21:31)
[2023-07-16] MEDS: Amiodarone 200 MG Tablet PO (08:53)
[2023-07-16] MEDS: Menthol/Lanolin/Calamine/Znox 113 GM Tube 1 APPLIC TOPICAL ×2 (08:53→21:31)
[2023-07-16] MEDS: Losartan Potassium 50 MG Tablet PO ×2 (08:53→21:31)
[2023-07-16] MEDS: Pantoprazole Sodium 20 MG Tablet PO (08:53)
[2023-07-16] MEDS: Senna/Docusate Sodium 1 Tablet PO ×2 (08:53→21:32)
[2023-07-16] MEDS: Carvedilol 3.125 MG TABLET PO ×2 (08:53→21:31)
[2023-07-16] MEDS: Ezetimibe 10 MG Tablet PO (08:53)
--- NOTE | 2023-07-16 13:49 | NURSING ---
dr bashir notified of pt c/o not sleeping at night since vistaril was discontinued couple days ago. new order for trazadone 50mg QHS. pt updated.
[2023-07-16 15:54] VITALS: BP 138/46; PULSE 50; TEMP 36.5; O2SAT 98
[2023-07-16] MEDS: Tamsulosin HCl 0.4 MG Capsule PO (17:39)
[2023-07-16] MEDS: Pravastatin 80 MG Tablet PO (21:31)
[2023-07-16] MEDS: MELATONIN 3 MG TABLET PO (21:31)
[2023-07-16] MEDS: traZODone 50 MG Tablet PO (21:31)
[2023-07-17] MEDS: Levothyroxine 112 MCG Tablet PO (05:20)
[2023-07-17] MEDS: Acetaminophen 500 MG Tablet 1000 MG PO ×3 (05:24→21:24)
[2023-07-17] MEDS: 0.9% Saline Lock 10 ML Syringe IV ×2 (05:25→09:27)
[2023-07-17] MEDS: Losartan Potassium 50 MG Tablet PO ×2 (09:25→21:25)
[2023-07-17] MEDS: amLODIPine 5 MG Tablet PO (09:25)
[2023-07-17] MEDS: Amiodarone 200 MG Tablet PO (09:25)
[2023-07-17] MEDS: APIXABAN 2.5 MG TABLET (WCH) PO ×2 (09:25→21:24)
[2023-07-17] MEDS: Carvedilol 3.125 MG TABLET PO ×2 (09:25→21:24)
[2023-07-17] MEDS: Menthol/Lanolin/Calamine/Znox 113 GM Tube 1 APPLIC TOPICAL ×2 (09:25→21:28)
[2023-07-17] MEDS: Senna/Docusate Sodium 1 Tablet PO ×2 (09:25→21:26)
[2023-07-17] MEDS: Sertraline 50 MG Tablet PO (09:25)
[2023-07-17] MEDS: Pantoprazole Sodium 20 MG Tablet PO (09:25)
[2023-07-17] MEDS: Ezetimibe 10 MG Tablet PO (09:25)
[2023-07-17 16:00] VITALS: BP 171/58; PULSE 63; RESP 16; TEMP 36.7; O2SAT 97
[2023-07-17] MEDS: Tamsulosin HCl 0.4 MG Capsule PO (17:00)
[2023-07-17] MEDS: Pravastatin 80 MG Tablet PO (21:25)
[2023-07-17] MEDS: MELATONIN 3 MG TABLET PO (21:25)
[2023-07-17] MEDS: traZODone 50 MG Tablet PO (21:25)
[2023-07-18] MEDS: Levothyroxine 112 MCG Tablet PO (06:29)
[2023-07-18] MEDS: Acetaminophen 500 MG Tablet 1000 MG PO ×3 (06:29→22:01)
[2023-07-18] MEDS: Enoxaparin 40 MG/0.4 ML Syringe SC (06:29)
--- NOTE | 2023-07-18 06:33 | NURSING ---
O2 at 4 lpm via nc. SpO2 99%. Liter flow decreased to 3 lpm. Will report to oncoming nurse and continue to monitor.
[2023-07-18 06:34] VITALS: O2SAT 99
[2023-07-18 06:50] VITALS: O2SAT 99
[2023-07-18] MEDS: Menthol/Lanolin/Calamine/Znox 113 GM Tube 1 APPLIC TOPICAL ×2 (09:14→22:02)
[2023-07-18] MEDS: Pantoprazole Sodium 20 MG Tablet PO (09:16)
[2023-07-18] MEDS: Losartan Potassium 50 MG Tablet PO ×2 (09:16→22:02)
[2023-07-18] MEDS: Ezetimibe 10 MG Tablet PO (09:16)
[2023-07-18] MEDS: Amiodarone 200 MG Tablet PO (09:16)
[2023-07-18] MEDS: Sertraline 50 MG Tablet PO (09:17)
[2023-07-18] MEDS: Carvedilol 3.125 MG TABLET PO ×2 (09:17→22:00)
[2023-07-18] MEDS: amLODIPine 5 MG Tablet PO (09:17)
[2023-07-18] MEDS: Senna/Docusate Sodium 1 Tablet PO ×2 (09:17→22:00)
[2023-07-18 16:00] VITALS: BP 113/43; PULSE 60; RESP 16; TEMP 36.5; O2SAT 99
[2023-07-18] MEDS: Tamsulosin HCl 0.4 MG Capsule PO (17:01)
[2023-07-18 22:00] VITALS: PULSE 70; RESP 16
[2023-07-18] MEDS: traZODone 50 MG Tablet PO (22:00)
[2023-07-18] MEDS: Pravastatin 80 MG Tablet PO (22:02)
[2023-07-18] MEDS: MELATONIN 3 MG TABLET PO (22:02)
[2023-07-18] MEDS: 0.9% Saline Lock 10 ML Syringe IV (22:09)
[2023-07-18 22:19] VITALS: BP 145/53; PULSE 64; RESP 16; O2SAT 95
[2023-07-19] MEDS: Enoxaparin 40 MG/0.4 ML Syringe SC (06:35)
[2023-07-19] MEDS: Levothyroxine 112 MCG Tablet PO (06:35)
[2023-07-19] MEDS: Acetaminophen 500 MG Tablet 1000 MG PO ×3 (06:36→23:03)
[2023-07-19 07:13] VITALS: O2SAT 98
[2023-07-19 08:55] VITALS: BP 119/63
[2023-07-19] MEDS: Menthol/Lanolin/Calamine/Znox 113 GM Tube 1 APPLIC TOPICAL ×2 (08:55→23:05)
[2023-07-19] MEDS: amLODIPine 5 MG Tablet PO (08:56)
[2023-07-19] MEDS: Losartan Potassium 50 MG Tablet PO ×2 (08:56→23:03)
[2023-07-19] MEDS: Amiodarone 200 MG Tablet PO (08:56)
[2023-07-19] MEDS: Carvedilol 3.125 MG TABLET PO ×2 (08:56→23:02)
[2023-07-19] MEDS: Ezetimibe 10 MG Tablet PO (08:57)
[2023-07-19] MEDS: Sertraline 50 MG Tablet PO (08:57)
[2023-07-19] MEDS: Pantoprazole Sodium 20 MG Tablet PO (08:57)
[2023-07-19] MEDS: Senna/Docusate Sodium 1 Tablet PO ×2 (08:57→23:04)
[2023-07-19] MEDS: Alteplase 2 MG/2 ML Vial IV (09:01)
[2023-07-19 10:35] VITALS: BMI 22.8
[2023-07-19 13:20] VITALS: PULSE 52; RESP 16; O2SAT 96
[2023-07-19 14:16] VITALS: BP 122/48; PULSE 52; RESP 16; TEMP 36.4; O2SAT 98
[2023-07-19] MEDS: Tamsulosin HCl 0.4 MG Capsule PO (17:51)
[2023-07-19 23:00] VITALS: BP 145/49; PULSE 64
[2023-07-19 23:01] VITALS: O2SAT 98
[2023-07-19] MEDS: MELATONIN 3 MG TABLET PO (23:04)
[2023-07-19] MEDS: traZODone 50 MG Tablet PO (23:04)
[2023-07-19] MEDS: Pravastatin 80 MG Tablet PO (23:04)
[2023-07-20] MEDS: Levothyroxine 112 MCG Tablet PO (06:10)
[2023-07-20] MEDS: Acetaminophen 500 MG Tablet 1000 MG PO ×3 (06:11→20:25)
[2023-07-20 06:14] VITALS: O2SAT 94
[2023-07-20] MEDS: Menthol/Lanolin/Calamine/Znox 113 GM Tube 1 APPLIC TOPICAL ×2 (08:54→20:25)
[2023-07-20] MEDS: amLODIPine 5 MG Tablet PO (08:55)
[2023-07-20] MEDS: Carvedilol 3.125 MG TABLET PO ×2 (08:55→20:26)
[2023-07-20] MEDS: Amiodarone 200 MG Tablet PO (08:55)
[2023-07-20] MEDS: Pantoprazole Sodium 20 MG Tablet PO (08:55)
[2023-07-20] MEDS: Sertraline 50 MG Tablet PO (08:56)
[2023-07-20] MEDS: Senna/Docusate Sodium 1 Tablet PO ×2 (08:56→20:25)
[2023-07-20] MEDS: Ezetimibe 10 MG Tablet PO (08:56)
[2023-07-20] MEDS: Losartan Potassium 50 MG Tablet PO ×2 (08:56→20:26)
[2023-07-20 14:54] VITALS: BP 127/44; PULSE 59; RESP 18; TEMP 36.6; O2SAT 95
[2023-07-20] MEDS: Tamsulosin HCl 0.4 MG Capsule PO (17:04)
[2023-07-20] MEDS: MELATONIN 3 MG TABLET PO (20:25)
[2023-07-20] MEDS: traZODone 50 MG Tablet PO (20:25)
[2023-07-20] MEDS: Pravastatin 80 MG Tablet PO (20:25)
[2023-07-20 22:20] VITALS: PULSE 72; O2SAT 95
[2023-07-21] MEDS: traMADol 50 MG Tablet PO ×3 (00:23→22:52)
[2023-07-21] MEDS: Acetaminophen 500 MG Tablet 1000 MG PO ×3 (05:03→22:03)
[2023-07-21] MEDS: Levothyroxine 112 MCG Tablet PO (05:03)
[2023-07-21 06:22] LABS: Absolute Lymphocyte Count 1.19 X10^3/uL (0.83-4.51); Absolute Neutrophil Count 4.9 X10^3/uL (2.0-7.7); Basophil# 0.08 X10^3/uL; Basophil% 1.1 % (0-1); Eosinophil# 0.39 X10^3/uL; Eosinophils% 5.1 % (0-5); Hematocrit 29.1 % (37-47); Hemoglobin 8.9 g/dL (12.0-15.0); Lymphocyte # 1.19 X10^3/ul (0.83-4.51); Lymphocyte % 15.7 % (19-41); Mean Corp Hgb Conc 30.6 g/dL (32-36); Mean Corpuscular Hgb 27.9 pg (27.0-32.0); Mean Corpuscular Volume 91.2 fL (81-99); Mean Platelet Vol. 8.8 fl (6.2-12.0); Monocyte# 1.04 X10^3/uL; Monocyte% 13.7 % (0-10); NRBC Flagged by Analyzer 0 % (0-5); Neutrophil # 4.86 X10^3/uL (2.7-7.7); Platelet Count 551 K/mm3 (150-450); RBC Distribution Width CV 15.8 % (11.6-14.6); Red Blood Count 3.19 M/mm3 (4.2-5.4); White Blood Count 7.6 K/mm3 (4.4-11.0)
[2023-07-21 06:56] LABS: Anion Gap 8 (5-15); BUN 16 mg/dL (7-18); BUN/Creat Ratio 17.8 RATIO (10-20); Calcium,Total 8.2 mg/dL (8.5-10.1); Chloride 107 mmol/L (98-107); EST Glomerular Filtration Rate 64 mL/min (>60); Est Glom Filt Rate - Afr Amer 77 mL/min (>60); Estimated Creatinine Clearance 39.87 ml/min; Glucose 102 mg/dL (74-106); Potassium 3.7 mmol/L (3.5-5.1); Sodium Level 139 mmol/L (136-145)
[2023-07-21 09:37] VITALS: BP 128/48; PULSE 60; RESP 18; TEMP 36.7; O2SAT 96
[2023-07-21] MEDS: 0.9% Saline Lock 10 ML Syringe IV (09:50)
[2023-07-21] MEDS: Amiodarone 200 MG Tablet PO (10:09)
--- NOTE | 2023-07-21 10:30 | NURSING ---
off unit via bed with family to surgery at this time
--- NOTE | 2023-07-21 15:00 | NURSING ---
pt returned from surgery via bed, alert and oriented. pleasant. denies need for pain medication. rates back soreness 4/10
[2023-07-21 15:13] VITALS: BP 123/48; PULSE 60; RESP 16; TEMP 36.5; O2SAT 96
[2023-07-21] MEDS: Losartan Potassium 50 MG Tablet PO ×2 (15:17→22:02)
[2023-07-21] MEDS: Carvedilol 3.125 MG TABLET PO ×2 (15:17→22:02)
[2023-07-21] MEDS: Menthol/Lanolin/Calamine/Znox 113 GM Tube 1 APPLIC TOPICAL ×2 (15:17→22:04)
[2023-07-21] MEDS: Pantoprazole Sodium 20 MG Tablet PO (15:17)
[2023-07-21] MEDS: Ezetimibe 10 MG Tablet PO (15:17)
[2023-07-21] MEDS: amLODIPine 5 MG Tablet PO (15:17)
[2023-07-21] MEDS: Sertraline 50 MG Tablet PO (15:17)
[2023-07-21 15:20] VITALS: RESP 16
[2023-07-21] MEDS: Tamsulosin HCl 0.4 MG Capsule PO (16:38)
--- NOTE | 2023-07-21 17:06 | OP.PCM_ITS ---
Problems Associated Problem List Diagnoses (1) Collapsed vertebra, not elsewhere classified, site unspecified, initial encounter for fracture: Report of Operation Date of Procedure: 07/21/23 Pre-Operative Diagnosis: L5 compression fracture Post-Operative Diagnosis: L5 compression fracture Surgery/Procedure Performed:: L5 Kyphoplasty Surgeon: Reji Kenndey Specimen's removed: Bone marrow aspirate biopsy sent to pathology Drains: None Estimated Blood Loss (mL): <5 cc Description of Procedure: INFORMED CONSENT: The procedure, risks, benefits and options were discussed with the patient (including discussion of cement leakage, neurological injury and as potential though uncommon possible side effects). There are no contraindications to the procedure. The patient expressed understanding and agreed to proceed.? PROCEDURE TECHNIQUE: The patient was admitted to the preoperative area and time out performed. Vital signs were checked and the patient was moved to the procedure area and placed in the prone position. Standard monitors were applied. Sterile prep and drape was performed in a regular manner. Under fluoroscopy guidance utilizing AP lateral and oblique view as required, the L5 level was identified. Following, local anesthesia with 0.25% bupivacaine (10cc) was administered, a 10 gauge needle was advanced utilizing the left transpedicular approach into the Lumbar vertebral body. A bone biopsy was then taken through the trochar to be sent to pathology. A drill was then passed through the trochar and used to provide an avenue for the balloon to be placed into the vertebral body. The kyphoplasty balloon was introduced through the 10 gauge needle and inflation of the balloon was up to 100 PSI at the level. The cavity was created and the balloon was removed intact. Under fluoroscopic guidance utilizing AP lateral and oblique views as required, the L5 level was identified. 10mg of 0.25% bupivacaine was administered to anesthetize the area. A 10 gauge needle was advanced utilizing the right transpedicular approach into the vertebral body . A drill was then passed through the trochar and used to provide an avenue for the balloon to be placed into the vertebral body. The kyphoplasty balloon was introduced through the 10 gauge needle and inflation of the balloon was up to 85 PSI and the cavity was created and the balloon was removed intact. The cement mixture was prepared and injected through the 10 gauge needles and the cavities were filled using of bone cement without evidece of significant extravasation or vascular uptake. The stylettes were then replaced prior to removal of the needles intact. The patient tolerated the procedure well, there were no clinical complications and the neurological exam was normal. The patient was cleansed and a Band-Aid was placed. Patient tolerated well.? Complications None. Patient moving lower extremities in pacu.
--- NOTE | 2023-07-21 18:24 | NURSING ---
[place] removed w/out issues. pt urine clear yellow. pt continues on flomax per order. will initiate bladder scans Q8hrs. hat placed in toilet to measure during voiding trials
[2023-07-21 18:41] LABS: Troponin-I HS 11 pg/mL (3.0-54.0)
[2023-07-21] MEDS: MELATONIN 3 MG TABLET PO (22:02)
[2023-07-21] MEDS: Pravastatin 80 MG Tablet PO (22:02)
[2023-07-21] MEDS: traZODone 50 MG Tablet PO (22:02)
[2023-07-21] MEDS: Senna/Docusate Sodium 1 Tablet PO (22:03)
[2023-07-21] MEDS: APIXABAN 2.5 MG TABLET (WCH) PO (22:03)
[2023-07-22] MEDS: Levothyroxine 112 MCG Tablet PO (05:49)
[2023-07-22] MEDS: Acetaminophen 500 MG Tablet 1000 MG PO ×3 (05:49→21:45)
[2023-07-22] MEDS: 0.9% Saline Lock 10 ML Syringe IV (05:49)
[2023-07-22] MEDS: Losartan Potassium 50 MG Tablet PO ×2 (09:33→21:46)
[2023-07-22] MEDS: Amiodarone 200 MG Tablet PO (09:33)
[2023-07-22] MEDS: Senna/Docusate Sodium 1 Tablet PO ×2 (09:33→21:45)
[2023-07-22] MEDS: Clopidogrel Bisulfate 75 MG Tablet PO (09:33)
[2023-07-22] MEDS: Pantoprazole Sodium 20 MG Tablet PO (09:33)
[2023-07-22] MEDS: Ezetimibe 10 MG Tablet PO (09:33)
[2023-07-22] MEDS: Sertraline 50 MG Tablet PO (09:33)
[2023-07-22] MEDS: Carvedilol 3.125 MG TABLET PO ×2 (09:33→21:45)
[2023-07-22] MEDS: amLODIPine 5 MG Tablet PO (09:33)
[2023-07-22] MEDS: APIXABAN 2.5 MG TABLET (WCH) PO ×2 (09:33→21:45)
[2023-07-22] MEDS: Menthol/Lanolin/Calamine/Znox 113 GM Tube 1 APPLIC TOPICAL ×2 (09:34→21:46)
[2023-07-22] MEDS: traMADol 50 MG Tablet PO ×2 (09:38→21:44)
[2023-07-22 13:00] VITALS: BP 134/51; PULSE 60; RESP 16; TEMP 36.8; O2SAT 94
[2023-07-22 15:20] VITALS: PULSE 60; RESP 16; O2SAT 94
[2023-07-22] MEDS: Tamsulosin HCl 0.4 MG Capsule PO (17:13)
[2023-07-22] MEDS: traZODone 50 MG Tablet PO (21:45)
[2023-07-22] MEDS: MELATONIN 3 MG TABLET PO (21:45)
[2023-07-22] MEDS: Pravastatin 80 MG Tablet PO (21:45)
[2023-07-22 22:05] VITALS: BP 162/56; PULSE 64; RESP 16
[2023-07-23] MEDS: traMADol 50 MG Tablet PO ×3 (05:39→22:42)
[2023-07-23] MEDS: 0.9% Saline Lock 10 ML Syringe IV ×2 (05:40→22:43)
[2023-07-23] MEDS: Acetaminophen 500 MG Tablet 1000 MG PO ×3 (05:40→22:36)
[2023-07-23] MEDS: Levothyroxine 112 MCG Tablet PO (05:40)
[2023-07-23] MEDS: Pantoprazole Sodium 20 MG Tablet PO (09:59)
[2023-07-23] MEDS: Menthol/Lanolin/Calamine/Znox 113 GM Tube 1 APPLIC TOPICAL ×2 (09:59→22:43)
[2023-07-23] MEDS: Ezetimibe 10 MG Tablet PO (09:59)
[2023-07-23] MEDS: Senna/Docusate Sodium 1 Tablet PO ×2 (09:59→22:36)
[2023-07-23] MEDS: Clopidogrel Bisulfate 75 MG Tablet PO (09:59)
[2023-07-23] MEDS: Sertraline 50 MG Tablet PO (09:59)
[2023-07-23] MEDS: APIXABAN 2.5 MG TABLET (WCH) PO ×2 (09:59→22:36)
[2023-07-23] MEDS: Amiodarone 200 MG Tablet PO (10:52)
[2023-07-23] MEDS: Carvedilol 3.125 MG TABLET PO ×2 (10:52→22:35)
[2023-07-23] MEDS: amLODIPine 5 MG Tablet PO (10:52)
[2023-07-23] MEDS: Losartan Potassium 50 MG Tablet PO ×2 (10:53→22:36)
[2023-07-23 10:57] VITALS: BP 135/50; PULSE 58
[2023-07-23] MEDS: 0.9 % NaCl (Sterile) Posiflush 10 mL IV (10:58)
[2023-07-23 16:00] VITALS: BP 140/56; PULSE 57; RESP 18; TEMP 36.6; O2SAT 96
[2023-07-23] MEDS: Tamsulosin HCl 0.4 MG Capsule PO (17:38)
[2023-07-23] MEDS: Pravastatin 80 MG Tablet PO (22:36)
[2023-07-23] MEDS: MELATONIN 3 MG TABLET PO (22:36)
[2023-07-23] MEDS: traZODone 50 MG Tablet PO (22:42)
[2023-07-24] MEDS: Acetaminophen 500 MG Tablet 1000 MG PO ×3 (05:05→21:29)
[2023-07-24] MEDS: Levothyroxine 112 MCG Tablet PO (05:05)
[2023-07-24] MEDS: traMADol 50 MG Tablet PO ×2 (05:08→21:34)
[2023-07-24 06:54] VITALS: O2SAT 94
[2023-07-24] MEDS: Clopidogrel Bisulfate 75 MG Tablet PO (09:54)
[2023-07-24] MEDS: Losartan Potassium 50 MG Tablet PO ×2 (09:54→21:29)
[2023-07-24] MEDS: APIXABAN 2.5 MG TABLET (WCH) PO ×2 (09:54→21:29)
[2023-07-24] MEDS: Amiodarone 200 MG Tablet PO (09:54)
[2023-07-24] MEDS: Pantoprazole Sodium 20 MG Tablet PO (09:54)
[2023-07-24] MEDS: Sertraline 50 MG Tablet PO (09:54)
[2023-07-24] MEDS: amLODIPine 5 MG Tablet PO (09:54)
[2023-07-24] MEDS: Ezetimibe 10 MG Tablet PO (09:54)
[2023-07-24] MEDS: Senna/Docusate Sodium 1 Tablet PO ×2 (09:54→21:30)
[2023-07-24] MEDS: Carvedilol 3.125 MG TABLET PO ×2 (09:54→21:29)
[2023-07-24] MEDS: 0.9 % NaCl (Sterile) Posiflush 10 mL IV (10:00)
[2023-07-24] MEDS: Menthol/Lanolin/Calamine/Znox 113 GM Tube 1 APPLIC TOPICAL ×2 (10:04→21:30)
[2023-07-24 10:05] VITALS: BP 136/49; PULSE 57
[2023-07-24 15:10] VITALS: BP 155/50; PULSE 59; RESP 16; TEMP 36.2; O2SAT 94
[2023-07-24] MEDS: Tamsulosin HCl 0.4 MG Capsule PO (17:32)
[2023-07-24] MEDS: MELATONIN 3 MG TABLET PO (21:29)
[2023-07-24] MEDS: traZODone 50 MG Tablet PO (21:29)
[2023-07-24] MEDS: Pravastatin 80 MG Tablet PO (21:30)
[2023-07-24] MEDS: 0.9% Saline Lock 10 ML Syringe IV (21:33)
[2023-07-24 22:12] VITALS: O2SAT 97
[2023-07-25] MEDS: Levothyroxine 112 MCG Tablet PO (05:05)
[2023-07-25] MEDS: Acetaminophen 500 MG Tablet 1000 MG PO ×3 (05:05→20:33)
[2023-07-25] MEDS: Carvedilol 3.125 MG TABLET PO ×2 (08:33→20:32)
[2023-07-25] MEDS: Senna/Docusate Sodium 1 Tablet PO ×2 (08:33→20:32)
[2023-07-25] MEDS: Amiodarone 200 MG Tablet PO (08:33)
[2023-07-25] MEDS: APIXABAN 2.5 MG TABLET (WCH) PO ×2 (08:33→20:32)
[2023-07-25] MEDS: amLODIPine 5 MG Tablet PO (08:33)
[2023-07-25] MEDS: Losartan Potassium 50 MG Tablet PO ×2 (08:33→20:32)
[2023-07-25] MEDS: Ezetimibe 10 MG Tablet PO (08:34)
[2023-07-25] MEDS: Sertraline 50 MG Tablet PO (08:34)
[2023-07-25] MEDS: Clopidogrel Bisulfate 75 MG Tablet PO (08:34)
[2023-07-25] MEDS: Pantoprazole Sodium 20 MG Tablet PO (08:34)
[2023-07-25] MEDS: Menthol/Lanolin/Calamine/Znox 113 GM Tube 1 APPLIC TOPICAL ×2 (08:38→22:26)
[2023-07-25 14:11] VITALS: BP 130/52; PULSE 60; RESP 16; TEMP 36.4; O2SAT 95
[2023-07-25] MEDS: Tamsulosin HCl 0.4 MG Capsule PO (17:57)
[2023-07-25] MEDS: MELATONIN 3 MG TABLET PO (20:32)
[2023-07-25] MEDS: Pravastatin 80 MG Tablet PO (20:32)
[2023-07-25] MEDS: traZODone 50 MG Tablet PO (20:32)
[2023-07-25] MEDS: traMADol 50 MG Tablet PO (20:35)
[2023-07-25] MEDS: 0.9% Saline Lock 10 ML Syringe IV (20:36)
[2023-07-25 20:46] VITALS: BP 129/52; PULSE 62
[2023-07-26] MEDS: Acetaminophen 500 MG Tablet 1000 MG PO ×3 (05:19→22:36)
[2023-07-26] MEDS: Levothyroxine 112 MCG Tablet PO (05:19)
[2023-07-26 08:33] VITALS: BP 168/60; PULSE 68; RESP 16; TEMP 36.2; O2SAT 98
[2023-07-26] MEDS: Ezetimibe 10 MG Tablet PO (08:35)
[2023-07-26] MEDS: Pantoprazole Sodium 20 MG Tablet PO (08:35)
[2023-07-26] MEDS: amLODIPine 5 MG Tablet PO (08:35)
[2023-07-26] MEDS: Clopidogrel Bisulfate 75 MG Tablet PO (08:35)
[2023-07-26] MEDS: Sertraline 50 MG Tablet PO (08:35)
[2023-07-26] MEDS: Losartan Potassium 50 MG Tablet PO ×2 (08:36→22:36)
[2023-07-26] MEDS: APIXABAN 2.5 MG TABLET (WCH) PO ×2 (08:36→22:36)
[2023-07-26] MEDS: Amiodarone 200 MG Tablet PO (08:36)
[2023-07-26] MEDS: Menthol/Lanolin/Calamine/Znox 113 GM Tube 1 APPLIC TOPICAL ×2 (08:36→22:26)
[2023-07-26] MEDS: Senna/Docusate Sodium 1 Tablet PO ×2 (08:36→22:36)
[2023-07-26] MEDS: Carvedilol 3.125 MG TABLET PO ×2 (08:36→22:36)
[2023-07-26] MEDS: Glycerin/Hypromellose/PEG400 15 ml Bottle 2 DRP EACH EYE ×2 (08:37→22:37)
[2023-07-26 08:43] VITALS: RESP 16; O2SAT 97
[2023-07-26 09:27] VITALS: BMI 22.8
[2023-07-26] MEDS: 0.9% Saline Lock 10 ML Syringe IV ×2 (11:28→22:30)
--- NOTE | 2023-07-26 15:30 | CASEMGMT ---
Social Work SW met with patient and daughter in law at bedside to discuss transition of care plans. Patient reported significant improvement in pain except when she is asleep lying on her back. Patient informed SW that she feels a lot better. Patient informed SW that her goal is to return home. SW informed patient and DIL that the patient will need 24/hr care and home health care for continued support in home. Patient informed SW that she would like home health care services. Patient requested for PT/OT/SN. SW recommended for continued Speech therapy. Patient is agreeable to ST in home. SW discussed concerns for patient cognition. Patient's cognition has improved with speech therapy, but the patient will continue to require support for supervision. Patient's DIL informed SW that the patient's son will be on vacation 08/04 for week. Family would like to provide 24/hr care in the home 1 week post discharge with home health care. SW informed patient that therapy is recommending a FWW at discharge. Patient has no preference for DME provider. SW [place] [facility] [place] and daughter agreed that discharge to home scheduled for 08/05/2023 SW provided patient and DIL with a list of [facility] providers within patient preferred geographic area ([place]), medical needs, and insurance network via [employer] Guide. SW will continue to follow to assist with discharge planning. SW completed Notice of Medicare Non-Coverage of current [place] [facility] services end date 08/04/2023. Patient provided verbal understanding and signature was provided .SW provided patient with a copy of [facility]. Discharge: Home with Home Health PT/OT/ST/SN 24/hr care provided by family. HUEY Blackburn
[2023-07-26] MEDS: Tamsulosin HCl 0.4 MG Capsule PO (17:46)
--- NOTE | 2023-07-26 20:14 | DS.PCM_ITS ---
Providers Date of Admission: 07/06/23 Primary Care Physician: Dr. Kenji Osei MD Consultations 07/11/23 19:58 Consult: Pain Management Routine Consulting Provider: Allyson Fabian Reason for Consult: L4 COMPRESSION FX EMERGENT Consult: No MD Notified: Yes Date Notified: 07/11/23 Time Notified: 19:59 Method of Notification: Answering Service Comments:: or Dr. Fabian Reason For Visit: LEFT HIP FRACTURE Diagnosis Discharge Diagnosis (1) Collapsed vertebra, not elsewhere classified, site unspecified, initial encounter for fracture: Status: Acute Code(s): M48.50XA - Collapsed vertebra, not elsewhere classified, site unspecified, initial encounter for fracture Plan 82 year old female with below past medical history hospitalized for left hip fracture, underwent left hip hemiarthroplasty 07/03/[address] Sanchez, complicated by acute respiratory failure with hypoxia requiring intubation, agitation, admitted to TCU with debility, here for rehabilitation, strengthening, prior to discharge home alone. * Debility - PT/OT. * Pain - Tylenol 1000mg q6 prn pain (1-3), Tramadol 50mg tid prn pain (4-10). * Bowel - senna/colace 1 tablet bid, Dulcolax 10mg pr daily prn. * Adult immunization - Administer pneumonia vaccine, covid vaccine, flu vaccine as appropriate. * DVT prophylaxis - on Eliquis. * Atrial flutter - Coreg 3.125mg bid, Amiodarone 200mg daily, Eliquis 2.5mg q12. * Hypertension - Coreg 3.125mg bid, Amlodipine 5mg daily. * Coronary artery disease - Coreg 3.125mg bid, Losartan 50mg bid, Plavix 75mg daily, Eliquis 2.5mg q12, NTG 0.4mg sl q5m prn. * Hyperlipidemia - Pravastatin 80mg qhs, Zetia 10mg daily. * Insomnia - Melatonin 10mg qhs, Hydroxyzine 50mg qhs prn. * Hypothyroidism - Levothyroxine 112mdcg daily. * Nausea - Zofran odt 4mg q8 prn. * GERD - Pantoprazole 20mg daily. * Depression - Sertraline 50mg daily, stable chronic fpc use, GDR not recommended. Medications at Discharge Home Medications Handicap placard #1 ea 09/29/21 sertraline 50 mg tablet 50 mg PO DAILY ANXIETY 05/06/21 nitroglycerin 0.4 mg sublingual tablet 0.4 mg sublingual Q5M PRN Chest Pain #25 tabs 02/25/22 apixaban 2.5 mg tablet (Eliquis) 2.5 mg PO Q12H blood thinner 04/26/22 melatonin 10 mg tablet 10 mg PO QHS SLEEP 04/26/22 omeprazole 20 mg capsule,delayed release 20 mg PO DAILY GERD 04/26/22 amiodarone 200 mg tablet 200 mg PO DAILY dose reduced at [facility]. 05/04/22 clopidogrel 75 mg tablet 75 mg PO DAILY prevent clots 06/13/22 losartan 50 mg tablet 50 mg PO BID BP 06/13/22 pravastatin 80 mg tablet 80 mg PO DAILY cholesterol 06/13/22 ondansetron 4 mg disintegrating tablet 4 mg PO Q8H PRN PRN Nausea #14 tabs 02/09/23 amlodipine 5 mg tablet 5 mg PO DAILY BP 06/30/23 carvedilol 6.25 mg tablet 3.125 mg PO BID BP/heart rate 06/30/23 ezetimibe 10 mg tablet 10 mg PO DAILY cholesterol 06/30/23 levothyroxine 112 mcg tablet 112 mcg PO DAILY thyroid 06/30/23 acetaminophen 500 mg tablet 1,000 mg (2 x 500 mg) PO Q8 #0 tabs 07/26/23 peg [id number] 1 %-0.2 %-0.2 % eye drops (Artificial Tears ([id number])) 2 drp EACH EYE Q1H PRN DRY EYES #0 mL 07/26/23 sodium chloride 0.65 % nasal spray aerosol (Deep Sea Nasal) 2 spray NASAL TID PRN PRN NASAL DRYNESS #0 mL 07/26/23 tamsulosin 0.4 mg capsule 0.4 mg PO DAILY@1730 30 days #30 caps 07/26/23 tramadol 50 mg tablet 50 mg PO Q6H PRN PRN Pain Score 4-10 7 days #28 tabs 07/26/23 trazodone 50 mg tablet 50 mg PO QHS 30 days #30 tabs 07/26/23 Hospital Course Operations None Procedures None Summary of Care Provided Minutes Spent on Discharge: 35 Hospital Course: 82 year old female with below past medical history hospitalized for left hip fracture, underwent left hip hemiarthroplasty 07/03/[address] Sanchez, complicated by acute respiratory failure with hypoxia requiring intubation, agitation, admitted to TCU with debility, here for rehabilitation, strengthening, prior to discharge home alone. 07/21/2023 Dr. Kennedy performed L5 kyphoplasty. Discharge home 08/05/2023, [facility] PT/OT/ST/SN, 24 hour care provided by family, Josiane FWW. FWW: Patient is unsafe to use a cane and requires a walker for ambulation in the home and the community. Physical Exam Const alert General Appearance: cooperative HEENT normocephalic Eyes PERRL and EOMs intact bilaterally Neck supple, no JVD and no carotid bruits Resp normal respiratory effort, normal air movement and clear to auscultation bilaterally Cardio regular rate and regular rhythm GI normal to inspection, nondistended, normoactive bowel sounds, non-tender and non-distended Extremity normal capillary refill General Extremity: Negative for edema Skin no rashes or lesions noted General Skin Exam: no breakdown Psych affect normal Appearance: appropriate Weight / BMI Weight Weight: 58.423 kg Body Mass Index (BMI) 22.8 ABG / Lab / Microbiology Data 07/21/23 05:41 07/21/23 05:41 Microbiology: Microbiology 07/12/23 10:52 Urine Catheter - Kay Urine Culture - Final Culture exhibits no growth. D/C Instructions Please Follow Up With: Salo Hope PA-C Meaningful Use Info Meaningful Use Meaningful Use Diagnoses (Choose all that apply): None applicable Ischemic Stroke Statin Dosing Therapy Reference: STATIN DOSE THERAPY REFERENCE: * Patients > 75 years receive moderate or high dose statin therapy. * Patients 75 years or YOUNGER should receive HIGH intensity statin dose unless contraindicated. You will be required to document reason for non-treatment if statin daily dose does not meet guidelines. HIGH DOSE STATIN THERAPY DAILY Atorvastatin > than or = to 40 mg Rosuvastatin > than or = to 20 mg Amlodipine + Atorvastatin > than or = to 2.5/40 mg Ezetimibe + Simvastatin 10/80 mg Simvastatin 80mg Discharge Plan Admission Admit Date/Time: 07/06/23 12:49 Primary Reason for Your Visit: Debility. Attending Provider: Cliff Klein Chi Primary Care Provider: Kenji Osei Consulting Providers: Allyson Fabian Instructions Additional Instructions / Restrictions: Discharge home 08/05/2023, [facility] PT/OT/ST/SN, 24 hour care provided by family, Josiane FWW. FWW: Patient is unsafe to use a cane and requires a walker for ambulation in the home and the community. Discharge Orders/Prescriptions Prescriptions: New trazodone 50 mg Tablet 50 mg PO QHS 30 Days Qty: 30 0RF tramadol 50 mg Tablet 50 mg PO Q6H PRN PRN (Reason: Pain Score 4-10) 7 Days Qty: 28 0RF acetaminophen 500 mg Tablet 1,000 mg PO Q8 Qty: 0 0RF tamsulosin 0.4 mg Capsule 0.4 mg PO DAILY@1730 30 Days Qty: 30 0RF Artificial Tears(or-[id number]) 1-0.2-0.2 % Drops 2 drp EACH EYE Q1H PRN (Reason: DRY EYES) Qty: 0 0RF Deep Sea Nasal 0.65 % Aerosol,[place] 2 spray NASAL TID PRN PRN (Reason: NASAL DRYNESS) Qty: 0 0RF Continued sertraline 50 mg tablet 50 mg PO DAILY Eliquis 2.5 mg tablet 2.5 mg PO Q12H omeprazole 20 mg capsule,delayed release(DR/EC) 20 mg PO DAILY Patient Comments: STOMACH MEDICINE, ACID REFLUX melatonin 10 mg tablet 10 mg PO QHS losartan 50 mg Tablet 50 mg PO BID clopidogrel 75 mg tablet 75 mg PO DAILY pravastatin 80 mg Tablet 80 mg PO DAILY ondansetron 4 mg tablet,disintegrating 4 mg PO Q8H PRN PRN (Reason: Nausea) Qty: 14 0RF carvedilol 6.25 mg tablet 3.125 mg PO BID amlodipine 5 mg tablet 5 mg PO DAILY levothyroxine 112 mcg tablet 112 mcg PO DAILY ezetimibe 10 mg tablet 10 mg PO DAILY nitroglycerin 0.4 mg tablet, sublingual 0.4 mg SUBLINGUAL Q5M PRN (Reason: Chest Pain) Qty: 25 1RF amiodarone 200 mg tablet 200 mg PO DAILY Discontinued hydroxyzine HCl 50 mg tablet 50 mg PO QHS PRN (Reason: Sleep) Patient Comments: TAKE 1 TABLET BY MOUTH AT BEDTIME NEEDED FOR ANXIETY/INSOMNIA acetaminophen [Tylenol] 325 mg Tablet 650 mg PO Q6H PRN (Reason: Pain) tramadol 50 mg tablet 50 mg PO TID PRN No Action (DME) Handicap placard See Rx Instructions .Route .MEDSUPPLY Qty: 1 0RF Rx Instructions: Lifetime Referrals / Follow Up: Allyson Fabian MD [Med Staff - Active Staff] - (kyphoplasty done by Marcia on 07/20 needs f/u after TCU DC) Kenji Osei MD [Primary Care Provider] - Disposition Disposition (needs filled in before D/C Order can be placed): Home Health Service
[2023-07-26] MEDS: MELATONIN 3 MG TABLET PO (22:36)
[2023-07-26] MEDS: traZODone 50 MG Tablet PO (22:36)
[2023-07-26] MEDS: Pravastatin 80 MG Tablet PO (22:36)
[2023-07-26] MEDS: traMADol 50 MG Tablet PO (22:43)
[2023-07-27 04:31] VITALS: PULSE 70; RESP 16; O2SAT 98
[2023-07-27] MEDS: Levothyroxine 112 MCG Tablet PO (05:58)
[2023-07-27] MEDS: Acetaminophen 500 MG Tablet 1000 MG PO ×3 (05:58→20:49)
[2023-07-27] MEDS: Sertraline 50 MG Tablet PO (10:53)
[2023-07-27] MEDS: Senna/Docusate Sodium 1 Tablet PO ×2 (10:53→20:49)
[2023-07-27] MEDS: Pantoprazole Sodium 20 MG Tablet PO (10:53)
[2023-07-27] MEDS: Clopidogrel Bisulfate 75 MG Tablet PO (10:53)
[2023-07-27] MEDS: APIXABAN 2.5 MG TABLET (WCH) PO ×2 (10:53→20:49)
[2023-07-27] MEDS: Amiodarone 200 MG Tablet PO (10:53)
[2023-07-27] MEDS: Ezetimibe 10 MG Tablet PO (10:53)
[2023-07-27] MEDS: Carvedilol 3.125 MG TABLET PO ×2 (10:53→20:47)
[2023-07-27] MEDS: amLODIPine 5 MG Tablet PO (10:53)
[2023-07-27] MEDS: Losartan Potassium 50 MG Tablet PO ×2 (10:53→20:48)
[2023-07-27] MEDS: 0.9 % NaCl (Sterile) Posiflush 10 mL IV (10:57)
[2023-07-27] MEDS: Menthol/Lanolin/Calamine/Znox 113 GM Tube 1 APPLIC TOPICAL ×2 (10:58→20:50)
[2023-07-27 11:12] VITALS: BP 136/47; PULSE 57
[2023-07-27 14:37] VITALS: BP 141/55; PULSE 57; RESP 16; TEMP 36.4; O2SAT 95
[2023-07-27] MEDS: Tamsulosin HCl 0.4 MG Capsule PO (16:50)
[2023-07-27] MEDS: 0.9% Saline Lock 10 ML Syringe IV (20:43)
[2023-07-27] MEDS: traMADol 50 MG Tablet PO (20:43)
[2023-07-27] MEDS: MELATONIN 3 MG TABLET PO (20:48)
[2023-07-27] MEDS: Pravastatin 80 MG Tablet PO (20:49)
[2023-07-27] MEDS: traZODone 50 MG Tablet PO (20:49)
[2023-07-27] MEDS: Glycerin/Hypromellose/PEG400 15 ml Bottle 2 DRP EACH EYE (20:51)
[2023-07-27 20:55] VITALS: BP 149/55; PULSE 61
[2023-07-28 06:00] LABS: Absolute Lymphocyte Count 1.28 X10^3/uL (0.83-4.51); Absolute Neutrophil Count 5.1 X10^3/uL (2.0-7.7); Basophil# 0.07 X10^3/uL; Basophil% 0.9 % (0-1); Eosinophil# 0.44 X10^3/uL; Eosinophils% 5.4 % (0-5); Hematocrit 33.2 % (37-47); Hemoglobin 10.1 g/dL (12.0-15.0); Lymphocyte # 1.28 X10^3/ul (0.83-4.51); Lymphocyte % 15.8 % (19-41); Mean Corp Hgb Conc 30.4 g/dL (32-36); Mean Corpuscular Hgb 27.7 pg (27.0-32.0); Mean Platelet Vol. 8.8 fl (6.2-12.0); Monocyte% 14.8 % (0-10); NRBC Flagged by Analyzer 0 % (0-5); Neutrophil % 62.9 % (47-70); Platelet Count 383 K/mm3 (150-450); RBC Distribution Width CV 15.9 % (11.6-14.6); RBC Distribution Width SD 51.9 fl (35.1-43.9); Red Blood Count 3.65 M/mm3 (4.2-5.4); White Blood Count 8.1 K/mm3 (4.4-11.0)
[2023-07-28] MEDS: Levothyroxine 112 MCG Tablet PO (06:16)
[2023-07-28] MEDS: Acetaminophen 500 MG Tablet 1000 MG PO ×3 (06:16→21:18)
[2023-07-28 06:37] LABS: Anion Gap 4 (5-15); BUN 11 mg/dL (7-18); BUN/Creat Ratio 13.6 RATIO (10-20); Calcium,Total 8.2 mg/dL (8.5-10.1); Chloride 107 mmol/L (98-107); Creatinine, Serum 0.81 mg/dL (0.55-1.02); EST Glomerular Filtration Rate 72 mL/min (>60); Est Glom Filt Rate - Afr Amer 87 mL/min (>60); Glucose 94 mg/dL (74-106); Potassium 3.4 mmol/L (3.5-5.1); Sodium Level 139 mmol/L (136-145)
[2023-07-28] MEDS: Potassium Chloride Oral Tablet 20 MEQ PO (09:52)
[2023-07-28] MEDS: Amiodarone 200 MG Tablet PO (09:53)
[2023-07-28] MEDS: Clopidogrel Bisulfate 75 MG Tablet PO (09:53)
[2023-07-28] MEDS: Sertraline 50 MG Tablet PO (09:53)
[2023-07-28] MEDS: Ezetimibe 10 MG Tablet PO (09:53)
[2023-07-28] MEDS: Losartan Potassium 50 MG Tablet PO ×2 (09:53→21:19)
[2023-07-28] MEDS: Pantoprazole Sodium 20 MG Tablet PO (09:53)
[2023-07-28] MEDS: Carvedilol 3.125 MG TABLET PO ×2 (09:53→21:18)
[2023-07-28] MEDS: Senna/Docusate Sodium 1 Tablet PO ×2 (09:53→21:18)
[2023-07-28] MEDS: APIXABAN 2.5 MG TABLET (WCH) PO ×2 (09:53→21:17)
[2023-07-28] MEDS: amLODIPine 5 MG Tablet PO (09:53)
[2023-07-28] MEDS: 0.9 % NaCl (Sterile) Posiflush 10 mL IV (09:56)
[2023-07-28] MEDS: Menthol/Lanolin/Calamine/Znox 113 GM Tube 1 APPLIC TOPICAL ×2 (15:11→21:19)
[2023-07-28] MEDS: Tamsulosin HCl 0.4 MG Capsule PO (16:56)
[2023-07-28 17:37] VITALS: BP 124/51; PULSE 55; RESP 16; TEMP 36.2; O2SAT 96
[2023-07-28] MEDS: MELATONIN 3 MG TABLET PO (21:18)
[2023-07-28] MEDS: Pravastatin 80 MG Tablet PO (21:19)
[2023-07-28] MEDS: traZODone 50 MG Tablet PO (21:19)
[2023-07-29 05:00] VITALS: PULSE 68; RESP 16; O2SAT 96
[2023-07-29] MEDS: Acetaminophen 500 MG Tablet 1000 MG PO ×3 (05:16→21:23)
[2023-07-29] MEDS: Levothyroxine 112 MCG Tablet PO (05:16)
[2023-07-29 08:17] LABS: Anion Gap 10 (5-15); BUN 13 mg/dL (7-18); BUN/Creat Ratio 16.5 RATIO (10-20); Calcium,Total 8.7 mg/dL (8.5-10.1); Chloride 105 mmol/L (98-107); Creatinine, Serum 0.79 mg/dL (0.55-1.02); EST Glomerular Filtration Rate 74 mL/min (>60); Est Glom Filt Rate - Afr Amer 90 mL/min (>60); Estimated Creatinine Clearance 44.85 ml/min; Glucose 93 mg/dL (74-106); Potassium 3.6 mmol/L (3.5-5.1); Sodium Level 138 mmol/L (136-145)
[2023-07-29] MEDS: Losartan Potassium 50 MG Tablet PO ×2 (10:16→21:23)
[2023-07-29] MEDS: Carvedilol 3.125 MG TABLET PO ×2 (10:16→21:23)
[2023-07-29] MEDS: Amiodarone 200 MG Tablet PO (10:16)
[2023-07-29] MEDS: APIXABAN 2.5 MG TABLET (WCH) PO ×2 (10:17→21:24)
[2023-07-29] MEDS: Senna/Docusate Sodium 1 Tablet PO ×2 (10:17→21:24)
[2023-07-29] MEDS: Pantoprazole Sodium 20 MG Tablet PO (10:17)
[2023-07-29] MEDS: Clopidogrel Bisulfate 75 MG Tablet PO (10:17)
[2023-07-29] MEDS: amLODIPine 5 MG Tablet PO (10:17)
[2023-07-29] MEDS: Ezetimibe 10 MG Tablet PO (10:17)
[2023-07-29] MEDS: Menthol/Lanolin/Calamine/Znox 113 GM Tube 1 APPLIC TOPICAL ×2 (10:18→21:18)
[2023-07-29] MEDS: Sertraline 50 MG Tablet PO (10:18)
--- NOTE | 2023-07-29 13:04 | NURSING ---
Updated that a patient on the unit tested positive for covid. Patient does not want family called, states she will update them.
[2023-07-29 14:03] VITALS: BP 149/53; PULSE 63; RESP 14; TEMP 36.6; O2SAT 92
[2023-07-29] MEDS: Tamsulosin HCl 0.4 MG Capsule PO (18:01)
[2023-07-29] MEDS: traMADol 50 MG Tablet PO (21:21)
[2023-07-29] MEDS: traZODone 50 MG Tablet PO (21:23)
[2023-07-29] MEDS: Pravastatin 80 MG Tablet PO (21:23)
[2023-07-29] MEDS: MELATONIN 3 MG TABLET PO (21:23)
[2023-07-29 21:27] VITALS: BP 146/54; PULSE 62; RESP 16
--- NOTE | 2023-07-29 23:34 | NURSING ---
patient requesting [facility] for tuesday08/02/23 a couple hours with family member to find medical equipment needed for home/discharge. Written communication left for Dr. Klein regarding patient request.
[2023-07-30] MEDS: Levothyroxine 112 MCG Tablet PO (06:10)
[2023-07-30] MEDS: Acetaminophen 500 MG Tablet 1000 MG PO ×3 (06:10→21:34)
[2023-07-30 06:28] VITALS: PULSE 67; RESP 18; O2SAT 96
[2023-07-30] MEDS: Carvedilol 3.125 MG TABLET PO ×2 (09:39→21:37)
[2023-07-30] MEDS: Amiodarone 200 MG Tablet PO (09:39)
[2023-07-30] MEDS: Losartan Potassium 50 MG Tablet PO ×2 (09:39→21:37)
[2023-07-30] MEDS: amLODIPine 5 MG Tablet PO (09:40)
[2023-07-30] MEDS: APIXABAN 2.5 MG TABLET (WCH) PO (09:40)
[2023-07-30] MEDS: Pantoprazole Sodium 20 MG Tablet PO (09:41)
[2023-07-30] MEDS: Senna/Docusate Sodium 1 Tablet PO ×2 (09:41→21:34)
[2023-07-30] MEDS: Clopidogrel Bisulfate 75 MG Tablet PO (09:41)
[2023-07-30] MEDS: Ezetimibe 10 MG Tablet PO (09:41)
[2023-07-30] MEDS: Sertraline 50 MG Tablet PO (09:42)
[2023-07-30] MEDS: Menthol/Lanolin/Calamine/Znox 113 GM Tube 1 APPLIC TOPICAL ×2 (09:47→21:36)
--- NOTE | 2023-07-30 11:47 | NURSING ---
Patient had nose bleed this morning after breakfast, not heavy bleed. Ice applied. Bleeding stopped. Is currently on Eliquis 2.5mg bid and Clopidrogel. Will continue to monitor.
[2023-07-30 16:00] VITALS: BP 146/76; PULSE 55; RESP 16; TEMP 36.6; O2SAT 97
[2023-07-30] MEDS: Tamsulosin HCl 0.4 MG Capsule PO (17:06)
[2023-07-30] MEDS: Oxymetazoline 0.05% 1 SPRAY SPRAY.BTL 2 SPRAY NASAL (17:06)
[2023-07-30] MEDS: traZODone 50 MG Tablet PO (21:34)
[2023-07-30] MEDS: Pravastatin 80 MG Tablet PO (21:34)
[2023-07-30] MEDS: MELATONIN 3 MG TABLET PO (21:34)
[2023-07-30] MEDS: traMADol 50 MG Tablet PO (21:35)
[2023-07-31] MEDS: Acetaminophen 500 MG Tablet 1000 MG PO ×3 (06:18→22:03)
[2023-07-31] MEDS: Levothyroxine 112 MCG Tablet PO (06:18)
[2023-07-31] MEDS: Losartan Potassium 50 MG Tablet PO ×2 (09:58→22:03)
[2023-07-31] MEDS: Senna/Docusate Sodium 1 Tablet PO ×2 (09:58→22:03)
[2023-07-31] MEDS: Carvedilol 3.125 MG TABLET PO ×2 (09:58→22:03)
[2023-07-31] MEDS: amLODIPine 5 MG Tablet PO (09:58)
[2023-07-31] MEDS: Clopidogrel Bisulfate 75 MG Tablet PO (09:58)
[2023-07-31] MEDS: Amiodarone 200 MG Tablet PO (09:58)
[2023-07-31] MEDS: Pantoprazole Sodium 20 MG Tablet PO (09:59)
[2023-07-31] MEDS: Sertraline 50 MG Tablet PO (09:59)
[2023-07-31] MEDS: Ezetimibe 10 MG Tablet PO (09:59)
[2023-07-31] MEDS: Menthol/Lanolin/Calamine/Znox 113 GM Tube 1 APPLIC TOPICAL ×2 (10:07→22:08)
[2023-07-31 15:21] VITALS: BP 153/59; PULSE 57; RESP 16; TEMP 36.6; O2SAT 96
[2023-07-31] MEDS: Tamsulosin HCl 0.4 MG Capsule PO (17:11)
[2023-07-31 20:00] VITALS: PULSE 57; O2SAT 97
[2023-07-31] MEDS: traMADol 50 MG Tablet PO (22:03)
[2023-07-31] MEDS: MELATONIN 3 MG TABLET PO (22:03)
[2023-07-31] MEDS: Pravastatin 80 MG Tablet PO (22:03)
[2023-07-31] MEDS: traZODone 50 MG Tablet PO (22:03)
[2023-08-01 05:45] VITALS: PULSE 68; O2SAT 96
[2023-08-01] MEDS: Acetaminophen 500 MG Tablet 1000 MG PO ×3 (05:59→22:08)
[2023-08-01] MEDS: Levothyroxine 112 MCG Tablet PO (05:59)
[2023-08-01 07:50] VITALS: BP 128/50; PULSE 62; RESP 16; TEMP 36.6; O2SAT 96
[2023-08-01] MEDS: amLODIPine 5 MG Tablet PO (07:54)
[2023-08-01] MEDS: Clopidogrel Bisulfate 75 MG Tablet PO (07:54)
[2023-08-01] MEDS: Amiodarone 200 MG Tablet PO (07:54)
[2023-08-01] MEDS: Losartan Potassium 50 MG Tablet PO ×2 (07:54→22:08)
[2023-08-01] MEDS: Senna/Docusate Sodium 1 Tablet PO ×2 (07:54→22:08)
[2023-08-01] MEDS: Ezetimibe 10 MG Tablet PO (07:55)
[2023-08-01] MEDS: Pantoprazole Sodium 20 MG Tablet PO (07:55)
[2023-08-01] MEDS: Menthol/Lanolin/Calamine/Znox 113 GM Tube 1 APPLIC TOPICAL ×2 (07:55→22:09)
[2023-08-01] MEDS: Carvedilol 3.125 MG TABLET PO ×2 (07:55→22:08)
[2023-08-01] MEDS: Sertraline 50 MG Tablet PO (07:55)
--- NOTE | 2023-08-01 15:36 | CASEMGMT ---
Social Work SW met with patient and daughter in law at bedside to discuss home health care provider choice. Patient provided choice of [facility] and [facility]. THOR submitted referral to [facility] via phone. Patient's daughter informed THOR that the patient refused to accept walker from [facility] upon delivery due to requesting for a wheelchair. Patient informed SW that she has a walker provided by a friend, but she would like wheelchair for long distance. Patient's daughter informed patient to take the walker due to insurance. SW informed patient that walker was approved by insurance. Patient requested for walker to be brought back to bedside. THOR contacted [facility]. SW awaiting follow up from home health care agency regarding acceptance for home health care services PT/OT/ST/SN. HUEY Chambers
[2023-08-01] MEDS: Tamsulosin HCl 0.4 MG Capsule PO (17:18)
--- NOTE | 2023-08-01 17:25 | NURSING ---
pt c/o urinary frequency and slight burning. dr cervantes notified, new order for UA C/S.
[2023-08-01 17:59] LABS: Bacteria 0 SEEN /hpf (None Seen); Red Blood Cells-Urine 0 SEEN /hpf (0-5)
[2023-08-01 18:22] LABS: Color, Urine Yellow (Yellow); Glucose, Dipstick Normal (Normal); Ketone-Dipstick Negative (Negative); Leukocyte Esterase-Dipstick Negative /ul (Negative); Nitrite-Dipstick Negative (Negative); Occult Blood-Urine Negative /ul (Negative); Protein-Dipstick 15 mg/dl (Negative); Specific Gravity, Urine 1.015 (1.002-1.030); Urine Bilirubin Dipstick Negative (Negative); Urine Clarity Clear (Clear); Urine Urobilinogen Normal (Normal)
[2023-08-01 18:35] LABS: Mucous, Urine 1+ /hpf (<or=2+); Squamous Epithelial Cells - UA 0-5 SEEN /hpf (5-10); White Blood Cells 0-5 SEEN /hpf (0-5)
[2023-08-01] MEDS: Pravastatin 80 MG Tablet PO (22:08)
[2023-08-01] MEDS: traZODone 50 MG Tablet PO (22:08)
[2023-08-01] MEDS: MELATONIN 3 MG TABLET PO (22:09)
[2023-08-01] MEDS: traMADol 50 MG Tablet PO (22:13)
[2023-08-02] MEDS: Acetaminophen 500 MG Tablet 1000 MG PO ×3 (05:32→20:54)
[2023-08-02] MEDS: Levothyroxine 112 MCG Tablet PO (05:37)
[2023-08-02] MEDS: Oxymetazoline 0.05% 1 SPRAY SPRAY.BTL 2 SPRAY NASAL (07:52)
[2023-08-02] MEDS: Ezetimibe 10 MG Tablet PO (07:57)
[2023-08-02] MEDS: Amiodarone 200 MG Tablet PO (07:57)
[2023-08-02] MEDS: Carvedilol 3.125 MG TABLET PO ×2 (07:57→20:54)
[2023-08-02] MEDS: amLODIPine 5 MG Tablet PO (07:57)
[2023-08-02] MEDS: Sertraline 50 MG Tablet PO (07:57)
[2023-08-02] MEDS: Pantoprazole Sodium 20 MG Tablet PO (07:57)
[2023-08-02] MEDS: Clopidogrel Bisulfate 75 MG Tablet PO (07:57)
[2023-08-02] MEDS: Senna/Docusate Sodium 1 Tablet PO ×2 (07:57→20:54)
[2023-08-02] MEDS: Losartan Potassium 50 MG Tablet PO ×2 (07:57→20:54)
[2023-08-02 08:02] VITALS: BP 159/68; PULSE 57; RESP 16; TEMP 36.6; O2SAT 97
[2023-08-02 08:03] VITALS: PULSE 57; RESP 16; O2SAT 97
--- NOTE | 2023-08-02 10:55 | CASEMGMT ---
Social Work THOR received update from [facility] Admission, Hollie that the patient has been accepted for home health care services PT/OT/SN/ST. Per Admission, Hollie the patient's home health care service will start care on 08/08/2023. THOR notified patient and family at bedside. THOR received notification from [facility] that walker can be delivered at bedside. Discharge 08/05/2023- Home with [facility] PT/OT/ST/SN SOC on 08/07 HUEY Chambers
[2023-08-02] MEDS: Sodium Chloride 0.65% 1 SPRAY SPRAY.BTL 2 SPRAY NASAL ×2 (14:28→21:02)
[2023-08-02 15:00] VITALS: BMI 22.5
[2023-08-02] MEDS: Tamsulosin HCl 0.4 MG Capsule PO (16:42)
[2023-08-02 20:40] VITALS: BP 141/56; PULSE 80
[2023-08-02] MEDS: traZODone 50 MG Tablet PO (20:54)
[2023-08-02] MEDS: Menthol/Lanolin/Calamine/Znox 113 GM Tube 1 APPLIC TOPICAL (20:54)
[2023-08-02] MEDS: MELATONIN 3 MG TABLET PO (20:54)
[2023-08-02] MEDS: Pravastatin 80 MG Tablet PO (20:54)
[2023-08-02] MEDS: Glycerin/Hypromellose/PEG400 15 ml Bottle 2 DRP EACH EYE (20:58)
[2023-08-03] MEDS: Acetaminophen 500 MG Tablet 1000 MG PO ×3 (06:58→21:46)
[2023-08-03] MEDS: Levothyroxine 112 MCG Tablet PO (06:58)
[2023-08-03] MEDS: Sodium Chloride 0.65% 1 SPRAY SPRAY.BTL 2 SPRAY NASAL (09:02)
[2023-08-03] MEDS: amLODIPine 5 MG Tablet PO (09:03)
[2023-08-03] MEDS: Amiodarone 200 MG Tablet PO (09:03)
[2023-08-03] MEDS: Carvedilol 3.125 MG TABLET PO ×2 (09:03→21:46)
[2023-08-03] MEDS: Losartan Potassium 50 MG Tablet PO ×2 (09:03→21:46)
[2023-08-03] MEDS: Senna/Docusate Sodium 1 Tablet PO ×2 (09:04→21:46)
[2023-08-03] MEDS: Pantoprazole Sodium 20 MG Tablet PO (09:04)
[2023-08-03] MEDS: Ezetimibe 10 MG Tablet PO (09:04)
[2023-08-03] MEDS: Clopidogrel Bisulfate 75 MG Tablet PO (09:04)
[2023-08-03] MEDS: Sertraline 50 MG Tablet PO (09:04)
[2023-08-03] MEDS: Menthol/Lanolin/Calamine/Znox 113 GM Tube 1 APPLIC TOPICAL ×2 (09:06→21:47)
[2023-08-03 09:59] VITALS: BP 144/52; PULSE 55; RESP 14; TEMP 36.8; O2SAT 99
[2023-08-03] MEDS: Tamsulosin HCl 0.4 MG Capsule PO (16:59)
[2023-08-03] MEDS: Magnesium Chloride 64 MG Delay Rel.Tablet 128 MG PO (16:59)
[2023-08-03] MEDS: MELATONIN 3 MG TABLET PO (21:46)
[2023-08-03] MEDS: Pravastatin 80 MG Tablet PO (21:46)
[2023-08-03] MEDS: traZODone 50 MG Tablet PO (21:46)
[2023-08-03] MEDS: Glycerin/Hypromellose/PEG400 15 ml Bottle 2 DRP EACH EYE (21:47)
[2023-08-03 21:50] VITALS: RESP 16
[2023-08-03 21:51] VITALS: BP 151/60; PULSE 61
[2023-08-04] MEDS: Levothyroxine 112 MCG Tablet PO (05:00)
[2023-08-04] MEDS: Acetaminophen 500 MG Tablet 1000 MG PO ×3 (05:00→22:06)
[2023-08-04 05:29] LABS: Absolute Lymphocyte Count 1.45 X10^3/uL (0.83-4.51); Basophil% 1.3 % (0-1); Eosinophil# 0.28 X10^3/uL; Eosinophils% 3.6 % (0-5); Hematocrit 33.8 % (37-47); Hemoglobin 10.5 g/dL (12.0-15.0); Lymphocyte # 1.45 X10^3/ul (0.83-4.51); Lymphocyte % 18.4 % (19-41); Mean Corp Hgb Conc 31.1 g/dL (32-36); Mean Corpuscular Hgb 28.2 pg (27.0-32.0); Mean Corpuscular Volume 90.9 fL (81-99); Mean Platelet Vol. 8.7 fl (6.2-12.0); Monocyte# 0.99 X10^3/uL; Monocyte% 12.6 % (0-10); NRBC Flagged by Analyzer 0 % (0-5); Neutrophil # 5.02 X10^3/uL (2.7-7.7); Neutrophil % 63.8 % (47-70); Platelet Count 367 K/mm3 (150-450); RBC Distribution Width CV 15.8 % (11.6-14.6); RBC Distribution Width SD 52.4 fl (35.1-43.9); Red Blood Count 3.72 M/mm3 (4.2-5.4); White Blood Count 7.9 K/mm3 (4.4-11.0)
[2023-08-04 06:29] LABS: Anion Gap 5 (5-15); BUN 14 mg/dL (7-18); BUN/Creat Ratio 16.8 RATIO (10-20); Calcium,Total 8.3 mg/dL (8.5-10.1); Chloride 106 mmol/L (98-107); Creatinine, Serum 0.84 mg/dL (0.55-1.02); EST Glomerular Filtration Rate 69 mL/min (>60); Est Glom Filt Rate - Afr Amer 84 mL/min (>60); Estimated Creatinine Clearance 42.71 ml/min; Glucose 103 mg/dL (74-106); Sodium Level 139 mmol/L (136-145)
[2023-08-04 08:07] VITALS: BP 134/52; PULSE 63; RESP 16; TEMP 36.2; O2SAT 96
[2023-08-04] MEDS: Potassium Chloride Oral Tablet 20 MEQ 60 MEQ PO (08:10)
[2023-08-04] MEDS: Amiodarone 200 MG Tablet PO (08:11)
[2023-08-04] MEDS: Carvedilol 3.125 MG TABLET PO ×2 (08:11→22:05)
[2023-08-04] MEDS: Menthol/Lanolin/Calamine/Znox 113 GM Tube 1 APPLIC TOPICAL ×2 (08:11→22:05)
[2023-08-04] MEDS: Losartan Potassium 50 MG Tablet PO ×2 (08:12→22:06)
[2023-08-04] MEDS: amLODIPine 5 MG Tablet PO (08:13)
[2023-08-04] MEDS: Magnesium Chloride 64 MG Delay Rel.Tablet 128 MG PO (08:13)
[2023-08-04] MEDS: Senna/Docusate Sodium 1 Tablet PO (08:14)
[2023-08-04] MEDS: Ezetimibe 10 MG Tablet PO (08:14)
[2023-08-04] MEDS: Clopidogrel Bisulfate 75 MG Tablet PO (08:14)
[2023-08-04] MEDS: Pantoprazole Sodium 20 MG Tablet PO (08:14)
[2023-08-04] MEDS: Sertraline 50 MG Tablet PO (08:14)
--- NOTE | 2023-08-04 10:27 | CASEMGMT ---
Social Work SW met with patient at bedside to deliver [employer] front wheeled walker. Patient completed Proof of delivery form. SW submitted form to [employer] via [employer]. HUEY Chambers
[2023-08-04 11:00] VITALS: BP 152/57; PULSE 58; RESP 16; TEMP 36.9; O2SAT 98
--- NOTE | 2023-08-04 13:19 | MDS.RN ---
Pain interview for MDS completed.
[2023-08-04] MEDS: Tamsulosin HCl 0.4 MG Capsule PO (18:06)
[2023-08-04 22:00] VITALS: BP 156/58; PULSE 62
[2023-08-04] MEDS: MELATONIN 3 MG TABLET PO (22:06)
[2023-08-04] MEDS: traZODone 50 MG Tablet PO (22:06)
[2023-08-04] MEDS: Sodium Chloride 0.65% 1 SPRAY SPRAY.BTL 2 SPRAY NASAL (22:06)
[2023-08-04] MEDS: traMADol 50 MG Tablet PO (22:06)
[2023-08-04] MEDS: Pravastatin 80 MG Tablet PO (22:06)
[2023-08-04] MEDS: Glycerin/Hypromellose/PEG400 15 ml Bottle 2 DRP EACH EYE (22:07)
[2023-08-05] MEDS: Acetaminophen 500 MG Tablet 1000 MG PO (05:51)
[2023-08-05] MEDS: Levothyroxine 112 MCG Tablet PO (05:51)
[2023-08-05 05:55] VITALS: PULSE 65; RESP 16; O2SAT 96
[2023-08-05 06:53] LABS: Anion Gap 7 (5-15); BUN 13 mg/dL (7-18); Calcium,Total 8.7 mg/dL (8.5-10.1); Chloride 105 mmol/L (98-107); Creatinine, Serum 0.72 mg/dL (0.55-1.02); EST Glomerular Filtration Rate 82 mL/min (>60); Est Glom Filt Rate - Afr Amer 99 mL/min (>60); Estimated Creatinine Clearance 44.85 ml/min; Glucose 103 mg/dL (74-106); Potassium 3.6 mmol/L (3.5-5.1); Sodium Level 140 mmol/L (136-145)
[2023-08-05] MEDS: Menthol/Lanolin/Calamine/Znox 113 GM Tube 1 APPLIC TOPICAL (10:04)
[2023-08-05] MEDS: Clopidogrel Bisulfate 75 MG Tablet PO (10:05)
[2023-08-05] MEDS: Pantoprazole Sodium 20 MG Tablet PO (10:05)
[2023-08-05] MEDS: amLODIPine 5 MG Tablet PO (10:05)
[2023-08-05] MEDS: Amiodarone 200 MG Tablet PO (10:05)
[2023-08-05] MEDS: Magnesium Chloride 64 MG Delay Rel.Tablet 128 MG PO (10:05)
[2023-08-05] MEDS: Sertraline 50 MG Tablet PO (10:06)
[2023-08-05] MEDS: Carvedilol 3.125 MG TABLET PO (10:06)
[2023-08-05] MEDS: Ezetimibe 10 MG Tablet PO (10:06)
[2023-08-05] MEDS: Losartan Potassium 50 MG Tablet PO (10:06)
[2023-08-05] MEDS: APIXABAN 2.5 MG TABLET (WCH) PO (10:27)
--- NOTE | 2023-08-05 13:00 | CASEMGMT ---
MDS DISCHARGE ASSESSMENT Information for the MDS assessment was obtained from review social work notes and the clinical record. BIMS , PHQ2 00. No noted indications of behaviors or delirium. Patient noted to have been actively involved and engaged in discharge plans including HHC and DME setup. -TANIA Sanchez
== END 2023-08-05 11:09 | disposition home health service (06) | DRG 560 ==
PROVIDERS: Admitting Provider Family Medicine Geriatric Medicine; PCP Internal Medicine; Visit Provider Family Medicine Geriatric Medicine
DX: M80.052D Age-related osteoporosis with current pathological fracture, left femur, subsequent encounter for fracture with routine healing (principal); I48.92 Unspecified atrial flutter; I50.22 Chronic systolic (congestive) heart failure; I11.0 Hypertensive heart disease with heart failure; E03.9 Hypothyroidism, unspecified; F32.A Depression, unspecified; I25.5 Ischemic cardiomyopathy; E78.00 Pure hypercholesterolemia, unspecified; I25.10 Atherosclerotic heart disease of native coronary artery without angina pectoris; W19.XXXD Unspecified fall, subsequent encounter; I25.2 Old myocardial infarction; K21.9 Gastro-esophageal reflux disease without esophagitis; M48.56XD Collapsed vertebra, not elsewhere classified, lumbar region, subsequent encounter for fracture with routine healing; Z79.01 Long term (current) use of anticoagulants; Z79.02 Long term (current) use of antithrombotics/antiplatelets; Z95.5 Presence of coronary angioplasty implant and graft; Z96.642 Presence of left artificial hip joint; Z79.899 Other long term (current) drug therapy; Z79.890 Hormone replacement therapy
CPT/HCPCS: 36415; 72110; 80048; 80061; 81001; 82962; 84484; 85025; 87086; 87811; 92507; 92523; 94762; 97110; 97116; 97129; 97130; 97162; 97166; 97530; 97535; 97802; J2997; A4216

== ENCOUNTER 2023-07-21 10:42 | Day surgery (SDC) | payer MEDICARE, OTHER, SELFPAY ==
[2023-07-21] VITALS (8 sets, daily range): BP systolic 113–144; BP diastolic 43–53; PULSE 55–61; RESP 14–16; TEMP 36.6–37.2; O2SAT 91–97; BMI 23.5
[2023-07-21] MEDS: Lactated Ringers 1,000 ML 15 ML IV (11:16)
--- NOTE | 2023-07-21 12:00 | BONBX_PTH ---
PATIENT: EVENS ORDOÑEZ LOC: [facility] [place] U#:[id number] AGE/SX: 82/F ROOM: RE07/21/[address]: Dr. Reji Kennedy MD : 1940 BED: DIS: 07/21/2023 SPEC #: [id number] RECD: 07/21/23 13:54 STATUS: ISMAEL REJazmin #: [id number] NANCY: 07/21/23 12:[address]: Reji Kennedy DEPT: SURGICAL PATHOLOGY RECD BY: Batsheva Talbot ENTERED: 07/22/23 09:41 SP TYPE: Bone OTHR DR: Dr. Kenji Osei MD Tissues: Vertebra, NOS Procedures: Decalcification bone/plaque Surgery Specimen Level V HEADER OPERATION: Kyphoplasty, L5 PRE-OP DIAGNOSIS: L5 compression fracture TISSUE SUBMITTED: L5 vertebra bone biopsy MICROSCOPIC DIAGNOSIS L5 vertebral bone, biopsy: Fragments of blood clots, negative for malignancy, clinically L5 compression fracture. See comment. SUNDAY/mr 07/25/2023 COMMENT This specimen predominantly consists of blood clot. No apollo tissue is identified. MICROSCOPIC DESCRIPTION Slides are reviewed. GROSS DESCRIPTION Received in fixative is one container labeled with the patient's name and designated L5 vertebral body biopsy. The specimen consists of multiple irregular fragments of reddish-avila gritty tissue measuring in aggregate 1.5 x 0.5 x <0.1cm. The specimen is submitted in its entirety in one cassette after decalcification. AM/ 07/22/2023 TC:5 CPT:83648,67055
--- NOTE | 2023-07-21 12:28 | RAD_ITS ---
PROCEDURE: Fluoroscopic services provided for L4 vertebroplasty. DATE OF EXAMINATION: July 21, 2023. INDICATION: Female, 82 years old. Compression fracture of the L4 vertebrae. FLUOROSCOPY TIME (if supplied): (3 minutes and 55 seconds) minutes/seconds. 78.73 mGy. 10 spot images were submitted. RAD/Spine 1 View Any Level IMPRESSION: Intraoperative imaging provided for vertebroplasty of the L4 vertebra. Electronically Signed: Mele Houston MD at 14:01 EDT ,
[2023-07-21] MEDS: Bupivacaine Mpf 0.5% 30 ML VIAL (13:22)
[2023-07-21 14:18] LABS: Troponin-I HS 12 pg/mL (3.0-54.0)
--- NOTE | 2023-07-21 14:45 | SUR.PHASEI ---
TROPONIN NEGATIVE AT 12, EKG REVIEWED BY DR DOYLE. PATIENT DENIES ANY CHEST PAIN, SOB, NAUSEA, OTHER C/O. MAY BE D/C BACK TO TCU PER DR DOYLE.
== END 2023-07-21 15:03 | disposition home or self-care (01) ==
LOC: SDC 10:44 → AC 10:44
PROVIDERS: Anesthesiology; PCP Internal Medicine; Referring Provider Anesthesiology; Visit Provider Anesthesiology
PROC: (CPT 38222; principal; 2023-07-21 11:45)
DX: S32.059A Unspecified fracture of fifth lumbar vertebra, initial encounter for closed fracture (principal); I11.0 Hypertensive heart disease with heart failure; I50.20 Unspecified systolic (congestive) heart failure; I25.2 Old myocardial infarction; I25.10 Atherosclerotic heart disease of native coronary artery without angina pectoris; E03.9 Hypothyroidism, unspecified; E78.00 Pure hypercholesterolemia, unspecified; Z95.5 Presence of coronary angioplasty implant and graft; Z79.01 Long term (current) use of anticoagulants; Z79.899 Other long term (current) drug therapy; W19.XXXA Unspecified fall, initial encounter
CPT/HCPCS: 38222; 01112; 72020; 76000; 84484; 88307; 88311; J7120; J2405

== ENCOUNTER 2023-10-16 16:22 | Emergency (ER) | payer MEDICARE, OTHER, SELFPAY ==
[2023-10-16 16:24] VITALS: BP 162/48; PULSE 56; RESP 18; TEMP 36.1; O2SAT 96; BMI 23.4
--- NOTE | 2023-10-16 17:04 | EKG12_ITS ---
Test Reason : Blood Pressure : / mmHG Vent. Rate : 054 BPM Atrial Rate : 054 BPM P-R Int : 164 ms QRS Dur : 098 ms QT Int : 506 ms P-R-T Axes : 045 -57 070 degrees QTc Int : 479 ms Sinus bradycardia Left anterior fascicular block Minimal voltage criteria for LVH, may be normal variant ( [place] product ) Abnormal ECG Confirmed by Ulices Guy ([id number]), supervising film or videotape editor DAVID SMITH ([id number]) on 10/17/2023 11:01:01 AM Referred By: Confirmed By:Ulices Guy
--- NOTE | 2023-10-16 17:05 | EX.ED.UPPERE ---
HPI History of Present Illness Chief Complaint: Upper Extremity Injury Informant: patient Narrative Narrative: Very pleasant 82-year-old female presenting to the emergency room with left arm pain. Patient states that yesterday around 1 or 2 in the afternoon she went grocery shopping. She states she did lift some heavy objects. Upon returning home she began to have some pain in the left mid arm extending up towards the shoulder. It is worse when she tries to raise the arm. She notes a slight amount of left lateral neck discomfort with movement. She denies any chest pain jaw pain shortness of breath nausea vomiting or indigestion. No back pain. She states she has had difficulty with occasional pain in the right shoulder in the past. She does have a history of atrial flutter and has had coronary artery disease with stent placement 2013. She is on Plavix and Eliquis. Patient denies any elbow wrist or hand swelling or discomfort. [facility] Medical History Tricuspid valve regurgitation Grade II diastolic dysfunction Left ventricular systolic dysfunction (LVSD) without heart failure Coronary artery disease Preoperative cardiovascular examination Closed fracture of left hip Fall Chronic back pain CKD (chronic kidney disease) Anticoagulant long-term use CAD (coronary artery disease) Paroxysmal atrial flutter Bleeding tendency Post-menopausal High cholesterol History of stress test Osteoporosis GERD (gastroesophageal reflux disease) Hypertension Non-rheumatic mitral regurgitation Tachycardia Bladder prolapse Nonrheumatic mitral valve disorder Abnormal stress test Pure hypercholesterolemia Essential hypertension Atherosclerotic heart disease of seminole coronary artery without angina pectoris History of coronary artery stent placement (~09/25/13) Old myocardial infarction detention use of drug Ischemic cardiomyopathy Abnormal ECG Abnormal serum enzyme level NSTEMI (non-ST elevation myocardial infarction) Angina pectoris Chest pain Hypothyroidism Home Medications ?Medication ?Instructions ?Recorded ?Last Taken ?Type Handicap placard #1 ea 11/19/20 Unknown Rx sertraline 50 mg tablet 50 mg PO DAILY ANXIETY 05/06/21 07/20/23 History nitroglycerin 0.4 mg sublingual 0.4 mg sublingual Q5M PRN Chest 02/25/22 04/20/22 04:30 Rx tablet Pain #25 tabs apixaban 2.5 mg tablet (Eliquis) 2.5 mg PO Q12H blood thinner 04/26/22 06/30/23 History melatonin 10 mg tablet 10 mg PO QHS SLEEP 04/26/22 06/29/23 History omeprazole 20 mg capsule,delayed 20 mg PO DAILY GERD 04/26/22 07/20/23 History release amiodarone 200 mg tablet 200 mg PO DAILY dose reduced at 05/04/22 07/21/23 History [facility]. clopidogrel 75 mg tablet 75 mg PO DAILY prevent clots 06/13/22 06/30/23 History losartan 50 mg tablet 50 mg PO BID BP 06/13/22 07/20/23 History pravastatin 80 mg tablet 80 mg PO DAILY cholesterol 06/13/22 07/20/23 History ondansetron 4 mg disintegrating 4 mg PO Q8H PRN PRN Nausea #14 tabs 02/09/23 Unknown Rx tablet amlodipine 5 mg tablet 5 mg PO DAILY BP 06/30/23 07/20/23 History carvedilol 6.25 mg tablet 3.125 mg PO BID BP/heart rate 06/30/23 07/20/23 History ezetimibe 10 mg tablet 10 mg PO DAILY cholesterol 06/30/23 07/20/23 History levothyroxine 112 mcg tablet 112 mcg PO DAILY thyroid 06/30/23 07/21/23 History acetaminophen 500 mg tablet 1,000 mg (2 x 500 mg) PO Q8 #0 tabs 07/26/23 Unknown Rx peg [id number] 1 2 drp EACH EYE Q1H PRN DRY EYES #0 07/26/23 Unknown Rx %-0.2 %-0.2 % eye drops mL (Artificial Tears ([id number])) sodium chloride 0.65 % nasal spray 2 spray NASAL TID PRN PRN NASAL 07/26/23 Unknown Rx aerosol (Deep Sea Nasal) DRYNESS #0 mL tamsulosin 0.4 mg capsule 0.4 mg PO DAILY@1730 30 days #30 07/26/23 Unknown Rx caps tramadol 50 mg tablet 50 mg PO Q6H PRN PRN Pain Score 07/26/23 Unknown Rx 4-10 7 days #28 tabs trazodone 50 mg tablet 50 mg PO QHS 30 days #30 tabs 07/26/23 Unknown Rx Allergy/AdvReac Type Severity Reaction Status Date / Time lisinopril AdvReac Intermediate Cough Verified 08/25/24 16:23 Family History Mother Breast cancer Myocardial infarction CAD (coronary artery disease) Diabetes Father Myocardial infarction CAD (coronary artery disease) Brother Myocardial infarction Diabetes CAD (coronary artery disease) Sister Breast cancer Hypertension Surgical History History of left hip hemiarthroplasty History of heart artery stent H/O cardiac catheterization Presence of coronary angioplasty implant and graft (~09/25/13) Social History household members: none Smoking Status: Never smoker alcohol intake: never substance use type: does not use caffeine: No what type of physical activity do you participate in: walking frequency: 3-4 times per week duration: 45-60 minutes/day seatbelt use: always do you feel safe at home: Yes ROS ROS ED Constitutional Constitutional ED: Denies chills, fever(s) or weight loss Eyes Eyes: Denies change in vision or diplopia ENT ENT ED: Denies ear pain, rhinorrhea or sore throat Cardiovascular Cardiovascular: Denies chest pain, orthopnea, palpitations or racing heartbeat Respiratory/Chest Respiratory/Chest: Denies cough, dyspnea or orthopnea Gastrointestinal Gastrointestinal: Denies abdominal pain, diarrhea, nausea or vomiting Genitourinary Genitourinary ED: Denies dysuria, hematuria or urinary frequency Musculoskeletal Musculoskeletal: Reports neck pain and other Details: See history of present illness ; Denies arthralgias or myalgias Integumentary Denies abscess or rash Neurologic Neurologic: Denies headache(s), paresthesias or weakness Psychiatric Psychiatric: Denies anxiety, depression, suicidal ideation or suicidal thoughts Endocrine Endocrinology: Denies polydipsia, polyphagia or polyuria Allergic/Immunologic Allergic/Immunologic ED: Denies mouth swelling, tongue swelling or urticaria EXAM Physical Exam Const Vital Signs: 10/16/23 16:24 Temperature 96.9 F L Temperature Source Temporal Pulse Rate 56 L Respiratory Rate 18 Blood Pressure 162/48 H Blood Pressure Mean 86 Pulse Ox 96 Oxygen Delivery Method Room Air Positive well nourished and well developed General Appearance ED: well developed HEENT Reports normocephalic, head/scalp atraumatic and moist mucous membranes Eyes PERRL and EOMs intact bilaterally Neck no lymphadenopathy, supple and no JVD Resp normal respiratory effort and clear to auscultation bilaterally Cardio regular rate, regular rhythm and no murmurs GI normal to inspection, nondistended, normoactive bowel sounds and non-tender Palpation: soft Back/Spine no CVA tenderness and normal ROM Extremity Extremity Narrative: Patient notes pain in the left mid arm to proximal arm on the left side with movement particularly with abduction. She has no tenderness along the supraspinatus infraspinatus or subscapular musculature. No chest wall tenderness. Mild tenderness over the lateral left cervical musculature. Neurovascularly appears intact. No significant swelling. General Extremety ED: Negative for edema General Extremity: Negative for edema Neuro oriented x3 and CN's II-XII intact bilaterally Sensorium / Orientation: alert Motor Exam: strength 5/5 throughout Psych mental status grossly normal Mood & Affect: Negative for depressed or tearful Skin no rashes or lesions noted and no wounds MDM MDM MDM Narrative Medical decision making narrative: Differential diagnosis includes but not limited to acute coronary syndrome pneumothorax muscle strain tendon tear (such as rotator cuff) or ligamentous injury joint sprain I depend interpretation of the chest x-ray is no acute process. My independent interpretation the plain films left shoulder is no acute process. EKG is nonischemic. Troponin representing greater than 6 hours of symptoms is within normal limits. Patient has a mild anemia with a hemoglobin of 11 normal MCV. Pill count 284. Creatinine 1.08 normal electrolytes. Based on the history the physical exam and the above findings I think this most likely musculoskeletal in nature. I do recommend rest heat or ice whichever the patient feels is most comforting. I do recommend Tylenol for pain. Patient to follow-up 1 week if not improved. History & Record Review Discussion w/independent historian: Patient Lab Data Attestation: I reviewed the patient's lab results. EKG Initial EKG: Attestation: I personally reviewed and interpreted this EKG as follows: Comments: Sinus bradycardia ventricular rate of 54 bpm. Left anterior fascicular block. No concerning ST segment changes. Discharge Plan Triage Chief Complaint: Upper Extremity Injury ED Provider: Eliel Goetz Dx/Rx/DC Orders Clinical Impression: Atherosclerotic heart disease of seminole coronary artery without angina pectoris, Muscle strain of left upper arm Instructions: ED Muscle Strain, Extremity Prescriptions: No Action sertraline 50 mg tablet 50 mg PO DAILY Eliquis 2.5 mg tablet 2.5 mg PO Q12H omeprazole 20 mg capsule,delayed release(DR/EC) 20 mg PO DAILY Patient Comments: STOMACH MEDICINE, ACID REFLUX melatonin 10 mg tablet 10 mg PO QHS losartan 50 mg Tablet 50 mg PO BID clopidogrel 75 mg tablet 75 mg PO DAILY pravastatin 80 mg Tablet 80 mg PO DAILY ondansetron 4 mg tablet,disintegrating 4 mg PO Q8H PRN PRN (Reason: Nausea) Qty: 14 0RF carvedilol 6.25 mg tablet 3.125 mg PO BID amlodipine 5 mg tablet 5 mg PO DAILY levothyroxine 112 mcg tablet 112 mcg PO DAILY ezetimibe 10 mg tablet 10 mg PO DAILY trazodone 50 mg Tablet 50 mg PO QHS 30 Days Qty: 30 0RF tramadol 50 mg Tablet 50 mg PO Q6H PRN PRN (Reason: Pain Score 4-10) 7 Days Qty: 28 0RF acetaminophen 500 mg Tablet 1,000 mg PO Q8 Qty: 0 0RF tamsulosin 0.4 mg Capsule 0.4 mg PO DAILY@1730 30 Days Qty: 30 0RF Artificial Tears(pr-qtum-urdi) 1-0.2-0.2 % Drops 2 drp EACH EYE Q1H PRN (Reason: DRY EYES) Qty: 0 0RF Deep Sea Nasal 0.65 % Aerosol,[place] 2 spray NASAL TID PRN PRN (Reason: NASAL DRYNESS) Qty: 0 0RF (DME) Handicap placard See Rx Instructions .Route .MEDSUPPLY Qty: 1 0RF Rx Instructions: Lifetime nitroglycerin 0.4 mg tablet, sublingual 0.4 mg SUBLINGUAL Q5M PRN (Reason: Chest Pain) Qty: 25 1RF amiodarone 200 mg tablet 200 mg PO DAILY Primary Care Provider: Kenji Osei Referrals: Kenji Osei MD [Primary Care Provider] - 1 Week if not improving Print Language: Luxembourgish Disposition Disposition: Home, Self Care
[2023-10-16] MEDS: Aspirin 81 MG TAB.CHEW 324 MG PO (17:15)
--- NOTE | 2023-10-16 17:20 | RAD_ITS ---
EXAM: XR CHEST, 1 VIEW CLINICAL INDICATION: chest pain TECHNIQUE: Frontal view of the chest. COMPARISON: 07/03/2023 FINDINGS: LUNGS AND PLEURAL SPACES: Unremarkable. No consolidation or edema. No pneumothorax. No effusion. HEART: Unremarkable. Cardiac silhouette not enlarged. MEDIASTINUM: Central airways and mediastinal contour are unremarkable. BONES/JOINTS: Unremarkable. No acute fracture. SOFT TISSUES: Unremarkable. RAD/Chest 1 View (Portable) IMPRESSION: No radiographic evidence of acute cardiopulmonary disease. Electronically Signed: Greg Heart MD at 18:02 EDT ,
--- NOTE | 2023-10-16 17:20 | RAD_ITS ---
EXAM: XR LEFT SHOULDER COMPLETE, 2 OR MORE VIEWS CLINICAL INDICATION: pain TECHNIQUE: Two or more views of the left shoulder. COMPARISON: No relevant prior studies available. FINDINGS: BONES/JOINTS: Unremarkable. No acute fracture. No subluxation. Normal alignment. Preservation of the joint space. No sclerotic or destructive changes observed. SOFT TISSUES: Unremarkable. No soft tissue swelling or gas. No radiopaque foreign body. RAD/Shoulder min 2 Views IMPRESSION: Negative left shoulder x-rays. Electronically Signed: Greg Heart MD at 18:02 EDT ,
[2023-10-16 17:21] LABS: Absolute Lymphocyte Count 1.39 X10^3/uL (0.83-4.51); Absolute Neutrophil Count 5.5 X10^3/uL (2.0-7.7); Basophil% 1.2 % (0-1); Eosinophil# 0.47 X10^3/uL; Eosinophils% 5.5 % (0-5); Hematocrit 35.6 % (37-47); Lymphocyte # 1.39 X10^3/ul (0.83-4.51); Lymphocyte % 16.2 % (19-41); Mean Corp Hgb Conc 30.9 g/dL (32-36); Mean Corpuscular Hgb 27.7 pg (27.0-32.0); Mean Corpuscular Volume 89.7 fL (81-99); Mean Platelet Vol. 9.9 fl (6.2-12.0); Monocyte# 1.16 X10^3/uL; Monocyte% 13.5 % (0-10); NRBC Flagged by Analyzer 0 % (0-5); Neutrophil # 5.46 X10^3/uL (2.7-7.7); Neutrophil % 63.4 % (47-70); Platelet Count 284 K/mm3 (150-450); RBC Distribution Width CV 13.8 % (11.6-14.6); Red Blood Count 3.97 M/mm3 (4.2-5.4); White Blood Count 8.6 K/mm3 (4.4-11.0)
[2023-10-16 17:42] LABS: Anion Gap 6 (5-15); BUN 18 mg/dL (7-18); BUN/Creat Ratio 16.7 RATIO (10-20); Calcium,Total 8.4 mg/dL (8.5-10.1); Chloride 108 mmol/L (98-107); Creatinine, Serum 1.08 mg/dL (0.55-1.02); EST Glomerular Filtration Rate 52 mL/min (>60); Est Glom Filt Rate - Afr Amer 62 mL/min (>60); Estimated Creatinine Clearance 31.76 ml/min; Glucose 119 mg/dL (74-106); Potassium 3.7 mmol/L (3.5-5.1); Sodium Level 142 mmol/L (136-145); Troponin-I HS 12 pg/mL (3.0-54.0)
[2023-10-16 18:15] VITALS: BP 146/45; PULSE 55; RESP 20; O2SAT 99
[2023-10-16 18:16] VITALS: BP 141/47; PULSE 54; RESP 20; TEMP 36.6; O2SAT 99
== END 2023-10-16 18:20 | disposition home or self-care (01) ==
PROVIDERS: Emergency Provider Emergency Medicine; PCP Internal Medicine; Visit Provider Emergency Medicine
DX: S46.912A Strain of unspecified muscle, fascia and tendon at shoulder and upper arm level, left arm, initial encounter (principal); X50.0XXA Overexertion from strenuous movement or load, initial encounter; Y93.89 Activity, other specified; Y99.8 Other external cause status; Y92.512 Supermarket, store or market as the place of occurrence of the external cause; I25.10 Atherosclerotic heart disease of native coronary artery without angina pectoris; I12.9 Hypertensive chronic kidney disease with stage 1 through stage 4 chronic kidney disease, or unspecified chronic kidney disease; N18.9 Chronic kidney disease, unspecified; E78.00 Pure hypercholesterolemia, unspecified; I25.2 Old myocardial infarction; Z95.5 Presence of coronary angioplasty implant and graft; Z79.01 Long term (current) use of anticoagulants; Z79.02 Long term (current) use of antithrombotics/antiplatelets; Z79.899 Other long term (current) drug therapy
CPT/HCPCS: 71045; 73030; 80048; 84484; 85025; 93005; 99284; A4216

== ENCOUNTER 2024-03-20 08:32 | Emergency (ER) | payer MEDICARE, OTHER, SELFPAY ==
[2024-03-20 08:33] VITALS: BP 143/51; PULSE 60; RESP 19; TEMP 36.2; O2SAT 92; BMI 22.1
[2024-03-20 09:14] VITALS: BP 143/51; PULSE 60; RESP 19; TEMP 36.2; O2SAT 92
--- NOTE | 2024-03-20 09:25 | EKG12_ITS ---
Test Reason : Blood Pressure : */* mmHG Vent. Rate : 59 BPM Atrial Rate : 59 BPM P-R Int : 146 ms QRS Dur : 94 ms QT Int : 482 ms P-R-T Axes : 66 -73 73 degrees QTcB Int : 477 ms Poor data quality, interpretation may be adversely affected Sinus bradycardia with Premature supraventricular complexes and Premature ventricular complexes or Fusion complexes Left anterior fascicular block Septal infarct , age undetermined Abnormal ECG Confirmed by WENDY OWENS, THELMA ([id number]), film editor DAVID SMITH ([id number]) on 03/22/2024 6:35:59 AM Referred By: Confirmed By: THELMA NGUYEN MD
--- NOTE | 2024-03-20 09:30 | EDS_ITS ---
HPI History of Present Illness Chief Complaint: Cold Sx Narrative Narrative: Patient is a 83-year-old female with a past medical history of atrial flutter on Eliquis, CAD status post stents on Plavix, CKD, hypertension, hypothyroidism, CHF who presented to the emergency department with a chief complaint of cough, congestion, diffuse bodyaches and not feeling well for the past few days. According to family member bedside they note that she has been around people ill recently that she plays cards with. Patient is unsure if she has had a fever but states that she has had chills with the whole body aches. Patient states that when she coughs she does have some chest discomfort with this but denies any other exacerbating symptoms. Patient [facility] Medical History Tricuspid valve regurgitation Grade II diastolic dysfunction Left ventricular systolic dysfunction (LVSD) without heart failure Coronary artery disease Preoperative cardiovascular examination Closed fracture of left hip Fall Chronic back pain CKD (chronic kidney disease) Anticoagulant long-term use CAD (coronary artery disease) Paroxysmal atrial flutter Bleeding tendency Post-menopausal High cholesterol History of stress test Osteoporosis GERD (gastroesophageal reflux disease) Hypertension Non-rheumatic mitral regurgitation Tachycardia Bladder prolapse Nonrheumatic mitral valve disorder Abnormal stress test Pure hypercholesterolemia Essential hypertension Atherosclerotic heart disease of [place] coronary artery without angina pectoris History of coronary artery stent placement (~09/25/13) 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 myocardial 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 Ischemic cardiomyopathy Abnormal ECG Abnormal serum enzyme level NSTEMI (non-ST elevation myocardial infarction) Angina pectoris Chest pain Hypothyroidism Home Medications ?Medication ?Instructions ?Recorded ?Last Taken ?Type Handicap placard #1 ea 11/19/20 Unknown Rx sertraline 50 mg tablet 50 mg PO DAILY ANXIETY 05/06/21 07/20/23 History nitroglycerin 0.4 mg sublingual 0.4 mg sublingual Q5M PRN Chest 02/25/22 04/20/22 04:30 Rx tablet Pain #25 tabs apixaban 2.5 mg tablet (Eliquis) 2.5 mg PO Q12H blood thinner 04/26/22 06/30/23 History melatonin 10 mg tablet 10 mg PO QHS SLEEP 04/26/22 06/29/23 History omeprazole 20 mg capsule,delayed 20 mg PO DAILY GERD 04/26/22 07/20/23 History release amiodarone 200 mg tablet 200 mg PO DAILY dose reduced at 05/04/22 07/21/23 History [facility]. clopidogrel 75 mg tablet 75 mg PO DAILY prevent clots 06/13/22 06/30/23 History losartan 50 mg tablet 50 mg PO BID BP 06/13/22 07/20/23 History pravastatin 80 mg tablet 80 mg PO DAILY cholesterol 06/13/22 07/20/23 History ondansetron 4 mg disintegrating 4 mg PO Q8H PRN PRN Nausea #14 tabs 02/09/23 Unknown Rx tablet amlodipine 5 mg tablet 5 mg PO DAILY BP 06/30/23 07/20/23 History carvedilol 6.25 mg tablet 3.125 mg PO BID BP/heart rate 06/30/23 07/20/23 History ezetimibe 10 mg tablet 10 mg PO DAILY cholesterol 06/30/23 07/20/23 History levothyroxine 112 mcg tablet 112 mcg PO DAILY thyroid 06/30/23 07/21/23 History acetaminophen 500 mg tablet 1,000 mg (2 x 500 mg) PO Q8 #0 tabs 07/26/23 Unknown Rx peg [id number] 1 2 drp EACH EYE Q1H PRN DRY EYES #0 07/26/23 Unknown Rx %-0.2 %-0.2 % eye drops mL (Artificial Tears ([id number])) sodium chloride 0.65 % nasal spray 2 spray NASAL TID PRN PRN NASAL 07/26/23 Unknown Rx aerosol (Deep Sea Nasal) DRYNESS #0 mL trazodone 50 mg tablet 50 mg PO QHS 30 days #30 tabs 07/26/23 Unknown Rx hydroxyzine HCl 50 mg tablet 50 mg PO QHS PRN PRN anxiety 03/20/24 Unknown History ondansetron 4 mg disintegrating 4 mg PO Q6H PRN nausea and 03/20/24 Unknown Rx tablet vomiting #10 tabs Allergy/AdvReac Type Severity Reaction Status Date / Time lisinopril AdvReac Intermediate Cough Verified 03/20/24 08:34 Family History Mother Breast cancer Myocardial infarction CAD (coronary artery disease) Diabetes Father Myocardial infarction CAD (coronary artery disease) Brother Myocardial infarction Diabetes CAD (coronary artery disease) Sister Breast cancer Hypertension Surgical History History of left hip hemiarthroplasty History of heart artery stent H/O cardiac catheterization Presence of coronary angioplasty implant and graft (~09/25/13) Social History household members: none Smoking Status: Never smoker alcohol intake: never substance use type: does not use caffeine: No what type of physical activity do you participate in: walking frequency: 3-4 times per week duration: 45-60 minutes/day seatbelt use: always do you feel safe at home: Yes ROS ROS ED ROS Narrative Constitutional: Complains of diffuse bodyaches and chills as noted above denies headaches, lightness, dizziness Cardiovascular: Denies chest pain or palpitations Respiratory: Planes of cough as noted above denies shortness of breath Abdomen: Denies nausea vomiting diarrhea : Denies any urinary symptoms Neurological: Denies any numbness, weakness, tingling Musculoskeletal: Denies back pain, complains of a rib discomfort when coughing as noted above Skin: Denies any rashes or lesions EXAM Physical Exam Narrative Exam Narrative: General: Patient lying in bed rest comfortably did not appear to be in acute distress Head: Atraumatic, normocephalic Eyes: PERRL bilaterally, EOMI bilaterally, no conjunctival injection noted Neck: Soft, supple, trach midline Cardiovascular: Regular rate and rhythm no murmurs gallops rubs are noted Respiratory: Clear to auscultation bilaterally no rales rhonchi or wheezes noted Abdomen: Soft, nondistended, no tenderness to palpation Extremities: +5/5 strength noted in the bilateral upper and lower extremities, radial pulses +2/4 in the bilateral extremities, no pedal edema no exam Neurological: Patient is following commands and that she is at [facility] year is 2024 Skin: Warm, dry, intact no rashes or lesions noted Const Vital Signs: 03/20/24 08:33 03/20/24 09:10 03/20/24 09:14 Temperature 97.2 F L 97.2 F L Temperature Source Temporal Oral Pulse Rate 60 60 Respiratory Rate 19 H 19 H Respiratory Effort Normal Non-Labored Respiratory Pattern Normal Blood Pressure 143/51 H 143/51 H Blood Pressure Mean 81 81 Pulse Ox 92 92 Oxygen Delivery Method Room Air Room Air 03/20/24 10:32 Temperature Temperature Source Pulse Rate Respiratory Rate Respiratory Effort Respiratory Pattern Blood Pressure 125/80 H Blood Pressure Mean 95 Pulse Ox Oxygen Delivery Method MDM MDM MDM Narrative Medical decision making narrative: Patient is a 83-year-old female who presents to the emergency department the chief complaint of diffuse bodyaches, cough not feeling well for the past few days. On the differential diagnose includes but not limited to pneumonia, ACS, upper respiratory infection secondary to viral etiology. Once workup is obtained reviewed she will be reevaluated. Patient's chest x-ray reviewed by myself and by radiology showed a partially calcified aorta seen cardiomediastinal silhouette otherwise unremarkable. Few calcified granulomas seen including the left upper lobe and right hilum. Lungs are moderately hyperinflated likely due to chronic lung disease no acute pneumonic process noted. No pleural effusion or pneumothorax. Patient did test positive for influenza A here in the emergency department. Her symptoms been going on for least 3 to 4 days. Patient's EKG reviewed and independently interpreted myself showed sinus bradycardia with a rate of [address] changes noted. Discussed results with the patient she was advised to continue supportive care. Prescription for Zofran will be sent to her pharmacy. She will be encouraged to stay hydrated and return with worsening symptoms and concerns. She is agreeable this plan all question concerns answered she was discharged home in stable condition. Radiography Diagnostic Testing: Clinical Impression(s) from Imaging Studies Chest X-Ray 03/20/24 09:40 IMPRESSION: A partially calcified aorta is seen. The cardiomediastinal silhouette is otherwise unremarkable. Few calcified granuloma are seen, including the left upper lobe and right hilum. Lungs are moderately hyperinflated, likely due to chronic lung disease. No acute pneumonic process is noted. No pleural effusion or pneumothorax is seen. Reading Location: [id number] Discharge Plan Triage Chief Complaint: Cold Sx ED Provider: Jacob Hebert Dx/Rx/DC Orders Clinical Impression: Influenza A Prescriptions: New ondansetron 4 mg tablet,disintegrating 4 mg PO Q6H PRN (Reason: nausea and vomiting) Qty: 10 0RF No Action sertraline 50 mg tablet 50 mg PO DAILY Eliquis 2.5 mg tablet 2.5 mg PO Q12H omeprazole 20 mg capsule,delayed release(DR/EC) 20 mg PO DAILY Patient Comments: STOMACH MEDICINE, ACID REFLUX melatonin 10 mg tablet 10 mg PO QHS losartan 50 mg Tablet 50 mg PO BID clopidogrel 75 mg tablet 75 mg PO DAILY pravastatin 80 mg Tablet 80 mg PO DAILY ondansetron 4 mg tablet,disintegrating 4 mg PO Q8H PRN PRN (Reason: Nausea) Qty: 14 0RF carvedilol 6.25 mg tablet 3.125 mg PO BID amlodipine 5 mg tablet 5 mg PO DAILY levothyroxine 112 mcg tablet 112 mcg PO DAILY ezetimibe 10 mg tablet 10 mg PO DAILY trazodone 50 mg Tablet 50 mg PO QHS 30 Days Qty: 30 0RF acetaminophen 500 mg Tablet 1,000 mg PO Q8 Qty: 0 0RF Artificial Tears([id number]) 1-0.2-0.2 % Drops 2 drp EACH EYE Q1H PRN (Reason: DRY EYES) Qty: 0 0RF Deep Sea Nasal 0.65 % Aerosol,[place] 2 spray NASAL TID PRN PRN (Reason: NASAL DRYNESS) Qty: 0 0RF hydroxyzine HCl 50 mg tablet 50 mg PO QHS PRN PRN (Reason: anxiety) (DME) Handicap placard See Rx Instructions .Route .MEDSUPPLY Qty: 1 0RF Rx Instructions: Lifetime nitroglycerin 0.4 mg tablet, sublingual 0.4 mg SUBLINGUAL Q5M PRN (Reason: Chest Pain) Qty: 25 1RF amiodarone 200 mg tablet 200 mg PO DAILY Primary Care Provider: Kenji Osei Referrals: Kenji Osei MD [Primary Care Provider] - Activity Restrictions/Additional Instructions: Follow-up with your primary care physician outpatient setting. Your chest x-ray did not show evidence of pneumonia. He tested positive for influenza A. Daryn was sent to your pharmacy for nausea and use this as prescribed. Return with worsening symptoms or concerns. Ensure you are staying hydrated orally. Print Language: Irish Disposition Disposition: Home, Self Care
--- NOTE | 2024-03-20 09:40 | RAD_ITS ---
PROCEDURE: CHEST PA AND LATERAL REASON FOR EXAM: Cough for a few days. Chest pain. Pre-admission. TECHNIQUE: PA and lateral chest. COMPARISON: AP chest of 10/16/2023. RAD/Chest PA and Lateral IMPRESSION: A partially calcified aorta is seen. The cardiomediastinal silhouette is other jackson unremarkable. Few calcified granuloma are seen, including the left upper lobe and right hilum . Lungs are moderately hyperinflated, likely due to chronic lung disease. No acute pneumonic process is noted. No pleural effusion or pneumothorax is seen. Reading Location: [id number]
[2024-03-20 10:32] VITALS: BP 125/80
--- NOTE | 2024-03-20 11:15 | ED.RN ---
SEPSIS SCREEN COMPLETED PER DR. MCKENZIE
--- NOTE | 2024-03-20 11:33 | CM.ED ---
Social work Reason for referral: validation of advance directives Referral source: case find This SW identified patient's need to have advance directives validated. Patient's HCPOA and DNR paperwork are both on patient's chart (July 2023). This SW entered patient's room, introducing self and role at [facility]. Patient confirmed that patient's son, Von Cameron, is primary HCPOA and patient's other son, Venancio Cameron, is secondary HCPOA. Patient stated patient's daughter in law, Nya, had just stepped out of the patient's room. Patient stated living alone, but having Von and Nya close by if needed. No other needs identified at this time. Sharon Cai, ANALYTICAL ENGINEER, [employer]
[2024-03-20 11:57] VITALS: BP 125/80; PULSE 89; RESP 16; TEMP 36.6; O2SAT 100
== END 2024-03-20 12:09 | disposition home or self-care (01) ==
PROVIDERS: Emergency Provider Emergency Medicine; PCP Internal Medicine; Visit Provider Emergency Medicine
DX: J10.1 Influenza due to other identified influenza virus with other respiratory manifestations (principal); N18.9 Chronic kidney disease, unspecified; E78.00 Pure hypercholesterolemia, unspecified; I25.5 Ischemic cardiomyopathy; I12.9 Hypertensive chronic kidney disease with stage 1 through stage 4 chronic kidney disease, or unspecified chronic kidney disease; I25.10 Atherosclerotic heart disease of native coronary artery without angina pectoris; I25.2 Old myocardial infarction; Z79.899 Other long term (current) drug therapy; Z79.01 Long term (current) use of anticoagulants; Z95.5 Presence of coronary angioplasty implant and graft
CPT/HCPCS: 71046; 87631; 93005; 99282

== ENCOUNTER 2024-04-03 15:41 | Inpatient (IN) | payer MEDICARE, OTHER, SELFPAY ==
[2024-04-03] VITALS (13 sets, daily range): BP systolic 111–166; BP diastolic 43–89; PULSE 49–59; RESP 12–20; TEMP 36.5–36.8; O2SAT 83–99; BMI 22.8; BMI 23.6
--- NOTE | 2024-04-03 15:51 | EKG12_ITS ---
Test Reason : CHEST Blood Pressure : */* mmHG Vent. Rate : 45 BPM Atrial Rate : 45 BPM P-R Int : 162 ms QRS Dur : 98 ms QT Int : 516 ms P-R-T Axes : 22 -63 62 degrees QTcB Int : 446 ms Sinus bradycardia Left anterior fascicular block Nonspecific ST and T wave abnormality Abnormal ECG Confirmed by Ulices Guy ([id number]), editor managing director DON JUSTICE ([id number]) on 04/04/2024 11:26:39 AM Referred By: Confirmed By: Ulices Guy
[2024-04-03 16:03] LABS: Absolute Neutrophil Count 14.7 X10^3/uL (2.0-7.7); Basophil# 0.06 X10^3/uL; Basophil% 0.3 % (0-1); Eosinophil# 0.09 X10^3/uL; Eosinophils% 0.5 % (0-5); Hematocrit 35.8 % (37-47); Hemoglobin 10.9 g/dL (12.0-15.0); Lymphocyte % 9.8 % (19-41); Mean Corp Hgb Conc 30.4 g/dL (32-36); Mean Corpuscular Volume 88.8 fL (81-99); Monocyte# 1.68 X10^3/uL; Monocyte% 9.1 % (0-10); NRBC Flagged by Analyzer 0 % (0-5); Neutrophil # 14.66 X10^3/uL (2.7-7.7); Neutrophil % 79.8 % (47-70); POSITIVE DIFFERENTIAL YES; Platelet Count 345 K/mm3 (150-450); RBC Distribution Width CV 16.1 % (11.6-14.6); RBC Distribution Width SD 52.6 fl (35.1-43.9); Red Blood Count 4.03 M/mm3 (4.2-5.4); White Blood Count 18.4 K/mm3 (4.4-11.0)
--- NOTE | 2024-04-03 16:05 | RAD_ITS ---
PROCEDURE: CHEST 1 VIEW (PORTABLE) REASON FOR EXAM: Chest pain TECHNIQUE: Frontal view of the chest. COMPARISON: Chest x-ray of 03/20/2024 RAD/Chest 1 View (Portable) IMPRESSION: No evidence of pulmonary edema. Mild left basilar atelectasis is seen. In the right lung base, significant atelectasis is noted, particularly medially , also with associated inferior displacement of the right hilum. No pleural effusion or pneumothorax is noted. The cardiomediastinal silhouette is stable, given differences in technique and inspiration No acute osseous change is evident. Reading Location: [id number]
[2024-04-03 16:14] LABS: Differential Indicated SCAN CRITERIA MET
[2024-04-03 16:24] LABS: Anion Gap 5 (5-15); BUN 23 mg/dL (7-18); BUN/Creat Ratio 15.5 RATIO (10-20); Calcium,Total 8.8 mg/dL (8.5-10.1); Chloride 100 mmol/L (98-107); Creatinine, Serum 1.48 mg/dL (0.55-1.02); EST Glomerular Filtration Rate 36 mL/min (>60); Est Glom Filt Rate - Afr Amer 43 mL/min (>60); Estimated Creatinine Clearance 23.82 ml/min; Glucose 97 mg/dL (74-106); Potassium 3.8 mmol/L (3.5-5.1); Sodium Level 135 mmol/L (136-145); Troponin-I HS (w/2H Reflex) 28 pg/mL (3.0-54.0)
--- NOTE | 2024-04-03 16:45 | EX.ED.DYSGE1 ---
HPI History of Present Illness Chief Complaint: Palpitations Informant: patient Narrative Narrative: Patient is an 83-year-old female with history of ischemic cardiomyopathy, atrial fibrillation (on amiodarone, Eliquis, carvedilol), coronary artery disease (on Zetia and Plavix), hypertension, hyperlipidemia, CKD and hypothyroidism presenting for worsening sob,, episodes of heart racing and generalized weakness. Patient states that she had influenza couple weeks ago. States she never really recovered. She actually saw her primary care doctor yesterday. She did need a chest x-ray was prescribed Tylenol with codeine for her cough. She notes that she has had frequent falls (not losing consciousness but is getting weak and lowered herself to the ground). She has not hit her head. States she has landed on her buttocks. She is continue to have a cough that is intermittently productive of clear and green sputum. Denies recent fevers. Denies any chest pain. Has had a couple episodes over the past day or 2 where she feels that her heart is racing. She was laying down and her heart started racing today and her friend who she was with brought her to the emergency room. Patient does not wear home O2. She denies any nausea or vomiting. Nuys abdominal pain. Denies any urinary symptoms. No other complaints or concerns at this time [facility] Medical History Tricuspid valve regurgitation Grade II diastolic dysfunction Left ventricular systolic dysfunction (LVSD) without heart failure Coronary artery disease Preoperative cardiovascular examination Closed fracture of left hip Fall Chronic back pain CKD (chronic kidney disease) Anticoagulant long-term use CAD (coronary artery disease) Paroxysmal atrial flutter Bleeding tendency Post-menopausal High cholesterol History of stress test Osteoporosis GERD (gastroesophageal reflux disease) Hypertension Non-rheumatic mitral regurgitation Tachycardia Bladder prolapse Nonrheumatic mitral valve disorder Abnormal stress test Pure hypercholesterolemia Essential hypertension Atherosclerotic heart disease of [place] coronary artery without angina pectoris History of coronary artery stent placement (~09/25/13) 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 Ischemic cardiomyopathy Abnormal ECG Abnormal serum enzyme level NSTEMI (non-ST elevation myocardial infarction) Angina pectoris Chest pain Hypothyroidism Home Medications ?Medication ?Instructions ?Recorded ?Last Taken ?Type Handicap anthony #1 ea 11/19/20 Unknown Rx sertraline 50 mg tablet 50 mg PO DAILY ANXIETY 05/06/21 07/20/23 History nitroglycerin 0.4 mg sublingual 0.4 mg sublingual Q5M PRN Chest 02/25/22 04/20/22 04:30 Rx tablet Pain #25 tabs apixaban 2.5 mg tablet (Eliquis) 2.5 mg PO Q12H blood thinner 04/26/22 06/30/23 History melatonin 10 mg tablet 10 mg PO QHS SLEEP 04/26/22 06/29/23 History omeprazole 20 mg capsule,delayed 20 mg PO DAILY GERD 04/26/22 07/20/23 History release amiodarone 200 mg tablet 200 mg PO DAILY dose reduced at 05/04/22 07/21/23 History [facility]. clopidogrel 75 mg tablet 75 mg PO DAILY prevent clots 06/13/22 06/30/23 History losartan 50 mg tablet 50 mg PO BID BP 06/13/22 07/20/23 History pravastatin 80 mg tablet 80 mg PO DAILY cholesterol 06/13/22 07/20/23 History ondansetron 4 mg disintegrating 4 mg PO Q8H PRN PRN Nausea #14 tabs 02/09/23 Unknown Rx tablet amlodipine 5 mg tablet 5 mg PO DAILY BP 06/30/23 07/20/23 History carvedilol 6.25 mg tablet 3.125 mg PO BID BP/heart rate 06/30/23 07/20/23 History ezetimibe 10 mg tablet 10 mg PO DAILY cholesterol 06/30/23 07/20/23 History levothyroxine 112 mcg tablet 112 mcg PO DAILY thyroid 06/30/23 07/21/23 History acetaminophen 500 mg tablet 1,000 mg (2 x 500 mg) PO Q8 #0 tabs 07/26/23 Unknown Rx peg [id number] 1 2 drp EACH EYE Q1H PRN DRY EYES #0 07/26/23 Unknown Rx %-0.2 %-0.2 % eye drops mL (Artificial Tears ([id number])) sodium chloride 0.65 % nasal spray 2 spray NASAL TID PRN PRN NASAL 07/26/23 Unknown Rx aerosol (Deep Sea Nasal) DRYNESS #0 mL trazodone 50 mg tablet 50 mg PO QHS 30 days #30 tabs 07/26/23 Unknown Rx hydroxyzine HCl 50 mg tablet 50 mg PO QHS PRN PRN anxiety 03/20/24 Unknown History ondansetron 4 mg disintegrating 4 mg PO Q6H PRN nausea and 03/20/24 Unknown Rx tablet vomiting #10 tabs Allergy/AdvReac Type Severity Reaction Status Date / Time lisinopril AdvReac Intermediate Cough Verified 04/03/24 15:45 Family History Mother Breast cancer Myocardial infarction CAD (coronary artery disease) Diabetes Father Myocardial infarction CAD (coronary artery disease) Brother Myocardial infarction Diabetes CAD (coronary artery disease) Sister Breast cancer Hypertension Surgical History History of left hip hemiarthroplasty History of heart artery stent H/O cardiac catheterization Presence of coronary angioplasty implant and graft (~09/25/13) Social History household members: none Smoking Status: Never smoker alcohol intake: never substance use type: does not use caffeine: No what type of physical activity do you participate in: walking frequency: 3-4 times per week duration: 45-60 minutes/day seatbelt use: always do you feel safe at home: Yes ROS ROS ED Constitutional Constitutional ED: Reports other Details: Generalized weakness, malaise ; Denies chills or fever(s) ENT ENT ED: Denies rhinorrhea or sore throat Cardiovascular Cardiovascular: Reports palpitations and racing heartbeat; Denies chest pain Respiratory/Chest Respiratory/Chest: Reports cough, dyspnea and sputum Gastrointestinal Gastrointestinal: Denies abdominal pain, nausea or vomiting Genitourinary Genitourinary ED: Denies dysuria or hematuria Musculoskeletal Musculoskeletal: Reports back pain; Denies arthralgias Integumentary Denies rash Neurologic Neurologic: Reports weakness; Denies paresthesias Hematologic/Lymphatic Hematologic/Lymphatic: Reports easy bleeding, easy bruising and other Details: On Eliquis EXAM Physical Exam Const Vital Signs: 04/03/24 15:46 04/03/24 15:51 04/03/24 16:24 Temperature 98 F 98 F Temperature Source Oral Oral Pulse Rate 49 L 49 L Respiratory Rate 18 18 Blood Pressure 126/43 H 126/43 H Blood Pressure Mean 70 70 Pulse Ox 83 83 95 Oxygen Delivery Method Room Air Room Air Nasal Cannula Oxygen Flow Rate (L/min) 5 04/03/24 16:54 04/03/24 17:00 Temperature 97.8 F Temperature Source Temporal Pulse Rate 49 L 54 L Respiratory Rate 15 15 Blood Pressure 138/46 H 166/55 H Blood Pressure Mean 76 92 Pulse Ox 99 98 Oxygen Delivery Method Nasal Cannula Oxygen Flow Rate (L/min) 5 Positive well nourished and well developed General Appearance ED: well developed and NAD HEENT Reports moist mucous membranes Eyes PERRL Neck supple and no JVD Chest Wall inspection of chest normal Resp normal respiratory effort Resp Narrative: Diminished response of the right base. No wheezing appreciated. Cardio regular rhythm and no murmurs Rate: bradycardia GI normal to inspection, nondistended, normoactive bowel sounds and non-tender Back/Spine no CVA tenderness Back/Spine Narrative: Tenderness palpation of the low back in the paraspinal region bilaterally. No midline tenderness appreciated. Thoracic Spine / Upper Back: Negative for thoracic spinal tenderness Lumbar Spine / Lower Back: Negative for lumbar spinal tenderness Extremity normal to inspection General Extremety ED: Negative for edema General Extremity: Negative for edema Neuro Sensorium / Orientation: alert Motor Exam: general weakness Psych mental status grossly normal Skin no rashes or lesions noted and no wounds MDM MDM MDM Narrative Medical decision making narrative: Patient is evaluated for persistent cough and worsening malaise and not feeling well after influenza 3 weeks ago. She starting to get lightheaded and fall now. Differential includes arrhythmia, ACS, sepsis, pneumonia, urinary tract infection, NANCY, electrolyte abnormality. Suspicion for PE as patient is anticoagulated on Eliquis. Protocol labs started with chest x-ray, CBC and BMP as well as high sensitive troponin. Patient has a significant leukocytosis of 18.4 and mild anemia with a hemoglobin of 10.9. Hemoglobin is at her baseline. This does not appear to be an acute anemia. Platelets are normal. CMP shows renal insufficiency with a creatinine 1.48 (baseline is 0.7-0.8). Mild hyponatremia the sodium 135 but otherwise largely normal electrolytes. High sensitive troponin 28. Will add on lactate, blood cultures and urinalysis. Patient given Tylenol in the emergency room. EKG shows sinus bradycardia with some mild sinus arrhythmia. Patient was 83% upon arrival to the ER and does not wear home O2. Chest x-ray is concerning for right lower lobe infiltrate and clinically patient has a pneumonia of the right lower lobe. Will be started on antibiotics to cover for commune acquired pneumonia (Rocephin and azithromycin). Will require admission given her hypoxia. Will speak with hospitalist Lab Data Attestation: I reviewed the patient's lab results. Labs: Laboratory Results - last 24 hr 04/03/24 04/03/24 15:55 16:45 WBC 18.4 H RBC 4.03 L Hgb 10.9 L Hct 35.8 L MCV 88.8 MCH 27.0 MCHC 30.4 L RDW Std Deviation 52.6 H RDW Coeff of [place] 16.1 H Plt Count 345 MPV 9.0 Immature Gran % (Auto) 0.500 Neut % (Auto) 79.8 H Lymph % (Auto) 9.8 L [place] % (Auto) 9.1 Eos % (Auto) 0.5 Baso % (Auto) 0.3 Absolute Neuts (auto) 14.7 H Absolute Lymphs (auto) 1.80 Nucleated RBC % 0 Differential Comment SCANNED Diff Path Review May foll Sodium 135 L Potassium 3.8 Chloride 100 Carbon Dioxide 30.0 Anion Gap 5 BUN 23 H Creatinine 1.48 H Estim Creat Clear Calc 23.82 Est GFR (MDRD) Af Amer 43 L Est GFR (MDRD) Non-Af 36 L BUN/Creatinine Ratio 15.5 Glucose 97 Lactic Acid 0.7 Calcium 8.8 Troponin I High Sens 28 Radiography Chest X-Ray - ED: 1 View, Read by ED Physician, Read by Radiologist and Right Infiltrate Diagnostic Testing: Clinical Impression(s) from Imaging Studies Chest X-Ray 04/03/24 16:05 IMPRESSION: No evidence of pulmonary edema. Mild left basilar atelectasis is seen. In the right lung base, significant atelectasis is noted, particularly medially, also with associated inferior displacement of the right hilum. No pleural effusion or pneumothorax is noted. The cardiomediastinal silhouette is stable, given differences in technique and inspiration No acute osseous change is evident. Reading Location: [address] Rhythm Strip Rhythm Strip: Sinus bradycardia Rate: 45 Ectopy: None EKG Initial EKG: Attestation: I personally reviewed and interpreted this EKG as follows: Interpretation: Sinus Bradycardia Comments: Sinus bradycardia rate of 45 bpm Leftward axis Left anterior fascicular block Nonspecific T wave abnormalities Prior EKG tracings: available for review Prior: Unchanged Management Discussion w/another healthcare provider: Hospitalist Discharge Plan Triage Chief Complaint: Palpitations ED Provider: Ninfa Proctor Dx/Rx/DC Orders Clinical Impression: Pneumonia, NANCY (acute kidney injury), Leukocytosis, Current use of assisted anticoagulation, Hypoxia Prescriptions: No Action sertraline 50 mg tablet 50 mg PO DAILY Eliquis 2.5 mg tablet 2.5 mg PO Q12H omeprazole 20 mg capsule,delayed release(DR/EC) 20 mg PO DAILY Patient Comments: STOMACH MEDICINE, ACID REFLUX melatonin 10 mg tablet 10 mg PO QHS losartan 50 mg Tablet 50 mg PO BID clopidogrel 75 mg tablet 75 mg PO DAILY pravastatin 80 mg Tablet 80 mg PO DAILY ondansetron 4 mg tablet,disintegrating 4 mg PO Q8H PRN PRN (Reason: Nausea) Qty: 14 0RF carvedilol 6.25 mg tablet 3.125 mg PO BID amlodipine 5 mg tablet 5 mg PO DAILY levothyroxine 112 mcg tablet 112 mcg PO DAILY ezetimibe 10 mg tablet 10 mg PO DAILY trazodone 50 mg Tablet 50 mg PO QHS 30 Days Qty: 30 0RF acetaminophen 500 mg Tablet 1,000 mg PO Q8 Qty: 0 0RF Artificial Tears([id number]) 1-0.2-0.2 % Drops 2 drp EACH EYE Q1H PRN (Reason: DRY EYES) Qty: 0 0RF Deep Sea Nasal 0.65 % Aerosol,[place] 2 spray NASAL TID PRN PRN (Reason: NASAL DRYNESS) Qty: 0 0RF hydroxyzine HCl 50 mg tablet 50 mg PO QHS PRN PRN (Reason: anxiety) ondansetron 4 mg tablet,disintegrating 4 mg PO Q6H PRN (Reason: nausea and vomiting) Qty: 10 0RF (DME) Handicap placard See Rx Instructions .Route .MEDSUPPLY Qty: 1 0RF Rx Instructions: Lifetime nitroglycerin 0.4 mg tablet, sublingual 0.4 mg SUBLINGUAL Q5M PRN (Reason: Chest Pain) Qty: 25 1RF amiodarone 200 mg tablet 200 mg PO DAILY Primary Care Provider: Kenji Osei Referrals: Kenji Osei MD [Primary Care Provider] - Print Language: Fijian Disposition Disposition: Acute Care Hospital [facility]
[2024-04-03 16:55] LABS: Differential Comment SCANNED
[2024-04-03] MEDS: Lidocaine 5% Patch 1 PATCH TOPICAL (17:09)
[2024-04-03] MEDS: 0.9% Normal Saline (1000mL) 1,000 ML 999 ML IV (17:10)
[2024-04-03] MEDS: Acetaminophen 325 MG Tablet 650 MG PO (17:10)
[2024-04-03 17:31] LABS: Lactic Acid 0.7 mmol/L (0.4-1.9)
--- NOTE | 2024-04-03 17:47 | HP.PCM.HOS_ITS ---
HPI - General General Date of Admission: 04/03/24 Date of Service: 04/03/24 HPI Narrative EVENS ORDOÑEZ, is a 83 F who presented to the emergency department [facility] on 04/03/2024 initially due to palpitations. Patient does have a history of atrial fibrillation and on amiodarone, carvedilol, and Eliquis for this at baseline. She indicated she was diagnosed influenza A on 03/20/2024 and stated she is never really felt better since that point in time. She states she is continue to have shortness of breath, generalized weakness, intermittent episodes of palpitations, cough with sputum production. She states that she has had frequent falls because she is weak and is lowered herself to the ground. She had no trauma related to these falls. She states her appetite has not been great but denies any fever or chills at this time. Patient is not oxygen dependent at baseline Vital signs on presentation showed a temperature of 98, heart rate 49, respiratory is 18, blood pressure is 126/43 and pulse ox was 83% on room air. Oxygen saturation improved to 95% on 5 L nasal cannula. CBC showed marked leukocytosis with a white count of 18.4, stable chronic anemia with a hemoglobin of 10.9. She does have a left shift with a 79.8% neutrophilia. Chemistry panel showed mild hyponatremia with a sodium of 135, acute kidney injury with a serum creatinine of 1.48 (baseline 0.7-1) lactic acid was 0.7. Troponin was 28 and 26 respectively on initial and delta UA is consistent with some mild dehydration and infection having occult blood, leuk esterase, white cells, and 3+ bacteria. EKG showed a sinus bradycardia with no ST-T wave changes concerning for acute ischemia and intervals were normal. Chest x-ray was reviewed by me and she does seem to have a significant right lower lobe opacity consistent with acute infiltrate. Cultures were sent for blood, urine, and sputum and she was started on broad- spectrum antibiotics with azithromycin and ceftriaxone. [facility] Medical History Tricuspid valve regurgitation Grade II diastolic dysfunction Left ventricular systolic dysfunction (LVSD) without heart failure Coronary artery disease Preoperative cardiovascular examination Closed fracture of left hip Fall Chronic back pain CKD (chronic kidney disease) Anticoagulant long-term use CAD (coronary artery disease) Paroxysmal atrial flutter Bleeding tendency Post-menopausal High cholesterol History of stress test Osteoporosis GERD (gastroesophageal reflux disease) Hypertension Non-rheumatic mitral regurgitation Tachycardia Bladder prolapse Nonrheumatic mitral valve disorder Abnormal stress test Pure hypercholesterolemia Essential hypertension Atherosclerotic heart disease of [place] coronary artery without angina pectoris History of coronary artery stent placement (~09/25/13) Old myocardial infarction [facility] use of drug Ischemic cardiomyopathy Abnormal ECG Abnormal serum enzyme level NSTEMI (non-ST elevation myocardial infarction) Angina pectoris Chest pain Hypothyroidism Home Medications ?Medication ?Instructions ?Recorded ?Last Taken ?Type Handicap placard #1 ea 11/19/20 Unknown Rx sertraline 50 mg tablet 50 mg PO DAILY ANXIETY 05/0604/03/24 History nitroglycerin 0.4 mg sublingual 0.4 mg sublingual Q5M PRN Chest 02/25/22 04/20/22 04:30 Rx tablet Pain #25 tabs apixaban 2.5 mg tablet (Eliquis) 2.5 mg PO Q12H blood thinner 04/26/22 04/03/24 History melatonin 10 mg tablet 10 mg PO QHS SLEEP 04/26/22 04/02/24 History omeprazole 20 mg capsule,delayed 20 mg PO DAILY GERD 0 04/26/22 04/03/24 History release amiodarone 200 mg tablet 200 mg PO DAILY dose reduced at 05/04/22 04/03/24 History [facility]. clopidogrel 75 mg tablet 75 mg PO DAILY prevent clots 06/13/22 04/03/24 History losartan 50 mg tablet 50 mg PO BID BP 06/13/2201/15 History amlodipine 5 mg tablet 5 mg PO DAILY BP 06/30/23 History carvedilol 6.25 mg tablet 3.125 mg PO BID BP/heart rat e 06/30/23 04/03/24 History ezetimibe 10 mg tablet 10 mg PO DAILY cholesterol 0 06/30/23 04/03/24 History levothyroxine 112 mcg tablet 112 mcg PO DAILY thyroid 06/30/23 04/03/24 History acetaminophen 500 mg tablet 1,000 mg (2 x 500 mg) PO Q 8 #0 tabs 07/26/23 04/03/24 Rx peg [id number] 1 2 drp EACH EYE Q1H PRN DRY EYES #0 07/26/23 04/03/24 Rx %-0.2 %-0.2 % eye drops mL (Artificial Tears ([id number])) sodium chloride 0.65 % nasal spray 2 spray NASAL TID P RN PRN NASAL 07/26/23 Unknown Rx aerosol (Deep Sea Nasal) DRYNESS #0 mL trazodone 50 mg tablet 50 mg PO QHS 30 days #30 tab s 07/26/23 04/02/24 Rx hydroxyzine HCl 50 mg tablet 50 mg PO QHS PRN PRN anxi ety 03/20/24 04/02/24 History ondansetron 4 mg disintegrating 4 mg PO Q6H PRN nausea and 03/20/24 Unknown Rx tablet vomiting #10 tabs Allergy/AdvReac Type Severity Reaction Status Date / Time lisinopril AdvReac Intermediate Cough Verified 04/03/24 15:45 Family History Mother Breast cancer Myocardial infarction CAD (coronary artery disease) Diabetes Father Myocardial infarction CAD (coronary artery disease) Brother Myocardial infarction Diabetes CAD (coronary artery disease) Sister Breast cancer Hypertension Surgical History History of left hip hemiarthroplasty History of heart artery stent H/O cardiac catheterization Presence of coronary angioplasty implant and graft (~09/25/13) Social History household members: none Smoking Status: Never smoker alcohol intake: never substance use type: does not use caffeine: No what type of physical activity do you participate in: walking frequency: 3-4 times per week duration: 45-60 minutes/day seatbelt use: always do you feel safe at home: Yes ROS Constitutional Constitutional: Reports anorexia, fatigue, malaise and weakness; Denies change in weight, chills, fever(s), night sweats or other Eyes Eyes: Denies blurry vision, change in eye color, change in vision, discharge from eye(s), double vision, erythema, eye pain, loss of vision or other ENT HEENT: Reports headache(s); Denies abnormal hearing, dysphagia, ear pain, epistaxis, hearing loss, nasal congestion, nasal discharge, post nasal drip, sinus pressure, sore throat or other Cardiovascular Cardiovascular: Reports dyspnea on exertion, palpitations and rapid heart rate; Denies chest pain, claudication, edema, lightheadedness, orthopnea, paroxysmal nocturnal dyspnea, syncope or other Respiratory/Chest Respiratory/Chest: Reports cough, dyspnea, excessive phlegm production, productive cough, shortness of breath at rest and shortness of breath with exertion; Denies hemoptysis, wheezing or other Gastrointestinal Gastrointestinal: Denies abdominal pain, coffee ground emesis, constipation, diarrhea, dyspepsia, hematemesis, hematochezia, loose stools, melena, nausea, vomiting or other Genitourinary Genitourinary: Denies burning urination, difficulty urinating, dysuria, hematuria, nocturia, urinary frequency, urinary hesitancy, urinary incontinence, urinary urgency or other Musculoskeletal Musculoskeletal: Reports myalgias; Denies arthralgias, back pain, joint pain, joint stiffness, joint swelling, neck pain or other Neurologic Neurologic: Reports abnormal gait; Denies abnormal speech, confusion, disequilibrium, dizziness, focal weakness, headache(s), numbness, paresthesias, seizure-like activity, seizures, syncope, tingling, tremor(s) or other Psychiatric Psychiatric: Denies anxiety, depression, homicidal ideation, suicidal ideation or other Endocrine Endocrinology: Denies change in body appearance, cold intolerance, excessive sweating, heat intolerance, polydipsia, polyuria or other Hematologic/Lymphatic Hematologic/Lymphatic: Denies anemia, easy bleeding, easy bruising, lymphadenopathy or other Allergic/Immunologic Allergic/Immunologic: Denies rhinitis, hives, eczemia, asthma or other Vital Signs Vital Signs Vital Signs: 04/03/24 15:46 04/03/24 15:51 04/03/24 16:24 Temperature 98 F 98 F Temperature Source Oral Oral Pulse Rate 49 L 49 L Respiratory Rate 18 18 Blood Pressure 126/43 H 126/43 H Blood Pressure Mean 70 70 Pulse Ox 83 83 95 Oxygen Delivery Method Room Air Room Air Nasal Cannula Oxygen Flow Rate (L/min) 5 04/03/24 16:54 04/03/24 17:00 Temperature 97.8 F Temperature Source Temporal Pulse Rate 49 L 54 L Respiratory Rate 15 15 Blood Pressure 138/46 H 166/55 H Blood Pressure Mean 76 92 Pulse Ox 99 98 Oxygen Delivery Method Nasal Cannula Oxygen Flow Rate (L/min) 5 Weight Weight: 58.377 kg Body Mass Index (BMI) 22.8 Physical Exam Const alert, oriented x3, no apparent distress, average body habitus and well nourished; Negative for healthy appearing Constitutional Narrative: Elderly, ill-appearing but not toxic appearing, white female, lying in bed resting comfortably General Appearance: cooperative HEENT normocephalic, head/scalp atraumatic, hearing grossly normal bilaterally and moist oral mucous membranes HEENT Narrative: Mallampati 2, no thrush Eyes conjunctivae normal Eyes Narrative: No scleral icterus Neck supple Neck Narrative: Trachea midline, no thyroid enlargement Resp normal respiratory effort, no retractions, no use of accessory muscles and No clear to auscultation bilaterally Resp Narrative: Rhonchi in right base with harsh rhonchorous cough Auscultation: rhonchi; Negative for crackles or wheezes Cardio regular rhythm, S1 normal heart sound, S2 normal heart sound, no rub, no gallops and no clicks Cardio Narrative: Bradycardic, 3 out of 6 systolic murmur GI normal to inspection, nondistended, normoactive bowel sounds, soft to palpation and non-tender Extremity no clubbing, cyanosis or edema Extremity Narrative: 2+ pedal and radial pulses Skin skin turgor normal, no jaundice, no petechiae and no mottling Neuro oriented x3, moves all extremities and no focal motor deficits Speech: speech normal Psych affect normal Psych Narrative: Extremely pleasant, eye contact is good and patient interacts appropriately Results Lab / Micro Data 04/03/24 15:55 04/03/24 15:55 Labs: Laboratory Results - last 24 hr 04/03/24 15:55: WBC 18.4 H, RBC 4.03 L, Hgb 10.9 L, Hct 35.8 L, MCV 88.8, MCH 27.0, MCHC 30.4 L, RDW Std Deviation 52.6 H, RDW Coeff of [place] 16.1 H, Plt Count 345, MPV 9.0, Immature Gran % (Auto) 0.500, Neut % (Auto) 79.8 H, Lymph % (Auto) 9.8 L, [place] % (Auto) 9.1, Eos % (Auto) 0.5, Baso % (Auto) 0.3, Absolute Neuts (auto) 14.7 H, Absolute Lymphs (auto) 1.80, Nucleated RBC % 0, Differential Comment SCANNED, Diff Path Review May foll, Sodium 135 L, Potassium 3.8, Chloride 100, Carbon Dioxide 30.0, Anion Gap 5, BUN 23 H, Creatinine 1.48 H, Estim Creat Clear Calc 23.82, Est GFR (MDRD) Af Amer 43 L, Est GFR (MDRD) Non-Af 36 L, BUN/Creatinine Ratio 15.5, Glucose 97, Calcium 8.8, Troponin I High Sens 28 04/03/24 16:45: Lactic Acid 0.7 Rhythm Strip Rhythm Strip: Sinus bradycardia Rate: 45 Ectopy: None Imaging Radiology Impression Chest X-Ray 04/03/24 16:05 IMPRESSION: No evidence of pulmonary edema. Mild left basilar atelectasis is seen. In the right lung base, significant atelectasis is noted, particularly medially, also with associated inferior displacement of the right hilum. No pleural effusion or pneumothorax is noted. The cardiomediastinal silhouette is stable, given differences in technique and inspiration No acute osseous change is evident. Reading Location: [address] Assessment & Plan Assessment/Plan (1) Pneumonia: (2) Leukocytosis: (3) NANCY (acute kidney injury): (4) Abnormal urinalysis: (5) Hypoxia: PLAN: Plan Acute hypoxia secondary to influenza A with superimposed bacterial pneumonia -Patient not oxygen dependent at baseline -Currently requiring 5 L to maintain saturations with an oxygen saturation of 83% on room air at presentation -Wean oxygen as able -Check ambulatory pulse ox prior to discharge -Diagnosed with flu on 03/20/2024 -Patient with rhonchorous productive cough -Blood culture pending -Sputum culture ordered -Check strep pneumo and Legionella antigens -Start coverage for community-acquired pneumonia with ceftriaxone azithromycin -As needed scheduled aerosols -Acapella and I-S -Encourage mobility and out of bed Leukocytosis -Secondary to the above -Should trend down with treatment of bacterial infection -Repeat lab in a.m. Abnormal urinalysis -UA is consistent with infection -Cultures pending -Continue ceftriaxone as ordered -Await cultures NANCY -Baseline serum creatinine is between 0.7 and 1.0 -Serum creatinine presentation was 1.48 -Patient was given 1 L IV fluids emergency department -Will defer any further IV fluids now -Repeat lab in a.m. Palpitations with history of A-fib -Suspect patient may have some underlying RVR prior to presentation due to her acute hypoxia and respiratory distress -Currently with sinus bradycardia on EKG -Continue home Eliquis -Continue home amiodarone -Continue home carvedilol CAD/chronic diastolic dysfunction/hyperlipidemia/history of ischemic cardiomyopathy -Continue home amlodipine -Continue home carvedilol -Continue home Plavix -Continue home Zetia -Continue home losartan -Most recent echocardiogram showed EF of 60% with stage II diastolic dysfunction Hypothyroidism -Continue home levothyroxine GERD -Continue home PPI Anxiety/depression/insomnia -continue as needed hydroxyzine -Continue home sertraline -continue on trazodone DVT prophylaxis -Continue home apixaban CODE STATUS -DNR CCA with no intubation per discussion on admission Charges/Coding Visit Charges Inpatient E&M: 55149 Init Hosp L3
[2024-04-03] MEDS: Ceftriaxone 2 GM in 0.9% Normal Saline (50mL MB+) 50 ML IV (17:56)
[2024-04-03 17:59] LABS: Reflex Troponin-HS? (from REC) Y
[2024-04-03 18:21] LABS: CPK Total, Creatine Kinase 438 U/L (26-192)
[2024-04-03 18:22] LABS: Mucous, Urine 0 SEEN /hpf (<or=2+)
[2024-04-03 18:29] LABS: Color, Urine Yellow (Yellow); Glucose, Dipstick Normal (Normal); Ketone-Dipstick Negative (Negative); Leukocyte Esterase-Dipstick 500 /ul (Negative); Nitrite-Dipstick Negative (Negative); Occult Blood-Urine 25 /ul (Negative); Protein-Dipstick 30 mg/dl (Negative); Urine Bilirubin Dipstick Negative (Negative); Urine Clarity Sl. Cloudy (Clear); Urine Urobilinogen Normal (Normal)
[2024-04-03 18:53] LABS: Bacteria 3+ /hpf (None Seen); Red Blood Cells-Urine 0-5 SEEN /hpf (0-5); Squamous Epithelial Cells - UA 5-10 SEEN /hpf (5-10); White Blood Cells 25-50 SEEN /hpf (0-5)
[2024-04-03] MEDS: Azithromycin 500 MG in 0.9% Normal Saline (250mL Bag) 250 ML 255 MG IV (19:03)
[2024-04-03 20:20] LABS: Troponin-I HS 26 pg/mL (3.0-54.0)
[2024-04-03] MEDS: Losartan Potassium 50 MG Tablet PO (21:04)
[2024-04-03] MEDS: traZODone 50 MG Tablet PO (21:05)
[2024-04-03] MEDS: APIXABAN 2.5 MG TABLET (WCH) PO (21:05)
[2024-04-03] MEDS: Acetaminophen 500 MG Tablet 1000 MG PO (21:05)
[2024-04-03] MEDS: guaiFENesin 1,200 MG Tablet 1200 MG PO (21:06)
[2024-04-03] MEDS: MELATONIN 10 MG TABLET PO (21:06)
[2024-04-03] MEDS: 0.9% Saline Lock 10 ML Syringe IV (21:29)
[2024-04-03] MEDS: Ipratropium/Albuterol Sulfate 3 ML AMPUL.NEB INHALATION (23:51)
[2024-04-04] VITALS (23 sets, daily range): BP systolic 123–161; BP diastolic 46–86; PULSE 47–68; RESP 18–22; TEMP 36.5–36.9; O2SAT 87–98
[2024-04-04] MEDS: Ipratropium/Albuterol Sulfate 3 ML AMPUL.NEB INHALATION ×6 (02:55→23:21)
[2024-04-04] MEDS: Levothyroxine 112 MCG Tablet PO (05:53)
[2024-04-04] MEDS: Acetaminophen 500 MG Tablet 1000 MG PO ×3 (05:53→21:19)
[2024-04-04 06:49] LABS: Absolute Lymphocyte Count 1.11 X10^3/uL (0.83-4.51); Absolute Neutrophil Count 11.2 X10^3/uL (2.0-7.7); Basophil# 0.04 X10^3/uL; Basophil% 0.3 % (0-1); Eosinophil# 0.35 X10^3/uL; Eosinophils% 2.5 % (0-5); Hematocrit 32.1 % (37-47); Hemoglobin 9.7 g/dL (12.0-15.0); Lymphocyte # 1.11 X10^3/ul (0.83-4.51); Lymphocyte % 7.8 % (19-41); Mean Corp Hgb Conc 30.2 g/dL (32-36); Mean Corpuscular Hgb 27.3 pg (27.0-32.0); Mean Corpuscular Volume 90.4 fL (81-99); Mean Platelet Vol. 9.2 fl (6.2-12.0); Monocyte# 1.42 X10^3/uL; NRBC Flagged by Analyzer 0 % (0-5); Neutrophil % 78.8 % (47-70); Platelet Count 292 K/mm3 (150-450); RBC Distribution Width CV 15.9 % (11.6-14.6); RBC Distribution Width SD 52.6 fl (35.1-43.9); Red Blood Count 3.55 M/mm3 (4.2-5.4); White Blood Count 14.2 K/mm3 (4.4-11.0)
--- NOTE | 2024-04-04 07:09 | PN.HOSP_ITS ---
Reason for Visit Reason for Visit: Diagnoses Elevated white blood cell count, unspecified (04/03/24) Pneumonia, unspecified organism (04/03/24) Acute kidney failure, unspecified (04/03/24) Hypoxemia (04/03/24) Unspecified abnormal findings in urine (04/03/24) Subjective Subjective Still coughing and requring oxygen. HR noted to be in 40s overnight. Objective Data Objective Data Vital Signs: Vital Signs Temp Pulse Resp BP Pulse Ox O2 Del Method O2 Flow Rate 36.7 C 52 L 18 137/49 H 98 Nasal Cannula 3 04/04/24 05:40 04/04/24 05:40 04/04/24 05:40 04/04/24 05:40 04/04/24 05:40 04/04/24 05:44 04/04/24 05:44 Oxygen Flow Rate (L/min) 3 Oxygen Delivery Method Nasal Cannula Weight: 60.6 kg Body Mass Index (BMI) 23.6 Intake & Output: Intake and Output for Last 24 Hours 04/02/24 04/03/24 04/04/24 23:59 23:59 23:59 Intake Total 1305 / 1305 200 / 200 Balance 1305 / 1305 200 / 200 Lab / Micro Data 04/04/24 06:29 04/04/24 06:29 Labs: Laboratory Results - last 24 hr 04/03/24 15:55: WBC 18.4 H, RBC 4.03 L, Hgb 10.9 L, Hct 35.8 L, MCV 88.8, MCH 27.0, MCHC 30.4 L, RDW Std Deviation 52.6 H, RDW Coeff of [place] 16.1 H, Plt Count 345, MPV 9.0, Immature Gran % (Auto) 0.500, Neut % (Auto) 79.8 H, Lymph % (Auto) 9.8 L, [place] % (Auto) 9.1, Eos % (Auto) 0.5, Baso % (Auto) 0.3, Absolute Neuts (auto) 14.7 H, Absolute Lymphs (auto) 1.80, Nucleated RBC % 0, Differential Comment SCANNED, Diff Path Review May foll, Sodium 135 L, Potassium 3.8, Chloride 100, Carbon Dioxide 30.0, Anion Gap 5, BUN 23 H, Creatinine 1.48 H, Estim Creat Clear Calc 23.82, Est GFR (MDRD) Af Amer 43 L, Est GFR (MDRD) Non-Af 36 L, BUN/Creatinine Ratio 15.5, Glucose 97, Calcium 8.8, Total Creatine Kinase 438 H, Troponin I High Sens 28 04/03/24 16:45: Lactic Acid 0.7 04/03/24 17:59: Urine Color Yellow, Urine Clarity Sl. Cloudy, Urine pH 6.0, Ur Specific [place] 1.010, Urine Protein 30 H, Urine Glucose (UA) Normal, Urine Ketones Negative, Urine Occult Blood 25 H, Urine Nitrite Negative, Urine Bilirubin Negative, Urine Urobilinogen Normal, Ur Leukocyte Esterase 500 H, Urine RBC 0-5 SEEN, Urine WBC 25-50 SEEN, Ur Squamous Epith Cells 5-10 SEEN, Urine Bacteria 3+, Urine Mucus 0 SEEN 04/03/24 19:47: Troponin I High Sens 26 04/04/24 06:29: WBC 14.2 H, RBC 3.55 L, Hgb 9.7 L, Hct 32.1 L, MCV 90.4, MCH 27.3, MCHC 30.2 L, RDW Std Deviation 52.6 H, RDW Coeff of [place] 15.9 H, Plt Count 292, MPV 9.2, Immature Gran % (Auto) 0.600, Neut % (Auto) 78.8 H, Lymph % (Auto) 7.8 L, [place] % (Auto) 10.0, Eos % (Auto) 2.5, Baso % (Auto) 0.3, Absolute Neuts (auto) 11.2 H, Absolute Lymphs (auto) 1.11, Nucleated RBC % 0 Micro: Microbiology 04/03/24 17:59 Urine, Clean Catch Legionella Antigen - Final 04/03/24 17:59 Urine, Clean Catch Streptococcus pneumoniae Antigen (M - Final Radiography Diagnostic Testing: Radiology Impression Chest X-Ray 04/03/24 16:05 IMPRESSION: No evidence of pulmonary edema. Mild left basilar atelectasis is seen. In the right lung base, significant atelectasis is noted, particularly medially, also with associated inferior displacement of the right hilum. No pleural effusion or pneumothorax is noted. The cardiomediastinal silhouette is stable, given differences in technique and inspiration No acute osseous change is evident. Reading Location: [address] Rhythm Strip Rhythm Strip: Sinus bradycardia Rate: 45 Ectopy: None Physical Exam Const alert and no apparent distress HEENT head/scalp atraumatic and moist oral mucous membranes Resp normal respiratory effort and no retractions Resp Narrative: bibasilar crackles. Cardio regular rate, regular rhythm, S1 normal heart sound and S2 normal heart sound GI normal to inspection, nondistended, normoactive bowel sounds, soft to palpation, non-tender and non-distended Neuro Sensorium / Orientation: awake and alert Assessment & Plan Assessment/Plan (1) Pneumonia: (2) Leukocytosis: (3) NANCY (acute kidney injury): (4) Abnormal urinalysis: (5) Hypoxia: PLAN: Plan Suspected pneumococcal pneumonia * likely post influenza * strep and legionella antigens negative. * abx w CTX and azithromycin * encouraged ongoing PEP. UTI * follow up UCx already on abx as above. Aflutter * HR down into the 40s at night. on carvedilol 3.125 BID and amiodarone 200/d * Will put hold parameters on those medications. * continue anticoagulation with apixaban. DVT prophylaxis: not indicated as already on apixaban. CODE STATUS DNR CCA with no intubation Charges/Coding Visit Charges Inpatient E&M: 70196 Subs Hosp L2
[2024-04-04 07:33] LABS: ALB/GLOB Ratio 0.5 RATIO (0.9-2.4); AST(SGOT) 35 U/L (15-37); Alanine Aminotransfer ALT/SGPT 24 U/L (13-56); Albumin, Serum 2.1 g/dL (3.2-5.0); Alkaline Phosphatase 73 U/L (45-117); Anion Gap 5 (5-15); BUN 19 mg/dL (7-18); BUN/Creat Ratio 19.1 RATIO (10-20); Calcium,Total 7.8 mg/dL (8.5-10.1); Chloride 107 mmol/L (98-107); EST Glomerular Filtration Rate 56 mL/min (>60); Est Glom Filt Rate - Afr Amer 68 mL/min (>60); Estimated Creatinine Clearance 35.26 ml/min; Globulin 3.9 g/dL (2.2-4.2); Glucose 100 mg/dL (74-106); Magnesium 2.3 mg/dL (1.6-2.6); Phosphorus 3.3 mg/dL (2.5-4.9); Potassium 3.5 mmol/L (3.5-5.1); Sodium Level 138 mmol/L (136-145); Thyroid Stim Hormone (TSH) 0.123 uIU/mL (0.358-3.740)
[2024-04-04] MEDS: Ezetimibe 10 MG Tablet PO (10:12)
[2024-04-04] MEDS: Clopidogrel Bisulfate 75 MG Tablet PO (10:12)
[2024-04-04] MEDS: Pantoprazole Sodium 20 MG Tablet PO (10:12)
[2024-04-04] MEDS: guaiFENesin 1,200 MG Tablet 1200 MG PO ×2 (10:12→21:19)
[2024-04-04] MEDS: Sertraline 50 MG Tablet PO (10:12)
[2024-04-04] MEDS: APIXABAN 2.5 MG TABLET (WCH) PO ×2 (10:12→21:18)
[2024-04-04] MEDS: 0.9% Saline Lock 10 ML Syringe IV ×2 (10:13→21:19)
[2024-04-04] MEDS: Ceftriaxone 2 GM in 0.9% Normal Saline (50mL MB+) 50 ML IV (10:14)
[2024-04-04] MEDS: Azithromycin 500 MG in 0.9% Normal Saline (250mL Bag) 250 ML 255 MG IV (11:14)
[2024-04-04] MEDS: Losartan Potassium 50 MG Tablet PO ×2 (11:15→21:18)
[2024-04-04] MEDS: amLODIPine 5 MG Tablet PO (11:15)
--- NOTE | 2024-04-04 12:42 | CASEMGMT ---
MORA PRADHAN Assessment: Face to Face with pt for initial transition planning/care coordination assessment. RN CAROLYNN introduced self and role at [facility], pt voices understanding and consents to assessment. Pt is A&O x4 and answers all questions appropriately at this time. Pt sitting up in chair with nurses at bedside in no distress. Care providers, pharmacy, and demographics verified/updated. Admitting Dx: PNA Strata Score: 3 PCP:[facility] Specialists:Karin cardio; varsha Sanchez Preferred Pharmacy: [facility] Insurance: MCR, [employer] Prescription Benefit: yes LNOK: Von Cameron, son; Nya Cameron, dil Living Arrangements: Pt lives alone in a single story condo with 1 step to enter. Pt reports she was I in ADL/IADLs and denies concerns at home. States pt dil gets groceries sometimes. Transportation: Pt drives self and denies concerns with transportation. DME:vandana cervantes, w/c, pt had a pox but it quit working, she states she is going to obtain another one HHC/SNF: Pt has had [facility] HHC in the past, denies hx of SNF stays Pt states no concerns with going home at time of dc. Pt does not feel that she needs HHC at this time. Discussed with pt should she need oxygen upon dc the local in network DME companies, pt chose [employer]. Pt states no further concerns/needs. CM to follow. Advised pt to ask CM if any further questions/concerns/needs arise, voices understanding. Pt Goal: Home Plan: Home follow for oxyen. If pt needs oxygen, may revisit for HHC SN. Patricia VELAZCO CM
[2024-04-04] MEDS: Ensure Plus High Protein 120 ML LIQUID PO (14:29)
[2024-04-04 15:30] LABS: Pathologist Review Reviewed
[2024-04-04] MEDS: traZODone 50 MG Tablet PO (21:18)
[2024-04-04] MEDS: MELATONIN 10 MG TABLET PO (21:19)
[2024-04-04] MEDS: Pravastatin 80 MG Tablet PO (21:19)
[2024-04-05] VITALS (17 sets, daily range): BP systolic 138–165; BP diastolic 50–63; PULSE 52–64; RESP 17–22; TEMP 36.7–37.2; O2SAT 79–96
[2024-04-05] MEDS: Ipratropium/Albuterol Sulfate 3 ML AMPUL.NEB INHALATION ×5 (02:19→19:00)
[2024-04-05] MEDS: Acetaminophen 500 MG Tablet 1000 MG PO ×3 (06:13→20:39)
[2024-04-05] MEDS: Levothyroxine 112 MCG Tablet PO (06:13)
--- NOTE | 2024-04-05 07:32 | PN.HOSP_ITS ---
Reason for Visit Reason for Visit: Diagnoses Elevated white blood cell count, unspecified (04/03/24) Pneumonia, unspecified organism (04/03/24) Acute kidney failure, unspecified (04/03/24) Hypoxemia (04/03/24) Unspecified abnormal findings in urine (04/03/24) Subjective Subjective Feels well. No acute issues. Objective Data Objective Data Vital Signs: Vital Signs Temp Pulse Resp BP Pulse Ox O2 Del Method O2 Flow Rate 36.7 C 55 L 20 H 156/54 H 96 Nasal Cannula 2 04/05/24 06:12 04/05/24 06:12 04/05/24 06:12 04/05/24 06:12 04/05/24 06:12 04/05/24 06:12 04/05/24 06:12 Oxygen Flow Rate (L/min) 2 Oxygen Delivery Method Nasal Cannula Weight: 60.6 kg Body Mass Index (BMI) 23.6 Intake & Output: Intake and Output for Last 24 Hours 04/03/24 04/04/24 04/05/24 23:59 23:59 23:59 Intake Total 1305 / 1305 505 / 505 Balance 1305 / 1305 505 / 505 Lab / Micro Data 04/04/24 06:29 04/04/24 06:29 Labs: Laboratory Results - last 24 hr 04/03/24 15:55: Diff Path Review Reviewed 04/04/24 06:29: Sodium 138, Potassium 3.5, Chloride 107, Carbon Dioxide 27.0, Anion Gap 5, BUN 19 H, Creatinine 1.00, Estim Creat Clear Calc 35.26, Est GFR (MDRD) Af Amer 68, Est GFR (MDRD) Non-Af 56 L, BUN/Creatinine Ratio 19.1, Glucose 100, Calcium 7.8 L, Phosphorus 3.3, Magnesium 2.3, Total Bilirubin 0.40, AST 35, ALT 24, Alkaline Phosphatase 73, Total Protein 6.0 L, Albumin 2.1 L, Globulin 3.9, Albumin/Globulin Ratio 0.5 L, TSH 0.123 L Micro: Microbiology 04/03/24 17:59 Urine, Clean Catch Urine Culture - Preliminary Culture exhibits no growth. 04/03/24 17:59 Urine, Clean Catch Legionella Antigen - Final 04/03/24 17:59 Urine, Clean Catch Streptococcus pneumoniae Antigen (M - Final Rhythm Strip Rhythm Strip: Sinus bradycardia Rate: 45 Ectopy: None Physical Exam Const alert and no apparent distress HEENT head/scalp atraumatic and moist oral mucous membranes Resp normal respiratory effort, no retractions, no use of accessory muscles and clear to auscultation bilaterally Cardio regular rate, regular rhythm, S1 normal heart sound and S2 normal heart sound GI normal to inspection, nondistended, normoactive bowel sounds, soft to palpation, non-tender and non-distended Neuro Sensorium / Orientation: awake Assessment & Plan Assessment/Plan (1) Pneumonia: (2) Leukocytosis: (3) NANCY (acute kidney injury): (4) Abnormal urinalysis: (5) Hypoxia: PLAN: Plan S. aureus pneumonia * likely post influenza * strep and legionella antigens negative. SCx pending. * abx w CTX and azithromycin. Add vancomycin until Cx fully identified. * encouraged ongoing PEP. * will require oxygen 2 liters with rest and 3 liters with activity. UTI * follow up UCx already on abx as above. Aflutter * HR down into the 40s at night. on carvedilol 3.125 BID and amiodarone 200/d * Will put hold parameters on those medications. * continue anticoagulation with apixaban. DVT prophylaxis: not indicated as already on apixaban. CODE STATUS DNR CCA with no intubation Charges/Coding Visit Charges Inpatient E&M: 89882 Subs Hosp L2
[2024-04-05] MEDS: Azithromycin 500 MG in 0.9% Normal Saline (250mL Bag) 250 ML 255 MG IV (09:26)
[2024-04-05] MEDS: Ceftriaxone 2 GM in 0.9% Normal Saline (50mL MB+) 50 ML IV (11:31)
[2024-04-05] MEDS: Carvedilol 3.125 MG TABLET PO (11:32)
[2024-04-05] MEDS: Clopidogrel Bisulfate 75 MG Tablet PO (11:35)
[2024-04-05] MEDS: guaiFENesin 1,200 MG Tablet 1200 MG PO ×2 (11:35→20:41)
[2024-04-05] MEDS: Ezetimibe 10 MG Tablet PO (11:36)
[2024-04-05] MEDS: Sertraline 50 MG Tablet PO (11:36)
[2024-04-05] MEDS: amLODIPine 5 MG Tablet PO (11:36)
[2024-04-05] MEDS: APIXABAN 2.5 MG TABLET (WCH) PO ×2 (11:36→20:40)
[2024-04-05] MEDS: Losartan Potassium 50 MG Tablet PO ×2 (11:36→20:40)
[2024-04-05] MEDS: Pantoprazole Sodium 20 MG Tablet PO (11:40)
--- NOTE | 2024-04-05 12:04 | CASEMGMT ---
Addendum entered by Basilia Orta 04/05/24 15:02: Pura from [facility] called this MORA PRADHAN back. She states they were @ lunch and are not having phone issues. Made aware [facility] retail will need to call them to have Rx's transferred. MORA PRADHAN attempted to call [facility] again while Pura still on the line and still getting a busy signal. [facility] retail pharmacy not able to call [facility]. Pura states will cancel the Rx's @ [facility]. MORA PRADHAN notified Dr Saravia of need for new Rx's to be sent to [facility] retail pharmacy. Addendum entered by Basilia Orta 04/05/24 14:58: Per Antonino, he had not taken an O2 tank into pt's room yet. Addendum entered by Basilia Orta 04/05/24 14:53: Correction: Pt is not set up with [facility]. Addendum entered by Basilia Orta 04/05/24 14:51: Sputum cx's + and pt being started on IV atb. Pt will not be discharging home today. Hollie @ [facility] made aware. Addendum entered by Basilia Orta 04/05/24 13:08: Pt states her DIL will be taking her home @ discharge and will come get her when she gets off of work, around 3/3:30 PM. Antonino VELAZCO, made aware. Portable O2 tank to be provided to pt from [facility] supply. Antonino VELAZCO, made aware. Original Note: MORA PRADHAN NOTE: Discussed discharge. Pt stated initially she may be interested in [facility]. Discussed [facility]'s criteria of being homebound and she states she is not homebound and does not anticipate she will be homebound @ dc. She was made aware to f/u with PCP. Home amb testing has been completed. Pt qualifies for O2 @ 2 l/m @ rest and 3 l/m w/exertion. Script obtained and sent to [facility] via [employer]. Educated pt on home O2 set-up process and importance of calling [facility] prior to leaving the hospital to home O2 delivery. She voices understanding. She states she has a pulse ox @ home, but it stopped working. She states she will try to change the batteries 1st and if that does not work, she will purchase another one. She inquired about locations to purchase this and RN CM provided this info. She denies having other discharge needs/concerns. Judi NESSN RN CM
--- NOTE | 2024-04-05 15:05 | CASEMGMT ---
Sputum cx's + and pt being started on IV atb. Pt will not be discharging home today. Message sent to [facility] via [employer] notifying them pt not discharging home today. Addendum entered by Basilia Orta 04/05/24 13:08: Pt states her DIL will be taking her home @ discharge and will come get her when she gets off of work, around 3/3:30 PM. Antonino VELAZCO, made aware. Portable O2 tank to be provided to pt from [facility] supply. Antonino VELAZCO, made aware. Original Note: MORA PRADHAN NOTE: Discussed discharge. Pt stated initially she may be interested in [facility]. Discussed [facility]'s criteria of being homebound and she states she is not homebound and does not anticipate she will be homebound @ dc. She was made aware to f/u with PCP. Home amb testing has been completed. Pt qualifies for O2 @ 2 l/m @ rest and 3 l/m w/exertion. Script obtained and sent to [facility] via [employer]. Educated pt on home O2 set-up process and importance of calling [facility] prior to leaving the hospital to home O2 delivery. She voices understanding. She states she has a pulse ox @ home, but it stopped working. She states she will try to change the batteries 1st and if that does not work, she will purchase another one. She inquired about locations to purchase this and MORA PRADHAN provided this info. She denies having other discharge needs/concerns. Judi HUNTLEY RN, CM
[2024-04-05] MEDS: Vancomycin HCl 1,500 MG in 0.9% Normal Saline (500mL Bag) 500 ML 250 MG IV (17:35)
--- NOTE | 2024-04-05 18:02 | PCM.RX.CS ---
Consult Antibiotic Management Pharmacy has been consulted to manage selected antibiotic: Vancomycin Type of Intervention Type of Consult: New start Suspected Infection Suspected Infection: Pneumonia Prior Doses of Antibiotics Prior Doses of Antibiotics Received/Current Regimen: Vancomycin 1500 mg IV x 1 followed by 750 mg Q24H Labs Labs: Sodium 138 mmol/L (136-145) 04/04/24 06:29 Potassium 3.5 mmol/L (3.5-5.1) 04/04/24 06:29 Chloride 107 mmol/L (98-107) 04/04/24 06:29 Carbon Dioxide 27.0 mmol/L (21.0-32.0) 04/04/24 06:29 Anion Gap 5 (5-15) 04/04/24 06:29 BUN 19 mg/dL (7-18) H 04/04/24 06:29 Creatinine 1.00 mg/dL (0.55-1.02) 04/04/24 06:29 Est GFR (MDRD) Af Amer 68 mL/min (>60) 04/04/24 06:29 Est GFR (MDRD) Non-Af 56 mL/min (>60) L 04/04/24 06:29 BUN/Creatinine Ratio 19.1 RATIO (10-20) 04/04/24 06:29 Glucose 100 mg/dL (74-106) 04/04/24 06:29 Microbiology Microbiology: Microbiology 04/04/24 08:27 Sputum, Expectorated/Coughed Gram Stain - Final 04/04/24 08:27 Sputum, Expectorated/Coughed Respiratory Culture - Preliminary Staphylococcus aureus 04/03/24 17:59 Urine, Clean Catch Urine Culture - Final Mixed Gram Positive Organisms 04/03/24 17:59 Urine, Clean Catch Legionella Antigen - Final 04/03/24 17:59 Urine, Clean Catch Streptococcus pneumoniae Antigen (M - Final Dosing Weight Weight used for dosin kg Estimated Creatinine Clearance Estimated Creatinine Clearance: ~ 35 Goal Trough Goal Trough: 15-20 mcg/mL Pharmacy Plan for Drug Dosing Pharmacy Plan for Drug Dosing: Vancomycin 1500 mg IV x 1 followed by 750 mg Q24H Pharmacy Service will continue to monitor and adjust dosing as required. Follow-Up Labs Follow-Up Labs: Trough: Vancomycin Date/Time Labs Ordered Labs to be done on [date and time ordered]: 04/07/24 @ 1700
[2024-04-05] MEDS: 0.9% Saline Lock 10 ML Syringe IV ×2 (20:39→20:50)
[2024-04-05] MEDS: traZODone 50 MG Tablet PO (20:40)
[2024-04-05] MEDS: Pravastatin 80 MG Tablet PO (20:40)
[2024-04-05] MEDS: MELATONIN 10 MG TABLET PO (20:41)
[2024-04-06] VITALS (13 sets, daily range): BP systolic 126–169; BP diastolic 43–75; PULSE 52–66; RESP 16–22; TEMP 36.6–37.3; O2SAT 92–95
[2024-04-06] MEDS: Ipratropium/Albuterol Sulfate 3 ML AMPUL.NEB INHALATION ×4 (03:03→23:29)
[2024-04-06 06:06] LABS: Absolute Lymphocyte Count 1.36 X10^3/uL (0.83-4.51); Absolute Neutrophil Count 6.8 X10^3/uL (2.0-7.7); Basophil# 0.07 X10^3/uL; Basophil% 0.7 % (0-1); Eosinophil# 0.47 X10^3/uL; Eosinophils% 4.7 % (0-5); Hematocrit 32.8 % (37-47); Hemoglobin 10.2 g/dL (12.0-15.0); Lymphocyte # 1.36 X10^3/ul (0.83-4.51); Lymphocyte % 13.6 % (19-41); Mean Corp Hgb Conc 31.1 g/dL (32-36); Mean Corpuscular Hgb 27.6 pg (27.0-32.0); Mean Corpuscular Volume 88.9 fL (81-99); Mean Platelet Vol. 9.3 fl (6.2-12.0); Monocyte# 1.26 X10^3/uL; Monocyte% 12.6 % (0-10); NRBC Flagged by Analyzer 0 % (0-5); Neutrophil # 6.75 X10^3/uL (2.7-7.7); Neutrophil % 67.7 % (47-70); Platelet Count 354 K/mm3 (150-450); RBC Distribution Width CV 15.9 % (11.6-14.6); RBC Distribution Width SD 51.8 fl (35.1-43.9); Red Blood Count 3.69 M/mm3 (4.2-5.4)
[2024-04-06 06:34] LABS: Anion Gap 6 (5-15); BUN 11 mg/dL (7-18); BUN/Creat Ratio 15.8 RATIO (10-20); Calcium,Total 8.1 mg/dL (8.5-10.1); Chloride 109 mmol/L (98-107); EST Glomerular Filtration Rate 86 mL/min (>60); Est Glom Filt Rate - Afr Amer 104 mL/min (>60); Estimated Creatinine Clearance 44.08 ml/min; Glucose 89 mg/dL (74-106); Potassium 3.7 mmol/L (3.5-5.1); Sodium Level 141 mmol/L (136-145)
[2024-04-06] MEDS: Levothyroxine 112 MCG Tablet PO (07:05)
[2024-04-06] MEDS: Acetaminophen 500 MG Tablet 1000 MG PO ×3 (07:06→21:59)
--- NOTE | 2024-04-06 07:56 | PN.HOSP_ITS ---
Reason for Visit Reason for Visit: Diagnoses Elevated white blood cell count, unspecified (04/03/24) Pneumonia, unspecified organism (04/03/24) Acute kidney failure, unspecified (04/03/24) Hypoxemia (04/03/24) Unspecified abnormal findings in urine (04/03/24) Subjective Subjective Feeling well. No new complaints. Objective Data Objective Data Vital Signs: Vital Signs Temp Pulse Resp BP Pulse Ox O2 Del Method O2 Flow Rate 37.3 C 61 20 H 166/47 H 94 Nasal Cannula 2 04/06/24 06:58 04/06/24 06:58 04/06/24 06:58 04/06/24 06:58 04/06/24 06:58 04/06/24 06:58 04/06/24 06:58 Oxygen Flow Rate (L/min) 2 Oxygen Delivery Method Nasal Cannula Weight: 60.6 kg Body Mass Index (BMI) 23.6 Intake & Output: Intake and Output for Last 24 Hours 04/04/24 04/05/24 04/06/24 23:59 23:59 23:59 Intake Total 505 / 505 835 / 835 Balance 505 / 505 835 / 835 Lab / Micro Data 04/06/24 04:40 04/06/24 04:40 Labs: Laboratory Results - last 24 hr 04/06/24 04:40: WBC 10.0, RBC 3.69 L, Hgb 10.2 L, Hct 32.8 L, MCV 88.9, MCH 27.6, MCHC 31.1 L, RDW Std Deviation 51.8 H, RDW Coeff of [place] 15.9 H, Plt Count 354, MPV 9.3, Immature Gran % (Auto) 0.700, Neut % (Auto) 67.7, Lymph % (Auto) 13.6 L, [place] % (Auto) 12.6 H, Eos % (Auto) 4.7, Baso % (Auto) 0.7, Absolute Neuts (auto) 6.8, Absolute Lymphs (auto) 1.36, Nucleated RBC % 0, Sodium 141, Potassium 3.7, Chloride 109 H, Carbon Dioxide 26.0, Anion Gap 6, BUN 11, Creatinine 0.70, Estim Creat Clear Calc 44.08, Est GFR (MDRD) Af Amer 104, Est GFR (MDRD) Non-Af 86, BUN/Creatinine Ratio 15.8, Glucose 89, Calcium 8.1 L Micro: Microbiology 04/03/24 17:08 Blood Culture (Wb) - Right Wrist Blood Culture - Preliminary No growth in 48 hours. 04/03/24 16:45 Blood Culture (Wb) - Anticubital Left Blood Culture - Preliminary No growth in 48 hours. 04/04/24 08:27 Sputum, Expectorated/Coughed Gram Stain - Final 04/04/24 08:27 Sputum, Expectorated/Coughed Respiratory Culture - Preliminary Staphylococcus aureus 04/03/24 17:59 Urine, Clean Catch Urine Culture - Final Mixed Gram Positive Organisms 04/03/24 17:59 Urine, Clean Catch Legionella Antigen - Final 04/03/24 17:59 Urine, Clean Catch Streptococcus pneumoniae Antigen (M - Final Rhythm Strip Rhythm Strip: Sinus bradycardia Rate: 45 Ectopy: None Physical Exam Const alert and no apparent distress HEENT head/scalp atraumatic and moist oral mucous membranes Resp normal respiratory effort, no retractions, no use of accessory muscles and clear to auscultation bilaterally Cardio regular rate, regular rhythm, S1 normal heart sound and S2 normal heart sound GI normal to inspection, nondistended, normoactive bowel sounds, soft to palpation, non-tender and non-distended Extremity normal to inspection and full ROM Assessment & Plan Assessment/Plan (1) Pneumonia: (2) Leukocytosis: (3) NANCY (acute kidney injury): (4) Abnormal urinalysis: (5) Hypoxia: PLAN: Plan S. aureus pneumonia * likely post influenza * strep and legionella antigens negative. SCx pending. * abx w CTX and azithromycin. Add vancomycin until Cx fully identified. * encouraged ongoing PEP. * will require oxygen 2 liters with rest and 3 liters with activity. * Follow up sputum culture, thus far showing S. aureus, but no sensitives yet. UTI * follow up UCx already on abx as above. Aflutter * on carvedilol 3.125 BID and amiodarone 200/d * Will put hold parameters on those medications. * continue anticoagulation with apixaban. DVT prophylaxis: not indicated as already on apixaban. CODE STATUS DNR CCA with no intubation Disposition: pending final SCx results. Charges/Coding Visit Charges Inpatient E&M: 52194 Subs Hosp L2
[2024-04-06] MEDS: Senna/Docusate Sodium 1 Tablet 2 TABLET PO (08:39)
[2024-04-06] MEDS: Ceftriaxone 2 GM in 0.9% Normal Saline (50mL MB+) 50 ML IV (09:35)
[2024-04-06] MEDS: APIXABAN 2.5 MG TABLET (WCH) PO ×2 (11:30→22:00)
[2024-04-06] MEDS: amLODIPine 5 MG Tablet PO (11:31)
[2024-04-06] MEDS: Sertraline 50 MG Tablet PO (11:31)
[2024-04-06] MEDS: Azithromycin 500 MG in 0.9% Normal Saline (250mL Bag) 250 ML 255 MG IV (11:31)
[2024-04-06] MEDS: Clopidogrel Bisulfate 75 MG Tablet PO (11:32)
[2024-04-06] MEDS: Pantoprazole Sodium 20 MG Tablet PO (11:32)
[2024-04-06] MEDS: Ezetimibe 10 MG Tablet PO (11:32)
[2024-04-06] MEDS: guaiFENesin 1,200 MG Tablet 1200 MG PO ×2 (11:32→22:00)
[2024-04-06] MEDS: Losartan Potassium 50 MG Tablet PO ×2 (11:33→21:59)
[2024-04-06] MEDS: Vancomycin HCl 750 MG in 0.9% Normal Saline (250mL Bag) 250 ML 250 MG IV (17:13)
[2024-04-06] MEDS: traZODone 50 MG Tablet PO (21:59)
[2024-04-06] MEDS: Pravastatin 80 MG Tablet PO (21:59)
[2024-04-06] MEDS: MELATONIN 10 MG TABLET PO (21:59)
[2024-04-07] VITALS (11 sets, daily range): BP systolic 122–163; BP diastolic 63–70; PULSE 55–62; RESP 16–19; TEMP 36.7–36.9; O2SAT 87–97
[2024-04-07] MEDS: Ipratropium/Albuterol Sulfate 3 ML AMPUL.NEB INHALATION ×4 (02:46→16:05)
[2024-04-07] MEDS: Acetaminophen 500 MG Tablet 1000 MG PO ×2 (06:55→15:22)
[2024-04-07] MEDS: Levothyroxine 112 MCG Tablet PO (06:55)
--- NOTE | 2024-04-07 08:27 | PN.HOSP_ITS ---
Reason for Visit Reason for Visit: Diagnoses Elevated white blood cell count, unspecified (04/03/24) Pneumonia, unspecified organism (04/03/24) Acute kidney failure, unspecified (04/03/24) Hypoxemia (04/03/24) Unspecified abnormal findings in urine (04/03/24) Subjective Subjective Complains of back from fall days ago. Objective Data Objective Data Vital Signs: Vital Signs Temp Pulse Resp BP Pulse Ox O2 Del Method O2 Flow Rate 36.7 C 55 L 16 155/70 H 94 Nasal Cannula 2 04/07/24 02:00 04/07/24 03:00 04/07/24 02:46 04/07/24 02:00 04/07/24 02:00 04/07/24 03:00 04/07/24 03:00 Oxygen Flow Rate (L/min) 2 Oxygen Delivery Method Nasal Cannula Weight: 60.6 kg Body Mass Index (BMI) 23.6 Intake & Output: Intake and Output for Last 24 Hours 04/05/24 04/06/24 04/07/24 23:59 23:59 23:59 Intake Total 835 / 835 570 / 970 600 / 600 Balance 835 / 835 570 / 970 600 / 600 Lab / Micro Data 04/06/24 04:40 04/06/24 04:40 Micro: Microbiology 04/04/24 08:27 Sputum, Expectorated/Coughed Gram Stain - Final 04/04/24 08:27 Sputum, Expectorated/Coughed Respiratory Culture - Final Staphylococcus aureus Presumptive C albicans 04/03/24 17:08 Blood Culture (Wb) - Right Wrist Blood Culture - Preliminary No growth in 48 hours. 04/03/24 16:45 Blood Culture (Wb) - Anticubital Left Blood Culture - Preliminary No growth in 48 hours. 04/03/24 17:59 Urine, Clean Catch Urine Culture - Final Mixed Gram Positive Organisms 04/03/24 17:59 Urine, Clean Catch Legionella Antigen - Final 04/03/24 17:59 Urine, Clean Catch Streptococcus pneumoniae Antigen (M - Final Rhythm Strip Rhythm Strip: Sinus bradycardia Rate: 45 Ectopy: None Physical Exam Const alert and no apparent distress HEENT head/scalp atraumatic and moist oral mucous membranes Resp normal respiratory effort, no retractions, no use of accessory muscles and clear to auscultation bilaterally Cardio regular rate, regular rhythm, S1 normal heart sound and S2 normal heart sound GI normal to inspection, nondistended, normoactive bowel sounds, soft to palpation, non-tender and non-distended Assessment & Plan Assessment/Plan (1) Pneumonia: (2) Leukocytosis: (3) NANCY (acute kidney injury): (4) Abnormal urinalysis: (5) Hypoxia: PLAN: Plan MSSA pneumonia * likely post influenza * strep and legionella antigens negative. SCx pending. * abx w CTX and azithromycin. DC vanomcyin * encouraged ongoing PEP. * will require oxygen 2 liters with rest and 3 liters with activity. * Follow up sputum culture, thus far showing S. aureus, but no sensitives yet. UTI * follow up UCx already on abx as above. Aflutter * on carvedilol 3.125 BID and amiodarone 200/d * Will put hold parameters on those medications. * continue anticoagulation with apixaban. Back pain * states that she's had it for several days, * Xray shows slight decompression of L2 (not L1 as reported on imaging) * unclear if this is contributing, but will add pain control. Not amenable to kyphoplasty. DVT prophylaxis: not indicated as already on apixaban. CODE STATUS DNR CCA with no intubation
[2024-04-07] MEDS: Azithromycin 500 MG in 0.9% Normal Saline (250mL Bag) 250 ML 255 MG IV (09:46)
[2024-04-07] MEDS: guaiFENesin 1,200 MG Tablet 1200 MG PO (10:03)
[2024-04-07] MEDS: Clopidogrel Bisulfate 75 MG Tablet PO (10:04)
[2024-04-07] MEDS: Ezetimibe 10 MG Tablet PO (10:05)
[2024-04-07] MEDS: APIXABAN 2.5 MG TABLET (WCH) PO (10:05)
[2024-04-07] MEDS: Sertraline 50 MG Tablet PO (10:05)
[2024-04-07] MEDS: Pantoprazole Sodium 20 MG Tablet PO (10:05)
--- NOTE | 2024-04-07 10:20 | RAD_ITS ---
PROCEDURE: LUMBAR SPINE 2 OR 3 VIEWS REASON FOR EXAM: 83-year-old female, severe back pain. TECHNIQUE: 3 view(s) of the lumbar spine COMPARISON: MRI L-spine 06/28/2023, L-spine radiographs 06/21/2023. FINDINGS: Diffuse osseous demineralization. Interval cement augmentation of the L4 vertebral body. Mild superior endplate compression fracture deformity of the T11 vertebral body, of indeterminate age. Mild compression deformity of the inferior L2 vertebral body, of indeterminate age. No evidence of fracture. Disc space heights are preserved. Normal alignment. No spondylolisthesis. Partially visualized left total hip arthroplasty. Calcific plaque of the abdominal aorta. Bibasilar atelectasis. RAD/Lumbar Spine 2 or 3 Views IMPRESSION: No obvious acute fracture. Mild compression fracture deformity of the T11 and L1 vertebral bodies, of indeterminate age. Reading Location: [id number]
--- NOTE | 2024-04-07 14:21 | DS.PCM_ITS ---
Providers Date of Admission: 04/03/24 Primary Care Physician: Dr. Kenji Osei MD Reason For Visit: PNA Diagnosis Discharge Diagnosis (1) Pneumonia: Status: Acute Code(s): J18.9 - Pneumonia, unspecified organism (2) Leukocytosis: Status: Acute Code(s): D72.829 - Elevated white blood cell count, unspecified (3) NANCY (acute kidney injury): Status: Acute Code(s): N17.9 - Acute kidney failure, unspecified (4) Abnormal urinalysis: Status: Acute Code(s): R82.90 - Unspecified abnormal findings in urine (5) Hypoxia: Status: Acute Code(s): R09.02 - Hypoxemia Plan MSSA pneumonia * likely post influenza * strep and legionella antigens negative. SCx pending. * abx w CTX and azithromycin. DC vanomcyin * encouraged ongoing PEP. * will require oxygen 2 liters with rest and 3 liters with activity. * Follow up sputum culture, thus far showing S. aureus, but no sensitives yet. UTI * follow up UCx already on abx as above. Aflutter * on carvedilol 3.125 BID and amiodarone 200/d * Will put hold parameters on those medications. * continue anticoagulation with apixaban. Back pain * states that she's had it for several days, * Xray shows slight decompression of L2 (not L1 as reported on imaging) * unclear if this is contributing, but will add pain control. Not amenable to kyphoplasty. DVT prophylaxis: not indicated as already on apixaban. CODE STATUS DNR CCA with no intubation Medications at Discharge Home Medications Handicap placard #1 ea 11/19/20 sertraline 50 mg tablet 50 mg PO DAILY ANXIETY 05/06/21 nitroglycerin 0.4 mg sublingual tablet 0.4 mg sublingual Q5M PRN Chest Pain #25 tabs 02/25/22 apixaban 2.5 mg tablet (Eliquis) 2.5 mg PO Q12H blood thinner 04/26/22 melatonin 10 mg tablet 10 mg PO QHS SLEEP 04/26/22 omeprazole 20 mg capsule,delayed release 20 mg PO DAILY GERD 04/26/22 amiodarone 200 mg tablet 200 mg PO DAILY dose reduced at [facility]. 05/04/22 Held on 04/07/24. Instructions: Resume on 04/08/24. clopidogrel 75 mg tablet 75 mg PO DAILY prevent clots 06/13/22 losartan 50 mg tablet 50 mg PO BID BP 06/13/22 amlodipine 5 mg tablet 5 mg PO DAILY BP 06/30/23 ezetimibe 10 mg tablet 10 mg PO DAILY cholesterol 06/30/23 levothyroxine 112 mcg tablet 112 mcg PO DAILY thyroid 06/30/23 acetaminophen 500 mg tablet 1,000 mg (2 x 500 mg) PO Q8 #0 tabs 07/26/23 peg [id number] 1 %-0.2 %-0.2 % eye drops (Artificial Tears ([id number])) 2 drp EACH EYE Q1H PRN DRY EYES #0 mL 07/26/23 sodium chloride 0.65 % nasal spray aerosol (Deep Sea Nasal) 2 spray NASAL TID PRN PRN NASAL DRYNESS #0 mL 07/26/23 trazodone 50 mg tablet 50 mg PO QHS 30 days #30 tabs 07/26/23 hydroxyzine HCl 50 mg tablet 50 mg PO QHS PRN PRN anxiety 03/20/24 ondansetron 4 mg disintegrating tablet 4 mg PO Q6H PRN nausea and vomiting #10 tabs 03/20/24 doxycycline monohydrate 100 mg capsule 100 mg PO BID #10 caps 04/07/24 guaifenesin 1,200 mg tablet, extended release 12 hr (Mucus Relief ER) 1,200 mg PO BID #10 tabs 04/07/24 oxycodone 5 mg tablet 5 mg PO Q6H PRN pain (scale score 7-10) 3 days #12 tabs 04/07/24 pravastatin 80 mg tablet 80 mg PO QHS #0 tabs 04/07/24 Hospital Course Operations None Procedures None Summary of Care Provided Minutes Spent on Discharge: 35 Weight / BMI Weight Weight: 60.6 kg Body Mass Index (BMI) 23.6 ABG / Lab / Microbiology Data 04/06/24 04:40 04/06/24 04:40 Microbiology: Microbiology 04/04/24 08:27 Sputum, Expectorated/Coughed Gram Stain - Final 04/04/24 08:27 Sputum, Expectorated/Coughed Respiratory Culture - Final Staphylococcus aureus Presumptive C albicans 04/03/24 17:08 Blood Culture (Wb) - Right Wrist Blood Culture - Preliminary No growth in 48 hours. 04/03/24 16:45 Blood Culture (Wb) - Anticubital Left Blood Culture - Preliminary No growth in 48 hours. 04/03/24 17:59 Urine, Clean Catch Urine Culture - Final Mixed Gram Positive Organisms 04/03/24 17:59 Urine, Clean Catch Legionella Antigen - Final 04/03/24 17:59 Urine, Clean Catch Streptococcus pneumoniae Antigen (M - Final Radiography Diagnostic Testing: Radiology Impression Lumbar Spine X-Ray 04/07/24 10:20 IMPRESSION: No obvious acute fracture. Mild compression fracture deformity of the T11 and L1 vertebral bodies, of indeterminate age. Reading Location: [id number] D/C Instructions Discharge Diet: No restrictions DC O2, CPAP, BIPAP Needs RN Home O2 Qualification: Home O2 Qualification: Is the patient on home oxygen No 04/07/24 09:29 Home O2 Qualification: AT REST 1- Pulse Ox at rest 93 04/07/24 09:29 2- Pulse Ox at rest 90 04/05/24 11:44 2- Oxygen Flow Rate at rest 2 04/05/24 11:44 3- Pulse Ox at rest 92 04/04/24 08:27 3- Oxygen Flow Rate at rest 3 04/04/24 08:27 Home O2 Qualification: WITH AMBULATION 1- Pulse Ox with ambulation 87 04/07/24 09:29 1- Oxygen Flow Rate with 0 04/07/24 09:29 ambulation 2- Pulse Ox with ambulation 94 04/07/24 09:29 2- Oxygen Flow Rate with 2 04/07/24 09:29 ambulation 3- Pulse Ox with ambulation 90 04/04/24 08:27 3- Oxygen Flow Rate with 5 04/04/24 08:27 ambulation 3- Stopped test - Unable to Yes 04/04/24 08:27 obtain pulse ox >89% w/ max oxyg Home O2 Discharge instructions: Yes Type of respiratory needs?: Oxygen Oxygen frequency: Continuous Continuous oxygen liters per minute: 2 and With Ambulation Oxygen liters per minute during Ambulation: 3 DC home with Oxygen: Yes Home O2 MD Review: I have reviewed the oxygen testing, and the patient qualifies for home oxygen equipment and portability. The patient is mobile in the home and the community. Meaningful Use Info Meaningful Use Meaningful Use Diagnoses (Choose all that apply): None applicable Ischemic Stroke Statin Dosing Therapy Reference: STATIN DOSE THERAPY REFERENCE: * Patients > 75 years receive moderate or high dose statin therapy. * Patients 75 years or YOUNGER should receive HIGH intensity statin dose unless contraindicated. You will be required to document reason for non-treatment if statin daily dose does not meet guidelines. HIGH DOSE STATIN THERAPY DAILY Atorvastatin > than or = to 40 mg Rosuvastatin > than or = to 20 mg Amlodipine + Atorvastatin > than or = to 2.5/40 mg Ezetimibe + Simvastatin 10/80 mg Simvastatin 80mg Discharge Plan Admission Admit Date/Time: 04/03/24 17:42 Primary Reason for Your Visit: pneumonia Attending Provider: Omkar Ocampo Primary Care Provider: Kenji Osei Consulting Providers: Marely Sam Instructions Additional Instructions / Restrictions: You have pneumonia and please continue the antibiotics (doxycycline) as instructed. Your back xray shows that one of you vertebrae may have a small compression fracture, not nearly as severe on you L4 vertebrae that you had kyphoplasty on previously. I will have a short course of oxycodone for you. Additionally, your heart rate has been low during your hospitalization. You did not receive your amiodarone while you were here and only received a 1 time dose of your carvedilol (Coreg). I have stopped your carvedilol and cut back your amiodarone to 100/d. Please, follow up with your international relations professor at your earliest convenience. Discharge Orders/Prescriptions Prescriptions: New pravastatin 80 mg Tablet 80 mg PO QHS Qty: 0 0RF guaifenesin [Mucus Relief ER] 1,200 mg Tablet Extended Release 12hr 1,200 mg PO BID Qty: 10 0RF doxycycline monohydrate 100 mg capsule 100 mg PO BID Qty: 10 0RF oxycodone 5 mg tablet 5 mg PO Q6H PRN (Reason: pain (scale score 7-10)) 3 Days Qty: 12 0RF Continued sertraline 50 mg tablet 50 mg PO DAILY Eliquis 2.5 mg tablet 2.5 mg PO Q12H omeprazole 20 mg capsule,delayed release(DR/EC) 20 mg PO DAILY Patient Comments: STOMACH MEDICINE, ACID REFLUX melatonin 10 mg tablet 10 mg PO QHS losartan 50 mg Tablet 50 mg PO BID clopidogrel 75 mg tablet 75 mg PO DAILY amlodipine 5 mg tablet 5 mg PO DAILY levothyroxine 112 mcg tablet 112 mcg PO DAILY ezetimibe 10 mg tablet 10 mg PO DAILY trazodone 50 mg Tablet 50 mg PO QHS 30 Days Qty: 30 0RF acetaminophen 500 mg Tablet 1,000 mg PO Q8 Qty: 0 0RF Artificial Tears([id number]) 1-0.2-0.2 % Drops 2 drp EACH EYE Q1H PRN (Reason: DRY EYES) Qty: 0 0RF Deep Sea Nasal 0.65 % Aerosol,[place] 2 spray NASAL TID PRN PRN (Reason: NASAL DRYNESS) Qty: 0 0RF hydroxyzine HCl 50 mg tablet 50 mg PO QHS PRN PRN (Reason: anxiety) ondansetron 4 mg tablet,disintegrating 4 mg PO Q6H PRN (Reason: nausea and vomiting) Qty: 10 0RF (DME) Handicap placard See Rx Instructions .Route .MEDSUPPLY Qty: 1 0RF Rx Instructions: Lifetime nitroglycerin 0.4 mg tablet, sublingual 0.4 mg SUBLINGUAL Q5M PRN (Reason: Chest Pain) Qty: 25 1RF Held amiodarone 200 mg tablet 200 mg PO DAILY Hold Instructions: Resume on 04/08/24. Discontinued carvedilol 6.25 mg tablet 3.125 mg PO BID Referrals / Follow Up: Kenji Osei MD [Primary Care Provider] - Within 2 Weeks Disposition Disposition (needs filled in before D/C Order can be placed): Home, Self Care Charges/Coding Visit Charges Inpatient E&M: 71405 Disch Hosp >30min
--- NOTE | 2024-04-07 16:55 | NURSING ---
Sent home with portable o2 tank. Educated pt on how much to use and when and how to operate the portable tank.
== END 2024-04-07 17:07 | disposition home or self-care (01) | DRG 178 ==
LOC: ED 17:54 → MS3 18:05
PROVIDERS: Admitting Provider Internal Medicine; Emergency Provider Emergency Medicine; PCP Internal Medicine
DX: J15.211 Pneumonia due to Methicillin susceptible Staphylococcus aureus (principal); I48.92 Unspecified atrial flutter; N17.9 Acute kidney failure, unspecified; N39.0 Urinary tract infection, site not specified; Z66 Do not resuscitate; F32.A Depression, unspecified; E03.9 Hypothyroidism, unspecified; I25.5 Ischemic cardiomyopathy; I25.10 Atherosclerotic heart disease of native coronary artery without angina pectoris; I25.2 Old myocardial infarction; M54.9 Dorsalgia, unspecified; G47.00 Insomnia, unspecified; Z79.899 Other long term (current) drug therapy; Z79.01 Long term (current) use of anticoagulants; Z95.5 Presence of coronary angioplasty implant and graft
CPT/HCPCS: 36415; 71045; 72100; 80048; 80053; 81001; 82550; 83605; 83735; 84100; 84443; 84484; 85025; 87040; 87070; 87077; 87086; 87088; 87186; 87205; 87449; 93005; 94640; 94668; 97116; 97161; 97802; 99285; A4216; J0696

== ENCOUNTER 2024-04-28 16:45 | Emergency (ER) | payer MEDICARE, OTHER, SELFPAY ==
[2024-04-28 16:46] VITALS: BP 124/57; PULSE 61; RESP 15; TEMP 36.4; O2SAT 95; BMI 21.2
--- NOTE | 2024-04-28 17:01 | EX.ED.DYSGE1 ---
HPI History of Present Illness Chief Complaint: Nausea/Vomiting/Diarrhea Detail of Chief Complaint: Vomiting and diarrhea Informant: patient and family Narrative Narrative: Patient presents to the emergency department with vomiting and diarrhea this around 10 AM this morning. Patient states that she was recently treated for influenza A as well as pneumonia and finished the antibiotics for that. She was then recently diagnosed with a UTI and is currently on Macrobid. About 10 AM she started with vomiting and diarrhea. She has had 5 episodes of vomiting and about 4 episodes of watery stool. She denies any blood in her stool. Denies any significant abdominal pain. She denies fever. Family called primary care physician's office and they were advised to come to the ER. [facility] Medical History Tricuspid valve regurgitation Grade II diastolic dysfunction Left ventricular systolic dysfunction (LVSD) without heart failure Coronary artery disease Preoperative cardiovascular examination Closed fracture of left hip Fall Chronic back pain CKD (chronic kidney disease) Anticoagulant long-term use CAD (coronary artery disease) Paroxysmal atrial flutter Bleeding tendency Post-menopausal High cholesterol History of stress test Osteoporosis GERD (gastroesophageal reflux disease) Hypertension Non-rheumatic mitral regurgitation Tachycardia Bladder prolapse Nonrheumatic mitral valve disorder Abnormal stress test Pure hypercholesterolemia Essential hypertension Atherosclerotic heart disease of [place] coronary artery without angina pectoris History of coronary artery stent placement (~09/25/13) Old myocardial 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 Ischemic cardiomyopathy Abnormal ECG Abnormal serum enzyme level NSTEMI (non-ST elevation myocardial infarction) Angina pectoris Chest pain Hypothyroidism Home Medications ?Medication ?Instructions ?Recorded ?Last Taken ?Type Handicap placard #1 ea 11/19/20 Unknown Rx sertraline 50 mg tablet 50 mg PO DAILY ANXIETY 05/06/21 04/03/24 History nitroglycerin 0.4 mg sublingual 0.4 mg sublingual Q5M PRN Chest 02/25/22 04/20/22 04:30 Rx tablet Pain #25 tabs apixaban 2.5 mg tablet (Eliquis) 2.5 mg PO Q12H blood thinner 04/26/22 04/03/24 History melatonin 10 mg tablet 10 mg PO QHS SLEEP 04/26/22 04/02/24 History omeprazole 20 mg capsule,delayed 20 mg PO DAILY GERD 04/26/22 04/03/24 History release amiodarone 200 mg tablet 200 mg PO DAILY dose reduced at 05/04/22 04/03/24 History Held on 04/07/24. [facility]. Instructions: Resume on 04/08/24. clopidogrel 75 mg tablet 75 mg PO DAILY prevent clots 06/13/22 04/03/24 History losartan 50 mg tablet 50 mg PO BID BP 06/13/22 04/03/24 History amlodipine 5 mg tablet 5 mg PO DAILY BP 06/30/23 04/03/24 History ezetimibe 10 mg tablet 10 mg PO DAILY cholesterol 06/30/23 04/03/24 History levothyroxine 112 mcg tablet 112 mcg PO DAILY thyroid 06/30/23 04/03/24 History acetaminophen 500 mg tablet 1,000 mg (2 x 500 mg) PO Q8 #0 tabs 07/26/23 04/03/24 Rx peg [id number] 1 2 drp EACH EYE Q1H PRN DRY EYES #0 07/26/23 04/03/24 Rx %-0.2 %-0.2 % eye drops mL (Artificial Tears ([id number])) sodium chloride 0.65 % nasal spray 2 spray NASAL TID PRN PRN NASAL 07/26/23 Unknown Rx aerosol (Deep Sea Nasal) DRYNESS #0 mL trazodone 50 mg tablet 50 mg PO QHS 30 days #30 tabs 07/26/23 04/02/24 Rx hydroxyzine HCl 50 mg tablet 50 mg PO QHS PRN PRN anxiety 03/20/24 04/02/24 History ondansetron 4 mg disintegrating 4 mg PO Q6H PRN nausea and 03/20/24 Unknown Rx tablet vomiting #10 tabs doxycycline monohydrate 100 mg 100 mg PO BID #10 caps 04/07/24 Unknown Rx capsule guaifenesin 1,200 mg tablet, 1,200 mg PO BID #10 tabs 04/07/24 Unknown Rx extended release 12 hr (Mucus Relief ER) oxycodone 5 mg tablet 5 mg PO Q6H PRN pain (scale score 04/07/24 Unknown Rx 7-10) 3 days #12 tabs pravastatin 80 mg tablet 80 mg PO QHS #0 tabs 04/07/24 Unknown Rx ondansetron 4 mg disintegrating 4 mg PO Q8H PRN PRN Nausea #10 tabs 04/28/24 Unknown Rx tablet Allergy/AdvReac Type Severity Reaction Status Date / Time lisinopril AdvReac Intermediate Cough Verified 04/28/24 16:48 Family History Mother Breast cancer Myocardial infarction CAD (coronary artery disease) Diabetes Father Myocardial infarction CAD (coronary artery disease) Brother Myocardial infarction Diabetes CAD (coronary artery disease) Sister Breast cancer Hypertension Surgical History History of left hip hemiarthroplasty History of heart artery stent H/O cardiac catheterization Presence of coronary angioplasty implant and graft (~09/25/13) Social History household members: none Smoking Status: Never smoker alcohol intake: never substance use type: does not use caffeine: No what type of physical activity do you participate in: walking frequency: 3-4 times per week duration: 45-60 minutes/day seatbelt use: always do you feel safe at home: Yes ROS ROS ED Review of Systems ROS Unobtainable: other Constitutional Constitutional ED: Reports lethargy; Denies chills, fever(s), sweats or weight loss Eyes Eyes: Denies blurry vision, change in vision or diplopia ENT ENT ED: Denies rhinorrhea or sore throat Cardiovascular Cardiovascular: Denies chest pain, orthopnea or racing heartbeat Respiratory/Chest Respiratory/Chest: Denies cough, dyspnea, dyspnea on exertion, orthopnea or sputum Gastrointestinal Gastrointestinal: Reports diarrhea, nausea and vomiting; Denies abdominal pain Genitourinary Genitourinary ED: Denies dysuria, hematuria or urinary frequency Musculoskeletal Musculoskeletal: Denies arthralgias, back pain, myalgias or neck pain Integumentary Denies abscess, Abrasions or rash Neurologic Neurologic: Denies headache(s) or weakness Psychiatric Psychiatric: Denies anxiety, depression or suicidal thoughts Endocrine Endocrinology: Denies polydipsia, polyphagia or polyuria Hematologic/Lymphatic Hematologic/Lymphatic: Denies easy bleeding, easy bruising or lymphadenopathy Allergic/Immunologic Allergic/Immunologic ED: Denies mouth swelling, tongue swelling or urticaria EXAM Physical Exam Const Vital Signs: 04/28/24 16:46 04/28/24 18:46 Temperature 97.6 F L Temperature Source Temporal Pulse Rate 61 66 Respiratory Rate 15 12 Blood Pressure 124/57 H 135/60 H Blood Pressure Mean 79 85 Pulse Ox 95 99 Oxygen Delivery Method Room Air Room Air Positive well nourished and well developed General Appearance ED: well developed and NAD HEENT Reports TM's clear and moist mucous membranes normocephalic and atraumatic; Negative for trauma or tenderness Tympanic Membrane ED: Yes TM's clear Eyes PERRL and EOMs intact bilaterally General Eye ED: Negative for pale conjunctiva or scleral icterus Neck no lymphadenopathy, supple and no JVD General: Negative for tenderness Chest Wall inspection of chest normal and palpation of chest normal Chest: Negative for tenderness Resp normal respiratory effort and clear to auscultation bilaterally Effort and Inspection: Negative for respiratory distress or pain with movement Auscultation: Negative for rhonchi, wheezes or diminished lung sounds Cardio regular rate, regular rhythm, S1 normal heart sound, S2 normal heart sound and no murmurs Peripheral Pulses: pulses 2+ throughout GI normal to inspection, nondistended, normoactive bowel sounds, soft to palpation, non-tender, non-distended and no masses Back/Spine no CVA tenderness and no thoracic nor lumbar tenderness Extremity normal to inspection General Extremety ED: Negative for edema General Extremity: Negative for edema Neuro oriented x3, CN's II-XII intact bilaterally, no sensory deficits noted and gait normal Sensorium / Orientation: awake, alert, oriented to person, oriented to place and oriented to time Motor Exam: strength 5/5 throughout and strength abnormal Psych mental status grossly normal Skin no rashes or lesions noted and no wounds MDM MDM MDM Narrative Medical decision making narrative: Patient presents with vomiting and diarrhea that started today. Clinically looks well. In the differential would be a viral gastroenteritis versus possibly C. difficile as she has been on multiple antibiotics recently and was hospitalized. IV line established. CBC with differential obtained showed an elevated white count of 17.6 with hemoglobin 12.5 and platelet count of 278. Chemistries unremarkable. BUN was 26 and creatinine 1.01. Urinalysis was normal. I did order stool for C. difficile however that will be pending. Patient was medicated with a liter normal same fluid bolus and was given Zofran 4 mg IV. She had no further vomiting. Clinically she looks well. She has not had any more significant diarrhea. She will be discharged to home as she has an appointment with her primary care physician in 2 days. She is advised to return if persistent vomiting, diarrhea, dehydration, bloody stools, or condition should worsen anyway. Clinically I suspect a viral gastroenteritis Lab Data Attestation: I reviewed the patient's lab results. Labs: Laboratory Results - last 24 hr 04/28/24 04/28/24 17:19 18:10 WBC 17.6 H RBC 4.41 Hgb 12.5 Hct 40.0 MCV 90.7 MCH 28.3 MCHC 31.3 L RDW Std Deviation 57.1 H RDW Coeff of [place] 17.1 H Plt Count 278 MPV 10.2 Immature Gran % (Auto) 0.500 Neut % (Auto) 89.2 H Lymph % (Auto) 1.9 L [place] % (Auto) 7.6 Eos % (Auto) 0.5 Baso % (Auto) 0.3 Absolute Neuts (auto) 15.7 H Absolute Lymphs (auto) 0.33 L Nucleated RBC % 0 Sodium 141 Potassium 4.1 Chloride 108 Carbon Dioxide 21.5 Anion Gap 12 BUN 26 H Creatinine 1.01 Estim Creat Clear Calc 34.91 L Est GFR (MDRD) Non-Af 55 L BUN/Creatinine Ratio 26.1 H Glucose 139 H Calcium 8.4 Urine Color Yellow Urine Clarity Clear Urine pH 6.0 Ur Specific [place] 1.025 Urine Protein 30 H Urine Glucose (UA) Normal Urine Ketones Negative Urine Occult Blood Negative Urine Nitrite Negative Urine Bilirubin Negative Urine Urobilinogen Normal Ur Leukocyte Esterase 25 H Urine RBC 0 SEEN Urine WBC 0-5 SEEN Ur Squamous Epith Cells 5-10 SEEN Urine Bacteria 0 SEEN Urine Mucus 0 SEEN Discharge Plan Triage Chief Complaint: Nausea/Vomiting/Diarrhea ED Provider: Monserrat Noble Dx/Rx/DC Orders Clinical Impression: Viral gastroenteritis Instructions: ED Diet Vomiting Diarrhea, ED Gastroenteritis, Viral (Adult) Prescriptions: New ondansetron 4 mg tablet,disintegrating 4 mg PO Q8H PRN PRN (Reason: Nausea) Qty: 10 0RF No Action sertraline 50 mg tablet 50 mg PO DAILY Eliquis 2.5 mg tablet 2.5 mg PO Q12H omeprazole 20 mg capsule,delayed release(DR/EC) 20 mg PO DAILY Patient Comments: STOMACH MEDICINE, ACID REFLUX melatonin 10 mg tablet 10 mg PO QHS losartan 50 mg Tablet 50 mg PO BID clopidogrel 75 mg tablet 75 mg PO DAILY amlodipine 5 mg tablet 5 mg PO DAILY levothyroxine 112 mcg tablet 112 mcg PO DAILY ezetimibe 10 mg tablet 10 mg PO DAILY trazodone 50 mg Tablet 50 mg PO QHS 30 Days Qty: 30 0RF acetaminophen 500 mg Tablet 1,000 mg PO Q8 Qty: 0 0RF Artificial Tears([id number]) 1-0.2-0.2 % Drops 2 drp EACH EYE Q1H PRN (Reason: DRY EYES) Qty: 0 0RF Deep Sea Nasal 0.65 % Aerosol,[place] 2 spray NASAL TID PRN PRN (Reason: NASAL DRYNESS) Qty: 0 0RF pravastatin 80 mg Tablet 80 mg PO QHS Qty: 0 0RF guaifenesin [Mucus Relief ER] 1,200 mg Tablet Extended Release 12hr 1,200 mg PO BID Qty: 10 0RF doxycycline monohydrate 100 mg capsule 100 mg PO BID Qty: 10 0RF oxycodone 5 mg tablet 5 mg PO Q6H PRN (Reason: pain (scale score 7-10)) 3 Days Qty: 12 0RF hydroxyzine HCl 50 mg tablet 50 mg PO QHS PRN PRN (Reason: anxiety) ondansetron 4 mg tablet,disintegrating 4 mg PO Q6H PRN (Reason: nausea and vomiting) Qty: 10 0RF (DME) Handicap placard See Rx Instructions .Route .MEDSUPPLY Qty: 1 0RF Rx Instructions: Lifetime nitroglycerin 0.4 mg tablet, sublingual 0.4 mg SUBLINGUAL Q5M PRN (Reason: Chest Pain) Qty: 25 1RF amiodarone 200 mg tablet 200 mg PO DAILY Primary Care Provider: Kenji Osei Referrals: Kenji Osei MD [Primary Care Provider] - 2 Days Print Language: Amharic Disposition Disposition: Home, Self Care
[2024-04-28] MEDS: Ondansetron 4 MG/2 ML Vial IV (17:18)
[2024-04-28] MEDS: 0.9% Normal Saline (1000mL) 1,000 ML 999 ML IV (17:18)
[2024-04-28 17:37] LABS: Absolute Lymphocyte Count 0.33 X10^3/uL (0.83-4.51); Absolute Neutrophil Count 15.7 X10^3/uL (2.0-7.7); Basophil# 0.05 X10^3/uL; Basophil% 0.3 % (0-1); Eosinophil# 0.09 X10^3/uL; Eosinophils% 0.5 % (0-5); Hemoglobin 12.5 g/dL (12.0-15.0); Lymphocyte # 0.33 X10^3/ul (0.83-4.51); Lymphocyte % 1.9 % (19-41); Mean Corp Hgb Conc 31.3 g/dL (32-36); Mean Corpuscular Hgb 28.3 pg (27.0-32.0); Mean Corpuscular Volume 90.7 fL (81-99); Mean Platelet Vol. 10.2 fl (6.2-12.0); Monocyte# 1.34 X10^3/uL; Monocyte% 7.6 % (0-10); NRBC Flagged by Analyzer 0 % (0-5); Neutrophil # 15.67 X10^3/uL (2.7-7.7); Neutrophil % 89.2 % (47-70); POSITIVE DIFFERENTIAL YES; Platelet Count 278 K/mm3 (150-450); RBC Distribution Width CV 17.1 % (11.6-14.6); RBC Distribution Width SD 57.1 fl (35.1-43.9); Red Blood Count 4.41 M/mm3 (4.2-5.4); White Blood Count 17.6 K/mm3 (4.4-11.0)
[2024-04-28 17:58] LABS: Anion Gap 12 (5-15); BUN 26 mg/dL (4-19); BUN/Creat Ratio 26.1 RATIO (10-20); Calcium,Total 8.4 mg/dL (7.6-11.0); Carbon Dioxide 21.5 mmol/L (21.0-32.0); Chloride 108 mmol/L (98-108); Creatinine, Serum 1.01 mg/dL (0.70-1.20); EST Glomerular Filtration Rate 55 (>60); Estimated Creatinine Clearance 34.91 ml/min (50-250); Glucose 139 mg/dL (70-99); Potassium 4.1 mmol/L (3.3-5.1); Sodium Level 141 mmol/L (133-145)
[2024-04-28 18:15] LABS: Bacteria 0 SEEN /hpf (None Seen); Mucous, Urine 0 SEEN /hpf (<or=2+)
[2024-04-28 18:24] LABS: Color, Urine Yellow (Yellow); Glucose, Dipstick Normal (Normal); Ketone-Dipstick Negative (Negative); Leukocyte Esterase-Dipstick 25 /ul (Negative); Nitrite-Dipstick Negative (Negative); Occult Blood-Urine Negative /ul (Negative); Protein-Dipstick 30 mg/dl (Negative); Specific Gravity, Urine 1.025 (1.002-1.030); Urine Bilirubin Dipstick Negative (Negative); Urine Clarity Clear (Clear); Urine Urobilinogen Normal (Normal)
[2024-04-28 18:46] VITALS: BP 135/60; PULSE 66; RESP 12; O2SAT 99
[2024-04-28 18:48] LABS: Red Blood Cells-Urine 0 SEEN /hpf (0-5); Squamous Epithelial Cells - UA 5-10 SEEN /hpf (5-10); White Blood Cells 0-5 SEEN /hpf (0-5)
[2024-04-28 20:00] VITALS: BP 132/66; PULSE 65; RESP 16; O2SAT 99
[2024-04-28 20:05] VITALS: BP 132/66; PULSE 65; RESP 16; TEMP 36.6; O2SAT 99
== END 2024-04-28 20:05 | disposition home or self-care (01) ==
PROVIDERS: Emergency Provider Emergency Medicine; PCP Internal Medicine; Visit Provider Emergency Medicine
DX: A08.4 Viral intestinal infection, unspecified (principal); N18.9 Chronic kidney disease, unspecified; I12.9 Hypertensive chronic kidney disease with stage 1 through stage 4 chronic kidney disease, or unspecified chronic kidney disease; I25.10 Atherosclerotic heart disease of native coronary artery without angina pectoris; I25.2 Old myocardial infarction; Z95.5 Presence of coronary angioplasty implant and graft
CPT/HCPCS: 80048; 81001; 85025; 87493; 96361; 96374; 96376; 99283; A4216; J2405

== ENCOUNTER → 2024-05-14 | Outpatient (CLI) | payer MEDICARE, OTHER, SELFPAY ==
--- NOTE | 2024-05-14 13:15 | MRI_ITS ---
EXAM: MRI lumbar spine without contrast CLINICAL HISTORY: Back pain COMPARISON: MRI lumbar spine 06/28/2023 and lumbar spine radiograph 04/07/2024 TECHNIQUE: Multiplanar multisequence MRI of the lumbar spine without contrast. FINDINGS: Lumbar lordosis is maintained. Mild compression deformity L4 vertebral body, with interval postoperative changes of kyphoplasty. There is approximately 20% loss of disc height and mild retropulsion of the superior posterior L4 endplate. Interval development of mild-moderate T11 compression deformity with approximately 35% loss of disc height. No significant retropulsion. There is increased T2/stir signal within the vertebral body, suggesting an acute-subacute compression deformity. There is also a new L2 inferior endplate compression deformity with mild retropulsion of the posterior inferior aspect of L2 vertebral body. Similar to the T11 vertebral body, there is increased T2/stir signal, also likely related to an acute-subacute compression fracture. Remainder of the vertebral body heights are maintained. Disc spaces are within normal limits. The bone marrow signal is unremarkable. There is no abnormal bone STIR signal. The included distal thoracic cord is normal in caliber and signal. The conus medullaris terminates at L1 level. There is no clumping of the nerve roots. T12/L1: No significant canal stenosis or neural foraminal narrowing. L1/2: No significant canal stenosis or neural foraminal narrowing.. L2/3: Small circumferential disc bulge and mild facet degenerative changes with mild flattening of the ventral thecal sac. No significant canal stenosis or neural foraminal narrowing.. L3/4: Circumferential disc bulge, facet degenerative change and ligamentum flavum hypertrophy with moderate canal stenosis. Neural foramina are patent.. L4/5: Circumferential disc bulge, ligamentum flavum hypertrophy facet degenerative change with mild canal stenosis. No significant neural foraminal narrowing.. L5/S1: Small circumferential disc bulge and facet degenerative changes without significant canal stenosis or neural foraminal narrowing.. Diffuse fatty atrophy of the paraspinal musculature. Multiple bilateral simple renal cysts. MRI/Spine Lumbar (Routine) IMPRESSION: 1. Interval development acute-subacute compression deformities of T11 and L2 ve rtebral bodies as described above. There is retropulsion, more prominent at T11. 2. Stable compression deformity L4 vertebral body with postoperative changes of kyphoplasty. 3. Multilevel degenerative changes without high-grade canal stenosis or neural foraminal narrowing. Reading Location: [facility]
== END | disposition home or self-care (01) ==
LOC: MRI 12:48
PROVIDERS: PCP Internal Medicine; Referring Provider Anesthesiology; Visit Provider Anesthesiology
DX: S32.009A Unspecified fracture of unspecified lumbar vertebra, initial encounter for closed fracture (principal)
CPT/HCPCS: 72148

== ENCOUNTER → 2024-05-22 | Outpatient (CLI) | payer MEDICARE, OTHER, SELFPAY ==
--- NOTE | 2024-05-22 14:22 | RAD_ITS ---
PROCEDURE: LUMBAR SPINE 2 OR 3 VIEWS 05/22/2024 REASON FOR EXAM: LUMBAR SPONDYLOSIS, CHECK FOR NEW FX OF LUMBAR VERTEBRAE TECHNIQUE: 3 view(s) of the lumbar spine COMPARISON: MRI 05/14/2024 and films 04/07/2024 FINDINGS: Comparing with MRI compression fracture deformities of T11 and inferior endplate of L2 are not significantly changed. Since the film of 04/07/2024 there is vertebral body height loss at T11 approximately 50 % loss of height similar in appearance to the MRI 05/14/2024. There is now radiographically appreciated superior endplate compression fracture deformity at T12 which can be seen faintly suggested on the MRI. No malalignment. L4 compression fracture and vertebroplasty not significantly changed. Aortoiliac atherosclerotic calcifications. Partially imaged left hip replacement. RAD/Lumbar Spine 2 or 3 Views IMPRESSION: Comparing with MRI compression fracture deformities of T11 and inferior endplat e of L2 are not significantly changed. Since the film of 04/07/2024 there is vertebral body height loss at T11 approxi mately 50 % loss of height similar in appearance to the MRI 05/14/2024. There is now radiographically appreciated superior endplate compression fractur e deformity at T12 which can be seen faintly suggested on the MRI. No malalignment. L4 compression fracture and vertebroplasty not significantly changed. Reading Location: [id number]
== END | disposition home or self-care (01) ==
LOC: RAD 14:21
PROVIDERS: PCP Internal Medicine; Referring Provider Anesthesiology; Visit Provider Anesthesiology
DX: M47.816 Spondylosis without myelopathy or radiculopathy, lumbar region (principal)
CPT/HCPCS: 72100

== ENCOUNTER 2024-05-25 22:06 | Emergency (ER) | payer MEDICARE, OTHER, SELFPAY ==
[2024-05-25 22:06] VITALS: BP 178/92; PULSE 55; RESP 18; TEMP 36.6; O2SAT 97; BMI 21.9
--- NOTE | 2024-05-25 22:18 | CT_ITS ---
PROCEDURE: BRAIN/HEAD WITHOUT CONTRAST 05/25/2024 REASON FOR EXAM: TRAUMA, pain TECHNIQUE: Multiple contiguous axial images of the brain were obtained without the administration of intravenous contrast. Two-dimensional coronal and sagittal reformatted images were reconstructed. Low-dose imaging technique was utilized. COMPARISON: None FINDINGS: No evidence of acute intracranial hemorrhage, midline shift or mass effect. No definite CT evidence of acute territorial cortical infarction. No hydrocephalus. Mild generalized cerebral atrophy and chronic small-vessel ischemic changes. No depressed calvarial fracture. Mild left maxillary mucosal thickening. Small amount of fluid in the bilateral mastoid air cells. Cerebrovascular calcifications. CT/Brain/Head without Contrast IMPRESSION: No acute intracranial abnormality. Reading Location: [facility]
--- NOTE | 2024-05-25 22:19 | EX.ED.GENINJ ---
HPI History of Present Illness Chief Complaint: Head Injury Informant: patient and family Narrative Narrative: 83-year-old female states lid of a very large recycle bin came down and hit her in the head unexpectedly while she was trying to throw some bottles in it. She was dazed but did not lose consciousness. It hit her in the forehead. She did not fall and denies any other injury. She states she has some discomfort but does not think she has a headache, vision changes, nausea, vomiting, or focal neurologic symptom. She denies any neck pain, she has pre-existing pain in her low back that is no different, due to some vertebral fractures and she is due to have kyphoplasty for next week. She takes clopidogrel because of a history of heart stents and Eliquis because of A-fib/flutter. [facility] Medical History Tricuspid valve regurgitation Grade II diastolic dysfunction Left ventricular systolic dysfunction (LVSD) without heart failure Coronary artery disease Preoperative cardiovascular examination Closed fracture of left hip Fall Chronic back pain CKD (chronic kidney disease) Anticoagulant long-term use CAD (coronary artery disease) Paroxysmal atrial flutter Bleeding tendency Post-menopausal High cholesterol History of stress test Osteoporosis GERD (gastroesophageal reflux disease) Hypertension Non-rheumatic mitral regurgitation Tachycardia Bladder prolapse Nonrheumatic mitral valve disorder Abnormal stress test Pure hypercholesterolemia Essential hypertension Atherosclerotic heart disease of [place] coronary artery without angina pectoris History of coronary artery stent placement (~09/25/13) Old myocardial infarction halfway use of drug Ischemic cardiomyopathy Abnormal ECG Abnormal serum enzyme level NSTEMI (non-ST elevation myocardial infarction) Angina pectoris Chest pain Hypothyroidism Home Medications ?Medication ?Instructions ?Recorded ?Last Taken ?Type Handicap placard #1 ea 11/19/20 Unknown Rx sertraline 50 mg tablet 50 mg PO DAILY ANXIETY 05/06/21 04/03/24 History nitroglycerin 0.4 mg sublingual 0.4 mg sublingual Q5M PRN Chest 02/25/22 04/20/22 04:30 Rx tablet Pain #25 tabs apixaban 2.5 mg tablet (Eliquis) 2.5 mg PO Q12H blood thinner 04/26/22 04/03/24 History melatonin 10 mg tablet 10 mg PO QHS SLEEP 04/26/22 04/02/24 History omeprazole 20 mg capsule,delayed 20 mg PO DAILY GERD 04/26/22 04/03/24 History release amiodarone 200 mg tablet 200 mg PO DAILY dose reduced at 05/04/22 04/03/24 History [facility]. clopidogrel 75 mg tablet 75 mg PO DAILY prevent clots 06/13/22 04/03/24 History losartan 50 mg tablet 50 mg PO BID BP 06/13/22 04/03/24 History amlodipine 5 mg tablet 5 mg PO DAILY BP 06/30/23 04/03/24 History ezetimibe 10 mg tablet 10 mg PO DAILY cholesterol 06/30/23 04/03/24 History levothyroxine 112 mcg tablet 112 mcg PO DAILY thyroid 06/30/23 04/03/24 History acetaminophen 500 mg tablet 1,000 mg (2 x 500 mg) PO Q8 #0 tabs 07/26/23 04/03/24 Rx peg [id number] 1 2 drp EACH EYE Q1H PRN DRY EYES #0 07/26/23 04/03/24 Rx %-0.2 %-0.2 % eye drops mL (Artificial Tears ([id number])) sodium chloride 0.65 % nasal spray 2 spray NASAL TID PRN PRN NASAL 07/26/23 Unknown Rx aerosol (Deep Sea Nasal) DRYNESS #0 mL trazodone 50 mg tablet 50 mg PO QHS 30 days #30 tabs 07/26/23 04/02/24 Rx hydroxyzine HCl 50 mg tablet 50 mg PO QHS PRN PRN anxiety 03/20/24 04/02/24 History ondansetron 4 mg disintegrating 4 mg PO Q6H PRN nausea and 03/20/24 Unknown Rx tablet vomiting #10 tabs oxycodone 5 mg tablet 5 mg PO Q6H PRN pain (scale score 04/07/24 Unknown Rx 7-10) 3 days #12 tabs pravastatin 80 mg tablet 80 mg PO QHS #0 tabs 04/07/24 Unknown Rx Allergy/AdvReac Type Severity Reaction Status Date / Time lisinopril AdvReac Intermediate Cough Verified 05/25/24 22:08 Family History Mother Breast cancer Myocardial infarction CAD (coronary artery disease) Diabetes Father Myocardial infarction CAD (coronary artery disease) Brother Myocardial infarction Diabetes CAD (coronary artery disease) Sister Breast cancer Hypertension Surgical History History of left hip hemiarthroplasty History of heart artery stent H/O cardiac catheterization Presence of coronary angioplasty implant and graft (~09/25/13) Social History household members: none Smoking Status: Never smoker alcohol intake: never substance use type: does not use caffeine: No what type of physical activity do you participate in: walking frequency: 3-4 times per week duration: 45-60 minutes/day seatbelt use: always do you feel safe at home: Yes ROS ROS ED Constitutional Constitutional ED: Denies chills or fever(s) Eyes Eyes: Denies change in vision or diplopia ENT ENT ED: Denies rhinorrhea or sore throat Cardiovascular Cardiovascular: Denies chest pain or palpitations Respiratory/Chest Respiratory/Chest: Denies cough or dyspnea Gastrointestinal Gastrointestinal: Denies abdominal pain, diarrhea, nausea or vomiting Genitourinary Genitourinary ED: Denies dysuria or hematuria Musculoskeletal Musculoskeletal: Reports back pain; Denies neck pain Integumentary Denies abscess or rash Neurologic Neurologic: Reports headache(s); Denies paresthesias or weakness Psychiatric Psychiatric: Denies suicidal thoughts EXAM Physical Exam Const Vital Signs: 05/25/24 22:06 05/25/24 22:15 Temperature 97.8 F Temperature Source Temporal Pulse Rate 55 L Respiratory Rate 18 Respiratory Effort Normal Blood Pressure 178/92 H Blood Pressure Mean 120 Pulse Ox 97 Oxygen Delivery Method Room Air Positive well nourished and well developed General Appearance ED: well developed and NAD HEENT Reports moist mucous membranes HEENT Narrative: Left upper forehead contusion and tenderness, no boggy hematoma, no crepitance or depression, no laceration or bleeding. No Garces sign. No raccoon eyes. No CSF otorhinorrhea or hemotympanum. normocephalic, trauma and tenderness Eyes PERRL and EOMs intact bilaterally Neck full ROM and supple Resp normal respiratory effort and clear to auscultation bilaterally Cardio regular rate, regular rhythm and no murmurs GI non-tender and non-distended Auscultation: normoactive bowel sounds Palpation: soft Back/Spine General Back: other FROM Thoracic Spine / Upper Back: Negative for thoracic spinal tenderness Extremity normal to inspection General Extremety ED: Negative for edema, pulses abnormal or tenderness General Extremity: Negative for edema or pulses abnormal Neuro oriented x3, CN's II-XII intact bilaterally and no sensory deficits noted Sensorium / Orientation: awake and alert Motor Exam: strength 5/5 throughout Skin no rashes or lesions noted and no wounds MDM MDM MDM Narrative Medical decision making narrative: CT of the head was obtained in order to rule out intracranial injury, I reviewed the images and report which I agree with, negative for anything acute. Patient was given some Tylenol and an ice pack, she is doing well. Reassured and stable for discharge home I see no signs of other objective injury. Radiography Diagnostic Testing: Clinical Impression(s) from Imaging Studies Brain CT 05/25/24 22:18 IMPRESSION: No acute intracranial abnormality. [facility] Triage Chief Complaint: Head Injury ED Provider: Ervin Gallegos Dx/Rx/DC Orders Clinical Impression: Closed head injury without concussion Instructions: ED Facial Contusion Prescriptions: No Action sertraline 50 mg tablet 50 mg PO DAILY Eliquis 2.5 mg tablet 2.5 mg PO Q12H omeprazole 20 mg capsule,delayed release(DR/EC) 20 mg PO DAILY Patient Comments: STOMACH MEDICINE, ACID REFLUX melatonin 10 mg tablet 10 mg PO QHS losartan 50 mg Tablet 50 mg PO BID clopidogrel 75 mg tablet 75 mg PO DAILY amlodipine 5 mg tablet 5 mg PO DAILY levothyroxine 112 mcg tablet 112 mcg PO DAILY ezetimibe 10 mg tablet 10 mg PO DAILY trazodone 50 mg Tablet 50 mg PO QHS 30 Days Qty: 30 0RF acetaminophen 500 mg Tablet 1,000 mg PO Q8 Qty: 0 0RF Artificial Tears([id number]) 1-0.2-0.2 % Drops 2 drp EACH EYE Q1H PRN (Reason: DRY EYES) Qty: 0 0RF Deep Sea Nasal 0.65 % Aerosol,[place] 2 spray NASAL TID PRN PRN (Reason: NASAL DRYNESS) Qty: 0 0RF pravastatin 80 mg Tablet 80 mg PO QHS Qty: 0 0RF oxycodone 5 mg tablet 5 mg PO Q6H PRN (Reason: pain (scale score 7-10)) 3 Days Qty: 12 0RF hydroxyzine HCl 50 mg tablet 50 mg PO QHS PRN PRN (Reason: anxiety) ondansetron 4 mg tablet,disintegrating 4 mg PO Q6H PRN (Reason: nausea and vomiting) Qty: 10 0RF (DME) Handicap placard See Rx Instructions .Route .MEDSUPPLY Qty: 1 0RF Rx Instructions: Lifetime nitroglycerin 0.4 mg tablet, sublingual 0.4 mg SUBLINGUAL Q5M PRN (Reason: Chest Pain) Qty: 25 1RF amiodarone 200 mg tablet 200 mg PO DAILY Primary Care Provider: Kenji Osei Referrals: Kenji Osei MD [Primary Care Provider] - As Needed Print Language: Mauritanian Disposition Disposition: Home, Self Care
[2024-05-25] MEDS: Acetaminophen 500 MG Tablet 1000 MG PO (22:35)
[2024-05-25 23:25] VITALS: BP 165/75; PULSE 61; RESP 16; TEMP 36.6; O2SAT 96
== END 2024-05-25 23:26 | disposition home or self-care (01) ==
PROVIDERS: Emergency Provider Emergency Medicine; PCP Internal Medicine; Visit Provider Emergency Medicine
DX: S09.90XA Unspecified injury of head, initial encounter (principal); I12.9 Hypertensive chronic kidney disease with stage 1 through stage 4 chronic kidney disease, or unspecified chronic kidney disease; N18.9 Chronic kidney disease, unspecified; I25.10 Atherosclerotic heart disease of native coronary artery without angina pectoris; E78.00 Pure hypercholesterolemia, unspecified; I25.5 Ischemic cardiomyopathy; I25.2 Old myocardial infarction; Z79.899 Other long term (current) drug therapy; Z79.01 Long term (current) use of anticoagulants; Z79.02 Long term (current) use of antithrombotics/antiplatelets; X58.XXXA Exposure to other specified factors, initial encounter; Z95.5 Presence of coronary angioplasty implant and graft
CPT/HCPCS: 70450; 99282

== ENCOUNTER → 2024-07-04 | Outpatient (CLI) | payer MEDICARE, OTHER, SELFPAY ==
--- NOTE | 2024-07-04 17:38 | CT_ITS ---
EXAM: CT Right Lower Extremity Without Intravenous Contrast, Hip CLINICAL INDICATION: PAIN TECHNIQUE: Axial computed tomography images of the right hip without intravenous contrast. This CT exam was performed using one or more of the following dose reduction techniques: automated exposure control, adjustment of the mA and/or kV according to patient size, and/or use of iterative reconstruction technique. COMPARISON: No relevant prior studies available. FINDINGS: BONES/JOINTS: Cortical irregularity of the greater trochanter and lesser trochanter, best visualized on coronal image 51 concerning for nondisplaced fractures. No dislocation. SOFT TISSUES: Unremarkable. CT/Extremity Lower without Contra IMPRESSION: Cortical irregularity of the greater trochanter and lesser trochanter, best vis ualized on coronal image 51 concerning for nondisplaced fractures. Reading Location: [id number]
== END | disposition home or self-care (01) ==
LOC: CT 17:23
PROVIDERS: PCP Internal Medicine; Referring Provider Specialist; Visit Provider Specialist
DX: M25.551 Pain in right hip (principal)
CPT/HCPCS: 73700

== ENCOUNTER 2024-07-07 19:12 | Emergency (ER) | payer MEDICARE, OTHER, SELFPAY ==
[2024-07-07 19:13] VITALS: BP 159/52; PULSE 60; RESP 16; TEMP 36.6; O2SAT 94; BMI 21.6
--- NOTE | 2024-07-07 19:53 | ED.VIS.BACK ---
HPI History of Present Illness Chief Complaint: Back Onset/Context/Timing Onset: Days Context: Gradual Onset Injury: fall Timing: Continuous Quality: Sharp Location: Lumbar Worsened by: improves with Movement Relieved by: Nothing Associated Symptoms Associated Symptoms: Negative for Numbness, Tingling, Radiation to Right Leg, Radiation to Left Leg, Fever, Abdominal Pain, Dysuria, Unable to Ambulate, Unable to Transfer, Urinary Retention, Urinary Incontinence, Constipation or Fecal Incontinence Narrative Narrative: Patient presents with low back pain that has been getting worse over the past 5 days. Patient states it is gradually getting worse. Patient states she fell recently. Patient states she saw her orthopedic physician who did an MRI of her hip which was negative. Patient complains of worsening back pain. Patient states she tried to see her back specialist 2 days ago but he is not in on or Fridays. Patient denies any radiation of the pain. Patient states that her pain is sharp and constant. Patient states it is worse with movement such as standing and twisting. Patient states nothing makes it better. PFSH [facility] Medical History Back fracture Back fracture Current use of retirement anticoagulation Tricuspid valve regurgitation Grade II diastolic dysfunction Left ventricular systolic dysfunction (LVSD) without heart failure Coronary artery disease Preoperative cardiovascular examination Bleeding tendency Post-menopausal High cholesterol History of stress test Osteoporosis GERD (gastroesophageal reflux disease) Hypertension Closed fracture of left hip Fall Chronic back pain CKD (chronic kidney disease) Anticoagulant long-term use CAD (coronary artery disease) Non-rheumatic mitral regurgitation Paroxysmal atrial flutter Tachycardia Bladder prolapse Nonrheumatic mitral valve disorder Abnormal stress test Pure hypercholesterolemia Essential hypertension Atherosclerotic heart disease of [place] coronary artery without angina pectoris History of coronary artery stent placement (~09/25/13) Old myocardial infarction snf use of drug Ischemic cardiomyopathy Abnormal ECG Abnormal serum enzyme level NSTEMI (non-ST elevation myocardial infarction) Angina pectoris Chest pain Hypothyroidism Home Medications ?Medication ?Instructions ?Recorded ?Last Taken ?Type Handicap placard #1 ea 11/19/20 Unknown Rx sertraline 50 mg tablet 50 mg PO DAILY ANXIETY 05/06/21 04/03/24 History nitroglycerin 0.4 mg sublingual 0.4 mg sublingual Q5M PRN Chest 02/25/22 04/20/22 04:30 Rx tablet Pain #25 tabs apixaban 2.5 mg tablet (Eliquis) 2.5 mg PO Q12H blood thinner 04/26/22 04/03/24 History melatonin 10 mg tablet 10 mg PO QHS SLEEP 04/26/22 04/02/24 History omeprazole 20 mg capsule,delayed 20 mg PO DAILY GERD 04/26/22 04/03/24 History release amiodarone 200 mg tablet 200 mg PO DAILY dose reduced at 05/04/22 04/03/24 History [facility]. losartan 50 mg tablet 50 mg PO BID BP 06/13/22 04/03/24 History amlodipine 5 mg tablet 5 mg PO DAILY BP 06/30/23 04/03/24 History ezetimibe 10 mg tablet 10 mg PO DAILY cholesterol 06/30/23 04/03/24 History levothyroxine 112 mcg tablet 112 mcg PO DAILY thyroid 06/30/23 04/03/24 History acetaminophen 500 mg tablet 1,000 mg (2 x 500 mg) PO Q8 #0 tabs 07/26/23 04/03/24 Rx peg [id number] 1 2 drp EACH EYE Q1H PRN DRY EYES #0 07/26/23 04/03/24 Rx %-0.2 %-0.2 % eye drops mL (Artificial Tears ([id number])) sodium chloride 0.65 % nasal spray 2 spray NASAL TID PRN PRN NASAL 07/26/23 Unknown Rx aerosol (Deep Sea Nasal) DRYNESS #0 mL trazodone 50 mg tablet 50 mg PO QHS 30 days #30 tabs 07/26/23 04/02/24 Rx hydroxyzine HCl 50 mg tablet 50 mg PO QHS PRN PRN anxiety 03/20/24 04/02/24 History ondansetron 4 mg disintegrating 4 mg PO Q6H PRN nausea and 03/20/24 Unknown Rx tablet vomiting #10 tabs aspirin 81 mg tablet,delayed 81 mg PO DAILY 07/07/24 Unknown History release (Adult Low Dose Aspirin) Allergy/AdvReac Type Severity Reaction Status Date / Time lisinopril AdvReac Intermediate Cough Verified 07/07/24 19:17 Family History Mother Breast cancer Myocardial infarction CAD (coronary artery disease) Diabetes Father Myocardial infarction CAD (coronary artery disease) Brother Myocardial infarction Diabetes CAD (coronary artery disease) Sister Breast cancer Hypertension Surgical History History of left hip hemiarthroplasty History of heart artery stent H/O cardiac catheterization Presence of coronary angioplasty implant and graft (~09/25/13) Social History household members: none Smoking Status: Never smoker alcohol intake: never substance use type: does not use caffeine: No what type of physical activity do you participate in: walking frequency: 3-4 times per week duration: 45-60 minutes/day seatbelt use: always do you feel safe at home: Yes ROS ROS ED Constitutional Constitutional ED: Denies chills or fever(s) Eyes Eyes: Denies blurry vision or change in vision ENT ENT ED: Denies rhinorrhea or sore throat Cardiovascular Cardiovascular: Denies chest pain or palpitations Respiratory/Chest Respiratory/Chest: Denies cough or dyspnea Gastrointestinal Gastrointestinal: Denies nausea or vomiting Genitourinary Genitourinary ED: Denies dysuria or hematuria Musculoskeletal Musculoskeletal: Reports back pain; Denies neck pain Integumentary Denies abscess or rash Neurologic Neurologic: Denies headache(s) or weakness Allergic/Immunologic Allergic/Immunologic ED: Denies mouth swelling or urticaria EXAM Physical Exam Const Vital Signs: 07/07/24 19:13 Temperature 97.8 F Temperature Source Temporal Pulse Rate 60 Respiratory Rate 16 Blood Pressure 159/52 H Blood Pressure Mean 87 Pulse Ox 94 Oxygen Delivery Method Room Air Positive well nourished and well developed General Appearance ED: well developed and NAD HEENT Reports moist mucous membranes Neck supple and no JVD Resp clear to auscultation bilaterally GI soft to palpation, non-tender and non-distended Back/Spine Back/Spine Narrative: There is tenderness over the right lower lumbar paraspinal muscles. There is mild midline tenderness. There is no bony crepitance or step-off. There is no edema or ecchymosis. Range of motion is limited in all motions of the lumbar spine secondary to pain. Straight leg raises were negative bilaterally. Strength is 5/5 bilaterally in the lower extremities. There are no sensory deficits noted. Deep tendon reflexes are 2/4 bilaterally in the lower extremities. Lumbar Spine / Lower Back: ROM limited and straight leg raise negative bilaterally Extremity normal to inspection General Extremety ED: Negative for edema or tenderness General Extremity: Negative for edema Neuro oriented x3 and no sensory deficits noted Sensorium / Orientation: alert Motor Exam: strength 5/5 throughout Deep Tendon Reflexes: Rt Patellar (L4): 2+, Lt Patellar (L4): 2+, Rt Ankle (S1): 2+ and Lt Ankle (S1): 2+ Deep Tendon Reflexes Back: Rt Patellar (L4): 2+, Lt Patellar (L4): 2+, Rt Ankle (S1): 2+ and Lt Ankle (S1): 2+ Psych mental status grossly normal MDM MDM MDM Narrative Medical decision making narrative: Differential diagnosis includes lumbar compression fracture, spondylolisthesis, lumbosacral strain, and contusion. X-rays of the lumbar spine will be obtained to assess for compression fracture and spondylolisthesis. Radiography X-Ray: LS SPine, Read by ED Physician, Read by Radiologist, Normal Bony Alignment and DJD Diagnostic Testing: Clinical Impression(s) from Imaging Studies Lumbar Spine X-Ray 07/07/24 19:55 IMPRESSION: See above Reading [facility] X-rays of the lumbar spine were obtained. There are 3 views. On my independent interpretation, there is no acute fracture noted. There are old compression fractures and vertebroplasty cement noted. There are degenerative changes noted. Radiologist also interpreted the x-rays and agrees. Treatment and Re-Evaluation Narrative: Patient was given an injection of fentanyl here due to her allergy to morphine. Patient was advised of her findings. Patient was feeling better on reevaluation. Patient was given a prescription for short course of tramadol. Patient was instructed to follow-up with her primary care physician in 5 to 7 days. Patient was instructed to follow-up with her back specialist in 3 to 5 days. Patient understood and was agreeable with the plan. All questions were answered. Discharge Plan Triage Chief Complaint: Back ED Provider: Omkar Lomeli Dx/Rx/DC Orders Clinical Impression: Acute exacerbation of chronic low back pain, Essential hypertension Instructions: ED Back and Neck Pain, General Prescriptions: No Action sertraline 50 mg tablet 50 mg PO DAILY Eliquis 2.5 mg tablet 2.5 mg PO Q12H omeprazole 20 mg capsule,delayed release(DR/EC) 20 mg PO DAILY Patient Comments: STOMACH MEDICINE, ACID REFLUX melatonin 10 mg tablet 10 mg PO QHS losartan 50 mg Tablet 50 mg PO BID amlodipine 5 mg tablet 5 mg PO DAILY levothyroxine 112 mcg tablet 112 mcg PO DAILY ezetimibe 10 mg tablet 10 mg PO DAILY trazodone 50 mg Tablet 50 mg PO QHS 30 Days Qty: 30 0RF acetaminophen 500 mg Tablet 1,000 mg PO Q8 Qty: 0 0RF Artificial Tears(ra-[id number]-pcfv) 1-0.2-0.2 % Drops 2 drp EACH EYE Q1H PRN (Reason: DRY EYES) Qty: 0 0RF Deep Sea Nasal 0.65 % Aerosol,[place] 2 spray NASAL TID PRN PRN (Reason: NASAL DRYNESS) Qty: 0 0RF aspirin [Adult Low Dose Aspirin] 81 mg tablet,delayed release (DR/EC) 81 mg PO DAILY hydroxyzine HCl 50 mg tablet 50 mg PO QHS PRN PRN (Reason: anxiety) ondansetron 4 mg tablet,disintegrating 4 mg PO Q6H PRN (Reason: nausea and vomiting) Qty: 10 0RF (DME) Handicap placard See Rx Instructions .Route .MEDSUPPLY Qty: 1 0RF Rx Instructions: Lifetime nitroglycerin 0.4 mg tablet, sublingual 0.4 mg SUBLINGUAL Q5M PRN (Reason: Chest Pain) Qty: 25 1RF amiodarone 200 mg tablet 200 mg PO DAILY Primary Care Provider: Kenji Osei Referrals: Reji Kennedy MD [Med Staff - Active Staff] - 3-5 Days Kenji Osei MD [Primary Care Provider] - 5-7 Days Print Language: Setswana Disposition Disposition: Home, Self Care
--- NOTE | 2024-07-07 19:55 | RAD_ITS ---
PROCEDURE: 07/07/2024 REASON FOR EXAM: INJURY/PAIN TECHNIQUE: 3 view(s) of the lumbar spine COMPARISON: MRI lumbar spine 05/14/2024 and lumbar spine radiograph 05/22/2024 FINDINGS: Mild levoscoliosis. Postoperative changes T12, L3 and L5 kyphoplasty, new since 05/22/2024. Multilevel compression deformities throughout the lumbar spine. Diffuse osteopenia. Moderate multilevel degenerative changes. No suspicious lytic or blastic lesion. Left hip arthroplasty. RAD/Lumbar Spine 2 or 3 Views IMPRESSION: See above Reading Location: [facility]
[2024-07-07] MEDS: fentaNYL 100 MCG/2 ML Ampul 50 MCG IM (20:02)
[2024-07-07 20:41] VITALS: BP 148/72; PULSE 60; RESP 16; TEMP 36.6; O2SAT 94
== END 2024-07-07 20:42 | disposition home or self-care (01) ==
PROVIDERS: Emergency Provider Emergency Medicine; PCP Internal Medicine; Referring Provider Emergency Medicine; Visit Provider Emergency Medicine
DX: M54.50 Low back pain, unspecified (principal); I13.0 Hypertensive heart and chronic kidney disease with heart failure and stage 1 through stage 4 chronic kidney disease, or unspecified chronic kidney disease; I50.32 Chronic diastolic (congestive) heart failure; I25.10 Atherosclerotic heart disease of native coronary artery without angina pectoris; N18.9 Chronic kidney disease, unspecified; G89.29 Other chronic pain; I25.5 Ischemic cardiomyopathy; I25.2 Old myocardial infarction; Z79.899 Other long term (current) drug therapy; Z79.01 Long term (current) use of anticoagulants; Z95.5 Presence of coronary angioplasty implant and graft
CPT/HCPCS: 72100; 96372; 99282

== ENCOUNTER 2024-07-14 05:30 | Emergency (ER) | payer MEDICARE, OTHER, SELFPAY ==
[2024-07-14 05:32] VITALS: BP 178/63; PULSE 66; RESP 18; TEMP 36.7; O2SAT 95; BMI 22.7
[2024-07-14 06:00] VITALS: BP 159/54; PULSE 64; RESP 18; O2SAT 93
[2024-07-14] MEDS: fentaNYL 100 MCG/2 ML Ampul 50 MCG IV (06:07)
[2024-07-14] MEDS: Lidocaine 5% Patch 1 PATCH TOPICAL (06:07)
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
[2024-07-14 06:56] VITALS: BP 168/56; PULSE 66; RESP 18; TEMP 36.7; O2SAT 94
== END 2024-07-14 07:00 | disposition home or self-care (01) ==
PROVIDERS: Emergency Provider Surgery; PCP Internal Medicine; Visit Provider Surgery
DX: M54.50 Low back pain, unspecified (principal); I13.0 Hypertensive heart and chronic kidney disease with heart failure and stage 1 through stage 4 chronic kidney disease, or unspecified chronic kidney disease; I50.32 Chronic diastolic (congestive) heart failure; N18.9 Chronic kidney disease, unspecified; G89.29 Other chronic pain; I25.10 Atherosclerotic heart disease of native coronary artery without angina pectoris; I25.2 Old myocardial infarction; Z79.899 Other long term (current) drug therapy; Z79.82 Long term (current) use of aspirin; Z79.01 Long term (current) use of anticoagulants; Z95.5 Presence of coronary angioplasty implant and graft
CPT/HCPCS: 96374; 96376; 99284; A4216

== ENCOUNTER 2024-07-19 21:00 | Emergency (ER) | payer MEDICARE, OTHER, SELFPAY ==
[2024-07-19 21:01] VITALS: BP 156/54; PULSE 55; RESP 16; TEMP 36.1; O2SAT 97
--- NOTE | 2024-07-19 21:35 | ED.VIS.BACK ---
HPI <Dr. Omkar Lomeli DO - Last Filed: 07/20/24 01:19> History of Present Illness Chief Complaint: Back Informant: patient and family Onset/Context/Timing Onset: Weeks Context: Gradual Onset Timing: Continuous Quality: Sharp Location: Lumbar Worsened by: improves with Nothing Relieved by: Nothing Associated Symptoms Associated Symptoms: Negative for Numbness, Tingling, Radiation to Right Leg, Radiation to Left Leg, Fever, Abdominal Pain, Dysuria, Unable to Ambulate, Unable to Transfer, Urinary Retention, Urinary Incontinence, Constipation or Fecal Incontinence Narrative Narrative: Patient presents with back pain and lower extremity swelling that has been getting worse over the past week. Patient states her pain management physician is on vacation and she has an appointment with him when he gets back on Tuesday. Patient denies any trauma or injury. Patient been taking her normal medications at home without any improvement. Patient states she has been having some increasing swelling of her lower legs. Patient denies any shortness of breath. Patient denies any chest pain. Patient denies any fevers or chills. [facility] <Dr. 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 Tricuspid valve regurgitation Grade II diastolic dysfunction Left ventricular systolic dysfunction (LVSD) without heart failure Coronary artery disease Preoperative cardiovascular examination Bleeding tendency Post-menopausal High cholesterol History of stress test Osteoporosis GERD (gastroesophageal reflux disease) Hypertension Closed fracture of left hip Fall Chronic back pain CKD (chronic kidney disease) Anticoagulant long-term use CAD (coronary artery disease) Non-rheumatic mitral regurgitation Paroxysmal atrial flutter Tachycardia Bladder prolapse Nonrheumatic mitral valve disorder Abnormal stress test Pure hypercholesterolemia Essential hypertension Atherosclerotic heart disease of [place] coronary artery without angina pectoris History of coronary artery stent placement (~09/25/13) Old myocardial infarction emt intermediate use of drug Ischemic cardiomyopathy Abnormal ECG Abnormal serum enzyme level NSTEMI (non-ST elevation myocardial infarction) Angina pectoris Chest pain Hypothyroidism Home Medications ?Medication ?Instructions ?Recorded ?Last Taken ?Type Handicap anthony #1 ea 11/19/20 Unknown Rx sertraline 50 mg tablet 50 mg PO DAILY ANXIETY 05/06/21 04/03/24 History nitroglycerin 0.4 mg sublingual 0.4 mg sublingual Q5M PRN Chest 02/25/22 04/20/22 04:30 Rx tablet Pain #25 tabs apixaban 2.5 mg tablet (Eliquis) 2.5 mg PO Q12H blood thinner 04/26/22 04/03/24 History melatonin 10 mg tablet 10 mg PO QHS SLEEP 04/26/22 04/02/24 History omeprazole 20 mg capsule,delayed 20 mg PO DAILY GERD 04/26/22 04/03/24 History release amiodarone 200 mg tablet 200 mg PO DAILY dose reduced at 05/04/22 04/03/24 History [facility]. losartan 50 mg tablet 50 mg PO BID BP 06/13/22 04/03/24 History amlodipine 5 mg tablet 5 mg PO DAILY BP 06/30/23 04/03/24 History ezetimibe 10 mg tablet 10 mg PO DAILY cholesterol 06/30/23 04/03/24 History levothyroxine 112 mcg tablet 112 mcg PO DAILY thyroid 06/30/23 04/03/24 History acetaminophen 500 mg tablet 1,000 mg (2 x 500 mg) PO Q8 #0 tabs 07/26/23 04/03/24 Rx peg [id number] 1 2 drp EACH EYE Q1H PRN DRY EYES #0 07/26/23 04/03/24 Rx %-0.2 %-0.2 % eye drops mL (Artificial Tears ([id number])) sodium chloride 0.65 % nasal spray 2 spray NASAL TID PRN PRN NASAL 07/26/23 Unknown Rx aerosol (Deep Sea Nasal) DRYNESS #0 mL trazodone 50 mg tablet 50 mg PO QHS 30 days #30 tabs 07/26/23 04/02/24 Rx ondansetron 4 mg disintegrating 4 mg PO Q6H PRN nausea and 03/20/24 Unknown Rx tablet vomiting #10 tabs aspirin 81 mg tablet,delayed 81 mg PO DAILY 07/07/24 Unknown History release (Adult Low Dose Aspirin) tramadol 50 mg tablet 50 mg PO Q4H PRN PRN Pain 3 days 07/07/24 Unknown Rx #20 tabs baclofen 5 mg tablet 5 mg PO TID PRN 07/14/24 Unknown History oxycodone 5 mg tablet 5 mg PO TID PRN 07/14/24 Unknown History gabapentin 300 mg capsule 300 mg PO QHS #14 caps 07/20/24 Unknown Rx Allergy/AdvReac Type Severity Reaction Status Date / Time morphine Allergy Unknown Other Verified 07/19/24 21:01 lisinopril AdvReac Intermediate Cough Verified 07/19/24 21:01 Family History Mother Breast cancer Myocardial infarction CAD (coronary artery disease) Diabetes Father Myocardial infarction CAD (coronary artery disease) Brother Myocardial infarction Diabetes CAD (coronary artery disease) Sister Breast cancer Hypertension Surgical History History of left hip hemiarthroplasty History of heart artery stent H/O cardiac catheterization Presence of coronary angioplasty implant and graft (~09/25/13) Social History household members: none Smoking Status: Never smoker alcohol intake: never substance use type: does not use caffeine: No what type of physical activity do you participate in: walking frequency: 3-4 times per week duration: 45-60 minutes/day seatbelt use: always do you feel safe at home: Yes ROS <Dr. Omkar Lomeli, - Last Filed: 07/20/24 01:19> ROS ED Constitutional Constitutional ED: Denies chills or fever(s) Eyes Eyes: Denies blurry vision or change in vision ENT ENT ED: Denies rhinorrhea or sore throat Cardiovascular Cardiovascular: Denies chest pain or palpitations Respiratory/Chest Respiratory/Chest: Denies cough or dyspnea Gastrointestinal Gastrointestinal: Denies nausea or vomiting Genitourinary Genitourinary ED: Denies dysuria or hematuria Musculoskeletal Musculoskeletal: Reports back pain; Denies neck pain Integumentary Denies abscess or rash Neurologic Neurologic: Denies headache(s) or weakness Allergic/Immunologic Allergic/Immunologic ED: Denies mouth swelling or urticaria EXAM <Dr. Omkar Lomeli DO - Last Filed: 07/20/24 01:19> Physical Exam Const Vital Signs: 07/19/24 21:01 07/19/24 23:00 07/20/24 01:00 Temperature 97 F L Temperature Source Temporal Pulse Rate 55 L 56 L 58 L Respiratory Rate 16 15 15 Blood Pressure 156/54 H 161/51 H 148/52 H Blood Pressure Mean 88 87 84 Pulse Ox 97 93 92 Oxygen Delivery Method Room Air Room Air Room Air Positive well nourished and well developed General Appearance ED: well developed and NAD HEENT Reports moist mucous membranes Neck supple and no JVD Resp normal respiratory effort and clear to auscultation bilaterally Cardio regular rate and regular rhythm GI soft to palpation, non-tender and non-distended Back/Spine Back/Spine Narrative: There is tenderness over the lumbar paraspinal muscles. Range of motion is limited in all motions of the lumbar spine secondary to pain. Straight leg raise negative bilaterally. Strength is 5/5 bilaterally in the lower extremities. There are no sensory deficits noted. Lumbar Spine / Lower Back: ROM limited Extremity General Extremety ED: Yes edema; Negative for tenderness General Extremity: edema bilateral lower extremity Details: moderate Neuro oriented x3 and no sensory deficits noted Sensorium / Orientation: alert Motor Exam: strength 5/5 throughout Deep Tendon Reflexes: Rt Patellar (L4): 2+, Lt Patellar (L4): 2+, Rt Ankle (S1): 2+ and Lt Ankle (S1): 2+ Deep Tendon Reflexes Back: Rt Patellar (L4): 2+, Lt Patellar (L4): 2+, Rt Ankle (S1): 2+ and Lt Ankle (S1): 2+ Psych mental status grossly normal <Dr. Nelson Shields, DO - Last Filed: 07/20/24 02:52> Physical Exam Const Vital Signs: 07/19/24 21:01 07/19/24 23:00 07/20/24 01:00 Temperature 97 F L Temperature Source Temporal Pulse Rate 55 L 56 L 58 L Respiratory Rate 16 15 15 Blood Pressure 156/54 H 161/51 H 148/52 H Blood Pressure Mean 88 87 84 Pulse Ox 97 93 92 Oxygen Delivery Method Room Air Room Air Room Air MDM <Dr. Omkar Lomeli, DO - Last Filed: 07/20/24 01:19> [facility] MDM Narrative Medical decision making narrative: Differential diagnosis includes lumbosacral strain, chronic back pain, congestive heart failure, cardiac dysrhythmia, cardiac ischemia, pneumonia, urinary tract infection, and electrolyte abnormality. EKG will be obtained to assess for cardiac dysrhythmia and cardiac ischemia. Chest x-ray will be obtained to assess for pneumonia and congestive heart failure. CBC will be obtained to assess for leukocytosis and anemia. Basic metabolic profile will be obtained to assess for electrolyte abnormality and renal function. High-sensitivity troponin will be obtained to assess for cardiac ischemia. 2-hour repeat high-sensitivity troponin will be obtained to assess for ongoing cardiac ischemia. proBNP will be obtained to assess for congestive heart failure. Urinalysis will be obtained to assess for urinary tract infection. History & Record Review Additional record(s) reviewed:: Prior ED visit and Prior labs Lab Data Attestation: I reviewed the patient's lab results. Lab results narrative: CBC was reviewed. There is slight anemia with a hemoglobin of 11.7. Basic metabolic profile was reviewed and was essentially within normal limits. Initial high-sensitivity troponin was reviewed and was slightly elevated at 17. proBNP was reviewed and was normal at 224. Urinalysis was reviewed. Leukocyte esterase was 100. There are 5-10 epithelial cells and 2+ bacteria. Labs: Laboratory Results - last 24 hr 07/19/24 07/19/24 07/20/24 00:29 23:45 01:58 WBC 10.1 RBC 4.12 L Hgb 11.7 L Hct 37.4 MCV 90.8 MCH 28.4 MCHC 31.3 L RDW Std Deviation 49.1 H RDW Coeff of [place] 14.6 Plt Count 352 MPV 9.8 Immature Gran % (Auto) 1.200 H Neut % (Auto) 66.5 Lymph % (Auto) 14.5 L Treasure % (Auto) 13.8 H Eos % (Auto) 3.1 Baso % (Auto) 0.9 Absolute Neuts (auto) 6.8 Absolute Lymphs (auto) 1.47 Nucleated RBC % 0 Sodium 139 Potassium 4.3 Chloride 103 Carbon Dioxide 24.0 Anion Gap 12 BUN 25 H Creatinine 1.01 Estim Creat Clear Calc 33.38 L Est GFR (MDRD) Non-Af 55 L BUN/Creatinine Ratio 24.3 H Glucose 115 H Calcium 8.8 Troponin T High Sens 17 H Troponin T Hi Sens 2 Hr 16 H NT pro BNP II 224 Urine Color Yellow Urine Clarity Sl. Cloudy Urine pH 6.5 Ur Specific [place] 1.015 Urine Protein 30 H Urine Glucose (UA) Normal Urine Ketones Negative Urine Occult Blood 10 H Urine Nitrite Negative Urine Bilirubin Negative Urine Urobilinogen Normal Ur Leukocyte Esterase 100 H Urine RBC 0 SEEN Urine WBC 0-5 SEEN Ur Squamous Epith Cells 5-10 SEEN Ur Transition Epith Cell 0-5 SEEN Urine Bacteria 2+ Urine Mucus 0 SEEN Radiography Chest X-Ray - ED: 2 View, Read by ED Physician, Read by Radiologist, Cardiomegaly and - (Mild pulmonary vascular congestion) Diagnostic Testing: Clinical Impression(s) from Imaging Studies Chest X-Ray 07/19/24 23:25 IMPRESSION: Mild edema in the setting of cardiomegaly. Reading Location: [place] [id number] [place] and lateral chest x-ray was obtained. There are 2 views. On my independent interpretation, lung mccormick show mild pulmonary vascular congestion. There is mild cardiomegaly. Bony thorax is normal. Radiologist also interpreted the x-ray and agrees. EKG Initial EKG: Attestation: I personally reviewed and interpreted this EKG as follows: Interpretation: Sinus Bradycardia (57) and Non-Specific ST Changes Comments: EKG was obtained. On my independent interpretation, it showed a sinus bradycardia with a rate of 57. MD interval, QRS interval, and QTc intervals were all normal. There is left axis deviation at -65. There are nonspecific ST-T wave changes. Prior EKG tracings: available for review Prior: Unchanged (04/03/2024) Treatment and Re-Evaluation Narrative: Patient was given injection of fentanyl. Patient was given a repeat dose of fentanyl. Patient was still complaining of low back pain. Patient was given a dose of oxycodone. Care of the patient was turned over to the oncoming physician pending delta troponin. <Dr. Nelson Shields, DO - Last Filed: 07/20/24 02:52> [facility] Lab Data Labs: Laboratory Results - last 24 hr 07/19/24 07/19/24 07/20/24 00:29 23:45 01:58 WBC 10.1 RBC 4.12 L Hgb 11.7 L Hct 37.4 MCV 90.8 MCH 28.4 MCHC 31.3 L RDW Std Deviation 49.1 H RDW Coeff of [place] 14.6 Plt Count 352 MPV 9.8 Immature Gran % (Auto) 1.200 H Neut % (Auto) 66.5 Lymph % (Auto) 14.5 L [place] % (Auto) 13.8 H Eos % (Auto) 3.1 Baso % (Auto) 0.9 Absolute Neuts (auto) 6.8 Absolute Lymphs (auto) 1.47 Nucleated RBC % 0 Sodium 139 Potassium 4.3 Chloride 103 Carbon Dioxide 24.0 Anion Gap 12 BUN 25 H Creatinine 1.01 Estim Creat Clear Calc 33.38 L Est GFR (MDRD) Non-Af 55 L BUN/Creatinine Ratio 24.3 H Glucose 115 H Calcium 8.8 Troponin T High Sens 17 H Troponin T Hi Sens 2 Hr 16 H NT pro BNP II 224 Urine Color Yellow Urine Clarity Sl. Cloudy Urine pH 6.5 Ur Specific [place] 1.015 Urine Protein 30 H Urine Glucose (UA) Normal Urine Ketones Negative Urine Occult Blood 10 H Urine Nitrite Negative Urine Bilirubin Negative Urine Urobilinogen Normal Ur Leukocyte Esterase 100 H Urine RBC 0 SEEN Urine WBC 0-5 SEEN Ur Squamous Epith Cells 5-10 SEEN Ur Transition Epith Cell 0-5 SEEN Urine Bacteria 2+ Urine Mucus 0 SEEN Radiography Diagnostic Testing: Clinical Impression(s) from Imaging Studies Chest X-Ray 07/19/24 23:25 IMPRESSION: Mild edema in the setting of cardiomegaly. Reading Location: [id number] Treatment and Re-Evaluation Narrative: Patient was given injection of fentanyl. Patient was given a repeat dose of fentanyl. Patient was still complaining of low back pain. Patient was given a dose of oxycodone. Care of the patient was turned over to the oncoming physician pending delta troponin. 0245: Le. Patient signed out to me pending delta troponin which was negative. She is status post 2 dose of fentanyl along with her home dose of oxycodone. Was told by nursing she had too much pain to walk. I evaluate the patient family is in the room. Same chronic back pain that she deals with. She is on baclofen and oxycodone through her pain management doctor. Reviewing records her injections were held a week ago due to a fall. She has a appointment on Tuesday with her pain Dr. Kennedy. She ambulates the walker. I discussed with patient and family, she has too much difficulty ambulating for admission to help with pain control and likely rehab as she lives at home. Family reports she walked to the bathroom earlier with a walker. Family reports they can be at her home to help her over the weekend until Tuesday. They would like to try gabapentin for which family has been on. She is given a dose in the ED short prescription to her pharmacy. All questions were answered. Discharge Plan Triage Chief Complaint: Back ED Provider: Omkar Lomeli Dx/Rx/DC Orders Clinical Impression: Chronic low back pain, Peripheral edema, Essential hypertension Instructions: ED Back Pain (Acute or Chronic) Prescriptions: New gabapentin 300 mg capsule 300 mg PO QHS Qty: 14 0RF No Action sertraline 50 mg tablet 50 mg PO DAILY Eliquis 2.5 mg tablet 2.5 mg PO Q12H omeprazole 20 mg capsule,delayed release(DR/EC) 20 mg PO DAILY Patient Comments: STOMACH MEDICINE, ACID REFLUX melatonin 10 mg tablet 10 mg PO QHS losartan 50 mg Tablet 50 mg PO BID amlodipine 5 mg tablet 5 mg PO DAILY levothyroxine 112 mcg tablet 112 mcg PO DAILY ezetimibe 10 mg tablet 10 mg PO DAILY trazodone 50 mg Tablet 50 mg PO QHS 30 Days Qty: 30 0RF acetaminophen 500 mg Tablet 1,000 mg PO Q8 Qty: 0 0RF Artificial Tears([id number]) 1-0.2-0.2 % Drops 2 drp EACH EYE Q1H PRN (Reason: DRY EYES) Qty: 0 0RF Deep Sea Nasal 0.65 % Aerosol,Amenia 2 spray NASAL TID PRN PRN (Reason: NASAL DRYNESS) Qty: 0 0RF aspirin [Adult Low Dose Aspirin] 81 mg tablet,delayed release (DR/EC) 81 mg PO DAILY tramadol 50 mg tablet 50 mg PO Q4H PRN PRN (Reason: Pain) 3 Days Qty: 20 0RF baclofen 5 mg tablet 5 mg PO TID PRN oxycodone 5 mg tablet 5 mg PO TID PRN ondansetron 4 mg tablet,disintegrating 4 mg PO Q6H PRN (Reason: nausea and vomiting) Qty: 10 0RF (DME) Handicap placard See Rx Instructions .Route .MEDSUPPLY Qty: 1 0RF Rx Instructions: Lifetime nitroglycerin 0.4 mg tablet, sublingual 0.4 mg SUBLINGUAL Q5M PRN (Reason: Chest Pain) Qty: 25 1RF amiodarone 200 mg tablet 200 mg PO DAILY Primary Care Provider: Kenji Osei Referrals: Reji Kennedy MD [Med Staff - Active Staff] - Keep Ele[place] appointment Kenji Osei MD [Primary Care Provider] - Activity Restrictions/Additional Instructions: Your labs are stable. Cardiac enzymes negative. Negative BNP 224. You have chronic back pain. Continue regimen through your pain doctor with baclofen and oxycodone. Take gabapentin as prescribed. Use your walker. Keep your follow-up with Dr. Kennedy on Tuesday. Print Language: Stateless Disposition Disposition: Home, Self Care
--- NOTE | 2024-07-19 22:04 | EKG12_ITS ---
Test Reason : BACK PAIN Blood Pressure : */* mmHG Vent. Rate : 57 BPM Atrial Rate : 57 BPM P-R Int : 164 ms QRS Dur : 98 ms QT Int : 470 ms P-R-T Axes : 30 -65 15 degrees QTcB Int : 457 ms Sinus bradycardia Left axis deviation Pulmonary disease pattern Septal infarct , age undetermined Abnormal ECG Confirmed by Ulices Guy ([id number]), editor publications DAVID SMITH ([id number]) on 07/23/2024 10:41:39 AM Referred By: Confirmed By: Ulices Guy
[2024-07-19] MEDS: fentaNYL 100 MCG/2 ML Ampul 25 MCG IV ×2 (22:59→23:50)
[2024-07-19 23:00] VITALS: BP 161/51; PULSE 56; RESP 15; O2SAT 93
--- NOTE | 2024-07-19 23:25 | RAD_ITS ---
PROCEDURE: CHEST PA AND LATERAL 07/19/2024 REASON FOR EXAM: CONGESTIVE HEART FAILURE TECHNIQUE: Frontal and lateral views of the chest. COMPARISON: 04/03/2024. FINDINGS: Hardware: None. Heart: Enlarged. Mediastinum: The mediastinal contour is stable. Lungs: Mild vascular indistinctness of the lung bases suggestive of mild edema. Bones: No acute abnormalities. RAD/Chest PA and Lateral IMPRESSION: Mild edema in the setting of cardiomegaly. Reading Location: [place] [id number]
[2024-07-19 23:51] VITALS: BMI 24.0
[2024-07-20 00:13] LABS: Anion Gap 12 (5-15); BUN 25 mg/dL (4-19); BUN/Creat Ratio 24.3 RATIO (10-20); Calcium,Total 8.8 mg/dL (7.6-11.0); Chloride 103 mmol/L (98-108); Creatinine, Serum 1.01 mg/dL (0.70-1.20); EST Glomerular Filtration Rate 55 (>60); Estimated Creatinine Clearance 33.38 ml/min (50-250); Glucose 115 mg/dL (70-99); Potassium 4.3 mmol/L (3.3-5.1); Pro- Brain NATRIURETIC PEPTIDE 224 pg/mL (<=1800); Sodium Level 139 mmol/L (133-145); Troponin T High Sensitivity 17 ng/L (<=14)
[2024-07-20 00:20] LABS: Absolute Lymphocyte Count 1.47 X10^3/uL (0.83-4.51); Absolute Neutrophil Count 6.8 X10^3/uL (2.0-7.7); Basophil# 0.09 X10^3/uL; Basophil% 0.9 % (0-1); Eosinophil# 0.31 X10^3/uL; Eosinophils% 3.1 % (0-5); Hematocrit 37.4 % (37-47); Hemoglobin 11.7 g/dL (12.0-15.0); Lymphocyte # 1.47 X10^3/ul (0.83-4.51); Lymphocyte % 14.5 % (19-41); Mean Corp Hgb Conc 31.3 g/dL (32-36); Mean Corpuscular Hgb 28.4 pg (27.0-32.0); Mean Corpuscular Volume 90.8 fL (81-99); Mean Platelet Vol. 9.8 fl (6.2-12.0); Monocyte% 13.8 % (0-10); NRBC Flagged by Analyzer 0 % (0-5); Neutrophil # 6.75 X10^3/uL (2.7-7.7); Neutrophil % 66.5 % (47-70); Platelet Count 352 K/mm3 (150-450); RBC Distribution Width CV 14.6 % (11.6-14.6); RBC Distribution Width SD 49.1 fl (35.1-43.9); Red Blood Count 4.12 M/mm3 (4.2-5.4); White Blood Count 10.1 K/mm3 (4.4-11.0)
[2024-07-20 00:28] VITALS: O2SAT 94
[2024-07-20 00:36] LABS: Mucous, Urine 0 SEEN /hpf (<or=2+); Red Blood Cells-Urine 0 SEEN /hpf (0-5)
[2024-07-20 00:46] LABS: Color, Urine Yellow (Yellow); Glucose, Dipstick Normal (Normal); Ketone-Dipstick Negative (Negative); Leukocyte Esterase-Dipstick 100 /ul (Negative); Nitrite-Dipstick Negative (Negative); Occult Blood-Urine 10 /ul (Negative); Protein-Dipstick 30 mg/dl (Negative); Specific Gravity, Urine 1.015 (1.002-1.030); Urine Bilirubin Dipstick Negative (Negative); Urine Clarity Sl. Cloudy (Clear); Urine Urobilinogen Normal (Normal); Urine pH 6.5 (5.0 - 8.0)
[2024-07-20 01:00] VITALS: BP 148/52; PULSE 58; RESP 15; O2SAT 92
[2024-07-20 01:09] LABS: Bacteria 2+ /hpf (None Seen); Squamous Epithelial Cells - UA 5-10 SEEN /hpf (5-10); Transitional Epithelial - Ur 0-5 SEEN /hpf (0-5); White Blood Cells 0-5 SEEN /hpf (0-5)
[2024-07-20] MEDS: oxyCODONE 5 MG Tablet PO (01:29)
--- NOTE | 2024-07-20 02:01 | ED.RN ---
pt having increased back pain with ambulation. pt lives alone, pt fears she will be unable to walk around home and care for self. Dr. Shields notified.
[2024-07-20 02:23] LABS: Troponin T High Sens 2 HR 16 ng/L (<=14)
[2024-07-20] MEDS: Gabapentin 300 MG Capsule PO (03:21)
[2024-07-20 03:29] VITALS: BP 165/55; PULSE 79; RESP 18; TEMP 36.8; O2SAT 94
== END 2024-07-20 03:30 | disposition home or self-care (01) ==
PROVIDERS: Emergency Provider Emergency Medicine; PCP Internal Medicine; Visit Provider Emergency Medicine
DX: M54.50 Low back pain, unspecified (principal); I13.0 Hypertensive heart and chronic kidney disease with heart failure and stage 1 through stage 4 chronic kidney disease, or unspecified chronic kidney disease; I50.32 Chronic diastolic (congestive) heart failure; G89.29 Other chronic pain; N18.9 Chronic kidney disease, unspecified; E78.00 Pure hypercholesterolemia, unspecified; I25.5 Ischemic cardiomyopathy; I25.10 Atherosclerotic heart disease of native coronary artery without angina pectoris; I25.2 Old myocardial infarction; Z79.82 Long term (current) use of aspirin; Z79.899 Other long term (current) drug therapy; Z79.01 Long term (current) use of anticoagulants; Z95.5 Presence of coronary angioplasty implant and graft
CPT/HCPCS: 71046; 80048; 81001; 83880; 84484; 85025; 93005; 96374; 96376; 99285; A4216

== ENCOUNTER 2024-09-03 17:29 | Observation (INO) | payer MEDICARE, OTHER, SELFPAY ==
[2024-09-03] VITALS (15 sets, daily range): BP systolic 120–165; BP diastolic 54–78; PULSE 58–87; RESP 13–26; TEMP 36.6–36.7; O2SAT 86–100; BMI 21.1; BMI 20.9
--- NOTE | 2024-09-03 17:37 | CT_ITS ---
PROCEDURE: STROKE CTA HEAD AND NECK W/CON 09/03/2024 REASON FOR EXAM: NEURO DEFICIT, ACUTE, STROKE SUSPECTED TECHNIQUE: STROKE CTA HEAD AND NECK W/CON Multiplanar Sagittal and Coronal images were obtained. 3D and MIP multiplanar post processing was performed. CONTRAST: Isovue 370 VOLUME: 75 mL One or more dose reduction techniques were used (e.g., Automated exposure control, adjustment of the mA and/or kV according to patient size, use of iterative reconstruction technique). RADIATION DOSE SUMMARY: CTDlvol: 34 mGy DLP: 564.31 mGycm COMPARISON: Concomitant noncontrast CT head same day 09/03/2024. FINDINGS: CTA HEAD: Patent intracranial arterial vasculature. No large vessel occlusion, flow- limiting stenosis, saccular aneurysm, or vascular malformation identified. CTA NECK: Left vertebral artery arises directly from the aortic arch. Bilateral cervical carotid and codominant vertebral arteries are widely patent without any significant atherosclerotic plaque burden or luminal stenosis. No aneurysm or dissection. NON-ANGIOGRAPHIC FINDINGS: Calcified granuloma in the left lung apex. Diffusely atrophic versus surgically absent thyroid gland. Mild cervical spondylotic changes. Moderate right TMJ arthrosis. CT/STROKE CTA Head AND Neck W/Con IMPRESSION: Widely patent intracranial and cervical arterial vasculature. Reading Location: [id number]
--- NOTE | 2024-09-03 17:37 | EKG12_ITS ---
Test Reason : STROKE ALERT Blood Pressure : */* mmHG Vent. Rate : 57 BPM Atrial Rate : 57 BPM P-R Int : 174 ms QRS Dur : 100 ms QT Int : 502 ms P-R-T Axes : 53 -65 -5 degrees QTcB Int : 488 ms Sinus bradycardia Left axis deviation Pulmonary disease pattern Minimal voltage criteria for LVH, may be normal variant ( [place] product ) Nonspecific ST and T wave abnormality Abnormal ECG Confirmed by Ulices Guy ([id number]), newspaper or periodical editor DON JUSTICE ([id number]) on 09/05/2024 11:20:02 AM Referred By: MELISSA Confirmed By: Ulices Guy
--- NOTE | 2024-09-03 17:38 | ED.VIS.STROK ---
HPI History of Present Illness Chief Complaint: Stroke Alert Narrative Narrative: 83-year-old female past medical history of atrial flutter on Eliquis presents with numbness of her right hand that began at 9:00 this morning, approximately 8 hours ago. She states she went to bed around midnight and woke up at around 7 AM. She threw up last night and again today. At 9:00 in the morning she began having right hand numbness. It is entirely her right hand that is intermittently numb. Her daughter came over, and administered a COVID test which was positive. She denies any chest pain, fever, cough, or shortness of breath but does state that she has slight headache. She has had intermittent numbness of her right hand all day. She denies any exacerbating or alleviating factors. They relate history that they went to urgent care because she wanted a formal COVID test, and when she mentioned her right hand numbness, they were sent to the emergency department because they thought that she was having a stroke. They also thought she may have been slightly confused as well. 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 Tricuspid valve regurgitation Grade II diastolic dysfunction Left ventricular systolic dysfunction (LVSD) without heart failure Coronary artery disease Preoperative cardiovascular examination Bleeding tendency Post-menopausal High cholesterol History of stress test Osteoporosis GERD (gastroesophageal reflux disease) Hypertension Closed fracture of left hip Fall Chronic back pain CKD (chronic kidney disease) Anticoagulant long-term use CAD (coronary artery disease) Non-rheumatic mitral regurgitation Paroxysmal atrial flutter Tachycardia Bladder prolapse Nonrheumatic mitral valve disorder Abnormal stress test Pure hypercholesterolemia Essential hypertension Atherosclerotic heart disease of [place] coronary artery without angina pectoris History of coronary artery stent placement (~09/25/13) Old myocardial infarction 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 Ischemic cardiomyopathy Abnormal ECG Abnormal serum enzyme level NSTEMI (non-ST elevation myocardial infarction) Angina pectoris Chest pain Hypothyroidism Home Medications ?Medication ?Instructions ?Recorded ?Last Taken ?Type Handicap placard #1 ea 11/19/20 Unknown Rx sertraline 50 mg tablet 50 mg PO DAILY ANXIETY 05/06/21 04/03/24 History nitroglycerin 0.4 mg sublingual 0.4 mg sublingual Q5M PRN Chest 01/05/23 02/28/23 04:30 Rx tablet Pain #25 tabs apixaban 2.5 mg tablet (Eliquis) 2.5 mg PO Q12H blood thinner 04/26/22 04/03/24 History melatonin 10 mg tablet 10 mg PO QHS SLEEP 04/26/22 04/02/24 History omeprazole 20 mg capsule,delayed 20 mg PO DAILY GERD 04/26/22 04/03/24 History release amiodarone 200 mg tablet 200 mg PO DAILY dose reduced at 05/04/22 04/03/24 History [facility]. losartan 50 mg tablet 50 mg PO BID BP 06/13/22 04/03/24 History ezetimibe 10 mg tablet 10 mg PO DAILY cholesterol 06/30/23 04/03/24 History levothyroxine 112 mcg tablet 112 mcg PO DAILY thyroid 06/30/23 04/03/24 History acetaminophen 500 mg tablet 1,000 mg (2 x 500 mg) PO Q8 #0 tabs 07/26/23 04/03/24 Rx peg [id number] 1 2 drp EACH EYE Q1H PRN DRY EYES #0 07/26/23 04/03/24 Rx %-0.2 %-0.2 % eye drops mL (Artificial Tears ([id number])) sodium chloride 0.65 % nasal spray 2 spray NASAL TID PRN PRN NASAL 07/26/23 Unknown Rx aerosol (Deep Sea Nasal) DRYNESS #0 mL trazodone 50 mg tablet 50 mg PO QHS 30 days #30 tabs 07/26/23 04/02/24 Rx ondansetron 4 mg disintegrating 4 mg PO Q6H PRN nausea and 03/20/24 Unknown Rx tablet vomiting #10 tabs aspirin 81 mg tablet,delayed 81 mg PO DAILY 07/07/24 Unknown History release (Adult Low Dose Aspirin) tramadol 50 mg tablet 50 mg PO Q4H PRN PRN Pain 3 days 07/07/24 Unknown Rx #20 tabs oxycodone 5 mg tablet 5 mg PO TID PRN 07/14/24 Unknown History gabapentin 300 mg capsule 300 mg PO QHS #14 caps 07/20/24 Unknown Rx amlodipine 10 mg tablet 10 mg PO DAILY 09/03/24 Unknown History baclofen 10 mg tablet 10 mg PO TID PRN 09/03/24 Unknown History carvedilol 6.25 mg tablet 6.25 mg PO BID 09/03/24 Unknown History chlorthalidone 25 mg tablet 25 mg PO DAILY 09/03/24 Unknown History oxycodone-acetaminophen 7.5 mg-325 1 tab PO TID PRN PRN pain 09/03/24 Unknown History mg tablet pitavastatin calcium 2 mg tablet 2 mg PO DAILY 09/03/24 Unknown History Allergy/AdvReac Type Severity Reaction Status Date / Time morphine Allergy Unknown Other Verified 09/03/24 17:35 lisinopril AdvReac Intermediate Cough Verified 09/03/24 17:35 Family History Mother Breast cancer Myocardial infarction CAD (coronary artery disease) Diabetes Father Myocardial infarction CAD (coronary artery disease) Brother Myocardial infarction Diabetes CAD (coronary artery disease) Sister Breast cancer Hypertension Surgical History History of left hip hemiarthroplasty History of heart artery stent H/O cardiac catheterization Presence of coronary angioplasty implant and graft (~09/25/13) Social History household members: none Smoking Status: Never smoker alcohol intake: never substance use type: does not use caffeine: No what type of physical activity do you participate in: walking frequency: 3-4 times per week duration: 45-60 minutes/day seatbelt use: always do you feel safe at home: Yes ROS ROS ED ROS Narrative Review of systems positive for nausea and vomiting. Recent positive home COVID test. Right hand numbness intermittent since 9:00 this morning. Mild headache. No dysuria or hematuria, no exacerbating or alleviating factors. No chest pain, cough, no dysuria or hematuria, no exacerbating or alleviating factors. No chest pain, cough, or shortness of breath. EXAM Physical Exam Narrative Exam Narrative: Afebrile. Vital signs noted. Nontoxic-appearing. Cardiovascular examination reveals regular rate, lungs clear to auscultation bilaterally. Abdomen soft nontender without guarding or rebound. Neurological examination shows right hand paresthesia/numbness but NIH stroke scale otherwise 1 Const Vital Signs: 09/03/24 17:30 09/03/24 17:34 09/03/24 17:58 Temperature 97.8 F Temperature Source Temporal Pulse Rate 64 63 Respiratory Rate 18 14 Blood Pressure 131/64 H 131/64 H Blood Pressure Mean 86 86 Pulse Ox 97 95 86 Oxygen Delivery Method Room Air Room Air Room Air Oxygen Flow Rate (L/min) 09/03/24 18:00 09/03/24 18:07 09/03/24 18:30 Temperature Temperature Source Pulse Rate 58 L 87 Respiratory Rate 13 18 Blood Pressure 146/61 H 120/78 Blood Pressure Mean 89 92 Pulse Ox 94 96 98 Oxygen Delivery Method Nasal Cannula Oxygen Flow Rate (L/min) 2 09/03/24 19:00 09/03/24 19:30 Temperature Temperature Source Pulse Rate 70 70 Respiratory Rate 26 H 23 H Blood Pressure 155/59 H 149/67 H Blood Pressure Mean 91 94 Pulse Ox 95 95 Oxygen Delivery Method Nasal Cannula Room Air Oxygen Flow Rate (L/min) 2 MDM MDM MDM Narrative Medical decision making narrative: The differential diagnosis includes but not limited to TIA versus stroke versus electrolyte abnormality versus peripheral paresthesia. Stroke team called from triage as her symptoms have been within the last 24 hours. However I do not feel she is a TNK candidate because she is on 2.5 of Eliquis twice a day, she is outside the window at 8 hours and she does not have a debilitating deficit. I discussed this with the stroke neurologist as well, and he agrees. EKG obtained and interpreted by myself independently as sinus bradycardia at 57 bpm without ectopy or acute ST changes. No STEMI. I reviewed her laboratory work and she has normal white count of 9.6 with hemoglobin 12.8, hematocrit 39.3, platelet count 269. Coagulation studies are negative. BMP shows glucose of 110 with anion gap of 15. High-sensitivity troponin is 25, however when compared to prior labs, chronic elevation noted. Additionally, I reviewed her respiratory swab and she is negative for COVID, influenza, and RSV. I discussed the CT imaging with both the neurologist and reviewed the radiology reports. CT of the brain without contrast shows no evidence of acute hemorrhage. CTA of the head and neck shows no large vessel occlusion. Neurology recommends observation for further workup of TIA/stroke. Patient did require Zofran for nausea while in the emergency department. Patient discussed with the hospitalist for observation on the PCU. She is in stable condition. History & Record Review Discussion w/independent historian: Patient Additional record(s) reviewed:: Prior labs (Elevated/indeterminant troponin) Lab Data Attestation: I reviewed the patient's lab results. Labs: Laboratory Results - last 24 hr 09/03/24 17:36 WBC 9.6 RBC 4.37 Hgb 12.8 Hct 39.3 MCV 89.9 MCH 29.3 MCHC 32.6 RDW Std Deviation 53.3 H RDW Coeff of [place] 16.1 H Plt Count 269 MPV 9.9 Immature Gran % (Auto) 0.300 Neut % (Auto) 77.5 H Lymph % (Auto) 11.5 L [place] % (Auto) 9.4 Eos % (Auto) 0.8 Baso % (Auto) 0.5 Absolute Neuts (auto) 7.5 Absolute Lymphs (auto) 1.11 Nucleated RBC % 0 PT 15.5 H INR 1.2 APTT 36.2 Sodium 137 Potassium 3.4 Chloride 98 Carbon Dioxide 24.8 Anion Gap 15 BUN 17 Creatinine 0.87 Estim Creat Clear Calc 38.75 L Est GFR (MDRD) Non-Af 66 BUN/Creatinine Ratio 19.3 Glucose 110 H Calcium 9.2 Troponin T High Sens 25 H D Radiography Diagnostic Testing: Clinical Impression(s) from Imaging Studies Head/Neck CTA 09/03/24 17:37 IMPRESSION: Widely patent intracranial and cervical arterial vasculature. Reading Location: [facility] Brain CT 09/03/24 17:40 IMPRESSION: No acute intracranial abnormality. Mild-moderate volume loss and chronic microangiopathic changes. Reading Location: [facility] Management Discussion w/another healthcare provider: Hospitalist (Dr. Adam) Discharge Plan Dx/Rx/DC Orders Clinical Impression: Numbness of right hand, Nausea and vomiting, residential current use of anticoagulant Disposition Disposition: Acute Care Hospital [facility] NIHSS NIHSS 1a. Level of Consciousness: 0 - Alert; keenly responsive 1b. LOC Questions: 0 - Answers BOTH questions correctly 1c. LOC Commands: 0 - Performs BOTH tasks correctly 2. Best Gaze: 0 - Normal 3. Visual: 0 - No visual loss 4. Facial Palsy: 0 - Normal symmetrical movements 5a. Left Arm: 0 - No drift; arm holds 90 (or 45) degrees for full 10 seconds 5b. Right Arm: 0 - No drift; arm holds 90 (or 45) degrees for full 10 seconds 6a. Left Le - No drift; leg holds 30-degree position for full 5 seconds 6b. Right Le - No drift; leg holds 30-degree position for full 5 seconds 7. Limb Ataxia: 0 - Absent 8. Sensory: 1 - [id number] sensory loss; (Right hand) 9. Best Language: 0 - No aphasia; normal 10. Dysarthria: 0 - Normal 11. Extinction and Inattention: 0 - No abnormality Total: 1
--- NOTE | 2024-09-03 17:40 | CT_ITS ---
PROCEDURE: STROKE BRAIN/HEAD WITHOUT CONT 09/03/2024 REASON FOR EXAM: NEURO DEFICIT, ACUTE, STROKE SUSPECTED TECHNIQUE: STROKE BRAIN/HEAD WITHOUT CONT Coronal and Sagittal reconstruction series were provided. One or more dose reduction techniques were used (e.g., Automated exposure control, adjustment of the mA and/or kV according to patient size, use of iterative reconstruction technique. RADIATION DOSE SUMMARY: CTDlvol: 44.99 mGy DLP: 762.36 mGycm COMPARISON: 05/25/2024 FINDINGS: No acute intracranial hemorrhage, extra-axial collection, mass effect or evidence of acute infarct. Mild-moderate generalized brain parenchymal volume loss, and chronic microangiopathic changes. Absent [place] ocular lenses. Atherosclerotic vascular calcifications. Intact skull base and calvarium. Clear paranasal sinuses and mastoid air cells. CT/STROKE Brain/Head without Cont IMPRESSION: No acute intracranial abnormality. Mild-moderate volume loss and chronic microangiopathic changes. Reading Location: [id number]
--- NOTE | 2024-09-03 17:55 | ED.RN ---
called [facility] once pt returned to room, [facility] stated theyre are a couple ahead of you. They stated they would call back as soon as possible.
[2024-09-03 18:04] LABS: Hematocrit 39.3 % (37-47); Hemoglobin 12.8 g/dL (12.0-15.0); Immature Granulocytes Count 0.030 X10^3/uL (0.0-0.0); Mean Corp Hgb Conc 32.6 g/dL (32-36); Mean Corpuscular Volume 89.9 fL (81-99); Mean Platelet Vol. 9.9 fl (6.2-12.0); NRBC Flagged by Analyzer 0 % (0-5); Platelet Count 269 K/mm3 (150-450); RBC Distribution Width CV 16.1 % (11.6-14.6); RBC Distribution Width SD 53.3 fl (35.1-43.9); Red Blood Count 4.37 M/mm3 (4.2-5.4); White Blood Count 9.6 K/mm3 (4.4-11.0)
[2024-09-03 18:12] LABS: Prothrombin Time (Protime)PT. 15.5 SECONDS (11.7-14.9)
[2024-09-03 18:13] LABS: Partial Thromboplast Time 36.2 Seconds (24.1-36.2)
--- NOTE | 2024-09-03 18:13 | ED.RN ---
this rn called [facility] again to follow up at 1813
[2024-09-03 18:39] LABS: Anion Gap 15 (5-15); BUN 17 mg/dL (4-19); BUN/Creat Ratio 19.3 RATIO (10-20); Calcium,Total 9.2 mg/dL (7.6-11.0); Carbon Dioxide 24.8 mmol/L (21.0-32.0); Chloride 98 mmol/L (98-108); Estimated Creatinine Clearance 38.75 ml/min (50-250); Glucose 110 mg/dL (70-99); Potassium 3.4 mmol/L (3.3-5.1)
[2024-09-03 18:40] LABS: Troponin T High Sensitivity 25 ng/L (<=14)
--- NOTE | 2024-09-03 19:27 | CM.ED ---
Social Work Reason for visit: Stroke alert SW met with patient son who stated he has been staying with patient over the last several weeks to help her recovery from another injury. Emotional support provided. No further needs identified at this time. Paola Barrett, MECHANICAL SHOVEL OPERATOR, FOLDING MACHINE SETTER
--- NOTE | 2024-09-03 19:57 | PCM.HP.STD ---
[facility] - General General Date of Admission: 09/03/24 Date of Service: 09/03/24 Chief Complaint: Right hand numbness [facility] Narrative EVENS ORDOÑEZ, is a 83 F who presents to the emergency room with chief complaint of right hand numbness. Patient has significant past medical history of atrial flutter for which she takes Eliquis and rate has been controlled. Upon initial presentation the patient reported having right hand numbness beginning approximately 9:00 this morning. She states she has had some nausea and vomiting that would began last night and has continued to today. Her daughter came over and evaluated her and gave her a COVID test at home which she states was positive ,however, her COVID test here in the emergency room was negative. Patient denies any chest pain, fever, cough or shortness of breath but does admit to having had a slight headache. Initially the patient had presented to an urgent care but was sent to the emergency room when they found that she had right hand numbness. Initial CT scan was negative and CT angiogram as well. Blood work is unremarkable and patient is being treated for her nausea at this present time. Patient will be admitted to the progressive care unit placed on neurological evaluation checks per routine and MRI in the a.m. during my evaluation the patient was stating that she had had right hand numbness going back for 2 months and she was feeling a little bit better at the time I evaluated her. It was unclear to me how reliable she was as a historian therefore we will continue with above admission. Patient also expressed wishes to be DNR comfort care arrest. 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 Tricuspid valve regurgitation Grade II diastolic dysfunction Left ventricular systolic dysfunction (LVSD) without heart failure Coronary artery disease Preoperative cardiovascular examination Bleeding tendency Post-menopausal High cholesterol History of stress test Osteoporosis GERD (gastroesophageal reflux disease) Hypertension Closed fracture of left hip Fall Chronic back pain CKD (chronic kidney disease) Anticoagulant long-term use CAD (coronary artery disease) Non-rheumatic mitral regurgitation Paroxysmal atrial flutter Tachycardia Bladder prolapse Nonrheumatic mitral valve disorder Abnormal stress test Pure hypercholesterolemia Essential hypertension Atherosclerotic heart disease of [place] coronary artery without angina pectoris History of coronary artery stent placement (~09/25/13) Old myocardial infarction custodial use of drug Ischemic cardiomyopathy Abnormal ECG Abnormal serum enzyme level NSTEMI (non-ST elevation myocardial infarction) Angina pectoris Chest pain Hypothyroidism Home Medications ?Medication ?Instructions ?Recorded ?Last Taken ?Type Handicap placard #1 ea 11/19/20 Unknown Rx sertraline 50 mg tablet 50 mg PO DAILY ANXIETY 05/06/21 04/03/24 History nitroglycerin 0.4 mg sublingual 0.4 mg sublingual Q5M PRN Chest 02/25/22 04/20/22 04:30 Rx tablet Pain #25 tabs apixaban 2.5 mg tablet (Eliquis) 2.5 mg PO Q12H blood thinner 04/26/22 04/03/24 History melatonin 10 mg tablet 10 mg PO QHS SLEEP 04/26/22 04/02/24 History omeprazole 20 mg capsule,delayed 20 mg PO DAILY GERD 04/26/22 04/03/24 History release amiodarone 200 mg tablet 200 mg PO DAILY dose reduced at 05/04/22 04/03/24 History [facility]. losartan 50 mg tablet 50 mg PO BID BP 06/13/22 04/03/24 History ezetimibe 10 mg tablet 10 mg PO DAILY cholesterol 06/30/23 04/03/24 History levothyroxine 112 mcg tablet 112 mcg PO DAILY thyroid 06/30/23 04/03/24 History acetaminophen 500 mg tablet 1,000 mg (2 x 500 mg) PO Q8 #0 tabs 07/26/23 04/03/24 Rx trazodone 50 mg tablet 50 mg PO QHS 30 days #30 tabs 07/26/23 04/02/24 Rx ondansetron 4 mg disintegrating 4 mg PO Q6H PRN nausea and 03/20/24 Unknown Rx tablet vomiting #10 tabs aspirin 81 mg tablet,delayed 81 mg PO DAILY 07/07/24 Unknown History release (Adult Low Dose Aspirin) amlodipine 10 mg tablet 10 mg PO DAILY 09/03/24 Unknown History baclofen 10 mg tablet 10 mg PO TID PRN 09/03/24 Unknown History bisacodyl 5 mg tablet 5 mg PO BID PRN constipation 09/03/24 Unknown History carvedilol 6.25 mg tablet 6.25 mg PO BID 09/03/24 Unknown History chlorthalidone 25 mg tablet 25 mg PO DAILY 09/03/24 Unknown History hydroxyzine HCl 50 mg tablet 50 mg PO DAILY 09/03/24 Unknown History linaclotide 72 mcg capsule 72 mcg PO DAILY 09/03/24 Unknown History (Linzess) magnesium oxide 400 mg PO DAILY 09/03/24 Unknown History molnupiravir 200 mg capsule (EUA) 800 mg PO BID 09/03/24 Unknown History ([place]) oxycodone-acetaminophen 7.5 mg-325 1 tab PO Q8H PRN pain 09/03/24 Unknown History mg tablet pitavastatin calcium 2 mg tablet 2 mg PO DAILY 09/03/24 Unknown History tamsulosin 0.4 mg capsule (Flomax) 0.4 mg PO DAILY 09/03/24 Unknown History Allergy/AdvReac Type Severity Reaction Status Date / Time morphine Allergy Unknown Other Verified 09/03/24 17:35 lisinopril AdvReac Intermediate Cough Verified 09/03/24 17:35 Family History Mother Breast cancer Myocardial infarction CAD (coronary artery disease) Diabetes Father Myocardial infarction CAD (coronary artery disease) Brother Myocardial infarction Diabetes CAD (coronary artery disease) Sister Breast cancer Hypertension Surgical History History of left hip hemiarthroplasty History of heart artery stent H/O cardiac catheterization Presence of coronary angioplasty implant and graft (~09/25/13) Social History household members: none Smoking Status: Never smoker alcohol intake: never substance use type: does not use caffeine: No what type of physical activity do you participate in: walking frequency: 3-4 times per week duration: 45-60 minutes/day seatbelt use: always do you feel safe at home: Yes ROS Constitutional Constitutional: Denies anorexia, chills or fever(s) Eyes Eyes: Denies blurry vision ENT HEENT: Denies abnormal hearing or dysphagia Cardiovascular Cardiovascular: Denies chest pain Respiratory/Chest Respiratory/Chest: Denies shortness of breath at rest Gastrointestinal Gastrointestinal: Reports nausea and vomiting; Denies abdominal pain Genitourinary Genitourinary: Denies dysuria Musculoskeletal Musculoskeletal: Reports back pain Integumentary Integumentary: Denies dry skin Neurologic Neurologic: Reports headache(s) and numbness; Denies abnormal speech or confusion Psychiatric Psychiatric: Denies anxiety or depression Vital Signs Vital Signs Vital Signs: 09/03/24 17:30 09/03/24 17:34 09/03/24 17:58 Temperature 97.8 F Temperature Source Temporal Pulse Rate 64 63 Respiratory Rate 18 14 Blood Pressure 131/64 H 131/64 H Blood Pressure Mean 86 86 Pulse Ox 97 95 86 Oxygen Delivery Method Room Air Room Air Room Air Oxygen Flow Rate (L/min) 09/03/24 18:00 09/03/24 18:07 09/03/24 18:30 Temperature Temperature Source Pulse Rate 58 L 87 Respiratory Rate 13 18 Blood Pressure 146/61 H 120/78 Blood Pressure Mean 89 92 Pulse Ox 94 96 98 Oxygen Delivery Method Nasal Cannula Oxygen Flow Rate (L/min) 2 09/03/24 19:00 09/03/24 19:30 09/03/24 19:56 Temperature 98.1 F Temperature Source Pulse Rate 70 70 63 Respiratory Rate 26 H 23 H 16 Blood Pressure 155/59 H 149/67 H 149/67 H Blood Pressure Mean 91 94 94 Pulse Ox 95 95 100 Oxygen Delivery Method Nasal Cannula Room Air Oxygen Flow Rate (L/min) 2 Weight Weight: 115 lb 8.003 oz Body Mass Index (BMI) 21.1 Physical Exam Const alert, oriented x3 and no apparent distress General Appearance: cooperative and well developed HEENT normocephalic and head/scalp atraumatic Eyes PERRL and EOMs intact bilaterally Neck no lymphadenopathy General: trachea midline Lymph Lymphatic: no lymphadenopathy noted and no lymphedema noted Resp normal respiratory effort, normal air movement and clear to auscultation bilaterally Cardio regular rate, regular rhythm, S1 normal heart sound, S2 normal heart sound and no murmurs GI normal to inspection, nondistended, normoactive bowel sounds, soft to palpation and non-tender Extremity normal capillary refill General Extremity: Negative for edema Skin General Skin Exam: no breakdown and turgor normal Neuro CN's II-XII intact bilaterally, no focal motor deficits and no sensory deficits noted Speech: speech normal Motor Exam: strength 5/5 throughout Psych thought process normal, cooperative and affect normal Appearance: appropriate Results Lab / Micro Data 09/03/24 17:36 09/03/24 17:36 Labs: Laboratory Results - last 24 hr 09/03/24 17:36: WBC 9.6, RBC 4.37, Hgb 12.8, Hct 39.3, MCV 89.9, MCH 29.3, MCHC 32.6, RDW Std Deviation 53.3 H, RDW Coeff of [place] 16.1 H, Plt Count 269, MPV 9.9, Immature Gran % (Auto) 0.300, Neut % (Auto) 77.5 H, Lymph % (Auto) 11.5 L, [place] % (Auto) 9.4, Eos % (Auto) 0.8, Baso % (Auto) 0.5, Absolute Neuts (auto) 7.5, Absolute Lymphs (auto) 1.11, Nucleated RBC % 0, PT 15.5 H, INR 1.2, APTT 36.2, Sodium 137, Potassium 3.4, Chloride 98, Carbon Dioxide 24.8, Anion Gap 15, BUN 17, Creatinine 0.87, Estim Creat Clear Calc 38.75 L, Est GFR (MDRD) Non-Af 66, BUN/Creatinine Ratio 19.3, Glucose 110 H, Calcium 9.2, Troponin T High Sens 25 H D Micro: Microbiology 09/03/24 18:17 Mucosa - Nose SARS-CoV-2, Influenza & RSV (PCR) - Final Imaging Radiology Impression Head/Neck CTA 09/03/24 17:37 IMPRESSION: Widely patent intracranial and cervical arterial vasculature. Reading Location: [facility] Brain CT 09/03/24 17:40 IMPRESSION: No acute intracranial abnormality. Mild-moderate volume loss and chronic microangiopathic changes. 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 will continue use of Eliquis as patient has been on it for atrial flutter. Patient was given an NIH score of 1 in the emergency room. She was not a candidate for thrombolytic therapy due to long-term use of anticoagulation as well as length of time from onset of symptoms to presentation in the emergency room 2. Atrial flutter rate controlled continue Eliquis 3. Hyperlipidemia?continue statin medication 4. Hypothyroidism?continue Synthroid 5. Nausea and vomiting?Zofran as needed for nausea will start with liquid diet advance as tolerated 6. DVT prophylaxis?patient is already on anticoagulation Charges/Coding Visit Charges OBSV E&M: 95241 Observ/hosp same date L2
[2024-09-03 20:49] LABS: Troponin T High Sens 2 HR 23 ng/L (<=14)
[2024-09-03 22:22] LABS: Troponin T High Sens 4 HR 23 ng/L (<=14)
[2024-09-03] MEDS: MELATONIN 10 MG TABLET PO (23:38)
[2024-09-03] MEDS: APIXABAN 2.5 MG TABLET (WCH) PO (23:40)
[2024-09-04 01:00] VITALS: BP 114/48; PULSE 54; RESP 17; TEMP 36.7; O2SAT 94
[2024-09-04 03:00] VITALS: PULSE 57
[2024-09-04 04:45] VITALS: BP 109/46; PULSE 50; RESP 16; TEMP 36.6; O2SAT 99
[2024-09-04 05:21] VITALS: BMI 20.9
[2024-09-04 05:23] VITALS: BMI 20.9
[2024-09-04 06:38] VITALS: O2SAT 94
[2024-09-04 08:11] LABS: Cholesterol 162 mg/dL (<=200); Low Density Lipoprotein Calc. 70 mg/dL; Triglycerides 103 mg/dL; Very Low Density Lipoprotein 21 mg/dL (5-40); cholesterol:hdl ratio screen 2.26
--- NOTE | 2024-09-04 08:45 | MRI_ITS ---
EXAM: BRAIN WITHOUT CONTRAST CLINICAL HISTORY: TIA COMPARISON: None. TECHNIQUE: Multiplanar, multisequence MR images of the brain were obtained without gadolinium contrast material. FINDINGS: No intracranial hemorrhage, mass, mass effect, midline shift or pathologic extra- axial fluid collection. No hydrocephalus. Preservation of the rachel- white parenchymal differentiation. No areas of restricted diffusion to suggest acute ischemia or infarction. No gradient signal blooming artifacts are identified. No cerebellar tonsillar ectopia. No sellar/suprasellar signal abnormalities. The ocular globes and intraorbital soft tissues are symmetrically unremarkable. Paranasal sinuses are essentially clear. There is fluid signal in a portion of the mastoid air cells on the right and left, with mastoiditis. MRI/Brain without Contrast IMPRESSION: There is fluid signal in a portion of the mastoid air cells on the right and le ft, with mastoiditis. There is no acute intracranial abnormality. Reading Location: [facility]
[2024-09-04 09:32] VITALS: BP 165/51; PULSE 57; RESP 16; TEMP 36.4; O2SAT 97
[2024-09-04] MEDS: Aspirin E.C. 81 MG Tablet PO (09:44)
[2024-09-04] MEDS: hydrOXYzine PAM 25 MG Capsule 50 MG PO (09:44)
[2024-09-04] MEDS: Magnesium Chloride 64 MG Delay Rel.Tablet 128 MG PO (09:44)
[2024-09-04] MEDS: APIXABAN 2.5 MG TABLET (WCH) PO (09:45)
--- NOTE | 2024-09-04 11:29 | DCINST_ITS ---
Discharge Instructions DC O2, CPAP, BIPAP needs Home O2 Discharge instructions: No Dressing / Incision Discharge Activity: Return to Normal Activity May resume sexual activity in: No Restrictions Weight Bearing Status: Full weight bearing Follow Up Care Test Results: Test results from this visit will be discussed in further detail at your follow- up appointment, if applicable. Discharge Plan Admission Admit Date/Time: 09/03/24 20:07 Primary Reason for Your Visit: numbness of right hand Attending Provider: Miguel Angel Lanier Primary Care Provider: Kenji Osei Consulting Providers: Arnaud Adam Discharge Orders/Prescriptions Prescriptions: Continued sertraline 50 mg tablet 50 mg PO DAILY Eliquis 2.5 mg tablet 2.5 mg PO Q12H omeprazole 20 mg capsule,delayed release(DR/EC) 20 mg PO DAILY Patient Comments: STOMACH MEDICINE, ACID REFLUX melatonin 10 mg tablet 10 mg PO QHS losartan 50 mg Tablet 50 mg PO BID levothyroxine 112 mcg tablet 112 mcg PO DAILY ezetimibe 10 mg tablet 10 mg PO DAILY trazodone 50 mg Tablet 50 mg PO QHS 30 Days Qty: 30 0RF aspirin [Adult Low Dose Aspirin] 81 mg tablet,delayed release (DR/EC) 81 mg PO DAILY ondansetron 4 mg tablet,disintegrating 4 mg PO Q6H PRN (Reason: nausea and vomiting) Qty: 10 0RF baclofen 10 mg tablet 10 mg PO TID PRN amlodipine 10 mg tablet 10 mg PO DAILY carvedilol 6.25 mg tablet 6.25 mg PO BID chlorthalidone 25 mg tablet 25 mg PO DAILY oxycodone-acetaminophen 7.5-325 mg tablet 1 tab PO Q8H PRN (Reason: pain) pitavastatin calcium 2 mg tablet 2 mg PO DAILY bisacodyl 5 mg tablet 5 mg PO BID PRN (Reason: constipation) magnesium oxide 200 mg magnesium tablet 400 mg PO DAILY hydroxyzine HCl 50 mg tablet 50 mg PO DAILY tamsulosin [Flomax] 0.4 mg capsule 0.4 mg PO DAILY polyethylene glycol 3350 [Miralax] 17 gram/dose powder 17 g PO DAILY acetaminophen 500 mg Tablet 1,000 mg PO .Q12 (DME) Handicap placard See Rx Instructions .Route .MEDSUPPLY Qty: 1 0RF Rx Instructions: Lifetime nitroglycerin 0.4 mg tablet, sublingual 0.4 mg SUBLINGUAL Q5M PRN (Reason: Chest Pain) Qty: 25 1RF amiodarone 200 mg tablet 200 mg PO DAILY Changed Linzess 72 mcg capsule 72 mcg PO DAILY PRN (Reason: Constipation) Qty: 1 0RF Discontinued Lagevrio (EUA) 200 mg capsule 800 mg PO BID Referrals / Follow Up: Kenji Osei MD [Primary Care Provider] - Disposition Disposition (needs filled in before D/C Order can be placed): Home, Self Care
--- NOTE | 2024-09-04 11:38 | DS.PCM_ITS ---
Providers Date of Admission: 09/03/24 Date of Discharge: 09/04/24 Primary Care Physician: Dr. Kenji Osei MD Reason For Visit: TRANSIENT ISCHEMIC ATTACK Diagnosis Discharge Diagnosis (1) roasterman current use of anticoagulant: Status: Acute Code(s): Z79.01 - assisted (current) use of anticoagulants (2) Nausea and vomiting: Status: Acute Code(s): R11.2 - Nausea with vomiting, unspecified (3) Numbness of right hand: Status: Acute Code(s): R20.0 - Anesthesia of skin (4) Hypothyroidism: Status: Acute Code(s): E03.9 - Hypothyroidism, unspecified (5) Hyperlipidemia: Status: Acute Code(s): E78.5 - Hyperlipidemia, unspecified (6) Atrial flutter: Status: Acute Code(s): I48.92 - Unspecified atrial flutter (7) TIA (transient ischemic attack): Status: Acute Code(s): G45.9 - Transient cerebral ischemic attack, unspecified Plan 1. Left hand paresthesias #2 atrial flutter #3 hyperlipidemia #4 hypothyroidism #5 chronic use of anticoagulation secondary to atrial flutter Medications at Discharge Home Medications Handicap placard #1 ea 11/19/20 sertraline 50 mg tablet 50 mg PO DAILY ANXIETY 05/06/21 nitroglycerin 0.4 mg sublingual tablet 0.4 mg sublingual Q5M PRN Chest Pain #25 tabs 02/25/22 apixaban 2.5 mg tablet (Eliquis) 2.5 mg PO Q12H blood thinner 04/26/22 melatonin 10 mg tablet 10 mg PO QHS SLEEP 04/26/22 omeprazole 20 mg capsule,delayed release 20 mg PO DAILY GERD 04/26/22 amiodarone 200 mg tablet 200 mg PO DAILY heart rate 05/04/22 losartan 50 mg tablet 50 mg PO BID BP 06/13/22 ezetimibe 10 mg tablet 10 mg PO DAILY cholesterol 06/30/23 levothyroxine 112 mcg tablet 112 mcg PO DAILY thyroid 06/30/23 trazodone 50 mg tablet 50 mg PO QHS sleep 30 days #30 tabs 07/26/23 ondansetron 4 mg disintegrating tablet 4 mg PO Q6H PRN nausea and vomiting #10 tabs 03/20/24 aspirin 81 mg tablet,delayed release (Adult Low Dose Aspirin) 81 mg PO DAILY heart health 07/07/24 acetaminophen 500 mg tablet 1,000 mg PO .Q12 pain 09/03/24 amlodipine 10 mg tablet 10 mg PO DAILY blood pressure 09/03/24 baclofen 10 mg tablet 10 mg PO TID PRN pain 09/03/24 bisacodyl 5 mg tablet 5 mg PO BID PRN constipation 09/03/24 carvedilol 6.25 mg tablet 6.25 mg PO BID blood pressure 09/03/24 chlorthalidone 25 mg tablet 25 mg PO DAILY blood pressure 09/03/24 hydroxyzine HCl 50 mg tablet 50 mg PO DAILY itching 09/03/24 magnesium oxide 400 mg PO DAILY supplement 09/03/24 oxycodone-acetaminophen 7.5 mg-325 mg tablet 1 tab PO Q8H PRN pain 09/03/24 pitavastatin calcium 2 mg tablet 2 mg PO DAILY cholesterol 09/03/24 polyethylene glycol 3350 17 gram/dose oral powder (Miralax) 17 g PO DAILY bowels 09/03/24 tamsulosin 0.4 mg capsule (Flomax) 0.4 mg PO DAILY prostate 09/03/24 linaclotide 72 mcg capsule (Linzess) 72 mcg PO DAILY PRN Constipation #1 cap 09/04/24 Hospital Course Operations None Procedures None Summary of Care Provided Minutes Spent on Discharge: 30 Hospital Course: This 83-year-old white female was seen in the emergency room at [facility] as a stroke alert with complaints of numbness of her right hand which she described as intermittently numb. She was sent to the emergency room at [facility] for evaluation from an urgent care center where she went for a COVID test due to the fact her home COVID test was positive. The urgent care facility was concerned the patient was possibly having a stroke. Workup in the emergency room included a CT scan of the brain and I had neck CTA. These imaging studies were unremarkable. Patient was placed in observation status on PCU, NIH scores were monitored, she was seen by PT and OT and she underwent an MRI of the brain which was unremarkable. This examiner did not feel the patient's presentation was in keeping with a TIA or stroke. On 09/04/2024, patient was seen and examined: On examination she appeared in good health and spirits, she does not appear to be in any distress. Vital signs as documented. Skin warm and dry and without overt rashes. Neck without JVD, thyroid appears normal, trachea is midline, neck is supple. Lungs clear, normal air movement was noted. Heart exam notable for regular rhythm, normal sounds and absence of murmurs, rubs or gallops. Abdomen unremarkable and without evidence of organomegaly, masses, or abdominal aortic enlargement, bowel sounds are present in all 4 quadrants, no abdominal tenderness was noted. Extremities nonedematous, no cyanosis was noted, no clubbing was noted. Neuro: Cranial nerves II through XII are grossly intact, no focal motor deficits were noted, sensation to light touch and pinprick is intact, motor exam 5/5 throughout. Psych: Patient is alert and oriented x3, she does not appear anxious or depressed, she does not appear agitated. Patient was discharged home in stable condition on 09/04/2024. Weight / BMI Weight Weight: 52 kg Body Mass Index (BMI) 20.9 ABG / Lab / Microbiology Data 09/03/24 17:36 09/03/24 17:36 Laboratory: Laboratory Results - last 24 hr 09/03/24 17:36: WBC 9.6, RBC 4.37, Hgb 12.8, Hct 39.3, MCV 89.9, MCH 29.3, MCHC 32.6, RDW Std Deviation 53.3 H, RDW Coeff of Polo 16.1 H, Plt Count 269, MPV 9.9, Immature Gran % (Auto) 0.300, Neut % (Auto) 77.5 H, Lymph % (Auto) 11.5 L, [place] % (Auto) 9.4, Eos % (Auto) 0.8, Baso % (Auto) 0.5, Absolute Neuts (auto) 7.5, Absolute Lymphs (auto) 1.11, Nucleated RBC % 0, PT 15.5 H, INR 1.2, APTT 36.2, Sodium 137, Potassium 3.4, Chloride 98, Carbon Dioxide 24.8, Anion Gap 15, BUN 17, Creatinine 0.87, Estim Creat Clear Calc 38.75 L, Est GFR (MDRD) Non-Af 66, BUN/Creatinine Ratio 19.3, Glucose 110 H, Calcium 9.2, Troponin T High Sens 25 H D 09/03/24 20:28: Troponin T Hi Sens 2 Hr 23 H 09/03/24 21:36: Troponin T Hi Sens 4Hr 23 H 09/04/24 06:19: Triglycerides 103, Cholesterol 162, LDL Cholesterol, Calc 70, VLDL Cholesterol 21, HDL Cholesterol 72, Cholesterol/HDL Ratio 2.26 Microbiology: Microbiology 09/03/24 18:17 Mucosa - Nose SARS-CoV-2, Influenza & RSV (PCR) - Final Radiography Diagnostic Testing: Radiology Impression Head/Neck CTA 09/03/24 17:37 IMPRESSION: Widely patent intracranial and cervical arterial vasculature. Reading Location: [facility] Brain CT 09/03/24 17:40 IMPRESSION: No acute intracranial abnormality. Mild-moderate volume loss and chronic microangiopathic changes. Reading Location: [facility] Brain MRI 09/04/24 08:45 IMPRESSION: There is fluid signal in a portion of the mastoid air cells on the right and left, with mastoiditis. There is no acute intracranial abnormality. [facility] Instructions May resume sexual activity in: No Restrictions Weight Bearing Status: Full weight bearing DC O2, CPAP, BIPAP Needs Home O2 Discharge instructions: No Meaningful Use Info Meaningful Use Meaningful Use Diagnoses (Choose all that apply): None applicable Discharge Plan Admission Admit Date/Time: 09/03/24 20:07 Primary Reason for Your Visit: numbness of right hand Attending Provider: Miguel Angel Lanier Primary Care Provider: Kenji Osei Consulting Providers: Arnaud Adam Discharge Orders/Prescriptions Prescriptions: Continued sertraline 50 mg tablet 50 mg PO DAILY Eliquis 2.5 mg tablet 2.5 mg PO Q12H omeprazole 20 mg capsule,delayed release(DR/EC) 20 mg PO DAILY Patient Comments: STOMACH MEDICINE, ACID REFLUX melatonin 10 mg tablet 10 mg PO QHS losartan 50 mg Tablet 50 mg PO BID levothyroxine 112 mcg tablet 112 mcg PO DAILY ezetimibe 10 mg tablet 10 mg PO DAILY trazodone 50 mg Tablet 50 mg PO QHS 30 Days Qty: 30 0RF aspirin [Adult Low Dose Aspirin] 81 mg tablet,delayed release (DR/EC) 81 mg PO DAILY ondansetron 4 mg tablet,disintegrating 4 mg PO Q6H PRN (Reason: nausea and vomiting) Qty: 10 0RF baclofen 10 mg tablet 10 mg PO TID PRN amlodipine 10 mg tablet 10 mg PO DAILY carvedilol 6.25 mg tablet 6.25 mg PO BID chlorthalidone 25 mg tablet 25 mg PO DAILY oxycodone-acetaminophen 7.5-325 mg tablet 1 tab PO Q8H PRN (Reason: pain) pitavastatin calcium 2 mg tablet 2 mg PO DAILY bisacodyl 5 mg tablet 5 mg PO BID PRN (Reason: constipation) magnesium oxide 200 mg magnesium tablet 400 mg PO DAILY hydroxyzine HCl 50 mg tablet 50 mg PO DAILY tamsulosin [Flomax] 0.4 mg capsule 0.4 mg PO DAILY polyethylene glycol 3350 [Miralax] 17 gram/dose powder 17 g PO DAILY acetaminophen 500 mg Tablet 1,000 mg PO .Q12 (DME) Handicap placard See Rx Instructions .Route .MEDSUPPLY Qty: 1 0RF Rx Instructions: Lifetime nitroglycerin 0.4 mg tablet, sublingual 0.4 mg SUBLINGUAL Q5M PRN (Reason: Chest Pain) Qty: 25 1RF amiodarone 200 mg tablet 200 mg PO DAILY Changed Linzess 72 mcg capsule 72 mcg PO DAILY PRN (Reason: Constipation) Qty: 1 0RF Discontinued Lagevrio (EUA) 200 mg capsule 800 mg PO BID Referrals / Follow Up: Kenji Osei MD [Primary Care Provider] - 09/12/24 10:30 am Disposition Disposition (needs filled in before D/C Order can be placed): Home, Self Care Charges/Coding Visit Charges Inpatient E&M: 68119 Disch Hosp
--- NOTE | 2024-09-04 13:08 | CASEMGMT ---
Patient has order for discharge. RN CM in to discuss needs at discharge. Patient denies needs or help at discharge. No therapy recommended at discharge. Patient had no further questions or concerns.
[2024-09-04 13:28] VITALS: BP 131/40; PULSE 52; RESP 16; TEMP 36.6; O2SAT 96
--- NOTE | 2024-09-04 14:29 | CASEMGMT ---
Social Work PHQ-9 not completed as imaging does not show evidence of a stroke. NIURKA Lewis
== END 2024-09-04 14:43 | disposition home or self-care (01) ==
LOC: ED 19:51 → PCU 20:07
PROVIDERS: Admitting Provider Family Medicine; Emergency Provider Emergency Medicine; PCP Internal Medicine; Visit Provider Internal Medicine
DX: G45.9 Transient cerebral ischemic attack, unspecified (principal); I48.92 Unspecified atrial flutter; I12.9 Hypertensive chronic kidney disease with stage 1 through stage 4 chronic kidney disease, or unspecified chronic kidney disease; Z79.01 Long term (current) use of anticoagulants; E78.00 Pure hypercholesterolemia, unspecified; N18.9 Chronic kidney disease, unspecified; I25.5 Ischemic cardiomyopathy; I25.10 Atherosclerotic heart disease of native coronary artery without angina pectoris; K21.9 Gastro-esophageal reflux disease without esophagitis; Z79.899 Other long term (current) drug therapy; R00.1 Bradycardia, unspecified; E03.9 Hypothyroidism, unspecified; Z79.890 Hormone replacement therapy; Z66 Do not resuscitate; R29.701 NIHSS score 1
CPT/HCPCS: 36415; 70450; 70496; 70498; 70551; 80048; 80061; 82962; 84484; 85025; 85610; 85730; 87631; 92610; 93005; 94762; 96374; 97162; 97166; 99221; 99285; Q9967; A4216; G0378; J2405

== ENCOUNTER 2024-09-05 18:38 | Emergency (ER) | payer MEDICARE, OTHER, SELFPAY ==
[2024-09-05] VITALS (13 sets, daily range): BP systolic 104–160; BP diastolic 46–58; PULSE 46–55; RESP 12–24; TEMP 35.7–36.9; O2SAT 89–94
--- NOTE | 2024-09-05 19:03 | EX.ED.DYSGE1 ---
HPI History of Present Illness Chief Complaint: Fatigue Informant: patient and family Onset/Context/Timing Onset: Today Current Severity: Mild Maximum Severity: Mild Narrative Narrative: 83-year-old female history of A-fib, CAD, prior MD, cardiomyopathy on Eliquis with a history of hypothyroidism. Recent admission earlier this week for nausea vomiting. That is since resolved. States she just feels so fatigued today. Denies headache. Denies chest pain or shortness of breath. Denies abdominal pain. Denies any urinary symptoms. Just says she feels like all the energy has been washed out of her. Prior similar symptoms: No Recent Illness/Hospitalization: Yes [facility] Medical History Back fracture Back fracture Current use of correction anticoagulation Tricuspid valve regurgitation Grade II diastolic dysfunction Left ventricular systolic dysfunction (LVSD) without heart failure Coronary artery disease Preoperative cardiovascular examination Bleeding tendency Post-menopausal High cholesterol History of stress test Osteoporosis GERD (gastroesophageal reflux disease) Hypertension Closed fracture of left hip Fall Chronic back pain CKD (chronic kidney disease) Anticoagulant long-term use CAD (coronary artery disease) Non-rheumatic mitral regurgitation Paroxysmal atrial flutter Tachycardia Bladder prolapse Nonrheumatic mitral valve disorder Abnormal stress test Pure hypercholesterolemia Essential hypertension Atherosclerotic heart disease of [place] coronary artery without angina pectoris History of coronary artery stent placement (~09/25/13) Old myocardial infarction [facility] use of drug Ischemic cardiomyopathy Abnormal ECG Abnormal serum enzyme level NSTEMI (non-ST elevation myocardial infarction) Angina pectoris Chest pain Hypothyroidism Home Medications ?Medication ?Instructions ?Recorded ?Last Taken ?Type Handicap placard #1 ea 11/19/20 Unknown Rx sertraline 50 mg tablet 50 mg PO DAILY ANXIETY 05/06/21 09/03/24 09:00 History 50 mg nitroglycerin 0.4 mg sublingual 0.4 mg sublingual Q5M PRN Chest 02/25/22 04/20/22 04:30 Rx tablet Pain #25 tabs apixaban 2.5 mg tablet (Eliquis) 2.5 mg PO Q12H blood thinner 04/26/22 09/03/24 10:00 History 2.5 mg melatonin 10 mg tablet 10 mg PO QHS SLEEP 04/26/22 09/02/24 21:00 History 10 mg omeprazole 20 mg capsule,delayed 20 mg PO DAILY GERD 04/26/22 04/03/24 History release amiodarone 200 mg tablet 200 mg PO DAILY heart rate 05/04/22 09/03/24 09:00 History 200 mg losartan 50 mg tablet 50 mg PO BID BP 06/13/22 09/03/24 09:00 History 50 mg ezetimibe 10 mg tablet 10 mg PO DAILY cholesterol 06/30/23 09/03/24 09:00 History 10 mg levothyroxine 112 mcg tablet 112 mcg PO DAILY thyroid 06/30/23 09/03/24 09:00 History 112 mcg trazodone 50 mg tablet 50 mg PO QHS sleep 30 days #30 tabs 07/26/23 04/02/24 Rx ondansetron 4 mg disintegrating 4 mg PO Q6H PRN nausea and 03/20/24 09/03/24 10:00 Rx tablet vomiting #10 tabs 4 mg aspirin 81 mg tablet,delayed 81 mg PO DAILY heart health 07/07/24 09/03/24 09:00 History release (Adult Low Dose Aspirin) 81 mg acetaminophen 500 mg tablet 1,000 mg PO .Q12 pain 09/03/24 09/03/24 10:00 History 1,000 mg amlodipine 10 mg tablet 10 mg PO DAILY blood pressure 09/03/24 09/03/24 09:00 History 10 mg baclofen 10 mg tablet 10 mg PO TID PRN pain 09/03/24 09/03/24 16:00 History 20 mg bisacodyl 5 mg tablet 5 mg PO BID PRN constipation 09/03/24 09/01/24 21:00 History 5 mg carvedilol 6.25 mg tablet 6.25 mg PO BID blood pressure 09/03/24 Unknown History chlorthalidone 25 mg tablet 25 mg PO DAILY blood pressure 09/03/24 09/03/24 09:00 History 25 mg hydroxyzine HCl 50 mg tablet 50 mg PO DAILY itching 09/03/24 Unknown History magnesium oxide 400 mg PO DAILY supplement 09/03/24 09/02/24 21:00 History 400 mg oxycodone-acetaminophen 7.5 mg-325 1 tab PO Q8H PRN pain 09/03/24 09/03/24 16:00 History mg tablet 1 TAB pitavastatin calcium 2 mg tablet 2 mg PO DAILY cholesterol 09/03/24 09/03/24 09:00 History 2 mg polyethylene glycol 3350 17 17 g PO DAILY bowels 09/03/24 09/01/24 22:00 History gram/dose oral powder (Miralax) 17 grams tamsulosin 0.4 mg capsule (Flomax) 0.4 mg PO DAILY prostate 09/03/24 Unknown History linaclotide 72 mcg capsule 72 mcg PO DAILY PRN Constipation 09/04/24 09/03/24 09:00 Rx (Linzess) #1 cap 72 mcg Allergy/AdvReac Type Severity Reaction Status Date / Time morphine Allergy Unknown Other Verified 09/05/24 18:39 lisinopril AdvReac Intermediate Cough Verified 09/05/24 18:39 Family History Mother Breast cancer Myocardial infarction CAD (coronary artery disease) Diabetes Father Myocardial infarction CAD (coronary artery disease) Brother Myocardial infarction Diabetes CAD (coronary artery disease) Sister Breast cancer Hypertension Surgical History History of left hip hemiarthroplasty History of heart artery stent H/O cardiac catheterization Presence of coronary angioplasty implant and graft (~09/25/13) Social History household members: none Smoking Status: Never smoker alcohol intake: never substance use type: does not use caffeine: No what type of physical activity do you participate in: walking frequency: 3-4 times per week duration: 45-60 minutes/day seatbelt use: always do you feel safe at home: Yes ROS ROS ED ROS Narrative Nausea vomiting earlier in the week resolved. Constitutional Constitutional ED: Denies chills or fever(s) Eyes Eyes: Denies blurry vision ENT ENT ED: Denies ear pain Cardiovascular Cardiovascular: Denies chest pain Respiratory/Chest Respiratory/Chest: Denies cough or dyspnea Gastrointestinal Gastrointestinal: Reports nausea and vomiting; Denies abdominal pain, constipation, diarrhea or melena Genitourinary Genitourinary ED: Denies dysuria or hematuria Musculoskeletal Musculoskeletal: Denies arthralgias or back pain Integumentary Denies abscess Neurologic Neurologic: Denies headache(s) Endocrine Endocrinology: Denies cold intolerance Hematologic/Lymphatic Hematologic/Lymphatic: Reports none Allergic/Immunologic Allergic/Immunologic ED: Denies mouth swelling, tongue swelling or urticaria EXAM Physical Exam Narrative Exam Narrative: Well-appearing 83-year-old female. Sitting upright in bed. Family at bedside. Vital signs are stable afebrile. She does not look septic or toxic. No distress. Pulse ox 92% on room air no hypoxia. H EENT exam pupils round react light. Moist extremities. Neck nontender no JVD. No lymphadenopathy. Back nontender. Lungs clear to auscultation bilaterally. Heart bradycardic rate about 50 no murmur. Chest wall and ribs nontender. Abdomen soft nontender. Moving all 4 extremities. Normal focus puller strength. Normal dorsi plantarflexion. Calves nontender no edema. Neurologically she is awake alert. Answering questions following commands. No focal motor deficits. Very benign exam. Const Vital Signs: 09/05/24 18:40 09/05/24 19:38 09/05/24 19:39 Temperature 96.3 F L Temperature Source Temporal Pulse Rate 47 L 48 L Respiratory Rate 15 14 Respiratory Effort Normal Non-Labored Respiratory Pattern Normal Blood Pressure 117/46 L 132/50 H Blood Pressure Mean 69 77 Pulse Ox 92 94 Oxygen Delivery Method Room Air Room Air 09/05/24 19:45 09/05/24 19:46 09/05/24 20:00 Temperature Temperature Source Pulse Rate Respiratory Rate Respiratory Effort Respiratory Pattern Blood Pressure 132/50 H Blood Pressure Mean 75 Pulse Ox 94 91 Oxygen Delivery Method 09/05/24 20:15 09/05/24 20:30 09/05/24 20:35 Temperature Temperature Source Pulse Rate 49 L Respiratory Rate 12 Respiratory Effort Respiratory Pattern Blood Pressure 124/49 H Blood Pressure Mean 69 Pulse Ox 89 93 92 Oxygen Delivery Method 09/05/24 20:45 09/05/24 21:00 09/05/24 21:25 Temperature Temperature Source Pulse Rate 49 L 46 L 54 L Respiratory Rate 12 15 24 H Respiratory Effort Respiratory Pattern Blood Pressure 129/50 H 104/48 L Blood Pressure Mean 74 64 Pulse Ox 92 92 92 Oxygen Delivery Method Room Air Room Air Room Air Positive well nourished and well developed; Negative for obese, cachectic, contractures or unkempt General Appearance ED: well developed and NAD; Negative for unkempt, cachectic, contractures, cyanotic, diaphoretic or pallor Nutritional Appearance: Negative for cachectic or obese HEENT Reports moist mucous membranes Negative for trauma or tenderness Eyes PERRL and EOMs intact bilaterally Neck no lymphadenopathy, supple and no JVD Chest Wall inspection of chest normal and palpation of chest normal Resp normal respiratory effort and clear to auscultation bilaterally Cardio regular rhythm, S1 normal heart sound, S2 normal heart sound and no murmurs; Negative for regular rate Rate: bradycardia GI normal to inspection, nondistended, normoactive bowel sounds, non-tender, non-distended and no masses Auscultation: normoactive bowel sounds Palpation: soft; Negative for tender, guarding or rebound tenderness present Back/Spine no CVA tenderness General Back: Negative for CVA tenderness Cervical Spine: Negative for cervical spine tenderness Thoracic Spine / Upper Back: Negative for thoracic spinal tenderness or paraspinal muscle tenderness Lumbar Spine / Lower Back: Negative for lumbar spinal tenderness Extremity normal to inspection General Extremety ED: Negative for edema or tenderness General Extremity: Negative for edema Neuro oriented x3 and CN's II-XII intact bilaterally Sensorium / Orientation: alert Motor Exam: strength 5/5 throughout Psych mental status grossly normal Appearance: Negative for unkempt Skin no rashes or lesions noted, no wounds and skin turgor normal General Skin Exam: Negative for jaundice or pallor Lesions: No lesion noted Rashes: No rashes noted Trauma: Negative for abrasion Wounds: Negative for wounds noted MDM MDM MDM Narrative Medical decision making narrative: 83-year-old female feels fatigued. Exam benign. Screening labs are in be obtained. She was seen earlier in the week at admission for nausea and vomiting. She is bradycardic but her pressure was good with that. Repeat exam at 9:10 PM patient is doing well. Exam unchanged. We went over her labs. She has a mild hyponatremia and hypokalemia. She will be given a liter normal saline. Some oral potassium. She wanted some Tylenol for some lower back pain. On repeat exam of her back she has some mild tenderness just left to the lower lumbar spine over iliac crest region. There is no discoloration rating. There is for ambulatory see how she does if she is doing well should be discharged home with outpatient follow-up. Repeat exam patient is doing well at 10:06 PM. When the IV fluids are done she will be discharged home. Outpatient follow-up with her primary care provider. History & Record Review Discussion w/independent historian: Patient and Family Additional record(s) reviewed:: Prior inpatient record, Prior outpatient record, Prior ED visit and Prior labs Lab Data Attestation: I reviewed the patient's lab results. Lab results narrative: Chemistry shows sodium 129. Potassium 3.2. Gap 14. BUN and creatinine 23 and 1.64. Glucose 115. UA shows 5-10 white cells no bacteria. No nitrites. No red cells. TSH is normal at 1.89. Labs: Laboratory Results - last 24 hr 09/05/24 09/05/24 19:30 19:35 WBC 7.8 RBC 4.00 L Hgb 11.6 L Hct 34.8 L MCV 87.0 MCH 29.0 MCHC 33.3 RDW Std Deviation 52.7 H RDW Coeff of [place] 16.2 H Plt Count 265 MPV 9.8 Immature Gran % (Auto) 0.800 Neut % (Auto) 65.2 Lymph % (Auto) 13.9 L [place] % (Auto) 16.2 H Eos % (Auto) 3.3 Baso % (Auto) 0.6 Absolute Neuts (auto) 5.1 Absolute Lymphs (auto) 1.08 Nucleated RBC % 0 Sodium 129 L Potassium 3.2 L Chloride 93 L Carbon Dioxide 22.6 Anion Gap 14 BUN 23 H Creatinine 1.64 H Est GFR (MDRD) Non-Af 31 L BUN/Creatinine Ratio 13.8 Glucose 115 H Calcium 8.3 TSH 1.890 Urine Color Yellow Urine Clarity Clear Urine pH 6.0 Ur Specific [place] 1.010 Urine Protein 15 H Urine Glucose (UA) Normal Urine Ketones Negative Urine Occult Blood Negative Urine Nitrite Negative Urine Bilirubin Negative Urine Urobilinogen Normal Ur Leukocyte Esterase 25 H Urine RBC 0 SEEN Urine WBC 5-10 SEEN Ur Squamous Epith Cells 0 SEEN Ur Transition Epith Cell 0-5 SEEN Urine Bacteria 0 SEEN Hyaline Casts 0-5 SEEN Urine Mucus 0 SEEN Radiography Chest X-Ray - ED: 2 View, Read by ED Physician, Read by Radiologist, Lungs, Mediastinum, Bony Structures, No Acute Disease, Chronic Changes and Cardiomegaly Diagnostic Testing: Clinical Impression(s) from Imaging Studies Chest X-Ray 09/05/24 19:40 IMPRESSION: Mild pulmonary vascular congestion. No focal consolidation. Stable moderate cardiomegaly. Reading Location: [facility] Chest x-ray, 2 views, AP and lateral, interpreted by myself and the radiologist. Shows cardiomegaly. Chronic changes. No acute process. No effusion. No pneumonia. Rhythm Strip Rhythm Strip: Sinus bradycardia Rate: 49 Ectopy: None EKG Initial EKG: Interpretation: No Acute Injury Pattern and Sinus Bradycardia Comments: I now I agree with sinus bradycardia rate of 49 no acute signs of MD or ischemia. Discharge Plan Triage Chief Complaint: Fatigue ED Provider: Kentrell Lindsey Dx/Rx/DC Orders Clinical Impression: Generalized weakness, Chronic anticoagulation, Acute hyponatremia, Bradycardia, History of atrial fibrillation Instructions: ED Hyponatremia, ED Weakness Uncertain Cause Prescriptions: No Action sertraline 50 mg tablet 50 mg PO DAILY Eliquis 2.5 mg tablet 2.5 mg PO Q12H omeprazole 20 mg capsule,delayed release(DR/EC) 20 mg PO DAILY Patient Comments: STOMACH MEDICINE, ACID REFLUX melatonin 10 mg tablet 10 mg PO QHS losartan 50 mg Tablet 50 mg PO BID levothyroxine 112 mcg tablet 112 mcg PO DAILY ezetimibe 10 mg tablet 10 mg PO DAILY trazodone 50 mg Tablet 50 mg PO QHS 30 Days Qty: 30 0RF aspirin [Adult Low Dose Aspirin] 81 mg tablet,delayed release (DR/EC) 81 mg PO DAILY ondansetron 4 mg tablet,disintegrating 4 mg PO Q6H PRN (Reason: nausea and vomiting) Qty: 10 0RF baclofen 10 mg tablet 10 mg PO TID PRN amlodipine 10 mg tablet 10 mg PO DAILY carvedilol 6.25 mg tablet 6.25 mg PO BID chlorthalidone 25 mg tablet 25 mg PO DAILY oxycodone-acetaminophen 7.5-325 mg tablet 1 tab PO Q8H PRN (Reason: pain) pitavastatin calcium 2 mg tablet 2 mg PO DAILY bisacodyl 5 mg tablet 5 mg PO BID PRN (Reason: constipation) magnesium oxide 200 mg magnesium tablet 400 mg PO DAILY hydroxyzine HCl 50 mg tablet 50 mg PO DAILY tamsulosin [Flomax] 0.4 mg capsule 0.4 mg PO DAILY polyethylene glycol 3350 [Miralax] 17 gram/dose powder 17 g PO DAILY acetaminophen 500 mg Tablet 1,000 mg PO .Q12 Linzess 72 mcg capsule 72 mcg PO DAILY PRN (Reason: Constipation) Qty: 1 0RF (DME) Handicap placard See Rx Instructions .Route .MEDSUPPLY Qty: 1 0RF Rx Instructions: Lifetime nitroglycerin 0.4 mg tablet, sublingual 0.4 mg SUBLINGUAL Q5M PRN (Reason: Chest Pain) Qty: 25 1RF amiodarone 200 mg tablet 200 mg PO DAILY Primary Care Provider: Kenji Osei Referrals: Kenji Osei MD [Primary Care Provider] - 3-5 Days Activity Restrictions/Additional Instructions: Plenty of fluids and rest. Follow-up with your primary care physician in 3 to 5 days to ensure you are improving. Return emerged part if feeling a lot worse. Print Language: [place] Disposition Disposition: Home, Self Care
--- NOTE | 2024-09-05 19:40 | RAD_ITS ---
PROCEDURE: CHEST PA AND LATERAL 09/05/2024 REASON FOR EXAM: FATIGUE TECHNIQUE: CHEST PA AND LATERAL COMPARISON: 07/19/2024 FINDINGS: Bibasilar subsegmental atelectasis. Mild pulmonary vascular congestion. No focal consolidation. No pleural effusion or pneumothorax. Stable moderate cardiomegaly. Calcified aortic arch. No acute fractures. RAD/Chest PA and Lateral IMPRESSION: Mild pulmonary vascular congestion. No focal consolidation. Stable moderate ca rdiomegaly. Reading Location: [id number]
--- NOTE | 2024-09-05 19:40 | RAD_ITS ---
PROCEDURE: CHEST PA AND LATERAL 09/05/2024 REASON FOR EXAM: FATIGUE TECHNIQUE: CHEST PA AND LATERAL COMPARISON: 07/19/2024 FINDINGS: Bibasilar subsegmental atelectasis. Mild pulmonary vascular congestion. No focal consolidation. No pleural effusion or pneumothorax. Stable moderate cardiomegaly. Calcified aortic arch. No acute fractures. RAD/Chest PA and Lateral IMPRESSION: Mild pulmonary vascular congestion. No focal consolidation. Stable moderate ca rdiomegaly. Reading Location: [id number]
[2024-09-05 19:45] LABS: Mucous, Urine 0 SEEN /hpf (<or=2+); Red Blood Cells-Urine 0 SEEN /hpf (0-5); Squamous Epithelial Cells - UA 0 SEEN /hpf (5-10)
[2024-09-05 20:27] LABS: Color, Urine Yellow (Yellow); Glucose, Dipstick Normal (Normal); Ketone-Dipstick Negative (Negative); Leukocyte Esterase-Dipstick 25 /ul (Negative); Nitrite-Dipstick Negative (Negative); Occult Blood-Urine Negative /ul (Negative); Protein-Dipstick 15 mg/dl (Negative); Specific Gravity, Urine 1.010 (1.002-1.030); Urine Bilirubin Dipstick Negative (Negative)
[2024-09-05 20:42] LABS: Transitional Epithelial - Ur 0-5 SEEN /hpf (0-5)
[2024-09-05 20:53] LABS: Anion Gap 14 (5-15); BUN 23 mg/dL (4-19); BUN/Creat Ratio 13.8 RATIO (10-20); Calcium,Total 8.3 mg/dL (7.6-11.0); Carbon Dioxide 22.6 mmol/L (21.0-32.0); Chloride 93 mmol/L (98-108); Glucose 115 mg/dL (70-99); Potassium 3.2 mmol/L (3.3-5.1)
[2024-09-05 21:07] LABS: Hematocrit 34.8 % (37-47); Hemoglobin 11.6 g/dL (12.0-15.0); Immature Granulocytes Count 0.060 X10^3/uL (0.0-0.0); Mean Corp Hgb Conc 33.3 g/dL (32-36); Mean Corpuscular Volume 87.0 fL (81-99); Mean Platelet Vol. 9.8 fl (6.2-12.0); NRBC Flagged by Analyzer 0 % (0-5); Platelet Count 265 K/mm3 (150-450); RBC Distribution Width CV 16.2 % (11.6-14.6); RBC Distribution Width SD 52.7 fl (35.1-43.9); Red Blood Count 4.00 M/mm3 (4.2-5.4); White Blood Count 7.8 K/mm3 (4.4-11.0)
[2024-09-05] MEDS: Potassium Chloride Oral Tablet 20 MEQ 40 MEQ PO (21:22)
[2024-09-05] MEDS: 0.9% Normal Saline (1000mL) 1,000 ML 999 ML IV (21:22)
== END 2024-09-05 22:51 | disposition home or self-care (01) ==
PROVIDERS: Emergency Provider Emergency Medicine; PCP Internal Medicine; Visit Provider Emergency Medicine
DX: R53.1 Weakness (principal); I13.0 Hypertensive heart and chronic kidney disease with heart failure and stage 1 through stage 4 chronic kidney disease, or unspecified chronic kidney disease; I50.32 Chronic diastolic (congestive) heart failure; E87.1 Hypo-osmolality and hyponatremia; I25.2 Old myocardial infarction; I25.10 Atherosclerotic heart disease of native coronary artery without angina pectoris; I25.5 Ischemic cardiomyopathy; R00.1 Bradycardia, unspecified; N18.9 Chronic kidney disease, unspecified; Z79.01 Long term (current) use of anticoagulants; Z95.5 Presence of coronary angioplasty implant and graft
CPT/HCPCS: 71046; 80048; 81001; 84443; 85025; 93005; 96360; 99285; P9612; A4216

== ENCOUNTER 2024-09-17 18:00 | Emergency (ER) | payer MEDICARE, OTHER, SELFPAY ==
[2024-09-17 18:02] VITALS: BP 150/59; PULSE 55; RESP 16; TEMP 36.8; O2SAT 93; BMI 22.0
--- NOTE | 2024-09-17 18:19 | US_ITS ---
PROCEDURE: RIGHT LOWER EXTREMITY VENOUS DUPLEX IMAG/LIMITED/UNI 09/17/2024 REASON FOR EXAM: Right leg swelling TECHNIQUE: Ultrasonography of the right lower extremity veins utilizing 2D grayscale and color Doppler. COMPARISON: None. FINDINGS: No intraluminal echogenicity to suggest the presence of a deep venous thrombosis. Appropriate respiratory variation, augmentation and venous compression is noted. US/Venous Duplex Imag/Limited/Uni IMPRESSION: No evidence for DVT in the right lower extremity. Reading Location: [id number]
--- NOTE | 2024-09-17 18:30 | ED.VIS.LOWEX ---
HPI History of Present Illness Chief Complaint: Edema Informant: patient and family Narrative Narrative: Here with son sent from urgent care for evaluation. 4-day history isolated right lower leg swelling. No trauma. No pain. No chest pains or shortness of breath. She is on Eliquis for history of paroxysmal A-fib. She has been compliant. No history of PE or DVT. She does have history of vertebral compression fractures multiple in the last year per son. Osteoporosis. She is not as mobile however denies decreased mobility than baseline the last couple weeks. She ambulates with a walker. 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 Tricuspid valve regurgitation Grade II diastolic dysfunction Left ventricular systolic dysfunction (LVSD) without heart failure Coronary artery disease Preoperative cardiovascular examination Bleeding tendency Post-menopausal High cholesterol History of stress test Osteoporosis GERD (gastroesophageal reflux disease) Hypertension Closed fracture of left hip Fall Chronic back pain CKD (chronic kidney disease) Anticoagulant long-term use CAD (coronary artery disease) Non-rheumatic mitral regurgitation Paroxysmal atrial flutter Tachycardia Bladder prolapse Nonrheumatic mitral valve disorder Abnormal stress test Pure hypercholesterolemia Essential hypertension Atherosclerotic heart disease of [place] coronary artery without angina pectoris History of coronary artery stent placement (~09/25/13) Old myocardial 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 Ischemic cardiomyopathy Abnormal ECG Abnormal serum enzyme level NSTEMI (non-ST elevation myocardial infarction) Angina pectoris Chest pain Hypothyroidism Home Medications ?Medication ?Instructions ?Recorded ?Last Taken ?Type Handicap placard #1 ea 11/19/20 Unknown Rx sertraline 50 mg tablet 50 mg PO DAILY ANXIETY 05/06/21 09/17/24 History nitroglycerin 0.4 mg sublingual 0.4 mg sublingual Q5M PRN Chest 02/25/22 04/20/22 04:30 Rx tablet Pain #25 tabs apixaban 2.5 mg tablet (Eliquis) 2.5 mg PO Q12H blood thinner 04/26/22 09/17/24 History melatonin 10 mg tablet 10 mg PO QHS SLEEP 04/26/22 09/16/24 History omeprazole 20 mg capsule,delayed 20 mg PO DAILY GERD 04/26/22 09/17/24 History release amiodarone 200 mg tablet 200 mg PO DAILY heart rate 05/04/22 09/17/24 History losartan 50 mg tablet 50 mg PO BID BP 06/13/22 09/17/24 History ezetimibe 10 mg tablet 10 mg PO DAILY cholesterol 06/30/23 09/17/24 History levothyroxine 112 mcg tablet 112 mcg PO DAILY thyroid 06/30/23 09/17/24 History trazodone 50 mg tablet 50 mg PO QHS sleep 30 days #30 tabs 07/26/23 04/02/24 Rx ondansetron 4 mg disintegrating 4 mg PO Q6H PRN nausea and 03/20/24 09/03/24 10:00 Rx tablet vomiting #10 tabs 4 mg aspirin 81 mg tablet,delayed 81 mg PO DAILY heart health 07/07/24 09/17/24 History release (Adult Low Dose Aspirin) amlodipine 10 mg tablet 10 mg PO DAILY blood pressure 09/03/24 09/17/24 History baclofen 10 mg tablet 10 mg PO TID PRN pain 09/03/24 09/17/24 History bisacodyl 5 mg tablet 5 mg PO BID PRN constipation 09/03/24 09/01/24 21:00 History 5 mg carvedilol 6.25 mg tablet 6.25 mg PO BID blood pressure 09/03/24 09/17/24 History chlorthalidone 25 mg tablet 25 mg PO DAILY blood pressure 09/03/24 09/17/24 History magnesium oxide 400 mg PO DAILY supplement 09/03/24 09/17/24 History oxycodone-acetaminophen 7.5 mg-325 1 tab PO Q8H PRN pain 09/03/24 09/17/24 History mg tablet pitavastatin calcium 2 mg tablet 2 mg PO DAILY cholesterol 09/03/24 09/17/24 History polyethylene glycol 3350 17 17 g PO DAILY bowels 09/03/24 09/01/24 22:00 History gram/dose oral powder (Miralax) 17 grams Allergy/AdvReac Type Severity Reaction Status Date / Time morphine Allergy Unknown Other Verified 09/17/24 18:03 lisinopril AdvReac Intermediate Cough Verified 09/17/24 18:03 Family History Mother Breast cancer Myocardial infarction CAD (coronary artery disease) Diabetes Father Myocardial infarction CAD (coronary artery disease) Brother Myocardial infarction Diabetes CAD (coronary artery disease) Sister Breast cancer Hypertension Surgical History History of left hip hemiarthroplasty History of heart artery stent H/O cardiac catheterization Presence of coronary angioplasty implant and graft (~09/25/13) Social History household members: none Smoking Status: Never smoker alcohol intake: never substance use type: does not use caffeine: No what type of physical activity do you participate in: walking frequency: 3-4 times per week duration: 45-60 minutes/day seatbelt use: always do you feel safe at home: Yes ROS ROS ED Constitutional Constitutional ED: Denies fever(s) Cardiovascular Cardiovascular: Reports other Details: Right leg swelling ; Denies chest pain Respiratory/Chest Respiratory/Chest: Denies cough Gastrointestinal Gastrointestinal: Denies diarrhea or vomiting Musculoskeletal Musculoskeletal: Denies none Integumentary Denies rash or wounds Neurologic Neurologic: Denies weakness EXAM Physical Exam Const Vital Signs: 09/17/24 18:02 09/17/24 19:45 Temperature 98.2 F 98.1 F Temperature Source Oral Pulse Rate 55 L 68 Respiratory Rate 16 16 Blood Pressure 150/59 H 146/54 H Blood Pressure Mean 89 84 Pulse Ox 93 94 Oxygen Delivery Method Room Air Positive well nourished and well developed General Appearance ED: well developed and NAD HEENT Reports moist mucous membranes normocephalic and atraumatic Eyes General Eye ED: Yes normal appearance of both eyes Neck full ROM Chest Wall Chest: Negative for tenderness Resp normal respiratory effort and normal air movement Effort and Inspection: symmetric chest movement; Negative for respiratory distress Cardio regular rate, regular rhythm and no murmurs Peripheral Pulses: pulses 2+ throughout GI normal to inspection, nondistended, normoactive bowel sounds and non-tender Palpation: Negative for guarding or rebound tenderness present Extremity normal to inspection Extremity Narrative: Mild asymmetric swelling right lower leg compared to the left. No redness. No calf or medial thigh tenderness. Pulses are intact distally. General Extremety ED: Yes edema; Negative for tenderness General Extremity: edema Neuro oriented x3 and no sensory deficits noted Sensorium / Orientation: awake and alert Skin no rashes or lesions noted and no wounds MDM MDM MDM Narrative Medical decision making narrative: Interventions / MDM: Differential diagnosis: Peripheral edema, chronic anticoagulation therapy Diagnosis considered but do not suspect: No clinical compartment syndrome. DVT however ultrasound negative. My EKG interpretation: N/A Imaging independently reviewed and interpreted by myself: Right lower extremity ultrasound: Negative for DVT. External documents reviewed: N/A Test considered but not ordered:N/A ED course: Isolated right lower extremity edema without pain pulses intact. She is on chronic Eliquis. However with isolated swelling we will check ultrasound to rule out DVT. Ultrasound negative. Discussed can use compression stockings and elevate while sitting or laying down. Should continue her blood thinners. Outpatient follow-up with her doctor. All questions were answered. Re-evaluation: stable Disposition discussed with patient/family/significant other: Patient and family Case discussed with consulting clinician: N/A This note was generated with Everpurseation software. It may contain incorrect words, spelling, and punctuation that were not noted in checking the note before signing. Radiography Diagnostic Testing: Clinical Impression(s) from Imaging Studies Venous Duplex 09/17/24 18:19 IMPRESSION: No evidence for DVT in the right lower extremity. Reading Location: [facility] Discharge Plan Triage Chief Complaint: Edema ED Provider: Nelson Shields Dx/Rx/DC Orders Clinical Impression: Localized swelling of right lower leg, Chronic anticoagulation Instructions: ED Peripheral Edema, Unilateral Prescriptions: No Action sertraline 50 mg tablet 50 mg PO DAILY Eliquis 2.5 mg tablet 2.5 mg PO Q12H omeprazole 20 mg capsule,delayed release(DR/EC) 20 mg PO DAILY Patient Comments: STOMACH MEDICINE, ACID REFLUX melatonin 10 mg tablet 10 mg PO QHS losartan 50 mg Tablet 50 mg PO BID levothyroxine 112 mcg tablet 112 mcg PO DAILY ezetimibe 10 mg tablet 10 mg PO DAILY trazodone 50 mg Tablet 50 mg PO QHS 30 Days Qty: 30 0RF aspirin [Adult Low Dose Aspirin] 81 mg tablet,delayed release (DR/EC) 81 mg PO DAILY ondansetron 4 mg tablet,disintegrating 4 mg PO Q6H PRN (Reason: nausea and vomiting) Qty: 10 0RF baclofen 10 mg tablet 10 mg PO TID PRN amlodipine 10 mg tablet 10 mg PO DAILY carvedilol 6.25 mg tablet 6.25 mg PO BID chlorthalidone 25 mg tablet 25 mg PO DAILY oxycodone-acetaminophen 7.5-325 mg tablet 1 tab PO Q8H PRN (Reason: pain) pitavastatin calcium 2 mg tablet 2 mg PO DAILY bisacodyl 5 mg tablet 5 mg PO BID PRN (Reason: constipation) magnesium oxide 200 mg magnesium tablet 400 mg PO DAILY polyethylene glycol 3350 [Miralax] 17 gram/dose powder 17 g PO DAILY (DME) Handicap placard See Rx Instructions .Route .MEDSUPPLY Qty: 1 0RF Rx Instructions: Lifetime nitroglycerin 0.4 mg tablet, sublingual 0.4 mg SUBLINGUAL Q5M PRN (Reason: Chest Pain) Qty: 25 1RF amiodarone 200 mg tablet 200 mg PO DAILY Primary Care Provider: Kenji Osei Referrals: Kenji Osei MD [Primary Care Provider] - 1-2 Weeks Activity Restrictions/Additional Instructions: Ultrasound negative for DVT. Elevate your leg. Continue your home medication including your blood thinner. Follow-up with your doctor. Print Language: Dutch Disposition Disposition: Home, Self Care Discharge Date/Time: 09/17/24 19:47
[2024-09-17 19:45] VITALS: BP 146/54; PULSE 68; RESP 16; TEMP 36.7; O2SAT 94
== END 2024-09-17 19:47 | disposition home or self-care (01) ==
PROVIDERS: Emergency Provider Emergency Medicine; PCP Internal Medicine; Visit Provider Emergency Medicine
DX: R22.41 Localized swelling, mass and lump, right lower limb (principal); I13.0 Hypertensive heart and chronic kidney disease with heart failure and stage 1 through stage 4 chronic kidney disease, or unspecified chronic kidney disease; I50.32 Chronic diastolic (congestive) heart failure; I25.10 Atherosclerotic heart disease of native coronary artery without angina pectoris; N18.9 Chronic kidney disease, unspecified; I25.5 Ischemic cardiomyopathy; E78.00 Pure hypercholesterolemia, unspecified; I25.2 Old myocardial infarction; Z79.899 Other long term (current) drug therapy; Z79.82 Long term (current) use of aspirin; Z79.01 Long term (current) use of anticoagulants; Z95.5 Presence of coronary angioplasty implant and graft
CPT/HCPCS: 93971; 99282